=== PATIENT | female | born 1950 | race Caucasian/White ===

== ENCOUNTER → 2017-11-06 13:21 | Outpatient (CLI) | payer SELFPAY, MEDICARE, OTHER ==
[2017-11-06 13:34] VITALS: BP 141/67; PULSE 46; RESP 16; O2SAT 94; BMI 26.2
--- NOTE | 2017-11-07 08:46 | CA.SCORE ---
Calcium Scoring Date of Study:: 11/06/17 Coronary Calcium Scoring: Coronary calcium score: 0.0 Conclusion: Coronary calcium score: 0.0 Results: The patient underwent high resolution CT imaging of the chest on 11/06/2017 with attention to the coronary arteries. The images were examined and analyzed for the presence and extent of coronary artery calcification using coronary calcium quantification software. The patient was reported as tolerating the procedure well with no adverse events. The coronary calcium score was reported at 0.0. Based upon pre-published reference tables a coronary calcium score of 0 would be indicative of a very low cardiovascular disease risk and less than 5% chance of the presence of coronary artery disease. Impression: Coronary calcium score: 0.0 This note was generated with [employer] dictation software. It may contain incorrect words, spelling, and punctuation that were not noted in checking the note before signing.
== END ==
PROVIDERS: Family Provider Internal Medicine; PCP Internal Medicine; Visit Provider Internal Medicine
DX: E78.00 Pure hypercholesterolemia, unspecified (principal); Z82.49 Family history of ischemic heart disease and other diseases of the circulatory system
CPT/HCPCS: 75571; 76380

== ENCOUNTER → 2017-11-17 13:09 | Outpatient (CLI) | payer MEDICARE, OTHER, SELFPAY ==
--- NOTE | 2017-11-17 13:12 | BI_ITS ---
MAMMOGRAPHY - UNILATERAL DIAGNOSTIC: LEFT BREAST REASON FOR EXAM: Female, 67 years old. One-month history of left breast tenderness. PERTINENT HISTORY: Personal history of breast cancer. Prior right mastectomy. TECHNIQUE: Digital unilateral breast chad (3D mammographic acquisition) in the CC and MLO projections. 2-D mediolateral oblique (MLO) and craniocaudad (CC) views of both breasts were obtained. CAD: Full Field Digital Mammography with Computer Added Detection was performed. COMPARISON: Comparison is made with prior study dated December 26, 2016. FINDINGS: Breast Composition: The breasts are heterogeneously dense, which may obscure small masses. There are no dominant masses or suspicious calcifications. No other significant abnormalities are identified. There has been no significant change since the prior study. BI/DIAG MAMM W/CAD, UNILAT IMPRESSION: Stable unilateral diagnostic mammogram. With the patient's history of left breast tenderness, correlation with ultrasound is recommended. ASSESSMENT CATEGORY: BIRADS Category 0: Incomplete. Need additional imaging evaluation. A letter regarding these results will be sent to the patient by the facility within 30 days. Approximately 10% of breast cancers are not detected by mammography. A normal mammogram should not delay biopsy of a clinically suspicious abnormality. Electronically Signed: Justice Dahl MD at 14:13 EDT Tel [phone], Service support ,
--- NOTE | 2017-11-17 13:59 | US_ITS ---
STUDY: ULTRASOUND BREAST - LEFT REASON FOR EXAM: Female, 67 years old. Pain in the left breast. TECHNIQUE: Axial and longitudinal images of the LEFT breast were performed with a high resolution ultrasound transducer. COMPARISON: Comparison is made with prior mammogram done earlier in the day. FINDINGS: LEFT Breast: The entire left breast was examined by ultrasound. There is a homogeneous fibroglandular tissue. No solid or cystic mass lesion is seen. US/Breast Limited Unilateral IMPRESSION: Unremarkable sonographic evaluation of the left breast. Routine mammographic follow-up is recommended. ASSESSMENT CATEGORY: BIRADS Category 1: Negative. A letter regarding these results will be sent to the patient by the facility within 30 days. Electronically Signed: Justice Dahl MD at 8:37 EDT Tel [phone], Service support ,
== END ==
PROVIDERS: Family Provider Internal Medicine; PCP Internal Medicine; Visit Provider Internal Medicine
DX: N64.4 Mastodynia (principal)
CPT/HCPCS: 76642; 77061; 77065; G0279

== ENCOUNTER → 2018-02-17 16:44 | Outpatient (CLI) | payer MEDICARE, OTHER, SELFPAY ==
[2017-12-15 11:03] VITALS: BMI 26.2
--- NOTE | 2018-02-17 16:52 | RAD_ITS ---
STUDY: X-RAY - RIGHT KNEE REASON FOR EXAM: Female, 67 years old. Right knee pain without acute injury. TECHNIQUE: 4 view(s) of the knee. COMPARISON: None. FINDINGS: Osteopenia. Mild DJD lateral compartment with minimal joint margin osteophytic lipping. Mild to moderate DJD of the medial compartment with joint margin osteophytic lipping slightly more prominent than that seen in the lateral compartment. Very minimal osteophytic lipping about the margins of the patellofemoral joint. No effusion. No fracture. Periarticular soft tissues exhibit no acute process. RAD/Knee 4 or More Views IMPRESSION: Mild tricompartmental DJD. No effusion. No injury. Electronically Signed: Richard Romano MD at 17:49 EST Tel , Service support ,
--- OUTSIDE RECORDS SUMMARY | 2018-05-22 05:23 | XMS RPT_ITS | Continuity of Care Document ---
:1950 Author Organization [facility] Address [address] [facility] [address] [place] [address] Phone Care Team Providers Name Role Phone Mónica Petty MD Unavailable Dr. Junior Boyle Unavailable Yasmin HORNER , Dr. Ishmael Mcarthur Unavailable FLOR Santana Unavailable Unavailable Unavailable Unavailable Problems Name Dates Details Abnormal EKG (R94.31, 794.31) Comments: conduction delay staying now ? rhythm willcheck [facility] cardio hard to tell with artifact. will do echo and CCTA had cath 2012 good no signs and symptoms Status: Active Abnormal thyroid stimulating hormone (TSH) level (R79.89, 790.6) Comments: will recheck was sick recently. was elevatedin TSH. will recheck in 8 weeks explain what mean Status: Active Allergic rhinitis (J30.9, 477.9) Comments: spring/fall--stable Status: Active Asthma (J45.909, 493.90) Comments: stable on low dose advair. has rescue inhaler if need. having signs and symptoms now.night signs and symptoms not have rescue really talk about need to use rescue....willincrease dulera 200 bid during t his season. will go back down january been good now. added bbkler for htn and tremor watch for increase and she did not notice that. Status: Active Atrophic vaginitis (N95.2, 627.3) Comments: dry and irritated and has painful ingtercourse the coconut oil not help no estrogen with breast cancer so told about kelsea laila laser Status: Active Benign essential hypertension (I10, 401.1) Comments: Dr. jose juan ALVES had cough and thickeningin throat better now. talk about andioedema will call me if she has swelling of the lip or tongue had to come off propranolol with low HR Status: Active BMI 24.0-24.9, adult (Z68.24, V85.1) Status: Active BMI 27.0-27.9,adult (Z68.27, V85.23) Status: Active Bradycardia (R00.1, 427.89) Comments: jose juan now stop propranolol all together Status: Active Breast cancer, right (C50.911, 174.9) Comments: stable see heme onc. Status: Active Breast tenderness in female (N64.4, 611.71) Status: Active Chest wall tenderness (R07.89, 786.52) Comments: think costochondritis but willrechek breast. mobic help and will go to tyelnol Status: Active CRP elevated (R79.82, 790.95) Comments: crp coming down down to 11. Status: Active Current nonsmoker (Renamed from Current non-smoker) (Z78.9, V49.89) Status: Active Deliveries (Parity) Comments: Term, 4 Status: Active Encounter for routine adult medical exam with abnormal findings (Z00.01, V70.0) Comments: 09-23-16 colonoscopy 2006 due this year, refuse flu, had tetanus and shingles, still needs prevnar,refuse BD, mammogram , whisper test WNL, last eye exam was in June [address] Bishop and incl uded glaucoma screening, 6CIT test Status: Active Fam hx-ischem heart disease (Z82.49, V17.3) Comments: both parents. stress and echo good -, 13. homocystiene good had cath - good. right now no signs and symptoms but conduction delay on ekg check CCTA =0 and echo Status: Active GERD (gastroesophageal reflux disease) (K21.9, 530.81) Comments: taken off ASA per Jose Juan, on zantac bid Status: Active Hematuria (R31.9, 599.7) Comments: cystoscope 2009. US kidneys 2009. stable Status: Active Hypercholesterolemia (E78.00, 272.0) Comments: reviewed with patient recent tests and hx normal cath, ldl high but in small LDL great, MPO great and LDL -p good. HDL high. at this point pt not want ot go on meds. so hold off. working getting rid saturate. animal fat Status: Active Malignant neoplasm of upper-outer quadrant of right breast in female, estrogen receptor positive (C50.411, 174.4) Comments: seh does not need chemo seeing Dr Jones. had surgery. Status: Active Mitral valve prolapse (I34.1, 424.0) Comments: echo 08-11 mild MR. Status: Active Need for zoster vaccination (Z23, V04.89) Status: Active Osteoporosis (M81.0, 733.00) Comments: labs workup 2009 good. add calcium vit d bid. fosamax dizzy, evista-chd in family. bis phonates severe CP. bd 08-12 doing vibration machine03-20 last bd Status: Active Parkinson disease, symptomatic (G20, 332.0) Aug-2014 Comments: 12-18 patient off Mirapex and on Sinimet tid and seems to be working bettertrev chavez. doing natural med now with Dr. Will tompkins. Status: Active Pregnancies () Comments: 4 Status: Active Screening for cervical cancer (Z12.4, V76.2) Comments: repap pt today because solution in pap cup was Status: Active Screening mammogram, encounter for (Z12.31, V76.12) Status: Active Urinary tract infection, site not specified (N39.0, 599.0) Status: Active Vitamin D deficiency, unspecified (E55.9, 268.9) Comments: good Status: Active Wart (B07.9, 078.10) Comments: removed nylon suture used for hemostasis. Status: Active Well woman exam (Z00.00, V70.0) Comments: mammo 08-12, scope 2006, refuse BD Status: Active Well woman exam (Renamed from Encounter for well woman exam) (Z01.419, V72.31) Comments: 10-27-17 [facility] physical mammogram , colonoscopy , due for prevnar 13, refuse influenza, otherwise immunizations are up to date, BD 1-16-18, PHQ-9 (2) minimal, 6CIT= mammo 12-17, BD 1-18. pap was 2012. Status: Active Medications Name Dates Details Advair Diskus 250-50 MCG/DOSE Inhalation Aerosol Powder Breath Activated 1 puff Aero Pow Br Act bid for 0 days Quantity: 3 {Disk} Refills: 3 Ordered:11-Nov-2017 Mónica Petty MD, MD, Dana M Start : 11-Nov-2017 Active Arimidex 1 MG Oral Tablet 1 (one) Tablet qd for 0 days Quantity: 30 {Tablet} Refills: 0 Ordered:01-Sep-2017 Mónica Petty MD, MD, Dana M Start : 01-Sep-2017 Active Co-Adren uad qd Active Liposomel Glutathione uad qd Active Lisinopril 40 MG Oral Tablet 1 Tablet daily for 0 days Quantity: 90 {Tablet} Refills: 3 Ordered:01-Sep-2017 Jovanny HORNER, Mónica Lemons MD Start : 01-Sep-2017 Active Macrobid 100 MG Oral Capsule uad Capsule postcoital prn for 0 days Quantity: 30 {Capsule} Refills: 3 Ordered:27-Oct-2017 Jovanny HORNER, Mónica Lemons MD Start : 27-Oct-2017 Active Mobic 15 MG Oral Tablet 1 (one) Tablet Tablet in am for 0 days Quantity: 15 {Tablet} Refills: 0 Ordered:27-Oct-2017 FLOR Santana Start : 27-Oct-2017 Active NALTREXONE (Powder) 4.5mg qd Active Comments:comes from [facility], Dr. Will Ruiz Choline uad qd Active Proventil HFA 108 (90 Base) MCG/ACT Inhalation Aerosol Solution 1-2 Aerosol Soln TID/PRN for 0 days Quantity: 1 {Each} Refills: 0 Ordered:26-Dec-2015 Mónica Petty MD, MD, Dana M Start : 26-Dec-2015 Active Sinemet 25-100 MG Oral Tablet 1 (one) Tablet qid for 0 days Quantity: 120 {Tablet} Refills: 3 Ordered:22-Dec-2017 Mónica Petty MD, MD, Dana M Start : 22-Dec-2017 Active VITAMIN D3, 5000UNIT (Oral Tablet) 1 cap Tablet qd for 0 days Quantity: 30 {Tablet} Refills: 0 Ordered:10-Aug-2015 Mónica Petty MD, MD, Dana M Start : 10-Aug-2015 Active ACTONEL, 150MG (Oral Tablet) 1 Tablet monthly for 0 days Quantity: 3 {Tablet} Refills: 3 Ordered:22-Apr-2013 Mónica Petty MD, MD, Dana M Start : 22-Apr-2013 End : 22-Apr-2013 Inactive AUGMENTIN, 875-125MG (Oral Tablet) 1 Tablet bid for 10 days Quantity: 22 {Tablet} Refills: 0 Ordered:08-Mar-2008 RosemaryKellen islas CNP Start : 08-Mar-2008 End : 23-Mar-2008 Inactive Azo Tabs 3 per day PRN Inactive BENADRYL, 25MG (Oral Tablet) 1 QD, PRN for 0 days Refills: 0 Ordered:15-Jun-2009 FLOR SantanaInactive BIAXIN XL PAC, 500MG (Oral Tablet Extended Release 24 Hour) 2 (two) Tablet ER 24HR Daily for 0 days Quantity: 2 {Tablet_ER_24HR} Refills: 0 Ordered:08-May-2006 Aliya Martinez Start : 08-May-2006 End : 04-Sep-2006 Inactive Comments:dispense 2 biaxin xl packs Calan SR 180 MG Oral Tablet Extended Release 1 Tablet ER qd for 0 days Quantity: 90 {Tablet} Refills: 3 Ordered:19-Feb-2016 FLOR Santana Start : 28-Nov-2015 End : 19-Feb-2016 Inactive Cipro 500 MG Oral Tablet 1 (one) Tablet bid for 10 days Quantity: 20 {Tablet} Refills: 0 Ordered:13-Oct-2017 Mónica Petty MD, MD, Dana M Start : 13-Oct-2017 End : 23-Oct-2017 Inactive CIPRO, 500MG (Oral Tablet) 1 (one) Tablet BID for 0 days Quantity: 14 {Tablet} Refills: 0 Ordered:10-Aug-2015 FLOR Santana Start : 04-Jan-2015 End : 10-Aug-2015 Inactive COQ-10, 200MG (Oral Capsule) 1 qd (200 MG) Inactive DIFLUCAN, 150MG (Oral Tablet) 1 (one) Tablet once for 0 days Quantity: 1 {Tablet} Refills: 1 Ordered:15-Jun-2009 FLOR Santana Start : 01-May-2009 Inactive Dopa-Mind uad qd Inactive Dulera 200-5 MCG/ACT Inhalation Aerosol 1 (one) Aerosol Aerosol bid for 0 days Quantity: 1 {Each} Refills: 3 Ordered:12-Jul-2016 Mónica Petty MD, MD, Dana M Start : 12-Jul-2016 End : 12-Jul-2016 Inactive Comments:12 samples given ERGOCALCIFEROL, 59036ZIYU (Oral Capsule) 1 Capsule twice weekly for 0 days Quantity: 8 {Capsule} Refills: 3 Ordered:24-Jul-2010 FLOR Santana Start : 01-Sep-2008 End : 24-Jul-2010 Inactive EVISTA, 60MG (Oral Tablet) 1 Tablet qd for 0 days Quantity: 30 {Tablet} Refills: 5 Ordered:06-Sep-2009 Leola Mitchell Start : 06-Sep-2009 Inactive FOSAMAX, 70MG (Oral Tablet) 1 Q week for 0 days Refills: 0 Ordered:22-Sep-2008 FLOR Santana End : 22-Sep-2008 Inactive GUAIATUSSIN AC, 100-10MG/5ML (Oral Syrup) 1 Syrup 1 tsp qhs prn for 0 days Quantity: 6 {Ounce(s)} Refills: 0 Ordered:08-Mar-2008 FLOR Santana Start : 08-Mar-2008 End : 02-Aug-2008 Inactive Inderal LA 60 MG Oral Capsule Extended Release 24 Hour 1 (one) Capsule in am for 0 days Quantity: 30 {Capsule} Refills: 6 Ordered:01-Sep-2017 Mónica Petty MD, MD, Mónica Mcarthur Start : 01-Sep-2017 End : 01-Sep-2017 Inactive Comments:bradycardia KEFLEX, 500MG (Oral Capsule) 1 (one) Capsule bid for 7 days Quantity: 14 {Capsule} Refills: 0 Ordered:29-May-2009 Won AYERS Inessa Start : 27-Apr-2009 End : 04-May-2009 Inactive Lentra uad qd Inactive LEVAQUIN, 500MG (Oral Tablet) 1 Tablet qd for 0 days Quantity: 10 {Tablet} Refills: 0 Ordered:24-Jul-2010 FLOR Santana Start : 15-Mar-2010 End : 24-Jul-2010 Inactive NASONEX, 50MCG/ACT (Nasal Suspension) 2 (two) Suspension Daily for 0 days Refills: 0 Ordered:07-Aug-2009 Gisela Narvaez Start : 02-Nov-2008 End : 04-Sep-2006 Inactive Pramipexole Dihydrochloride 1.5 MG Oral Tablet 1 (one) Tablet TID for 0 days Quantity: 90 {Tablet} Refills: 6 Ordered:11-Nov-2017 Mónica Petty MD, MD, Dana M Start : 11-Nov-2017 End : 11-Nov-2017 Inactive PREMARIN, 0.625MG/GM (Vaginal Cream) 1 Cream PV 1 jim twice a week for 0 days Quantity: 1 {Cream} Refills: 6 Ordered:06-Nov-2010 FLOR Santana Start : 06-Sep-2009 End : 06-Nov-2010 Inactive Procite-D uad qd Inactive Prolent uad qd Inactive PYRIDIUM, 200MG (Oral Tablet) 1 (one) Tablet tid prn for 0 days Quantity: 15 {Tablet} Refills: 0 Ordered:15-Jun-2009 FLOR Santana Start : 05-Jun-2009 Inactive TAURINE, 500MG (Oral Capsule) 1 qd (500 MG) Inactive ZETIA, 10MG (Oral Tablet) 1 Tablet qd for 0 days Quantity: 90 {Tablet} Refills: 3 Ordered:10-Aug-2015 Mónica Petty MD, MD, Dana M Start : 10-Aug-2015 End : 10-Aug-2015 Inactive Comments:patient did not like the side effects that she read ATELVIA, 35MG (Oral Tablet Delayed Release) [address] weekly for 0 days Quantity: 4 {Tablet_DR} Refills: 11 Ordered:14-May-2012 Mónica Petty MD, MD, Dana M Start : 14-May-2012 End : 14-May-2012 Discontinued METANX, 3-35-2MG (Oral Tablet) 1 Tablet daily for 0 days Quantity: 30 {Tablet} Refills: 3 Ordered:27-Feb-2012 Mónica Petty MD, MD, Mónica M Start : 27-Feb-2012 End : 19-Oct-2013 Discontinued Mirapex ER 0.75 MG Oral Tablet Extended Release 24 Hour 1 (one) Tablet tid for 0 days Quantity: 90 {Tablet} Refills: 0 Ordered:01-Sep-2017 Mónica Petty MD, MD, Dana M Start : 01-Sep-2017 End : 01-Sep-2017 Discontinued Neupro 3 MG/24HR Transdermal Patch 24 Hour 1 (one) Patch apply and change patch every 24 hours. for 0 days Quantity: 30 {Patch} Refills: 6 Ordered:27-Oct-2017 Mónica Petty MD, MD, Dana M Start : 27-Oct-2017 End : 27-Oct-2017 Discontinued PREDNISONE, 20MG (Oral Tablet) Tablet 2 a day for 5d, 1 for 5d, 1/2 for 5 d for 0 days Refills: 0 Ordered:01-Apr-2006 Aliya Martinez Start : 01-Apr-2006 End : 02-Jul-2007 Discontinued VISTARIL, 25MG (Oral Capsule) Capsule QID/PRN for 0 days Quantity: 10 {Capsule} Refills: 0 Ordered:01-Apr-2006 Aliya Martinez Start : 01-Apr-2006 End : 02-Jul-2007 Discontinued ZANTAC, 150MG (Oral Capsule) 1 bid for 0 days Refills: 0 Ordered:15-Nov-2014 Mónica Petty MD, MD, Dana M End : 15-Nov-2014 Discontinued Comments:This order discontinued per [facility]. Allergies and Adverse Reactions Name Dates Details Bactrim *ANTI-INFECTIVE AGENTS - MISC.* (Allergy) Status: Active Sulfa Drugs (Allergy) Status: Active Comments: per pt 09/25/16 Past Medical History Name Dates Details Abdominal pain, acute, left lower quadrant (R10.32, 789.04) Status: Inactive as of 10-Aug-2015 Acute sinusitis, unspecified (J01.90, 461.9) Status: Inactive as of 24-Aug-2008 BMI 25.0-25.9,adult (Z68.25, V85.21) Status: Resolved as of 22-Dec-2017 Cough (R05, 786.2) Status: Inactive as of 24-Jerzy-2009 Diverticulitis (K57.92, 562.11) Status: Inactive as of 10-Aug-2015 Dysuria (R30.0, 788.1) Comments: ? stress son stroke will increase water and cranberry because urine no wbc. Status: Inactive as of 15-Jun-2009 Dysuria (R30.0, 788.1) 18-Apr-2010 Status: Inactive as of 10-Aug-2015 Elevated blood-pressure reading without diagnosis of hypertension (R03.0, 796.2) Comments: at home 120/80's Status: Inactive as of 06-Nov-2010 Knee pain (M25.569, 719.46) Comments: better than was with injection but stil bad at end of day cheange aleve over to zorvalex with samples. Xray and PT if not better then to mri and orthosx. Status: Inactive as of 10-Aug-2015 Need for prophylactic vaccination and inoculation against influenza (Z23, V04.81) Status: Inactive as of 10-Aug-2015 Need for Tdap vaccination (Renamed from Need for agadtebygz-uyzuaku-nvoskurlk (Tdap) vaccine, adult/adolescent) (Z23, V06.1) Status: Resolved as of 01-Sep-2017 Osteitis deformans without mention of bone tumor (731.0) Status: Inactive as of 05-Nov-2011 Other specified viral infection, in conditions classified elsewhere and of unspecified site (B97.89, 079.89) Status: Inactive as of 15-Jun-2009 Pain in forearm, unspecified laterality (M79.639, 729.5) Comments: left tennis elbow--talk about rest, brace, nsaids handout given not better inject. 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 Status: Inactive as of 10-Aug-2015 Syncope and collapse (R55, 780.2) Comments: presyncope and really vasovagal reaction? why. had eye sclera bleed. ? blood sugar. check labs and discuss. Status: Inactive as of 10-Aug-2015 Unspecified Diagnosis Status: Inactive as of 10-Aug-2015 Unspecified Diagnosis Status: Inactive as of 10-Aug-2015 Unspecified Diagnosis Status: Resolved as of 01-Sep-2017 Unspecified Diagnosis Status: Inactive as of 15-Jun-2009 Unspecified Diagnosis Status: Inactive as of 10-Aug-2015 Unspecified open wound of other finger without damage to nail, initial encounter (S61.208A, 883.0) Status: Inactive as of 15-Jun-2009 Urinary frequency (R35.0, 788.41) Status: Inactive as of 10-Aug-2015 UTI symptoms (R39.9, 788.99) Status: Inactive as of 26-Dec-2015 Well Female (V70.0) (Renamed from Well Female (I)) (V70.0) Status: Inactive as of 10-Aug-2015 Wheezing (R06.2, 786.07) Status: Inactive as of 24-Aug-2008 Procedures Procedure Dates Details appendectomy in 1976 Completed breast biopsy 1999, 2000 Completed thermablation at 51 yo Completed tubal ligation 1977 Completed Date Value Details 15-Dec-2017 Oncology Visit Report Result: Comments: See Note; NOTES: [facility] [address] [place] [address] OFFICE VISIT Date of Service: 12/15/17 1053 MR#: [id number] Acct: [id number] Name: AZALIA HUNTLEY Rep #: [id number] : 1950 From: Angel Shin MD Age/Sex: 67/F Location: [facility] Status: Signed - Problem List (1) Primary cancer of right female breast Status: Chronic (2) Osteopenia St atus: Chronic - Date of Service Date of Service:: 12/15/17 - Chief Complaint Breast cancer - History of Present Illness Patient is a 66-year-old female who has been compliant with screening mammogra phy who in the late summer early fall 2016 felt a painless lump in the right breast. She waited until her screening mammogram in December 2016 which confirmed an abnormality that on biopsy was found to b e an invasive lobular carcinoma in January 2017. On February 12, 2017 she underwent a right breast mastectomy and sentinel lymph node biopsy that revealed an invasive lobular cancer measuring 2 cm in maximum diameter with an over old grade 2 (score 7) with no evidence of metastatic cancer in 1 identified sentinel lymph node. The cancer was in a single focus margins were -1.8 cm no lymphovascular inv asion. Tumor is ER positive (95%) UT positive (40%) (and HER-2 not overexpressed. Patient made an uneventful recovery from her surgery. Oncotype DX testing showed her to be at low risk group with a sco re of 13. Her past medical history is notable for Parkinson's disease, hypertension and vitamin D deficiency state. No family history of breast cancer Treatment: - February 12, 2017 she underwent a r ight breast mastectomy and sentinel lymph node biopsy. 2- Arimidex 03/2017- - Past Medical/Social History Past Medical History Cancer: Breast cancer Social History Social History: No changes Smoking Status Never smoker Review of Systems Constitutional:: Reports: Weakness, - - Parkinson's limits her activities Infrequent tolerable hot flashes. Denies: Fever, Sweats, Weight loss, Appetite change, Chills Cardiovascular:: Denies: Chest pain, Palpitations, Dyspnea on exertion, Orthopnea, PND, Shortness of breath Respiratory: Denies: Cough, Hemoptysis, Shortness of Breath, Wheezing Gastrointestinal: : Denies: Abdominal pain, Nausea, Vomiting, Diarrhea, Constipation, Hematochezia Genitourinary: Denies: Dysuria, Hematuria, 15, Flank pain Musculoskeletal:: Reports: - - Nonspecific musculoskeletal ache s and pains, manageable with Tylenol. Denies: Back pain, Myalgia, Arthralgia Skin: Denies: Rash, Skin Changes, Wounds Neurological:: Reports: - - Parkinson's. Denies: Headache, Dizziness, Visual changes , Tinnitus, Hearing loss Psychiatric: Denies: Anxiety, Depression, Homicidal Ideations, Suicidal Ideations Vital Signs Height 5 ft 2 in Weight: 65.771 kg Weight in Pounds 145.0 lbs Pulse Ox 97 - Ph ysical Exam General: Alert, Oriented x3, No apparent distress, - - ECOG 1-2, parkinsonian HEENT: Atraumatic, PERRLA, EOMI, Normocephalic Oropharynx:: Dry mucosa Neck:: Supple, Trachea midline. Negative for: JVD, bilateral Cardiac:: Regular rate, Regular rhythm, Normal S1, Normal S2. Negative for: Murmur Lungs: Clear to auscultation, Excusion symmetrical. Negative for: Rhonchi, Wheezes Abdomen:: Soft, Non-tender, Non-distended. Negative for: Hepatosplenomegaly Extremities:: Negative for: Cyanosis, Edema Neurological: Neuro grossly intact - No lateralization, parkinsonian Skin:: Negative for: Lesions, Rash, Petechiae, Ecchymosis Psychiatric:: Appropriate affect, Euthymic Lymphatics:: Negative for: Cervical lymphadenopathy, Supraclavicular lymphadenopathy, Axillary lymphadenopathy Diagnostic Data: Ma mmogram and ultrasound November 2017, no evidence to suggest malignancy Assessment and Plan 1- 67 year-old female with stage Ia (T1c, N0, M0) invasive lobular carcinoma of the right breast grade 2, E R positive, UT positive, HER-2/skylar not overexpressed. Patient is status post mastectomy with sentinel lymph node biopsy January 2017. Adequate negative margin. Oncotype DX score low risk group. Starte d systemic adjuvant hormonal therapy with an aromatase inhibitor for at least 5 years March 2017. Well-tolerated with no notable side effects. 2- progressive bone loss secondary to menopause with supe r added aromatase inhibitor therapy started March 2017. Advise continue vitamin D calcium supplement plus Prolia/6M. 3-annual mammogram to schedule, December 2018. Impression and recommendation discu ssed. Follow-up in 3 months Medications: Prescriptions This Visit Medication Instructions Recorded Anastrozole [Arimidex] 1 mg PO DAILY 90 Days #90 tab 09/11/17 Primary Care Provider: Mónica galicia Provider: Angel Shin MD 12/15/17 1116 <Electronically signed by Angel Shin MD> Date Angel Shin MD [facility] Signature: Date (if applicable) CC: 17-Nov-2017 Breast Limited Unilateral Result: Comments: See Note; NOTES: [facility] [address] [place] [address] Breast Limited Unilateral MR#: [id number] Acct: [id number] Name: PARUL HUNTLEY Rep # : [id number] : 1950 F 67 From: Justice Gerardo MD PCP: Mónica Petty MD Status: REG CLI Study: Breast Limited Unilateral Date of Exam: 11/17/17 Exam# [id number] Ordering Dr: Mónica Petty MD STUDY: ULTRASOUND BREAST - LEFT REASON FOR EXAM: Female, 67 years old. Pain in the left breast. TECHNIQUE: Axial and longitudinal images of the LEFT breast were performed with a high resolution ultra sound transducer. COMPARISON: Comparison is made with prior mammogram done earlier in the day. FINDINGS: LEFT Breast: The entire left breast was examined by ultras ound. There is a homogeneous fibroglandular tissue. No solid or cystic mass lesion is seen. US/Breast Limited Unilateral IMPRESSION: Unremarkable sonographic evaluation of the left breast. Routine mammographic follow-up is recommended. ASSESSMENT CATEGORY: BIRADS Category 1: Negative. A letter regarding these results will be sent to the patient by the facility within 30 days. Electronically Signed: Justcie Gerardo MD at 8:37 EDT Tel [phone], Service support , Fax CC: Mónica Petty MD Yarn Tester: Signed 17-Nov-2017 DIAG MAMM W/CAD, UNILAT Result: Comments: See Note; NOTES: [facility] [address] [place] [address] DIAG MAMM W/CAD, UNILAT MR#: [id number] Acct: [id number] Name: PARUL HUNTLEY Rep #: [id number] : 1950 F 67 From: Justice Gerardo MD PCP: Mónica Petty MD Status: REG CLI Study: DIAG MAMM W/CAD, UNILAT Date of Exam: 11/17/17 Exam# [id number] Ordering Dr: Mónica Petty MD [facility] MOGRAPHY - UNILATERAL DIAGNOSTIC: LEFT BREAST REASON FOR EXAM: Female, 67 years old. One-month history of left breast tenderness. PERTINENT HISTORY: Personal history of breast cancer. Prior right mast ectomy. TECHNIQUE: Digital unilateral breast chad (3D mammographic acquisition) in the CC and MLO projections. 2-D mediolateral oblique (MLO) and craniocaudad (CC) views of both breasts were obtained. CAD: Full Field Digital Mammography with Computer Added Detection was performed. COMPARISON: Comparison is made with prior study dated December 26, 2016. FINDINGS: B reast Composition: The breasts are heterogeneously dense, which may obscure small masses. There are no dominant masses or suspicious calcifications. No other significant abnormalities are identified. There has been no significant change since the prior study. BI/DIAG MAMM W/CAD, UNILAT IMPRESSION: Stable unilateral diagnostic mammogram. With t he patient's history of left breast tenderness, correlation with ultrasound is recommended. ASSESSMENT CATEGORY: BIRADS Category 0: Incomplete. Need additional imag ing evaluation. A letter regarding these results will be sent to the patient by the facility within 30 days. Approximately 10% of breast cancers are not detected by mammography. A normal mammogram shou ld not delay biopsy of a clinically suspicious abnormality. Electronically Signed: Justice Gerardo MD at 14:13 EDT Tel [phone], Service support , CC: Mónica Petty MD Yarn Tester: Signed 06-Nov-[address] w/CCTA Result: Comments: See Note; NOTES: [facility] Imaging Services [address] [place] [address] [id number] w/CCTA MR#: [id number] Acct: [id number] Name: PARUL HUNTLEY Rep #: [id number] : 1950 F 67 From: Farhat Montalvo DO PCP: Mónica Petty MD Status: REG CLI Study: Limited Chest CT w/CCTA Date of Exam: 11/06/17 Exam# [id number] Ordering Dr: Mónica Petty MD STUDY: CAR DIA CALCIUM SCORING - CT CHEST REASON FOR EXAM: Female, 67 years old. Elevated cholesterol. History of breast cancer. RADIATION DOSAGE (If Supplied By Facility): CTDIvol = ( 12.19 ) mGy, DLP = ( 243. 79 ) mGycm TECHNIQUE: Axial non-enhanced images were acquired through the heart for the sole purpose of measuring coronary artery calcium. Individualized dose optimization techniques were used for [facility] s CT. COMPARISON: Chest, January 26, 2013. FINDINGS: This portion of the report is being generated solely for the evaluation of noncoronary artery structures whic h have been assessed on plain another report. The visualized lungs are clear. The heart is normal in size. Normal pericardium. Normal mediastinum and vazquez. Normal pulmonary arteries. There is minimal atherosclerotic changes of the thoracic aorta without aneurysm. Normal thoracic spine. There is absence of the right breast. Normal visualized upper abdomen. ORD ER #: [id number] CT/Limited Chest CT w/CCTA IMPRESSION: 1. Status post right mastectomy. 2. There is no intrathoracic abnormality. Electronically Signed: Farhat Montalvo DO at 18:54 EDT Tel [phone], Service support , CC: Mónica Petty MD Yarn Tester: Signed 11-Sep-2017 Oncology Visit Report Result: Comments: See Note; NOTES: [facility] [address] [place] [address] [place] [address] OFFICE VISIT Date of Service: 09/11/17 [facility] MR#: [id number] Acct: [id number] Name: AZALIA HUNTLEY Rep #: [id number] : 1950 From: Angel Shin MD Age/Sex: 67/F Location: OMD Status: Signed - Problem List (1) Primary cancer of right female breast Status: Chronic (2) Osteopenia St atus: Chronic - History of Present Illness Patient is a 66-year-old female who has been compliant with screening mammography who in the late summer early fall 2016 felt a painless lump in the right br east. She waited until her screening mammogram in December 2016 which confirmed an abnormality that on biopsy was found to be an invasive lobular carcinoma in January 2017. On February 12, 2017 she und erwent a right breast mastectomy and sentinel lymph node biopsy that revealed an invasive lobular cancer measuring 2 cm in maximum diameter with an over old grade 2 (score 7) with no evidence of metasta tic cancer in 1 identified sentinel lymph node. The cancer was in a single focus margins were -1.8 cm no lymphovascular invasion. Tumor is ER positive (95%) UT positive (40%) (and HER-2 not overexpresse d. Patient made an uneventful recovery from her surgery. Oncotype DX testing showed her to be at low risk group with a score of 13. Her past medical history is notable for Parkinson's disease, hyperte nsion and vitamin D deficiency state. No family history of breast cancer Treatment: - February 12, 2017 she underwent a right breast mastectomy and sentinel lymph node biopsy. 2- Arimidex 03/2017- - P ast Medical/Social History Past Medical History Cancer: Breast cancer Social History Social History: No changes Smoking Status Never smoker Review of Systems Constitutional:: Reports: - - Activiti es limited by Parkinson's No hot flashes. Denies: Fever, Sweats, Weight loss, Appetite change, Chills Cardiovascular:: Denies: Chest pain, Palpitations, Dyspnea on exertion, Orthopnea, PND, Shortness of breath Respiratory: Denies: Cough, Hemoptysis, Shortness of Breath, Wheezing Gastrointestinal:: Denies: Nausea, Vomiting, Diarrhea, Constipation, Hematochezia Genitourinary: Denies: Dysuria, Hematuria, 15, Flank pain Musculoskeletal:: Denies: Back pain, Myalgia, Arthralgia Skin: Denies: Rash, Skin Changes, Wounds Neurological:: Reports: Tremors, - - Parkinson's. Denies: Headache, Dizziness, Visual ch anges, Tinnitus, Hearing loss Psychiatric: Denies: Anxiety, Depression, Homicidal Ideations, Suicidal Ideations Comment: No lumps in breasts Vital Signs Height 5 ft 2 in Weight: 66.043 kg Weight in Rebecca nds 145.6 lbs Pulse Ox 94 - Physical Exam General: Alert, Oriented x3, No apparent distress, - - ECOG 1-2 Parkinsonian HEENT: Atraumatic, PERRLA, EOMI, Normocephalic Oropharynx:: Dry mucosa Neck:: S upple, Trachea midline. Negative for: JVD, bilateral Cardiac:: Regular rate, Regular rhythm, Normal S1, Normal S2. Negative for: Murmur Lungs: Clear to auscultation, Excusion symmetrical. Negative for: Rhonchi, Wheezes Abdomen:: Soft, Non-tender, Non-distended. Negative for: Hepatosplenomegaly Extremities:: Negative for: Cyanosis, Edema Neurological: Neuro grossly intact - With parkinsonian features a nd tremor Skin:: Negative for: Lesions, Rash, Petechiae, Ecchymosis Psychiatric:: Appropriate affect, Euthymic Lymphatics:: Negative for: Cervical lymphadenopathy, Supraclavicular lymphadenopathy, Axill handy lymphadenopathy Assessment and Plan 1- 66-year-old female with stage Ia (T1c, N0, M0) invasive lobular carcinoma of the right breast grade 2, ER positive, UT positive, HER-2/skylar not overexpressed. Patient is status post mastectomy with sentinel lymph node biopsy January 2017. Adequate negative margin. Oncotype DX score low risk group. Started systemic adjuvant hormonal therapy with an aromatas e inhibitor for at least 5 years March 2017. Well-tolerated with no notable side effects. 2-progressive bone loss secondary to menopause with super added aromatase inhibitor therapy started March 04. Advise continue vitamin D calcium supplement plus Prolia/6M. 3-annual mammogram to schedule, December 2017. Impression and recommendation discussed. Follow-up in 3 months Medications: Prescription s This Visit Medication Instructions Recorded Anastrozole [Arimidex] 1 mg PO DAILY 90 Days #90 tab 06/12/17 Primary Care Provider: Mónica Petty Referring Provider: Angel Shin MD 09/11/17 112 0 <Electronically signed by Angel Shin MD> Date Angel Shin MD Cosigner Signature: Date (if applicable) CC: Mónica Petty MD 22-Aug-2017 Cardiology Visit Report Result: Comments: See Note; NOTES: [facility] [address] [place] [address] OFFICE VISIT Date of Service: 08/22/17 MR#: [id number] Acct: [id number] Name: MARY HUNTLEY Rep #: [id number] : 1950 Provider: Johann Drake MD Age/Sex: 67/F Location: [facility] Status: Signed HPI HPI Chief Complaint: Follow-up visits. Details: PARUL HUNTLEY, is a 67 F who presen ts to the office today for a follow-up visit. She is a lady with a history of hypertension recently developed Parkinson's a left bundle branch block who returns for follow-up visit. She denies any chest pain or shortness breath or paroxysmal nocturnal dyspnea or pedal edema she has complained of fatigue but is not clear whether this is secondary to her medication or whether from her previous experienc e of breast cancer. She has had no neck arm or jaw discomfort suggest angina her physical exam today demonstrates clear lung melara regular rate and rhythm bradycardia and normal blood pressures. 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 DAILY 02/10/17 [History Confirmed 08/22/17] Breast Prosthesis #1 ea 03/04/17 [Rx Confirme d 08/22/17] Mastectomy Bra #4 ea 03/05/17 [Rx Confirmed 04/04/17] Anastrozole [Arimidex] 1 mg PO DAILY 90 Days #90 tab 06/12/17 [Rx Confirmed 08/22/17] Mastectomy bra #12 ea 06/12/17 [Rx] denosumab 120 mg/1.7 mL (70 mg/mL) subcutaneous solution 120 mg SC .COMPLEX 08/22/17 [History Confirmed 08/22/17] lisinopril 40 mg tablet 40 mg PO QDAY #90 tab 08/22/17 [Rx Confirmed 08/22/17] pramipexole 0.75 mg tab let 0.75 mg PO TID tab 08/22/17 [History Confirmed 08/22/17] Ejection fraction %: 60 to 64 PFSH Medical History Parkinson disease (Chronic) Osteopenia (Chronic) Nonrheumatic mitral (valve) insufficiency (Chronic) Sinus bradycardia (Chronic) HLD (hyperlipidemia) (Chronic) HTN (hypertension) (Chronic) Estrogen receptor positive status [ER+] (Chronic) Ac quired absence of right breast and nipple (Chronic) Asthma (Chronic) Estrogen receptor positive status (ER+) (Chronic) GERD (gastroesophageal reflux disease) (Chronic) INVASIVE LOBULAR CARCINOMA RIGHT B REAST (Chronic) Ptosis of breast (Chronic) Disproportion of reconstructed breast (Resolved) Primary cancer of right female breast (Inactive) Surgical History S/P right mastectomy (Chronic) History of left heart catheterization (Chronic 01/26/13) BREAST BIOPSY X2 IN 1997 (Chronic) History of appendectomy (Chronic) THERMABLATION (Chronic) TUBAL LIGATION (Chronic) Family History Father , AGE 60 CAD (coronary artery disease) Myocardial infarction Mother , AGE 70 Myocardial infarction CAD (coronary artery disease) Diabetes Sister CAD (coronary artery disease) Social History Smoking Status: Never smoker alcohol intake: current alcohol intake frequency: other Alcohol typ e: wine details: PATIENT HAS A RARE GLASS OF WINE substance use type: does not use ROS Const Const: Negative for fatigue, weakness, body ache, fever(s), headache(s), chills, frequent falls, night sweats, daytime sleepiness, difficulty sleeping, excessive sweating, weight gain, weight loss, increased appetite, poor appetite, anorexia or other Eyes Eyes: Negative for blind spots, loss of peripher al vision, transient loss of vision, blurry vision, change in vision, double vision, floaters, tunnel vision or other ENT ENT: Negative for headache(s), dizziness, hearing loss, tinnitus, Nosebleed/epis taxis, balance problems, post nasal drip, lip swelling, tongue swelling, bleeding gums, hoarseness, neck pain, dry mouth or other Cardio Chest Pain: No Palpitations: No Edema: None Muscle aches with wal dilip: None Resp Respiratory: Positive for Cough; negative for SOB with activity, SOB at rest, SOB orthopnea\SOB lying down, Coughing up blood/hemoptysis, chest congestion, pain on inspiration, snoring, stridor, wheezing, crackles, paroxysmal nocturnal dyspnea or other GI GI: Negative nausea, vomiting, heartburn, constipation, belching, bloating, cramping, vomiting blood/hematemesis, bright, red blood in stools, black,tarry stools, loose stools, Difficulty Swallowing or other : Negative for hematuria, frequent nighttime urination/ nocturia, erectile dysfunction or abnormal vaginal bleeding Musc Musc: Negative for balance problems, muscle aches/ myalgia, muscle weakness or joint pain Skin Skin: Negative redness, non-healing lesions, rash, unusual bruising, skin ulcer, wounds, jaundice or other Neuro Neuro: Negative for weakness, headache(s), frequent falls, blurry vision, double vision, dizziness, lightheadedness, near syncope, syncope, orthostatic symptoms, confusion, memory loss, restless l egs, vertigo, seizures, lack of coordination or other Blaine Hematologic/Lymphatic: Negative for easy bleeding, easy bruising, enlarged lymph nodes or other Endo Endo: Negative for fatigue, excessive swea ting, cold intolerance, heat intolerance, flushing, increased thirst/drinking, increased hunger, hair loss, hair growth or other Psych Psych: Negative for anxiety, depression, thoughts of harming anyone , thoughts of harming yourself, visual hallucinations, panic attacks or audible hallucinations Allergy Allergy/Immunology: Negative for lip swelling, Negative for tongue swelling, Negative for rash, Neg ative for throat swelling, Negative for hives Cardiology Exam Const Appearance: cooperative, healthy appearing, well developed, well groomed and no acute distress Nutritional Appearance: well nourishe d and average body habitus Orientation: alert, awake and oriented x3 Head Head: normal to inspection, normocephalic and atraumatic Ears: hearing grossly normal bilaterally and external ears normal Nose: external nose normal, nasal mucous membranes and turbinates normal, nares normal, septum normal, no nasal discharge Face and Sinus: face symmetric Mouth: oral mucosae normal, tongue normal, oropharynx normal and moist mucous membranes Teeth and gingiva: dentition normal Throat: posterior oropharynx normal, tonsils normal and uvula midline Eyes General: appearance normal, both eyes and all related str uctures Eyelids: eyelids normal Conjunctivae: conjunctivae normal Pupils: PERRL, normal by confrontation and accommodation normal EOM: EOM intact bilaterally Neck Neck: normal visual inspection, trachea midline and no JVD JVD: +5 Carotids: normal carotid upstroke and bounding pulses Chest Chest inspection: normal inspection of the chest, symmetric chest movement and normal respiratory effort Auscultat ion: Bilateral: Clear to Auscultation Cardio Palpation: normal PMI Rate: regular rate Rhythm: regular rhythm Heart sounds: S1 normal, S2 normal and normal, physiologic split S2; negative rub, gallop or murmur GI GI: normal to inspection, soft, no hepatosplenomegaly and bowel sounds present Neuro General: alert, awake, oriented x3, no focal sensory deficit, gait normal and moves all extremities Skin Sk in: no rashes or lesions noted Extremities Pulses: Normal: Right Femoral Pulse, Left Femoral Pulse, Right Dorsalis Pedis Pulse, Left Dorsalis Pedis Pulse, Right Posterior Tibial Pulse, Left Posterior Ti bial Pulse, Right Radial Pulse, Left Radial Pulse Lower Extremity Edema: None: Bilateral Musculoskel Musculoskeletal: No joint tenderness Psych Psychological: normal affect Assessment AND Plan 1. Esse ntial hypertension I10 Plan She does have a history of hypertension and with his to have a left bundle branch block as she is bradycardic I will suggest that we discontinue the propranolol and increase her lisinopril to 40 mg once a day. I suspect that this would be better at keeping her blood pressure under good control and making her feel better as well. No other changes will be made I discussed the above with her she does understand. Thank you for allowing me to participate in the care of your patient. 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) Coding Level of Care Code Off vis,est,level 3 Diagnoses Essential hypertension I10 Hypertension type: essential hypertension Coding Level of Care Code Off vis,est,leve l 3 Diagnoses Essential hypertension I10 Hypertension type: essential hypertension 08/22/17 1055 <Electronically signed by Johann Drake MD> Date Johann Aquinoer Signature: Date (if applicable) CC: Mónica Petty MD 12-Jun-2017 Oncology Visit Report Result: Comments: See Note; NOTES: [facility] [address] [place] [address] OFFICE VISIT Date of Service: 06/12/17 1108 MR#: [id number] Acct: [id number] Name: AZALIA HUNTLEY Rep #: [id number] : 1950 From: Angel Shin MD Age/Sex: 66/F Location: OMD Status: Signed - Problem List (1) Primary cancer of right female breast Status: Acute (2) Osteopenia Stat us: Chronic - Date of Service Date of Service:: 06/12/17 - Chief Complaint Breast cancer - History of Present Illness Patient is a 66-year-old female who has been compliant with screening mammograph y who in the late summer early fall 2016 felt a painless lump in the right breast. She waited until her screening mammogram in December 2016 which confirmed an abnormality that on biopsy was found to be an invasive lobular carcinoma in January 2017. On February 12, 2017 she underwent a right breast mastectomy and sentinel lymph node biopsy that revealed an invasive lobular cancer measuring 2 cm in ma ximum diameter with an over old grade 2 (score 7) with no evidence of metastatic cancer in 1 identified sentinel lymph node. The cancer was in a single focus margins were -1.8 cm no lymphovascular invas ion. Tumor is ER positive (95%) UT positive (40%) (and HER-2 not overexpressed. Patient made an uneventful recovery from her surgery. Oncotype DX testing showed her to be at low risk group with a score of 13. Her past medical history is notable for Parkinson's disease, hypertension and vitamin D deficiency state. No family history of breast cancer Treatment: February 12, 2017 she underwent a rig ht breast mastectomy and sentinel lymph node biopsy. 2- Arimidex 03/2017- - Past Medical/Social History Past Medical History Cancer: Breast cancer Social History Smoking Status Never smoker Review of Systems Constitutional:: Reports: - - Minimal infrequent hot flashes. Denies: Fever, Sweats, Weight loss, Appetite change, Chills Cardiovascular:: Denies: Chest pain, Palpitations, Dyspnea on exerti on, Orthopnea, PND, Shortness of breath Respiratory: Denies: Cough, Hemoptysis, Shortness of Breath, Wheezing Gastrointestinal:: Denies: Abdominal pain, Nausea, Vomiting, Diarrhea, Constipation, Hematoc hezia Genitourinary: Denies: Dysuria, Hematuria, 15, Flank pain Musculoskeletal:: Reports: Arthritis - No notable change after AI therapy, Arthralgia. Denies: Back pain, Myalgia Skin: Denies: Rash, Skin Changes, Wounds Neurological:: Denies: Headache, Dizziness, Visual changes, Tinnitus, Hearing loss Psychiatric: Denies: Anxiety, Depression, Homicidal Ideations, Suicidal Ideations Vital Signs Height 5 ft 1.6 in Weight: 65.771 kg Weight in Pounds 145.0 lbs Pulse Ox 96 - Physical Exam General: Alert, Oriented x3, No apparent distress HEENT: Atraumatic, PERRLA, EOMI, Normocephalic Oropharynx:: Dry mucosa Neck:: Supple, Trachea midline. Negative for: JVD, bilateral Cardiac:: Regular rate, Regular rhythm, Normal S1, Normal S2. Negative for: Murmur Lungs: Clear to auscultation, Excusion symmetrical . Negative for: Rhonchi, Wheezes Abdomen:: Bowel sounds x 4, Soft, Non-tender, Non-distended. Negative for: Hepatosplenomegaly Extremities:: Negative for: Cyanosis, Edema Neurological: Neuro grossly int act Skin:: Negative for: Lesions, Rash, Petechiae, Ecchymosis Psychiatric:: Appropriate affect, Euthymic Lymphatics:: Negative for: Cervical lymphadenopathy, Supraclavicular lymphadenopathy, Axillary ly mphadenopathy Diagnostic Data: Bone density March 2017: IMPRESSION: The patient is considered osteopenic as outlined according to World Cal Organization (WHO) criteria with a moderate fracture risk . There has been worsening of bone density since the previous examination. Assessment and Plan 1- 66-year-old female with stage Ia (T1c, N0, M0) invasive lobular carcinoma of the right breast grade 2, ER positive, UT positive, HER-2/skylar not overexpressed. Patient is status post mastectomy with sentinel lymph node biopsy January 2017. Adequate negative margin. Oncotype DX score low risk group. Star huong systemic adjuvant hormonal therapy with an aromatase inhibitor for at least 5 years March 2017. Well-tolerated with no notable side effects. 2- progressive bone loss secondary to menopause with keene per added aromatase inhibitor therapy started March 2017. Advise continue vitamin D calcium supplement plus Prolia. Impression and recommendation discussed. Follow-up in 3 months Medications: Prescri ptions This Visit Medication Instructions Recorded Anastrozole [Arimidex] 1 mg PO DAILY #30 tab 03/18/17 Primary Care Provider: Mónica Petty Referring Provider: Angel Shin MD 06/12/17 1136 & amp;#60;Electronically signed by Angel Shin MD> Date Angel Shin MD Cosigner Signature: Date (if applicable) CC: Mónica Petty MD 2-Apr-2017 Surgery Visit Report Result: Comments: See Note; NOTES: [facility] [address] [place] [address] OFFICE VISIT Date of Service: 04/04/17 MR#: [id number] Acct: [id number] Name: PARUL BERMEO Rep #: [id number] : 1950 Provider: Adilson Crawford MD Age/Sex: 66/F Location: [facility] Status: Signed Intake Intake Visit Reasons: 1 M FU Mastectomy 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: N o Is patient in pain?: No Allergies sulfamethoxazole [From Bactrim] Allergy (Verified 04/04/17 13:06) Swelling trimethoprim [From Bactrim] Allergy (Verified 04/04/17 13:06) Swelling Medications Aleja nopril [Zestril] 20 mg PO DAILY 01/26/13 [History Confirmed 04/04/17] Cholecalciferol (Vitamin D3) [Vitamin D3] 5,000 unit PO QHS 02/10/17 [History Confirmed 04/04/17] Fluticasone/Salmeterol [Advair 250 -50 Diskus] 1 ea IH BID 02/10/17 [History Confirmed 04/04/17] Propranolol HCl [Propranolol HCl ER] 60 mg PO DAILY 02/10/17 [History Confirmed 04/04/17] Ranitidine [Zantac] 150 mg PO DAILY PRN PRN [History Confirmed 04/04/17] Rotigotine [Neupro] 1 patch TRANSDERM. DAILY 02/10/17 [History Confirmed 04/04/17] Ubidecarenone/Vitamin E Mixed [Rta69-Fla E 200 mg- 20 Unit Sfg] 1 ea PO DAILY 02/10/17 [ History Confirmed 04/04/17] Breast Prosthesis #1 ea 03/04/17 [Rx Confirmed 04/04/17] Mastectomy Bra #4 ea 03/05/17 [Rx Confirmed 04/04/17] Anastrozole [Arimidex] 1 mg PO DAILY #30 tab 03/18/17 [Rx Confi rmed 04/04/17] PFSH Medical History Ptosis of breast (Chronic) Estrogen receptor positive status [ER+] (Acute) Disproportion of reconstructed breast (Acu te) Acquired absence of right breast and nipple (Acute) Primary cancer of right female breast (Acute) Asthma (Acute) ECHO (Acute) EJECTION FRACTION 60 % PER ECHO 08/11 (Acute) Estrogen receptor positive status (ER+) (Acute) GERD (gastroesophageal reflux disease) (Acute) HEART CATH (Acute) HLD (hyperlipidemia) (Acute) 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) INVASIVE LOBULAR CARCINOMA RIGHT BREAST (Acute) Mitral valve p rolapse (Acute) NUCLEAR STRESS TEST (Acute) Parkinson's disease (Acute) Sinus bradycardia (Acute) HTN (hypertension) (Chronic) Surgical History BREAST BIO PSY X2 IN 1997 (Acute) History of appendectomy (Acute) S/P right mastectomy (Acute) THERMABLATION (Acute) TUBAL LIGATION (Acute) Family History Father Dece ased, AGE 60 CAD (coronary artery disease) Myocardial infarction Mother , AGE 70 Myocardial infarction CAD (coronary artery disease) Diabetes Sister CAD (coronary artery diseas e) Social History Smoking Status: Never smoker alcohol intake: current alcohol intake frequency: other Alcohol type: wine details: PATIENT HAS A RARE GLASS OF WINE substance use type: does not use HPI HPI HPI: PARUL HUNTLEY, is a 66 F who presents to the office today for follow-up. The patient is doing well with no complaints. Exam Chest Other: The patient's right breast incision is c lean dry and intact. The blue dye is fading. There is no sign of infection. Assessment AND Plan Problems 1. Primary cancer of right female breast C50.911 Plan 1. The patient is doing well. She is sti ll debating delayed reconstruction and will see Dr. Gm Yeager if she decides on it. She is doing well with her prosthetic. I will see her back in 1 year to follow-up. Adilson Crawford MD Pager: [facility] [address], [address] [address] Office: Coding Level of Care Code Global Post Op Diagnoses Primary cancer of right f emale breast C50.911 04/04/17 1354 <Electronically signed by Adilson Crawford MD> Date Adilson Crawford MD Cosigner Signature: Date (if applicable) CC: Mónica Petty MD 18-Mar-2017 Dexa Bone Density Study (HP) Result: Comments: See Note; NOTES: [facility] [address] [place] [address] Dexa Bone Density Study (HP) MR#: [id number] Acct: [id number] Name: PARUL HUNTLEY p #: [id number] : 1950 F 66 From: Justice Gerardo MD PCP: Mónica Petty MD Status: REG CLI Study: Dexa Bone Density Study (HP) Date of Exam: 03/18/17 Exam# [id number] Ordering Dr: Skylar Shin MD STUDY: DUAL ENERGY X-RAY ABSORPTIOMETRY / DXA REASON FOR EXAM: Female, 66 years old. The patient is postmenopausal. Loss of height. TECHNIQUE: Bone Mineral Density (BMD) measurements of lum bar spine and bilateral hips were obtained. COMPARISON: Comparison is made with prior study dated August 20, 2011. FINDINGS: Lumbar Spine (L1-L4): g/cm2 (0.895) / T- score (-2.4) / Z-score (-0.8) Findings are suggestive of osteopenia with a moderate fracture risk. Left Femur Total: g/cm2 (0.747) / T-score (-2.1) / Z-score (- 0.8) Left Femoral Neck: g/cm2 (0.750) / T -score (-2.1) / Z-score (10.6) Right Femur Total: g/cm2 (0.766) / T-score (-1.9) / Z-score (-0.7) Right Femoral Neck: g/cm2 (0.75) / T-score (-2.1) / Z-score (- 0.6) The T-Scores on the most recent prio r examination were: Lumbar Spine (L1-L4): There has been improvement of bone density since the previous examination. Left Femur Total: which represents a worsening of 6.0%. Right Femur Total: which re presents a worsening of 3.9%. 0009 HPBD/Dexa Bone Density Study (HP) IMPRESSION: The patient is considered osteopenic as outlined below according to [place] Organization (WHO) criteria with a moderate fracture risk. There has been worsening of bone density since the previous examination. Reference Information : The T-score is the number of standard deviations above or below the standard which is normal for young adults at their peak bone mineral density. The World Health Organization (WHO) interprets the T-s cores as follows: Above -1 Normal bone density Between -1 and -2.5 Osteopenia Equal to / or below -2.5 Osteoporosis As a practical clinical guideline, osteopenia may be graded as follows: Mild -1 thro ugh -1.5 Moderate -1.6 through -2.0 Severe -2.1 through -2.4 The Z-score is the number of standard deviations above or below age-matched controls. A Z-score of less than -1.5 would be considered abnorm al. References: 1. NIH Osteoporosis and Related Bone Diseases http://www.osteo.org 2. International Society for Clinical Densitometry http://www.iscd.org 3. National Osteoporosis Foundation http://www. nof.org Electronically Signed: Justice Gerardo MD at 15:58 EST Tel [phone], Service support , CC: Mónica Petty MD; Angel Shin MD Yarn Tester: Signed 17-Mar-2017 Plastic Surgery Visit Report Result: Comments: See Note; NOTES: [facility] [address] [place] [id number] OFFICE VISIT Date of Service: 02/05/17 MR#: [id number] Acct: [id number] Name: PARUL HUNTLEY Rep #: [id number] : 1950 Provider: Tyler Amezcua MD Age/Sex: 66/F Location: [facility] Status: Signed Intake Vital Signs02/05/17 Height 5 ft 2 in 02/05/17 Weight: 14 5 lb 02/05/17 Body Mass Index (BMI) 26.5 02/05/17 Respiratory Rate 20 Intake Visit Reasons: evaluation breast reconstruction 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: No Is patient in pain?: No Allergies sulfamethoxazol e [From Bactrim] Allergy (Verified 03/13/17 10:05) Swelling trimethoprim [From Bactrim] Allergy (Verified 03/13/17 10:05) Swelling Medications Lisinopril [Zestril] 20 mg PO DAILY 01/26/13 [History Co nfirmed 03/13/17] Cholecalciferol (Vitamin D3) [Vitamin D3] 5,000 unit PO QHS 02/10/17 [History Confirmed 03/13/17] Fluticasone/Salmeterol [Advair 250-50 Diskus] 1 ea IH BID 02/10/17 [History Confirmed 03/13/17] Propranolol HCl [Propranolol HCl ER] 60 mg PO DAILY 02/10/17 [History Confirmed 03/13/17] Ranitidine [Zantac] 150 mg PO DAILY PRN PRN 02/10/17 [History Confirmed 03/13/17] Rotigotine [Neupro] 1 patch TRANSDERM. DAILY 02/10/17 [History Confirmed 03/13/17] Ubidecarenone/Vitamin E Mixed [Qrh15-Nly E 200 mg-20 Unit Sfg] 1 ea PO DAILY 02/10/17 [History Confirmed 03/13/17] Breast Prosthesis #1 ea 03/04/17 [Rx Confirmed 03/04/17] Mastectomy Bra #4 ea 03/05/17 [Rx] PFSH Medical History Ptosis of breast (Chronic) Estrogen receptor positive status [ER+] (Acute) Disproportion of reconstructed jennifer ast (Acute) Acquired absence of right breast and nipple (Acute) Primary cancer of right female breast (Acute) Asthma (Acute) ECHO (Acute) EJECTION FRACTION 60 % PER ECHO 08/11 (Acute) Estrogen receptor positive status (ER+) (Acute) GERD (gastroesophageal reflux disease) (Acute) HEART CATH (Acute) HLD (hyperlipidemia) (Acute) 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) INVASIVE LOBULAR CARCINOMA RIGHT BREAST (Acute) Mitral valve prolapse (Acute) NUCLEAR STRESS TEST (Acute) Parkinson's disease (Acute) Sinus bradycardia (Acute) HTN (hypertension) (Chronic) Surgical History BREAST BIOPSY X2 IN 1997 (Acute) History of jim endectomy (Acute) S/P right mastectomy (Acute) THERMABLATION (Acute) TUBAL LIGATION (Acute) Family History Father , AGE 60 CAD (coronary artery disease) Myocardial infarction Mother D eceased, AGE 70 Myocardial infarction CAD (coronary artery disease) Diabetes Sister CAD (coronary artery disease) Social History Smoking Status: Never smoker alcohol intake: current alcohol intake frequency: other Alcohol type: wine details: PATIENT HAS A RARE GLASS OF WINE substance use type: does not use HPI evaluation breast reconstruction: Details: 66-year-old woman presents wit h recent diagnosis of right breast cancer from a biopsy done on January 15, 2017. The biopsy results showed invasive lobular carcinoma, grade 2. Estrogen receptors were positive. Progesterone receptors were positive. Mvl6lvh was negative. She comes in today to discuss her breast reconstruction options. At the present time she has some minor discomfort in the area of the biopsy site. She had an MRI do ne of the breast on January 13, 2017. The left breast was okay. The right breast showed this suspicious mass that was biopsied. She just wants to address the breast cancer on the right breast at this t jaclyn. She is not interested in a prophylactic mastectomy on the left side at this time. I initially saw her on January 20, 2017 to discuss breast reconstruction options. Patient is worried at this time about her Parkinson's disease and wants to do the least amount at this time. So at this time she is leaning toward just the mastectomy. If there are no healing problems and her Parkinson's disease is no t worsened because of the surgery, then she would consider delayed breast reconstruction in the future. PAST MEDICAL HISTORY: Past Medical Illness: Asthma, HTN,GERD, HLD, Parkinson's Past Cardiac Illne ss: Mitral Valve prolapse,sinus bradycardia invasive lobular carcinoma right breast estrogen receptor status positive Cardiology Procedures (invasive): heart cath 01/13 Cardiology Procedures (non-invasi ve): nuclear stress test 05/12, echo 08/11, holter monitor 02/07/2016. Ejection Fraction: 60% per echo 08/11 PAST SURGICAL HISTORY: Appendectomy Tubal Ligation Breast biopsy x2 in 1997 Thermablation FAMI LY HISTORY: negative for breast cancer. Father: age [address], hx CAD Mother: age 70 [address], hx CAD and diabetes SOCIAL HISTORY: Patient has never smoked. Alcohol Use - yes Rarely Drug Use - no MEDICATIONS: CO Q-10 200 MG ORAL CAPSULE (COENZYME Q10) One tablet by mouth daily TAURINE CAPSULE (TAURINE CAPS) One tablet by mouth daily NALTREXONE HCL TABLET (NALTREXONE HCL TABS) 4.5mg daily DULER A 100-5 MCG/ACT INHALATION AEROSOL (MOMETASONE FURO-FORMOTEROL FUM) as directed MACROBID 100 MG ORAL CAPSULE (NITROFURANTOIN MONOHYD MACRO) postcoital VITAMIN D TABLET (CHOLECALCIFEROL TABS) 5000u daily LISINOPRIL 20 MG ORAL TABLET (LISINOPRIL) One tablet by mouth daily ALLERGIES: * BACTRIM (Severe) REVIEW OF SYSTEMS General-denies fever, weight loss. Has some fatigue. Eyes-denies cataracts. Denies glaucoma. Ear nose and throat-denies nasal congestion sore throat. Skin -no suspicious lesions noted. Denies skin cancer. Musculoskeletal-denies joint pain, joint stiffness, weakness of muscles and join ts, back pain, arthritis. Cardiovascular-has some fatigue. Denies shortness of breath. Denies chest pain. Psych-denies anxiety. Denies depression. Respiratory denies cough and shortness of breath. Has s ome asthma. Gastrointestinal-denies nausea, vomiting, diarrhea, and constipation. Hematologic-denies bleeding and abnormal bruising. Neuro-denies headaches. Endocrine-denies excessive thirst or urinatio n. Genitourinary-denies hematuria and urinary frequency. PHYSICAL EXAMINATION General-well developed, well nourished, in no acute distress. Her bra size is 38B. HEENT-pupils equal round and reactive to light. Extraocular muscles intact. Throat is clear. Neck-supple and nontender. No cervical adenopathy. Breasts-breasts are soft and symmetrical. There is minor bruising on the right breast where the bi opsy site was located. No hematoma noted. Distance from the midclavicular line on the left to the nipple is 23 cm up from the nipple to the inframammary fold is 8 cm. The distance from the midclavicular line on the right to the nipple is 23 cm in from the nipple to the inframammary fold is 8 cm. Nipple areolar complex diameter bilaterally is 5 cm. There is slight stage II ptosis present where the nipp le is located below the inframammary fold. No axillary adenopathy noted. The width of the breasts are 14 cm bilaterally. Lungs-clear to auscultation. Heart- regular rate and rhythm. Abdomen-soft and nond istended. No masses. No ventral hernias noted. His right lower quadrant scar noted. There is some redundant skin and subcutaneous tissue between the umbilicus and the pubic area. Good skin elasticity is noted. Extremities-full range of motion. No axillary adenopathy. No inguinal adenopathy. Radial pulses are palpable. Dorsalis pedis pulses are palpable. Back-no bony tenderness. Neuro--cranial nerves I I through XII grossly intact. Psych-normal mood and affect. ASSESSMENT 1. Right breast cancer. 2. Planned acquired absence of right breast. 3. Planned disproportion reconstructed right breast. 4. Estro gen receptor positive status 5. Breast ptosis. PLAN Patient's biggest concern is the effects of any complex extended surgery on her Parkinson's disease. At this time she just wants to proceed with the mastectomy. She does not want any prophylactic mastectomy on the other side. If she has no problems with healing after her mastectomy surgery and her Parkinson's disease is not worsened by the surgery, then she would consider discussing delayed breast reconstruction in the future. So Dr. Crawford will proceed with the mastectomy sometime in the next couple of weeks. Discussed the various delayed jennifer ast reconstruction options that are available. The 2 main types of reconstruction are using an funeral service practitioner/embalmer and/or implant or using autogenous tissue such as the abdominal tissue or the back tissue. The ot er option would be a combination of both. After the reconstruction is done on the right side, then we would address the left side for symmetry purposes. Since there is a little bit of ptosis, she would benefit from a breast lift. Depending on how large the size of the right breast reconstruction is, a small cohesive gel implant may be necessary as well on the left side. And if she decides on being a l ittle smaller, then a small breast reduction can be done as well on the left side. After the creation of the breast mound, we can then discuss nipple reconstruction at a later date if interested. This r anges from creation of a nipple flap which gives us the nipple projection versus placement of a skin graft for the areola and possibly adding intradermal tattooing to help with color match. The patient was informed of the risks and complications of the procedure including alternatives to surgery. These were discussed with the patient personally. The patient voices understanding and wishes to proceed with the mastectomy only and wants to wait on reconstruction in a delayed fashion in order to see if her Parkinson's remains stable after the stress of the mastectomy surgery. She will call my office at a later date when she wants to discuss her breast reconstruction options further at that time. Assessment AND Plan Problems 1. Primary cancer of right female breast C50.911 2. Acquired absence of ri ght breast and nipple Z90.11 3. Disproportion of reconstructed breast N65.1 4. Estrogen receptor positive status [ER+] Z17.0 5. Ptosis of breast N64.81 03/17/17 1532 <Electronically signed by Tyler Amezcua MD> Date Tyler Amezcua MD Cosigner Signature: Date (if applicable) CC: Adilson Crawford MD; Mónica Petty MD 13-Mar-2017 History and Physical Exam Result: Comments: See Note; NOTES: [facility] Medical Records Department [address] [place] [address] History and Physical 03/13/17 1056 MR#: [id number] Acct: [id number] Name: Roe HUNTLEY Rep #: [id number] : 1950 66 From: Angel Shin MD PCP: Mónica Petty MD Status: REG RCR Y Location: [facility] (1) Primary cancer of right female breast Status: Acute Subjective Date of Service:: 03/13/17 Chief Complaint: Breast cancer, new diagnosis History of Present Illness: Patient is a 66-year-old female who has been compliant with screening mammography who in the late summer early fall 2016 felt a painless lump in the right breast. She waited until her screening mammogram in December 2016 which confirmed an abnormality that on biopsy was found to be an invasive lobular carci noma in January 2017. On February 12, 2017 she underwent a right breast mastectomy and sentinel lymph node biopsy that revealed an invasive lobular cancer measuring 2 cm in maximum diameter with an ov er old grade 2 (score 7) with no evidence of metastatic cancer in 1 identified sentinel lymph node. The cancer was in a single focus margins were -1.8 cm no lymphovascular invasion. Tumor is ER positive (95%) UT positive (40%) (and HER-2 not overexpressed. Patient made an uneventful recovery from her surgery. Oncotype DX testing showed her to be at low risk group with a score of 13. Her past medical history is notable for Parkinson's disease, hypertension and vitamin D deficiency state. No family history of breast cancer Power of Trial Court Judge: Yes Living Will: Yes Health History: Cancer History Can er: Breast cancer Social History Smoking Status Never smoker Allergies/Adverse Reactions: Allergy/AdvReac Type Severity Reaction Status Date / Time Home Medications Medication Instructions Stephen rded Lisinopril [Zestril] 20 mg PO DAILY 01/26/13 Cholecalciferol (Vitamin D3) 5,000 unit PO QHS 02/10/17 [Vitamin D3] Fluticasone/Salmeterol [Advair 1 ea IH BID 02/10/17 Risk Factors Tobacco Risk Da ta: Tobacco Risk Smoking Status Never smoker Type of tobacco: Smokeless tobacco usage: Items/Day: Year started: Years used: Counseled to quit/cut down: Reason for no counseling performed: Reason for n o pharmacotherapy: Tobacco use comments: Passive smoke exposure: Substance Risk Drug use: Caffeine use [drinks/day]: Alcohol use: Type of alcohol: Drinks per day: Has patient felt the need to cut do wn: Has the patient been annoyed by complaints: Has the patient felt guilty about drinking: Has the patient needed an eye shrinker in the mornings: Comments: Date of last mammogram:: 12/26/16 Review of Systems Constitutional:: Denies: Fever, Sweats, Weight loss, Appetite change, Chills Cardiovascular:: Denies: Chest pain, Palpitations, Dyspnea on exertion, Orthopnea, PND, Shortness of breath Respirat ory: Denies: Cough, Hemoptysis, Shortness of Breath, Wheezing Gastrointestinal:: Denies: Abdominal pain, Nausea, Vomiting, Diarrhea, Constipation, Hematochezia Genitourinary: Denies: Dysuria, Hematuria, 15, Flank pain Musculoskeletal:: Denies: Back pain, Myalgia, Arthralgia Skin: Denies: Rash, Skin Changes, Wounds Neurological:: Reports: Tremors, - - She suffers from Parkinson's which limits her activ ities. Denies: Headache, Dizziness, Visual changes, Tinnitus, Hearing loss Psychiatric: Denies: Anxiety, Depression, Homicidal Ideations, Suicidal Ideations Comment: Chest wound healed with no complicat ions Vital Signs Height 5 ft 1.61 in Weight: 65.317 kg Weight in Pounds 144.0 lbs Pulse Ox 97 - Physical Exam General: Alert, Oriented x3, No apparent distress, - - Parkinsonian ECOG 2 HEENT: Atra umatic, PERRLA, EOMI, Normocephalic Oropharynx:: Dry mucosa Neck:: Supple, Trachea midline. Negative for: JVD, bilateral Cardiac:: Regular rate, Regular rhythm, Normal S1, Normal S2. Negative for: Murmu r Lungs: Clear to auscultation, Excusion symmetrical. Negative for: Rhonchi, Wheezes Abdomen:: Bowel sounds x 4, Soft, Non-tender, Non-distended. Negative for: Hepatosplenomegaly Extremities:: Negative for: Cyanosis, Edema Neurological: - - Consistent with Parkinson's slow movement and tremor no lateralization Skin:: Negative for: Lesions, Rash, Petechiae, Ecchymosis Psychiatric:: Appropriate affect, Euthymic Lymphatics:: Negative for: Cervical lymphadenopathy, Supraclavicular lymphadenopathy, Axillary lymphadenopathy Breast:: - - Left breast no masses. Right mastectomy scar healed well Assessment and Plan 66-year-old female with stage Ia (T1c, N0, M0) invasive lobular carcinoma of the right breast grade 2, ER positive, UT positive, HER-2/skylar not overexpressed. Patient is status post mastectomy with sentinel lymph node biopsy January 2017. Adequate negative margin. Oncotype DX score low risk group. I reviewed the most recent NCCN guidelines and advice systemic adjuvant hormonal therapy with an aromatase inhibitor for at least 5 years. The added benefit from systemic chemotherapy is small and being in the low risk group is not warranted. Adjuvant radiation therapy is not indicated. Genetic testing is not indicated. Patient was seen was her and [id number]. Impression and recommendation discussed. The rationale behind aromatase inhibitor therapy and the main side effects discu ssed. A formal teaching session about antiestrogen therapy will be scheduled with nurse practitioner. Baseline CBC, CMP, and bone density (patient reported never had one) will be scheduled. Follow-up i n 3 months Primary Care Provider: Mónica Petty Referring Provider: Angel Shin MD 03/13/17 1110 <Electronically signed by Angel Shin MD> Date Angel Shin MD Cosigner Signature: Date (if applicable) CC: Adilson Crawford MD; Mónica Petty MD; Angel Shin MD Signed 05-Mar-2017 Surgery Visit Report Result: Comments: See Note; NOTES: [facility] [address] [place] [address] OFFICE VISIT Date of Service: 03/04/17 MR#: [id number] Acct: [id number] Name: PARUL BERMEO Rep #: [id number] : 1950 Provider: Adilson Crawford MD Age/Sex: 66/F Location: [facility] Status: Signed Intake Intake Visit Reasons: 2 week f/u mastectomy Hardwood Finisher Require d: No Is patient in pain?: No Allergies sulfamethoxazole [From Bactrim] Allergy (Verified 03/04/17 13:09) Swelling trimethoprim [From Bactrim] Allergy (Verified 03/04/17 13:09) Swelling Medications Lisinopril [Zestril] 20 mg PO DAILY 01/26/13 [History Confirmed 03/04/17] Cholecalciferol (Vitamin D3) [Vitamin D3] 5,000 unit PO QHS 02/10/17 [History Confirmed 03/04/17] Fluticasone/Salmeterol [Advair 250-50 Diskus] 1 ea IH BID 02/10/17 [History Confirmed 03/04/17] Propranolol HCl [Propranolol HCl ER] 60 mg PO DAILY 02/10/17 [History Confirmed 03/04/17] Ranitidine [Zantac] 150 mg PO DAILY PRN PRN [History Confirmed 03/04/17] Rotigotine [Neupro] 1 patch TRANSDERM. DAILY 02/10/17 [History Confirmed 03/04/17] Ubidecarenone/Vitamin E Mixed [Ikj65-Ufm E 200 mg-20 Unit Sfg] 1 ea PO DAILY [History Confirmed 03/04/17] Oxycodone HCl/Acetaminophen [Percocet 5/325] 1 - 2 tab PO Q4H PRN PRN #40 tab 02/13/17 [Rx Confirmed 03/04/17] Breast Prosthesis #1 ea 03/04/17 [Rx Confirmed 03/04/17] Ma stectomy Bra #4 ea 03/05/17 [Rx] PFSH Medical History Breast cancer, right (Acute) Asthma (Chronic) Benign essential hypertension (Chronic) Asthma (Acute ) ECHO (Acute) EJECTION FRACTION 60 % PER ECHO 08/11 (Acute) Estrogen receptor positive status (ER+) (Acute) GERD (gastroesophageal reflux disease) (Acute) HEART CATH (Acute) HLD (hyperlipidemia) (Acute ) 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) INVASIVE LOBULAR CARCINOMA RIGHT BREAST (Acute) Mitral valve prolapse (Acute) NUCLEAR STRESS TEST (Acute) Parkinson's disease (Acute) Sinus bradycardia (Acute) HTN (hypertension ) (Chronic) Surgical History BREAST BIOPSY X2 IN 1997 (Acute) History of appendectomy (Acute) S/P right mastectomy (Acute) THERMABLATION (Acute) TUBAL LIG ATION (Acute) Family History Father , AGE 60 CAD (coronary artery disease) Myocardial infarction Mother , AGE 70 Myocardi al infarction CAD (coronary artery disease) Diabetes Sister CAD (coronary artery disease) Social History Smoking Status: Never smoker alcohol intake: current alcohol intake frequency: other Alcohol t ype: wine details: PATIENT HAS A RARE GLASS OF WINE substance use type: does not use HPI HPI HPI: PARUL HUNTLEY, is a 66 F who presents to the office today for follow-up after right mastectom y. The patient is doing well with no pain. She reports no swelling or issues. ROS General Additional Details: Patient has no complaints and says her wound is healing well. Exam Chest Other: The pat ient's right breast area is healing. The upper area which was firm is now softened. She is still having some area of firmness inferior at the inframammary crease. Her incision is still stained blue from the methylene blue but there is no sign of ecchymosis or erythema. Assessment AND Plan Problems 1. Malignant neoplasm of central portion of right breast in female, estrogen receptor positive C50.111 Plan 1. Patient is doing well after her right mastectomy. Pathology results showed clean margins with no signs of spread. Lymph node was negative for malignancy. 2. I have ordered Oncotype DX for her pathology. The patient is following up with oncology next week. 3. I will see her back in 1 month to ensure that the swelling has decreased and the blue dye has disappeared. I did warn her there was a chance that the blue dye would permanently tattooed the skin but I am hoping this will dissipate Adilson Crawford MD Pager: [facility] [address], [address] [place] [address] Office: Medications New: 03/05/17 0903 <Electronically signed by Adilson Crawford MD> Date Adilson Crawford MD Cosigner Signature: Date (if applicable) CC: Mónica Petty MD; Angel Shin MD 13-Feb-2017 Discharge Summary Result: Comments: See Note; NOTES: [facility] Medical Records Department [address] [place] [address] Discharge Summary 02/13/17 08 MR#: [id number] Acct: [id number] Name: NEYMAR HUNTLEY Rep #: [id number] : 1950 66 From: Adilson Crawford MD PCP: Mónica Petty MD Status: REG [facility] Y Location: [place] [address] Discharge Date and Diagnosis - Problem List Patient Problems: Ac tive and Suspected Problems (Last Updated 02/03/17 @ 13:46 by Moni Brewster) Breast cancer, right (Acute) Date of Admission: 02/12/17 Date of Discharge: 02/13/17 - Primary Discharge Diagnosis Active and Suspected Problems (Last Updated 02/03/17 @ 13:46 by Moni Brewster) Breast cancer, right (Acute) - Secondary Discharge Diagnosis Chronic Problems (Last Updated 02/03/17 @ 13:46 by Moni Brewster) Asthma (Chronic) Benign essential hypertension (Chronic) Hospital Course and Treatment Imaging Results: Clinical Impression(s) from Imaging Studies [place] Node 02/12/17 11:00 IMPRESSION: Injectio n of 1.1 mCi of technetium level sulfur colloid for sentinel node imaging. Electronically Signed: Justice Gerardo MD at 12:38 EST Tel [phone], Service support , Fax Operations: - - Right simple mastectomy and sentinel lymph node biopsy Procedures: None Summary of Care Provided: The patient is a 66 year old F with invasive right lobular carcinoma of th e breast. The patient underwent a right simple mastectomy with sentinel lymph node biopsy was admitted to the floor postoperatively. Once she was tolerating a diet and her pain was controlled well with p.o. medications she was discharged home in stable condition with a drain. Discharge Diet: No Restrictions Discharge Activity: May Not Drive - for 2-3 days or while taking narcotic pain meds., May Show er May shower in (days): 1 Call your doctor if your incision/area has: Continuous Slow Oozing, Sudden Increased Bleeding, Increased Pain/ Swelling, Increased Redness, Swelling at the incision site Call your doctor if you observe: Fever of 101 or Higher Suture Line Care: Avoid Pulling/Pushing, Avoid Pinching/Bending Change Dressing in (Days):: 1 - Keep ana laura wrapped for next 3 days, may remove to shower Cleanse incision/area with: Soap AND Water Drain: Suction Additional Dressing/Incision Instructions:: Remove ana laura wrap to shower then rewrap Home Medications: Medications to take at Discharge Lisinopril [Zestril] 20 mg PO DAILY 01/26/13 Cholecalciferol (Vitamin D3) [Vitamin D3] 5,000 unit PO QHS 02/10/17 Fluticasone/Salmeterol [Advair 250-50 Diskus] 1 each IH BID 02/10/17 Propranolol HCl [Propranolol HCl ER] 60 mg PO DAILY 02/10/17 Ranitidine [Zantac] 150 mg PO DAILY PRN PRN 02/10/17 Rotigotine [Neupro] 1 patch TRANSDERM. DAILY 02/10/17 Ubidecarenone/Vitamin E Mixed [Lol77-Mbz E 200 mg-20 Unit Sfg] 1 each PO DAILY 02/10/17 Oxycodone HCl/Acetaminophen [Percocet 5/325] 1 - 2 tablet PO Q4H PRN PRN #40 tablet 02/13/17 Following Prescrptions Were Given to Patient: Oxycodone HCl/Acetaminophen [Percoce t 5/325] 1 - 2 tablet PO Q4H PRN PRN #40 tablet PRN Reason: Pain Primary Care Physician: Mónica Petty MD [Primary Care Provider] - Please Follow Up With: Adilson Crawford MD When: call today to make appt mon or [phone] Meaningful Use Info Meaningful Use Diagnoses (Choose all that apply): None applicable 02/13/17805 <Electronically signed by Adilson Crawford MD> Date Adilson Crawford MD Cosigner Signature (if applicable): Date CC: Adilson Crawford MD; Mónica Petty MD Signed 13-Feb-2017 Discharge Summary Result: Comments: See Note; NOTES: [facility] Medical Records Department [address] [place] [address] Discharge Summary 02/13/17 0753 MR#: [id number] Acct: [id number] Name: NEYMAR HUNTLEY Rep #: [id number] : 1950 66 From: Adilson Crawford MD PCP: Mónica Petty MD Status: REG [facility] Location: [place] [address] Discharge Date and Diagnosis - Problem List Patient Problems: Ac tive and Suspected Problems (Last Updated 02/03/17 @ 13:46 by Moni Brewster) Breast cancer, right (Acute) Date of Admission: 02/12/17 Date of Discharge: 02/13/17 - Primary Discharge Diagnosis Active and Suspected Problems (Last Updated 02/03/17 @ 13:46 by Moni Brewster) Breast cancer, right (Acute) - Secondary Discharge Diagnosis Chronic Problems (Last Updated 02/03/17 @ 13:46 by Moni Brewster) Asthma (Chronic) Benign essential hypertension (Chronic) Hospital Course and Treatment Operations: - - Right simple mastectomy and sentinel lymph node biopsy Procedures: None Summary of Care Provided : The patient is a 66 year old F with right invasive lobular carcinoma. She underwent a right simple mastectomy with sentinel lymph node biopsy. She was admitted and started on a diet. Once her pain wa s controlled well with p.o. pain medications and she is tolerating a diet she was discharged home in stable condition the following day with a drain in place. Home Medications: Medications to take at D ischarge Lisinopril [Zestril] 20 mg PO DAILY 01/26/13 Cholecalciferol (Vitamin D3) [Vitamin D3] 5,000 unit PO QHS 02/10/17 Fluticasone/Salmeterol [Advair 250- 50 Diskus] 1 each IH BID 02/10/17 Propranol ol HCl [Propranolol HCl ER] 60 mg PO DAILY 02/10/17 Ranitidine [Zantac] 150 mg PO DAILY PRN PRN 02/10/17 Rotigotine [Neupro] 1 patch TRANSDERM. DAILY 02/10/17 Ubidecarenone/Vitamin E Mixed [Gaz45-Mro E 200 mg-20 Unit Sfg] 1 each PO DAILY 02/10/17 Oxycodone HCl/Acetaminophen [Percocet 5/325] 1 - 2 tablet PO Q4H PRN PRN #40 tablet 02/13/17 Following Prescrptions Were Given to Patient: Oxycodone HCl/Ac etaminophen [Percocet 5/325] 1 - 2 tablet PO Q4H PRN PRN #40 tablet PRN Reason: Pain Primary Care Physician: Mónica Petty MD [Primary Care Provider] - Meaningful Use Info Meaningful Use Diagnoses (Cho ose all that apply): None applicable 02/13/17 08 <Electronically signed by Adilson Crawford MD> Date Adilson Crawford MD Cosig ner Signature (if applicable): Date CC: Adilson Crawford MD; Mónica Petty MD Signed 13-Feb-2017 Discharge Instruction Result: Comments: See Note; NOTES: [facility] Medical Records Department [address] [place] [address] Instructions for Home/Discharge Instructions 02/13/17 0756 MR#: [id number] Acct: [id number] Name: PARUL HUNTLEY Rep #: [id number] : 1950 66 From: Adilson Crawford MD PCP: Mónica Petty MD Status: REG [facility] Discharge Diet: No Restrictions Discharge Activity: May Not Dri ve - for 2-3 days or while taking narcotic pain meds., May Shower May shower in (days): 1 Lifting Restrictions: 10 pounds for 1 week. Call your doctor if your incision/area has: Continuous Slow Oozing, Sudden Increased Bleeding, Increased Pain/ Swelling, Increased Redness, Swelling at the incision site Call your doctor if you observe: Fever of 101 or Higher Suture Line Care: Avoid Pulling/Pushing, Lit id Pinching/Bending Change Dressing in (Days):: 1 - Keep ana laura wrapped for next 3 days, may remove to shower Cleanse incision/area with: Soap AND Water Drain: Suction Additional Dressing/Incision Instruct ions:: Remove ana alura wrap to shower then rewrap Allergies/Adverse Reactions: Allergies sulfamethoxazole [From Bactrim] Allergy (Verified 02/10/17 15:50) Swelling trimethoprim [From Bactrim] Allergy (Verif ied 02/10/17 15:50) Swelling Medications to take at Discharge Lisinopril [Zestril] 20 mg PO DAILY 01/26/13 Cholecalciferol (Vitamin D3) [Vitamin D3] 5,000 unit PO QHS 02/10/17 Fluticasone/Salmeterol [Advair 250-50 Diskus] 1 each IH BID 02/10/17 Propranolol HCl [Propranolol HCl ER] 60 mg PO DAILY 02/10/17 Ranitidine [Zantac] 150 mg PO DAILY PRN PRN 02/10/17 Rotigotine [Neupro] 1 patch TRANSDERM. LAUREANO LY 02/10/17 Ubidecarenone/Vitamin E Mixed [Uod16-Lde E 200 mg-20 Unit Sfg] 1 each PO DAILY 02/10/17 Oxycodone HCl/Acetaminophen [Percocet 5/325] 1 - 2 tablet PO Q4H PRN PRN #40 tablet 02/13/17 The fol lowing prescriptions were given: Oxycodone HCl/Acetaminophen [Percocet 5/325] 1 - 2 tablet PO Q4H PRN PRN #40 tablet PRN Reason: Pain Primary Care Physician: Mónica Petty MD [Primary Care Provider] - Antonio cardoza Follow Up With: Adilson Crawford MD When: call today to make appt mon or [phone] 02/13/17 2282 <Electronically signed by Adilson Crawford MD> Date _ Adilson Crawford MD CC: Mónica Petty MD 12-Feb-2017 Operative Report Result: Comments: See Note; NOTES: [facility] Medical Records Department [address] [place] [address] Operative Report 02/12/17 1709 MR#: [id number] Acct: [id number] Name: SCOTT HUNTLEY Rep #: [id number] : 1950 66 From: Adilson Crawford MD PCP: Mónica Petty MD Status: REG [facility] Location: [place] [address] Problem List (1) Breast cancer, right Status: Acute Qualifiers: [address] st location: central portion of breast Estrogen receptor status: positive Patient sex: female Qualified Code(s): C50.111 - Malignant neoplasm of central portion of right female breast; Z17.0 - Estrogen receptor positive status [ER+]; Z17.0 - Estrogen receptor positive status [ER+] Report of Operation Date of Procedure: 02/12/17 Pre-Operative Diagnosis: Right breast invasive lobular carcinoma central portion Post-Operative Diagnosis: Same Surgery/Procedure Performed:: Right simple mastectomy with right sentinel lymph node biopsy and injection of blue dye and use of neoprobe Description of Surgical F indings:: The patient had one blue lymph node which was sent for pathology and was negative. The neoprobe count on this lymph node was 261 and a bed count after removal of this lymph node and not reach over 12. There were also no other blue nodes or palpable lymph nodes in the axilla. Specimen's removed: Right breast, long suture lateral short suture superior Drains: MARIO to bulb suction Description of Procedure: The patient was brought back to the operating room and general anesthesia was induced. Methylene blue dye was injected into 4 areas under the nipple. The breast was then massaged for 5 jacek shilo. The right breast and axilla were prepped and draped in usual sterile fashion. An elliptical incision was marked with a pen allowing for the superior lateral portion of the incision to be near the a xilla. Next the incision was made with a 10 blade scalpel and hemostasis was gained with electrocautery. Next using electrocautery a flap was made into the axilla and a blue lymphatic was identified. Sh gail dissection was used to follow the lymphatic to the lymph node. The lymph node was dissected free and clipped from its surrounding tissue. A neoprobe count was done of this lymph node and it was hot. A 10 second count showed a count of 261 and the probe was used back in the axilla and no tissue was over 10% of this. I was not able to see any other blue lymphatics or nodes in the axilla and I was un able to palpate any pathologic appearing lymph nodes. Attention was then paid to the mastectomy portion of the procedure. Superior flaps were made to the level just inferior to the clavicle. This was a lso brought medially to the sternum. Next inferiorly the flap was brought to the inferior mammary crease. The skin flaps were then dissected downward to the fascia of the pectoral. The breast and pector al fascia were then removed in a medial to lateral fashion with electrocautery. Once the breast was removed it was marked with a long stitch laterally and a short stitch superiorly and sent for patholog y. Next the pectoral and flaps were irrigated as was the axilla. Hemostasis was gained in the pectoral and flap area with hemostasis. There was good hemostasis in the axillary region with no oozing. Nex t a devorah was made in the inferior lateral skin and hemostat was used to bring a 15 Telugu round drain into the inferior flap. The drain was placed over the pectoral muscle and Indigo powdered was spraye d onto the pectoral muscle. Next interrupted 3-0 Vicryl sutures were used to reapproximate the dermal layer of the incision. The flaps laid very flat with no extra skin laxity. Next Marcaine was injecte d into the incision site and a running 4-0 Monocryl suture was used to close the incision. Histocryl glue was then applied on the incision. The drain was placed to bulb suction and once the glue was dri ed fluffy gauze as well as an Ana Laura wrap was applied to the incision. The patient tolerated the procedure well and was taken to PACU in stable condition. - Admit VTE Documentation VTE Mechan Device Proph ylaxis: SCD's 02/12/17 5874 <Electronically signed by Adilson Crawford MD> Date Adilson Crawford MD CC: Adilson Crawford MD; Mónica Petty MD Signed 12-Feb-2017 Lymph Node Injection Only Result: Comments: See Note; NOTES: [facility] Imaging Services [address] [place] [address] Lymph Node Injection Only MR#: [id number] Acct: [id number] Name: PARUL HUNTLEY Rep # : [id number] : 1950 F 66 From: Justice Gerardo MD PCP: Mónica Petty MD Status: [facility] Study: Lymph Node Injection Only Date of Exam: 02/12/17 Exam# [id number] Ordering Dr: Patti Crawford MD PROCEDURE: NUCLEAR MEDICINE Injection [place] Node - RIGHT breast(s). REASON FOR EXAM: Female, 66 years old. Right breast cancer. TECHNIQUE: [place] node localization using radionuclide metho ds of the RIGHT breast(s) was performed following subcutaneous administration of 1.1 mCi of of sulfur colloid Tc-99m. FINDINGS: 1.1 mCi of technetium labeled sulfur colloid was injected in the inner lower quadrant of the right breast for sentinel node imaging. NM/Lymph Node Injection Only IMPRESSION: Injecti on of 1.1 mCi of technetium level sulfur colloid for sentinel node imaging. Electronically Signed: Justice Gerardo MD at 12:38 EST Tel [phone], Service support , Fax CC: Adilson Crawford MD; Mónica Petty MD Yarn Tester: Signed 03-Feb-2017 PET/CT Tumor Base -Thigh Init Result: Comments: See Note; NOTES: [facility] Imaging Services [address] [place] [address] PET/CT Tumor Base -Thigh Init MR#: [id number] Acct: [id number] Name: PARUL HUNTLEY ep #: [id number] : 1950 F 66 From: Richard Pino DO PCP: Mónica Petty MD Status: REG CLI Study: PET/CT Tumor Base -Thigh Init Date of Exam: 02/03/17 Exam# [id number] Ordering Dr: Chris Crawford MD EXAMINATION: FDG PET-CT INDICATIONS: A 66-year-old female with history of carcinoma of the breast presenting for initial staging examination. COMPARISON EXAMINATION: None available INDEX LE ELLIS SIZE SUV INTERPRETATION Right breast 15.8-mm (frame 156) 1.3 Most consistent with site of histologically confirmed primary breast malignancy TECHNIQUE: Following the intravenous administration of 13.82 mCi of F-18 deoxyglucose via the left forearm, multiplanar image acquisitions of the neck, chest, abdomen and pelvis to level of mid thigh, obtained at one hour post radiopharmaceutical administra tion contemporaneously interpreted with the current CT of the neck, chest, abdomen and pelvis, to level of mid thigh, dated 02/03/17 via coregistration reveals: Blood glucose level:?? 90 mg/dl?H eight:?62 inches?Weight: 140 pounds FINDINGS: 1. A single nodular focus of increased glucose metabolism is demonstrated in the right breast generating a corrected maximum calculated standard uptake value of 1.3. The maximal axial diameter of the corresponding hypermetabolic soft tissue density on review of CT of the thorax dated 02/03/17 is 15.8-mm (transverse). 2. Normal physiologic distr ibution of the radiopharmaceutical is apparent in the hepatic (2.8) and splenic parenchyma, both renal units, bladder and visualized intestinal tract. The visualized portion of the cerebral cortex demon strate symmetric and preserved glucose metabolism. Diffuse radiopharmaceutical concentration is noted in all four quadrants of the abdomen and pelvis. Prominent glucose metabolism is defined in the desc ending thoracic aorta. Pertinent CT findings are as follows: CHEST: Right-left axillary soft tissue densities with fatty hilus formation are non-glucose avid. There is atherosclerotic calcification def ined in the thoracic aorta without evidence of dilatation-aneurysm formation. There are no parenchymal densities-nodules demonstrated in the right-left hemithorax manifesting quantitatively significant increased glucose metabolism. ABDOMEN AND PELVIS: Calcifications are noted in the bilateral lower hemipelvis in proximity to adnexal regions without evidence of increased glucose metabolism. Subcentimet er bilateral inguinal soft tissue densities are ametabolic. Colonic diverticulosis is demonstrated. SKELETAL: Degenerative changes are noted in the cervical, thoracic and lumbar spine. 001 PET/PET/CT Tumor Base -Thigh Init IMPRESSION: 1. 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 2. Prominent glucose concentration observed in the descending thoracic aorta is commensurate with activated leukocytes associated with atherosclerotic plaque formation. (Daniella, C linical Nuclear Medicine 29:93, 2004). 3. There is no definitive quantitatively significant evidence of distant metastatic disease. Electronic Signature Richard Pino D.O. Electronically Signed: Manpreet Pino DO at 13:20 EST Tel , Service support , CC: Adilson Crawford MD; Mónica Petty MD Yarn Tester: Signed 13-Jan-2017 Breast w/o and/or W Cont Bilat Result: Comments: See Note; NOTES: [facility] Imaging Services [address] [place] [address] Breast w/o and/or W Cont Bilat MR#: [id number] Acct: [id number] Name: PARUL HUNTLEY Rep #: [id number] : 1950 F 66 From: Joanne Hagen MD PCP: Mónica Petty MD Status: REG CLI Study: Breast w/o and/or W Cont Bilat Date of Exam: 01/13/17 Exam# [id number] Ordering Dr: Chris Crawford MD STUDY: BILATERAL BREAST MR WITHOUT AND WITH CONTRAST REASON FOR EXAM: Female, 66 years old. Right breast mass. History of 2 previous biopsies, benign. History of fatty tumor removed from axil la. TECHNIQUE: Multi-sequence multi-echo imaging of both breasts was performed with a dedicated breast coil. T1-weighted and T2-weighted images were performed before the administration of contrast. T1- weighted images were also performed after the administration of 7 mL of Gadavist contrast intravenously without complications. COMPARISON: Bilateral mammograms and right breast ultrasound dated December 26, 2016. FINDINGS: RIGHT BREAST: The breast tissue is fatty with minimal background enhancement. There is an irregular enhancing mass at the 3:00 position of th e right breast measuring 2 cm x 1.9 cm x 1.3 cm. This corresponds to the ultrasonographic abnormality and is highly suspicious for breast carcinoma. As indicated in the ultrasound report, an ultrasound -guided biopsy for histologic confirmation is recommended. LEFT BREAST: The breast tissue is fatty with minimal background enhancement. There are no abnormal enhancing masses or areas of non-mass enh ancement in the left breast. There are no enlarged or abnormal lymph nodes. There is no abnormality in the visualized regions of the chest or liver. 0002 MRI/Breast w/o and/or W Cont Bilat IMPRESSION: Irregular enhancing mass at the 3:00 position of the right breast as described highly suspicious for breast carcinoma. An ultrasound-guided biopsy fo r histologic confirmation is recommended. No other significant abnormality. CATEGORY: BIRADS Category 5: Highly Suggestive of Malignancy - Appropriate Action Shoul d Be Taken. A letter regarding these results will be sent to the patient by the facility within 30 days. Electronically Signed: Joanne Hagen MD at 17:00 EST , Service support , CC: Adilson Crawford MD; Mónica Petty MD Yarn Tester: Signed 26-Dec-2016 Breast Limited Unilateral Result: Comments: See Note; NOTES: [facility] Imaging Services [address] [place] [address] Breast Limited Unilateral MR#: [id number] Acct: [id number] Name: PARUL HUNTLEY Rep # : [id number] : 1950 F 66 From: Justice Gerardo MD PCP: Mónica Petty MD Status: REG CLI Study: Breast Limited Unilateral Date of Exam: 12/26/16 Exam# [id number] Ordering Dr: Mónica Petty MD STUDY: ULTRASOUND BREAST - RIGHT REASON FOR EXAM: Female, 66 years old. Abnormal mammogram. TECHNIQUE: Axial and longitudinal images of the RIGHT breast were performed with a high resolution ultrasou nd transducer. COMPARISON: Comparison is made with prior mammogram done earlier today. FINDINGS: RIGHT Breast: There is a 9 mm x 7 mm x 7 mm hypoechoic irregular n odule with posterior shadowing at the 3:00 position breast at 2 cm from the nipple. This is a suspicious lesion. A biopsy is recommended. US/[place] st Limited Unilateral IMPRESSION: 9 mm x 7 mm x 7 mm suspicious lesion is seen at the 3:00 position breast ultrasound is from nipple. A biopsy is recommended. ASSESS MENT CATEGORY: BIRADS Category 5: Highly Suggestive of Malignancy - Appropriate Action Should Be Taken. A letter regarding these results will be sent to the patient by the facility within 30 days. Elec tronically Signed: Justice Gerardo MD at 15:02 EDT Tel [phone], Service support , CC: Mónica Petty MD Yarn Tester: Signed 26-Dec-2016 SCREENING MAMM (CAD), BILAT Result: Comments: See Note; NOTES: [facility] Imaging Services [address] [place] [address] SCREENING MAMM (CAD), BILAT MR#: [id number] Acct: [id number] Name: PARUL HUNTLEY Rep #: [id number] : 1950 F 66 From: Justice Gerardo MD PCP: Mónica Petty MD Status: REG CLI Study: SCREENING MAMM (CAD), BILAT Date of Exam: 12/26/16 Exam# [id number] Ordering Dr: Mónica Petty MD MAMMOGRAPHY - BILATERAL SCREENING REASON FOR EXAM: Female, 66 years old. Routine annual screening examination. PERTINENT HISTORY: Non-contributory. Remote right excisional breast biopsy. TECHNIQ UE: Digital bilateral breast chad (3D mammographic acquisition) in the CC and MLO projections. 2-D mediolateral oblique (MLO) and craniocaudad (CC) views of both breasts were obtained. CAD: Full Field D igital Mammography with Computer Added Detection was performed. COMPARISON: Comparison is made with prior study dated December 20, 2015 and December 13, 2014. FINDING S: Breast Composition: The breasts are heterogeneously dense, which may obscure small masses. Focal area of architectural distortion is seen in the mid medial aspect of the right breast. Correlation wi th ultrasound is recommended. This may be the site of prior biopsy. No other significant abnormalities are identified. HPBI/SCREENING MAMM (CAD) , BILAT IMPRESSION: Focal area of architectural distortion is seen in the right breast as described. Correlation with ultrasound and possible additional mammographic views is recommended. ASSESSMENT CATEGORY: BIRADS Category 0: Incomplete. Need additional imaging evaluation. A letter regarding these results will be sent to the patient by the facility within 30 day s. Approximately 10% of breast cancers are not detected by mammography. A normal mammogram should not delay biopsy of a clinically suspicious abnormality. [id number] Electronically Signed: Justice suggs MD at 11:31 EDT Tel [phone], Service support , CC: Mónica Petty MD Yarn Tester: Signed 20-Dec-2015 Bilat Scrn Digital AND CAD Result: Comments: See Note; NOTES: [facility] Imaging Services [address] [place] [address] Verdana 4d Bilat Scrn Digital AND CAD MR#: [id number] Acct: [id number] Name: SCOTT HUNTLEY Rep #: [id number] : 1950 F 65 From: Justice Gerardo MD PCP: Mónica Petty MD Status: REG CLI Study: Bilat Scrn Digital AND CAD Date of Exam: 12/20/15 Exam# [id number] Ordering Dr: Mónica Corral MD MAMMOGRAPHY - BILATERAL SCREENING REASON FOR EXAM: Female, 65 years old. Routine annual screening examination. PERTINENT HISTORY: Non- contributory. TECHNIQUE: Digital bilateral breast chad (3D mammographic acquisition) in the CC and MLO projections. 2-D mediolateral oblique (MLO) and craniocaudad (CC) views of both breasts were obtained. CAD: Full Field Digital Mammography with Comp uter Added Detection was performed. COMPARISON: Comparison is made with prior study dated December 13, 2014 and May 17, 2013. FINDINGS: Breast Composition: The jennifer asts are heterogeneously dense, which may obscure small masses. There are no dominant masses or suspicious calcifications. No other significant abnormalities are identified. There has been no signific ant change since the prior study. HPBI/Bilat Scrn Digital AND CAD IMPRESSION: Stable bilateral screening mammogram. Yearly follow-up mammogram r ecommended. (A) ASSESSMENT CATEGORY: BIRADS Category 1: Negative. A letter regarding these results will be sent to the patient by the facility within 30 days. Appr oximately 10% of breast cancers are not detected by mammography. A normal mammogram should not delay biopsy of a clinically suspicious abnormality. [id number] Electronically Signed: Justice Gerardo MD at 14:08 EDT Tel [phone], Service support [phone], CC: Mónica Petty MD Yarn Tester: Signed 13-Dec-2014 Bilat Scrn Digital AND CAD Result: Comments: See Note; NOTES: [facility] Imaging Services [address] [place] [address] Breast Imaging Report MR#: [id number] Acct: [id number] Name: PARUL HUNTLEY Rep #: [id number] : 1950 F 64 From: Justice Gerardo MD PCP: Mónica Petty MD Status: REG CLI Study: Bilat Scrn Digital AND CAD Date of Exam: 12/13/14 Exam# [id number] Ordering Dr: Mónica Grant MD MAMMOGRAPHY - BILATERAL SCREENING REASON FOR EXAM: Female, 64 years old. Routine annual screening examination. PERTINENT HISTORY: Remote right excisional breast biopsy and axillary node dissection. TECHNIQUE: Digital examination. Mediolateral oblique (MLO) and craniocaudad (CC) views of both breasts were obtained. CAD: CAD was performed on this study. COMPARISON: Comparison is made with prior study dated May 17, 2013 and August 20, 2011. FINDINGS: Breast Composition: The breasts are heterogeneously dense, which may obscure small m asses. There are no dominant masses or suspicious calcifications. No other significant abnormalities are identified. There has been no significant change since the prior study. IMPRESSION: Stable bilateral screening mammogram. Yearly follow- up recommended. (A) ASSESSMENT CATEGORY: BIRADS Category 1: Negative. A lette r regarding these results will be sent to the patient by the facility within 30 days. Approximately 10% of breast cancers are not detected by mammography. A normal mammogram should not delay biopsy of a clinically suspicious abnormality. Electronically Signed: Justice Gerardo MD at 8:13 EDT Tel [phone], Service support [phone], CC: Mónica Petty MD Yarn Tester: Signed 26-Apr-2014 Knee 4 or More Views Result: Comments: See Note; NOTES: [facility] Imaging Services [address] [place] [address] Radiology Report MR#: [id number] Acct: [id number] Name: PARUL HUNTLEY Rep #: [id number] : 1950 F 63 From: Justice Gerardo MD PCP: Mónica Petty MD Status: REG CLI Study: Knee 4 or More Views Date of Exam: 04/26/14 Exam# [id number] Ordering Dr: Mónica Petty MD S TUDY: X-RAY - LEFT KNEE REASON FOR EXAM: Female, 63 years old. Pain. TECHNIQUE: 4 view(s) of the knee. COMPARISON: None. FINDINGS: Normal visualized distal femur. Normal visualized proximal tibia and fibula. Normal proximal tibiofibular articulation. Normal medial femorotibial compartment. Normal lateral femorotibial compartment. Normal patellofemoral articulation. The soft tissue structures are unremarkable. IMPRESSION: Normal x-ray examination of the knee. Electronically Signed: Justice Gerardo MD 2 at 15:36 EST Tel [phone], Service support [phone], CC: Mónica Petty MD Yarn Tester: Signed 17-May-2013 [employer] [employer] Result: Comments: See Note; NOTES: [facility] Imaging Services [address] [place] [address] Breast Imaging Report MR#: [id number] Acct: [id number] Name: PARUL HUNTLEY Rep #: [id number] : 1950 F 62 From: Justice Gerardo MD PCP: Mónica Petty MD Status: REG CLI Exam# [id number] Ordering Dr: Mónica Petty MD MAMMOGRAPHY - BILATERAL SCREENING REASON FOR EXAM: Female, 62 years old. Routine annual screening examination. PERTINENT HISTORY: Prior right excisional breast biopsy. TECHNIQUE: Digital examination. Mediolateral oblique (MLO) and craniocaud ad (CC) views of both breasts were obtained. CAD: CAD was performed on this study. COMPARISON: Comparison is made with prior study dated August 20, 2011 and August 15, 2010. FINDINGS: The breast composition is heterogeneously dense - ranging from 51% to 75% of the breast tissue. There are no dominant masses or suspicious calcifications. No other significant abnormalities are identified. There has been no significant change since the prior study. IMPRESSION: Stable bilateral screening mammogram. Yearly follow-up rec ommended. (A) ASSESSMENT CATEGORY: BIRADS Category 2: Benign finding(s). A letter regarding these results will be sent to the patient by the facility within 30 d ays. Approximately 10% of breast cancers are not detected by mammography. A normal mammogram should not delay biopsy of a clinically suspicious abnormality. Electronically Signed: Justice koehler M.D. at 11:03 EDT , Service support [phone], CC: Mónica Petty MD Yarn Tester: Signed Family History Unknown Family Member Name Dates Details 8 siblings: Sjorgens, DM in 2 sisters, RA, younger sister had CT and DM Comments: CT at 63yo. hyperthyriodism Status: Active Father Comments: at [address] [place], not involved with him not know history, acoholism Status: Active maternal cousin neck cancer 17 yo Status: Active maternal uncle Parkinsons Status: Active Mother Comments: at [address] [place], DM in 50's obesity. some high cholesterol. 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 work at [employer]. left [place] at 18 yo to live with sister to help. mennonite Status: Active Exercise History Comments: Light Status: Active Living Situation Comments: , Lives with spouse, he is more controlling and possesive and depressed as get older Status: Active No Drug Use Status: Active Non Drinker/No Alcohol Use Status: Active Non Smoker/No Tobacco Use Status: Active Tobacco use: Never smoker. Status: Active Smoking Status Name Dates Details Never smoker Vital Signs Date Test Result Details :55 Temperature 97.8 f Comments: Method: Temporal Pulse 74 /min Comments: Pattern: Regular Respiration Rate 20 /min Comments: Pattern: Unlabored O2 SAT 98 % Comments: Room air BP Systolic 124 mm[Hg] Comments: Patient Position: Sitting; Cuff Location: Left Arm; Cuff Size: Standard BP Diastolic 82 mm[Hg] Comments: Patient Position: Sitting; Cuff Location: Left Arm; Cuff Size: Standard Weight 142 lb Height 60.8 in Body Mass Index Calculated 27.01 kg/m2 Body Surface Area Calculated 1.63 m2 :09 Pulse 76 /min Comments: Pattern: Regular Respiration Rate 18 /min O2 SAT 98 % Comments: Room air BP Systolic 126 mm[Hg] Comments: Patient Position: Sitting BP Diastolic 82 mm[Hg] Comments: Patient Position: Sitting :30 Temperature 97.8 f Comments: Method: Temporal Pulse 74 /min Comments: Pattern: Regular Respiration Rate 20 /min Comments: Pattern: Unlabored O2 SAT 94 % Comments: Room air BP Systolic 158 mm[Hg] Comments: Patient Position: Sitting; Cuff Location: Left Arm; Cuff Size: Standard BP Diastolic 90 mm[Hg] Comments: Patient Position: Sitting; Cuff Location: Left Arm; Cuff Size: Standard Weight 142 lb Height 60.8 in Body Mass Index Calculated 27.01 kg/m2 Body Surface Area Calculated 1.63 m2 :29 Temperature 97.9 f Comments: Method: Temporal Pulse 76 /min Comments: Pattern: Regular Respiration Rate 18 /min Comments: Pattern: Unlabored O2 SAT 98 % Comments: Room air BP Systolic 126 mm[Hg] Comments: Patient Position: Sitting; Cuff Location: Left Arm; Cuff Size: Standard BP Diastolic 84 mm[Hg] Comments: Patient Position: Sitting; Cuff Location: Left Arm; Cuff Size: Standard Weight 145 lb Height 63 in Body Mass Index Calculated 25.69 kg/m2 Body Surface Area Calculated 1.69 m2 :11 Temperature 97.6 f Comments: Method: Temporal Pulse 54 /min Comments: Pattern: Regular Respiration Rate 20 /min Comments: Pattern: Unlabored O2 SAT 98 % Comments: Room air BP Systolic 138 mm[Hg] Comments: Patient Position: Sitting; Cuff Location: Left Arm; Cuff Size: Standard BP Diastolic 84 mm[Hg] Comments: Patient Position: Sitting; Cuff Location: Left Arm; Cuff Size: Standard Weight 142 lb Height 63 in Body Mass Index Calculated 25.15 kg/m2 Body Surface Area Calculated 1.67 m2 :55 Temperature 97.6 f Comments: Method: Temporal Pulse 46 /min Comments: Pattern: Regular Respiration Rate 20 /min Comments: Pattern: Unlabored O2 SAT 98 % Comments: Room air BP Systolic 144 mm[Hg] Comments: Patient Position: Sitting; Cuff Location: Left Arm; Cuff Size: Standard BP Diastolic 98 mm[Hg] Comments: Patient Position: Sitting; Cuff Location: Left Arm; Cuff Size: Standard Weight 142 lb Height 63 in Body Mass Index Calculated 25.15 kg/m2 Body Surface Area Calculated 1.67 m2 :50 Temperature 97.6 f Comments: Method: Temporal Pulse 54 /min Comments: Pattern: Regular Respiration Rate 20 /min Comments: Pattern: Unlabored O2 SAT 98 % Comments: Room air BP Systolic 124 mm[Hg] Comments: Patient Position: Sitting; Cuff Location: Left Arm; Cuff Size: Standard BP Diastolic 74 mm[Hg] Comments: Patient Position: Sitting; Cuff Location: Left Arm; Cuff Size: Standard Weight 142 lb Height 63 in Body Mass Index Calculated 25.15 kg/m2 Body Surface Area Calculated 1.67 m2 :44 Pulse 39 /min Comments: Pattern: Regular Respiration Rate 18 /min Comments: Pattern: Unlabored O2 SAT 98 % Comments: Room air BP Systolic 130 mm[Hg] Comments: Patient Position: Sitting; Cuff Location: Left Arm; Cuff Size: Standard BP Diastolic 82 mm[Hg] Comments: Patient Position: Sitting; Cuff Location: Left Arm; Cuff Size: Standard Weight 142 lb Height 63 in Body Mass Index Calculated 25.15 kg/m2 Body Surface Area Calculated 1.67 m2 :27 Temperature 97.6 f Comments: Method: Temporal Pulse 60 /min Comments: Pattern: Regular Respiration Rate 20 /min Comments: Pattern: Unlabored O2 SAT 98 % Comments: Room air BP Systolic 144 mm[Hg] Comments: Patient Position: Sitting; Cuff Location: Left Arm; Cuff Size: Standard BP Diastolic 98 mm[Hg] Comments: Patient Position: Sitting; Cuff Location: Left Arm; Cuff Size: Standard Weight 140 lb Height 63 in Body Mass Index Calculated 24.8 kg/m2 Body Surface Area Calculated 1.66 m2 :54 Comments: patient did not take b/p meds this am Temperature 97.6 f Comments: Method: Temporal Pulse 74 /min Comments: Pattern: Regular Respiration Rate 20 /min Comments: Pattern: Unlabored O2 SAT 98 % Comments: Room air BP Systolic 160 mm[Hg] Comments: Patient Position: Sitting; Cuff Location: Left Arm; Cuff Size: Standard BP Diastolic 90 mm[Hg] Comments: Patient Position: Sitting; Cuff Location: Left Arm; Cuff Size: Standard Weight 143 lb Height 63 in Body Mass Index Calculated 25.33 kg/m2 Body Surface Area Calculated 1.68 m2 :23 Temperature 97.6 f Comments: Method: Temporal Pulse 78 /min Comments: Pattern: Regular Respiration Rate 20 /min Comments: Pattern: Unlabored O2 SAT 97 % Comments: Room air BP Systolic 146 mm[Hg] Comments: Patient Position: Sitting; Cuff Location: Left Arm; Cuff Size: Standard BP Diastolic 100 mm[Hg] Comments: Patient Position: Sitting; Cuff Location: Left Arm; Cuff Size: Standard Weight 143 lb Height 63 in Body Mass Index Calculated 25.33 kg/m2 Body Surface Area Calculated 1.68 m2 :45 Temperature 97.6 f Comments: Method: Temporal Pulse 74 /min Comments: Pattern: Regular Respiration Rate 18 /min Comments: Pattern: Unlabored O2 SAT 97 % Comments: Room air BP Systolic 124 mm[Hg] Comments: Patient Position: Sitting; Cuff Location: Left Arm; Cuff Size: Standard BP Diastolic 80 mm[Hg] Comments: Patient Position: Sitting; Cuff Location: Left Arm; Cuff Size: Standard Weight 145 lb Height 63 in Body Mass Index Calculated 25.69 kg/m2 Body Surface Area Calculated 1.69 m2 :49 Temperature 97.8 f Pulse 85 /min Comments: Pattern: Regular Respiration Rate 16 /min Comments: Pattern: Unlabored O2 SAT 97 % Comments: Room air BP Systolic 126 mm[Hg] Comments: Patient Position: Sitting; Cuff Location: Left Arm; Cuff Size: Standard BP Diastolic 82 mm[Hg] Comments: Patient Position: Sitting; Cuff Location: Left Arm; Cuff Size: Standard Weight 143.5 lb Height 63 in Body Mass Index Calculated 25.42 kg/m2 Body Surface Area Calculated 1.68 m2 :22 Temperature 98.7 f Comments: Method: Temporal Pulse 92 /min Comments: Pattern: Regular Respiration Rate 17 /min Comments: Pattern: Unlabored O2 SAT 98 % Comments: Room air BP Systolic 124 mm[Hg] Comments: Patient Position: Sitting; Cuff Location: Left Arm; Cuff Size: Standard BP Diastolic 78 mm[Hg] Comments: Patient Position: Sitting; Cuff Location: Left Arm; Cuff Size: Standard Weight 145.2 lb Height 63 in Body Mass Index Calculated 25.72 kg/m2 Body Surface Area Calculated 1.69 m2 :14 Pulse 80 /min Comments: Pattern: Regular Respiration Rate 16 /min Comments: Pattern: Unlabored O2 SAT 98 % Comments: Room air BP Systolic 152 mm[Hg] Comments: Patient Position: Sitting; Cuff Location: Left Arm; Cuff Size: Standard BP Diastolic 88 mm[Hg] Comments: Patient Position: Sitting; Cuff Location: Left Arm; Cuff Size: Standard Weight 140 lb Height 63 in Body Mass Index Calculated 24.8 kg/m2 Body Surface Area Calculated 1.66 m2 :14 Comments: Pt has lost 7 lbs, states not trying to lose weight, not eating any different Temperature 97.1 f Comments: Method: Oral Pulse 81 /min Comments: Pattern: Regular Respiration Rate 18 /min Comments: Pattern: Unlabored O2 SAT 97 % Comments: Room air BP Systolic 132 mm[Hg] Comments: Patient Position: Sitting; Cuff Location: Left Arm; Cuff Size: Standard BP Diastolic 100 mm[Hg] Comments: Patient Position: Sitting; Cuff Location: Left Arm; Cuff Size: Standard Weight 140 lb Height 63 in Body Mass Index Calculated 24.8 kg/m2 Body Surface Area Calculated 1.66 m2 [id number]:21 Temperature 98.2 f Comments: Method: Temporal Pulse 72 /min Comments: Pattern: Regular Respiration Rate 16 /min Comments: Pattern: Unlabored O2 SAT 98 % Comments: Room air BP Systolic 128 mm[Hg] Comments: Patient Position: Sitting; Cuff Location: Left Arm; Cuff Size: Standard BP Diastolic 78 mm[Hg] Comments: Patient Position: Sitting; Cuff Location: Left Arm; Cuff Size: Standard Weight 147 lb Height 63 in Body Mass Index Calculated 26.04 kg/m2 Body Surface Area Calculated 1.7 m2 :54 Temperature 98.3 f Comments: Method: Oral Pulse 69 /min Comments: Pattern: Regular Respiration Rate 16 /min Comments: Pattern: Unlabored O2 SAT 98 % Comments: Room air BP Systolic 130 mm[Hg] Comments: Patient Position: Sitting; Cuff Location: Left Arm; Cuff Size: Standard BP Diastolic 80 mm[Hg] Comments: Patient Position: Sitting; Cuff Location: Left Arm; Cuff Size: Standard Weight 147 lb Height 63 in Body Mass Index Calculated 26.04 kg/m2 Body Surface Area Calculated 1.7 m2 :30 Temperature 97.6 f Comments: Method: Oral Pulse 68 /min Comments: Pattern: Regular Respiration Rate 20 /min Comments: Pattern: Unlabored BP Systolic 118 mm[Hg] Comments: Patient Position: Sitting; Cuff Location: Left Arm; Cuff Size: Standard BP Diastolic 76 mm[Hg] Comments: Patient Position: Sitting; Cuff Location: Left Arm; Cuff Size: Standard Weight 141 lb Height 63 in Body Mass Index Calculated 24.98 kg/m2 Body Surface Area Calculated 1.67 m2 :07 Temperature 97.6 f Comments: Method: Oral Pulse 70 /min Comments: Pattern: Regular Respiration Rate 16 /min Comments: Pattern: Unlabored BP Systolic 120 mm[Hg] Comments: Patient Position: Sitting; Cuff Location: Left Arm; Cuff Size: Standard BP Diastolic 72 mm[Hg] Comments: Patient Position: Sitting; Cuff Location: Left Arm; Cuff Size: Standard Weight 145.1875 lb Height 63 in Body Mass Index Calculated 25.72 kg/m2 Body Surface Area Calculated 1.69 m2 :07 Temperature 97.9 f Comments: Method: Oral Pulse 72 /min Comments: Pattern: Regular Respiration Rate 16 /min Comments: Pattern: Unlabored BP Systolic 124 mm[Hg] Comments: Patient Position: Sitting; Cuff Location: Left Arm; Cuff Size: Standard BP Diastolic 74 mm[Hg] Comments: Patient Position: Sitting; Cuff Location: Left Arm; Cuff Size: Standard Weight 145.1875 lb Height 63 in Body Mass Index Calculated 25.72 kg/m2 Body Surface Area Calculated 1.69 m2 :55 Temperature 98.2 f Comments: Method: Oral Pulse 68 /min Comments: Pattern: Regular Respiration Rate 16 /min Comments: Pattern: Unlabored BP Systolic 116 mm[Hg] Comments: Patient Position: Sitting; Cuff Location: Left Arm; Cuff Size: Standard BP Diastolic 76 mm[Hg] Comments: Patient Position: Sitting; Cuff Location: Left Arm; Cuff Size: Standard Weight 145.1875 lb Height 63 in Body Mass Index Calculated 25.72 kg/m2 Body Surface Area Calculated 1.69 m2 :10 Temperature 98.8 f Comments: Method: Oral Pulse 60 /min Comments: Pattern: Regular Respiration Rate 15 /min Comments: Pattern: Unlabored BP Systolic 142 mm[Hg] Comments: Patient Position: Sitting; Cuff Location: Left Arm; Cuff Size: Standard BP Diastolic 82 mm[Hg] Comments: Patient Position: Sitting; Cuff Location: Left Arm; Cuff Size: Standard Weight 145.1875 lb Height 63 in Body Mass Index Calculated 25.72 kg/m2 Body Surface Area Calculated 1.69 m2 :34 Temperature 97.7 f Comments: Method: Oral Pulse 66 /min Comments: Pattern: Regular Respiration Rate 18 /min Comments: Pattern: Unlabored O2 SAT 97 % Comments: Room air BP Systolic 124 mm[Hg] Comments: Patient Position: Sitting; Cuff Location: Left Arm; Cuff Size: Standard BP Diastolic 80 mm[Hg] Comments: Patient Position: Sitting; Cuff Location: Left Arm; Cuff Size: Standard Weight 146 lb Height 63 in Body Mass Index Calculated 25.86 kg/m2 Body Surface Area Calculated 1.69 m2 :42 Temperature 97.9 f Comments: Method: Oral Pulse 62 /min Comments: Pattern: Regular Respiration Rate 18 /min Comments: Pattern: Unlabored BP Systolic 136 mm[Hg] Comments: Patient Position: Sitting; Cuff Location: Left Arm; Cuff Size: Standard BP Diastolic 84 mm[Hg] Comments: Patient Position: Sitting; Cuff Location: Left Arm; Cuff Size: Standard Weight 146 lb Height 63 in Body Mass Index Calculated 25.86 kg/m2 Body Surface Area Calculated 1.69 m2 :40 Temperature 97.6 f Comments: Method: Oral Pulse 64 /min Comments: Pattern: Regular Respiration Rate 18 /min Comments: Pattern: Unlabored BP Systolic 132 mm[Hg] Comments: Patient Position: Sitting; Cuff Location: Left Arm; Cuff Size: Standard BP Diastolic 80 mm[Hg] Comments: Patient Position: Sitting; Cuff Location: Left Arm; Cuff Size: Standard Weight 146 lb Height 63 in Body Mass Index Calculated 25.86 kg/m2 Body Surface Area Calculated 1.69 m2 :32 Temperature 97.6 f Comments: Method: Oral Pulse 68 /min Comments: Pattern: Regular Respiration Rate 18 /min Comments: Pattern: Unlabored BP Systolic 142 mm[Hg] Comments: Patient Position: Sitting; Cuff Location: Left Arm; Cuff Size: Standard BP Diastolic 88 mm[Hg] Comments: Patient Position: Sitting; Cuff Location: Left Arm; Cuff Size: Standard Weight 147 lb Height 63 in Body Mass Index Calculated 26.04 kg/m2 Body Surface Area Calculated 1.7 m2 :28 Temperature 96.9 f Pulse 64 /min Comments: Pattern: Regular Respiration Rate 18 /min Comments: Pattern: Unlabored BP Systolic 138 mm[Hg] Comments: Patient Position: Sitting; Cuff Location: Left Arm; Cuff Size: Large BP Diastolic 84 mm[Hg] Comments: Patient Position: Sitting; Cuff Location: Left Arm; Cuff Size: Large :13 Temperature 97.7 f Comments: Method: Oral Pulse 64 /min Comments: Pattern: Regular Respiration Rate 20 /min Comments: Pattern: Unlabored BP Systolic 130 mm[Hg] Comments: Patient Position: Sitting; Cuff Location: Left Arm; Cuff Size: Large BP Diastolic 82 mm[Hg] Comments: Patient Position: Sitting; Cuff Location: Left Arm; Cuff Size: Large Weight 143.0625 lb Height 63 in Body Mass Index Calculated 25.34 kg/m2 Body Surface Area Calculated 1.68 m2 :41 Pulse 80 /min Comments: Pattern: Regular Respiration Rate 20 /min Comments: Pattern: Unlabored BP Systolic 142 mm[Hg] Comments: Patient Position: Sitting; Cuff Location: Left Arm; Cuff Size: Large BP Diastolic 90 mm[Hg] Comments: Patient Position: Sitting; Cuff Location: Left Arm; Cuff Size: Large Weight 143.0625 lb Height 63 in Body Mass Index Calculated 25.34 kg/m2 Body Surface Area Calculated 1.68 m2 :07 Pulse 60 /min Comments: Pattern: Regular Respiration Rate 16 /min Comments: Pattern: Unlabored BP Systolic 136 mm[Hg] Comments: Patient Position: Supine; Cuff Location: Left Arm; Cuff Size: Standard BP Diastolic 86 mm[Hg] Comments: Patient Position: Supine; Cuff Location: Left Arm; Cuff Size: Standard Weight 143.25 lb Height 63 in Body Mass Index Calculated 25.38 kg/m2 Body Surface Area Calculated 1.68 m2 :14 Pulse 68 /min Comments: Pattern: Regular Respiration Rate 16 /min Comments: Pattern: Unlabored BP Systolic 136 mm[Hg] Comments: Patient Position: Sitting; Cuff Location: Left Arm; Cuff Size: Standard BP Diastolic 88 mm[Hg] Comments: Patient Position: Sitting; Cuff Location: Left Arm; Cuff Size: Standard Weight 142.25 lb :51 Temperature 98.1 f Comments: Method: Oral Pulse 70 /min Comments: Pattern: Regular Respiration Rate 18 /min Comments: Pattern: Unlabored BP Systolic 132 mm[Hg] Comments: Patient Position: Sitting; Cuff Location: Left Arm; Cuff Size: Standard BP Diastolic 86 mm[Hg] Comments: Patient Position: Sitting; Cuff Location: Left Arm; Cuff Size: Standard :31 Temperature 97.8 f Pulse 76 /min Comments: Pattern: Regular Respiration Rate 18 /min Comments: Pattern: Unlabored BP Systolic 148 mm[Hg] Comments: Patient Position: Sitting; Cuff Location: Left Arm; Cuff Size: Large BP Diastolic 100 mm[Hg] Comments: Patient Position: Sitting; Cuff Location: Left Arm; Cuff Size: Large :25 Temperature 97.4 f Comments: Method: Oral Pulse 78 /min Comments: Pattern: Regular Respiration Rate 16 /min Comments: Pattern: Unlabored BP Systolic 144 mm[Hg] Comments: Patient Position: Sitting; Cuff Location: Left Arm; Cuff Size: Standard BP Diastolic 82 mm[Hg] Comments: Patient Position: Sitting; Cuff Location: Left Arm; Cuff Size: Standard Weight 145 lb Height 63 in Body Mass Index Calculated 25.69 kg/m2 Body Surface Area Calculated 1.69 m2 :53 Temperature 97.9 f Comments: Method: Oral Pulse 64 /min Comments: Pattern: Regular Respiration Rate 16 /min Comments: Pattern: Unlabored BP Systolic 142 mm[Hg] Comments: Patient Position: Sitting; Cuff Location: Left Arm; Cuff Size: Standard BP Diastolic 80 mm[Hg] Comments: Patient Position: Sitting; Cuff Location: Left Arm; Cuff Size: Standard Weight 0 lb Height 0 in Head Circumference 0.00 cm :59 Temperature 96.6 f Comments: Method: Oral Pulse 72 /min Comments: Pattern: Regular Respiration Rate 16 /min Comments: Pattern: Unlabored O2 SAT 97 % Comments: Room air BP Systolic 122 mm[Hg] Comments: Patient Position: Sitting; Cuff Location: Left Arm; Cuff Size: Large BP Diastolic 78 mm[Hg] Comments: Patient Position: Sitting; Cuff Location: Left Arm; Cuff Size: Large Weight 145 lb Height 63 in Body Mass Index Calculated 25.69 kg/m2 Body Surface Area Calculated 1.69 m2 Head Circumference 0.00 cm :25 Pulse 72 /min Comments: Pattern: Regular Respiration Rate 16 /min Comments: Pattern: Unlabored BP Systolic 124 mm[Hg] Comments: Patient Position: Sitting; Cuff Location: Left Arm; Cuff Size: Standard BP Diastolic 84 mm[Hg] Comments: Patient Position: Sitting; Cuff Location: Left Arm; Cuff Size: Standard Weight 145 lb Height 0 in Head Circumference 0.00 cm :53 Temperature 98.1 f Comments: Method: Oral Pulse 70 /min Comments: Pattern: Regular Respiration Rate 16 /min Comments: Pattern: Unlabored BP Systolic 132 mm[Hg] Comments: Patient Position: Sitting; Cuff Location: Left Arm; Cuff Size: Standard BP Diastolic 90 mm[Hg] Comments: Patient Position: Sitting; Cuff Location: Left Arm; Cuff Size: Standard Weight 0 lb Height 0 in Head Circumference 0.00 cm :44 Temperature 97.3 f Comments: Method: Oral Pulse 70 /min Comments: Pattern: Regular Respiration Rate 18 /min Comments: Pattern: Unlabored O2 SAT 99 % Comments: Room air BP Systolic 116 mm[Hg] Comments: Patient Position: Sitting; Cuff Location: Left Arm; Cuff Size: Standard BP Diastolic 72 mm[Hg] Comments: Patient Position: Sitting; Cuff Location: Left Arm; Cuff Size: Standard Weight 145.5625 lb Height 63 in Body Mass Index Calculated 25.78 kg/m2 Body Surface Area Calculated 1.69 m2 Head Circumference 0.00 cm :38 Temperature 97.4 f Comments: Method: Oral Pulse 64 /min Comments: Pattern: Regular Respiration Rate 18 /min Comments: Pattern: Unlabored BP Systolic 132 mm[Hg] Comments: Patient Position: Sitting; Cuff Location: Left Arm; Cuff Size: Standard BP Diastolic 78 mm[Hg] Comments: Patient Position: Sitting; Cuff Location: Left Arm; Cuff Size: Standard Weight 145.5625 lb Height 63 in Body Mass Index Calculated 25.78 kg/m2 Body Surface Area Calculated 1.69 m2 Head Circumference 0.00 cm :36 Temperature 97.5 f Comments: Method: Oral Pulse 80 /min Comments: Pattern: Regular Respiration Rate 18 /min Comments: Pattern: Unlabored BP Systolic 132 mm[Hg] Comments: Patient Position: Sitting; Cuff Location: Left Arm; Cuff Size: Standard BP Diastolic 84 mm[Hg] Comments: Patient Position: Sitting; Cuff Location: Left Arm; Cuff Size: Standard Weight 144.3125 lb Height 0 in Head Circumference 0.00 cm :04 Temperature 97.6 f Comments: Method: Oral Pulse 84 /min Comments: Pattern: Regular Respiration Rate 18 /min Comments: Pattern: Unlabored BP Systolic 130 mm[Hg] Comments: Patient Position: Sitting; Cuff Location: Left Arm; Cuff Size: Standard BP Diastolic 84 mm[Hg] Comments: Patient Position: Sitting; Cuff Location: Left Arm; Cuff Size: Standard Weight 144.3125 lb Height 0 in Head Circumference 0.00 cm :48 Temperature 97.8 f Comments: Method: Oral Pulse 82 /min Comments: Pattern: Regular Respiration Rate 18 /min Comments: Pattern: Unlabored BP Systolic 152 mm[Hg] Comments: Patient Position: Sitting; Cuff Location: Left Arm; Cuff Size: Standard BP Diastolic 88 mm[Hg] Comments: Patient Position: Sitting; Cuff Location: Left Arm; Cuff Size: Standard Weight 144.3125 lb Height 0 in Head Circumference 0.00 cm :26 Temperature 98.1 f Comments: Method: Undefined Pulse 88 /min Comments: Pattern: Regular Respiration Rate 18 /min Comments: Pattern: Unlabored BP Systolic 144 mm[Hg] Comments: Patient Position: Sitting; Cuff Location: Left Arm; Cuff Size: Large BP Diastolic 84 mm[Hg] Comments: Patient Position: Sitting; Cuff Location: Left Arm; Cuff Size: Large Weight 0 lb Height 0 in Head Circumference 0.00 cm :14 Pulse 72 /min Comments: Pattern: Regular Respiration Rate 16 /min Comments: Pattern: Unlabored BP Systolic 140 mm[Hg] Comments: Patient Position: Sitting; Cuff Location: Left Arm; Cuff Size: Standard BP Diastolic 78 mm[Hg] Comments: Patient Position: Sitting; Cuff Location: Left Arm; Cuff Size: Standard Weight 144.3125 lb Height 0 in Head Circumference 0.00 cm :05 Temperature 98.2 f Comments: Method: Oral Pulse 70 /min Comments: Pattern: Regular Respiration Rate 18 /min Comments: Pattern: Unlabored BP Systolic 130 mm[Hg] Comments: Patient Position: Sitting; Cuff Location: Left Arm; Cuff Size: Standard BP Diastolic 96 mm[Hg] Comments: Patient Position: Sitting; Cuff Location: Left Arm; Cuff Size: Standard Weight 145 lb Height 0 in Head Circumference 0.00 cm :50 Temperature 98.2 f Comments: Method: Oral Pulse 68 /min Comments: Pattern: Regular Respiration Rate 18 /min Comments: Pattern: Unlabored BP Systolic 156 mm[Hg] Comments: Patient Position: Sitting; Cuff Location: Left Arm; Cuff Size: Large BP Diastolic 94 mm[Hg] Comments: Patient Position: Sitting; Cuff Location: Left Arm; Cuff Size: Large Weight 140 lb Height 0 in Head Circumference 0.00 cm :05 Temperature 97.7 f Comments: Method: Oral Pulse 74 /min Comments: Pattern: Regular Respiration Rate 18 /min Comments: Pattern: Unlabored BP Systolic 124 mm[Hg] Comments: Patient Position: Sitting; Cuff Location: Left Arm; Cuff Size: Standard BP Diastolic 80 mm[Hg] Comments: Patient Position: Sitting; Cuff Location: Left Arm; Cuff Size: Standard Weight 0 lb Height 0 in Head Circumference 0.00 cm :20 Temperature 97.6 f Comments: Method: Oral Pulse 70 /min Comments: Pattern: Regular Respiration Rate 20 /min Comments: Pattern: Unlabored BP Systolic 130 mm[Hg] Comments: Patient Position: Sitting; Cuff Location: Left Arm; Cuff Size: Standard BP Diastolic 92 mm[Hg] Comments: Patient Position: Sitting; Cuff Location: Left Arm; Cuff Size: Standard Weight 0 lb Height 0 in Head Circumference 0.00 cm :36 Temperature 98.6 f Comments: Method: Oral Pulse 70 /min Comments: Pattern: Regular Respiration Rate 20 /min Comments: Pattern: Unlabored BP Systolic 126 mm[Hg] Comments: Patient Position: Sitting; Cuff Location: Left Arm; Cuff Size: Standard BP Diastolic 80 mm[Hg] Comments: Patient Position: Sitting; Cuff Location: Left Arm; Cuff Size: Standard Weight 0 lb Height 0 in Head Circumference 0.00 cm :52 Temperature 98.8 f Comments: Method: Undefined Pulse 78 /min Comments: Pattern: Regular Respiration Rate 16 /min Comments: Pattern: Undefined BP Systolic 144 mm[Hg] Comments: Patient Position: Undefined; Cuff Location: Undefined; Cuff Size: Undefined BP Diastolic 90 mm[Hg] Comments: Patient Position: Undefined; Cuff Location: Undefined; Cuff Size: Undefined Weight 0 lb Height 0 in Head Circumference 0.00 cm :13 Temperature 98.1 f Comments: Method: Oral Pulse 78 /min Comments: Pattern: Regular Respiration Rate 20 /min Comments: Pattern: Unlabored BP Systolic 134 mm[Hg] Comments: Patient Position: Sitting; Cuff Location: Left Arm; Cuff Size: Standard BP Diastolic 90 mm[Hg] Comments: Patient Position: Sitting; Cuff Location: Left Arm; Cuff Size: Standard Weight 140 lb Height 0 in Head Circumference 0.00 cm [id number]:20 Temperature 97.6 f Comments: Method: Oral Pulse 76 /min Comments: Pattern: Regular Respiration Rate 20 /min Comments: Pattern: Unlabored BP Systolic 124 mm[Hg] Comments: Patient Position: Sitting; Cuff Location: Left Arm; Cuff Size: Standard BP Diastolic 80 mm[Hg] Comments: Patient Position: Sitting; Cuff Location: Left Arm; Cuff Size: Standard Weight 140 lb Height 0 in Head Circumference 0.00 cm :47 Temperature 97.9 f Comments: Method: Oral Pulse 66 /min Comments: Pattern: Regular Respiration Rate 18 /min Comments: Pattern: Unlabored BP Systolic 144 mm[Hg] Comments: Patient Position: Sitting; Cuff Location: Left Arm; Cuff Size: Standard BP Diastolic 84 mm[Hg] Comments: Patient Position: Sitting; Cuff Location: Left Arm; Cuff Size: Standard Weight 143.125 lb Height 63 in Body Mass Index Calculated 25.35 kg/m2 Body Surface Area Calculated 1.68 m2 Head Circumference 0.00 cm Results Date Description Value Details [id number]-Nxu-[id number]:48 Pap IG, rfx HPV Comments: Source.............Cervix;EndocervixNo. of containers..01 ThinPrep VialPATIENT NOT FASTINGPERFORMED BY: [facility] [id number] Information: [id number] all pth Note: PAPSMR (Normal) Comments: The Pap smear is a screening test designed to aid in the detection ofpremalignant and malignant conditions of the uterine cervix. It is not adiagnostic procedure and should not be used as the sole mean s of detectingcervical cancer. Both false-positive and false-negative reports do occur. .This liquid based ThinPrep(R) pap test w as screened with theuse of an image guided system.The HPV DNA reflex criteria were not met with this specimen resulttherefore, no HPV testing was performed. . See Note . (Normal) DIAGNOSIS: SPRCS (Normal) Comments: NEGATIVE FOR INTRAEPITHELIAL LESION AND MALIGNANCY.CELLULAR CHANGES ASSOCIATED WITH ATROPHY ARE PRESENT.Satisfactory for evaluation. Endocervical and/or squamous metaplasticcells (endocervical componen t) are present.Partially obscuring thick areas are present.Z12.Hetal Duarte, Swim Instructor ([facility])Cassie Jain, Supervisory Swim Instructor ([facility]) 85-Fxa-[id number]:58 C-REACT PROT HIGH SENS(hsCRP) Comments: PATIENT NOT FASTINGPERFORMED BY: [facility] [id number] ([id number]) C-Reactive Protein, Cardiac 11.71 mg/L (Abnormal) Range: 0.00-3.00 Comments: Relative Risk for Future Cardiovascular Event Low <1.00 Average 1.00 - 3.00 High >3.00 32-Oay-[id number]:12 Microscopic Examination Comments: PATIENT NOT FASTINGPERFORMED BY: [facility] [id number] Bacteria Moderate (Abnormal) Mucus Threads Present (Normal) Crystal Type Amorphous Sediment (Normal) Crystals Present (Abnormal) Epithelial Cells (non renal) 0-10 {/hpf} (Normal) Range: 0 - 10 RBC 3-10 {/hpf} (Abnormal) Range: 0 - 2 WBC >30 {/hpf} (Abnormal) Range: 0 - 5 41-Mfi-502471:46 URINE BOOGIE CULTURE-IDENTIFICATN Comments: PATIENT NOT FASTINGPERFORMED BY: [facility] [facility] [id number] Information: SRC:MICHELLE ([id number]) Antimicrobial MIHEAD (Normal) Comments: S = Susceptible; I = Intermediate; R = Resistant P = Positive; N = Negative MICS are expressed in micrograms per mL Antibiotic RSLT#1 RSLT#2 RS Susceptibility LT#3 RSLT#4Amoxicillin/Clavulanic Acid SAmpicillin SCefepime SCeftriaxone SCefuroxime SCiprofloxacin SErtapenem SGentamicin SImipenem SLevofloxacin SMeropenem SNitrofurantoin SPipera cillin/Tazobactam STetracycline STobramycin STrimethoprim/Sulfa S Result 1 Escherichia coli Comments: Greater than 100,000 colony forming units per mLCefazolin <=4 ug/mLCefazolin with an CAMILA <=16 predicts susceptibility to the oral agentscefaclor, cefdinir, cefpodoxime, cefprozil, cefuroxime, ceph (Abnormal) alexin,and loracarbef when used for therapy of uncomplicated urinary tractinfections due to E. coli, Klebsiella pneumoniae, and Proteusmirabilis. Urine Final report Culture,Comprehensive (Abnormal) [id number]-Cxi-[id number]:27 CBC W/Diff, Automated Comments: Reason for Laboratory Test .[facility] [address] [place], [place], [id number] Absolute Lymph 1.08 {X10_3/ul} (Normal) Range: 0.83-4.51 Absolute Neut 3.4 {X10_3/uL} (Normal) Range: 2.0-7.7 IM GRAN % 0.000 % (Normal) Range: 0.0-0.9 Comments: IG% - Immature Granulocytes (promyelocytes, myelocytes andmetamyelocytes) > 1% indicates that a LEFT SHIFT is Present. BASO% 0.6 % (Normal) Range: 0-1 EO% 1.6 % (Normal) Range: 0-5 MONO% 8.5 % (Normal) Range: 0-10 LY% 21.8 % (Normal) Range: 19-41 NEUT% 67.5 % (Normal) Range: 47-70 MPV 9.5 fL (Normal) Range: 6.2-12.0 PLT 291 K/mm3 (Normal) Range: 150-450 RDW SD 48.2 fL (Abnormal) Range: 35.1-43.9 RDW CV 14.3 % (Normal) Range: 11.6-14.6 MCHC 31.9 {g/gl} (Abnormal) Range: 32-36 MCH 29.1 pg (Normal) Range: 27.0-32.0 MCV 91.2 fL (Normal) Range: 81-99 HCT 40.4 % (Normal) Range: 37-47 HGB 12.9 g/dL (Normal) Range: 12.0-15.0 RBC 4.43 {M/mm3} (Normal) Range: 4.2-5.4 WBC 5.0 K/mm3 (Normal) Range: 4.4-11.0 76-Sxk-947547:27 Comprehensive Metabolic Profil Comments: Reason for Laboratory Test .[facility] [address] [place], [place], [id number] GAP 6 (Normal) Range: 5-15 CO2 29.0 mmol/L (Normal) Range: 21.0-32.0 CL 104 mmol/L (Normal) Range: 98-107 K 4.2 mmol/L (Normal) Range: 3.5-5.1 NA 139 mmol/L (Normal) Range: 136-145 T BILI 0.40 mg/dL (Normal) Range: 0.20-1.00 ALT 34 U/L (Normal) Range: 13-56 ALK P 58 U/L (Normal) Range: 45-117 AST 18 U/L (Normal) Range: 15-37 CA 9.1 mg/dL (Normal) Range: 8.5-10.1 A/G 1.0 {RATIO} (Normal) Range: 0.9-2.4 GLOB 3.9 g/dL (Normal) Range: 2.2-4.2 ALB 4.0 g/dL (Normal) Range: 3.2-5.0 T PROT 7.9 g/dL (Normal) Range: 6.4-8.2 BUN/CRE 12.1 {RATIO} (Normal) Range: 10-20 Estimated CRCL 44.21 ml/min (Normal) EST GFR - AA 72 mL/min (Normal) Comments: GFR Calc EST GFR 60 mL/min (Normal) Comments: Non- GFR Calc CREAT,SERUM 0.99 mg/dL (Normal) Range: 0.55-1.02 Comments: The validity of the calculated GFR AND GFRAA in patients over70 years has not been determined. Clinical correlation isessential. BUN 12 mg/dL (Normal) Range: 7-18 GLU 87 mg/dL (Normal) Range: 74-106 Comments: Please note revised GLUCOSE reference range vqrhoneux16/02/2018. 62-Ura-359087:55 CBC W/Diff, Automated Comments: Reason for Laboratory Test .[facility] [address] [place], [place], [id number] Absolute Lymph 1.26 {X10_3/ul} (Normal) Range: 0.83-4.51 Absolute Neut 2.9 {X10_3/uL} (Normal) Range: 2.0-7.7 IM GRAN % 0.200 % (Normal) Range: 0.0-0.9 Comments: IG% - Immature Granulocytes (promyelocytes, myelocytes andmetamyelocytes) > 1% indicates that a LEFT SHIFT is Present. BASO% 1.1 % (Abnormal) Range: 0-1 EO% 2.4 % (Normal) Range: 0-5 MONO% 7.6 % (Normal) Range: 0-10 LY% 27.2 % (Normal) Range: 19-41 NEUT% 61.5 % (Normal) Range: 47-70 MPV 10.0 fL (Normal) Range: 6.2-12.0 PLT 284 K/mm3 (Normal) Range: 150-450 RDW SD 46.1 fL (Abnormal) Range: 35.1-43.9 RDW CV 14.1 % (Normal) Range: 11.6-14.6 MCHC 32.5 {g/gl} (Normal) Range: 32-36 MCH 29.2 pg (Normal) Range: 27.0-32.0 MCV 90.0 fL (Normal) Range: 81-99 HCT 40.3 % (Normal) Range: 37-47 HGB 13.1 g/dL (Normal) Range: 12.0-15.0 RBC 4.48 {M/mm3} (Normal) Range: 4.2-5.4 WBC 4.6 K/mm3 (Normal) Range: 4.4-11.0 71-Abk-184244:55 Comprehensive Metabolic Profil Comments: Reason for Laboratory Test .[facility] [address] [facility] [place], [address] GAP 6 (Normal) Range: 5-15 CO2 28.0 mmol/L (Normal) Range: 21.0-32.0 CL 107 mmol/L (Normal) Range: 98-107 K 4.1 mmol/L (Normal) Range: 3.5-5.1 NA 141 mmol/L (Normal) Range: 136-145 T BILI 0.40 mg/dL (Normal) Range: 0.20-1.00 ALT 21 U/L (Normal) Range: 13-56 Comments: Please note revised ALT reference range sqarblyvo23/28/2018. ALK P 76 U/L (Normal) Range: 45-117 AST 17 U/L (Normal) Range: 15-37 CA 8.3 mg/dL (Abnormal) Range: 8.5-10.1 A/G 1.0 {RATIO} (Normal) Range: 0.9-2.4 GLOB 3.6 g/dL (Normal) Range: 2.2-4.2 ALB 3.7 g/dL (Normal) Range: 3.2-5.0 T PROT 7.3 g/dL (Normal) Range: 6.4-8.2 BUN/CRE 17.5 {RATIO} (Normal) Range: 10-20 Estimated CRCL 45.73 ml/min (Normal) EST GFR - AA 74 mL/min (Normal) Comments: GFR Calc EST GFR 61 mL/min (Normal) Comments: Non- GFR Calc CREAT,SERUM 0.97 mg/dL (Normal) Range: 0.55-1.02 Comments: The validity of the calculated GFR AND GFRAA in patients over70 years has not been determined. Clinical correlation isessential. BUN 17 mg/dL (Normal) Range: 7-18 GLU 98 mg/dL (Normal) Range: 74-106 Comments: Please note revised GLUCOSE reference range gxkohooza35/02/2018. 13-Svq-482673:55 Vitamin D,25 Hydroxy Comments: Reason for Laboratory Test .[facility] [address] [facility]. [place], [place], [id number] Vitamin D 25-OH 33.6 ng/mL (Normal) Range: 29.95-100.01 Comments: Vitamin D 25(OH) Status Range Deficiency <20 ng/mL (50nmol/L) Insuffciency 20 - 30 ng/mL (50 - 75 nmol/L) Sufficiency 30 - 100 ng/mL (75 - 250 nmol/L) Toxicity >100 ng/mL (>250 nmol/L) 70-Bme-285424:14 CBC W/Diff, Automated Comments: Reason for Laboratory Test [facility]ERKet[facility] [address] [facility] [place], [address] Absolute Lymph 1.49 {X10_3/ul} (Normal) Range: 0.83-4.51 Absolute Neut 3.7 {X10_3/uL} (Normal) Range: 2.0-7.7 IM GRAN % 0.200 % (Normal) Range: 0.0-0.9 Comments: IG% - Immature Granulocytes (promyelocytes, myelocytes andmetamyelocytes) > 1% indicates that a LEFT SHIFT is Present. BASO% 0.8 % (Normal) Range: 0-1 EO% 5.5 % (Abnormal) Range: 0-5 MONO% 7.8 % (Normal) Range: 0-10 LY% 24.8 % (Normal) Range: 19-41 NEUT% 60.9 % (Normal) Range: 47-70 MPV 10.0 fL (Normal) Range: 6.2-12.0 PLT 307 K/mm3 (Normal) Range: 150-450 RDW SD 44.6 fL (Abnormal) Range: 35.1-43.9 RDW CV 13.4 % (Normal) Range: 11.6-14.6 MCHC 32.7 {g/gl} (Normal) Range: 32-36 MCH 29.7 pg (Normal) Range: 27.0-32.0 MCV 91.1 fL (Normal) Range: 81-99 HCT 39.8 % (Normal) Range: 37-47 HGB 13.0 g/dL (Normal) Range: 12.0-15.0 RBC 4.37 {M/mm3} (Normal) Range: 4.2-5.4 WBC 6.0 K/mm3 (Normal) Range: 4.4-11.0 34-Gja-633182:14 Comprehensive Metabolic Profil Comments: Reason for Laboratory Test [facility] [address] [facility] [place], [place], [id number] GAP 7 (Normal) Range: 5-15 CO2 28.0 mmol/L (Normal) Range: 21.0-32.0 CL 107 mmol/L (Normal) Range: 98-107 K 4.3 mmol/L (Normal) Range: 3.5-5.1 NA 142 mmol/L (Normal) Range: 136-145 T BILI 0.30 mg/dL (Normal) Range: 0.20-1.00 ALT 20 U/L (Normal) Range: 12-78 ALK P 88 U/L (Normal) Range: 45-117 AST 15 U/L (Normal) Range: 15-37 CA 8.8 mg/dL (Normal) Range: 8.5-10.1 A/G 0.9 {RATIO} (Normal) Range: 0.9-2.4 GLOB 4.1 g/dL (Normal) Range: 2.2-4.2 ALB 3.8 g/dL (Normal) Range: 3.4-5.0 Comments: Please note revised Albumin AND Globulin reference rangeeffective 2016. T PROT 7.9 g/dL (Normal) Range: 6.4-8.2 BUN/CRE 14.6 {RATIO} (Normal) Range: 10-20 Estimated CRCL 44.09 ml/min (Normal) EST GFR - AA 75 mL/min (Normal) Comments: GFR Calc EST GFR 62 mL/min (Normal) Comments: Non- GFR Calc CREAT,SERUM 0.96 mg/dL (Normal) Range: 0.55-1.02 Comments: The validity of the calculated GFR AND GFRAA in patients over70 years has not been determined. Clinical correlation isessential. BUN 14 mg/dL (Normal) Range: 7-18 GLU 96 mg/dL (Normal) Range: 70-110 22-Psa-40830:34 Basic Metabolic Profile (BMP) Comments: [facility] [address] [place], [address] GAP 8 (Normal) Range: 5-15 CO2 25.0 mmol/L (Normal) Range: 21.0-32.0 CL 104 mmol/L (Normal) Range: 98-107 K 3.8 mmol/L (Normal) Range: 3.5-5.1 NA 137 mmol/L (Normal) Range: 136-145 CA 8.3 mg/dL (Abnormal) Range: 8.5-10.1 BUN/CRE 16.1 {RATIO} (Normal) Range: 10-20 Estimated CRCL 54.76 ml/min (Normal) EST GFR - AA 92 mL/min (Normal) Comments: GFR Calc EST GFR 76 mL/min (Normal) Comments: Non- GFR Calc CREAT,SERUM 0.81 mg/dL (Normal) Range: 0.55-1.02 Comments: The validity of the calculated GFR AND GFRAA in patients over70 years has not been determined. Clinical correlation isessential. BUN 13 mg/dL (Normal) Range: 7-18 GLU 125 mg/dL (Abnormal) Range: 70-110 Comments: Fasting Glucose result from 110 to <126 mg/dLsuggests IMPAIRED HOMEOSTASIS per A.D.A. criteria. :34 CBC W/Diff, Automated Comments: [facility] [address] [place], [place], [id number] Absolute Lymph 0.74 {X10_3/ul} (Abnormal) Range: 0.83-4.51 Absolute Neut 6.2 {X10_3/uL} (Normal) Range: 2.0-7.7 IM GRAN % 0.100 % (Normal) Range: 0.0-0.9 Comments: IG% - Immature Granulocytes (promyelocytes, myelocytes andmetamyelocytes) > 1% indicates that a LEFT SHIFT is Present. BASO% 0.1 % (Normal) Range: 0-1 EO% 0.0 % (Normal) Range: 0-5 MONO% 6.6 % (Normal) Range: 0-10 LY% 10.0 % (Abnormal) Range: 19-41 NEUT% 83.2 % (Abnormal) Range: 47-70 MPV 10.0 fL (Normal) Range: 6.2-12.0 PLT 255 K/mm3 (Normal) Range: 150-450 RDW SD 45.9 fL (Abnormal) Range: 35.1-43.9 RDW CV 13.9 % (Normal) Range: 11.6-14.6 MCHC 32.2 {g/gl} (Normal) Range: 32-36 MCH 29.2 pg (Normal) Range: 27.0-32.0 MCV 90.7 fL (Normal) Range: 81-99 HCT 37.0 % (Normal) Range: 37-47 HGB 11.9 g/dL (Abnormal) Range: 12.0-15.0 RBC 4.08 {M/mm3} (Abnormal) Range: 4.2-5.4 WBC 7.4 K/mm3 (Normal) Range: 4.4-11.0 :20 Partial Thromboplast Time Comments: [facility] [address] [place], [place], [id number] PTT 27.7 s (Normal) Range: 24.1-36.2 27-Bvs-850582:20 Prothrombin Time w/INR Comments: [facility] [address] [place], [phone] INR 1.0 (Normal) PROTIME 12.5 s (Normal) Range: 11.7-14.9 37-Gcx-031581:57 CBC-Complete Blood Cnt No Diff Comments: [facility] [address] [place], [id number] MPV 10.2 fL (Normal) Range: 6.2-12.0 PLT 300 K/mm3 (Normal) Range: 150-450 RDW SD 45.5 fL (Abnormal) Range: 35.1-43.9 RDW CV 13.8 % (Normal) Range: 11.6-14.6 MCHC 32.7 {g/gl} (Normal) Range: 32-36 MCH 29.7 pg (Normal) Range: 27.0-32.0 MCV 91.0 fL (Normal) Range: 81-99 HCT 41.3 % (Normal) Range: 37-47 HGB 13.5 g/dL (Normal) Range: 12.0-15.0 RBC 4.54 {M/mm3} (Normal) Range: 4.2-5.4 WBC 4.5 K/mm3 (Normal) Range: 4.4-11.0 69-Fqr-912644:57 Liver Profile Comments: [facility] [address] [place], [address] D BILI 0.15 mg/dL Range: 0.00-0.30 (Normal) T BILI 0.70 mg/dL Range: 0.20-1.00 (Normal) ALT 26 U/L (Normal) Range: 12-78 ALK P 71 U/L (Normal) Range: 45-117 AST 18 U/L (Normal) Range: 15-37 GLOB 3.7 g/dL (Normal) Range: 2.2-4.2 ALB 3.9 g/dL (Normal) Range: 3.4-5.0 Comments: Please note revised Albumin AND Globulin reference rangeeffective 2016. T PROT 7.6 g/dL (Normal) Range: 6.4-8.2 BREAST BIOPSY (CHOOSE SITE) See Note (Normal) Comments: [facility] [address] [place], [address] 710:35 Comments: Patient: PARUL HUNTLEY : 1950 (66/F) Acct Num: [id number] Phys: Adilson Crawford MD Unit Num: [id number] Loc: LABSPEC Specimen: [id number] Received: 01/16/17943 Spec Type: BREAST BX TISSUES TISSUES: COMMENT Immunohistochemistry ([id number]) supports the above diagnosis. ER/UT/Hlj2gdq studies are being performed on sections of tumor and the r esults from this study will be reported separately ([id number]). GROSS DESCRIPTION Received in fixative is one container labeled with the patient's name and designated right breast tissue. The s pecimen consists of multiple elongated fragments of cabrera-yellow fibroadipose tissue that in aggregate measure 2 x 0.3 x 0.1 cm. The entire specimen is submitted in one cassette. / SJ:abena 01/16/17 TC:0 CPT: 21960 HEADER OPERATION: Right breast mammotome biopsy PRE-OP DIAGNOSIS: Abnormal breast MRI TISSUE SUBMITTED: Right breast tissue ISCHEMIC TIME: 5 seconds FIXATION TIME: 33 hours MICROSCOPIC DESCRIPTION Slides are reviewed. MICROSCOPIC DIAGNOSIS Right breast, mammotome core biopsy: Invasive lobular carcinoma, nuclear grade 2 (1.5 cm in greatest length). S ee comment. SJ:abena 01/17/17 Signed Dario Bill 01/17/17 <signature on file> IMMUNOHISTOCHEMISTRY See Note (Normal) Comments: [facility] [address] [place], [address] 70:00 Comments: Patient: PARUL HUNTLEY : 1950 (66/F) Acct Num: [id number] Phys: Adilson Crawford MD Unit Num: [id number] Loc: LABSPEC Specimen: [id number] Received: 01/17/17 1256 Spec Type: IMMUNO TISSUES TISSUES: SPECIMEN INFORMATION: Tissue Source: Right breast tissue Clinical Info: Abnormal breast MRI Specimen Number: [id number] CPT code: 08870, 883 41 x4, 87579 x3 METHODOLOGY: Deparaffinized sections of prefer/formalin- fixed tissue or PAP/DQ stained slides are incubated with monoclonal/polyclonal antibodies/oligonucleotide probes. Localizati on is made via biotin free immunoperoxidase method. Appropriate controls are performed and reacted as expected. Results on target cell population are indicated in the following table: RESULTS: A NTIBODY / CLONE RESULT E-Cad (ECH-6) negative CK8 (84cvrrZ81) positive CK5-6 (D5 AND 1684) negative Ki-67 (30-9) positive , low P53 (DO-7) negative MORPHOMETRIC ANALYSIS ER (clone 6F11) >95%, strong UT (clone 16/1E2) 40% , weak to moderate Her-2Neu (clone CB11) 0 The prognostic test for HER2 is performed on formalin-fixed paraffin embedded tissue. A 3+ (positive) staining pattern is defined as intense, h omogeneous, complete, circumferential membranous staining in >10% of contiguous tumor cells. A similar weak (2+) staining pattern is interpreted as equivocal. ALEXSANDER follow-up testing is recommended fo r all equivocal cases. Positivity/negativity for ER/UT is reported if > or < 1% of the tumor cells are immuno- reactive, respectively. The ASCO/CAP criteria is used for scoring. Reference: Journal of Clinical Oncology, 2013; 31:1562-5379 AND 2009; 16:7033-8617. Duration of fixation: 33 Hrs; Sample Adequate: Yes. These assays have not been validated on decalcified tissues. Results should b einterpreted with caution given the likelihood of false negativity on decalcifiedspecimens. These tests were developed and their performance characteristics determined by [facility]. They may not have been cleared or approved by the U.S. Food and Drug Administration. The FDA has determined that such clearance or approval is not necessary. INTERPRETATION: Right jennifer ast, mammotome biopsy: Invasive lobular carcinoma, nuclear grade 2. Positive for estrogen receptors (favorable prognostic indicator). Positive for progesterone receptors (favorable prognos tic indicator). Negative for overexpression of NZJ8flc. SJ:abena 01/17/17 PHYSICIAN AND INSTITUTION [facility] [address] [place], [place] [address] Signed __ Dario Almazanin 01/17/17 <signature on file> 76-Cmw-61714:30 CREATININE FINGERSTICK Comments: [facility] [address] [place] [address] EGFR WB > 60.0000 mL/min (Normal) CREATININE WB 0.7 mg/dL (Normal) Range: 0.55-1.02 76-Snx-149470:12 MICROALBUMIN: CREATININE RATIO Comments: PATIENT NOT FASTINGPERFORMED BY: [employer] [facility] [id number] ([id number]) AND ([id number]) Alb/Creat Ratio 41.6 {mg/g_creat} (Abnormal) Range: 0.0-30.0 Albumin, Urine 26.1 ug/mL (Normal) Creatinine, Urine 62.7 mg/dL (Normal) 07-Qgk-151730:12 URINALYSIS ([id number]) Comments: PATIENT NOT FASTINGPERFORMED BY: [employer] [facility] [id number]; patient was treated with Cipro Microscopic Examination See below: (Normal) Comments: Microscopic was indicated and was performed. Nitrite, Urine Positive (Abnormal) Urobilinogen,Semi-Qn 1.0 mg/dL (Normal) Range: 0.2-1.0 Bilirubin Negative (Normal) Occult Blood Trace (Abnormal) Ketones Negative (Normal) Glucose Negative (Normal) Protein Negative (Normal) WBC Esterase 3+ (Abnormal) Appearance Clear (Normal) Urine-Color Yellow (Normal) pH 6.5 (Normal) Range: 5.0-7.5 Specific [place] 1.011 (Normal) Range: 1.005-1.030 77-Llr-370100:12 Metabolic Panel, Comprehensive Comments: PATIENT NOT FASTINGPERFORMED BY: [employer] [address] [facility] [id number] ([id number]) ALT (SGPT) 16 [iU]/L (Normal) Range: 0-32 AST (SGOT) 18 [iU]/L (Normal) Range: 0-40 Alkaline Phosphatase 55 [iU]/L (Normal) Range: 39-117 Bilirubin, Total 0.4 mg/dL (Normal) Range: 0.0-1.2 A/G Ratio 1.6 (Normal) Range: 1.2-2.2 Globulin, Total 2.7 g/dL (Normal) Range: 1.5-4.5 Albumin 4.3 g/dL (Normal) Range: 3.6-4.8 Protein, Total 7.0 g/dL (Normal) Range: 6.0-8.5 Calcium 9.0 mg/dL (Normal) Range: 8.7-10.3 Carbon Dioxide, Total 22 mmol/L (Normal) Range: 20-29 Chloride 104 mmol/L (Normal) Range: 96-106 Potassium 4.1 mmol/L (Normal) Range: 3.5-5.2 Sodium 140 mmol/L (Normal) Range: 134-144 BUN/Creatinine Ratio 13 (Normal) Range: 12-28 eGFR If Africn Am 77 mL/min/1.73 (Normal) eGFR If NonAfricn Am 67 mL/min/1.73 (Normal) Creatinine 0.90 mg/dL (Normal) Range: 0.57-1.00 BUN 12 mg/dL (Normal) Range: 8-27 Glucose 94 mg/dL (Normal) Range: 65-99 49-Ufz-693581:12 CBC WITH MANUAL DIFF Comments: PATIENT NOT FASTINGPERFORMED BY: LabCoVirtua VoorheesLsajua1113 [facility] [id number] Information: NURSE DRAW (05552) Immature Grans (Abs) 0.0 {x10E3/uL} (Normal) Range: 0.0-0.1 Immature Granulocytes 0 % (Normal) Baso (Absolute) 0.0 {x10E3/uL} (Normal) Range: 0.0-0.2 Eos (Absolute) 0.1 {x10E3/uL} (Normal) Range: 0.0-0.4 Monocytes(Absolute) 0.4 {x10E3/uL} (Normal) Range: 0.1-0.9 Lymphs (Absolute) 1.4 {x10E3/uL} (Normal) Range: 0.7-3.1 Neutrophils (Absolute) 5.3 {x10E3/uL} (Normal) Range: 1.4-7.0 Basos 0 % (Normal) Eos 1 % (Normal) Monocytes 6 % (Normal) Lymphs 19 % (Normal) Neutrophils 74 % (Normal) Platelets 311 {x10E3/uL} (Normal) Range: 150-379 RDW 14.4 % (Normal) Range: 12.3-15.4 MCHC 32.0 g/dL (Normal) Range: 31.5-35.7 MCH 29.3 pg (Normal) Range: 26.6-33.0 MCV 91 fL (Normal) Range: 79-97 Hematocrit 40.6 % (Normal) Range: 34.0-46.6 Hemoglobin 13.0 g/dL (Normal) Range: 11.1-15.9 RBC 4.44 {x10E6/uL} (Normal) Range: 3.77-5.28 WBC 7.3 {x10E3/uL} (Normal) Range: 3.4-10.8 0-Gcm-049945:00 Pathology Report Comments: PERFORMED BY: CYT [facility] [place] Cyto Woqlx32413 [facility] [id number] BY: [facility] Dermatopathology Tgtlwce275 [address] [id number] Information: [id number] See MATER Comments: Material submitted: .RIGHT BOTTOM FOOT PUNCHClinician provided ICD-10:V07.9Clinical history: .VERRUCOUS LESION Note (Normal) Diagnosis:ACRAL SKIN FRAGMENT WITH EPIDERMAL ACANTHOSIS, HYPERKERATOSIS,AND PARAKERATOSIS, SEE COMMENT BELOW..COMMENT:THE HISTOPATHOLOGIC CHANGE S NOTED ARE NOT FULLY DIAGNOSTIC. THISMAY REPRESENT A TRAUMATIZED SENESCENT VERRUCA OR CLAVUS. I HAVEALSO CONSIDERED THE POSSIBILITY OF A POROKERATOSIS INVOLVING ANACRAL LOCATION. THERE IS NO EVIDENCE O F MALIGNANCY IN THESESECTIONS. CLINICOPATHOLOGIC CORRELATION IS RECOMMENDED.CASSANDRA/12/12/2016Electronically signed: .Erika Bright MD, DermatopathologistGross description: .RECEIVED IN FORMALIN LABELED PARUL HUNTLEY AND DESIGNATEDBIOPSY FOOT IS A 0.6 CM PU [facility] BIOPSY OF CORNIFIED SKIN HAVING ADERMIS OF 0.4 CM. ECCENTRICALLY LOCATED ON THE SKIN SURFACE IS A0.4 CM IN DIAMETER FIRM YELLOW SLIGHTLY RAISED AREA. THE DERMISIS MARKED WITH RED INK AND THE SPECIME N IS BISECTED AND SUBMITTEDIN TOTO IN ONE BLOCK.LIT/VINPathologist provided ICD-10:B07.9CPT .299578 3 COLON See Note Comments: [facility] Zlfcugpmcd2457 [facility] [place], [address] 1 BIOPS (Normal) Comments: Patient: PARUL HUNTLEY : 1950 (66/F) Acct Num: [id number] Phys: Junior Boyle Unit Num: [id number] Loc: LABSPEC Specimen: [id number] Received: 10/31/161606 Spec Ty - Y pe: COLON BX TISSUES TISSUES: GROSS DESCRIPTION Received in fixative is one container labeled with the patient's name and designated right colon polyp biopsies. The specimen consis A (CALI ts of multiple irregular fragments of light cabrera soft tissue that in aggregate measure 0.3 x 0.3x 0.1 cm. The specimen is totally submitted in one cassette. / Ramonita 11/01/16 TC:1 CPT: 99431 HEADER u SE OPERATION: Colonoscopy with biopsies PRE-OP DIAGNOSIS: Screening TISSUE SUBMITTED: Right colon polyp biopsies - rule out adenoma MICROSCOPIC DESCRIPTION Slides are reviewed. MICROSCOPIC g SITE) DIAGNOSIS Right colon polyp, biopsy: Fragments of hyperplastic polyp. Ramonita 11/05/16 Signed Dario Bill 11/05/16 <signature on file> - 2 0 1 7 1 1 : 0 7 52-Jtu-981926:08 CBC with auto diff (73009) Comments: PATIENT NOT FASTINGPERFORMED BY: [employer] Gbetvj7321 [facility] HospitalOmniVecNovant [facility] [id number] Immature Grans (Abs) 0.0 {x10E3/uL} (Normal) Range: 0.0-0.1 Immature Granulocytes 0 % (Normal) Baso (Absolute) 0.0 {x10E3/uL} (Normal) Range: 0.0-0.2 Eos (Absolute) 0.0 {x10E3/uL} (Normal) Range: 0.0-0.4 Monocytes(Absolute) 0.4 {x10E3/uL} (Normal) Range: 0.1-0.9 Lymphs (Absolute) 1.3 {x10E3/uL} (Normal) Range: 0.7-3.1 Neutrophils (Absolute) 3.9 {x10E3/uL} (Normal) Range: 1.4-7.0 Basos 0 % (Normal) Eos 1 % (Normal) Monocytes 7 % (Normal) Lymphs 23 % (Normal) Neutrophils 69 % (Normal) Platelets 302 {x10E3/uL} (Normal) Range: 150-379 RDW 14.1 % (Normal) Range: 12.3-15.4 MCHC 32.6 g/dL (Normal) Range: 31.5-35.7 MCH 29.3 pg (Normal) Range: 26.6-33.0 MCV 90 fL (Normal) Range: 79-97 Hematocrit 41.1 % (Normal) Range: 34.0-46.6 Hemoglobin 13.4 g/dL (Normal) Range: 11.1-15.9 RBC 4.57 {x10E6/uL} (Normal) Range: 3.77-5.28 WBC 5.6 {x10E3/uL} (Normal) Range: 3.4-10.8 56-Xcx-791573:08 METABOLIC PANEL, COMPREHENSIVE Comments: PATIENT NOT FASTINGPERFORMED BY: Ide[employer] Villagerp TouchBistroin [place] [id number] (77748) ALT (SGPT) 13 [iU]/L (Normal) Range: 0-32 AST (SGOT) 16 [iU]/L (Normal) Range: 0-40 Alkaline Phosphatase, S 67 [iU]/L (Normal) Range: 39-117 Bilirubin, Total 0.3 mg/dL (Normal) Range: 0.0-1.2 A/G Ratio 1.5 (Normal) Range: 1.2-2.2 Globulin, Total 2.9 g/dL (Normal) Range: 1.5-4.5 Albumin, Serum 4.4 g/dL (Normal) Range: 3.6-4.8 Protein, Total, Serum 7.3 g/dL (Normal) Range: 6.0-8.5 Calcium, Serum 9.3 mg/dL (Normal) Range: 8.7-10.3 Carbon Dioxide, Total 23 mmol/L (Normal) Range: 18-29 Chloride, Serum 104 mmol/L (Normal) Range: 96-106 Potassium, Serum 4.1 mmol/L (Normal) Range: 3.5-5.2 Sodium, Serum 145 mmol/L (Abnormal) Range: 134-144 BUN/Creatinine Ratio 13 (Normal) Range: 12-28 eGFR If Africn Am 69 mL/min/1.73 (Normal) eGFR If NonAfricn Am 60 mL/min/1.73 (Normal) Creatinine, Serum 0.99 mg/dL (Normal) Range: 0.57-1.00 BUN 13 mg/dL (Normal) Range: 8-27 Glucose, Serum 93 mg/dL (Normal) Range: 65-99 35-Cxp-180428:08 CALCIFIDIOL (39461) VIT D 25 Comments: PATIENT NOT FASTINGPERFORMED BY: [facility] Rrjjov3713 [facility] [id number] Vitamin D, 25-Hydroxy 54.0 ng/mL (Normal) Range: 30.0-100.0 Comments: Vitamin D deficiency has been defined by the [place] ofMedicine and an Endocrine Society practice guideline as alevel of serum 25-OH vitamin D less than 20 ng/mL (1,2).The Endocrine Society went on to further define vitamin Dinsufficiency as a level between 21 and 29 ng/mL (2).1. IOM ([place] of Medicine). 2010. Dietary reference intakes for calcium and D. [place]: The National Academies Press.2. Angelo MF, Chin HANSEN, Katy HERRERA, et al. Evaluation, treatment, and prevention of vitamin D deficiency: an Endocrine Society clinical practice guideline. JCEM. 2010; 96(7):1911-30. :45 Anti-TPO Antibody (03469) Comments: PATIENT NOT FASTINGPERFORMED BY: [employer] Exnbyi5[address] RoadDublin [place] [id number] Thyroid Peroxidase (TPO) Ab <6 {IU/mL} (Normal) Range: 0-34 :45 T3, FREE (TRIDOTHYRONINE) (81614) Comments: PATIENT NOT FASTINGPERFORMED BY: [employer] LabSpinelabrp Qwnkpi8415 [address] RoadDublin [place] [id number] Triiodothyronine,Free,Serum 2.7 pg/mL (Normal) Range: 2.0-4.4 :45 T4, FREE (THYROXINE) (53961) Comments: PATIENT NOT FASTINGPERFORMED BY: [employer] [facility] Vhuomv6367 [address] RoadDublin [place] [id number] T4,Free(Direct) 1.22 ng/dL (Normal) Range: 0.82-1.77 :45 TSH (THYROID STIMULATING Comments: PATIENT NOT FASTINGPERFORMED BY: CB [facility] Jzrynm1278 [address] RoadDublin [place] [id number]; fu 12-19 HORMONE) (33978) TSH 2.340 {uIU/mL} (Normal) Range: 0.450-4.500 :13 CALCIFIDIOL (82453) VIT D 25 Comments: PATIENT WAS FASTINGPERFORMED BY: [employer] [facility] Lxzgct1435 [address] RoadDublin [place] [id number] Vitamin D, 25-Hydroxy 43.6 ng/mL (Normal) Range: 30.0-100.0 Comments: Vitamin D deficiency has been defined by the [place] of[place]icine and an Endocrine Society practice guideline as alevel of serum 25-OH vitamin D less than 20 ng/mL (1,2).The Endocrine Society went on to further define vitamin Dinsufficiency as a level between 21 and 29 ng/mL (2).1. IOM ([place] of [employer]). 2010. Dietary reference intakes for calcium and D. [place]: The National Academies Press.2. Angelo MF, Chin HANSEN, Katy HERRERA, et al. Evaluation, treatment, and prevention of vitamin D deficiency: an Endocrine Society clinical practice guideline. JCEM. 2010; 96(7):1911-30. :13 URINALYSIS (09658) Comments: PATIENT WAS FASTINGPERFORMED BY: [place] [id number] Microscopic Examination MICNIP (Normal) Comments: Microscopic not indicated and not performed. Nitrite, Urine Negative (Normal) Urobilinogen,Semi-Qn 0.2 mg/dL (Normal) Range: 0.2-1.0 Bilirubin Negative (Normal) Occult Blood Negative (Normal) Ketones Negative (Normal) Glucose Negative (Normal) Protein Negative (Normal) WBC Esterase Negative (Normal) Appearance Clear (Normal) Urine-Color Yellow (Normal) pH 7.0 (Normal) Range: 5.0-7.5 Specific [place] 1.021 (Normal) Range: 1.005-1.030 :13 Metabolic Panel, Comprehensive Comments: PATIENT WAS FASTINGPERFORMED BY: Mettl6370 [facility]SoftNov[facility] [id number] (17991) ALT (SGPT) 23 [iU]/L (Normal) Range: 0-32 AST (SGOT) 20 [iU]/L (Normal) Range: 0-40 Alkaline Phosphatase, S 66 [iU]/L (Normal) Range: 39-117 Bilirubin, Total 0.4 mg/dL (Normal) Range: 0.0-1.2 A/G Ratio 1.8 (Normal) Range: 1.1-2.5 Globulin, Total 2.5 g/dL (Normal) Range: 1.5-4.5 Albumin, Serum 4.4 g/dL (Normal) Range: 3.6-4.8 Protein, Total, Serum 6.9 g/dL (Normal) Range: 6.0-8.5 Calcium, Serum 9.3 mg/dL (Normal) Range: 8.7-10.3 Carbon Dioxide, Total 24 mmol/L (Normal) Range: 18-29 Chloride, Serum 104 mmol/L (Normal) Range: 97-108 Potassium, Serum 4.2 mmol/L (Normal) Range: 3.5-5.2 Sodium, Serum 143 mmol/L (Normal) Range: 134-144 BUN/Creatinine Ratio 16 (Normal) Range: 11-26 eGFR If Africn Am 80 mL/min/1.73 (Normal) eGFR If NonAfricn Am 70 mL/min/1.73 (Normal) Creatinine, Serum 0.88 mg/dL (Normal) Range: 0.57-1.00 BUN 14 mg/dL (Normal) Range: 8-27 Glucose, Serum 84 mg/dL (Normal) Range: 65-99 :13 Lipid Panel (34034) Comments: PATIENT WAS FASTINGPERFORMED BY: [facility]Nov[facility] [id number] LDL/HDL Ratio 1.6 {ratio_units} (Normal) Range: 0.0-3.2 Comments: LDL/HDL Ratio Men Women 1/2 Avg.Risk 1.0 1.5 Av g.Risk 3.6 3.2 2X Avg.Risk 6.2 5.0 3X Avg.Risk 8.0 6.1 LDL Cholesterol Calc 163 mg/dL (Abnormal) Range: 0-99 VLDL Cholesterol Esau 10 mg/dL (Normal) Range: 5-40 HDL Cholesterol 101 mg/dL (Normal) Comments: According to ATP-III Guidelines, HDL-C >59 mg/dL is considered anegative risk factor for CHD. Triglycerides 52 mg/dL (Normal) Range: 0-149 Cholesterol, Total 274 mg/dL (Abnormal) Range: 100-199 :13 CBC WITH MANUAL DIFF Comments: PATIENT WAS FASTINGPERFORMED BY: [address] [facility] [id number] Information: [id number],[id number]; [address] ([address]) Immature Grans (Abs) 0.0 {x10E3/uL} (Normal) Range: 0.0-0.1 Immature Granulocytes 0 % (Normal) Baso (Absolute) 0.1 {x10E3/uL} (Normal) Range: 0.0-0.2 Eos (Absolute) 0.1 {x10E3/uL} (Normal) Range: 0.0-0.4 Monocytes(Absolute) 0.3 {x10E3/uL} (Normal) Range: 0.1-0.9 Lymphs (Absolute) 1.8 {x10E3/uL} (Normal) Range: 0.7-3.1 Neutrophils (Absolute) 2.3 {x10E3/uL} (Normal) Range: 1.4-7.0 Basos 1 % (Normal) Eos 3 % (Normal) Monocytes 7 % (Normal) Lymphs 39 % (Normal) Neutrophils 50 % (Normal) Platelets 314 {x10E3/uL} (Normal) Range: 150-379 RDW 13.7 % (Normal) Range: 12.3-15.4 MCHC 32.0 g/dL (Normal) Range: 31.5-35.7 MCH 29.2 pg (Normal) Range: 26.6-33.0 MCV 91 fL (Normal) Range: 79-97 Hematocrit 39.7 % (Normal) Range: 34.0-46.6 Hemoglobin 12.7 g/dL (Normal) Range: 11.1-15.9 RBC 4.35 {x10E6/uL} (Normal) Range: 3.77-5.28 WBC 4.6 {x10E3/uL} (Normal) Range: 3.4-10.8 :35 URINE BOOGIE CULTURE-KATHRYN COL Comments: PATIENT NOT FASTINGPERFORMED BY: LabCoVirtua VoorheesAagdkf4289 [facility] [id number] Information: SRC:UR [id number] COUNT (55283) Result 1 NG36 (Normal) Comments: No growth in 36 - 48 hours. Urine Culture,Comprehensive Final report (Normal) 8-Djf-480614:50 Urinalysis, Office (50621) UA - LEUKOCYTE ESTERASE Small (Normal) UA - NITRITE Negative (Normal) URINE UROBILINGN KATHRYN TIMED Normal mg/dL (Normal) UA - PROTEIN Negative mg/dL (Normal) UA - PH 6 (Abnormal) UA - BLOOD Hemolyzed Trace (Normal) UA - SPECIFIC GRAVITY 1.020 (Normal) UA - KETONES Negative mg/dL (Normal) UA - BILIRUBIN Negative (Normal) UA - GLUCOSE Negative (Normal) 59-Ras-008873:13 Miscellaneous Lab Procedure Comments: Results faxed on 11/22/14- 5954 by JODY .Comments: [id number] PAPTest(s) Ordered: [id number] PAPTest performed at:[facility] Btnz[address]pgx[address] [place], [place] [address] [facility] LAB TEST (Normal) Comments: Scanned image report available in EMR 15-Yww-557669:08 CBC With Differential/Platelet Comments: PATIENT WAS FASTINGPERFORMED BY: LabCoVirtua VoorheesJztler7818 [facility] [id number]; [facility] fu - will review with patient then Immature Grans (Abs) 0.0 {x10E3/uL} (Normal) Range: 0.0-0.1 Immature Granulocytes 0 % (Normal) Baso (Absolute) 0.1 {x10E3/uL} (Normal) Range: 0.0-0.2 Eos (Absolute) 0.2 {x10E3/uL} (Normal) Range: 0.0-0.4 Monocytes(Absolute) 0.4 {x10E3/uL} (Normal) Range: 0.1-0.9 Lymphs (Absolute) 1.4 {x10E3/uL} (Normal) Range: 0.7-3.1 Neutrophils (Absolute) 3.6 {x10E3/uL} (Normal) Range: 1.4-7.0 Basos 1 % (Normal) Eos 3 % (Normal) Monocytes 8 % (Normal) Lymphs 24 % (Normal) Neutrophils 64 % (Normal) Platelets 300 {x10E3/uL} (Normal) Range: 150-379 RDW 13.7 % (Normal) Range: 12.3-15.4 MCHC 32.3 g/dL (Normal) Range: 31.5-35.7 MCH 29.4 pg (Normal) Range: 26.6-33.0 MCV 91 fL (Normal) Range: 79-97 Hematocrit 39.6 % (Normal) Range: 34.0-46.6 Hemoglobin 12.8 g/dL (Normal) Range: 11.1-15.9 RBC 4.35 {x10E6/uL} (Normal) Range: 3.77-5.28 WBC 5.6 {x10E3/uL} (Normal) Range: 3.4-10.8 :08 Comp. Metabolic Panel (14) Comments: PATIENT WAS FASTINGPERFORMED BY: [address] [facility] [id number] ALT (SGPT) 12 [iU]/L (Normal) Range: 0-32 AST (SGOT) 13 [iU]/L (Normal) Range: 0-40 Alkaline Phosphatase, S 72 [iU]/L (Normal) Range: 39-117 Bilirubin, Total 0.4 mg/dL (Normal) Range: 0.0-1.2 A/G Ratio 1.9 (Normal) Range: 1.1-2.5 Globulin, Total 2.3 g/dL (Normal) Range: 1.5-4.5 Albumin, Serum 4.4 g/dL (Normal) Range: 3.6-4.8 Protein, Total, Serum 6.7 g/dL (Normal) Range: 6.0-8.5 Calcium, Serum 9.2 mg/dL (Normal) Range: 8.7-10.3 Carbon Dioxide, Total 24 mmol/L (Normal) Range: 18-29 Chloride, Serum 102 mmol/L (Normal) Range: 97-108 Potassium, Serum 4.7 mmol/L (Normal) Range: 3.5-5.2 Sodium, Serum 141 mmol/L (Normal) Range: 134-144 BUN/Creatinine Ratio 15 (Normal) Range: 11-26 eGFR If Africn Am 72 mL/min/1.73 (Normal) eGFR If NonAfricn Am 62 mL/min/1.73 (Normal) Creatinine, Serum 0.97 mg/dL (Normal) Range: 0.57-1.00 BUN 15 mg/dL (Normal) Range: 8-27 Glucose, Serum 84 mg/dL (Normal) Range: 65-99 24-Bio-825589:08 Lipid Panel With LDL/HDL Comments: PATIENT WAS FASTINGPERFORMED BY: [address] Cam[facility]illoGiftlyNovant [facility] [id number] Ratio LDL/HDL Ratio 1.3 {ratio_units} Range: 0.0-3.2 (Normal) Comments: LDL/HDL Ratio Men Women 1/2 Avg.Risk 1.0 1.5 Av g.Risk 3.6 3.2 2X Avg.Risk 6.2 5.0 3X Avg.Risk 8.0 6.1 LDL Cholesterol Calc 138 mg/dL (Abnormal) Range: 0-99 VLDL Cholesterol Esau 12 mg/dL (Normal) Range: 5-40 HDL Cholesterol 110 mg/dL (Normal) Comments: According to ATP-III Guidelines, HDL-C >59 mg/dL is considered anegative risk factor for CHD. Triglycerides 59 mg/dL (Normal) Range: 0-149 Cholesterol, Total 260 mg/dL (Abnormal) Range: 100-199 29-Sep-2014 Vitamin D, 25-Hydroxy 40.5 ng/mL (Normal) Comments: PATIENT WAS FASTINGPERFORMED BY: [address] [facility] [id number] 11:08 Range: 30.0-100.0 Comments: Vitamin D deficiency has been defined by the [place] of[place]icine and an Endocrine Society practice guideline as alevel of serum 25-OH vitamin D less than 20 ng/mL (1,2).The Endocrine Society went on to further define vitamin Dinsufficiency as a level between 21 and 29 ng/mL (2).1. IOM ([place] of [employer]). 2010. Dietary reference intakes for calcium and D. [place]: The National Academies Press.2. Angelo MF, Chin [place], Katy HERRERA, et al. Evaluation, treatment, and prevention of vitamin D deficiency: an Endocrine Society clinical practice guideline. JCEM. 2010; 96(7):1911-30. 77-Efj-09504:36 METABOLIC PANEL, COMPREHENSIVE Comments: PATIENT WAS FASTINGPERFORMED BY: [employer] LabCoIdooble70 [facility] [id number] (84081) ALT (SGPT) 13 [iU]/L (Normal) Range: 0-32 AST (SGOT) 15 [iU]/L (Normal) Range: 0-40 Alkaline Phosphatase, S 70 [iU]/L (Normal) Range: 39-117 Bilirubin, Total 0.4 mg/dL (Normal) Range: 0.0-1.2 A/G Ratio 1.9 (Normal) Range: 1.1-2.5 Globulin, Total 2.2 g/dL (Normal) Range: 1.5-4.5 Albumin, Serum 4.2 g/dL (Normal) Range: 3.6-4.8 Protein, Total, Serum 6.4 g/dL (Normal) Range: 6.0-8.5 Calcium, Serum 9.4 mg/dL (Normal) Range: 8.6-10.2 Carbon Dioxide, Total 23 mmol/L (Normal) Range: 18-29 Chloride, Serum 105 mmol/L (Normal) Range: 97-108 Potassium, Serum 4.3 mmol/L (Normal) Range: 3.5-5.2 Sodium, Serum 141 mmol/L (Normal) Range: 134-144 BUN/Creatinine Ratio 15 (Normal) Range: 11-26 eGFR If Africn Am 73 mL/min/1.73 (Normal) eGFR If NonAfricn Am 64 mL/min/1.73 (Normal) Creatinine, Serum 0.96 mg/dL (Normal) Range: 0.57-1.00 BUN 14 mg/dL (Normal) Range: 8-27 Glucose, Serum 85 mg/dL (Normal) Range: 65-99 :36 LIPID PANEL (70794) Comments: PATIENT WAS FASTINGPERFORMED BY: Mettl[address] [facility] [id number] LDL/HDL Ratio 1.2 {ratio_units} (Normal) Range: 0.0-3.2 LDL Cholesterol Calc 120 mg/dL (Abnormal) Range: 0-99 VLDL Cholesterol Esau 16 mg/dL (Normal) Range: 5-40 HDL Cholesterol 103 mg/dL (Normal) Comments: According to ATP-III Guidelines, HDL-C >59 mg/dL is considered anegative risk factor for CHD. Triglycerides 81 mg/dL (Normal) Range: 0-149 Cholesterol, Total 239 mg/dL (Abnormal) Range: 100-199 :36 CBC WITH MANUAL DIFF Comments: PATIENT WAS FASTINGPERFORMED BY: Mettl6[address] [facility] [id number] Information: [id number] (06536) Immature Grans (Abs) 0.0 {x10E3/uL} (Normal) Range: 0.0-0.1 Baso (Absolute) 0.0 {x10E3/uL} (Normal) Range: 0.0-0.2 Immature Granulocytes 0 % (Normal) Range: 0-2 Eos (Absolute) 0.1 {x10E3/uL} (Normal) Range: 0.0-0.4 Monocytes(Absolute) 0.3 {x10E3/uL} (Normal) Range: 0.1-0.9 Lymphs (Absolute) 1.7 {x10E3/uL} (Normal) Range: 0.7-3.1 Neutrophils (Absolute) 2.6 {x10E3/uL} (Normal) Range: 1.4-7.0 Basos 1 % (Normal) Range: 0-3 Eos 3 % (Normal) Range: 0-5 Monocytes 7 % (Normal) Range: 4-12 Lymphs 36 % (Normal) Range: 14-46 Neutrophils 53 % (Normal) Range: 40-74 Platelets 295 {x10E3/uL} (Normal) Range: 150-379 RDW 14.0 % (Normal) Range: 12.3-15.4 MCHC 32.1 g/dL (Normal) Range: 31.5-35.7 MCH 29.3 pg (Normal) Range: 26.6-33.0 MCV 91 fL (Normal) Range: 79-97 Hematocrit 40.5 % (Normal) Range: 34.0-46.6 Hemoglobin 13.0 g/dL (Normal) Range: 11.1-15.9 RBC 4.43 {x10E6/uL} (Normal) Range: 3.77-5.28 WBC 4.8 {x10E3/uL} (Normal) Range: 3.4-10.8 14-Mor-90982:36 CALCIFIDIOL (19147) VIT D 25 Comments: PATIENT WAS FASTINGPERFORMED BY: LabCoVirtua VoorheesBsgtbz1707 [facility] [id number] Vitamin D, 25-Hydroxy 45.3 ng/mL (Normal) Range: 30.0-100.0 Comments: Vitamin D deficiency has been defined by the [place] of[place]icine and an Endocrine Society practice guideline as alevel of serum 25-OH vitamin D less than 20 ng/mL (1,2).The Endocrine Society went on to further define vitamin Dinsufficiency as a level between 21 and 29 ng/mL (2).1. IOM ([place] of [employer]). 2010. Dietary reference intakes for calcium and D. [place]: The National Academies Press.2. Angelo MF, Chin HANSEN, Katy HERRERA, et al. Evaluation, treatment, and prevention of vitamin D deficiency: an Endocrine Society clinical practice guideline. JCEM. 2010; 96(7):1911-30. 31-Fvk-699617:06 URINE BOOGIE CULTURE-KATHRYN COL Comments: PATIENT NOT FASTINGPERFORMED BY: [employer] Wplhwn4043 [facility] [id number] Information: SRC:UR [id number] COUNT (76645) Result 1 NG36 (Normal) Comments: No growth in 36 - 48 hours. Urine Culture,Comprehensive Final report (Normal) 16-Yjn-771703:05 Urinalysis, Office (14643) UA - BILIRUBIN Negative (Normal) UA - BLOOD Non Hemolyzed Trace (Normal) UA - GLUCOSE Negative (Normal) UA - KETONES Negative mg/dL (Normal) UA - LEUKOCYTE ESTERASE Negative (Normal) UA - NITRITE Negative (Normal) UA - PH 7.5 (Normal) UA - PROTEIN Trace mg/dL (Normal) UA - SPECIFIC GRAVITY 1.015 (Normal) URINE UROBILINGN KATHRYN TIMED 2 mg/dL (Normal) 42-Krn-70863:06 Metabolic Panel, Comments: PATIENT WAS FASTINGPERFORMED BY: [employer] Ywhozr9514 [facility] [id number] Information: [id number] Comprehensive (89805) ALT (SGPT) 16 [iU]/L (Normal) Range: 0-32 AST (SGOT) 17 [iU]/L (Normal) Range: 0-40 Alkaline Phosphatase, S 58 [iU]/L (Normal) Range: 25-165 Bilirubin, Total 0.5 mg/dL (Normal) Range: 0.0-1.2 A/G Ratio 1.7 (Normal) Range: 1.1-2.5 Globulin, Total 2.6 g/dL (Normal) Range: 1.5-4.5 Albumin, Serum 4.4 g/dL (Normal) Range: 3.6-4.8 Protein, Total, Serum 7.0 g/dL (Normal) Range: 6.0-8.5 Calcium, Serum 8.9 mg/dL (Normal) Range: 8.6-10.2 Carbon Dioxide, Total 22 mmol/L (Normal) Range: 20-32 Chloride, Serum 106 mmol/L (Normal) Range: 97-108 Potassium, Serum 4.1 mmol/L (Normal) Range: 3.5-5.2 Sodium, Serum 140 mmol/L (Normal) Range: 134-144 BUN/Creatinine Ratio 14 (Normal) Range: 11-26 eGFR If Africn Am 80 mL/min/1.73 (Normal) eGFR If NonAfricn Am 70 mL/min/1.73 (Normal) Creatinine, Serum 0.90 mg/dL (Normal) Range: 0.57-1.00 BUN 13 mg/dL (Normal) Range: 8-27 Glucose, Serum 89 mg/dL (Normal) Range: 65-99 :06 Lipid Panel (29792) Comments: PATIENT WAS FASTINGPERFORMED BY: [facility] [id number] LDL/HDL Ratio 1.2 {ratio_units} (Normal) Range: 0.0-3.2 LDL Cholesterol Calc 131 mg/dL (Abnormal) Range: 0-99 VLDL Cholesterol Esau 11 mg/dL (Normal) Range: 5-40 HDL Cholesterol 107 mg/dL (Normal) Comments: According to ATP-III Guidelines, HDL-C >59 mg/dL is considered anegative risk factor for CHD. Cholesterol, Total 249 mg/dL (Abnormal) Range: 100-199 Triglycerides 57 mg/dL (Normal) Range: 0-149 :06 Homocysteine, Plasma (27370) Comments: PATIENT WAS FASTINGPERFORMED BY: [facility] [id number] Homocyst(e)ine, Plasma 7.4 umol/L (Normal) Range: 0.0-15.0 :06 CALCIFIDIOL ([id number]) VIT D 25 Comments: PATIENT WAS FASTINGPERFORMED BY: [id number] [id number] Vitamin D, 25-Hydroxy 24.9 ng/mL (Abnormal) Range: 30.0-100.0 Comments: Vitamin D deficiency has been defined by the [place] of[employer]icine and an Endocrine Society practice guideline as alevel of serum 25-OH vitamin D less than 20 ng/mL (1,2).The Endocrine Society went on to further define vitamin Dinsufficiency as a level between 21 and 29 ng/mL (2).1. IOM ([place] of [employer]). 2010. Dietary reference intakes for calcium and D. [place]: The National AcademM[employer].2. Angelo MF, Chin HANSEN, Katy HERRERA, et al. Evaluation, treatment, and prevention of vitamin D deficiency: an Endocrine Society clinical practice guideline. JCEM. 2010; 96(7):1911-30. [id number] Microscopic Examination Comments: PATIENT WAS FASTINGPERFORMED BY: [facility] Vqqpbs9400 [facility] [id number] Bacteria Few (Normal) Mucus Threads Present (Normal) Epithelial Cells (non renal) >10 {/hpf} (Abnormal) Range: 0 - 10 RBC 0-3 {/hpf} (Normal) Range: 0 - 3 WBC 11-30 {/hpf} (Abnormal) Range: 0 - 5 27-Bzw-23620:51 BILAT SCRN DIGITAL & CAD Radiology Report See Note (Normal) Comments: MAMMOGRAPHY - BILATERAL SCREENING REASON FOR EXAM: Female, 61 years old. Routine annual screeningexamination. PERTINENT HISTORY: No family history of breast cancer. History ofright-sided excisiona l biopsy for suspicious area. This was normalhowever. Lymph nodes removed two years ago. TECHNIQUE: Digital examination. Mediolateral oblique (MLO) andcraniocaudad (CC) views of both breasts were o btained. CAD: UtilizedCOMPARISON: August 15, 2010. FINDINGS:The breast composition is heterogeneously dense which does lowermammographic sensitivity. There are no dominant masses or suspicious calcifica tions. No other significant abnormalities are identified. There is nosignificantinterval change. IMPRESSION:Stable bilateral screening mammogram. Yearly follow-up recommended. (A) ASSESSMENT CATEGOR Y:BIRADS Category 2: Benign finding(s). A letter regarding these resultswill be sent to the patient by the facility within 30 days. Approximately 10% of breast cancers are not detected by mammography. Anormal mammogram should not delay biopsy of a clinically suspiciousabnormality. Signed:Rajat Walton D.O.August 20, 2011 at 2:53:02 PM [phone] Signed BB/BB If you are the refe rring physician and would like to consult with theradiologist who provided this interpretation, please contact Ye Jarvis at . If this radiologist is unavailable, youwill be direc huong to another radiologist to assist. If you are a patient with a question regarding this report, pleasecontactyour referring physician directly. Professional Interpretation Provided By: [facility] , Dictated on 08/20/11 1024 by Rajat Walton DOTranscribed on 08/20/112053 by ITS IMPORTSign by Rajat Walton DO on 08/20/112054 Sign by: Rajat Walton DO 86-Aii-10856:51 DEXA BONE DENSITY STUDY (HP) Radiology Report See Note (Normal) Comments: PROCEDURE: DUAL ENERGY X-RAY ABSORPTIOMETRY / DEXA. REASON FOR EXAM: Female, 61 years old. Post menopause TECHNIQUE: Bone Mineral Density (BMD) measurements of lumbar spine andbilatera l hips were obtained. COMPARISON: Studies dating back through August 09, 2008. FINDINGS: Lumbar Spine (L1-L4): g/cm2 (0.881) / T-score (-2.5) / Z-score (-1.3)Left Femur Total: g/cm2 (0.795) / T-score (-1.7) / Z-score (-0.8)Right Femur Total: g/cm2 (0.797) / T-score (-1.7) / Z-score -0.7) Additional Abnormal T-Scores: None. The T-Scores on the most recent prior examination were: Lumbar Spine (L1-L4) : 0.7%.Left Femur Total: -9.9%.Right Femur Total: -5.7%. IMPRESSION:The patient is considered normal, as outlined below according to WorldHealth Organization (WHO) criteria. Fracture risk is moderately high.There is low bone mass/osteopenia in this is in the lower range justaboveosteoporosis. Reference Information:The T-score is the number of standard deviations above or be low thestandard which is normal for young adults at their peak bone mineraldensity. The World Health Organization (WHO) interprets the T-scores asfollows: Above - 1 Normal bone densityBetween - 1 and -2.5 OsteopeniaEqual to / or below -2.5 Osteoporosis As a practical clinical guideline, osteopenia may be graded as follows:Mild -1 through - 1.5Moderate -1.6 through -2.0Severe -2.1 through -2.4 The Z-score is the number of standard deviations above or below age- matchedcontrols. A Z-score of less than -1.5 would be considered abnormal. References:1. NIH Osteoporosis and Related Bone Dise ases http://www.osteo.org2. International Society for Clinical Densitometry http://www.iscd.org3. National Osteoporosis Foundation http://www.nof.org Signed:Rajat Walton D.O.August 22, 2011 at 12:09: 10 PM [phone] Signed BB/BB If you are the referring physician and would like to consult with theradiologist who provided this interpretation, please contact Ye Jarvis a t . If this radiologist is unavailable, youwill be directed to another radiologist to assist. If you are a patient with a question regarding this report, pleasecontactyour referring physic shaun directly. Professional Interpretation Provided By: [employer], Phone , Dictated on 08/20/11 0957 by Rajat Walton DOTranscribed on 08/22/11 1501 by ITS IMPORTSign by Rajat Walton DO on 08/22/11 150 Sign by: Rajat Walton DO 84-Rpv-084608:19 Renal function Panel Comments: PATIENT NOT FASTINGPERFORMED BY: [facility]6370 [facility] [id number] Information: [id number] ([id number]) Albumin, Serum 4.4 g/dL (Normal) Range: 3.5-5.5 Phosphorus, Serum 3.4 mg/dL (Normal) Range: 2.5-4.5 Calcium, Serum 9.6 mg/dL (Normal) Range: 8.7-10.2 Carbon Dioxide, Total 23 mmol/L (Normal) Range: 20-32 Chloride, Serum 104 mmol/L (Normal) Range: 97-108 Potassium, Serum 4.2 mmol/L (Normal) Range: 3.5-5.2 Sodium, Serum 143 mmol/L (Normal) Range: 134-144 BUN/Creatinine Ratio 11 (Normal) Range: 9-23 eGFR If Africn Am 91 mL/min/1.73 (Normal) Comments: Note: A persistent eGFR <60 mL/min/1.73 m2 (3 months or more) mayindicate chronic kidney disease. An eGFR >59 mL/min/1.73 m2 with anelevated urine protein also may indicate chronic kidney disease.Calculated using CKD-EPI formula. eGFR If NonAfricn Am 79 mL/min/1.73 (Normal) Creatinine, Serum 0.82 mg/dL (Normal) Range: 0.57-1.00 BUN 9 mg/dL (Normal) Range: 6-24 Glucose, Serum 84 mg/dL (Normal) Range: 65-99 74-Ado-177550:00 URINALYSIS, W/ MICRO ([id number]) Comments: PATIENT WAS FASTINGPERFORMED BY: LabCoVirtua VoorheesMczpll5273 [facility] [id number] Microscopic Examination See below: (Normal) Nitrite, Urine Negative (Normal) Urobilinogen,Semi-Qn 0.2 mg/dL (Normal) Range: 0.0-1.9 Bilirubin Negative (Normal) Occult Blood Negative (Normal) Ketones Negative (Normal) Glucose Negative (Normal) Protein Negative (Normal) WBC Esterase 2+ (Abnormal) Appearance Clear (Normal) Urine-Color Yellow (Normal) pH 7.0 (Normal) Range: 5.0-7.5 Specific [place] 1.012 (Normal) Range: 1.005-1.030 00-Lsu-299256:00 METABOLIC PANEL, COMPREHENSIVE Comments: PATIENT WAS FASTINGPERFORMED BY: [address] [facility] [id number] ([id number]) ALT (SGPT) 17 [iU]/L (Normal) Range: 0-40 AST (SGOT) 16 [iU]/L (Normal) Range: 0-40 Alkaline Phosphatase, S 67 [iU]/L (Normal) Range: 25-165 Bilirubin, Total 0.4 mg/dL (Normal) Range: 0.0-1.2 A/G Ratio 1.8 (Normal) Range: 1.1-2.5 Globulin, Total 2.4 g/dL (Normal) Range: 1.5-4.5 Albumin, Serum 4.2 g/dL (Normal) Range: 3.6-4.8 Protein, Total, Serum 6.6 g/dL (Normal) Range: 6.0-8.5 Calcium, Serum 9.2 mg/dL (Normal) Range: 8.6-10.2 Carbon Dioxide, Total 22 mmol/L (Normal) Range: 20-32 Chloride, Serum 104 mmol/L (Normal) Range: 97-108 Potassium, Serum 4.4 mmol/L (Normal) Range: 3.5-5.2 Sodium, Serum 141 mmol/L (Normal) Range: 134-144 BUN/Creatinine Ratio 15 (Normal) Range: 11-26 eGFR If Africn Am 71 mL/min/1.73 (Normal) eGFR If NonAfricn Am 61 mL/min/1.73 (Normal) Creatinine, Serum 1.00 mg/dL (Normal) Range: 0.57-1.00 BUN 15 mg/dL (Normal) Range: 8-27 Glucose, Serum 89 mg/dL (Normal) Range: 65-99 44-Djv-887380:00 LIPID PANEL ([id number]) Comments: PATIENT WAS FASTINGPERFORMED BY: Mettl6370 [facility] [id number] LDL/HDL Ratio 1.3 {ratio_units} (Normal) Range: 0.0-3.2 LDL Cholesterol Calc 120 mg/dL (Abnormal) Range: 0-99 VLDL Cholesterol Esau 20 mg/dL (Normal) Range: 5-40 HDL Cholesterol 92 mg/dL (Normal) Comments: According to ATP-III Guidelines, HDL-C >59 mg/dL is considered anegative risk factor for CHD. Triglycerides 100 mg/dL (Normal) Range: 0-149 Cholesterol, Total 232 mg/dL (Abnormal) Range: 100-199 94-Gzn-520458:00 CBC WITH MANUAL DIFF Comments: PATIENT WAS FASTINGPERFORMED BY: LabCoVirtua VoorheesSaxzux6159 [facility] [id number] Information: [id number] ([id number]) Immature Grans (Abs) 0.0 {x10E3/uL} (Normal) Range: 0.0-0.1 Immature Granulocytes 0 % (Normal) Range: 0-2 Baso (Absolute) 0.1 {x10E3/uL} (Normal) Range: 0.0-0.2 Eos (Absolute) 0.2 {x10E3/uL} (Normal) Range: 0.0-0.4 Monocytes(Absolute) 0.4 {x10E3/uL} (Normal) Range: 0.1-1.0 Lymphs (Absolute) 1.7 {x10E3/uL} (Normal) Range: 0.7-4.5 Neutrophils (Absolute) 3.3 {x10E3/uL} (Normal) Range: 1.8-7.8 Basos 1 % (Normal) Range: 0-3 Eos 3 % (Normal) Range: 0-7 Monocytes 7 % (Normal) Range: 4-13 Lymphs 30 % (Normal) Range: 14-46 Neutrophils 59 % (Normal) Range: 40-74 Platelets 290 {x10E3/uL} (Normal) Range: 140-415 RDW 13.7 % (Normal) Range: 12.3-15.4 MCHC 32.6 g/dL (Normal) Range: 31.5-35.7 MCH 29.5 pg (Normal) Range: 26.6-33.0 MCV 91 fL (Normal) Range: 79-97 Hematocrit 41.1 % (Normal) Range: 34.0-46.6 Hemoglobin 13.4 g/dL (Normal) Range: 11.1-15.9 RBC 4.54 {x10E6/uL} (Normal) Range: 3.77-5.28 WBC 5.6 {x10E3/uL} (Normal) Range: 4.0-10.5 :35 Microscopic Examination Comments: PATIENT WAS FASTINGPERFORMED BY: [facility] [id number] Bacteria Few (Normal) Mucus Threads Present (Normal) Epithelial Cells (non renal) >10 {/hpf} (Abnormal) Range: 0 - 10 RBC 0-3 {/hpf} (Normal) Range: 0 - 3 WBC 0-5 {/hpf} (Normal) Range: 0 - 5 :35 URINALYSIS, W/ MICRO ([id number]) Comments: PATIENT WAS FASTINGPERFORMED BY: [facility] [id number] Microscopic Examination See below: (Normal) Microscopic Examination MICRON (Normal) Comments: Microscopic follows if indicated. Nitrite, Urine Negative (Normal) Urobilinogen,Semi-Qn 0.2 mg/dL (Normal) Range: 0.0-1.9 Bilirubin Negative (Normal) Occult Blood Negative (Normal) Ketones Negative (Normal) Glucose Negative (Normal) Protein Trace (Normal) WBC Esterase Negative (Normal) Appearance Clear (Normal) Urine-Color Yellow (Normal) pH 7.5 (Normal) Range: 5.0-7.5 Specific [place] 1.021 (Normal) Range: 1.005-1.030 :35 METABOLIC PANEL, COMPREHENSIVE Comments: PATIENT WAS FASTINGPERFORMED BY: [address] [facility] [id number] ([id number]) ALT (SGPT) 21 [iU]/L (Normal) Range: 0-40 AST (SGOT) 20 [iU]/L (Normal) Range: 0-40 Alkaline Phosphatase, S 77 [iU]/L (Normal) Range: 25-150 Bilirubin, Total 0.5 mg/dL (Normal) Range: 0.0-1.2 A/G Ratio 1.7 (Normal) Range: 1.1-2.5 Globulin, Total 2.5 g/dL (Normal) Range: 1.5-4.5 Albumin, Serum 4.3 g/dL (Normal) Range: 3.5-5.5 Protein, Total, Serum 6.8 g/dL (Normal) Range: 6.0-8.5 Calcium, Serum 9.3 mg/dL (Normal) Range: 8.7-10.2 Carbon Dioxide, Total 23 mmol/L (Normal) Range: 20-32 Chloride, Serum 105 mmol/L (Normal) Range: 97-108 Potassium, Serum 4.1 mmol/L (Normal) Range: 3.5-5.2 Sodium, Serum 144 mmol/L (Normal) Range: 134-144 BUN/Creatinine Ratio 12 (Normal) Range: 9-23 eGFR If Africn Am 72 mL/min/1.73 (Normal) Comments: Note: A persistent eGFR <60 mL/min/1.73 m2 (3 months or more) mayindicate chronic kidney disease. An eGFR >59 mL/min/1.73 m2 with anelevated urine protein also may indicate chronic kidney disease.Calculated using CKD-EPI formula. eGFR If NonAfricn Am 63 mL/min/1.73 (Normal) Creatinine, Serum 0.99 mg/dL (Normal) Range: 0.57-1.00 BUN 12 mg/dL (Normal) Range: 6-24 Glucose, Serum 87 mg/dL (Normal) Range: 65-99 :35 LIPID PANEL ([id number]) Comments: PATIENT WAS FASTINGPERFORMED BY: [facility]Flag[facility] [id number] LDL/HDL Ratio 1.3 {ratio_units} (Normal) Range: 0.0-3.2 LDL Cholesterol Calc 130 mg/dL (Abnormal) Range: 0-99 VLDL Cholesterol Esau 13 mg/dL (Normal) Range: 5-40 HDL Cholesterol 102 mg/dL (Normal) Comments: According to ATP-III Guidelines, HDL-C >59 mg/dL is considered anegative risk factor for CHD. Triglycerides 63 mg/dL (Normal) Range: 0-149 Cholesterol, Total 245 mg/dL (Abnormal) Range: 100-199 :35 CBC WITH MANUAL DIFF Comments: PATIENT WAS FASTINGPERFORMED BY: [place] [id number] Information: [id number] (23215) Immature Grans (Abs) 0.0 {x10E3/uL} (Normal) Range: 0.0-0.1 Immature Granulocytes 0 % (Normal) Range: 0-2 Baso (Absolute) 0.1 {x10E3/uL} (Normal) Range: 0.0-0.2 Eos (Absolute) 0.1 {x10E3/uL} (Normal) Range: 0.0-0.4 Monocytes(Absolute) 0.4 {x10E3/uL} (Normal) Range: 0.1-1.0 Lymphs (Absolute) 1.6 {x10E3/uL} (Normal) Range: 0.7-4.5 Neutrophils (Absolute) 2.6 {x10E3/uL} (Normal) Range: 1.8-7.8 Basos 1 % (Normal) Range: 0-3 Eos 3 % (Normal) Range: 0-7 Monocytes 8 % (Normal) Range: 4-13 Lymphs 33 % (Normal) Range: 14-46 Neutrophils 55 % (Normal) Range: 40-74 Platelets 338 {x10E3/uL} (Normal) Range: 140-415 RDW 13.8 % (Normal) Range: 11.7-15.0 MCHC 32.3 g/dL (Normal) Range: 32.0-36.0 MCH 29.3 pg (Normal) Range: 27.0-34.0 MCV 91 fL (Normal) Range: 80-98 Hematocrit 41.8 % (Normal) Range: 34.0-44.0 Hemoglobin 13.5 g/dL (Normal) Range: 11.5-15.0 RBC 4.61 {x10E6/uL} (Normal) Range: 3.80-5.10 WBC 4.7 {x10E3/uL} (Normal) Range: 4.0-10.5 :42 Urinalysis, Office (20502) UA - BILIRUBIN Negative (Normal) UA - BLOOD Hemolyzed Trace (Normal) UA - GLUCOSE Negative (Normal) UA - KETONES Negative mg/dL (Normal) UA - LEUKOCYTE ESTERASE Negative (Normal) UA - NITRITE Negative (Normal) UA - PH 7.0 (Normal) UA - PROTEIN Negative mg/dL (Normal) UA - SPECIFIC GRAVITY 1.015 (Normal) URINE UROBILINGN KATHRYN TIMED 2 mg/dL (Normal) 89-Ygy-458922:01 BILAT SCRN DIGITAL & CAD Radiology Report See Note (Normal) Comments: MAMMOGRAPHY - BILATERAL SCREENING INDICATION:Female, 60 years old. Routine annual screening examination. PERTINENT HISTORY:Non-contributory. The patient has a history of prior right breastbiopsy. TECH NIQUE:Digital examination. Mediolateral oblique (MLO) and craniocaudad (CC)views of both breasts were obtained. CAD: CAD was performed on thisstudy. COMPARISON:Comparison is made with prior examination dated August 14, 2009. FINDINGS:The breast composition is heterogeneously dense. There are no masses or suspicious microcalcifications. No other significant abnormalities are identified. There has been nosignificant change since the prior study. IMPRESSION:Normal bilateral screening mammogram. One year follow-up recommended. (1) ASSESSMENT CATEGORY:BIRADS Category 2: Benign finding(s). A letter reg arding these resultswill be sent to the patient by the facility within 30 days. Approximately 10% of breast cancers are not detected by mammography. Anormal mammogram should not delay biopsy of a clini kenny suspiciousabnormality. Dictated on 08/15/10 0910 by Julián Gerardo MDranscribed on 08/15/10 1102 by ITS IMPORTSign by Justice Gerardo MD on 08/15/10 1103 Sign by: Justice Gerardo MD 9-Ijk-481116:49 MYOCARD PERF STRESS/REST MULT Radiology Report See Note (Normal) Comments: EXERCISE MYOCARDIAL PERFUSION SCAN A 60-year-old lady with a history of atypical chest pain. BTWQDWDNJ20.0 mCi of Sestamibi was injected at rest. The patient exercisedaccording to the regul ar Rajat pro tocol for a total duration of 9minutes. The maximum heart rate attained was 127 beats which was 78% ofmaximum predicted heart rate. The maximum workload attained was 10.1METs. At peak exercise 31.0 mCi of Sestamibi was then injected. Stressimages were then obtained. Stress and rest images were reconstructed andcompared in the short axis, vertical long and horizontal long axes.Gated images were al so obtained. RESULTSReview of the tracings demonstrate normal cardiac silhouette size. Thereis mildly reduced uptake in the anterior wall in the stress and restingimages consistent with breast attenuat ion artifact. No reversibility isnoted to suggest ischemia. The gated ejection fraction is 62% withnormal wall motion. CONCLUSION1. Exercise stress test with no evidence of ischemia at a high workloa d.2. Preserved ejection fraction. Dictated on 08/06/10 1029 by Jose Juan HORNER,JaidenrilTranscribed on 08/06/10 1249 by Nati DEMPSEYgn by Johann Drake MD on 08/06/10 9071 Sign by: Johann Drake MD :16 HEPATIC FUNCTION PANEL Comments: PATIENT WAS FASTINGPERFORMED BY: Mettl6370 [facility] [id number] Information: [id number] (75192) ALT (SGPT) 22 [iU]/L (Normal) Range: 0-40 AST (SGOT) 21 [iU]/L (Normal) Range: 0-40 Alkaline Phosphatase, S 75 [iU]/L (Normal) Range: 25-150 Bilirubin, Direct 0.13 mg/dL (Normal) Range: 0.00-0.40 Bilirubin, Total 0.4 mg/dL (Normal) Range: 0.0-1.2 Albumin, Serum 4.2 g/dL (Normal) Range: 3.5-5.5 Protein, Total, Serum 6.5 g/dL (Normal) Range: 6.0-8.5 :16 Lipid Panel (13246) Comments: PATIENT WAS FASTINGPERFORMED BY: [address] [facility] [id number] LDL/HDL Ratio 1.4 {ratio_units} (Normal) Range: 0.0-3.2 LDL Cholesterol Calc 116 mg/dL (Abnormal) Range: 0-99 VLDL Cholesterol Esau 18 mg/dL (Normal) Range: 5-40 HDL Cholesterol 85 mg/dL (Normal) Comments: According to ATP-III Guidelines, HDL-C >59 mg/dL is considered anegative risk factor for CHD. Triglycerides 89 mg/dL (Normal) Range: 0-149 Cholesterol, Total 219 mg/dL (Abnormal) Range: 100-199 :16 C-REACT PROT HIGH SENS(hsCRP) Comments: PATIENT WAS FASTINGPERFORMED BY: Mettl6370 [facility] [id number] ([id number]) C-Reactive Protein, Cardiac 12.60 mg/L (Abnormal) Range: 0.00-3.00 Comments: Relative Risk for Future Cardiovascular Event Low <1.00 Average 1.00 - 3.00 High >3.00 :16 Homocysteine, Plasma (06261) Comments: PATIENT WAS FASTINGPERFORMED BY: Mettl6370 [facility] [id number] Homocyst(e)ine, Plasma 7.8 umol/L (Normal) Range: 0.0-15.0 30-Zsj-850155:35 URINE BOOGIE CULTURE-KATHRYN COL Comments: PATIENT NOT FASTINGPERFORMED BY: [employer]lin6370 [facility] [id number] Information: SRC: [id number] COUNT (23480) Result 1 VIRIST (Normal) Comments: Viridans streptococcus group1,000 Colonies/mLSusceptibility not normally performed on this organism. Urine Final report (Normal) Culture,Comprehensive 52-Nll-453068:30 ABDOMEN/PELVIS WITH CONTRAST Radiology Report See Note (Normal) Comments: CLINICAL:Female, 59 years old. The patient presents with a one week history ofleftlower quadrant pain. The patient is status post appendectomy. CT ABDOMEN AND PELVIS WITH CONTRAST TECHNIQUE:Transaxial images were obtained from the dome of the diaphragm to thesymphysis pubis with oral contrast. 100 ml of Isovue-300 contrast wasadministered. Multiplanar coronal and sagittal images were reformatted. COMPARISON:Comparison is made with prior study dated March,. FINDINGS:The visualized lung bases are unremarkable. Normal enhanced liver. Normal gallbladder and extrahepatic biliarysystem.Norm al enhanced spleen. Normal pancreas. Normal bilateral adrenal glands. Normal size of the right kidney. There is no right renal mass. Thereareno right renal calculi. There is no right hydronephrosis. Normalvisualized right ureter. Normal size of the left kidney. There is evidence of several smallparapelvic cysts. There are no left renal calculi. There is no lefthydronephrosis. Normal visualize d left ureter. Normal visualized stomach. Normal small intestine. There isdiverticulosis, with thickening of the colon wall, and pericolonicinflammation changes consistent with acute diverticulitis. The patientisstatus post appendectomy. There is no demonstrated peritoneal fluid. Normal abdominal aorta. Normal inferior vena cava. Normalretroperitoneum. Normal urinary bladder. There is no pelvic mass lesion orlymphadenopathy.There is no pelvic fluid. Normal abdominal wall. There are diffuse degenerative changes of thevisualized lumbar spine. IMPRESSION:Findings in keeping with sigmoid diverti culitis. Dictated on 03/15/10 1334 by Julián Gerardoranscribed on 03/15/10 1411 by ITS IMPORTSign by Justice Gerardo on 03/15/10 1412 Sign by: Justice Gerardo 2-Jfd-457490:27 Thin prep Pap Comments: Source.............Cervical;EndocervicalNo. of containers..01 CYTYC Thin Prep VialPATIENT NOT FASTINGPERFORMED BY: Lab[address] [id number] Information: [id number] ([id number]) Note: PAPSMR (Normal) Comments: The Pap smear is a screening test designed to aid in the detection ofpremalignant and malignant conditions of the uterine cervix. It is not adiagnostic procedure and should not be used as the sole mean s of detectingcervical cancer. Both false-positive and false-negative reports do occur..The HPV DNA reflex criteria were not met with this specimen resulttherefore, no HPV testing was performed.. See Note . (Normal) DIAGNOSIS: SPRCS (Normal) Comments: NEGATIVE FOR INTRAEPITHELIAL LESION AND MALIGNANCY.Satisfactory for evaluation. Endocervical and/or squamous metaplasticcells (endocervical component) are present.V70.0 ; Routine general me dical examin [facility] (ASCP) 2-Owq-949442:12 Urinalysis, Office (73796) UA - LEUKOCYTE ESTERASE Negative (Normal) UA - NITRITE Negative (Normal) URINE UROBILINGN KATHRYN TIMED Normal mg/dL (Normal) UA - PROTEIN Negative mg/dL (Normal) UA - PH 7.5 (Normal) UA - BLOOD Hemolyzed Trace (Normal) UA - SPECIFIC GRAVITY 1.015 (Normal) UA - KETONES Negative mg/dL (Normal) UA - BILIRUBIN Negative (Normal) UA - GLUCOSE Negative (Normal) 41-Sca-930880:56 BILAT SCRN DIGITAL & CAD Radiology Report See Note (Normal) Comments: Exam Number: [id number] MAMMOGRAPHY - BILATERAL SCREENING INDICATION:Routine annual screening examination. PERTINENT HISTORY:Non-contributory. TECHNIQUE:Digital examination. Mediolateral oblique (MLO) a nd craniocaudad(CC) views of both breasts were obtained. CAD was performed on thisstudy. COMPARISON:Comparison is made with prior examination dated July 15, 2007. FINDINGS:The breast composition is hete rogeneously dense. There are no masses or suspicious microcalcifications. No other significant abnormalities are identified. There has beenno significant change since the prior study. IMPRESSION:Normal bilateral screening mammogram. Yearly follow-up recommended. ASSESSMENT CATEGORY:Category 2: Benign finding(s) Approximately 10% of breast cancers are not detected by mammography.A normal mammogram s hould not delay biopsy of a clinicallysuspicious abnormality.This addendum is being created for the purpose of attaching a ResultCode to this exam.ADDENDUM: [id number] HPBI/MDS Reported By: JUSTICE GERARDO 27-Jul-2009 C-Reactive Protein, 9.8 mg/L Comments: PATIENT WAS FASTINGPERFORMED BY: JAMIL [place] Prmhfn1140 [facility] [id number] 9:00 Quant (Abnormal) Range: 0.0-4.9 63-Deh-01584:00 CBC With Differential/Platelet Comments: PATIENT WAS FASTINGPERFORMED BY: [facility] Systemz6370 [facility] [id number] Baso (Absolute) 0.0 {x10E3/uL} (Normal) Range: 0.0-0.2 Eos (Absolute) 0.2 {x10E3/uL} (Normal) Range: 0.0-0.4 Lymphs (Absolute) 1.4 {x10E3/uL} (Normal) Range: 0.7-4.5 Monocytes(Absolute) 0.3 {x10E3/uL} (Normal) Range: 0.1-1.0 Basos 0 % (Normal) Range: 0-3 Neutrophils (Absolute) 2.3 {x10E3/uL} (Normal) Range: 1.8-7.8 Eos 5 % (Normal) Range: 0-7 Monocytes 7 % (Normal) Range: 4-13 Lymphs 33 % (Normal) Range: 14-46 Neutrophils 55 % (Normal) Range: 40-74 Platelets 255 {x10E3/uL} (Normal) Range: 140-415 RDW 14.4 % (Normal) Range: 11.7-15.0 Hematocrit 40.4 % (Normal) Range: 34.0-44.0 MCH 30.5 pg (Normal) Range: 27.0-34.0 MCHC 33.5 g/dL (Normal) Range: 32.0-36.0 MCV 91 fL (Normal) Range: 80-98 Hemoglobin 13.5 g/dL (Normal) Range: 11.5-15.0 RBC 4.43 {x10E6/uL} (Normal) Range: 3.80-5.10 WBC 4.2 {x10E3/uL} (Normal) Range: 4.0-10.5 82-Syq-27633:00 Comp. Metabolic Panel (14) Comments: PATIENT WAS FASTINGPERFORMED BY: LabCoVirtua VoorheesKhabua1329 [facility] [id number] A/G Ratio 1.9 (Normal) Range: 1.1-2.5 Alkaline Phosphatase, S 67 [iU]/L (Normal) Range: 25-150 ALT (SGPT) 17 [iU]/L (Normal) Range: 0-40 AST (SGOT) 19 [iU]/L (Normal) Range: 0-40 Bilirubin, Total 0.6 mg/dL (Normal) Range: 0.0-1.2 Albumin, Serum 4.5 g/dL (Normal) Range: 3.5-5.5 Globulin, Total 2.4 g/dL (Normal) Range: 1.5-4.5 Protein, Total, Serum 6.9 g/dL (Normal) Range: 6.0-8.5 Calcium, Serum 8.8 mg/dL (Normal) Range: 8.7-10.2 Carbon Dioxide, Total 22 mmol/L (Normal) Range: 20-32 Chloride, Serum 105 mmol/L (Normal) Range: 97-108 Potassium, Serum 4.0 mmol/L (Normal) Range: 3.5-5.2 Sodium, Serum 141 mmol/L (Normal) Range: 135-145 BUN/Creatinine Ratio 13 (Normal) Range: 8-27 eGFR AfricanAmerican >59 mL/min/1.73 Comments: Note: Persistent reduction for 3 months or more in an eGFR<60 mL/min/1.73 m2 defines CKD. Patients with eGFR values>/=60 mL/min/1.73 m2 may also have CKD if evidence of persistentproteinuria is (Normal) present. Additional information may be found [email or web address]. eGFR >59 mL/min/1.73 (Normal) BUN 12 mg/dL (Normal) Range: 5-26 Creatinine, Serum 0.94 mg/dL (Normal) Range: 0.57-1.00 Glucose, Serum 88 mg/dL (Normal) Range: 65-99 :00 Lipid Panel With LDL/HDL Comments: PATIENT WAS FASTINGPERFORMED BY: [facility] Knwgzz9425 [facility] [id number] Ratio HDL Cholesterol 112 mg/dL (Normal) Comments: According to ATP-III Guidelines, HDL-C >59 mg/dL is considered anegative risk factor for CHD. LDL Cholesterol Calc 114 mg/dL Range: 0-99 (Abnormal) LDL/HDL Ratio 1.0 {ratio_units} Range: 0.0-3.2 (Normal) VLDL Cholesterol Esau 10 mg/dL (Normal) Range: 5-40 Cholesterol, Total 236 mg/dL Range: 100-199 (Abnormal) Triglycerides 52 mg/dL (Normal) Range: 0-149 NTI Urine Tube (Zurita) COMMNT (Normal) Comments: PATIENT WAS FASTINGPERFORMED BY: [facility] [id number] :00 Comments: Test not indicated.IF TESTING IS REQUESTED ON URINE CULTURE TUBE PLEASE CONTACTLAB WITHIN 3 DAYS.A urine culture transport was received with no test indicated. Iftesting is required on this specimen, pl ease contact the [facility] Inquiry/Technical Services Department to obtain a Request forWritten Authorization Form. :00 Urinalysis, Routine Comments: PATIENT WAS FASTINGPERFORMED BY: [facility] [id number] Microscopic Examination MICRON (Normal) Comments: Microscopic follows if indicated. Bilirubin Negative (Normal) Nitrite, Urine Negative (Normal) Occult Blood Negative (Normal) Urobilinogen,Semi-Qn 0.2 mg/dL (Normal) Range: 0.0-1.9 Glucose Negative (Normal) Ketones Negative (Normal) Protein Negative (Normal) Appearance Clear (Normal) pH 7.5 (Normal) Range: 5.0-7.5 Urine-Color Yellow (Normal) WBC Esterase Negative (Normal) Specific Troy 1.011 (Normal) Range: 1.005-1.030 Vitamin D, 25-Hydroxy 39.3 ng/mL (Normal) Comments: PATIENT WAS FASTINGPERFORMED BY: [facility] [id number] :00 Range: 32.0-100.0 Comments: Recent studies consider the lower limit of 32.0 ng/mL to be athreshold for optimal health.Mike ESCOBAR. J Nutr. 2004;135(2):317-22. 37-Vjf-822664:47 Urinalysis, Office (12587) UA - LEUKOCYTE ESTERASE Negative (Normal) UA - NITRITE Positive (Normal) URINE UROBILINGN KATHRYN TIMED 2 mg/dL (Normal) UA - PROTEIN Negative mg/dL (Normal) UA - PH 6.5 (Normal) UA - BLOOD Hemolyzed Trace (Normal) UA - SPECIFIC GRAVITY 1.015 (Normal) UA - KETONES Negative mg/dL (Normal) UA - BILIRUBIN Negative (Normal) UA - GLUCOSE Negative (Normal) 8-Vio-671706:51 URINE BOOGIE CULTURE-KATHRYN COL Comments: PATIENT NOT FASTINGPERFORMED BY: [facility] [id number] Information: SRC:UR [id number] COUNT ([id number]) Antimicrobial MIHEAD (Normal) Comments: S = Susceptible; I = Intermediate; R = Resistant P = Positive; N = NegativeMICS are expressed in micrograms per mLAntibiotic RSLT#1 RSLT#2 RSLT#3 RSLT#4Am oxicillin/Cl Susceptibility avulanic Acid SAmpicillin SCefepime SCeftriaxone SCefuroxime SCephalothin SCiprofloxacin SESBL NGentamicin SImipenem SLevofloxacin SNitrofurantoin SPiperacillin/Tazobactam Tony tracycline STobramycin STrimethoprim/Sulfa S Result 1 Escherichia coli Comments: 25,000-50,000 colony forming units per mL (Normal) Urine Final report (Normal) Culture,Comprehensive 3-Kag-709014:36 Urinalysis, Office (89260) UA - LEUKOCYTE ESTERASE Moderate (Normal) UA - NITRITE Negative (Normal) URINE UROBILINGN KATHRYN TIMED Normal mg/dL (Normal) UA - PROTEIN Negative mg/dL (Normal) UA - PH 6.0 (Normal) UA - BLOOD Hemolyzed Moderate (Normal) UA - SPECIFIC GRAVITY 1.010 (Normal) UA - KETONES Negative mg/dL (Normal) UA - BILIRUBIN Negative (Normal) UA - GLUCOSE Negative (Normal) 86-Teh-13524:19 URINE BOOGIE CULTURE-KATHRYN COL Comments: PATIENT NOT FASTINGClinical Information: SRC:UR [id number] PERFORMED BY: [facility] [id number] COUNT ([id number]) Result 1 Lactobacillus species Comments: 50,000-100,000 colony forming units per mL (Normal) Urine Final report (Normal) Culture,Comprehensive 55-Tgh-105861:56 Urinalysis, Office (26001) UA - BILIRUBIN Small (Normal) UA - BLOOD Hemolyzed Small (Normal) UA - GLUCOSE Negative (Normal) UA - KETONES Small mg/dL (Normal) UA - LEUKOCYTE ESTERASE Negative (Normal) UA - NITRITE Negative (Normal) UA - PH 5.0 (Normal) UA - PROTEIN Trace mg/dL (Normal) UA - SPECIFIC GRAVITY 1.025 (Normal) URINE UROBILINGN KATHRYN TIMED 2 mg/dL (Normal) :57 CHEST WITH CONTRAST Radiology Report See Note (Normal) Comments: Exam Number: [id number] CLINICAL:Shortness of breath and back pain. CTA CHEST COMPARISON:None. TECHNIQUE:The examination was performed with the intravenous administration of 150 ml of Isovue 370 contrast . Post-processing of the angiographic images was performed, with multiplanar reformation and 3D reconstruction. FINDINGS:There is no demonstrated intraluminal defect of the pulmonary arteries. Specifica lly, there is no demonstrated pulmonary embolus Normal main pulmonary artery, with normal right and left pulmonary arteries. Normal bilateral peripheral pulmonary arteries, without vascular prominence . There is no demonstrated arterial dissection, with a normal visualized aortic arch, brachiocephalic, left common, and left subclavian arteries, and descending thoracic aorta. Normal cardiac size, with out demonstrated pericardial fluid or pleural thickening. There are no demonstrated vascular calcifications of the coronary arteries. There are no valvular calcifications. Normal mediastinum and pulmo nary vazquez, without mediastinal or hilar lymphadenopathy. There are two tiny nodular densities in the left upper lobe, measuring 2 mm and 3 mm (series 4 image is 120 and 178). Otherwise, normal pulmonar y parenchyma, with normal inflation of the lungs and no demonstrated parenchymal infiltrate. Normal pleura, without pleural thickening, a mass lesion or calcifications. There are no pleural effusions. Normal thoracic esophagus (mucosal disease cannot be excluded) There is no lymphadenopathy of the axillary or supraclavicular lymph nodes. Normal visualized liver, spleen, pancreas and adrenal glands. T here are mild degenerative changes of the thoracic spine. Normal visualized chest wall structures. IMPRESSION:No evidence of pulmonary embolism. No evidence of aortic dissection. Two tiny 2-3 mm nonc alcified nodular densities in the left upper lobe, which are nonspecific and are likely related to infectious or inflammatory process. No parenchymal infiltrates. Reported By: MALCOLM BHAKTA M.D. Vitamin D, 25-Hydroxy 49.7 ng/mL (Normal) Comments: PERFORMED BY: [facility] [id number] :01 Range: 32.0-100.0 Comments: Recent studies consider the lower limit of 32.0 ng/mL to be athreshold for optimal health.[facility]. J Nutr. 2004;135(2):317-22. 6-Ffp-169977:14 CALCIFIDIOL (12063) VIT D 25 Comments: PATIENT WAS FASTINGClinical Information: ADD [id number] PERFORMED BY: [employer] Yivlal3[address] RoadDublin [place] [id number] Vitamin D, 25-Hydroxy 39.1 ng/mL (Normal) Range: 32.0-100.0 Comments: Recent studies consider the lower limit of 32.0 ng/mL to be athreshold for optimal health.[facility]. J Nutr. 2004;135(2):317-22. 5-Tfw-176432:14 CALCIUM SERUM (29341) Comments: PATIENT WAS FASTINGPERFORMED BY: [employer] Dddtoc5141 [address] RoadOmniVecblin [place] [id number] Calcium, Serum 9.5 mg/dL (Normal) Range: 8.5-10.6 3-Ffz-069965:14 PARATHORMONE (49132) Comments: PATIENT WAS FASTINGPERFORMED BY: [employer] [facility] Iiebyw[address] RoadDublin [place] [id number] PTH, Intact 28 pg/mL (Normal) Range: 15-65 :28 BONE SCAN WHOLE BODY Radiology Report See Note (Normal) Comments: Exam Number: [id number] CLINICAL DATAAbnormal lesion at the left iliac area seen on CT scan. WHOLE-BODY BONE SCANWhole body bone scan in anterior and posterior views was obtainedabout 3 kristie rs after inj ection of 25 mCi of Tc99m MDP. There is no abnormal focal area of increased or decreased activity inthe bony structures. Spot images of the pelvis were obtained inmultiple projections. Both kidneys a re unremarkable. Scleroticarea in the posterior portion of the left iliac bone adjacent to theSI joint on CT scan was failed to be demonstrated as abnormal area ofincreased or decreased activity in thi s bone scan. IMPRESSIONNo focal abnormal area of increased or decreased activity in the areaof posterior portion of the left iliac bone adjacent to the SI joint. Reported By: ELLEN ELDRIDGE :12 DEXA BONE DENSITY STUDY (HP) Radiology Report See Note (Normal) Comments: Exam Number: [id number] CLINICAL DATAAbnormal lesion left iliac area seen on CT scan. EXAMINATIONWhole body bone scan. Whole body bone scan in anterior and posterior views wasobtained ab out 3 hours after the injection of 25 mCi of technetium-99MDP. There is no abnormal focal area of increased or decreased activity inthe bony structures. Spot images of the pelvis obtained in multipleprojections. Some sclerotic area in theposterior portion of left iliac bone adjacent to the SI joint on CTscan was failed to be demonstrated as an abnormal area of increasedor decreased activity in this bone scan. IMPRESSION No focal abnormal area of increased or decreased activity in the areaof posterior portion of the left iliac bone adjacent to thesacroiliac joint. Reported By: ELLEN ELDRIDGE :33 CBCD BASO% 1.0 % (Normal) Range: 0-1 EO% 3.2 % (Normal) Range: 0-5 HCT 39.0 % (Normal) Range: 37-47 HGB 13.4 g/dL (Normal) Range: 12.0-16.0 LY% 28.9 % (Normal) Range: 19-41 MCH 30.8 pg (Normal) Range: 27.0-32.0 MCHC 34.3 g/dL (Normal) Range: 32-36 MCV 89.8 fL (Normal) Range: 81-99 MONO% 6.0 % (Normal) Range: 0-10 MPV 8.4 fL (Normal) Range: 6.5-12.0 NEUT% 60.9 % (Normal) Range: 47-70 PLT 293 K/mm3 (Normal) Range: 150-450 RBC 4.34 {M/mm3} (Normal) Range: 4.2-5.4 RDW 13.7 % (Normal) Range: 11.6-14.6 WBC 6.2 K/mm3 (Normal) Range: 4.4-11.0 :33 COMP METABOLIC A/G 1.1 {RATIO} (Normal) Range: 0.9-2.4 ALB 3.7 g/dL (Normal) Range: 3.4-5.0 ALK P 88 U/L (Normal) Range: 50-136 ALT 28 U/L (Abnormal) Range: 30-65 AST 14 U/L (Abnormal) Range: 15-37 BUN 13 mg/dL (Normal) Range: 7-18 BUN/CRE 14.4 {RATIO} (Normal) Range: 10-20 CA 8.7 mg/dL (Normal) Range: 8.5-10.1 CL 108 mmol/L (Abnormal) Range: 98-107 CO2 27.0 mmol/L (Normal) Range: 21.0-32.0 CREAT,SERUM 0.9 mg/dL (Normal) Range: 0.6-1.0 EST GFR 69 mL/min (Normal) EST GFR - AA 84 mL/min (Normal) GAP 6 (Normal) Range: 5-15 GLOB 3.3 g/dL (Normal) Range: 2.7-4.2 GLU 86 mg/dL (Normal) Range: 70-110 K 3.8 mmol/L (Normal) Range: 3.5-5.1 NA 141 mmol/L (Normal) Range: 136-145 T BILI 0.60 mg/dL (Normal) Range: 0.00-1.00 T PROT 7.0 g/dL (Normal) Range: 6.4-8.2 :33 LIPID CHOL 220 mg/dL (Abnormal) Comments: <200 mg/dL Desirable 200-240 mg/dL Borderline >240 mg/dL High Risk HDL 91 mg/dL (Normal) Comments: Reference Range HDL <40 mg/dL Low HDL Cholesterol HDL >or= 60 mg/dL High HDL Cholesterol LDL 115 mg/dL (Normal) Range: 0-130 TRIG 69 mg/dL (Normal) Comments: Serum Triglycerides Reference Interval Normal <150 mg/dL Borderline high 150 - 199 mg/dL High 200 - 499 mg/dL Very High > or = 500 mg/dL VLDL 14 mg/dL (Normal) Range: 5-40 :33 VIT D,25 28109 25.8 ng/mL (Abnormal) Range: 32.0-100.0 Comments: Recent studies consider the lower limit of 32.0 ng/mL to mela threshold for optimal health.Mike ESCOBAR. J Nutr. 2004;135(2):317-22.Performed At: [address]in, [place] [id number] 02-Qbc-820262:49 Urinalysis, Office (48411) UA - BILIRUBIN Negative (Normal) UA - BLOOD Hemolyzed Trace (Normal) UA - GLUCOSE Negative (Normal) UA - KETONES Negative mg/dL (Normal) UA - LEUKOCYTE ESTERASE Negative (Normal) Comments: aw UA - NITRITE Negative (Normal) UA - PH 6.0 (Normal) UA - PROTEIN Negative mg/dL (Normal) UA - SPECIFIC GRAVITY 1.010 (Normal) URINE UROBILINGN KATHRYN TIMED Normal mg/dL (Normal) 3-Cza-494874:41 POST VOID RESIDUAL BLADDER Radiology Report See Note (Normal) Comments: Exam Number: [id number] ULTRASOUND OF THE KIDNEYS/POST VOID RESIDUAL URINARY BLADDER CLINICAL INFORMATIONHematuria. Sonographic evaluation of the kidneys was performed. The right kidneywas difficult to visualize well. Dimensions are approximately 11.4 x4.9 x 3.7 cm in longitudinal, AP and transverse dimensions. There isno evidence of hydronephrosis. Cortical echogenicity appears to bewithin richard l limits. Left kidney was somewhat better seen and measured approximately 10.4 x5.7 x 4.5 cm. Cortical echogenicity appears normal. There appear flip mild pelvic caliectasis predominantly involving th e mid to lowerpole of the kidney. Upper pole calyces appear relatively spared. Following voiding, the calculated bladder volume was approximately 52cc. IMPRESSION1) Right kidney was difficult to visualize. There was nohydronephrosis seen on the right. Left kidney demonstrates mildpelvic caliectasis in the mid to lower pole.2) Urinary bladder demonstrates a postvoid residual of negfxrzdcvuzs74 cc. Reported By: JOANNE STORY M.D. 02-Feb-20088:21 KIDNEY Radiology Report See Note (Normal) Comments: Exam Number: [id number] ULTRASOUND OF THE KIDNEYS/POST VOID RESIDUAL URINARY BLADDER CLINICAL INFORMATIONHematuria. Sonographic evaluation of the kidneys was performed. The right kidneywas difficult to visualize well. Dimensions are approximately 11.4 x4.9 x 3.7 cm in longitudinal, AP and transverse dimensions. There isno evidence of hydronephrosis. Cortical echogenicity appears to bewithin richard l limits. Left kidney was somewhat better seen and measured approximately 10.4 x5.7 x 4.5 cm. Cortical echogenicity appears normal. There appear flip mild pelvic caliectasis predominantly involving th e mid to lowerpole of the kidney. Upper pole calyces appear relatively spared. Following voiding, the calculated bladder volume was approximately 52cc. IMPRESSION1) Right kidney was difficult to visualize. There was nohydronephrosis seen on the right. Left kidney demonstrates mildpelvic caliectasis in the mid to lower pole.2) Urinary bladder demonstrates a postvoid residual of uqedfbpzjrepb27 cc. Reported By: JOANNE STORY M.D. 01-Feb-20088:49 Urinalysis, Office (77307) UA - BILIRUBIN Negative (Normal) UA - BLOOD Hemolyzed Trace (Normal) UA - GLUCOSE Negative (Normal) UA - KETONES Negative mg/dL (Normal) UA - LEUKOCYTE ESTERASE Trace (Normal) UA - NITRITE Negative (Normal) UA - PH 7.0 (Normal) UA - PROTEIN Negative mg/dL (Normal) UA - SPECIFIC GRAVITY 1.010 (Normal) URINE UROBILINGN KATHRYN TIMED Normal mg/dL (Normal) 08-Ksx-69629:45 Urinalysis, Office (56893) UA - BILIRUBIN Negative (Normal) UA - BLOOD Non Hemolyzed Trace (Normal) UA - GLUCOSE Negative (Normal) UA - KETONES Negative mg/dL (Normal) UA - LEUKOCYTE ESTERASE Negative (Normal) UA - NITRITE Negative (Normal) UA - PH 6.5 (Normal) UA - PROTEIN Negative mg/dL (Normal) UA - SPECIFIC GRAVITY 1.000 (Normal) URINE UROBILINGN KATHRYN TIMED Normal mg/dL (Normal) 0-Lvj-921192:50 Urinalysis, Office (65379) UA - BILIRUBIN Negative (Normal) UA - BLOOD Hemolyzed Trace (Normal) UA - GLUCOSE Negative (Normal) UA - KETONES Negative mg/dL (Normal) UA - LEUKOCYTE ESTERASE Negative (Normal) UA - NITRITE Negative (Normal) UA - PH 7.0 (Normal) UA - PROTEIN Negative mg/dL (Normal) UA - SPECIFIC GRAVITY 1.000 (Normal) URINE UROBILINGN KATHRYN TIMED Normal mg/dL (Normal) 61-Bmh-141627:48 ELBOW,MIN 3 VIEWS Radiology Report See Note (Normal) Comments: Exam Number: [id number] RIGHT ELBOW 3 VIEWS CLINICAL STATEMENTFell off couch, pain. There is no fracture visible. Joint spaces are maintained with normalalignment. Fat pads are visible ante riorly but n ot elevatedposteriorly. IMPRESSIONNormal study. Reported By: ETHEL MONDRAGON M.D. :47 FOREARM,2 VIEWS Radiology Report See Note (Normal) Comments: Exam Number: [id number] RIGHT FOREARM - 2 VIEWS. CLINICAL STATEMENTPain. Fell off couch. FINDINGSRoutine views show no fracture, dislocation, joint abnormality, orsoft tissue calcification. IMPRESSIONNo rmal examination of the right forearm. Reported By: ETHEL MONDRAGON M.D. :47 WRIST,MIN 3 VIEWS Radiology Report See Note (Normal) Comments: Exam Number: [id number] RIGHT WRIST - 3 VIEWS. CLINICAL STATEMENTPain. Fell off cough. FINDINGSThere is no fracture. Joint spaces are maintained and normallyaligned. No erosion or soft tissue calcific ation is evident. IMPRESSIONNormal study. Reported By: ETHEL MONDRAGON M.D. :02 Thin prep Pap (49581) Comments: LMP / Prev Treat...PAT=[id number]. of containers..01 CYTYC Thin Prep VialPATIENT NOT FASTINGClinical Information: [id number] PERFORMED BY: [facility] [facility] [id number] . . (Normal) DIAGNOSIS: SPRCS (Normal) Comments: NEGATIVE FOR INTRAEPITHELIAL LESION AND MALIGNANCY.Satisfactory for evaluation. Endocervical and/or squamous metaplasticcells (endocervical component) are present.V72.31 ; Routine gynecolog ical examina Hermes Hernandez, Supervisory Swim Instructor (ASCP) Note: PAPSMR (Normal) Comments: The Pap smear is a screening test designed to aid in the detection ofpremalignant and malignant conditions of the uterine cervix. It is not adiagnostic procedure and should not be used as the sole mean s of detectingcervical cancer. Both false-positive and false-negative reports do occur. .The HPV DNA reflex criteria were not met with this specimen resulttherefore, no HPV testing was performed. . :29 BILAT SCRN DIGITAL & CAD Radiology Report See Note (Normal) Comments: Exam Number: [id number] BILATERAL SCREENING DIGITAL MAMMOGRAM CLINICAL INFORMATIONScreening. Bilateral digital mammography was performed as a screening exam. Standard CC and MLO views were ob tained. The current study is compared to the previous examinations of March 25, 2006, and February 13, 2005. FINDINGSThere has been no significant change in the overall appearance of thebreasts. There is dense, somewhat heterogeneous parenchyma centrallyin both breasts, somewhat more prominent on the left than the rightbut stable as compared to previous studies. No dominant masses areevident and no suspicious groups of calcifications are seen. No areas of spiculation or distortion are found. There are a fewbenign calcifications. IMPRESSION1. Stable appearance of the breasts with no specific mammographice vidence of malignancy. Annual mammography is recommended.2. BIRADS 2 with 1-year followup. A letter regarding the results has been sent to the patient. This interpretation was rendered by a radiologis t certified underthe Mammography Quality Standards Act of 1992 (MQSA). The mammogramswere also examined with computer-aided detection software(GLIIF.). Reported By: JOANNE STORY M.D. 5-Fqu-577446:06 Urine Culture,Comprehensive Comments: Clinical Information: SRC:UR PERFORMED BY: [facility]Nov[facility] [id number] Result 1 MUG (Normal) Comments: Mixed urogenital [id number] Colonies/mL Urine Culture,Comprehensive Final report (Normal) 03-Jul-20078:43 Microscopic Examination Comments: PATIENT WAS FASTINGPERFORMED BY: [employer] Nxfbfe[address] QuintesocialNovant Health [facility] [id number] Bacteria None seen (Normal) Crystal Type Amorphous Sediment (Normal) Crystals Present (Abnormal) Epithelial Cells (non renal) 0-10 {/hpf} (Normal) Range: 0 - 10 Mucus Threads Present (Abnormal) RBC 0-3 {/hpf} (Normal) Range: 0 - 3 WBC 11-30 {/hpf} (Abnormal) Range: 0 - 5 03-Jul-20078:43 Urinalysis, Routine Comments: PATIENT WAS FASTINGPERFORMED BY: [facility]l[address] QuintesocialNovant [facility] [id number] Appearance Clear (Normal) Bilirubin Negative (Normal) Glucose Negative (Normal) Ketones Negative (Normal) Microscopic Examination See below: (Normal) Nitrite, Urine Negative (Normal) Occult Blood Negative (Normal) pH 7.0 (Normal) Range: 5.0-7.5 Protein Trace (Normal) Specific Troy 1.025 (Normal) Range: 1.005-1.030 Urine-Color Yellow (Normal) Urobilinogen,Semi-Qn 0.2 mg/dL (Normal) Range: 0.0-1.9 WBC Esterase 1+ (Abnormal) :43 CBC (Auto) (75915) Comments: PATIENT WAS FASTINGPERFORMED BY: [facility] VillageVirtua VoorheesQscvxj0091 [facility] [id number] Hematocrit 40.9 % (Normal) Range: 34.0-44.0 Hemoglobin 13.8 g/dL (Normal) Range: 11.5-15.0 MCH 30.1 pg (Normal) Range: 27.0-34.0 MCHC 33.6 g/dL (Normal) Range: 32.0-36.0 MCV 90 fL (Normal) Range: 80-98 Platelets 313 {x10E3/uL} (Normal) Range: 140-415 RBC 4.57 {x10E6/uL} (Normal) Range: 3.80-5.10 RDW 14.2 % (Normal) Range: 11.7-15.0 WBC 5.2 {x10E3/uL} (Normal) Range: 4.0-10.5 :43 Metabolic Panel, Comprehensive Comments: PATIENT WAS FASTINGPERFORMED BY: [facility] VillageVirtua VoorheesQamvpt7874 [facility] [id number] ([id number]) A/G Ratio 1.7 (Normal) Range: 1.1-2.5 Albumin, Serum 4.3 g/dL (Normal) Range: 3.5-5.5 Alkaline Phosphatase, S 81 [iU]/L (Normal) Range: 25-150 ALT (SGPT) 23 [iU]/L (Normal) Range: 0-40 AST (SGOT) 19 [iU]/L (Normal) Range: 0-40 Bilirubin, Total 0.4 mg/dL (Normal) Range: 0.1-1.2 BUN 14 mg/dL (Normal) Range: 5-26 BUN/Creatinine Ratio 16 (Normal) Range: 8-27 Calcium, Serum 9.4 mg/dL (Normal) Range: 8.5-10.6 Carbon Dioxide, Total 25 mmol/L (Normal) Range: 20-32 Chloride, Serum 106 mmol/L (Normal) Range: 97-108 Creatinine, Serum 0.90 mg/dL (Normal) Range: 0.50-1.50 Globulin, Total 2.6 g/dL (Normal) Range: 1.5-4.5 Glom Filt Rate, Est >60 mL/min (Normal) Range: 60-128 Glucose, Serum 75 mg/dL (Normal) Range: 65-99 If -Austrian >60 mL/min (Normal) Range: 60-128 Comments: Note: Persistent reduction for 3 months or more in an eGFR<60 mL/min/1.73 m2 defines CKD. Patients with eGFR values>/=60 mL/min/1.73 m2 may also have CKD if evidence of persistentproteinuria is present. .Additional information may be found at [email or web address].org. Potassium, Serum 4.3 mmol/L (Normal) Range: 3.5-5.2 Protein, Total, Serum 6.9 g/dL (Normal) Range: 6.0-8.5 Sodium, Serum 142 mmol/L (Normal) Range: 135-145 :43 Lipid Panel (92754) Comments: PATIENT WAS FASTINGPERFORMED BY: LabCoVirtua VoorheesThzqxc5996 [facility] [id number] Cholesterol, Total 245 mg/dL (Abnormal) Range: 100-199 Comment SPR (Normal) Comments: If initial LDL-cholesterol result is >100 mg/dL, assess forrisk factors. HDL Cholesterol 99 mg/dL (Abnormal) Range: 40-59 Comments: HDL cholesterol values >59 mg/dL are associated with reduced cardiacrisk. LDL Cholesterol Calc 133 mg/dL (Abnormal) Range: 0-99 LDL/HDL Ratio 1.3 {ratio_units} (Normal) Range: 0.0-3.2 Triglycerides 66 mg/dL (Normal) Range: 0-149 VLDL Cholesterol Esau 13 mg/dL (Normal) Range: 5-40 03-Kkk-596467:47 Urinalysis, Office (85491) UA - BILIRUBIN Negative (Normal) UA - BLOOD Non Hemolyzed Trace (Normal) UA - GLUCOSE Negative (Normal) UA - KETONES Negative mg/dL (Normal) UA - LEUKOCYTE ESTERASE Negative (Normal) Comments: aw UA - NITRITE Negative (Normal) UA - PH 7.0 (Normal) UA - PROTEIN Negative mg/dL (Normal) UA - SPECIFIC GRAVITY 1.005 (Normal) URINE UROBILINGN KATHRYN TIMED Normal mg/dL (Normal) 41-Tjy-266069:02 Urinalysis, Office (74560) UA - BILIRUBIN Negative (Normal) UA - BLOOD Non Hemolyzed Trace (Normal) UA - GLUCOSE Negative (Normal) UA - KETONES Negative mg/dL (Normal) UA - LEUKOCYTE ESTERASE Moderate (Normal) UA - NITRITE Negative (Normal) UA - PH 6.0 (Normal) UA - PROTEIN Negative mg/dL (Normal) UA - SPECIFIC GRAVITY 1.010 (Normal) URINE UROBILINGN KATHRYN TIMED 2 mg/dL (Normal) :45 Urinalysis, Office (76239) UA - BILIRUBIN Negative (Normal) UA - BLOOD Non Hemolyzed Trace (Normal) UA - GLUCOSE Negative (Normal) UA - KETONES Negative mg/dL (Normal) UA - LEUKOCYTE ESTERASE Trace (Normal) UA - NITRITE Negative (Normal) UA - PH 7.5 (Normal) UA - PROTEIN Negative mg/dL (Normal) UA - SPECIFIC GRAVITY 1.010 (Normal) URINE UROBILINGN KATHRYN TIMED Normal mg/dL (Normal) :29 CBCD,SMEAR DIFF CELLS COUNTED 100 (Normal) EOS 4 % (Normal) Range: 0-5 HCT 39.5 % (Normal) Range: 37-47 HGB 13.4 g/dL (Normal) Range: 12.0-16.0 LYMPH 22 % (Normal) Range: 19-41 MCH 30.2 pg (Normal) Range: 27.0-32.0 MCHC 34.0 g/dL (Normal) Range: 32-36 MCV 88.7 fL (Normal) Range: 81-99 MONOCYTE 7 % (Normal) Range: 0-10 PLT 326 K/mm3 (Normal) Range: 150-450 PLT EST SeeNote (Normal) Comments: Result: ADEQUATE RBC 4.45 {M/mm3} (Normal) Range: 4.2-5.4 RDW 13.4 % (Normal) Range: 11.6-14.6 RED CELL MORPH SeeNote {NORMAL} (Normal) Comments: Result: NORM C&C SEGS 67 % (Normal) Range: 47-70 WBC 5.6 K/mm3 (Normal) Range: 4.4-11.0 :29 COMP METABOLIC A/G 1.2 {RATIO} (Normal) Range: 0.9-2.4 ALB 3.9 g/dL (Normal) Range: 3.4-5.0 ALK P 87 U/L (Normal) Range: 50-136 ALT 42 [iU]/L (Normal) Range: 30-65 AST 15 U/L (Normal) Range: 15-37 BUN 14 mg/dL (Normal) Range: 7-18 BUN/CRE 14.0 {RATIO} (Normal) Range: 10-20 CA 8.7 mg/dL (Normal) Range: 8.5-10.1 CL 105 mmol/L (Normal) Range: 98-107 CO2 28.0 mmol/L (Normal) Range: 22.0-29.0 CREAT,SERUM 1.0 mg/dL (Normal) Range: 0.6-1.0 GAP 8 (Normal) Range: 5-15 GLOB 3.2 g/dL (Normal) Range: 2.3-3.5 GLU 80 mg/dL (Normal) Range: 70-110 K 3.6 mmol/L (Normal) Range: 3.5-5.1 NA 141 mmol/L (Normal) Range: 136-145 T BILI 0.57 mg/dL (Normal) Range: 0.00-1.00 T PROT 7.1 g/dL (Normal) Range: 6.4-8.2 :29 COMPLETE UA BACTERIA 0 SEEN {/hpf} (Normal) BILIRUBIN URINE SeeNote (Normal) Comments: Result: NEGATIVE CLARITY CLOUDY (Normal) COLOR YELLOW (Normal) GLUCOSE, UR SeeNote (Normal) Comments: Result: NEGATIVE KETONE UR SeeNote mg/dL (Normal) Comments: Result: NEGATIVE LEUK ESTERASE 1+ (Abnormal) MUCUS, URINE 0 SEEN {/hpf} (Normal) NITRITE UR SeeNote (Normal) Comments: Result: NEGATIVE OCCULT BLOOD-UR 1+ (Abnormal) pH UR 7.0 (Normal) Range: 5.0-8.0 PROT DIPSTX SeeNote (Normal) Comments: Result: NEGATIVE RBC-UA SeeNote {/hpf} (Normal) Range: 0-5 Comments: Result: 0-5 SEEN SP.GR. DIPSTX 1.010 (Normal) Range: 1.002-1.030 SQUAM EPI SeeNote {/hpf} (Normal) Range: 5-10 Comments: Result: 0-5 SEEN UROBILI 0.2 EU/dl (Normal) Range: 0.2 - 1.0 WBC SeeNote {/hpf} (Normal) Range: 0-5 Comments: Result: 0-5 SEEN :29 CULTURE, URINE Comments: PLEASE ADD TO UA COLLECTED 10/14/06 0829. PLEASE CALL LAB IMMEDIATELY FOR ADD-ON'S. ORDER RECEIVED ON FAX MACHINE 10/15/06 @ 8425 JUST PRIOR TOURINES FROM 10/14/06 BEING DISCARDED. URINE CULTURE See Note {CFU/mL} (Normal) Comments: COLONY COUNT <1000 ORGANISM 1: MIXED GRAM POSITIVE ORGANISMS :29 LIPID CHOL 231 mg/dL (Abnormal) Comments: <200 mg/dL Desirable 200-240 mg/dL Borderline >240 mg/dL High Risk HDL 76 mg/dL (Normal) Comments: Reference Range HDL <40 mg/dL Low HDL Cholesterol HDL >or= 60 mg/dL High HDL Cholesterol LDL 143 mg/dL (Abnormal) Range: 0-130 TRIG 62 mg/dL (Normal) Comments: Serum Triglycerides Reference Interval Normal <150 mg/dL Borderline high 150 - 199 mg/dL High 200 - 499 mg/dL Very High > or = 500 mg/dL VLDL 12 mg/dL (Normal) Range: 5-40 :29 TSH 2.29 {uIU/mL} (Normal) Range: 0.34-4.82 :09 TIBIA & FIBULA,2 VIEWS Radiology Report See Note (Normal) Comments: Exam Number: [id number] 4 VIEWS OF THE RIGHT KNEE AP, lateral, tunnel view, patellar view. Being done for pain. There is mild pointing of the tibial spines. No fracture or effusionis noted. Bony trab ecular pattern and soft tissues are unremarkable. IMPRESSIONMild degenerative changes. AP AND LATERAL RIGHT TIB/FIB Being done for pain. What is seen of the knee and ankle is unremarkable. No fractures areseen. Bony trabecular pattern and soft tissues are unremarkable. IMPRESSIONNo acute change identified. Reported By: ESTEFANÍA COPE M.D. :08 KNEE,4 OR MORE VIEWS Radiology Report See Note (Normal) Comments: Exam Number: [id number] 4 VIEWS OF THE RIGHT KNEE AP, lateral, tunnel view, patellar view. Being done for pain. There is mild pointing of the tibial spines. No fracture or effusionis noted. Bony trab ecular pattern and soft tissues are unremarkable. IMPRESSIONMild degenerative changes. AP AND LATERAL RIGHT TIB/FIB Being done for pain. What is seen of the knee and ankle is unremarkable. No fractures areseen. Bony trabecular pattern and soft tissues are unremarkable. IMPRESSIONNo acute change identified. Reported By: ESTEFANÍA COPE M.D. :52 CBC HCT 38.4 % (Normal) Range: 37-47 HGB 13.1 g/dL (Normal) Range: 12.0-16.0 MCH 30.3 pg (Normal) Range: 27.0-32.0 MCHC 34.2 g/dL (Normal) Range: 32-36 MCV 88.4 fL (Normal) Range: 81-99 PLT 366 K/mm3 (Normal) Range: 150-450 RBC 4.34 {M/mm3} (Normal) Range: 4.2-5.4 RDW 13.0 % (Normal) Range: 11.6-14.6 WBC 5.0 K/mm3 (Normal) Range: 4.4-11.0 :52 COMP METABOLIC A/G 1.1 {RATIO} (Normal) Range: 0.9-2.4 ALB 3.9 g/dL (Normal) Range: 3.4-5.0 ALK P 90 U/L (Normal) Range: 50-136 ALT 36 [iU]/L (Normal) Range: 30-65 AST 16 U/L (Normal) Range: 15-37 BUN 13 mg/dL (Normal) Range: 7-18 BUN/CRE 13.0 {RATIO} (Normal) Range: 10-20 CA 9.0 mg/dL (Normal) Range: 8.5-10.1 CL 106 mmol/L (Normal) Range: 98-107 CO2 29.2 mmol/L (Abnormal) Range: 22.0-29.0 CREAT,SERUM 1.0 mg/dL (Normal) Range: 0.6-1.0 GAP 5 (Normal) Range: 5-15 GLOB 3.4 g/dL (Normal) Range: 2.3-3.5 GLU 93 mg/dL (Normal) Range: 70-110 K 3.7 mmol/L (Normal) Range: 3.5-5.1 NA 140 mmol/L (Normal) Range: 136-145 T BILI 0.47 mg/dL (Normal) Range: 0.00-1.00 T PROT 7.3 g/dL (Normal) Range: 6.4-8.2 :52 PFLIP CHOL 208 mg/dL (Abnormal) Comments: <200 mg/dL Desirable 200-240 mg/dL Borderline >240 mg/dL High Risk HDL 80 mg/dL (Normal) Comments: Reference Range HDL <40 mg/dL Low HDL Cholesterol HDL >or= 60 mg/dL High HDL Cholesterol LDL 122 mg/dL (Normal) Range: 0-130 TRIG 32 mg/dL (Normal) Comments: Serum Triglycerides Reference Interval Normal <150 mg/dL Borderline high 150 - 199 mg/dL High 200 - 499 mg/dL Very High > or = 500 mg/dL VLDL 6 mg/dL (Normal) Range: 5-40 09-Qxl-903089:27 C-REACTIVE PROT 16.90 mg/L (Abnormal) Range: 0.0-6.0 Comments: Test performed using the Dimension C-Reactive ProteinExtended Range assay method. This assay meets the AHA/CDC 2003 recommendations fordetermining patients at high risk for cardiovasculardisease. Reference: High risk CRP >3.0 mg/L 81-Nmt-258057:27 CBCD,SMEAR DIFF BASOPHIL 1 % (Normal) Range: 0-1 CELLS COUNTED 100 (Normal) EOS 3 % (Normal) Range: 0-5 HCT 38.7 % (Normal) Range: 37-47 HGB 13.5 g/dL (Normal) Range: 12.0-16.0 LYMPH 36 % (Normal) Range: 19-41 MCH 30.7 pg (Normal) Range: 27.0-32.0 MCHC 34.8 g/dL (Normal) Range: 32-36 MCV 88.1 fL (Normal) Range: 81-99 MONOCYTE 7 % (Normal) Range: 0-10 PLT 348 K/mm3 (Normal) Range: 150-450 PLT EST SeeNote (Normal) Comments: Result: ADEQUATE RBC 4.40 {M/mm3} (Normal) Range: 4.2-5.4 RDW 13.4 % (Normal) Range: 11.6-14.6 RED CELL MORPH SeeNote {NORMAL} (Normal) Comments: Result: NORM C&C SEGS 53 % (Normal) Range: 47-70 WBC 4.6 K/mm3 (Normal) Range: 4.4-11.0 11-Ngy-634982:27 ESR SED RATE 7 mm/h (Normal) Range: 0-30 Plan of Care Name Dates Details Instructions Wart : Punch Biopsy without Epi Indication: Wart BMI 24.0-24.9, adult : Eprescribed prescriptions (G8553) Indication: BMI 24.0-24.9, adult BMI 25.0-25.9,adult : Mammogram *: gynecological health Indication: BMI 25.0-25.9,adult UTI symptoms : Follow up if no improvement or if symptoms worsen Indication: UTI symptoms Well woman exam : Eprescribed prescriptions (G8553) Indication: Well woman exam Knee pain : Bursitis: knee Indication: Knee pain Knee pain : Eprescribed prescriptions (G8553) Indication: Knee pain Knee pain : Knee Injections Indication: Knee pain Benign essential hypertension : Eprescribed prescriptions (G8553) Indication: Benign essential hypertension Hypercholesterolemia : Fats in the Diet: Good and Bad Recommendations for a Healthy Diet *: cholesterol Indication: Hypercholesterolemia Urinary frequency : Reviewed Lab Indication: Urinary frequency Urinary frequency : follow up for recheck urine 1 week after complete antibiotic Indication: Urinary frequency Urinary frequency : *UTI treatment Indication: Urinary frequency Urinary frequency : Water in diet, brief version Indication: Urinary frequency Benign essential hypertension : Follow up after lab work completed Indication: Benign essential hypertension Benign essential hypertension : Follow up in 6 months Indication: Benign essential hypertension Benign essential hypertension : Dietary Approaches to Stop Hypertension (The DASH Diet): dietary approaches to stop hypertension Indication: Benign essential hypertension Benign essential hypertension : Dietary Approaches to Stop Hypertension (The DASH Diet): high blood pressure Indication: Benign essential hypertension Benign essential hypertension : Follow up in 6 weeks Indication: Benign essential hypertension Benign essential hypertension : Reviewed Lab Indication: Benign essential hypertension Precordial pain : Reviewed Diagnostic Tests Indication: Precordial pain Precordial pain : Reviewed Lab Indication: Precordial pain Benign essential hypertension : Reviewed Diagnostic Tests Indication: Benign essential hypertension Dysuria : *Antibiotic Usage Education - Female Indication: Dysuria Well Female (V70.0) (Renamed from Well Female (I)) : *Well Female Maintenance (KF) Indication: Well Female (V70.0) (Renamed from Well Female (I)) Well Female (V70.0) (Renamed from Well Female (I)) : Pap/Pelvic/Bimanual/Rectal/Breast Exam was done. Indication: Well Female (V70.0) (Renamed from Well Female (I)) Dysuria : *Antibiotic Usage Education - Female Indication: Dysuria Dysuria : UTI treatment Indication: Dysuria Other specified viral infection, in conditions classified elsewhere and of unspecified site : *URI Symptoms Indication: Other specified viral infection, in conditions classified elsewhere and of unspecified site Other specified viral infection, in conditions classified elsewhere and of unspecified site : *URI Treatment Indication: Other specified viral infection, in conditions classified elsewhere and of unspecified site Acute sinusitis, unspecified : *URI Treatment Indication: Acute sinusitis, unspecified Acute sinusitis, unspecified : Antibiotic Usage Education - Female Indication: Acute sinusitis, unspecified Acute sinusitis, unspecified : URI Symptoms Indication: Acute sinusitis, unspecified Hematuria : Reviewed Diagnostic Tests Indication: Hematuria Dysuria : FOLLOW UP IN 2 WEEKS Indication: Dysuria Dysuria : Water in diet, brief version Indication: Dysuria Well woman exam : Self Breast Exam Education Indication: Well woman exam Well woman exam : Pap/Pelvic/Bimanual/Rectal/Breast Exam was done. Indication: Well woman exam Well woman exam : Well Female Maintenance (KF) Indication: Well woman exam Acute sinusitis, unspecified : Antibiotic Usage Education - Female Indication: Acute sinusitis, unspecified Acute sinusitis, unspecified : URI Symptoms Indication: Acute sinusitis, unspecified Acute sinusitis, unspecified : URI treament Indication: Acute sinusitis, unspecified Well Female (V70.0) (Renamed from Well Female (I)) : Pap/Pelvic/Bimanual/Rectal/Breast Exam was done. Indication: Well Female (V70.0) (Renamed from Well Female (I)) Well Female (V70.0) (Renamed from Well Female (I)) : Colon Cancer Screening Indication: Well Female (V70.0) (Renamed from Well Female (I)) Planned Observations CBC with auto diff ([id number])Indication: Benign essential hypertension On: 85-Wta-383066:28 Request METABOLIC PANEL, COMPREHENSIVE ([id number])Indication: Benign essential hypertension On: 42-Azt-445121:28 Request Thin Prep Pap ([id number])Indication: Screening for cervical cancer On: 91-Ctb-036008:00 Request Renal function Panel ([id number])Indication: Benign essential hypertension On: 8-Asg-580752:12 Request Thin Prep Pap ([id number])Indication: Screening for cervical cancer On: 98-Eut-63656:03 Request Thin Prep Pap (54851)Indication: Well woman exam On: 09-Gfi-84977:51 Request CALCIFIDIOL (69023) VIT D 25Indication: Vitamin D deficiency, unspecified On: :28 Request METABOLIC PANEL, COMPREHENSIVE (13820)Indication: Benign essential hypertension On: :28 Request LIPID PANEL (55142)Indication: Benign essential hypertension On: :28 Request CBC W/AUTO DIFF WBC (10447)Indication: Benign essential hypertension On: :28 Request Urinalysis, Office (57622)Indication: Dysuria On: 80-Vgb-509666:27 Request CBC (Auto) ([id number])Indication: Elevated blood-pressure reading without diagnosis of hypertension On: 2-Qiz-447238:23 Request CALCIFIDIOL ([id number]) VIT D 25 On: 0-Dor-656724:23 Request Lipid Panel ([id number])Indication: Elevated blood-pressure reading without diagnosis of hypertension On: 5-Rtz-586493:23 Request Metabolic Panel, Comprehensive ([id number])Indication: Elevated blood-pressure reading without diagnosis of hypertension On: 2-Xwa-550497:23 Request URINALYSIS W MICROSCOPY (37307)Indication: Dysuria On: 6-Aek-772958:50 Request URINALYSIS (85584)Indication: Hypercholesterolemia On: 5-Hly-823389:21 Request Metabolic Panel, Comprehensive (98943)Indication: Hypercholesterolemia On: :47 Request Lipid Panel ([id number])Indication: Hypercholesterolemia On: :47 Request Planned Encounters Medical; [facility] 3 Month FU - On: 26-Mar-2018 10:00 [facility] Mónica Petty MD, MD, Dana M Planned Procedures MAMMOGRAM BREAST LEFT DIAGNOSTIC On: 11-Nov-2017 Intent ([id number])By: Mónica Petty MD, MD, Dana M LEFT BREAST ULTRASOUND ([id number])By: On: 11-Nov-2017 Intent Mónica Petty MD, MD, Dana M Pap Smear, Medicare ([id number])By: On: 27-Oct-2017 Intent Mónica Petty MD, MD, Dana M ELECTROCARDIOGRAM, COMPLETE (ECG) On: 22-Oct-2016 Intent ([id number])By: Mónica Petty MD Comments: see scanned document of test done to see results reviewed today with patient Mónica HORNER SCREENING DIGITAL TOMOSYNTHESIS OF On: 23-Sep-2016 Intent BREAST ([id number])By: Mónica Petty MD, MD, Dana M [place] ([id number])By: Jovanny On: 26-Dec-2015 Intent Mónica HORNER MD, Dana M Comments: Lot:[id number]:12/04/16Dose:1mLRoute:sub q Site:r armGiven By:KATHRINE signed TD VACCINE ADULT ([id number])By: Jovanny On: 26-Dec-2015 Mónica Corona MD, MD, Dana M TDAP VACCINE >7 IM ([id number])By: Jovanny On: 26-Dec-2015 Mónica Corona MD, MD, Dana M Comments: Lot:[id number]:04/13/18Dose:0.5mgRoute:imSite:r arm Given By:KATHRINE signed BILATERAL MAMMOGRAMS ([id number])By: On: 05-Dec-2015 Mónica Mark MD, MD, Dana M MAMMOGRAM, SCREENING, BOTH BREAST On: 20-Oct-2014 Intent ([id number])By: Mónica Petty MD, MD, Dana M Radiology - Knee - LeftBy: Jovanny On: 26-Apr-2014 Mónica Corona MD, MD, Dana M Kenalog Injection, 10 mgm ([id number])By: On: 17-Mar-2014 Intent Jovanny HORNER, Mónica Petty MD, Mónica Mcarthur Kenalog Injection, 10 mgm ([id number])By: On: 17-Mar-2014 Intent Mónica Petty MD, MD, Mónica Mcarthur Kenalog Injection, 10 mgm ([id number])By: On: 17-Mar-2014 Intent Mónica Petty MD, MD, Mónica Mcarthur Kenalog Injection, 10 mgm ([id number])By: On: 17-Mar-2014 Intent Mónica Petty MD, MD, Mónica Mcarthur DEXA SCAN AXIAL SKELETON ([id number])By: On: 19-Oct-2013 Intent Mónica Petty MD, MD, Dana M MAMMOGRAM, SCREENING, BOTH BREASTS On: 22-Apr-2013 Intent ([id number])By: Mónica Petty MD, MD, Dana M Eprescribed prescriptions (G8553)By: On: 22-Apr-2013 Intent Mónica Petty MD, MD, Mónica Mcarthur SPECIMEN HANDLING/TRANSPORT On: 20-Nov-2011 Intent ([id number])By: Mary Lemon LPN ADMNIN, 1 VAC, SNGL/COMBO On: 05-Nov-2011 Intent ([id number])By: Kiera Kim LPN Comments: DECLINED FLU VAC, SPLIT, >3 YEARS, INTRAMUSC On: 05-Nov-2011 Intent ([id number])By: Kiera Kim LPN Comments: DECLINED Spirometry ([id number])By: Jovanny HORNER, On: 07-May-2011 Intent Mónica Gatica MD PNEUM VAC ADLT/IMUMNOSPR, SBC/INTRM On: 07-May-2011 Intent ([id number])By: Mónica Petty MD, MD, Dana M MAMMOGRAM, SCREENING, BOTH BREASTS On: 07-May-2011 Intent ([id number])By: Mónica Petty MD, MD, Dana M DXA, BONE DENSITY, AXIAL SKELETON On: 07-May-2011 Intent ([id number])By: Jovanny HORNER, Mónica Gatica MD Nuclear Stress Test/Stress On: 24-Jul-2010 Intent SPECT/TreadmillBy: Mónica Petty MD, MD, Dana M Echo CompleteBy: Mónica Petty MD On: 24-Jul-2010 Intent Mónica Petty MD MAMMOGRAM, SCREENING, BOTH BREASTS On: 24-Jul-2010 Intent ([id number])By: Mónica Petty MD, MD, Mónica Mcarthur EKG ([id number])By: FLOR Santana On: 24-Jul-[address] - Abdomen & Pelvis (IV Contrast On: 15-Mar-2010 Intent Needed)By: Alma Jansen DO Comments: call wiht wet read to doc movement education specialist MAMMOGRAM, SCREENING, BOTH BREASTS On: 07-Aug-2009 Intent ([id number])By: Mónica Petty MD, MD, Dana M CT - ChestBy: Alma Jansen DO On: 02-Nov-2008 Intent Comments: PE PROTOCOL Pulse Oximetry ([id number])By: Inderjit BECK, On: 02-Nov-2008 Intent Alma Bone Density StudyBy: Jovanny HORNER, On: 02-Aug-2008 Intent Mónica Gatica MD Nuclear Medicine - Bone ScanBy: On: 02-Aug-2008 Intent Mónica Petty MD, MD, Mónica Mcarthur Ultrasound - RenalBy: Kellen Upton CNP On: 01-Feb-2008 Intent E SPECIMEN HANDLING/TRANSPORT On: 04-Jan-2008 Intent ([id number])By: Dang Song Radiology - Hand - RightBy: Ciesa On: 22-Oct-2007 Intent [facility] - Forearm - RightBy: Ciesa On: 22-Oct-2007 Intent [facility] MAMMOGRAM, SCREENING, BOTH BREASTS On: 02-Jul-2007 Intent ([id number])By: Mónica Petty MD, MD, Mónica Mcarthur EKG ([id number])By: FLOR Santana On: 02-Jul-2007 Intent Spirometry ([id number])By: Max, On: 02-Jul-2007 Intent FLOR Pulse Oximetry ([id number])By: Max On: 02-Jul-2007 Intent FLOR Toradol Injection, 30 mg ([id number])By: On: 04-Sep-2006 Intent Mónica Petty MD, MD, Mónica Mcarthur Solu -Medrol Injection, 125 mg On: 01-Apr-2006 Intent ([id number])By: Mónica Petty MD, MD, Dana M MAMMOGRAM, SCREENING, BOTH BREASTS On: 26-Feb-2006 Intent ([id number])By: Mónica Petty MD, MD, Mónica Mcrathur Planned Medications INJECTION, TRIAMCINOLONE ACETONIDE, NOT OTHERWISE SPECIFIED, 10 MG Ordered: 17-Mar-2014 Pending Jovanny HORNER, Mónica Petty MD, Mónica Mcarthur INJECTION, TRIAMCINOLONE ACETONIDE, NOT OTHERWISE SPECIFIED, 10 MG Ordered: 17-Mar-2014 Pending Mónica Petty MD, MD, Mónica Mcarthur INJECTION, TRIAMCINOLONE ACETONIDE, NOT OTHERWISE SPECIFIED, 10 MG Ordered: 17-Mar-2014 Pending Mónica Petty MD, MD, Mónica Mcarthur INJECTION, TRIAMCINOLONE ACETONIDE, NOT OTHERWISE SPECIFIED, 10 MG Ordered: 17-Mar-2014 Pending Mónica Petty MD, MD, Mónica Mcarthur Instructions Name Dates Details Current nonsmoker (Renamed from Current non-smoker) : How to access health information online Indication: Current nonsmoker (Renamed from Current non-smoker) Current nonsmoker (Renamed from Current non-smoker) : How to access health information online - Detail Indication: Current nonsmoker (Renamed from Current non-smoker) Current nonsmoker (Renamed from Current non-smoker) : Patient Instructions Indication: Current nonsmoker (Renamed from Current non-smoker) Well woman exam (Renamed from Encounter for well woman exam) : How to access health information online Indication: Well woman exam (Renamed from Encounter for well woman exam) Well woman exam (Renamed from Encounter for well woman exam) : How to access health information online - Detail Indication: Well woman exam (Renamed from Encounter for well woman exam) Well woman exam (Renamed from Encounter for well woman exam) : Patient Instructions Indication: Well woman exam (Renamed from Encounter for well woman exam) Parkinson disease, symptomatic : How to access health information online Indication: Parkinson disease, symptomatic Parkinson disease, symptomatic : How to access health information online - Detail Indication: Parkinson disease, symptomatic Parkinson disease, symptomatic : Patient Instructions Indication: Parkinson disease, symptomatic Wart : How to access health information online Indication: Xuan Diamondt : How to access health information online - Detail Indication: Xuan Diamondt : Patient Instructions Indication: Xuan Diamondt : How to access health information online Indication: Xuan Diamondt : How to access health information online - Detail Indication: Wart Wart : Patient Instructions Indication: Wart BMI 24.0-24.9, adult : How to access health information online Indication: BMI 24.0-24.9, adult BMI 24.0-24.9, adult : How to access health information online - Detail Indication: BMI 24.0-24.9, adult BMI 24.0-24.9, adult : Patient Instructions Indication: BMI 24.0-24.9, adult BMI 24.0-24.9, adult : How to access health information online Indication: BMI 24.0-24.9, adult BMI 24.0-24.9, adult : How to access health information online - Detail Indication: BMI 24.0-24.9, adult BMI 24.0-24.9, adult : Patient Instructions Indication: BMI 24.0-24.9, adult Benign essential hypertension : How to access health information online Indication: Benign essential hypertension Benign essential hypertension : How to access health information online - Detail Indication: Benign essential hypertension Benign essential hypertension : Patient Instructions Indication: Benign essential hypertension BMI 25.0-25.9,adult : How to access health information online Indication: BMI 25.0-25.9,adult BMI 25.0-25.9,adult : How to access health information online - Detail Indication: BMI 25.0-25.9,adult BMI 25.0-25.9,adult : Patient Instructions Indication: BMI 25.0-25.9,adult Benign essential hypertension : How to access health information online Indication: Benign essential hypertension Benign essential hypertension : How to access health information online - Detail Indication: Benign essential hypertension Benign essential hypertension : Patient Instructions Indication: Benign essential hypertension Well woman exam : How to access health information online Indication: Well woman exam Well woman exam : How to access health information online - Detail Indication: Well woman exam Well woman exam : Patient Instructions Indication: Well woman exam Knee pain : How to access health information online Indication: Knee pain Knee pain : How to access health information online - Detail Indication: Knee pain Knee pain : Patient Instructions Indication: Knee pain Benign essential hypertension : Patient Instructions Indication: Benign essential hypertension Hypercholesterolemia : Patient Instructions Indication: Hypercholesterolemia Urinary frequency : Patient Instructions Indication: Urinary frequency Benign essential hypertension : Patient Instructions Indication: Benign essential hypertension Encounters Office Visit On: 22-Dec-2017 10:54 Encounter Reason: Follow up acute care visit - The patient feeling better since last seen and improving. Patient has been compliant with instructions. Current medication use: no side effects and compliant with dosing reg End: 22-Dec-2017 11:40 imen. Patient sleeps 7 hours per night. Impact of disease: emotional impact-mild. Nutrition: balanced diet and supplemental vitamins. The medical issues the patient is following up for include other (fu on Sinimet).Encounter Diagnosis: BMI 27.0-27.9,adult, Current nonsmoker (Renamed from Current non-smoker), Parkinson disease, symptomatic, Benign essential hypertension [facility] Phone Encounter On: 11-Nov-2017 16:24 Encounter Diagnosis: Parkinson disease, symptomatic End: 11-Nov-2017 16:27 [facility] Office Visit On: 11-Nov-2017 10:53 Encounter Diagnosis: Allergic rhinitis, Hematuria (599.7), Breast cancer, right, Benign essential hypertension, Bradycardia, Current nonsmoker (Renamed from Current non-smoker), BMI 27.0-27.9,adult, GERD (gastroesophageal reflux disease), Asthma, End: 11-Nov-2017 11:18 Mitral valve prolapse, Vitamin D deficiency, unspecified, Chest wall tenderness, Abnormal EKG, Well woman exam (Renamed from Encounter for well woman exam), Atrophic vaginitis, Screening for cervical cancer, Osteoporosis, Hypercholesterolemia, Fam hx-ischem heart disease, CRP elevated, Parkinson disease, symptomatic, BMI 25.0- 25.9,adult, Breast tenderness in female [facility] Office Visit On: 27-Oct-2017 13:30 Encounter Reason: Physical female exam - Last seen between 1-3 months ago. General health: feels well with minor complaints and has decreased energy level. The patient's appetite is normal. Nutrition: supplemental vitami End: 27-Oct-2017 15:09 ns & iron. Exercises 3 days per week. Sleeps on average 5 hours per night. Normal bowel and bladder habits. Safety measures include appropriate use of safety belts and home smoke detectors. Current emotional problems include sleep disturbances. screening, colonoscopy (), screening, mammography (December 2016), screening, Pap smear (2014) and screening, visual acuity (June 2017).Encounter Diagnosis: BMI 27.0-27.9,adult, Current nonsmoker (Renamed from Current non-smoker), Well woman exam (Renamed from Encounter for well woman exam), Hypercholesterolemia, GERD (gastroesophageal reflux disease), Osteoporosis, Fam hx-ischem heart disease, Mitral valve prolapse, Asthma , Hematuria (599.7), Allergic rhinitis, Breast cancer, right, Bradycardia, Benign essential hypertension, Vitamin D deficiency, unspecified, Parkinson disease, symptomatic, CRP elevated, Abnormal EKG, Chest wall tenderness, Screening for cervical cancer, Atrophic vaginitis [facility] Lab Order On: 13-Oct-2017 10:32 Encounter Diagnosis: Urinary tract infection, site not specified End: 13-Oct-2017 10:33 [facility] Office Visit On: 01-Sep-2017 13:29 Encounter Reason: Follow up for chronic medical issues - The patient feels well with minor complaints and has decreased energy level. Patient has been compliant with instructions. Current medication use: no side effects End: 02-Sep-2017 7:43 and compliant with dosing regimen. Patient sleeps 7 hours per night. Impact of disease: emotional impact-mild. Nutrition: balanced diet and supplemental vitamins. The medical issues the patient is follo wing up for include asthma, cardiac issues, gastric reflux, high blood pressure, osteoporosis/osteopenia and other (hx. of breast cancer, Parkinson's, vitamin D def., allergic rhinitis).Encounter Diagnosis: BMI 25.0-25.9,adult, Current nonsmoker (Renamed from Current non-smoker), Breast cancer, right, Parkinson disease, symptomatic, Mitral valve prolapse, Asthma, Hematuria (599.7), Fam hx- ischem heart disease, Hypercholesterolemia, GERD (gastroesophageal reflux disease), Bradycardia, Malignant neoplasm of upper-outer quadrant of right breast in female, estrogen receptor positive, Osteoporosis, Benign essential hypertension, Allergic rhinitis, Vitamin D deficiency, unspecified, Well woman exam (Renamed from Encounter for well woman exam), Screening for cervical cancer, Well woman exam, Wart, Screening mammogram, encounter for, BMI 24.0- 24.9, adult [facility] Office Visit On: 20-Mar-2017 8:32 Encounter Diagnosis: Malignant neoplasm of upper-outer quadrant of right breast in female, estrogen receptor positive, Osteoporosis End: 20-Mar-2017 8:38 [facility] Lab Order On: 03-Jan-2017 13:46 Encounter Diagnosis: Benign essential hypertension End: 03-Jan-2017 13:48 [facility] Office Visit On: 12-Dec-2016 10:10 Encounter Diagnosis: Wart End: 13-Dec-2016 7:02 [facility] Office Visit On: 05-Dec-2016 10:54 Encounter Diagnosis: BMI 25.0-25.9,adult, Wart, Current nonsmoker (Renamed from Current non-smoker) End: 06-Dec-2016 6:59 [facility] Office Visit On: 26-Nov-2016 10:50 Encounter Diagnosis: BMI 25.0-25.9,adult, Wart, Current nonsmoker (Renamed from Current non-smoker) End: 26-Nov-2016 11:41 [facility] Annotation/Addendum On: 22-Oct-2016 13:49 Encounter Diagnosis: Bradycardia End: 22-Oct-2016 13:50 [facility] Annotation/Addendum On: 22-Oct-2016 11:34 Encounter Diagnosis: Unspecified Diagnosis End: 22-Oct-2016 11:37 [facility] Office Visit On: 22-Oct-2016 10:40 Encounter Reason: Follow up Meds - The patient feels well with no complaints, has good energy level and is sleeping well. Patient has been compliant with instructions. Current medication use: no side effects and complian End: 22-Oct-2016 11:25 t with dosing regimen. Patient sleeps 7 hours per night. Nutrition: balanced diet., [ADDITIONAL REASON] Follow up tests - Date: (08/2016). Encounter Diagnosis: Allergic rhinitis, Current nonsmoker (Renamed from Current non-smoker), BMI 24.0-24.9, adult, Asthma, Benign essential hypertension, Parkinson disease, symptomatic [facility] Phone Encounter On: 25-Sep-2016 13:20 [facility] End: 25-Sep-2016 13:41 Office Visit On: 23-Sep-2016 11:24 Encounter Reason: Annual Medicare Exam - The patient had reviewed and updated the family history, medication/s, past medical history and social history. Yes the patient did have a mini mental status exam done today. The End: 23-Sep-2016 12:45 activities of daily living the patient needs help with are housework (has hired someone). The patient has driven in past 6 months and put area rugs through house. The patient has completed the following preventative measures: PAP smear (), mammography () and colonoscopy (2006). The patient does have durable power of employee benefits attorney and living will. The patient has noticed lack of energy. Other p roviders contributing to the patient's care are gastrologist (Dr. Boyle) and other: (Dr. Bishop opthalm ??Dr. Street neuro).Encounter Diagnosis: BMI 24.0-24.9, adult, Current nonsmoker (Renamed from Current non-smoker), Encounter for routine adult medical exam with abnormal findings, Screening for colon cancer, Hypercholesterolemia, Mitral valve prolapse, GERD (gastroesophageal reflux disease), Osteoporosis, Fam hx-ischem heart disease, Vitamin D deficiency, unspecified, Asthma, Benign essential hypertension, Hematuria (599.7), Allergic rhinitis, Parkinson disease, symptomatic, Screening mammogram, encounter for [facility] Office Visit On: 19-Feb-2016 10:54 Encounter Reason: Follow up, Diagnostic Procedure Results - Diagnostic tests include other (labs ). Date: (). Follow up visit with no current symptoms.Encounter Diagnosis: Benign essential hypertension, End: 19-Feb-2016 11:26 Current nonsmoker (Renamed from Current non-smoker) [facility] Office Visit On: 02-Jan-2016 8:01 [facility] End: 02-Jan-2016 8:04 Office Visit On: 26-Dec-2015 13:22 Encounter Diagnosis: BMI 25.0-25.9,adult, Well woman exam (Renamed from Encounter for well woman exam), Current nonsmoker (Renamed from Current non-smoker), GERD (gastroesophageal reflux disease), Osteoporosis, Mitral valve prolapse, Asthma, End: 27-Dec-2015 14:06 Benign essential hypertension, Vitamin D deficiency, unspecified, Allergic rhinitis, Hypercholesterolemia, Screening mammogram, encounter for, Fam hx-ischem heart disease, Hematuria (599.7), Screening for cervical cancer, Parkinson disease, symptomatic, Well woman exam, Precordial pain, Abnormal thyroid stimulating hormone (TSH) level, Need for Tdap vaccination (Renamed from Need for ffiaonysrz-dzzuimt-mrndnollh (Tdap) vaccine, adult/adolescent), Need for zoster vaccination [facility] Phone Encounter On: 05-Dec-2015 8:47 Encounter Diagnosis: Screening mammogram, encounter for End: 05-Dec-2015 8:57 [facility] Office Visit On: 10-Aug-2015 9:45 Encounter Reason: Follow up for chronic medical issues - The patient has decreased energy level and is sleeping well. Patient has been compliant with instructions. Current medication use: no side effects, compliant with End: 11-Aug-2015 6:39 dosing regimen and considered effective by patient. Patient sleeps 7 hours per night. Impact of disease: emotional impact-mild. Nutrition: balanced diet and supplemental vitamins. The medical issues the patient is following up for include cardiac issues, gastric reflux, high blood pressure, high cholesterol, osteoporosis/osteopenia and other (Parkinson's, allergic rhinitis, vitamin d def. ).Encounter Diagnosis: Benign essential hypertension, Current nonsmoker (Renamed from Current non-smoker), Hypercholesterolemia, Fam hx- ischem heart disease, Vitamin D deficiency, unspecified, Allergic rhinitis, Asthma, GERD (gastroesophageal reflux disease), Osteoporosis, Mitral valve prolapse, UTI symptoms, Well woman exam, Hematuria (599.7), Screening for cervical cancer, Parkinson disease, symptomatic [facility] Lab Order On: 08-Aug-2015 8:46 Encounter Diagnosis: Benign essential hypertension (401.1), Hypercholesterolemia, Vitamin D deficiency, unspecified End: 08-Aug-2015 8:48 [facility] Phone Encounter On: 16-Feb-2015 11:41 Encounter Diagnosis: Unspecified Diagnosis End: 16-Feb-2015 11:48 [facility] Office Visit On: 04-Jan-2015 15:48 Encounter Reason: UTI - The urinary symptoms are described as painful urination, frequency, urgency and flank pain. The symptoms have been occurring for 1 week and have been constant. The symptoms have been associated w End: 04-Jan-2015 16:01 ith low back pain. There is no history of sexual contact with a person having an STD, use of tampons, possible vaginal foreign body, douching, use of contraceptive devices, sexual assault, trauma, vulvo vaginal exposure to chemical irritants, sexual contact with a person exposed to an STD, recent catheterization, new sexual partner or current catheterization. There is a medical history of recurrent uri nary tract infections. The patient has been using antibiotics.Encounter Diagnosis: UTI symptoms [facility] Office Visit On: 15-Nov-2014 8:01 Encounter Diagnosis: Screening for cervical cancer End: 15-Nov-2014 8:04 [facility] Office Visit On: 20-Oct-2014 9:22 Encounter Reason: Well Women Exam - The patient has decreased energy level (just dx w parkinsons). Pap smear: date of last pap: (like 5 years ago). Patient exercises 3 - 4 times per week. The patient's libido is normal. End: 20-Oct-2014 10:05 The patient reports that she performs monthly self breast exam. Previous evaluations: cervical treatment (unspecified) (ablation 1999). Menstruation: Last menstrual period date: (1999 after ablation).Encounter Diagnosis: Well Woman Exam (V72.31) (Pap,Mammo,Routine Female) (Renamed from Well Woman V72.31 (p,m)) [facility] Annotation/Addendum On: 26-Apr-2014 14:56 Encounter Diagnosis: Knee pain (719.46) End: 26-Apr-2014 15:00 [facility] Office Visit On: 26-Apr-2014 14:11 Encounter Reason: Knee Pain - This condition occurred without any known injury. Symptoms include knee pain, decreased range of motion and difficulty bearing weight, while symptoms do not include swelling or warmth. Sympt End: 26-Apr-2014 14:52 oms are located in the left knee. The patient describes the pain as sharp and aching. Onset was 2 month(s) ago. The patient describes symptoms as worsening. Symptoms are exacerbated by motion at the kne e and weight bearing. Current treatment includes application of heat, application of ice, restricted activity and nonsteroidal anti-inflammatory drugs.Encounter Diagnosis: Knee pain (719.46) [facility] Office Visit On: 17-Mar-2014 12:09 Encounter Reason: Knee Pain - This condition occurred without any known injury. The injury involved the left knee. This occurred 30 day(s) ago. Symptoms include knee pain, warmth, decreased range of motion, difficulty be End: 17-Mar-2014 12:55 aring weight and difficulty ambulating. Symptoms are located in the left knee. The pain radiates to the left hip. The patient describes the pain as burning. Onset was gradual. The symptoms occur constantly.Encounter Diagnosis: Knee pain (719.46) [facility] Office Visit On: 19-Oct-2013 10:20 Encounter Reason: Follow up tests - Date: (10.11.13)., [ADDITIONAL REASON] Follow up for chronic medical issues - The patient feels well with no complaints End: 19-Oct-2013 11:30 , has good energy level and is sleeping well. Patient has been compliant with instructions. Current medication use: experiencing side effects (stopped taking Actonel....thought was having a heart attack back in January. had heart cath, everything came back clear. Jose Juan decided it was d/t actonel so stopped taking) and compliant with dosing regimen. Patient sleeps 5 hours per night. Impact of disease: emotional impact-mild. Nutrition: balanced diet and supplemental vitamins. The medical issues the patient is following up for include asthma, cardiac issues, gastric reflux, high blood pressure, high c holesterol, osteoporosis/osteopenia and other (vitamin d def. ). Encounter Diagnosis: Hypercholesterolemia (272.0), Benign essential hypertension (401.1), Gerd (530.81), Allergic rhinitis (477.9), Mitral Valve Prolapse (746.9), Well Woman Exam (V72.31) (Pap,Mammo,Routine Female) (Renamed from Well Woman V72.31 (p,m)), Hematuria (599.7), Vitamin D deficiency, unspecified (268.9), Asthma (493.11), Osteoporosis (733.00), HX, FAMILY, ISCHEMIC HEART DISEASE (V17.3) [facility] Office Visit On: 22-Apr-2013 12:46 Encounter Reason: Follow up for chronic medical issues - The patient feels well with no complaints, has good energy level and is sleeping well. Patient has been compliant with instructions. Current medication use: experi End: 22-Apr-2013 13:51 encing side effects (stopped taking Actonel....thought was having a heart attack back in January. had heart cath, everything came back clear. Jose Juan decided it was d/t actonel so stopped taking) and com pliant with dosing regimen. Patient sleeps 5 hours per night. Impact of disease: emotional impact-mild. Nutrition: balanced diet and supplemental vitamins. The medical issues the patient is following up for include asthma, cardiac issues, gastric reflux, high blood pressure, high cholesterol, osteoporosis/osteopenia and other (vitamin d def. ).Encounter Diagnosis: Hypercholesterolemia (272.0), Urinary frequency (788.41), Mitral Valve Prolapse (746.9), Well Woman Exam (V72.31) (Pap,Mammo,Routine Female) (Renamed from Well Woman V72.31 (p,m)), Gerd (530.81), Allergic rhinitis (477.9), Hematuria (599.7), Benign essential hypertension (401.1), Stress Reaction (308.4), Osteoporosis (733.00), HX, FAMILY, ISCHEMIC HEART DISEASE (V17.3), Vitamin D deficiency, unspecified (268.9), Asthma (493.11) [facility] Office Visit On: 14-May-2012 12:30 Encounter Reason: Follow up, Diagnostic Procedure Results - Diagnostic tests include other (labs ). Date: (04-22-12). Follow up visit with no current symptoms.Encounter Diagnosis: Benign essential hypertension (401.1), Mitral Valve Prolapse (746.9), End: 14-May-2012 13:16 Asthma (493.11), Hypercholesterolemia (272.0), Vitamin D deficiency, unspecified (268.9), Osteoporosis (733.00), HX, FAMILY, ISCHEMIC HEART DISEASE (V17.3), Well Woman Exam (V72.31) (Pap,Mammo,Routine Female) (Renamed from Well Woman V72.31 (p,m)) , Stress Reaction (308.4) [facility] Office Visit On: 20-Nov-2011 13:54 Encounter Reason: Urinary problems - The onset of the urinary problems has been sudden and they have been occurring in a persistent pattern for 1 week. The course has been constant. The urinary problems are described as End: 20-Nov-2011 14:18 moderate. The urinary problem is characterized as frequency and urgency. Note for Urinary problems: Some burning on urination Encounter Diagnosis: Urinary frequency (788.41) [facility] Office Visit On: 05-Nov-2011 13:03 Encounter Reason: Follow up tests - Date: (10.22.11)., [ADDITIONAL REASON] Follow up for chronic medical issues - The patient feels well with minor complai End: 05-Nov-2011 13:31 nts, has decreased energy level and is sleeping poorly. Patient has been compliant with instructions. Current medication use: no side effects and compliant with dosing regimen. Patient sleeps 5 hours pe r night. Impact of disease: emotional impact-mild. Nutrition: balanced diet and supplemental vitamins. The medical issues the patient is following up for include asthma, cardiac issues, gastric reflux, high blood pressure, high cholesterol, osteoporosis/osteopenia and other (vitamin d def. ). 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), Abnormal blood chemistry (790.6), Vitamin D deficiency, unspecified (268.9), Knee pain (719.46), Hypercholesterolemia (272.0), Wheezing (786.07), Rash (782.1), Allergic rhinitis (477.9), Cough (786.2), Open wound of fingers, without mention of complication (883.0), SOB (786.05), Forearm Pain (719.43) [facility] Office Visit On: 17-Sep-2011 11:53 Encounter Reason: Follow up tests - Date: (bone dx September 2011).Encounter Diagnosis: Osteoporosis (733.00) End: 17-Sep-2011 12:54 [facility] Office Visit On: 15-Jul-2011 12:55 Encounter Reason: Follow up Hypertension - The symptoms have been associated with family history of hypertension, while the symptoms have not been associated with anxiety, excessive caffeine intake, obesity, sleep apnea End: 15-Jul-2011 13:23 symptoms or use of nasal decongestants. blood pressure range : (126/78,138/76, 132/78, 119/76, 142/75, 126/79, 128/84, 133/77).Encounter Diagnosis: Benign essential hypertension (401.1), Gerd (530.81) [facility] Office Visit On: 27-May-2011 13:26 Encounter Reason: Follow up hospital - Reason for ER visit: note: (CP). The patient feels well with no complaints, has good energy level and is sleeping well. Patient has been compliant with instructions. Current medicat End: 27-May-2011 14:14 ion use: no side effects, compliant with dosing regimen and considered effective by patient. Patient sleeps 7 hours per night. Nutrition: balanced diet. The hospital results of the stress test and other (EKG) wereEncounter Diagnosis: Chest pain (786.59), Benign essential hypertension (401.1) [facility] Office Visit On: 07-May-2011 8:37 Encounter Reason: Follow up for chronic medical issues - The patient feels well with minor complaints, has decreased energy level and is sleeping well. Patient has been compliant with instructions. Current medication use End: 07-May-2011 9:24 : no side effects and compliant with dosing regimen. Patient sleeps 7 hours per night. Impact of disease: emotional impact-mild. Nutrition: balanced diet and supplemental vitamins. The medical issues th e patient is following up for include asthma, cardiac issues, gastric reflux, high blood pressure, high cholesterol, osteoporosis/osteopenia and other (vitamin d def. ).Encounter Diagnosis: Benign essential hypertension (401.1), Asthma (493.11), Mitral Valve Prolapse (746.9), HX, FAMILY, ISCHEMIC HEART DISEASE (V17.3), Hypercholesterolemia (272.0), Gerd (530.81), Osteoporosis (733.00), Well Woman Exam (V72.31) (Pap,Mammo,Routine Female) (Renamed from Well Woman V72.31 (p,m)), Knee pain (719.46) [facility] Office Visit On: 06-Nov-2010 9:39 Encounter Reason: Follow up tests - Diagnostic tests include other (labs ). Date: (10-17-10).Encounter Diagnosis: Hematuria (599.7), Hypercholesterolemia (272.0), Asthma (493.11), Vitamin D deficiency, unspecified (268.9), End: 06-Nov-2010 10:02 Elevated Blood Pressure without diagnosis of Hypertension (796.2), Mitral Valve Prolapse (746.9), HX, FAMILY, ISCHEMIC HEART DISEASE (V17.3), Benign essential hypertension (401.1) [facility] Phone Encounter On: 23-Oct-2010 13:13 Encounter Diagnosis: Unspecified Diagnosis End: 23-Oct-2010 13:14 [facility] Office Visit On: 24-Jul-2010 10:32 Encounter Diagnosis: Elevated Blood Pressure without diagnosis of Hypertension (796.2), SYMPTOM, SYNCOPE AND COLLAPSE (780.2), Vitamin D deficiency, unspecified (268.9), Hypercholesterolemia (272.0), Abnormal blood chemistry (790.6), End: 24-Jul-2010 11:30 Well Woman Exam (V72.31) (Pap,Mammo,Routine Female) (Renamed from Well Woman V72.31 (p,m)), Chest pain (786.59), Asthma (493.11) [facility] Office Visit On: 18-Apr-2010 13:19 Encounter Reason: Dysuria - The onset of the dysuria has been sudden and has been occurring in a persistent pattern for 1 week. The course has been increasing. The dysuria is described as moderate. The quality of the husam End: 18-Apr-2010 14:02 n is described as a burning sensation The dysuria is described as being located in the vaginal area (when urinates) and suprapubic area. The dysuria does not radiate. The symptoms have been associated w ith frequency, hematuria and past history of urinary tract infections, while the symptoms have not been associated with chills, fever, flank pain, history of passing a stone, incontinence, urgency, vagi nal discharge or excessive caffeine intake. Note for Dysuria: urinating after intercourse- and despite this relates most of her utis to intercourse- watches her caffeineEncounter Diagnosis: Dysuria (788.1) [facility] Office Visit On: 15-Mar-2010 10:04 Encounter Reason: Abdominal pain - The onset of the pain has been sudden and has been occurring in an intermittent pattern for 2 days. The course has been constant. The pain is described as a mild dull ache. The pain is End: 15-Mar-2010 10:50 described as being located in the left lower quadrant. The pain radiates to the back. The symptoms have no aggravating factors. The symptoms have no relieving factors. The symptoms have been associated with bloody stools, chest pain (pressure off and on so not sure if it is my heart) and diarrhea (some this am), while the symptoms have not been associated with constipation.Encounter Diagnosis: Abdominal Pain,LLQ (789.04), Diverticulitis (562.11) [facility] Office Visit On: 02-Nov-2009 8:41 Encounter Reason: Foot Pain - The onset of the foot pain has been sudden following no specific incident and has been occurring in a persistent pattern for months. The course has been worsening. The foot pain is moderate. End: 02-Nov-2009 9:30 The foot pain is characterized as a dull aching. The foot pain is described as being located in the heel. The foot pain is aggravated by physical activity. The pain has not been relieved by anything. T he symptoms have been associated with swelling. There have been no previous diagnostic tests. There have been no previous evaluations. These has been no previous physical therapy. There have been no pre vious surgeries. There has been no use of assistive devices. Previous medications have included Tylenol. Encounter Diagnosis: Arm Pain (729.5) [facility] Office Visit On: 06-Sep-2009 9:58 Encounter Reason: Well Women Exam - The patient feels well with no complaints ,has good energy level and is sleeping poorly (nothing new, has never slept good). Pap smear: date of last pap: (07/2007). Contraceptive histor End: 06-Sep-2009 10:34 y: The patient is not using any method of contraception at this time. Patient does not exercise. The patient's libido is decreased. The patient reports that she performs monthly self breast exam. Previo us evaluations: cervical treatment (unspecified) (ablation 1999). Menstruation: Last menstrual period date: (1999 after ablation). Encounter Diagnosis: Hematuria (599.7), Well Female (V70.0) (Renamed from Well Female (V70.0) (I)), Urinary tract infection, site not specified (599.0) [facility] Office Visit On: 07-Aug-2009 10:11 Encounter Reason: Follow up, Laboratory Test Results - Date: (07/27). 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 Patient has been compliant with instructions. Current medication use: no side effects ,compliant with dosing regimen and considered effective by End: 15-Jun-2009 13:25 patient. Patient sleeps 7 hours per night. Impact of disease: emotional impact-mild. Nutrition: balanced diet and supplemental vitamins. The medical issues the patient is following up for include UTI. Encounter Diagnosis: Urinary tract infection, site not specified (599.0) [facility] Office Visit On: 05-Jun-2009 13:29 Encounter Reason: UTI - The urinary symptoms are described as painful urination ,frequency ,urgency and burning. The symptoms have been occurring for 3 days and have been increasing. The urine is described as yellow (and End: 05-Jun-2009 13:59 some orange from azo). The symptoms have been associated with nausea and low back pain, while the symptoms have not been associated with fever ,abdominal pain ,chills or vomiting. There is no history o f use of tampons ,douching ,recent catheterization ,new sexual partner or current catheterization. There is a medical history of recurrent urinary tract infections, while there is no history of diabetes ,current ,kidney stones ,menopause or renal disease. The patient has been using pyridium/uristat (azo otc), while the patient denies the use of oral contraceptives ,antibiotics or hormone rep lacement therapy. Note for UTI: she checks bp at home and is good and a fair amount of pain- no feverEncounter Diagnosis: Dysuria (788.1) [facility] Phone Encounter On: 01-May-2009 15:41 Encounter Diagnosis: Unspecified Diagnosis End: 01-May-2009 15:43 [facility] Office Visit On: 27-Apr-2009 11:20 Encounter Reason: Trauma - The onset of the trauma has been sudden and has been occurring in a persistent pattern for 1 weeks. The course has been constant. The trauma is described as moderate. Encounter Diagnosis: End: 27-Apr-2009 11:46 Open wound of fingers, without mention of complication (883.0) [facility] Office Visit On: 26-Dec-2008 16:51 Encounter Reason: Dysuria - The onset of the dysuria has been acute and has been occurring in a persistent pattern for 1 weeks. The course has been increasing. The dysuria is described as moderate. The quality of the husam End: 26-Dec-2008 17:00 n is described as a burning sensation The dysuria is described as being located in the suprapubic area. The dysuria radiates to the right flank. The symptoms have been associated with flank pain. Encounter Diagnosis: DYSURIA, NOS (788.1) [facility] Office Visit On: 02-Nov-2008 8:58 Encounter Reason: Cough - The onset of the cough has been sudden. The cough is characterized as dry. The amount of sputum produced is scanty. The cough occurs all the time. The symptoms are not aggravated by supine postu End: 02-Nov-2008 9:47 re. The symptoms have been associated with headache ,hoarseness ,runny nose and sore throat, while the symptoms have not been associated with fever. , [ADDITIONAL REASON] Shortness of breath - The onset of the shortness of breath has been acute and has been occurring in a persistent pattern for 2 days. The course has been constant. The shortness of b reath is mild to moderate. The shortness of breath occurs with normal activities. The symptoms have been associated with chest pain (atypical -- really in back btw shoulder blades) and coughing, while t he symptoms have not been associated with anxiety or fever / chills. Encounter Diagnosis: SOB (786.05), Viral infection, unspecified (079.99) [facility] Phone Encounter On: 22-Sep-2008 12:39 [facility] End: 22-Sep-2008 12:41 Historical Summary On: 08-Sep-2008 14:16 [facility] End: 08-Sep-2008 14:17 Office Visit On: 01-Sep-2008 9:24 Encounter Reason: Follow up, Diagnostic Procedure Results - Diagnostic tests include bone scan (08-11-08 ) and other (Bone density 08-09-08 ). Date: (08-11-08/08-09-08 ). Follow up visit with no current symptoms. Past medical End: 01-Sep-2008 10:02 history includes asthma ,hypertension and other (Vit d. def., GERD, high cholesterol ). 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 The course has been increasing. The pain is described as moderate. The pain is described as asya End: 02-Aug-2008 11:27 ng located in the left elbow ,left forearm and left hand. The pain is aggravated by reaching ,lifting ,extending elbow and grasping. The pain is relieved by nothing. Encounter Diagnosis: Forearm Pain (719.43), Paget's disease, Elevated Blood Pressure without diagnosis of Hypertension (796.2), Hematuria (599.7) [facility] Office Visit On: 08-Mar-2008 9:40 Encounter Reason: Cough - The onset of the cough has been 1 weeks. The cough is characterized as dry. The amount of sputum produced is scanty. The cough occurs all the time. The symptoms are aggravated by supine posture. End: 08-Mar-2008 10:19 The symptoms have been associated with dysphagia ,dyspnea ,runny nose and wheezing, while the symptoms have not been associated with fever or headache. the color of the sputum is greenish. Encounter Diagnosis: Cough (786.2), Wheezing (786.07), Acute sinusitis, unspecified (461.9) [facility] Office Visit On: 16-Feb-2008 13:31 Encounter Reason: Follow up, Diagnostic Procedure Results - Diagnostic tests include ultrasound (kidney-see face sheet 02/02/08). , [ADDITIONAL REASON] Follow up acute care visit - The patient feeling better since last seen. Patient End: 16-Feb-2008 14:04 has been compliant with instructions. Current medication use: no side effects and compliant with dosing regimen. Patient sleeps 8 hours per night. Impact of disease: no overall impact. Nutrition: danielle martir diet and supplemental vitamins. The medical issues the patient is following up for include All identified problems below ,asthma ,high blood pressure ,UTI and other (Hematuria). Encounter Diagnosis: Hematuria (599.7) [facility] Office Visit On: 01-Feb-2008 8:48 Encounter Reason: Follow up acute care visit - The patient feeling better since last seen. Patient has been compliant with instructions. Current medication use: no side effects and compliant with dosing regimen. Patient End: 01-Feb-2008 9:55 sleeps 6 hours per night. Nutrition: balanced diet. The medical issues the patient is following up for include other (dysuria, hematuria). Encounter Diagnosis: Dysuria (788.1), Hematuria (599.7) [facility] Office Visit On: 14-Jan-2008 8:44 Encounter Reason: Follow up acute care visit - The patient feeling better since last seen. Patient has been compliant with instructions. Current medication use: no side effects and compliant with dosing regimen. Patient End: 14-Jan-2008 9:38 sleeps 8 hours per night. Nutrition: balanced diet. The medical issues the patient is following up for include other (dysuria, hematuria). Encounter Diagnosis: Dysuria (788.1), Hematuria (599.7) [facility] Office Visit On: 04-Jan-2008 10:49 Encounter Reason: Dysuria - The onset of the dysuria has been acute and has been occurring in a persistent pattern for 2 days. The course has been constant. The dysuria is described as moderate. The quality of the pain i End: 04-Jan-2008 12:16 s described as a burning sensation (and pressure) The dysuria is described as being located in the vaginal area. The dysuria does not radiate. The symptoms have been associated with chills ,frequency ,n octuria ,past history of urinary tract infections and urgency, while the symptoms have not been associated with hematuria or history of passing a stone. Encounter Diagnosis: Dysuria (788.1), Hematuria (599.7) [facility] Office Visit On: 22-Oct-2007 15:01 Encounter Reason: Arm pain - The onset of the pain has been acute and has been occurring in a persistent pattern for 1 days. The course has been increasing. The pain is described as moderate. The pain is described as asya End: 22-Oct-2007 16:19 ng located in the right elbow and right forearm. The pain is aggravated by extending elbow and grasping. The pain is relieved by nothing. Encounter Diagnosis: Arm Pain (729.5), Forearm Pain (719.43) [facility] Office Visit On: 22-Jul-2007 11:12 Encounter Reason: Well Women Exam - The patient feels well with no complaints and has good energy level. Pap smear: date of last pap: (). Contraceptive history: The patient is not using any method of contraception End: 22-Jul-2007 11:40 at this time. Patient exercises a weekly. The patient's libido is normal. The patient reports that she performs monthly self breast exam. Calcium intake includes 1500 mg daily supplement. Previous evalu ations: laser vaporation (thermal ablation- 6-7 years ago). Menstruation: Last menstrual period date: (6-7 years ago). Encounter Diagnosis: Well Woman Exam (V72.31) (Pap,Mammo,Routine Female) (Renamed from Well Woman V72.31 (p,m)) [facility] Erroneous Entry On: 09-Jul-2007 11:46 [facility] End: 09-Jul-2007 11:52 Office Visit On: 02-Jul-2007 11:04 Encounter Reason: Follow up for chronic medical issues - The patient feels well with minor complaints ,has decreased energy level and is sleeping well. Patient has been compliant with instructions. Current medication use End: 02-Jul-2007 11:29 : no side effects ,compliant with dosing regimen and considered effective by patient. Patient sleeps 6 hours per night. Impact of disease: emotional impact-mild. Nutrition: balanced diet. The medical is sues the patient is following up for include asthma ,cardiac issues ,gastric reflux ,high blood pressure and high cholesterol. blood pressure range : (122/70). Encounter Diagnosis: Asthma (493.11), Elevated Blood Pressure without diagnosis of Hypertension (796.2), Hypercholesterolemia (272.0), Dysuria (788.1), Mitral Valve Prolapse (746.9), Knee pain (719.46), Hematuria (599.7), Acute sinusitis, unspecified (461.9), Rash (782.1), Gerd (530.81), Allergic rhinitis (477.9), Well Female (V70.0) (Renamed from Well Female (V70.0) (I)) [facility] Nurse Visit On: 25-Dec-2006 10:46 Encounter Diagnosis: Dysuria (788.1) End: 25-Dec-2006 21:46 [facility] Nurse Visit On: 16-Dec-2006 13:52 Encounter Reason: Dysuria - The onset of the dysuria has been sudden and has been occurring in a persistent pattern for 1 days. The course has been increasing. The dysuria is described as moderate. The quality of the husam End: 16-Dec-2006 14:09 n is described as a burning sensation and stabbing The symptoms have been associated with frequency and past history of urinary tract infections, while the symptoms have not been associated with hematuria or vaginal discharge. Encounter Diagnosis: Dysuria (788.1) [facility] Office Visit On: 23-Oct-2006 9:20 Encounter Reason: Follow up, Laboratory Test Results - Lab results: abnormal blood lipids. Date: (10-14-06). Current symptoms/reason for visit include/s Follow up visit with no current symptoms. There is a family history End: 24-Oct-2006 13:12 of cardiovascular disease. Past medical history includes elevated cholesterol ,elevated triglycerides and hypertension. Encounter Diagnosis: Knee pain (719.46), Hypercholesterolemia (272.0), Elevated Blood Pressure without diagnosis of Hypertension (796.2), Hematuria (599.7) [facility] Office Visit On: 04-Sep-2006 7:36 Encounter Reason: Knee Pain - The onset of the knee pain has been sudden following no specific incident and has been occurring in a persistent pattern for weeks. The course has been gradually worsening. The knee pain is End: 04-Sep-2006 7:54 mild to moderate. The knee pain is characterized as a dull aching. The knee pain is described as being located in the entire knee (right). The knee pain is aggravated by work duties ,squatting ,kneeling ,climbing ,stairs and prolonged standing. There were no relieving factors. The symptoms have been associated with joint swelling ,medial pain ,lateral pain ,decreased ROM ,warmth ,burning sensation ,di fficulty arising from chair and difficulty going up and down stairs. Note for Knee Pain: no injury 10 years ago had it, gone, after play with grandchild, no lock, pop, giveoutfEncounter Diagnosis: Elevated Blood Pressure without diagnosis of Hypertension (796.2), Asthma (493.11), Knee pain (719.46) [facility] Office Visit On: 08-May-2006 10:52 Encounter Reason: Sinus pain - The onset of the pain has been acute and has been occurring in a persistent (feels like there is somthing in the left narres not sure if just inflamation or if there is a polyp) pattern for End: 08-May-2006 11:09 days. The course has been constant. The pain is characterized as moderate. The pain is described as being located in the left side. Encounter Diagnosis: Elevated Blood Pressure without diagnosis of Hypertension (796.2), Acute sinusitis, unspecified (461.9) [facility] Office Visit On: 01-Apr-2006 10:13 Encounter Reason: Rash - The onset of the rash has been acute and has been occurring in a persistent pattern for 5 days. The course has been increasing. The rash is characterized as red and raised above the skin. The richard End: 01-Apr-2006 10:32 h was first seen on the neck (clavicle area ). It spread to the neck (started as slight to left side neck area and has spread around the neck/clavicle area ). There has been associated itching. Note for Rash: was on an atb amoxicillin about 2 weeks ago? reaction , no new scarf or necklace no new creams or soaps deterants, on tagament and benadrylEncounter Diagnosis: Rash (782.1) [facility] Office Visit On: 13-Mar-2006 10:20 Encounter Reason: Well Women Exam - The patient feels well with no complaints. Pap smear: date of last pap: (03-08). Contraceptive history: The patient is not using any method of contraception at this time. Patient does n End: 13-Mar-2006 10:48 ot exercise. The patient's libido is normal. The patient reports that she performs monthly self breast exam. Calcium intake includes 1200 mg with Vit D daily supplement. Note for Well Women Exam: menopausal, abalation 1999 Encounter Diagnosis: Well Female (V70.0) (Renamed from Well Female (V70.0) (I)) [facility] Historical Summary On: 27-Feb-2006 12:28 [facility] End: 27-Feb-2006 12:39 Office Visit On: 26-Feb-2006 9:48 Encounter Reason: Follow up for chronic medical issues - The patient feels well with no complaints ,has good energy level and is sleeping well. Patient has been compliant with instructions. Current medication use: no rosalind End: 26-Feb-2006 10:21 e effects ,compliant with dosing regimen and considered effective by patient. Patient sleeps 8 hours per night. Nutrition: balanced diet. The medical issues the patient is following up for include asthm a ,cardiac issues (MVP) and high cholesterol. blood pressure range : (120-130/70). Encounter Diagnosis: Asthma (493.11), Mitral Valve Prolapse (746.9), Hypercholesterolemia (272.0), Gerd (530.81), Allergic rhinitis (477.9), Well Female (V70.0) (Renamed from Well Female (V70.0) (I)) [facility] Historical Summary On: 11-Dec-2005 13:01 [facility] End: 11-Dec-2005 13:04 Payers MedicareAetna/mcare supplement Jam HUNTLEY; mane guarantor
--- OUTSIDE RECORDS SUMMARY | 2018-05-22 05:25 | XMS RPT_ITS | Continuity of Care Document ---
:1950 Author Organization [facility] Address [address] [place] [address] Phone Care Team Providers Name Role Phone Mónica Petty MD Unavailable Dr. Junior Boyle Unavailable Yasmin HORNER , Dr. Ishmael Mcarthur Unavailable FLOR Santana Unavailable Unavailable Unavailable Unavailable Problems Name Dates Details Abnormal EKG (R94.31, 794.31) Comments: conduction delay staying now ? rhythm [facility] cardio hard to tell with artifact. will [...] : 12-Jul-2016 Inactive Comments:12 samples given ERGOCALCIFEROL, 47108RFYA (Oral Capsule) 1 Capsule twice weekly for [...] for Tdap vaccination (Renamed from Need for xsgdiujgac-mgmyvse-yrijndbao (Tdap) vaccine, adult/adolescent) (Z23, V06.1) Status: Resolved [...] Visit Report Result: Comments: See Note; NOTES: [facility] [address] [place] [address] OFFICE VISIT Date of Service: 12/15/17 1053 MR#: [id number] Acct: [id number] Name: AZALIA HUNTLEY Rep #: [id number] : 1950 From: Angel Shin MD Age/Sex: [...] inv asion. Tumor is ER positive (95%) AL positive (40%) (and HER-2 not overexpressed. Patient [...] right breast grade 2, E R positive, AL positive, HER-2/skylar not overexpressed. Patient is status [...] Angel Shin MD> Date Angel Shin MD [facility] Signature: Date (if applicable) CC: 17-Nov-2017 Breast Limited Unilateral Result: Comments: See Note; NOTES: [facility] Imaging Services [address] [place] [address] Breast Limited Unilateral MR#: [id number] Acct: [id number] Name: PARUL HUNTLEY Rep # : [id number] : 1950 F 67 From: Justice Gerardo MD PCP: Mónica Petty MD Status: REG CLI Study: Breast Limited Unilateral Date of Exam: 11/17/17 Exam# [id number] Ordering Dr: Mónica Petty MD STUDY: ULTRASOUND [...] the facility within 30 days. Electronically Signed: Justice Gerardo MD at 8:37 EDT Tel [phone], Service support , Fax CC: Mónica Petty MD Bar Pointer: Signed 17-Nov-2017 DIAG MAMM W/CAD, UNILAT Result: Comments: See Note; NOTES: [facility] Imaging Services [address] [place] [address] DIAG MAMM W/CAD, UNILAT MR#: [id number] Acct: [id number] Name: PARUL HUNTLEY Rep #: [id number] : 1950 F 67 From: Justice Gerardo MD PCP: Mónica Petty MD Status: REG CLI Study: DIAG MAMM W/CAD, UNILAT Date of Exam: 11/17/17 Exam# [id number] Ordering Dr: Mónica Petty MD [facility] MOGRAPHY - UNILATERAL DIAGNOSTIC: LEFT BREAST REASON [...] Justice Gerardo MD at 14:13 EDT Tel [phone], Service support , CC: Mónica Petty MD Bar Pointer: Signed 06-Nov-[address] w/CCTA Result: Comments: See Note; NOTES: [facility] Imaging Services [address] [place] [address] w/CCTA MR#: [id number] Acct: [id number] Name: PARUL HUNTLEY Rep #: [id number] : 1950 F 67 From: Farhat Montalvo DO PCP: Mónica Petty MD Status: REG CLI Study: Limited Chest CT w/CCTA Date of Exam: 11/06/17 Exam# [id number] Ordering Dr: Mónica Petty MD STUDY: CAR [...] Individualized dose optimization techniques were used for [facility] s CT. COMPARISON: Chest, January 26, 2013. [...] Normal visualized upper abdomen. ORD ER #: [id number] CT/Limited Chest CT w/CCTA IMPRESSION: 1. Status post right mastectomy. 2. There is no intrathoracic abnormality. Electronically Signed: Farhat Montalvo DO at 18:54 EDT Tel [phone], Service support , CC: Mónica Petty MD Bar Pointer: Signed 11-Sep-2017 Oncology Visit Report Result: Comments: See Note; NOTES: [facility] [address] [place] [address] [place] [address] OFFICE VISIT Date of Service: 09/11/17 [facility] MR#: [id number] Acct: [id number] Name: AZALIA HUNTLEY Rep #: [id number] : 1950 From: Angel Shin MD Age/Sex: [...] lymphovascular invasion. Tumor is ER positive (95%) AL positive (40%) (and HER-2 not overexpresse d. [...] the right breast grade 2, ER positive, AL positive, HER-2/skylar not overexpressed. Patient is status [...] [facility] 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) Coding Level of Care Code Off vis,est,level 3 Diagnoses Essential hypertension I10 Hypertension type: essential hypertension Coding Level of Care Code Off vis,est,leve l 3 Diagnoses Essential hypertension I10 Hypertension type: essential hypertension 08/22/17 1055 <Electronically signed by Johann Drake MD> Date Johann Aquinoer Signature: Date (if applicable) CC: Mónica Petty MD 12-Jun-2017 Oncology Visit Report Result: Comments: See Note; NOTES: [facility] [address] [place] [address] OFFICE VISIT Date of Service: 06/12/17 1108 MR#: [id number] Acct: [id number] Name: AZALIA HUNTLEY Rep #: [id number] : 1950 From: Angel Shin MD Age/Sex: [...] invas ion. Tumor is ER positive (95%) AL positive (40%) (and HER-2 not overexpressed. Patient [...] the right breast grade 2, ER positive, AL positive, HER-2/skylar not overexpressed. Patient is status [...] Visit Report Result: Comments: See Note; NOTES: [facility] [address] [place] [address] OFFICE VISIT Date of Service: 04/04/17 MR#: [id number] Acct: [id number] Name: PARUL BERMEO Rep #: [id number] : 1950 Provider: Adilson Crawford MD Age/Sex: 66/F Location[place] [facility] Status: Signed Intake Intake Visit Reasons: 1 M FU Mastectomy Cardiology Tech Required: N o Is patient in pain?: [...] 02/10/17 [History Confirmed 04/04/17] Ubidecarenone/Vitamin E Mixed [Szp71-Ujc E 200 mg- 20 Unit Sfg] 1 [...] year to follow-up. Adilson Crawford MD Pager: [facility] [address], [address] [address] Office: Coding Level of Care Code Global Post Op Diagnoses Primary cancer of right f emale breast C50.911 04/04/17 1354 <Electronically signed by Adilson Crawford MD> Date Adilson Crawford MD Cosigner Signature: Date (if applicable) CC: Mónica Petty MD 18-Mar-2017 Dexa Bone Density Study (HP) Result: Comments: See Note; NOTES: [facility] Imaging Services [address] [place] [address] Dexa Bone Density Study (HP) MR#: [id number] Acct: [id number] Name: PARUL HUNTLEY p #: [id number] : 1950 F 66 From: Justice Gerardo MD PCP: Mónica Petty MD Status: REG CLI Study: Dexa Bone Density Study (HP) Date of Exam: 03/18/17 Exam# [id number] Ordering Dr: Skylar Shin MD STUDY: DUAL [...] Justice Gerardo MD at 15:58 EST Tel [phone], Service support , CC: Mónica Petty MD; Angel Shin MD Bar Pointer: Signed 17-Mar-2017 Plastic Surgery Visit Report Result: Comments: See Note; NOTES: [facility] [address] [place] [address] OFFICE VISIT Date of Service: 02/05/17 MR#: [id number] Acct: [id number] Name: PARUL HUNTLEY Rep #: [id number] : 1950 Provider: Tyler Amezcua MD Age/Sex: 66/F Location[place] [facility] Status: Signed Intake Vital Signs02/05/17 Height 5 ft 2 in 02/05/17 Weight: 14 5 lb 02/05/17 Body Mass Index (BMI) 26.5 02/05/17 Respiratory Rate 20 Intake Visit Reasons: evaluation breast reconstruction Cardiology Tech Required: No Is patient in pain?: No [...] 02/10/17 [History Confirmed 03/13/17] Ubidecarenone/Vitamin E Mixed [Mrj72-Xyz E 200 mg-20 Unit Sfg] 1 ea [...] receptors were positive. Progesterone receptors were positive. Crm9vgw was negative. She comes in today to [...] for breast cancer. Father: age 60 of [place], hx CAD Mother: age 70 of [place], hx CAD and diabetes SOCIAL HISTORY: Patient [...] main types of reconstruction are using an real estate asset manager and/or implant or using autogenous tissue such [...] Physical Exam Result: Comments: See Note; NOTES: [facility] Medical Records Department [address] [place] [address] History and Physical 03/13/17 1056 MR#: [id number] Acct: [id number] Name: Roe HUNTLEY Rep #: [id number] : 1950 66 From: Anegl Shin MD PCP: Mónica Petty MD Status: REG RCR Y Location: [facility] (1) Primary cancer of right female breast [...] lymphovascular invasion. Tumor is ER positive (95%) AL positive (40%) (and HER-2 not overexpressed. Patient made an uneventful recovery from her surgery. Oncotype DX testing showed her to be at low risk group with a score of 13. Her past medical history is notable for Parkinson's disease, hypertension and vitamin D deficiency state. No family history of breast cancer Power of Cordwood Cutter: Yes Living Will: Yes Health History: Cancer [...] drinking: Has the patient needed an eye speech correction consultant in the mornings: Comments: Date of last [...] the right breast grade 2, ER positive, AL positive, HER-2/skylar not overexpressed. Patient is status [...] indicated. Patient was seen was her and yjfnwzqr-tm-hgi. Impression and recommendation discussed. The rationale behind [...] Visit Report Result: Comments: See Note; NOTES: [facility] [address] [place] [address] OFFICE VISIT Date of Service: 03/04/17 MR#: [id number] Acct: [id number] Name: PARUL BERMEO Rep #: [id number] : 1950 Provider: Adilson Crawford MD Age/Sex: 66/F Location: [facility] Status: Signed Intake Intake Visit Reasons: 2 week f/u mastectomy Cardiology Tech Require d: No Is patient in pain?: [...] 02/10/17 [History Confirmed 03/04/17] Ubidecarenone/Vitamin E Mixed [Tii80-Uoj E 200 mg-20 Unit Sfg] 1 ea [...] this will dissipate Adilson Crawford MD Pager: [facility] [address], [address] [facility] [place] [address] Office: Medications New: 03/05/17 0903 <Electronically signed by Adilson Crawford MD> Date Adilson Crawford MD Cosigner Signature: Date (if applicable) CC: Mónica Petty MD; Angel Shin MD 13-Feb-2017 Discharge Summary Result: Comments: See Note; NOTES: [facility] Medical Records Department [address] [place] [address] Discharge Summary 02/13/17 08 MR#: [id number] Acct: [id number] Name: NEYMAR HUNTLEY Rep #: [id number] : 1950 66 From: dAilson Crawford MD PCP: Mónica Petty MD Status: REG [facility] Location: [place] [address] Discharge Date and Diagnosis - Problem List [...] Imaging Results: Clinical Impression(s) from Imaging Studies [place] Node 02/12/17 11:00 IMPRESSION: Injectio n of 1.1 mCi of technetium level sulfur colloid for sentinel node imaging. Electronically Signed: Justice Gerardo MD at 12:38 EST Tel [phone], Service support , Fax Operations: - - [...] patch TRANSDERM. DAILY 02/10/17 Ubidecarenone/Vitamin E Mixed [Gdu38-Kbl E 200 mg-20 Unit Sfg] 1 each [...] call today to make appt mon or [phone] Meaningful Use Info Meaningful Use Diagnoses (Choose all that apply): None applicable 02/13/17805 <Electronically signed by Adilson Crawford MD> Date Adilson Crawford MD Cosigner Signature (if applicable): Date CC: Adilson Crawford MD; Mónica Petty MD Signed 13-Feb-2017 Discharge Summary Result: Comments: See Note; NOTES: [facility] Medical Records Department [address] [place] [address] Discharge Summary 02/13/17 0753 MR#: [id number] Acct: [id number] Name: NEYMAR HUNTLEY Rep #: [id number] : 1950 66 From: Adilson Crawford MD PCP: Mónica Petty MD Status: REG [facility] Location: [place] [address] Discharge Date and Diagnosis - Problem List [...] patch TRANSDERM. DAILY 02/10/17 Ubidecarenone/Vitamin E Mixed [Lor89-Slu E 200 mg-20 Unit Sfg] 1 each [...] Discharge Instruction Result: Comments: See Note; NOTES: [facility] Medical Records Department [address] [place] [address] Instructions for Home/Discharge Instructions 02/13/17 0756 MR#: [id number] Acct: [id number] Name: PARUL HUNTLEY Rep #: [id number] : 1950 66 From: Adilson Crawford MD PCP: Mónica Petty MD Status: REG [facility] Discharge Diet: No Restrictions Discharge Activity: May [...] Suction Additional Dressing/Incision Instruct ions:: Remove ana laura wrap to shower then rewrap Allergies/Adverse Reactions: [...] TRANSDERM. LAUREANO LY 02/10/17 Ubidecarenone/Vitamin E Mixed [Suq78-Plq E 200 mg-20 Unit Sfg] 1 each [...] call today to make appt mon or [phone] 02/13/17 4308 <Electronically signed by Adilson Crawford MD> Date _ Adilson Crawford MD CC: Mónica Petty MD 12-Feb-2017 Operative Report Result: Comments: See Note; NOTES: [facility] Medical Records Department [address] [place] [address] Operative Report 02/12/17 1709 MR#: [id number] Acct: [id number] Name: SCOTT HUNTLEY Rep #: [id number] : 1950 66 From: Adilson Crawford MD PCP: Mónica Petty MD Status: REG [facility] Location: [place] [address] Problem List (1) Breast cancer, right Status: [...] hemostat was used to bring a 15 Japanese round drain into the inferior flap. The [...] VTE Mechan Device Proph ylaxis: SCD's 02/12/17 8123 <Electronically signed by Adilson Crawford MD> Date Adilson Crawford MD CC: Adilson Crawford MD; Mónica Petty MD Signed 12-Feb-2017 Lymph Node Injection Only Result: Comments: See Note; NOTES: [facility] Imaging Services [address] [place] [address] Lymph Node Injection Only MR#: [id number] Acct: [id number] Name: PARUL HUNTLEY Rep # : [id number] : 1950 F 66 From: Justice Gerardo MD PCP: Mónica Petty MD Status: [facility] Study: Lymph Node Injection Only Date of Exam: 02/12/17 Exam# [id number] Ordering Dr: Patti Crawford MD PROCEDURE: NUCLEAR MEDICINE Injection [place] Node - RIGHT breast(s). REASON FOR EXAM: Female, 66 years old. Right breast cancer. TECHNIQUE: [place] node localization using radionuclide metho ds of [...] Justice Gerardo MD at 12:38 EST Tel [phone], Service support , Fax CC: Adilson Crawford MD; Mónica Petty MD Bar Pointer: Signed 03-Feb-2017 PET/CT Tumor Base -Thigh Init Result: Comments: See Note; NOTES: [facility] Imaging Services [address] [place] [address] PET/CT Tumor Base -Thigh Init MR#: [id number] Acct: [id number] Name: PARUL HUNTLEY ep #: [id number] : 1950 F 66 From: Richard Pino DO PCP: Mónica Petty MD Status: REG CLI Study: PET/CT Tumor Base -Thigh Init Date of Exam: 02/03/17 Exam# [id number] Ordering Dr: Chris Crawford MD EXAMINATION: FDG [...] manifest in the right breast presumably is telephone sales representative of the site of the patient?s [...] CC: Adilson Crawford MD; Mónica Petty MD Bar Pointer: Signed 13-Jan-2017 Breast w/o and/or W Cont Bilat Result: Comments: See Note; NOTES: [facility] Imaging Services [address] [place] [address] Breast w/o and/or W Cont Bilat MR#: [id number] Acct: [id number] Name: PARUL HUNTLEY Rep #: [id number] : 1950 F 66 From: Joanne Hagen MD PCP: Mónica Petty MD Status: REG CLI Study: Breast w/o and/or W Cont Bilat Date of Exam: 01/13/17 Exam# [id number] Ordering Dr: Chris Crawford MD STUDY: BILATERAL [...] CC: Adilson Crawford MD; Mónica Petty MD Bar Pointer: Signed 26-Dec-2016 Breast Limited Unilateral Result: Comments: See Note; NOTES: [facility] Imaging Services [address] [place] [address] Breast Limited Unilateral MR#: [id number] Acct: [id number] Name: PARUL HUNTLEY Rep # : [id number] : 1950 F 66 From: Justice Gerardo MD PCP: Mónica Petty MD Status: REG CLI Study: Breast Limited Unilateral Date of Exam: 12/26/16 Exam# [id number] Ordering Dr: Mónica Petty MD STUDY: ULTRASOUND [...] a suspicious lesion. A biopsy is recommended. US/[place] st Limited Unilateral IMPRESSION: 9 mm x [...] Justice Gerardo MD at 15:02 EDT Tel [phone], Service support , CC: Mónica Petty MD Bar Pointer: Signed 26-Dec-2016 SCREENING MAMM (CAD), BILAT Result: Comments: See Note; NOTES: [facility] Imaging Services [address] [place] [address] SCREENING MAMM (CAD), BILAT MR#: [id number] Acct: [id number] Name: PARUL HUNTLEY Rep #: [id number] : 1950 F 66 From: Justice Gerardo MD PCP: Mónica Petty MD Status: REG CLI Study: SCREENING MAMM (CAD), BILAT Date of Exam: 12/26/16 Exam# [id number] Ordering Dr: Mónica Petty MD MAMMOGRAPHY - [...] delay biopsy of a clinically suspicious abnormality. [id number] Electronically Signed: Justice suggs MD at 11:31 EDT Tel [phone], Service support , CC: Mónica Petty MD Bar Pointer: Signed 20-Dec-2015 Bilat Scrn Digital AND CAD Result: Comments: See Note; NOTES: [facility] Imaging Services [address] [place] [address] Verdana 4d Bilat Scrn Digital AND CAD MR#: [id number] Acct: [id number] Name: SCOTT HUNTLEY Rep #: [id number] : 1950 F 65 From: Justice Gerardo MD PCP: Mónica Petty MD Status: REG CLI Study: Bilat Scrn Digital AND CAD Date of Exam: 12/20/15 Exam# [id number] Ordering Dr: Mónica Corral MD MAMMOGRAPHY - [...] delay biopsy of a clinically suspicious abnormality. [id number] Electronically Signed: Justice Gerardo MD at 14:08 EDT Tel [phone], Service support [phone], CC: Mónica Petty MD Bar Pointer: Signed 13-Dec-2014 Bilat Scrn Digital AND CAD Result: Comments: See Note; NOTES: [facility] Imaging Services [address] [place] [address] Breast Imaging Report MR#: [id number] Acct: [id number] Name: PARUL HUNTLEY Rep #: [id number] : 1950 F 64 From: Justice Gerardo MD PCP: Mónica Petty MD Status: REG CLI Study: Bilat Scrn Digital AND CAD Date of Exam: 12/13/14 Exam# [id number] Ordering Dr: Mónica Grant MD MAMMOGRAPHY - [...] Justice Gerardo MD at 8:13 EDT Tel [phone], Service support [phone], CC: Mónica Petty MD Bar Pointer: Signed 26-Apr-2014 Knee 4 or More Views Result: Comments: See Note; NOTES: [facility] Imaging Services [address] [place] [address] Radiology Report MR#: [id number] Acct: [id number] Name: PARUL HUNTLEY Rep #: [id number] : 1950 F 63 From: Justice Gerardo MD PCP: Mónica Petty MD Status: REG CLI Study: Knee 4 or More Views Date of Exam: 04/26/14 Exam# [id number] Ordering Dr: Mónica Petty MD S TUDY: [...] Gerardo MD 2 at 15:36 EST Tel [phone], Service support [phone], CC: Mónica Petty MD Bar Pointer: Signed 17-May-2013 Cristi Pham Digital & CAD Result: Comments: See Note; NOTES: [facility] Imaging Services [address] [place] [address] Breast Imaging Report MR#: [id number] Acct: [id number] Name: PARUL HUNTLEY Rep #: [id number] : 1950 F 62 From: Justice Gerardo MD PCP: Mónica Petty MD Status: REG CLI Exam# [id number] Ordering Dr: Mónica Petty MD MAMMOGRAPHY - [...] M.D. at 11:03 EDT , Service support [phone], CC: Mónica Petty MD Bar Pointer: Signed Family History Unknown Family Member Name Dates Details 8 siblings: Sjorgens, DM in 2 sisters, RA, younger sister had [place] and DM Comments: [place] at 63yo. hyperthyriodism Status: Active Father Comments: at 67 from [place], not involved with him not know history, acoholism Status: Active maternal cousin neck cancer 17 yo Status: Active maternal uncle Parkinsons Status: Active Mother Comments: at 67 from [place], DM in 50's obesity. some high cholesterol. 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 left [place] at 18 yo to live with sister [...] kg/m2 Body Surface Area Calculated 1.66 m2 25-Knz-962920:21 Temperature 98.2 f Comments: Method: Temporal Pulse [...] Height 0 in Head Circumference 0.00 cm 19-Grp-111648:20 Temperature 97.6 f Comments: Method: Oral Pulse [...] 0.00 cm Results Date Description Value Details 27-Moh-45905:48 Pap IG, rfx HPV Comments: Source.............Cervix;EndocervixNo. of containers..01 ThinPrep VialPATIENT NOT FASTINGPERFORMED BY: [facility] [id number] Information: [id number] all pth Note: PAPSMR (Normal) Comments: The [...] present.Partially obscuring thick areas are present.Z12.Hetal Duarte, Side Seam Tender ([facility])Cassie Jian, Supervisory Side Seam Tender ([facility]) 65-Hpm-508160:58 C-REACT PROT HIGH SENS(hsCRP) Comments: PATIENT NOT FASTINGPERFORMED BY: [facility] [facility] [id number] ([id number]) C-Reactive Protein, Cardiac 11.71 mg/L (Abnormal) Range: 0.00-3.00 Comments: Relative Risk for Future Cardiovascular Event Low <1.00 Average 1.00 - 3.00 High >3.00 02-Ofm-332076:12 Microscopic Examination Comments: PATIENT NOT FASTINGPERFORMED BY: [facility] [facility] [id number] Bacteria Moderate (Abnormal) Mucus Threads Present (Normal) Crystal Type Amorphous Sediment (Normal) Crystals Present (Abnormal) Epithelial Cells (non renal) 0-10 {/hpf} (Normal) Range: 0 - 10 RBC 3-10 {/hpf} (Abnormal) Range: 0 - 2 WBC >30 {/hpf} (Abnormal) Range: 0 - 5 74-Uyu-142696:46 URINE BOOGIE CULTURE-IDENTIFICATN Comments: PATIENT NOT FASTINGPERFORMED BY: [facility] [facility] [id number] Information: SRC:MICHELLE ([id number]) Antimicrobial MIHEAD (Normal) Comments: S = Susceptible; [...] and Proteusmirabilis. Urine Final report Culture,Comprehensive (Abnormal) 14-Xlf-917920:27 CBC W/Diff, Automated Comments: Reason for Laboratory Test .[facility] [address] [place], [place], [address] Absolute Lymph 1.08 {X10_3/ul} (Normal) Range: 0.83-4.51 [...] 4.2-5.4 WBC 5.0 K/mm3 (Normal) Range: 4.4-11.0 12-Uxf-554695:27 Comprehensive Metabolic Profil Comments: Reason for Laboratory Test .[facility] [address] [place], [place], [address] GAP 6 (Normal) Range: 5-15 CO2 29.0 [...] Comments: Please note revised GLUCOSE reference range ufalmrigd32/02/2018. 34-Qkj-202389:55 CBC W/Diff, Automated Comments: Reason for Laboratory Test .[facility] [address] [place], [place], [address] Absolute Lymph 1.26 {X10_3/ul} (Normal) Range: 0.83-4.51 [...] 4.2-5.4 WBC 4.6 K/mm3 (Normal) Range: 4.4-11.0 51-Vwf-368754:55 Comprehensive Metabolic Profil Comments: Reason for Laboratory Test .[facility] [address] [facility] [place], [address] GAP 6 (Normal) Range: 5-15 CO2 28.0 mmol/L (Normal) Range: 21.0-32.0 CL 107 mmol/L (Normal) Range: 98-107 K 4.1 mmol/L (Normal) Range: 3.5-5.1 NA 141 mmol/L (Normal) Range: 136-145 T BILI 0.40 mg/dL (Normal) Range: 0.20-1.00 ALT 21 U/L (Normal) Range: 13-56 Comments: Please note revised ALT reference range zxpvncymv00/28/2018. ALK P 76 U/L (Normal) Range: 45-117 [...] Comments: Please note revised GLUCOSE reference range rwgozfvld54/02/2018. 57-Miw-691739:55 Vitamin D,25 Hydroxy Comments: Reason for Laboratory Test .[facility] [address] [facility]. [place], [place], [address] Vitamin D 25-OH 33.6 ng/mL (Normal) Range: 29.95-100.01 Comments: Vitamin D 25(OH) Status Range Deficiency <20 ng/mL (50nmol/L) Insuffciency 20 - 30 ng/mL (50 - 75 nmol/L) Sufficiency 30 - 100 ng/mL (75 - 250 nmol/L) Toxicity >100 ng/mL (>250 nmol/L) 35-Zeo-875293:14 CBC W/Diff, Automated Comments: Reason for Laboratory Test [facility] [address] [facility] [place], [address] Absolute Lymph 1.49 {X10_3/ul} (Normal) [...] 4.2-5.4 WBC 6.0 K/mm3 (Normal) Range: 4.4-11.0 77-Aln-347106:14 Comprehensive Metabolic Profil Comments: Reason for Laboratory Test [facility] [facility] Ohfqkbyxos9640 [facility] [place], [place], [id number] GAP 7 (Normal) Range: 5-15 CO2 28.0 [...] 7-18 GLU 96 mg/dL (Normal) Range: 70-110 59-Hqd-25133:34 Basic Metabolic Profile (BMP) Comments: [facility] [address] [place], [address] GAP 8 (Normal) Range: 5-15 CO2 25.0 [...] A.D.A. criteria. :34 CBC W/Diff, Automated Comments: [facility] [address] [place], [place], [id number] Absolute Lymph 0.74 {X10_3/ul} (Abnormal) Range: 0.83-4.51 [...] Range: 4.4-11.0 :20 Partial Thromboplast Time Comments: [facility] [address] [place], [place], [address] PTT 27.7 s (Normal) Range: 24.1-36.2 01-Lwg-317639:20 Prothrombin Time w/INR Comments: [facility] [address] [place], [id number] INR 1.0 (Normal) PROTIME 12.5 s (Normal) Range: 11.7-14.9 19-Ghy-310464:57 CBC-Complete Blood Cnt No Diff Comments: [facility] [address] [place], [id number] MPV 10.2 fL (Normal) Range: 6.2-12.0 PLT [...] 4.2-5.4 WBC 4.5 K/mm3 (Normal) Range: 4.4-11.0 27-Kvq-787064:57 Liver Profile Comments: [facility] [address] [place], [address] D BILI 0.15 mg/dL Range: 0.00-0.30 (Normal) [...] BIOPSY (CHOOSE SITE) See Note (Normal) Comments: [facility] [address] [place], [address] 710:35 Comments: Patient: PARUL HUNTLEY : 1950 (66/F) Acct Num: [id number] Phys: Adilson Crawford MD Unit Num: [id number] Loc: LABSPEC Specimen: [id number] Received: 01/16/17943 Spec Type: BREAST BX TISSUES TISSUES: COMMENT Immunohistochemistry ([id number]) supports the above diagnosis. ER/AL/Sde5djg studies are being performed on sections of tumor and the r esults from this study will be reported separately ([id number]). GROSS DESCRIPTION Received in fixative is one container labeled with the patient's name and designated right breast tissue. The s pecimen consists of multiple elongated fragments of cabrera-yellow fibroadipose tissue that in aggregate measure 2 x 0.3 x 0.1 cm. The entire specimen is submitted in one cassette. / SJ:abena 01/16/17 TC:0 CPT: 67424 HEADER OPERATION: Right breast mammotome biopsy PRE-OP [...] on file> IMMUNOHISTOCHEMISTRY See Note (Normal) Comments: [facility] [address] [place], [address] 70:00 Comments: Patient: PARUL HUNTLEY : 1950 (66/F) Acct Num: [id number] Phys: Adilson Crawford MD Unit Num: [id number] Loc: LABSPEC Specimen: [id number] Received: 01/17/17 1256 Spec Type: IMMUNO TISSUES TISSUES: SPECIMEN INFORMATION: Tissue Source: Right breast tissue Clinical Info: Abnormal breast MRI Specimen Number: [id number] CPT code: 62712, 883 41 x4, 15833 x3 METHODOLOGY: Deparaffinized sections of prefer/formalin- fixed tissue or PAP/DQ stained slides are incubated with monoclonal/polyclonal antibodies/oligonucleotide probes. Localizati on is made via biotin free immunoperoxidase method. Appropriate controls are performed and reacted as expected. Results on target cell population are indicated in the following table: RESULTS: A NTIBODY / CLONE RESULT E-Cad (ECH-6) negative CK8 (06omqeB25) positive CK5-6 (D5 AND 1684) negative Ki-67 (30-9) positive , low P53 (DO-7) negative MORPHOMETRIC ANALYSIS ER (clone 6F11) >95%, strong AL (clone 16/1E2) 40% , weak to moderate [...] fo r all equivocal cases. Positivity/negativity for ER/AL is reported if > or < 1% of the tumor cells are immuno- reactive, respectively. The ASCO/CAP criteria is used for scoring. Reference: Journal of Clinical Oncology, 2013; 31:4386-5754 AND 2009; 16:5662-4711. Duration of fixation: 33 Hrs; Sample Adequate: Yes. These assays have not been validated on decalcified tissues. Results should b einterpreted with caution given the likelihood of false negativity on decalcifiedspecimens. These tests were developed and their performance characteristics determined by [facility] L aboratory. They may not have been cleared or approved by the U.S. Food and Drug Administration. The FDA has determined that such clearance or approval is not necessary. INTERPRETATION: Right jennifer ast, mammotome biopsy: Invasive lobular carcinoma, nuclear grade 2. Positive for estrogen receptors (favorable prognostic indicator). Positive for progesterone receptors (favorable prognos tic indicator). Negative for overexpression of YKW9fin. SJ:abena 01/17/17 PHYSICIAN AND INSTITUTION [facility] [address] [place], [place] [address] Signed __ Dario Almazanin 01/17/17 <signature on file> 89-Qtk-07910:30 CREATININE FINGERSTICK Comments: [facility] LaboratoryPoint of Emzo[address] [place] [address] EGFR WB > 60.0000 mL/min (Normal) CREATININE WB 0.7 mg/dL (Normal) Range: 0.55-1.02 60-Dcd-641227:12 MICROALBUMIN: CREATININE RATIO Comments: PATIENT NOT FASTINGPERFORMED BY: [employer] enGreet [facility] [id number] (68139) AND (88250) Alb/Creat Ratio 41.6 {mg/g_creat} (Abnormal) Range: 0.0-30.0 Albumin, Urine 26.1 ug/mL (Normal) Creatinine, Urine 62.7 mg/dL (Normal) 18-Hzz-440607:12 URINALYSIS (30611) Comments: PATIENT NOT FASTINGPERFORMED BY: [employer] [facility] [id number]; patient was treated with Cipro Microscopic Examination See below: (Normal) Comments: Microscopic was indicated and was performed. Nitrite, Urine Positive (Abnormal) Urobilinogen,Semi-Qn 1.0 mg/dL (Normal) Range: 0.2-1.0 Bilirubin Negative (Normal) Occult Blood Trace (Abnormal) Ketones Negative (Normal) Glucose Negative (Normal) Protein Negative (Normal) WBC Esterase 3+ (Abnormal) Appearance Clear (Normal) Urine-Color Yellow (Normal) pH 6.5 (Normal) Range: 5.0-7.5 Specific Hadley 1.011 (Normal) Range: 1.005-1.030 85-Xsn-480043:12 Metabolic Panel, Comprehensive Comments: PATIENT NOT FASTINGPERFORMED BY: [employer] Tlrrjs0423 [facility] [id number] (51795) ALT (SGPT) 16 [iU]/L (Normal) Range: 0-32 [...] 8-27 Glucose 94 mg/dL (Normal) Range: 65-99 19-Vpl-429283:12 CBC WITH MANUAL DIFF Comments: PATIENT NOT FASTINGPERFORMED BY: LabCoWeisman Children's Rehabilitation HospitalDqsslt3859 [facility] [id number] Information: NURSE DRAW (53863) Immature Grans (Abs) 0.0 {x10E3/uL} (Normal) Range: [...] 3.77-5.28 WBC 7.3 {x10E3/uL} (Normal) Range: 3.4-10.8 8-Fsn-517155:00 Pathology Report Comments: PERFORMED BY: CYT [facility] [place] Cyto Tdznw22124 [facility] [id number] BY: [facility] Dermatopathology Mhiitrf093 [address] [id number] Information: [id number] See MATER Comments: Material submitted: .RIGHT BOTTOM [...] DESIGNATEDBIOPSY FOOT IS A 0.6 CM PU [facility] BIOPSY OF CORNIFIED SKIN HAVING ADERMIS OF 0.4 CM. ECCENTRICALLY LOCATED ON THE SKIN SURFACE IS A0.4 CM IN DIAMETER FIRM YELLOW SLIGHTLY RAISED AREA. THE DERMISIS MARKED WITH RED INK AND THE SPECIME N IS BISECTED AND SUBMITTEDIN TOTO IN ONE BLOCK.LIT/VINPathologist provided ICD-10:B07.9CPT .555444 3 COLON See Note Comments: [facility] [address]mbm[address] [facility] [place], [address] 1 BIOPS (Normal) Comments: Patient: PARUL HUNTLEY : 1950 (66/F) Acct Num: [id number] Phys: Junior Boyle Unit Num: [id number] Loc: LABSPEC Specimen: [id number] Received: 10/31/161606 Spec Ty - Y pe: [...] one cassette. / Ramonita 11/01/16 TC:1 CPT: 19683 HEADER u SE OPERATION: Colonoscopy with biopsies PRE-OP DIAGNOSIS: Screening TISSUE SUBMITTED: Right colon polyp biopsies - rule out adenoma MICROSCOPIC DESCRIPTION Slides are reviewed. MICROSCOPIC g SITE) DIAGNOSIS Right colon polyp, biopsy: Fragments of hyperplastic polyp. Ramonita 11/05/16 Signed Dario Bill 11/05/16 <signature on file> - 2 0 1 7 1 1 : 0 7 79-Fcd-003591:08 CBC with auto diff (01673) Comments: PATIENT NOT FASTINGPERFORMED BY: [employer] Iravyb2453 [employer] [facility] HospitalRetailMeNot[facility] [id number] Immature Grans (Abs) 0.0 {x10E3/uL} (Normal) Range: [...] 3.77-5.28 WBC 5.6 {x10E3/uL} (Normal) Range: 3.4-10.8 79-Xro-819139:08 METABOLIC PANEL, COMPREHENSIVE Comments: PATIENT NOT FASTINGPERFORMED BY: [employer] [place] [id number] (22698) ALT (SGPT) 13 [iU]/L (Normal) Range: 0-32 [...] Glucose, Serum 93 mg/dL (Normal) Range: 65-99 56-Uzw-890521:08 CALCIFIDIOL (85760) VIT D 25 Comments: PATIENT NOT FASTINGPERFORMED BY: [facility] Wvbvxa3984 [facility] [id number] Vitamin D, 25-Hydroxy 54.0 ng/mL (Normal) Range: 30.0-100.0 Comments: Vitamin D deficiency has been defined by the [place] of[place]icine and an Endocrine Society practice guideline as alevel of serum 25-OH vitamin D less than 20 ng/mL (1,2).The Endocrine Society went on to further define vitamin Dinsufficiency as a level between 21 and 29 ng/mL (2).1. IOM ([place] of Medicine). 2010. Dietary reference intakes for calcium and D. [place]: The National Academies Press.2. Angelo MF, Chin HANSEN, Katy HERRERA, et al. Evaluation, treatment, and prevention of vitamin D deficiency: an Endocrine Society clinical practice guideline. JCEM. 2010; 96(7):1911-30. :45 Anti-TPO Antibody (63857) Comments: PATIENT NOT FASTINGPERFORMED BY: Chef Ghuiew2961 [address] RoadDublin [place] [id number] Thyroid Peroxidase (TPO) Ab <6 {IU/mL} (Normal) Range: 0-34 :45 T3, FREE (TRIDOTHYRONINE) (75012) Comments: PATIENT NOT FASTINGPERFORMED BY: [employer] LabPraxis Engineering Technologiesrp Ooebfi9814 [address]Dublin [place] [id number] Triiodothyronine,Free,Serum 2.7 pg/mL (Normal) Range: 2.0-4.4 :45 T4, FREE (THYROXINE) (19270) Comments: PATIENT NOT FASTINGPERFORMED BY: [employer] [facility] Xavjtr6494 [address] RoadDublin [place] [id number] T4,Free(Direct) 1.22 ng/dL (Normal) Range: 0.82-1.77 :45 TSH (THYROID STIMULATING Comments: PATIENT NOT FASTINGPERFORMED BY: CB [facility] Nbhqxw3761 [address] RoadDublin [place] [id number]; fu 12-19 HORMONE) (69548) TSH 2.340 {uIU/mL} (Normal) Range: 0.450-4.500 :13 CALCIFIDIOL (24242) VIT D 25 Comments: PATIENT WAS FASTINGPERFORMED BY: [employer] [facility] Ahjpky2343 [address] RoadDublin [place] [id number] Vitamin D, 25-Hydroxy 43.6 ng/mL (Normal) Range: 30.0-100.0 Comments: Vitamin D deficiency has been defined by the [place] of[place]icine and an Endocrine Society practice guideline as alevel of serum 25-OH vitamin D less than 20 ng/mL (1,2).The Endocrine Society went on to further define vitamin Dinsufficiency as a level between 21 and 29 ng/mL (2).1. IOM ([place] of Medicine). 2010. Dietary reference intakes for calcium and D. [place]: The National Academies Press.2. Angelo MF, Chin HANSEN, Katy HERRERA, et al. Evaluation, treatment, and prevention of vitamin D deficiency: an Endocrine Society clinical practice guideline. JCEM. 2010; 96(7):1911-30. :13 URINALYSIS (29421) Comments: PATIENT WAS FASTINGPERFORMED BY: [employer] [place] [id number] Microscopic Examination MICNIP (Normal) Comments: Microscopic not indicated and not performed. Nitrite, Urine Negative (Normal) Urobilinogen,Semi-Qn 0.2 mg/dL (Normal) Range: 0.2-1.0 Bilirubin Negative (Normal) Occult Blood Negative (Normal) Ketones Negative (Normal) Glucose Negative (Normal) Protein Negative (Normal) WBC Esterase Negative (Normal) Appearance Clear (Normal) Urine-Color Yellow (Normal) pH 7.0 (Normal) Range: 5.0-7.5 Specific Hadley 1.021 (Normal) Range: 1.005-1.030 :13 Metabolic Panel, Comprehensive Comments: PATIENT WAS FASTINGPERFORMED BY: [employer]6370 [facility] [id number] (49523) ALT (SGPT) 23 [iU]/L (Normal) Range: 0-32 [...] mg/dL (Normal) Range: 65-99 :13 Lipid Panel (87368) Comments: PATIENT WAS FASTINGPERFORMED BY: [facility]Sc[facility] [id number] LDL/HDL Ratio 1.6 {ratio_units} (Normal) Range: 0.0-3.2 [...] MANUAL DIFF Comments: PATIENT WAS FASTINGPERFORMED BY: Nuvosun70 [facility] [id number] Information: [id number]; [address] ([address]) Immature Grans (Abs) 0.0 {x10E3/uL} (Normal) Range: [...] CULTURE-KATHRYN COL Comments: PATIENT NOT FASTINGPERFORMED BY: LabCoWeisman Children's Rehabilitation HospitalOvwbsg9476 [facility] [id number] Information: SRC:UR [id number] COUNT (95304) Result 1 NG36 (Normal) Comments: No growth in 36 - 48 hours. Urine Culture,Comprehensive Final report (Normal) 8-Cqu-856217:50 Urinalysis, Office (02946) UA - LEUKOCYTE ESTERASE Small (Normal) UA - NITRITE Negative (Normal) URINE UROBILINGN KATHRYN TIMED Normal mg/dL (Normal) UA - PROTEIN Negative mg/dL (Normal) UA - PH 6 (Abnormal) UA - BLOOD Hemolyzed Trace (Normal) UA - SPECIFIC GRAVITY 1.020 (Normal) UA - KETONES Negative mg/dL (Normal) UA - BILIRUBIN Negative (Normal) UA - GLUCOSE Negative (Normal) 63-Jty-817094:13 Miscellaneous Lab Procedure Comments: Results faxed on 11/22/14- 7623 by JODY .Comments: [id number] PAPTest(s) Ordered: [id number] PAPTest performed at:[facility] [address] [place], [place] [address] [facility] [place] LAB TEST (Normal) Comments: Scanned image report available in EMR 19-Kiz-688224:08 CBC With Differential/Platelet Comments: PATIENT WAS FASTINGPERFORMED BY: LabCoWeisman Children's Rehabilitation HospitalDrgvip1800 [facility] [id number]; [facility] fu - will review with [...] Panel (14) Comments: PATIENT WAS FASTINGPERFORMED BY: Nuvosun70 [facility] [id number] ALT (SGPT) 12 [iU]/L (Normal) Range: 0-32 [...] Glucose, Serum 84 mg/dL (Normal) Range: 65-99 03-Cvi-698003:08 Lipid Panel With LDL/HDL Comments: PATIENT WAS FASTINGPERFORMED BY: Nuvosun70 CamarilloCardioMEMSScionHealth [id number] Ratio LDL/HDL Ratio 1.3 {ratio_units} Range: 0.0-3.2 [...] ng/mL (Normal) Comments: PATIENT WAS FASTINGPERFORMED BY: Nuvosun70 [facility] [id number] 11:08 Range: 30.0-100.0 Comments: Vitamin D deficiency has been defined by the [place] of[place]icine and an Endocrine Society practice guideline as alevel of serum 25-OH vitamin D less than 20 ng/mL (1,2).The Endocrine Society went on to further define vitamin Dinsufficiency as a level between 21 and 29 ng/mL (2).1. IOM ([place] of Medicine). 2010. Dietary reference intakes for calcium and D. [place]: The National Academies Press.2. Angelo MF, Chin [place], Katy HERRERA, et al. Evaluation, treatment, and prevention of vitamin D deficiency: an Endocrine Society clinical practice guideline. JCEM. 2010; 96(7):1911-30. 64-Yme-22063:36 METABOLIC PANEL, COMPREHENSIVE Comments: PATIENT WAS FASTINGPERFORMED BY: [employer] LabCoGlori Energy70 [facility]Spot [facility] [id number] (51550) ALT (SGPT) 13 [iU]/L (Normal) Range: 0-32 [...] mg/dL (Normal) Range: 65-99 :36 LIPID PANEL (64994) Comments: PATIENT WAS FASTINGPERFORMED BY: [employer]6370 [place] [facility] [id number] LDL/HDL Ratio 1.2 {ratio_units} (Normal) Range: 0.0-3.2 [...] MANUAL DIFF Comments: PATIENT WAS FASTINGPERFORMED BY: [employer]6370 [place] [facility] [id number] Information: [id number] (06559) Immature Grans (Abs) 0.0 {x10E3/uL} (Normal) Range: [...] 3.77-5.28 WBC 4.8 {x10E3/uL} (Normal) Range: 3.4-10.8 27-Mpt-79952:36 CALCIFIDIOL (37067) VIT D 25 Comments: PATIENT WAS FASTINGPERFORMED BY: LabCoWeisman Children's Rehabilitation HospitalHuwuwz4142 [facility] [id number] Vitamin D, 25-Hydroxy 45.3 ng/mL (Normal) Range: 30.0-100.0 Comments: Vitamin D deficiency has been defined by the [place] of[place]icine and an Endocrine Society practice guideline as alevel of serum 25-OH vitamin D less than 20 ng/mL (1,2).The Endocrine Society went on to further define vitamin Dinsufficiency as a level between 21 and 29 ng/mL (2).1. IOM ([place] of Medicine). 2010. Dietary reference intakes for calcium and D. [place]: The National Academies Press.2. Angelo MF, Chin HANSEN, Katy HERRERA, et al. Evaluation, treatment, and prevention of vitamin D deficiency: an Endocrine Society clinical practice guideline. JCEM. 2010; 96(7):1911-30. 97-Flm-449177:06 URINE BOOGIE CULTURE-KATHRYN COL Comments: PATIENT NOT FASTINGPERFORMED BY: [employer] Tyypfr6253 [facility] [id number] Information: SRC:UR [id number] COUNT (94690) Result 1 NG36 (Normal) Comments: No growth in 36 - 48 hours. Urine Culture,Comprehensive Final report (Normal) 02-Vij-439748:05 Urinalysis, Office (25585) UA - BILIRUBIN Negative (Normal) UA - BLOOD Non Hemolyzed Trace (Normal) UA - GLUCOSE Negative (Normal) UA - KETONES Negative mg/dL (Normal) UA - LEUKOCYTE ESTERASE Negative (Normal) UA - NITRITE Negative (Normal) UA - PH 7.5 (Normal) UA - PROTEIN Trace mg/dL (Normal) UA - SPECIFIC GRAVITY 1.015 (Normal) URINE UROBILINGN KATHRYN TIMED 2 mg/dL (Normal) 94-Kco-26190:06 Metabolic Panel, Comments: PATIENT WAS FASTINGPERFORMED BY: [employer] Sjyrqt5698 [facility] [id number] Information: [id number] Comprehensive (15743) ALT (SGPT) 16 [iU]/L (Normal) Range: 0-32 [...] mg/dL (Normal) Range: 65-99 :06 Lipid Panel (76232) Comments: PATIENT WAS FASTINGPERFORMED BY: [facility] [id number] LDL/HDL Ratio 1.2 {ratio_units} (Normal) Range: 0.0-3.2 LDL Cholesterol Calc 131 mg/dL (Abnormal) Range: 0-99 VLDL Cholesterol Esau 11 mg/dL (Normal) Range: 5-40 HDL Cholesterol 107 mg/dL (Normal) Comments: According to ATP-III Guidelines, HDL-C >59 mg/dL is considered anegative risk factor for CHD. Cholesterol, Total 249 mg/dL (Abnormal) Range: 100-199 Triglycerides 57 mg/dL (Normal) Range: 0-149 :06 Homocysteine, Plasma (58018) Comments: PATIENT WAS FASTINGPERFORMED BY: [facility] [id number] Homocyst(e)ine, Plasma 7.4 umol/L (Normal) Range: 0.0-15.0 :06 CALCIFIDIOL (65163) VIT D 25 Comments: PATIENT WAS FASTINGPERFORMED BY: Rockstar SolosWeisman Children's Rehabilitation HospitalHrkocc8893 [facility] [id number] Vitamin D, 25-Hydroxy 24.9 ng/mL (Abnormal) Range: 30.0-100.0 Comments: Vitamin D deficiency has been defined by the [place] of[place]icine and an Endocrine Society practice guideline as alevel of serum 25-OH vitamin D less than 20 ng/mL (1,2).The Endocrine Society went on to further define vitamin Dinsufficiency as a level between 21 and 29 ng/mL (2).1. IOM ([place] of Medicine). 2010. Dietary reference intakes for calcium and D. [place]: The National AcademPositron Press.2. Angelo MF, Chin HANSEN, Katy HERRERA, et al. Evaluation, treatment, and prevention of vitamin D deficiency: an Endocrine Society clinical practice guideline. JCEM. 2010; 96(7):1911-30. 61-Elq-343491:00 Microscopic Examination Comments: PATIENT WAS FASTINGPERFORMED BY: [facility] Kamzgy3727 [facility] [id number] Bacteria Few (Normal) Mucus Threads Present (Normal) Epithelial Cells (non renal) >10 {/hpf} (Abnormal) Range: 0 - 10 RBC 0-3 {/hpf} (Normal) Range: 0 - 3 WBC 11-30 {/hpf} (Abnormal) Range: 0 - 5 49-Efs-54066:51 BILAT SCRN DIGITAL & CAD Radiology Report [...] Walton D.O.August 20, 2011 at 2:53:02 PM [phone] Signed BB/BB If you are the refe rring physician and would like to consult with theradiologist who provided this interpretation, please contact Ye Jarvis at . If this radiologist is unavailable, youwill be direc huong to another radiologist to assist. If you are a patient with a question regarding this report, pleasecontactyour referring physician directly. Professional Interpretation Provided By: [facility] , Dictated on 08/20/11 1024 by Rajat Walton DOTranscribed on 08/20/112053 by ITS IMPORTSign by Rajat Walton DO on 08/20/112054 Sign by: Rajat Walton DO 75-Ore-80630:51 DEXA BONE DENSITY STUDY (HP) Radiology Report [...] D.O.August 22, 2011 at 12:09: 10 PM [phone] Signed BB/BB If you are the referring physician and would like to consult with theradiologist who provided this interpretation, please contact Ye Jarvis a t . If this radiologist is unavailable, youwill be directed to another radiologist to assist. If you are a patient with a question regarding this report, pleasecontactyour referring physic shaun directly. Professional Interpretation Provided By: [employer], Phone , Dictated on 08/20/11 0957 by Rajat Walton DOTranscribed on 08/22/11 1501 by ITS IMPORTSign by Rajat Walton DO on 08/22/11 150 Sign by: Rajat Walton DO 88-Fhs-425986:19 Renal function Panel Comments: PATIENT NOT FASTINGPERFORMED BY: [facility]Former[facility]6370 [facility] [id number] Information: [id number] (57890) Albumin, Serum 4.4 g/dL (Normal) Range: 3.5-5.5 [...] Glucose, Serum 84 mg/dL (Normal) Range: 65-99 80-Qpf-306985:00 URINALYSIS, W/ MICRO (53355) Comments: PATIENT WAS FASTINGPERFORMED BY: LabCoWeisman Children's Rehabilitation HospitalHocpjj3483 [facility] [id number] Microscopic Examination See below: (Normal) Nitrite, Urine Negative (Normal) Urobilinogen,Semi-Qn 0.2 mg/dL (Normal) Range: 0.0-1.9 Bilirubin Negative (Normal) Occult Blood Negative (Normal) Ketones Negative (Normal) Glucose Negative (Normal) Protein Negative (Normal) WBC Esterase 2+ (Abnormal) Appearance Clear (Normal) Urine-Color Yellow (Normal) pH 7.0 (Normal) Range: 5.0-7.5 Specific Hadley 1.012 (Normal) Range: 1.005-1.030 21-Fob-614163:00 METABOLIC PANEL, COMPREHENSIVE Comments: PATIENT WAS FASTINGPERFORMED BY: Nuvosun70 [facility] [id number] (05388) ALT (SGPT) 17 [iU]/L (Normal) Range: 0-40 [...] Glucose, Serum 89 mg/dL (Normal) Range: 65-99 58-Hbs-271052:00 LIPID PANEL (89830) Comments: PATIENT WAS FASTINGPERFORMED BY: [employer]6370 [facility] [id number] LDL/HDL Ratio 1.3 {ratio_units} (Normal) Range: 0.0-3.2 LDL Cholesterol Calc 120 mg/dL (Abnormal) Range: 0-99 VLDL Cholesterol Esau 20 mg/dL (Normal) Range: 5-40 HDL Cholesterol 92 mg/dL (Normal) Comments: According to ATP-III Guidelines, HDL-C >59 mg/dL is considered anegative risk factor for CHD. Triglycerides 100 mg/dL (Normal) Range: 0-149 Cholesterol, Total 232 mg/dL (Abnormal) Range: 100-199 37-Rnk-799091:00 CBC WITH MANUAL DIFF Comments: PATIENT WAS FASTINGPERFORMED BY: LabCoWeisman Children's Rehabilitation HospitalMkxkrz2751 [facility] [id number] Information: [id number] (27383) Immature Grans (Abs) 0.0 {x10E3/uL} (Normal) Range: [...] Microscopic Examination Comments: PATIENT WAS FASTINGPERFORMED BY: [facility] [id number] Bacteria Few (Normal) Mucus Threads Present (Normal) Epithelial Cells (non renal) >10 {/hpf} (Abnormal) Range: 0 - 10 RBC 0-3 {/hpf} (Normal) Range: 0 - 3 WBC 0-5 {/hpf} (Normal) Range: 0 - 5 :35 URINALYSIS, W/ MICRO (42935) Comments: PATIENT WAS FASTINGPERFORMED BY: [facility] [id number] Microscopic Examination See below: (Normal) Microscopic Examination MICRON (Normal) Comments: Microscopic follows if indicated. Nitrite, Urine Negative (Normal) Urobilinogen,Semi-Qn 0.2 mg/dL (Normal) Range: 0.0-1.9 Bilirubin Negative (Normal) Occult Blood Negative (Normal) Ketones Negative (Normal) Glucose Negative (Normal) Protein Trace (Normal) WBC Esterase Negative (Normal) Appearance Clear (Normal) Urine-Color Yellow (Normal) pH 7.5 (Normal) Range: 5.0-7.5 Specific Hadley 1.021 (Normal) Range: 1.005-1.030 :35 METABOLIC PANEL, COMPREHENSIVE Comments: PATIENT WAS FASTINGPERFORMED BY: Nuvosun70 [facility] [id number] ([id number]) ALT (SGPT) 21 [iU]/L (Normal) Range: 0-40 [...] mg/dL (Normal) Range: 65-99 :35 LIPID PANEL (63626) Comments: PATIENT WAS FASTINGPERFORMED BY: Doll[facility] KillPsychiatric [id number] LDL/HDL Ratio 1.3 {ratio_units} (Normal) Range: 0.0-3.2 [...] MANUAL DIFF Comments: PATIENT WAS FASTINGPERFORMED BY: [employer] [place] [id number] Information: [id number] (74588) Immature Grans (Abs) 0.0 {x10E3/uL} (Normal) Range: [...] {x10E3/uL} (Normal) Range: 4.0-10.5 :42 Urinalysis, Office (73043) UA - BILIRUBIN Negative (Normal) UA - BLOOD Hemolyzed Trace (Normal) UA - GLUCOSE Negative (Normal) UA - KETONES Negative mg/dL (Normal) UA - LEUKOCYTE ESTERASE Negative (Normal) UA - NITRITE Negative (Normal) UA - PH 7.0 (Normal) UA - PROTEIN Negative mg/dL (Normal) UA - SPECIFIC GRAVITY 1.015 (Normal) URINE UROBILINGN KATHRYN TIMED 2 mg/dL (Normal) 94-Izm-998900:01 BILAT SCRN DIGITAL & CAD Radiology Report [...] 08/15/10 1103 Sign by: Justice Gerardo MD 5-Htx-350667:49 MYOCARD PERF STRESS/REST MULT Radiology Report See Note (Normal) Comments: EXERCISE MYOCARDIAL PERFUSION SCAN A 60-year-old lady with a history of atypical chest pain. XGJQNPGWG89.0 mCi of Sestamibi was injected at rest. [...] DEMPSEYgn by Johann Drake MD on 08/06/10 5952 Sign by: oJhann Drake MD :16 HEPATIC FUNCTION PANEL Comments: PATIENT WAS FASTINGPERFORMED BY: [employer]6370 [facility] [id number] Information: [id number] (88243) ALT (SGPT) 22 [iU]/L (Normal) Range: 0-40 AST (SGOT) 21 [iU]/L (Normal) Range: 0-40 Alkaline Phosphatase, S 75 [iU]/L (Normal) Range: 25-150 Bilirubin, Direct 0.13 mg/dL (Normal) Range: 0.00-0.40 Bilirubin, Total 0.4 mg/dL (Normal) Range: 0.0-1.2 Albumin, Serum 4.2 g/dL (Normal) Range: 3.5-5.5 Protein, Total, Serum 6.5 g/dL (Normal) Range: 6.0-8.5 :16 Lipid Panel (02277) Comments: PATIENT WAS FASTINGPERFORMED BY: [employer]uvosun70 [facility] [id number] LDL/HDL Ratio 1.4 {ratio_units} (Normal) Range: 0.0-3.2 [...] HIGH SENS(hsCRP) Comments: PATIENT WAS FASTINGPERFORMED BY: [employer]6370 [facility] [id number] ([id number]) C-Reactive Protein, Cardiac 12.60 mg/L (Abnormal) Range: 0.00-3.00 Comments: Relative Risk for Future Cardiovascular Event Low <1.00 Average 1.00 - 3.00 High >3.00 :16 Homocysteine, Plasma (11857) Comments: PATIENT WAS FASTINGPERFORMED BY: [employer] Cloud6370 [facility] [id number] Homocyst(e)ine, Plasma 7.8 umol/L (Normal) Range: 0.0-15.0 11-Dhu-859581:35 URINE BOOGIE CULTURE-KATHRYN COL Comments: PATIENT NOT FASTINGPERFORMED BY: Telcarelin6370 [facility] [id number] Information: SRC: [id number] COUNT (56959) Result 1 VIRIST (Normal) Comments: Viridans streptococcus group1,000 Colonies/mLSusceptibility not normally performed on this organism. Urine Final report (Normal) Culture,Comprehensive 87-Lhd-634947:30 ABDOMEN/PELVIS WITH CONTRAST Radiology Report See Note [...] on 03/15/10 1412 Sign by: Justice Gerardo 2-Qzw-079243:27 Thin prep Pap Comments: Source.............Cervical;EndocervicalNo. of containers..01 CYTYC Thin Prep VialPATIENT NOT FASTINGPERFORMED BY: Lab[address] [id number] Information: [id number] ([id number]) Note: PAPSMR (Normal) Comments: The Pap smear [...] present.V70.0 ; Routine general me dical examin [facility] Side Seam Tender (ASCP) 7-Dbl-855197:12 Urinalysis, Office (66751) UA - LEUKOCYTE ESTERASE Negative (Normal) UA - NITRITE Negative (Normal) URINE UROBILINGN KATHRYN TIMED Normal mg/dL (Normal) UA - PROTEIN Negative mg/dL (Normal) UA - PH 7.5 (Normal) UA - BLOOD Hemolyzed Trace (Normal) UA - SPECIFIC GRAVITY 1.015 (Normal) UA - KETONES Negative mg/dL (Normal) UA - BILIRUBIN Negative (Normal) UA - GLUCOSE Negative (Normal) 69-Zqk-447803:56 BILAT SCRN DIGITAL & CAD Radiology Report See Note (Normal) Comments: Exam Number: [id number] MAMMOGRAPHY - BILATERAL SCREENING INDICATION:Routine annual screening [...] of attaching a ResultCode to this exam.ADDENDUM: [id number] HPBI/MDS Reported By: JUSTICE GEARRDO 27-Jul-2009 C-Reactive Protein, 9.8 mg/L Comments: PATIENT WAS FASTINGPERFORMED BY: JAMIL VitaPortal Imziuz1935 [facility] [id number] 9:00 Quant (Abnormal) Range: 0.0-4.9 79-Zah-59293:00 CBC With Differential/Platelet Comments: PATIENT WAS FASTINGPERFORMED BY: [employer]6370 [facility] [id number] Baso (Absolute) 0.0 {x10E3/uL} (Normal) Range: 0.0-0.2 [...] 3.80-5.10 WBC 4.2 {x10E3/uL} (Normal) Range: 4.0-10.5 93-Lgd-88480:00 Comp. Metabolic Panel (14) Comments: PATIENT WAS FASTINGPERFORMED BY: LabCoWeisman Children's Rehabilitation HospitalYbovsv0883 [facility] [id number] A/G Ratio 1.9 (Normal) Range: 1.1-2.5 Alkaline [...] LDL/HDL Comments: PATIENT WAS FASTINGPERFORMED BY: LabCo Cijynb0357 [facility] [id number] Ratio HDL Cholesterol 112 mg/dL (Normal) Comments: [...] COMMNT (Normal) Comments: PATIENT WAS FASTINGPERFORMED BY: [facility]6370 [facility] [id number] :00 Comments: Test not indicated.IF TESTING IS REQUESTED ON URINE CULTURE TUBE PLEASE CONTACTLAB WITHIN 3 DAYS.A urine culture transport was received with no test indicated. Iftesting is required on this specimen, pl ease contact the [facility] Inquiry/Technical Services Department to obtain a Request forWritten Authorization Form. :00 Urinalysis, Routine Comments: PATIENT WAS FASTINGPERFORMED BY: [facility]6370 [facility] [id number] Microscopic Examination MICRON (Normal) Comments: Microscopic follows if indicated. Bilirubin Negative (Normal) Nitrite, Urine Negative (Normal) Occult Blood Negative (Normal) Urobilinogen,Semi-Qn 0.2 mg/dL (Normal) Range: 0.0-1.9 Glucose Negative (Normal) Ketones Negative (Normal) Protein Negative (Normal) Appearance Clear (Normal) pH 7.5 (Normal) Range: 5.0-7.5 Urine-Color Yellow (Normal) WBC Esterase Negative (Normal) Specific Hadley 1.011 (Normal) Range: 1.005-1.030 Vitamin D, 25-Hydroxy 39.3 ng/mL (Normal) Comments: PATIENT WAS FASTINGPERFORMED BY: [facility]6370 [facility] [id number] :00 Range: 32.0-100.0 Comments: Recent studies consider the lower limit of 32.0 ng/mL to be athreshold for optimal health.Mike ESCOBAR. J Nutr. 2004;135(2):317-22. 76-Lnp-480107:47 Urinalysis, Office (90352) UA - LEUKOCYTE ESTERASE Negative (Normal) UA - NITRITE Positive (Normal) URINE UROBILINGN KATHRYN TIMED 2 mg/dL (Normal) UA - PROTEIN Negative mg/dL (Normal) UA - PH 6.5 (Normal) UA - BLOOD Hemolyzed Trace (Normal) UA - SPECIFIC GRAVITY 1.015 (Normal) UA - KETONES Negative mg/dL (Normal) UA - BILIRUBIN Negative (Normal) UA - GLUCOSE Negative (Normal) 9-Gzq-691919:51 URINE BOOGIE CULTURE-KATHRYN COL Comments: PATIENT NOT FASTINGPERFORMED BY: AlereonFormerly [facility]6370 [facility] [id number] Information: SRC:UR [id number] COUNT (64033) Antimicrobial MIHEAD (Normal) Comments: S = Susceptible; [...] mL (Normal) Urine Final report (Normal) Culture,Comprehensive 6-Wqe-043989:36 Urinalysis, Office (90844) UA - LEUKOCYTE ESTERASE Moderate (Normal) UA - NITRITE Negative (Normal) URINE UROBILINGN KATHRYN TIMED Normal mg/dL (Normal) UA - PROTEIN Negative mg/dL (Normal) UA - PH 6.0 (Normal) UA - BLOOD Hemolyzed Moderate (Normal) UA - SPECIFIC GRAVITY 1.010 (Normal) UA - KETONES Negative mg/dL (Normal) UA - BILIRUBIN Negative (Normal) UA - GLUCOSE Negative (Normal) 27-Yzw-85750:19 URINE BOOGIE CULTURE-KATHRYN COL Comments: PATIENT NOT FASTINGClinical Information: SRC:UR [id number] PERFORMED BY: [facility]6370 [facility] [id number] COUNT (61289) Result 1 Lactobacillus species Comments: 50,000-100,000 colony forming units per mL (Normal) Urine Final report (Normal) Culture,Comprehensive 71-Sgw-565326:56 Urinalysis, Office (41938) UA - BILIRUBIN Small (Normal) UA - [...] Report See Note (Normal) Comments: Exam Number: [id number] CLINICAL:Shortness of breath and back pain. CTA [...] 25-Hydroxy 49.7 ng/mL (Normal) Comments: PERFORMED BY: [facility]6370 [facility] [id number] :01 Range: 32.0-100.0 Comments: Recent studies consider the lower limit of 32.0 ng/mL to be athreshold for optimal health.[facility]. J Nutr. 2004;135(2):317-22. 9-Efh-065678:14 CALCIFIDIOL (72734) VIT D 25 Comments: PATIENT WAS FASTINGClinical Information: ADD [id number] PERFORMED BY: Chef Aymprd2996 [address] RoadDublin [place] [id number] Vitamin D, 25-Hydroxy 39.1 ng/mL (Normal) Range: 32.0-100.0 Comments: Recent studies consider the lower limit of 32.0 ng/mL to be athreshold for optimal health.[facility]. J Nutr. 2004;135(2):317-22. 3-Xql-096798:14 CALCIUM SERUM (20104) Comments: PATIENT WAS FASTINGPERFORMED BY: Chef Grrfnq1852 Cam[address]illo RoadRetailMeNot, Inc.blin [place] [id number] Calcium, Serum 9.5 mg/dL (Normal) Range: 8.5-10.6 8-Gri-504812:14 PARATHORMONE (51780) Comments: PATIENT WAS FASTINGPERFORMED BY: [employer] [facility] Clqonb0605 [address] RoadDublin [place] [id number] PTH, Intact 28 pg/mL (Normal) Range: 15-65 :28 BONE SCAN WHOLE BODY Radiology Report See Note (Normal) Comments: Exam Number: [id number] CLINICAL DATAAbnormal lesion at the left iliac [...] Report See Note (Normal) Comments: Exam Number: [id number] CLINICAL DATAAbnormal lesion left iliac area seen [...] mg/dL (Normal) Range: 5-40 :33 VIT D,25 00551 25.8 ng/mL (Abnormal) Range: 32.0-100.0 Comments: Recent studies consider the lower limit of 32.0 ng/mL to mela threshold for optimal health.Mike ESCOBAR. J Nutr. 2004;135(2):317-22.Performed At: [address]in, [place] [id number] 55-Bys-702353:49 Urinalysis, Office (44975) UA - BILIRUBIN Negative (Normal) UA - BLOOD Hemolyzed Trace (Normal) UA - GLUCOSE Negative (Normal) UA - KETONES Negative mg/dL (Normal) UA - LEUKOCYTE ESTERASE Negative (Normal) Comments: aw UA - NITRITE Negative (Normal) UA - PH 6.0 (Normal) UA - PROTEIN Negative mg/dL (Normal) UA - SPECIFIC GRAVITY 1.010 (Normal) URINE UROBILINGN KATHRYN TIMED Normal mg/dL (Normal) 1-Quc-199809:41 POST VOID RESIDUAL BLADDER Radiology Report See Note (Normal) Comments: Exam Number: [id number] ULTRASOUND OF THE KIDNEYS/POST VOID RESIDUAL URINARY [...] Urinary bladder demonstrates a postvoid residual of baqzhsodfcibs34 cc. Reported By: JOANNE STORY M.D. 02-Feb-20088:21 KIDNEY Radiology Report See Note (Normal) Comments: Exam Number: [id number] ULTRASOUND OF THE KIDNEYS/POST VOID RESIDUAL URINARY [...] Urinary bladder demonstrates a postvoid residual of lrhedzcuixeui24 cc. Reported By: JOANNE STORY M.D. 01-Feb-20088:49 Urinalysis, Office (06739) UA - BILIRUBIN Negative (Normal) UA - BLOOD Hemolyzed Trace (Normal) UA - GLUCOSE Negative (Normal) UA - KETONES Negative mg/dL (Normal) UA - LEUKOCYTE ESTERASE Trace (Normal) UA - NITRITE Negative (Normal) UA - PH 7.0 (Normal) UA - PROTEIN Negative mg/dL (Normal) UA - SPECIFIC GRAVITY 1.010 (Normal) URINE UROBILINGN KATHRYN TIMED Normal mg/dL (Normal) 86-Uqf-76946:45 Urinalysis, Office (03932) UA - BILIRUBIN Negative (Normal) UA - BLOOD Non Hemolyzed Trace (Normal) UA - GLUCOSE Negative (Normal) UA - KETONES Negative mg/dL (Normal) UA - LEUKOCYTE ESTERASE Negative (Normal) UA - NITRITE Negative (Normal) UA - PH 6.5 (Normal) UA - PROTEIN Negative mg/dL (Normal) UA - SPECIFIC GRAVITY 1.000 (Normal) URINE UROBILINGN KATHRYN TIMED Normal mg/dL (Normal) 4-Jlw-192970:50 Urinalysis, Office (80411) UA - BILIRUBIN Negative (Normal) UA - BLOOD Hemolyzed Trace (Normal) UA - GLUCOSE Negative (Normal) UA - KETONES Negative mg/dL (Normal) UA - LEUKOCYTE ESTERASE Negative (Normal) UA - NITRITE Negative (Normal) UA - PH 7.0 (Normal) UA - PROTEIN Negative mg/dL (Normal) UA - SPECIFIC GRAVITY 1.000 (Normal) URINE UROBILINGN KATHRYN TIMED Normal mg/dL (Normal) 96-Nsn-681095:48 ELBOW,MIN 3 VIEWS Radiology Report See Note (Normal) Comments: Exam Number: [id number] RIGHT ELBOW 3 VIEWS CLINICAL STATEMENTFell off couch, pain. There is no fracture visible. Joint spaces are maintained with normalalignment. Fat pads are visible ante riorly but n ot elevatedposteriorly. IMPRESSIONNormal study. Reported By: ETHEL MONDRAGON M.D. :47 FOREARM,2 VIEWS Radiology Report See Note (Normal) Comments: Exam Number: [id number] RIGHT FOREARM - 2 VIEWS. CLINICAL STATEMENTPain. Fell off couch. FINDINGSRoutine views show no fracture, dislocation, joint abnormality, orsoft tissue calcification. IMPRESSIONNo rmal examination of the right forearm. Reported By: ETHEL MONDRAGON M.D. :47 WRIST,MIN 3 VIEWS Radiology Report See Note (Normal) Comments: Exam Number: [id number] RIGHT WRIST - 3 VIEWS. CLINICAL STATEMENTPain. Fell off cough. FINDINGSThere is no fracture. Joint spaces are maintained and normallyaligned. No erosion or soft tissue calcific ation is evident. IMPRESSIONNormal study. Reported By: ETHEL MONDRAGON M.D. :02 Thin prep Pap (51695) Comments: LMP / Prev Treat...JNW=[id number]. of containers..01 CYTYC Thin Prep VialPATIENT NOT FASTINGClinical Information: [id number] PERFORMED BY: Lab[address] [facility] [id number] . . (Normal) DIAGNOSIS: SPRCS (Normal) Comments: NEGATIVE FOR INTRAEPITHELIAL LESION AND MALIGNANCY.Satisfactory for evaluation. Endocervical and/or squamous metaplasticcells (endocervical component) are present.V72.31 ; Routine gynecolog ical examina Hermes Hernandez, Supervisory Side Seam Tender (ASCP) Note: PAPSMR (Normal) Comments: The Pap [...] Report See Note (Normal) Comments: Exam Number: [id number] BILATERAL SCREENING DIGITAL MAMMOGRAM CLINICAL INFORMATIONScreening. Bilateral [...] The mammogramswere also examined with computer-aided detection software(VitaPortal.). Reported By: JOANNE STORY M.D. 6-Kpj-679072:06 Urine Culture,Comprehensive Comments: Clinical Information: SRC:UR PERFORMED BY: [facility] [id number] Result 1 MUG (Normal) Comments: Mixed urogenital Colonies/mL Urine Culture,Comprehensive Final report (Normal) 03-Jul-20078:43 Microscopic Examination Comments: PATIENT WAS FASTINGPERFORMED BY: [employer] Pjrnyb60[address] [place] Juesheng.comCone [facility] [id number] Bacteria None seen (Normal) Crystal Type Amorphous Sediment (Normal) Crystals Present (Abnormal) Epithelial Cells (non renal) 0-10 {/hpf} (Normal) Range: 0 - 10 Mucus Threads Present (Abnormal) RBC 0-3 {/hpf} (Normal) Range: 0 - 3 WBC 11-30 {/hpf} (Abnormal) Range: 0 - 5 03-Jul-20078:43 Urinalysis, Routine Comments: PATIENT WAS FASTINGPERFORMED BY: Contract Cloud6370 [place] Juesheng.comCone [facility] [id number] Appearance Clear (Normal) Bilirubin Negative (Normal) Glucose Negative (Normal) Ketones Negative (Normal) Microscopic Examination See below: (Normal) Nitrite, Urine Negative (Normal) Occult Blood Negative (Normal) pH 7.0 (Normal) Range: 5.0-7.5 Protein Trace (Normal) Specific Hadley 1.025 (Normal) Range: 1.005-1.030 Urine-Color Yellow (Normal) Urobilinogen,Semi-Qn 0.2 mg/dL (Normal) Range: 0.0-1.9 WBC Esterase 1+ (Abnormal) :43 CBC (Auto) (55039) Comments: PATIENT WAS FASTINGPERFORMED BY: VitaPortalWeisman Children's Rehabilitation HospitalXvptdq6996 [facility] [id number] Hematocrit 40.9 % (Normal) Range: 34.0-44.0 Hemoglobin 13.8 g/dL (Normal) Range: 11.5-15.0 MCH 30.1 pg (Normal) Range: 27.0-34.0 MCHC 33.6 g/dL (Normal) Range: 32.0-36.0 MCV 90 fL (Normal) Range: 80-98 Platelets 313 {x10E3/uL} (Normal) Range: 140-415 RBC 4.57 {x10E6/uL} (Normal) Range: 3.80-5.10 RDW 14.2 % (Normal) Range: 11.7-15.0 WBC 5.2 {x10E3/uL} (Normal) Range: 4.0-10.5 :43 Metabolic Panel, Comprehensive Comments: PATIENT WAS FASTINGPERFORMED BY: VitaPortalWeisman Children's Rehabilitation HospitalMstxve7906 [facility] [id number] (89229) A/G Ratio 1.7 (Normal) Range: 1.1-2.5 Albumin, [...] Serum 75 mg/dL (Normal) Range: 65-99 If -Gibraltarian >60 mL/min (Normal) Range: 60-128 Comments: Note: [...] mmol/L (Normal) Range: 135-145 :43 Lipid Panel (27313) Comments: PATIENT WAS FASTINGPERFORMED BY: LabCoWeisman Children's Rehabilitation HospitalLxnpdq0831 [facility] [id number] Cholesterol, Total 245 mg/dL (Abnormal) Range: 100-199 [...] Cholesterol Esau 13 mg/dL (Normal) Range: 5-40 00-Ndf-095801:47 Urinalysis, Office (21334) UA - BILIRUBIN Negative (Normal) UA - BLOOD Non Hemolyzed Trace (Normal) UA - GLUCOSE Negative (Normal) UA - KETONES Negative mg/dL (Normal) UA - LEUKOCYTE ESTERASE Negative (Normal) Comments: aw UA - NITRITE Negative (Normal) UA - PH 7.0 (Normal) UA - PROTEIN Negative mg/dL (Normal) UA - SPECIFIC GRAVITY 1.005 (Normal) URINE UROBILINGN KATHRYN TIMED Normal mg/dL (Normal) 97-Kyj-498849:02 Urinalysis, Office (51817) UA - BILIRUBIN Negative (Normal) UA - BLOOD Non Hemolyzed Trace (Normal) UA - GLUCOSE Negative (Normal) UA - KETONES Negative mg/dL (Normal) UA - LEUKOCYTE ESTERASE Moderate (Normal) UA - NITRITE Negative (Normal) UA - PH 6.0 (Normal) UA - PROTEIN Negative mg/dL (Normal) UA - SPECIFIC GRAVITY 1.010 (Normal) URINE UROBILINGN KATHRYN TIMED 2 mg/dL (Normal) :45 Urinalysis, Office (08486) UA - BILIRUBIN Negative (Normal) UA - [...] ORDER RECEIVED ON FAX MACHINE 10/15/06 @ 4705 JUST PRIOR TOURINES FROM 10/14/06 BEING DISCARDED. [...] Report See Note (Normal) Comments: Exam Number: [id number] 4 VIEWS OF THE RIGHT KNEE AP, [...] Report See Note (Normal) Comments: Exam Number: [id number] 4 VIEWS OF THE RIGHT KNEE AP, [...] mg/dL VLDL 6 mg/dL (Normal) Range: 5-40 37-Ujo-352816:27 C-REACTIVE PROT 16.90 mg/L (Abnormal) Range: 0.0-6.0 Comments: Test performed using the Dimension C-Reactive ProteinExtended Range assay method. This assay meets the AHA/CDC 2003 recommendations fordetermining patients at high risk for cardiovasculardisease. Reference: High risk CRP >3.0 mg/L 76-Fyb-399289:27 CBCD,SMEAR DIFF BASOPHIL 1 % (Normal) Range: [...] 47-70 WBC 4.6 K/mm3 (Normal) Range: 4.4-11.0 15-Cnl-041342:27 ESR SED RATE 7 mm/h (Normal) Range: [...] (I)) Planned Observations CBC with auto diff (59242)Indication: Benign essential hypertension On: 90-Kmd-114315:28 Request METABOLIC PANEL, COMPREHENSIVE (38669)Indication: Benign essential hypertension On: 69-Fxr-848677:28 Request Thin Prep Pap (48700)Indication: Screening for cervical cancer On: 91-Tcl-365924:00 Request Renal function Panel (64717)Indication: Benign essential hypertension On: 0-Rei-455514:12 Request Thin Prep Pap (41946)Indication: Screening for cervical cancer On: 39-Cjn-34021:03 Request Thin Prep Pap (10782)Indication: Well woman exam On: 75-Gso-41261:51 Request CALCIFIDIOL (04707) VIT D 25Indication: Vitamin D deficiency, unspecified On: :28 Request METABOLIC PANEL, COMPREHENSIVE (08676)Indication: Benign essential hypertension On: :28 Request LIPID PANEL (48172)Indication: Benign essential hypertension On: :28 Request CBC W/AUTO DIFF WBC (85405)Indication: Benign essential hypertension On: :28 Request Urinalysis, Office (95131)Indication: Dysuria On: 30-Jmt-281904:27 Request CBC (Auto) (35155)Indication: Elevated blood-pressure reading without diagnosis of hypertension On: 4-Apg-676507:23 Request CALCIFIDIOL (49036) VIT D 25 On: 9-Mhb-449468:23 Request Lipid Panel (58790)Indication: Elevated blood-pressure reading without diagnosis of hypertension On: 8-Fjg-837464:23 Request Metabolic Panel, Comprehensive (25086)Indication: Elevated blood-pressure reading without diagnosis of hypertension On: 1-Our-401010:23 Request URINALYSIS W MICROSCOPY (65632)Indication: Dysuria On: 3-Lkq-041638:50 Request URINALYSIS (14225)Indication: Hypercholesterolemia On: 9-Qcu-107779:21 Request Metabolic Panel, Comprehensive (95061)Indication: Hypercholesterolemia On: :47 Request Lipid Panel (90387)Indication: Hypercholesterolemia On: :47 Request Planned Encounters Medical; [facility] 3 Month FU - On: 26-Mar-2018 10:00 Comprehensive Internal Medicine Mónica Petty MD, MD, Dana M Planned Procedures MAMMOGRAM BREAST LEFT DIAGNOSTIC On: 11-Nov-2017 Intent (52656)By: Mónica Petty MD, MD, Dana M LEFT BREAST ULTRASOUND (93637)By: On: 11-Nov-2017 Intent Mónica Petty MD, MD, Dana M Pap Smear, Medicare (Q0091)By: On: 27-Oct-2017 Intent Mónica Petty MD, MD, Dana M ELECTROCARDIOGRAM, COMPLETE (ECG) On: 22-Oct-2016 Intent (50850)By: Mónica Petty MD Comments: see scanned document of test done to see results reviewed today with patient Mónica HORNER SCREENING DIGITAL TOMOSYNTHESIS OF On: 23-Sep-2016 Intent BREAST (73206)By: Mónica Petty MD, MD, Dana M ZOSTER VACC, [place] (23275)By: Jovanny On: 26-Dec-2015 Intent Mónica HORNER MD, Dana M Comments: Lot:[id number]:12/04/16Dose:1mLRoute:sub q Site:r armGiven By:KATHRINE signed TD VACCINE ADULT (13394)By: Jovanny On: 26-Dec-2015 Mónica Corona MD, MD, Dana M TDAP VACCINE >7 IM (75556)By: Jovanny On: 26-Dec-2015 Mónica Corona MD, MD, Dana M Comments: Lot:[id number]:04/13/18Dose:0.5mgRoute:imSite:r arm Given By:KATHRINE signed BILATERAL MAMMOGRAMS (29630)By: On: 05-Dec-2015 Mónica Mark MD, MD, Dana M MAMMOGRAM, SCREENING, BOTH BREAST On: 20-Oct-2014 Intent (44408)By: Mónica Petty MD, MD, Dana M Radiology [...] MD, Mónica Mcarthur DEXA SCAN AXIAL SKELETON (49934)By: On: 19-Oct-2013 Intent Mónica Petty MD, MD, Dana M MAMMOGRAM, SCREENING, BOTH BREASTS On: 22-Apr-2013 Intent (80643)By: Mónica Petty MD, MD, Dana M Eprescribed prescriptions (G8553)By: On: 22-Apr-2013 Intent Mónica Petty MD, MD, Mónica Mcarthur SPECIMEN HANDLING/TRANSPORT On: 20-Nov-2011 Intent (29708)By: Mary Lemon LPN ADMNIN, 1 VAC, SNGL/COMBO On: 05-Nov-2011 Intent (16106)By: Kiera Kim LPN Comments: DECLINED FLU VAC, SPLIT, >3 YEARS, INTRAMUSC On: 05-Nov-2011 Intent (41753)By: Kiera Kim LPN Comments: DECLINED Spirometry (97731)By: Jovanny HORNER, On: 07-May-2011 Intent Mónica Gatica MD PNEUM VAC ADLT/IMUMNOSPR, SBC/INTRM On: 07-May-2011 Intent (49158)By: Mónica Petty MD, MD, Dana M MAMMOGRAM, SCREENING, BOTH BREASTS On: 07-May-2011 Intent (28341)By: Mónica Petty MD, MD, Dana M DXA, BONE DENSITY, AXIAL SKELETON On: 07-May-2011 Intent (33988)By: Jovanny HORNER, Mónica Gatica MD Nuclear Stress Test/Stress On: 24-Jul-2010 Intent SPECT/TreadmillBy: Mónica Petty MD, MD, Dana M Echo CompleteBy: Mónica Petty MD On: 24-Jul-2010 Intent Mónica Petty MD MAMMOGRAM, SCREENING, BOTH BREASTS On: 24-Jul-2010 Intent (13817)By: Mónica Petty MD, MD, Mónica Mcarthur EKG (79492)By: FLOR Santana On: 24-Jul-[address] - Abdomen & Pelvis (IV Contrast On: 15-Mar-2010 Intent Needed)By: Alma Jansen DO Comments: call wiht wet read to doc stone splitter MAMMOGRAM, SCREENING, BOTH BREASTS On: 07-Aug-2009 Intent (36354)By: Mónica Petty MD, MD, Dana M CT - ChestBy: Alma Jansen DO On: 02-Nov-2008 Intent Comments: PE PROTOCOL Pulse Oximetry (90444)By: Inderjit BECK, On: 02-Nov-2008 Intent Alma Bone Density StudyBy: Jovanny HORNER, On: 02-Aug-2008 Intent Mónica Gatica MD Nuclear Medicine - Bone ScanBy: On: 02-Aug-2008 Intent Mónica Petty MD, MD, Mónica Mcarthur Ultrasound - RenalBy: Kellen Upton CNP On: 01-Feb-2008 Intent E SPECIMEN HANDLING/TRANSPORT On: 04-Jan-2008 Intent (64101)By: Dang Song Radiology - Hand - RightBy: Ciesa On: 22-Oct-2007 Intent [facility] - Forearm - RightBy: Ciesa On: 22-Oct-2007 Intent [facility] MAMMOGRAM, SCREENING, BOTH BREASTS On: 02-Jul-2007 Intent (41238)By: Mónica Petty MD, MD, Mónica Mcarthur EKG ([id number])By: FLOR Santana On: 02-Jul-2007 Intent Spirometry ([id number])By: Max, On: 02-Jul-2007 Intent FLOR Pulse Oximetry ([id number])By: Max On: 02-Jul-2007 Intent FLOR Toradol Injection, 30 mg ([id number])By: On: 04-Sep-2006 Intent Mónica Petty MD, MD, Mónica Mcarthur Solu -Medrol Injection, 125 mg On: 01-Apr-2006 Intent ([id number])By: Mónica Petty MD, MD, Dana M MAMMOGRAM, SCREENING, BOTH BREASTS On: 26-Feb-2006 Intent ([id number])By: Mónica Petty MD, MD, Mónica Mcarthur Planned Medications INJECTION, TRIAMCINOLONE ACETONIDE, NOT OTHERWISE [...] The patient does have durable power of criminal defense attorney and living will. The patient has [...] for Tdap vaccination (Renamed from Need for orrllanbbx-zamamyi-jshbzpczr (Tdap) vaccine, adult/adolescent), Need for zoster vaccination [...]
--- OUTSIDE RECORDS SUMMARY | 2018-05-22 05:26 | XMS RPT_ITS | Continuity of Care Document ---
:1950 Author Organization [facility] Address [address] [facility] [address] [place] [address] Phone Care Team Providers Name Role Phone Mónica Ptety MD Unavailable Dr. Junior Boyle Unavailable Yasmin HORNER , Dr. Ishmael Mcarthur Unavailable FLOR Santana Unavailable Unavailable Unavailable Unavailable Problems Name Dates Details Abnormal EKG (R94.31, 794.31) Comments: conduction delay staying now ? [facility] hard to tell with [...] PHQ-9 (2) minimal, 6CIT= mammo 12-17, BD -18. pap was 2012. Status: Active Medications Name [...] : 01-Sep-2017 Active Co-Adren uad qd Active Levaquin 500 MG Oral Tablet 1 Tablet qd for 0 days Quantity: 10 {Tablet} Refills: 0 Ordered:05-Feb-2018 Mónica Petty MD, MD, Dana M Start : 05-Feb-2018 Active Liposomel Glutathione uad qd Active Lisinopril 40 MG Oral Tablet 1 Tablet daily for 0 days Quantity: 90 {Tablet} Refills: 3 Ordered:01-Sep-2017 Mónica Petty MD, MD, Dana M Start : 01-Sep-2017 Active Macrobid 100 MG Oral Capsule uad Capsule postcoital prn for 0 days Quantity: 30 {Capsule} Refills: 3 Ordered:27-Oct-2017 Mónica Petty MD, MD, Dana M Start : 27-Oct-2017 Active Mobic 15 MG Oral Tablet 1 (one) Tablet Tablet in am for 0 days Quantity: 15 {Tablet} Refills: 0 Ordered:27-Oct-2017 FLOR Santana Start : 27-Oct-2017 Active NALTREXONE (Powder) 4.5mg qd Active Comments:comes from compound pharmacy, Dr. Solis Phosamy Choline uad qd Active Proventil HFA 108 [...] days Quantity: 22 {Tablet} Refills: 0 Ordered:08-Mar-2008 Rosemarymengmane AYERSKellen Start : 08-Mar-2008 End : 23-Mar-2008 Inactive [...] Refills: 3 Ordered:12-Jul-2016 Mónica Petty MD, MD, Mónica Mcarthur Start : 12-Jul-2016 End : 12-Jul-2016 Inactive Comments:12 samples given ERGOCALCIFEROL, 00768JHEB (Oral Capsule) 1 Capsule twice weekly for [...] days Quantity: 14 {Capsule} Refills: 0 Ordered:29-May-2009 Kellen Upton CNP Start : 27-Apr-2009 End : 04-May-2009 Inactive Lentra uad qd Inactive NASONEX, 50MCG/ACT (Nasal Suspension) 2 (two) [...] {Tablet} Refills: 3 Ordered:27-Feb-2012 Mónica Petty MD, MD Mónica M Start : 27-Feb-2012 End : [...] Cough (R05, 786.2) Status: Inactive as of 24-Aug-2008 Diverticulitis (K57.92, 562.11) Status: Inactive as of [...] for Tdap vaccination (Renamed from Need for ionrtvpruh-ftowlye-hcbdgwmxd (Tdap) vaccine, adult/adolescent) (Z23, V06.1) Status: Resolved [...] Visit Report Result: Comments: See Note; NOTES: [facility] [address] [facility] [place] [address] OFFICE VISIT Date of Service: 12/15/17 1053 MR#: [id number] Acct: [id number] Name: AZALIA HUNTLEY Rep #: [id number] : 1950 From: Angel Shin MD Age/Sex: [...] inv asion. Tumor is ER positive (95%) AZ positive (40%) (and HER-2 not overexpressed. Patient made an uneventful recovery from her surgery. Oncotype DX testing showed her to be at low risk group with a sco re of 13. Her past medical history is notable for Parkinson's disease, hypertension and vitamin D deficiency state. No family history of breast cancer Treatment: February 12, 2017 she underwent a r [...] right breast grade 2, E R positive, AZ positive, HER-2/skylar not overexpressed. Patient is status [...] Angel Shin MD> Date Angel Shin MD Critical access hospital Signature: Date (if applicable) CC: 17-Nov-2017 Breast Limited Unilateral Result: Comments: See Note; NOTES: [facility] Imaging Services [address] [place] [address] Breast Limited Unilateral MR#: [id number] Acct: [id number] Name: PARUL HUNTLEY Rep # : [id number] : 1950 F 67 From: Justice Gerardo MD PCP: Mónica Petty MD Status: REG CLI Study: Breast Limited Unilateral Date of Exam: 11/17/17 Exam# [id number] Ordering Dr: Mónica Petty MD STUDY: ULTRASOUND [...] Justice Gerardo MD at 8:37 EDT Tel [phone], Service support , Fax CC: Mónica Petty MD Supervisor Pumping: Signed 17-Nov-2017 DIAG MAMM W/CAD, UNILAT Result: Comments: See Note; NOTES: [facility] Imaging Services [address] [place] [address] DIAG MAMM W/CAD, UNILAT MR#: [id number] Acct: [id number] Name: PARUL HUNTLEY Rep #: [id number] : 1950 F 67 From: Justice Gerardo MD PCP: Mónica Petty MD Status: REG CLI Study: DIAG MAMM W/CAD, UNILAT Date of Exam: 11/17/17 Exam# [id number] Ordering Dr: Mónica Petty MD [facility] MOGRAPHY - UNILATERAL DIAGNOSTIC: LEFT BREAST [...] Justice Gerardo MD at 14:13 EDT Tel [phone], Service support , CC: Mónica Petty MD Supervisor Pumping: Signed 06-Nov-[address] w/CCTA Result: Comments: See Note; NOTES: [facility] Imaging Services [address] [place] [address] w/CCTA MR#: [id number] Acct: [id number] Name: PARUL HUNTLEY Rep #: [id number] : 1950 F 67 From: Farhat Montalvo DO PCP: Mónica Petty MD Status: REG CLI Study: Limited Chest CT w/CCTA Date of Exam: 11/06/17 Exam# [id number] Ordering Dr: Mónica Petty MD STUDY: CAR DIAC CALCIUM SCORING - CT CHEST REASON FOR EXAM: Female, 67 years old. Elevated cholesterol. History of breast cancer. RADIATION DOSAGE (If Supplied By Facility): CTDIvol = ( 12.19 ) mGy, DLP = ( 243. 79 ) mGycm TECHNIQUE: Axial non-enhanced images were acquired through the heart for the sole purpose of measuring coronary artery calcium. Individualized dose optimization techniques were used for [facility] s CT. COMPARISON: Chest, January 26, 2013. [...] Normal visualized upper abdomen. ORD ER #: [id number] CT/Limited Chest CT w/CCTA IMPRESSION: 1. Status post right mastectomy. 2. There is no intrathoracic abnormality. Electronically Signed: Farhat Montalvo DO at 18:54 EDT Tel [phone], Service support , CC: Mónica Petty MD Supervisor Pumping: Signed 11-Sep-2017 Oncology Visit Report Result: Comments: See Note; NOTES: [facility] [address] [place] [address] [place] [address] OFFICE VISIT Date of Service: 09/11/17 [facility] MR#: [id number] Acct: [id number] Name: AZALIA HUNTLEY Rep #: [id number] : 1950 From: Angel Shin MD Age/Sex: [...] lymphovascular invasion. Tumor is ER positive (95%) AZ positive (40%) (and HER-2 not overexpresse d. [...] the right breast grade 2, ER positive, AZ positive, HER-2/skylar not overexpressed. Patient is status [...] Visit Report Result: Comments: See Note; NOTES: [facility] [address] [place] [address] OFFICE VISIT Date of Service: 08/22/17 MR#: [id number] Acct: [id number] Name: MARY HUNTLEY Rep #: [id number] : 1950 Provider: Johann Drake MD Age/Sex: 67/F Location: [facility] Status: Signed HPI [facility] Chief Complaint: Follow-up visits. 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 [place] [address] OFFICE VISIT Date of Service: 06/12/17 1108 MR#: [id number] Acct: [id number] Name: AZALIA HUNTLEY Rep #: [id number] : 1950 From: Angel Shin MD Age/Sex: [...] invas ion. Tumor is ER positive (95%) AZ positive (40%) (and HER-2 not overexpressed. Patient [...] the right breast grade 2, ER positive, AZ positive, HER-2/skylar not overexpressed. Patient is status [...] Date (if applicable) CC: Mónica Petty MD -Apr-2017 Surgery Visit Report Result: Comments: See Note; NOTES: [facility] [address] [place] [address] OFFICE VISIT Date of Service: 04/04/17 MR#: [id number] Acct: [id number] Name: PARUL BERMEO Rep #: [id number] : 1950 Provider: Adilson Crawford MD Age/Sex: 66/F Location: [facility] Status: Signed Intake Intake Visit Reasons: 1 M FU Mastectomy Manager Drug Required: N o Is patient in pain?: [...] 02/10/17 [History Confirmed 04/04/17] Ubidecarenone/Vitamin E Mixed [Blw80-Blk E 200 mg- 20 Unit Sfg] 1 [...] year to follow-up. Adilson Crawford MD Pager: [facility] [address], [address] [address] Office: Coding Level of Care Code Global Post Op Diagnoses Primary cancer of right f emale breast C50.911 04/04/17 1354 <Electronically signed by Adilson Crawford MD> Date Adilson Crawford MD Cosigner Signature: Date (if applicable) CC: Mónica Petty MD 18-Mar-2017 Dexa Bone Density Study (HP) Result: Comments: See Note; NOTES: [facility] Imaging Services [address] [place] [address] Dexa Bone Density Study () MR#: [id number] Acct: [id number] Name: PARUL HUNTLEY p #: [id number] : 1950 F 66 From: Justice Gerardo MD PCP: Mónica Petty MD Status: REG CLI Study: Dexa Bone Density Study () Date of Exam: 03/18/17 Exam# [id number] Ordering Dr: Skylar Shin MD STUDY: DUAL [...] Justice Gerardo MD at 15:58 EST Tel [phone], Service support , CC: Mónica Petty MD; Angel Shin MD Supervisor Pumping: Signed 17-Mar-2017 Plastic Surgery Visit Report Result: Comments: See Note; NOTES: [facility] [address] [place] [address] OFFICE VISIT Date of Service: 02/05/17 MR#: [id number] Acct: [id number] Name: PARUL HUNTLEY Rep #: [id number] : 1950 Provider: Tyler Amezcua MD Age/Sex: 66/F Location: [facility] Status: Signed Intake Vital Signs02/05/17 Height 5 ft 2 in 02/05/17 Weight: 14 5 lb 02/05/17 Body Mass Index (BMI) 26.5 02/05/17 Respiratory Rate 20 Intake Visit Reasons: evaluation breast reconstruction Manager Drug Required: No Is patient in pain?: No [...] 02/10/17 [History Confirmed 03/13/17] Ubidecarenone/Vitamin E Mixed [Lnr28-Psu E 200 mg-20 Unit Sfg] 1 ea [...] receptors were positive. Progesterone receptors were positive. Vlg2fgu was negative. She comes in today to [...] for breast cancer. Father: age 60 of [place], hx CAD Mother: age 70 of [place], hx CAD and diabetes SOCIAL HISTORY: Patient [...] main types of reconstruction are using an formwork carpenter and/or implant or using autogenous tissue such as the abdominal tissue or the back tissue. The oth er option would be a combination of [...] Physical Exam Result: Comments: See Note; NOTES: [facility] Medical Records Department [address] [place] [address] History and Physical 03/13/17 1056 MR#: [id number] Acct: [id number] Name: Roe HUNTLEY Rep #: [id number] : 1950 66 From: Angel Shin MD PCP: Mónica Petty MD Status: REG RCR Y Location: [facility] (1) Primary cancer of right female [...] lymphovascular invasion. Tumor is ER positive (95%) AZ positive (40%) (and HER-2 not overexpressed. Patient made an uneventful recovery from her surgery. Oncotype DX testing showed her to be at low risk group with a score of 13. Her past medical history is notable for Parkinson's disease, hypertension and vitamin D deficiency state. No family history of breast cancer Power of Director Reactor Projects: Yes Living Will: Yes Health History: Cancer [...] drinking: Has the patient needed an eye registered travel nurse in the mornings: Comments: Date of last [...] the right breast grade 2, ER positive, AZ positive, HER-2/skylar not overexpressed. Patient is status [...] indicated. Patient was seen was her and cexzlsto-ne-erp. Impression and recommendation discussed. The rationale behind [...] Visit Report Result: Comments: See Note; NOTES: [facility] [address] [place] [address] OFFICE VISIT Date of Service: 03/04/17 MR#: [id number] Acct: [id number] Name: PARUL BERMEO Rep #: [id number] : 1950 Provider: Adilson Crawford MD Age/Sex: 66/F Location: [facility] Status: Signed Intake Intake Visit Reasons: 2 week f/u mastectomy Manager Drug Require d: No Is patient in pain?: [...] 02/10/17 [History Confirmed 03/04/17] Ubidecarenone/Vitamin E Mixed [Zfj14-Nrf E 200 mg-20 Unit Sfg] 1 ea [...] but I am hoping this will dissipate Adislon Crawford MD Pager: [facility] [address], [address] [facility] [place] [address] Office: Medications New: 03/05/17 0903 <Electronically signed by Adilson Crawford MD> Date Adilson Crawford MD Cosigner Signature: Date (if applicable) CC: Mónica Petty MD; Angel Shin MD 13-Feb-2017 Discharge Summary Result: Comments: See Note; NOTES: [facility] Medical Records Department [address] [place] [address] Discharge Summary 02/13/17 0804 MR#: [id number] Acct: [id number] Name: NEYMAR HUNTLEY Rep #: [id number] : 1950 66 From: Adilson Crawford MD PCP: Mónica Petty MD Status: REG [facility] Y Location: [place] [address] Discharge Date and Diagnosis - Problem List [...] Imaging Results: Clinical Impression(s) from Imaging Studies Florala Node 02/12/17 11:00 IMPRESSION: Injectio n of 1.1 mCi of technetium level sulfur colloid for sentinel node imaging. Electronically Signed: Justiec Gerardo MD at 12:38 EST Tel [phone], Service support , Fax Operations: - - [...] patch TRANSDERM. DAILY 02/10/17 Ubidecarenone/Vitamin E Mixed [Vqj73-Gvr E 200 mg-20 Unit Sfg] 1 each [...] call today to make appt mon or [phone] Meaningful Use Info Meaningful Use Diagnoses (Choose all that apply): None applicable 02/13/17 08 <Electronically signed by Adilson Crawford MD> Date Adilson Crawford MD Cosigner Signature (if applicable): Date CC: Adilson Crawford MD; Mónica Petty MD Signed 13-Feb-2017 Discharge Summary Result: Comments: See Note; NOTES: [facility] Medical Records Department [address] [place] [address] Discharge Summary 02/13/17 0753 MR#: [id number] Acct: [id number] Name: NEYMAR HUNTLEY Rep #: [id number] : 1950 66 From: Adilson Crawford MD PCP: Mónica Petty MD Status: REG [facility] Y Location: [place] [address] Discharge Date and Diagnosis - Problem List [...] patch TRANSDERM. DAILY 02/10/17 Ubidecarenone/Vitamin E Mixed [Byz90-Ihf E 200 mg-20 Unit Sfg] 1 each [...] Discharge Instruction Result: Comments: See Note; NOTES: [facility] Medical Records Department [address] [place] [address] Instructions for Home/Discharge Instructions 02/13/17 0756 MR#: [id number] Acct: [id number] Name: PARUL HUNTLEY Rep #: [id number] : 1950 66 From: Adilson Crawford MD PCP: Mónica Petty MD Status: REG [facility] Discharge Diet: No Restrictions Discharge Activity: May [...] TRANSDERM. LAUREANO LY 02/10/17 Ubidecarenone/Vitamin E Mixed [Tls94-Uyn E 200 mg-20 Unit Sfg] 1 each [...] call today to make appt mon or [phone] 02/13/17 8456 <Electronically signed by Adilson Crawford MD> Date _ Adilson Crawford MD CC: Mónica Petty MD 12-Feb-2017 Operative Report Result: Comments: See Note; NOTES: [facility] Medical Records Department [address] [place] [address] Operative Report 02/12/17 1709 MR#: [id number] Acct: [id number] Name: SCOTT HUNTLEY Rep #: [id number] : 1950 66 From: Adilson Crawford MD PCP: Mónica Petty MD Status: REG [facility] Y Location: [place] [address] Problem List (1) Breast cancer, right Status: Acute Qualifiers: [address] location: central portion of breast Estrogen [...] hemostat was used to bring a 15 Chinese round drain into the inferior flap. The [...] VTE Mechan Device Proph ylaxis: SCD's 02/12/17 5354 <Electronically signed by Adilson Crawford MD> Date Adilson Crawford MD CC: Adislon Crawford MD; Mónica Petty MD Signed 12-Feb-2017 Lymph Node Injection Only Result: Comments: See Note; NOTES: [facility] Imaging Services [address] [place] [address] Lymph Node Injection Only MR#: [id number] Acct: [id number] Name: PARUL HUNTLEY Rep # : [id number] : 1950 F 66 From: Justice Gerardo MD PCP: Mónica Petty MD Status: [facility] Study: Lymph Node Injection Only Date of Exam: 02/12/17 Exam# [id number] Ordering Dr: Patti Crawford MD PROCEDURE: NUCLEAR MEDICINE Injection Florala Node - RIGHT breast(s). REASON FOR EXAM: Female, 66 years old. Right breast cancer. TECHNIQUE: Florala node localization using radionuclide metho ds of [...] Justice Gerardo MD at 12:38 EST Tel [phone], Service support , Fax CC: Adilson Crawford MD; Mónica Petty MD Supervisor Pumping: Signed 03-Feb-2017 PET/CT Tumor Base -Thigh Init Result: Comments: See Note; NOTES: [facility] Imaging Services [address] [place] [address] PET/CT Tumor Base -Thigh Init MR#: [id number] Acct: [id number] Name: PARUL HUNTLEY ep #: [id number] : 1950 F 66 From: Richard Pino DO PCP: Mónica Petty MD Status: REG CLI Study: PET/CT Tumor Base -Thigh Init Date of Exam: 02/03/17 Exam# [id number] Ordering Dr: Chris Crawford MD EXAMINATION: FDG [...] manifest in the right breast 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 of the [...] CC: Adilson Crawford MD; Mónica Petty MD Supervisor Pumping: Signed 13-Jan-2017 Breast w/o and/or W Cont Bilat Result: Comments: See Note; NOTES: [facility] Imaging Services [address] [place] [address] Breast w/o and/or W Cont Bilat MR#: [id number] Acct: [id number] Name: PARUL HUNTLEY Rep #: [id number] : 1950 F 66 From: Joanne Hagen MD PCP: Mónica Petty MD Status: REG CLI Study: Breast w/o and/or W Cont Bilat Date of Exam: 01/13/17 Exam# [id number] Ordering Dr: Chris Crawford MD STUDY: BILATERAL [...] CC: Adilson Crawford MD; Mónica Petty MD Supervisor Pumping: Signed 26-Dec-2016 Breast Limited Unilateral Result: Comments: See Note; NOTES: [facility] Imaging Services [address] [place] [address] Breast Limited Unilateral MR#: [id number] Acct: [id number] Name: PARUL HUNTLEY Rep # : [id number] : 1950 F 66 From: Justice Gerardo MD PCP: Mónica Petty MD Status: REG CLI Study: Breast Limited Unilateral Date of Exam: 12/26/16 Exam# [id number] Ordering Dr: Mónica Petty MD STUDY: ULTRASOUND [...] a suspicious lesion. A biopsy is recommended. US/[facility] Limited Unilateral IMPRESSION: 9 mm x [...] Justice Gerardo MD at 15:02 EDT Tel [phone], Service support , CC: Mónica Petty MD Supervisor Pumping: Signed 26-Dec-2016 SCREENING MAMM (CAD), BILAT Result: Comments: See Note; NOTES: [facility] Imaging Services [address] [place] [address] SCREENING MAMM (CAD), BILAT MR#: [id number] Acct: [id number] Name: PARUL HUNTLEY Rep #: [id number] : 1950 F 66 From: Justice Gerardo MD PCP: Mónica Petty MD Status: REG CLI Study: SCREENING MAMM (CAD), BILAT Date of Exam: 12/26/16 Exam# [id number] Ordering Dr: Mónica Petty MD MAMMOGRAPHY - [...] delay biopsy of a clinically suspicious abnormality. [id number] Electronically Signed: Justice suggs MD at 11:31 EDT Tel [phone], Service support , CC: Mónica Petty MD Supervisor Pumping: Signed 20-Dec-2015 Bilat Scrn Digital AND CAD Result: Comments: See Note; NOTES: [facility] Imaging Services [address] [place] [address] Verdana 4d Bilat Scrn Digital AND CAD MR#: [id number] Acct: [id number] Name: SCOTT HUNTLEY Rep #: [id number] : 1950 F 65 From: Justice Gerardo MD PCP: Mónica Petty MD Status: REG CLI Study: Bilat Scrn Digital AND CAD Date of Exam: 12/20/15 Exam# [id number] Ordering Dr: Mónica Corral MD MAMMOGRAPHY - [...] delay biopsy of a clinically suspicious abnormality. [id number] Electronically Signed: Justice Gerardo MD at 14:08 EDT Tel [phone], Service support [phone], CC: Mónica Petty MD Supervisor Pumping: Signed 13-Dec-2014 Bilat Scrn Digital AND CAD Result: Comments: See Note; NOTES: [facility] Imaging Services [address] [place] [address] Breast Imaging Report MR#: [id number] Acct: [id number] Name: PARUL HUNTLEY Rep #: [id number] : 1950 F 64 From: Justice Gerardo MD PCP: Mónica Petty MD Status: REG CLI Study: Bilat Vero Digital AND CAD Date of Exam: 12/13/14 Exam# [id number] Ordering Dr: Mónica Grant MD MAMMOGRAPHY - [...] Justice Gerardo MD at 8:13 EDT Tel [phone], Service support [phone], CC: Mónica Petty MD Supervisor Pumping: Signed 26-Apr-2014 Knee 4 or More Views Result: Comments: See Note; NOTES: [facility] Imaging Services [address] [place] [address] Radiology Report MR#: [id number] Acct: [id number] Name: PARUL HUNTLEY Rep #: [id number] : 1950 F 63 From: Justice Gerardo MD PCP: Mónica Petty MD Status: REG CLI Study: Knee 4 or More Views Date of Exam: 04/26/14 Exam# [id number] Ordering Dr: Mónica Petty MD S TUDY: [...] Gerardo MD 2 at 15:36 EST Tel [phone], Service support [phone], CC: Mónica Petty MD Supervisor Pumping: Signed 17-May-2013 Cristi Pham Digital & CAD Result: Comments: See Note; NOTES: [facility] Imaging Services [address] [place] [address] Breast Imaging Report MR#: [id number] Acct: [id number] Name: PARUL HUNTLEY Rep #: [id number] : 1950 F 62 From: Justice Gerardo MD PCP: Mónica Petty MD Status: REG CLI Exam# [id number] Ordering Dr: Mónica Petty MD MAMMOGRAPHY - [...] M.D. at 11:03 EDT , Service support [phone], CC: Mónica Petty MD Supervisor Pumping: Signed Family History Unknown Family Member Name Dates Details 8 siblings: Sjorgens, DM in 2 sisters, RA, younger sister had [place] and DM Comments: [place] at 63yo. hyperthyriodism Status: Active Father Comments: at 67 from [place], not involved with him not know history, acoholism Status: Active maternal cousin neck cancer 17 yo Status: Active maternal uncle Parkinsons Status: Active Mother Comments: at 67 from [place], DM in 50's obesity. some high cholesterol. 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 left [place] at 18 yo to live with sister [...] Diastolic 82 mm[Hg] Comments: Patient Position: Sitting 74-Bpq-604305:30 Temperature 97.8 f Comments: Method: Temporal Pulse [...] kg/m2 Body Surface Area Calculated 1.66 m2 :21 Temperature 98.2 f Comments: Method: Temporal Pulse [...] Cuff Location: Left Arm; Cuff Size: Large 29-Wph-214769:13 Temperature 97.7 f Comments: Method: Oral Pulse [...] Height 0 in Head Circumference 0.00 cm 94-Xjj-171154:20 Temperature 97.6 f Comments: Method: Oral Pulse [...] 0.00 cm Results Date Description Value Details 98-Sqk-71198:48 Pap IG, rfx HPV Comments: Source.............Cervix;EndocervixNo. of containers..01 ThinPrep VialPATIENT NOT FASTINGPERFORMED BY: [facility] [address] [id number] Information: [id number] all pth Note: PAPSMR (Normal) Comments: The [...] t) are present.Partially obscuring thick areas are present.Z12.4Erin Gerald, Operations Forester ([facility])Cassie Jain, Supervisory Operations Forester ([facility]) 72-Atk-707529:58 C-REACT PROT HIGH SENS(hsCRP) Comments: PATIENT NOT FASTINGPERFORMED BY: [facility] [facility] [id number] ([id number]) C-Reactive Protein, Cardiac 11.71 mg/L (Abnormal) Range: 0.00-3.00 Comments: Relative Risk for Future Cardiovascular Event Low <1.00 Average 1.00 - 3.00 High >3.00 10-Hlj-202427:12 Microscopic Examination Comments: PATIENT NOT FASTINGPERFORMED BY: [facility] [facility] [id number] Bacteria Moderate (Abnormal) Mucus Threads Present (Normal) Crystal Type Amorphous Sediment (Normal) Crystals Present (Abnormal) Epithelial Cells (non renal) 0-10 {/hpf} (Normal) Range: 0 - 10 RBC 3-10 {/hpf} (Abnormal) Range: 0 - 2 WBC >30 {/hpf} (Abnormal) Range: 0 - 5 06-Dux-416211:46 URINE BOOGIE CULTURE-IDENTIFICATN Comments: PATIENT NOT FASTINGPERFORMED BY: [facility] Center[address] [facility] [id number] Information: SRC:MICHELLE (52941) Antimicrobial MIHEAD (Normal) Comments: S = Susceptible; [...] and Proteusmirabilis. Urine Final report Culture,Comprehensive (Abnormal) 23-Ndv-105799:27 CBC W/Diff, Automated Comments: Reason for Laboratory Test .[facility] [address] [place], [place], [address] Absolute Lymph 1.08 {X10_3/ul} (Normal) Range: 0.83-4.51 [...] 4.2-5.4 WBC 5.0 K/mm3 (Normal) Range: 4.4-11.0 95-Vzy-280234:27 Comprehensive Metabolic Profil Comments: Reason for Laboratory Test .[facility] [address] [place], [address] GAP 6 (Normal) Range: 5-15 CO2 29.0 [...] Comments: Please note revised GLUCOSE reference range afnmperfu25/02/2018. 87-Uel-161852:55 CBC W/Diff, Automated Comments: Reason for Laboratory Test .[facility] [address] [place], [address] Absolute Lymph 1.26 {X10_3/ul} (Normal) Range: 0.83-4.51 [...] 4.2-5.4 WBC 4.6 K/mm3 (Normal) Range: 4.4-11.0 56-Lqk-058182:55 Comprehensive Metabolic Profil Comments: Reason for Laboratory Test .[facility] [address] [place], [address] GAP 6 (Normal) Range: 5-15 CO2 28.0 mmol/L (Normal) Range: 21.0-32.0 CL 107 mmol/L (Normal) Range: 98-107 K 4.1 mmol/L (Normal) Range: 3.5-5.1 NA 141 mmol/L (Normal) Range: 136-145 T BILI 0.40 mg/dL (Normal) Range: 0.20-1.00 ALT 21 U/L (Normal) Range: 13-56 Comments: Please note revised ALT reference range vsckuylcp10/28/2018. ALK P 76 U/L (Normal) Range: 45-117 [...] Comments: Please note revised GLUCOSE reference range isufeanig62/02/2018. 36-Ifv-290553:55 Vitamin D,25 Hydroxy Comments: Reason for Laboratory Test .[facility] [address] [facility]. [place], [place], [id number] Vitamin D 25-OH 33.6 ng/mL (Normal) Range: 29.95-100.01 Comments: Vitamin D 25(OH) Status Range Deficiency <20 ng/mL (50nmol/L) Insuffciency 20 - 30 ng/mL (50 - 75 nmol/L) Sufficiency 30 - 100 ng/mL (75 - 250 nmol/L) Toxicity >100 ng/mL (>250 nmol/L) 23-Kvh-323972:14 CBC W/Diff, Automated Comments: Reason for Laboratory Test [facility] [address]ynt64[address] [facility] [place], [address] Absolute Lymph 1.49 {X10_3/ul} (Normal) [...] 4.2-5.4 WBC 6.0 K/mm3 (Normal) Range: 4.4-11.0 40-Mxk-425144:14 Comprehensive Metabolic Profil Comments: Reason for Laboratory Test [facility] [address] [place], [place], [address] GAP 7 (Normal) Range: 5-15 CO2 28.0 [...] 7-18 GLU 96 mg/dL (Normal) Range: 70-110 44-Qjz-53572:34 Basic Metabolic Profile (BMP) Comments: [facility] [address] [place], [address] GAP 8 (Normal) Range: 5-15 CO2 25.0 [...] A.D.A. criteria. :34 CBC W/Diff, Automated Comments: [facility] [address] [place], [place], [address] Absolute Lymph 0.74 {X10_3/ul} (Abnormal) Range: 0.83-4.51 [...] Range: 4.4-11.0 :20 Partial Thromboplast Time Comments: [facility] [address] [place], [place], [address] PTT 27.7 s (Normal) Range: 24.1-36.2 87-Heb-094956:20 Prothrombin Time w/INR Comments: [facility] [address] [place], [address] INR 1.0 (Normal) PROTIME 12.5 s (Normal) Range: 11.7-14.9 67-Cjj-079867:57 CBC-Complete Blood Cnt No Diff Comments: [facility] [address] [place], [address] MPV 10.2 fL (Normal) Range: 6.2-12.0 PLT [...] 4.2-5.4 WBC 4.5 K/mm3 (Normal) Range: 4.4-11.0 52-Dfc-132248:57 Liver Profile Comments: [facility] [address] [place], [address] D BILI 0.15 mg/dL Range: 0.00-0.30 (Normal) [...] BIOPSY (CHOOSE SITE) See Note (Normal) Comments: [facility] [address] [place], [address] 710:35 Comments: Patient: PARUL HUNTLEY : 1950 (66/F) Acct Num: [id number] Phys: Adilson Crawford MD Unit Num: [id number] Loc: LABSPEC Specimen: [id number] Received: 01/16/17943 Spec Type: BREAST BX TISSUES TISSUES: COMMENT Immunohistochemistry ([id number]) supports the above diagnosis. ER/AZ/Qey1hsd studies are being performed on sections of tumor and the r esults from this study will be reported separately ([id number]). GROSS DESCRIPTION Received in fixative is one container labeled with the patient's name and designated right breast tissue. The s pecimen consists of multiple elongated fragments of cabrera-yellow fibroadipose tissue that in aggregate measure 2 x 0.3 x 0.1 cm. The entire specimen is submitted in one cassette. / SJ:abena 01/16/17 TC:0 CPT: 10417 HEADER OPERATION: Right breast mammotome biopsy PRE-OP [...] on file> IMMUNOHISTOCHEMISTRY See Note (Normal) Comments: [facility] [address] [place], [address] 70:00 Comments: Patient: PARUL HUNTLEY : 1950 (66/F) Acct Num: [id number] Phys: Adilson Crawford MD Unit Num: [id number] Loc: LABSPEC Specimen: [id number] Received: 01/17/17 - 1256 Spec Type: IMMUNO TISSUES TISSUES: SPECIMEN INFORMATION: Tissue Source: Right breast tissue Clinical Info: Abnormal breast MRI Specimen Number: [id number] CPT code: 70485, 883 41 x4, 35829 x3 METHODOLOGY: Deparaffinized sections of prefer/formalin- fixed tissue or PAP/DQ stained slides are incubated with monoclonal/polyclonal antibodies/oligonucleotide probes. Localizati on is made via biotin free immunoperoxidase method. Appropriate controls are performed and reacted as expected. Results on target cell population are indicated in the following table: RESULTS: A NTIBODY / CLONE RESULT E-Cad (ECH-6) negative CK8 (05oqhcG65) positive CK5-6 (D5 AND 1684) negative Ki-67 (30-9) positive , low P53 (DO-7) negative MORPHOMETRIC ANALYSIS ER (clone 6F11) >95%, strong AZ (clone 16/1E2) 40% , weak to moderate [...] fo r all equivocal cases. Positivity/negativity for ER/AZ is reported if > or < 1% of the tumor cells are immuno- reactive, respectively. The ASCO/CAP criteria is used for scoring. Reference: Journal of Clinical Oncology, 2013; 31:8638-4560 AND 2009; 16:1583-2893. Duration of fixation: 33 Hrs; Sample Adequate: Yes. These assays have not been validated on decalcified tissues. Results should b einterpreted with caution given the likelihood of false negativity on decalcifiedspecimens. These tests were developed and their performance characteristics determined by [facility] L aboratory. They may not have been cleared or approved by the U.S. Food and Drug Administration. The FDA has determined that such clearance or approval is not necessary. INTERPRETATION: Right jennifer ast, mammotome biopsy: Invasive lobular carcinoma, nuclear grade 2. Positive for estrogen receptors (favorable prognostic indicator). Positive for progesterone receptors (favorable prognos tic indicator). Negative for overexpression of MGU0iuy. SJ:abena 01/17/17 PHYSICIAN AND INSTITUTION [facility] [address] [place], [place] [address] Signed __ Dario Bill 01/17/17 <signature on file> 72-Vqf-69338:30 CREATININE FINGERSTICK Comments: [facility] LaboratoryPoint of Olpq[address] [place] [address] EGFR WB > 60.0000 mL/min (Normal) CREATININE WB 0.7 mg/dL (Normal) Range: 0.55-1.02 21-Gwl-608372:12 MICROALBUMIN: CREATININE RATIO Comments: PATIENT NOT FASTINGPERFORMED BY: [employer] [facility] [id number] (33494) AND (66567) Alb/Creat Ratio 41.6 {mg/g_creat} (Abnormal) Range: 0.0-30.0 Albumin, Urine 26.1 ug/mL (Normal) Creatinine, Urine 62.7 mg/dL (Normal) 65-Uue-402524:12 URINALYSIS (87472) Comments: PATIENT NOT FASTINGPERFORMED BY: [employer] [facility] [id number]; patient was treated with Cipro Microscopic Examination See below: (Normal) Comments: Microscopic was indicated and was performed. Nitrite, Urine Positive (Abnormal) Urobilinogen,Semi-Qn 1.0 mg/dL (Normal) Range: 0.2-1.0 Bilirubin Negative (Normal) Occult Blood Trace (Abnormal) Ketones Negative (Normal) Glucose Negative (Normal) Protein Negative (Normal) WBC Esterase 3+ (Abnormal) Appearance Clear (Normal) Urine-Color Yellow (Normal) pH 6.5 (Normal) Range: 5.0-7.5 Specific Hurley 1.011 (Normal) Range: 1.005-1.030 05-Nie-571194:12 Metabolic Panel, Comprehensive Comments: PATIENT NOT FASTINGPERFORMED BY: [employer] Pflkop8295 [facility] [id number] (12581) ALT (SGPT) 16 [iU]/L (Normal) Range: 0-32 [...] 8-27 Glucose 94 mg/dL (Normal) Range: 65-99 74-Chv-960855:12 CBC WITH MANUAL DIFF Comments: PATIENT NOT FASTINGPERFORMED BY: LabCoSt. Joseph's Regional Medical CenterTlkztj9734 [facility] [id number] Information: NURSE DRAW (08673) Immature Grans (Abs) 0.0 {x10E3/uL} (Normal) Range: [...] 3.77-5.28 WBC 7.3 {x10E3/uL} (Normal) Range: 3.4-10.8 6-Sqf-161412:00 Pathology Report Comments: PERFORMED BY: KWCYT [facility] [place] Cyto Gdzfo82130 [facility] [id number] BY: [facility] Dermatopathology Metouod[address] [id number] Information: [id number] See MATER Comments: Material submitted: .RIGHT BOTTOM [...] F MALIGNANCY IN THESESECTIONS. CLINICOPATHOLOGIC CORRELATION IS RECOMMENDED./12/12/2016Electronically signed: .Erika Bright MD, DermatopathologistGross description: .RECEIVED IN FORMALIN LABELED PARUL HUNTLEY AND DESIGNATEDBIOPSY FOOT IS A 0.6 CM PU [facility] BIOPSY OF CORNIFIED SKIN HAVING ADERMIS OF 0.4 CM. ECCENTRICALLY LOCATED ON THE SKIN SURFACE IS A0.4 CM IN DIAMETER FIRM YELLOW SLIGHTLY RAISED AREA. THE DERMISIS MARKED WITH RED INK AND THE SPECIME N IS BISECTED AND SUBMITTEDIN TOTO IN ONE BLOCK.LIT/VINPathologist provided ICD-10:B07.9CPT .892011 3 COLON See Note Comments: [facility] [address] [facility] [place], [address] 1 BIOPS (Normal) Comments: Patient: PARUL HUNTLEY : 1950 (66/F) Acct Num: [id number] Phys: Junior Boyle Unit Num: [id number] Loc: LABSPEC Specimen: [id number] Received: 10/31/161606 Spec Ty - Y pe: [...] one cassette. / Ramonita 11/01/16 TC:1 CPT: 22708 HEADER u SE OPERATION: Colonoscopy with biopsies PRE-OP DIAGNOSIS: Screening TISSUE SUBMITTED: Right colon polyp biopsies - rule out adenoma MICROSCOPIC DESCRIPTION Slides are reviewed. MICROSCOPIC g SITE) DIAGNOSIS Right colon polyp, biopsy: Fragments of hyperplastic polyp. Ramonita 11/05/16 Signed Dario Bill 11/05/16 <signature on file> - 2 0 1 7 1 1 : 0 7 25-Qib-650942:08 CBC with auto diff (52060) Comments: PATIENT NOT FASTINGPERFORMED BY: [employer] [facility] [id number] Immature Grans (Abs) 0.0 {x10E3/uL} (Normal) Range: [...] 3.77-5.28 WBC 5.6 {x10E3/uL} (Normal) Range: 3.4-10.8 43-Mtz-664735:08 METABOLIC PANEL, COMPREHENSIVE Comments: PATIENT NOT FASTINGPERFORMED BY: [facility] [place] IMSDublin [place] [id number] (41076) ALT (SGPT) 13 [iU]/L (Normal) Range: 0-32 [...] Glucose, Serum 93 mg/dL (Normal) Range: 65-99 00-Iin-359596:08 CALCIFIDIOL (03681) VIT D 25 Comments: PATIENT NOT FASTINGPERFORMED BY: JAMIL LabCoSt. Joseph's Regional Medical CenterDkogru5471 [facility] [id number] Vitamin D, 25-Hydroxy 54.0 ng/mL (Normal) Range: 30.0-100.0 Comments: Vitamin D deficiency has been defined by the [place] of[place] and an Endocrine Society practice guideline as alevel of serum 25-OH vitamin D less than 20 ng/mL (1,2).The Endocrine Society went on to further define vitamin Dinsufficiency as a level between 21 and 29 ng/mL (2).1. IOM ([place] [employer]). 2010. Dietary reference intakes for calcium and D. [place]: The National Academies Press.2. Angelo MF, Chin HANSEN, Katy HERRERA, et al. Evaluation, treatment, and prevention of vitamin D deficiency: an Endocrine Society clinical practice guideline. JCEM. 2010; 96(7):1911-30. :45 Anti-TPO Antibody (83376) Comments: PATIENT NOT FASTINGPERFORMED BY: [employer] Pvqakz7370 [address] RoadDublin [place] [id number] Thyroid Peroxidase (TPO) Ab <6 {IU/mL} (Normal) Range: 0-34 :45 T3, FREE (TRIDOTHYRONINE) (69552) Comments: PATIENT NOT FASTINGPERFORMED BY: Sale[employer]rp Ybpiep2786 [address] RoadDublin [place] [id number] Triiodothyronine,Free,Serum 2.7 pg/mL (Normal) Range: 2.0-4.4 :45 T4, FREE (THYROXINE) (23373) Comments: PATIENT NOT FASTINGPERFORMED BY: [employer] LabPortfolioLauncher Inc.rp Xhvgxe4003 [address] RoadDublin [place] [id number] T4,Free(Direct) 1.22 ng/dL (Normal) Range: 0.82-1.77 :45 TSH (THYROID STIMULATING Comments: PATIENT NOT FASTINGPERFORMED BY: CB [facility] Eudnac1737 [address] RoadDublin [place] [id number]; fu 12-19 HORMONE) (86905) TSH 2.340 {uIU/mL} (Normal) Range: 0.450-4.500 :13 CALCIFIDIOL (62244) VIT D 25 Comments: PATIENT WAS FASTINGPERFORMED BY: [employer] [facility] Ekrjsy2654 [address] RoadDublin [place] [id number] Vitamin D, 25-Hydroxy 43.6 ng/mL (Normal) Range: 30.0-100.0 Comments: Vitamin D deficiency has been defined by the [place] of[place] and an Endocrine Society practice guideline as alevel of serum 25-OH vitamin D less than 20 ng/mL (1,2).The Endocrine Society went on to further define vitamin Dinsufficiency as a level between 21 and 29 ng/mL (2).1. IOM ([place] [employer]). 2010. Dietary reference intakes for calcium and D. [place]: The National Academies Press.2. Angelo MF, Chin NC, Katy HERRERA, et al. Evaluation, treatment, and prevention of vitamin D deficiency: an Endocrine Society clinical practice guideline. JCEM. 2010; 96(7):1911-30. :13 URINALYSIS (74070) Comments: PATIENT WAS FASTINGPERFORMED BY: [employer] [place] [id number] Microscopic Examination MICNIP (Normal) Comments: Microscopic not indicated and not performed. Nitrite, Urine Negative (Normal) Urobilinogen,Semi-Qn 0.2 mg/dL (Normal) Range: 0.2-1.0 Bilirubin Negative (Normal) Occult Blood Negative (Normal) Ketones Negative (Normal) Glucose Negative (Normal) Protein Negative (Normal) WBC Esterase Negative (Normal) Appearance Clear (Normal) Urine-Color Yellow (Normal) pH 7.0 (Normal) Range: 5.0-7.5 Specific Hurley 1.021 (Normal) Range: 1.005-1.030 :13 Metabolic Panel, Comprehensive Comments: PATIENT WAS FASTINGPERFORMED BY: Juxinli6370 Branch2[facility] [id number] (62951) ALT (SGPT) 23 [iU]/L (Normal) Range: 0-32 [...] mg/dL (Normal) Range: 65-99 :13 Lipid Panel (95445) Comments: PATIENT WAS FASTINGPERFORMED BY: SignatureAtrium [facility]us [id number] LDL/HDL Ratio 1.6 {ratio_units} (Normal) Range: 0.0-3.2 [...] MANUAL DIFF Comments: PATIENT WAS FASTINGPERFORMED BY: [employer] [facility] [id number] Information: [id number]; [address] (52975) Immature Grans (Abs) 0.0 {x10E3/uL} (Normal) Range: [...] CULTURE-KATHRYN COL Comments: PATIENT NOT FASTINGPERFORMED BY: LabCoSt. Joseph's Regional Medical CenterBrgrxc2508 [facility] [id number] Information: SRC:UR [id number] COUNT (43277) Result 1 NG36 (Normal) Comments: No growth in 36 - 48 hours. Urine Culture,Comprehensive Final report (Normal) 4-Osj-984066:50 Urinalysis, Office (73591) UA - LEUKOCYTE ESTERASE Small (Normal) UA - NITRITE Negative (Normal) URINE UROBILINGN KATHRYN TIMED Normal mg/dL (Normal) UA - PROTEIN Negative mg/dL (Normal) UA - PH 6 (Abnormal) UA - BLOOD Hemolyzed Trace (Normal) UA - SPECIFIC GRAVITY 1.020 (Normal) UA - KETONES Negative mg/dL (Normal) UA - BILIRUBIN Negative (Normal) UA - GLUCOSE Negative (Normal) 35-Zwg-514290:13 Miscellaneous Lab Procedure Comments: Results faxed on 11/22/14- 8731 by JODY .Comments: [id number] PAPTest(s) Ordered: [id number] PAPTest performed at:[facility] [address] [place], [place] [address] [facility] LAB TEST (Normal) Comments: Scanned image report available in EMR 67-Uli-952086:08 CBC With Differential/Platelet Comments: PATIENT WAS FASTINGPERFORMED BY: LabCoSt. Joseph's Regional Medical CenterQerwlk7165 [facility] [id number]; [facility] fu 10-20 will review with patient then Immature Grans [...] Panel (14) Comments: PATIENT WAS FASTINGPERFORMED BY: [employer]70 [address]2[facility] [id number] ALT (SGPT) 12 [iU]/L (Normal) Range: 0-32 [...] Glucose, Serum 84 mg/dL (Normal) Range: 65-99 73-Oiu-877809:08 Lipid Panel With LDL/HDL Comments: PATIENT WAS FASTINGPERFORMED BY: Juxinli6370 [address]2[facility] [id number] Ratio LDL/HDL Ratio 1.3 {ratio_units} Range: 0.0-3.2 [...] ng/mL (Normal) Comments: PATIENT WAS FASTINGPERFORMED BY: [employer]70 [address]2[facility] [id number] 11:08 Range: 30.0-100.0 Comments: Vitamin D deficiency has been defined by the [place] of[place] and an Endocrine Society practice guideline as alevel of serum 25-OH vitamin D less than 20 ng/mL (1,2).The Endocrine Society went on to further define vitamin Dinsufficiency as a level between 21 and 29 ng/mL (2).1. IOM ([place] [employer]). 2010. Dietary reference intakes for calcium and D. [place]: The National Academies Press.2. Angelo MF, Chin [place], Katy HERRERA, et al. Evaluation, treatment, and prevention of vitamin D deficiency: an Endocrine Society clinical practice guideline. JCEM. 2010; 96(7):1911-30. 76-Szx-47778:36 METABOLIC PANEL, COMPREHENSIVE Comments: PATIENT WAS FASTINGPERFORMED BY: [employer]CoSequence70 [employer] [facility] [id number] (45833) ALT (SGPT) 13 [iU]/L (Normal) Range: 0-32 [...] mg/dL (Normal) Range: 65-99 :36 LIPID PANEL (32306) Comments: PATIENT WAS FASTINGPERFORMED BY: [employer]70 [address]2[facility] [id number] LDL/HDL Ratio 1.2 {ratio_units} (Normal) Range: 0.0-3.2 [...] MANUAL DIFF Comments: PATIENT WAS FASTINGPERFORMED BY: Juxinli6370 [employer] [facility] [id number] Information: [id number] (87346) Immature Grans (Abs) 0.0 {x10E3/uL} (Normal) Range: [...] 3.77-5.28 WBC 4.8 {x10E3/uL} (Normal) Range: 3.4-10.8 98-Hvf-29117:36 CALCIFIDIOL (05516) VIT D 25 Comments: PATIENT WAS FASTINGPERFORMED BY: LabCoSt. Joseph's Regional Medical CenterGtryjv2565 [facility] [id number] Vitamin D, 25-Hydroxy 45.3 ng/mL (Normal) Range: 30.0-100.0 Comments: Vitamin D deficiency has been defined by the [place] of[place] and an Endocrine Society practice guideline as alevel of serum 25-OH vitamin D less than 20 ng/mL (1,2).The Endocrine Society went on to further define vitamin Dinsufficiency as a level between 21 and 29 ng/mL (2).1. IOM ([place] [employer]). 2010. Dietary reference intakes for calcium and D. [place]: The National Academies Press.2. Angelo MF, Chin NC, Katy HERRERA, et al. Evaluation, treatment, and prevention of vitamin D deficiency: an Endocrine Society clinical practice guideline. JCEM. 2010; 96(7):1911-30. 94-Ads-757642:06 URINE BOOGIE CULTURE-KATHRYN COL Comments: PATIENT NOT FASTINGPERFORMED BY: SignatureAt[facility] [id number] Information: SRC:UR [id number] COUNT (43753) Result 1 NG36 (Normal) Comments: No growth in 36 - 48 hours. Urine Culture,Comprehensive Final report (Normal) 62-Rrw-966121:05 Urinalysis, Office (43199) UA - BILIRUBIN Negative (Normal) UA - BLOOD Non Hemolyzed Trace (Normal) UA - GLUCOSE Negative (Normal) UA - KETONES Negative mg/dL (Normal) UA - LEUKOCYTE ESTERASE Negative (Normal) UA - NITRITE Negative (Normal) UA - PH 7.5 (Normal) UA - PROTEIN Trace mg/dL (Normal) UA - SPECIFIC GRAVITY 1.015 (Normal) URINE UROBILINGN KATHRYN TIMED 2 mg/dL (Normal) 43-Sou-35774:06 Metabolic Panel, Comments: PATIENT WAS FASTINGPERFORMED BY: [employer]70 [facility]illoSt[facility] [id number] Information: [id number] Comprehensive (44583) ALT (SGPT) 16 [iU]/L (Normal) Range: 0-32 [...] mg/dL (Normal) Range: 65-99 :06 Lipid Panel (72914) Comments: PATIENT WAS FASTINGPERFORMED BY: SignatureAtrium [facility]us [id number] LDL/HDL Ratio 1.2 {ratio_units} (Normal) Range: 0.0-3.2 LDL Cholesterol Calc 131 mg/dL (Abnormal) Range: 0-99 VLDL Cholesterol Esau 11 mg/dL (Normal) Range: 5-40 HDL Cholesterol 107 mg/dL (Normal) Comments: According to ATP-III Guidelines, HDL-C >59 mg/dL is considered anegative risk factor for CHD. Cholesterol, Total 249 mg/dL (Abnormal) Range: 100-199 Triglycerides 57 mg/dL (Normal) Range: 0-149 :06 Homocysteine, Plasma (20586) Comments: PATIENT WAS FASTINGPERFORMED BY: SignatureAt[facility] [id number] Homocyst(e)ine, Plasma 7.4 umol/L (Normal) Range: 0.0-15.0 :06 CALCIFIDIOL (55881) VIT D 25 Comments: PATIENT WAS FASTINGPERFORMED BY: [facility] CSHubBeaumont Hospital6370 [facility] [id number] Vitamin D, 25-Hydroxy 24.9 ng/mL (Abnormal) Range: 30.0-100.0 Comments: Vitamin D deficiency has been defined by the [place] of[place]icine and an Endocrine Society practice guideline as alevel of serum 25-OH vitamin D less than 20 ng/mL (1,2).The Endocrine Society went on to further define vitamin Dinsufficiency as a level between 21 and 29 ng/mL (2).1. IOM ([place] [employer] [employer]). 2010. Dietary reference intakes for calcium and D. [place]: The National Academies Press.2. Angelo MF, Chin HANSEN, Katy HERRERA, et al. Evaluation, treatment, and prevention of vitamin D deficiency: an Endocrine Society clinical practice guideline. JCEM. 2010; 96(7):1911-30. 03-Eiq-518718:00 Microscopic Examination Comments: PATIENT WAS FASTINGPERFORMED BY: LabBeaumont Hospital6370 [facility] [id number] Bacteria Few (Normal) Mucus Threads Present (Normal) Epithelial Cells (non renal) >10 {/hpf} (Abnormal) Range: 0 - 10 RBC 0-3 {/hpf} (Normal) Range: 0 - 3 WBC 11-30 {/hpf} (Abnormal) Range: 0 - 5 65-Iph-51405:51 BILAT SCRN DIGITAL & CAD Radiology Report [...] Walton D.O.August 20, 2011 at 2:53:02 PM [phone] Signed BB/BB If you are the refe rring physician and would like to consult with theradiologist who provided this interpretation, please contact Ye Jarvis at . If this radiologist is unavailable, youwill be direc huong to another radiologist to assist. If you are a patient with a question regarding this report, pleasecontactyour referring physician directly. Professional Interpretation Provided By: [facility] , Dictated on 08/20/11 1024 by Rajat Walton DOTranscribed on 08/20/112053 by ITS IMPORTSign by Rajat Walton DO on 08/20/112054 Sign by: Rajat Walton DO 49-Une-77738:51 DEXA BONE DENSITY STUDY (HP) Radiology Report [...] D.O.August 22, 2011 at 12:09: 10 PM [phone] Signed BB/BB If you are the referring physician and would like to consult with theradiologist who provided this interpretation, please contact Ye Jarvis a t . If this radiologist is unavailable, youwill be directed to another radiologist to assist. If you are a patient with a question regarding this report, pleasecontactyour referring physic shaun directly. Professional Interpretation Provided By: [employer], Phone , Dictated on 08/20/11 0957 by Rajat Walton DOTranscribed on 08/22/11 1501 by ITS IMPORTSign by Rajat Walton DO on 08/22/11 1502 Sign by: Rajat Walton DO 64-Yee-839679:19 Renal function Panel Comments: PATIENT NOT FASTINGPERFORMED BY: LabBeaum[facility] Hospital6370 [facility] [id number] Information: [id number] (44349) Albumin, Serum 4.4 g/dL (Normal) Range: 3.5-5.5 [...] Glucose, Serum 84 mg/dL (Normal) Range: 65-99 34-Jqd-444273:00 URINALYSIS, W/ MICRO (92969) Comments: PATIENT WAS FASTINGPERFORMED BY: LabCoSt. Joseph's Regional Medical CenterYlgtko9487 [facility] [id number] Microscopic Examination See below: (Normal) Nitrite, Urine Negative (Normal) Urobilinogen,Semi-Qn 0.2 mg/dL (Normal) Range: 0.0-1.9 Bilirubin Negative (Normal) Occult Blood Negative (Normal) Ketones Negative (Normal) Glucose Negative (Normal) Protein Negative (Normal) WBC Esterase 2+ (Abnormal) Appearance Clear (Normal) Urine-Color Yellow (Normal) pH 7.0 (Normal) Range: 5.0-7.5 Specific Hurley 1.012 (Normal) Range: 1.005-1.030 32-Wwb-584122:00 METABOLIC PANEL, COMPREHENSIVE Comments: PATIENT WAS FASTINGPERFORMED BY: [employer]70 [facility] [id number] ([id number]) ALT (SGPT) 17 [iU]/L (Normal) Range: 0-40 [...] Glucose, Serum 89 mg/dL (Normal) Range: 65-99 68-Tzt-820729:00 LIPID PANEL (89390) Comments: PATIENT WAS FASTINGPERFORMED BY: Bitdeli Heqfco1864 [facility] [id number] LDL/HDL Ratio 1.3 {ratio_units} (Normal) Range: 0.0-3.2 LDL Cholesterol Calc 120 mg/dL (Abnormal) Range: 0-99 VLDL Cholesterol Esau 20 mg/dL (Normal) Range: 5-40 HDL Cholesterol 92 mg/dL (Normal) Comments: According to ATP-III Guidelines, HDL-C >59 mg/dL is considered anegative risk factor for CHD. Triglycerides 100 mg/dL (Normal) Range: 0-149 Cholesterol, Total 232 mg/dL (Abnormal) Range: 100-199 68-Cbc-856970:00 CBC WITH MANUAL DIFF Comments: PATIENT WAS FASTINGPERFORMED BY: LabCoSt. Joseph's Regional Medical CenterZsmxgi0411 [facility] [id number] Information: [id number] (67389) Immature Grans (Abs) 0.0 {x10E3/uL} (Normal) Range: [...] Microscopic Examination Comments: PATIENT WAS FASTINGPERFORMED BY: SignatureAt[facility] [id number] Bacteria Few (Normal) Mucus Threads Present (Normal) Epithelial Cells (non renal) >10 {/hpf} (Abnormal) Range: 0 - 10 RBC 0-3 {/hpf} (Normal) Range: 0 - 3 WBC 0-5 {/hpf} (Normal) Range: 0 - 5 :35 URINALYSIS, W/ MICRO (76698) Comments: PATIENT WAS FASTINGPERFORMED BY: SignatureAt[facility] [id number] Microscopic Examination See below: (Normal) Microscopic Examination MICRON (Normal) Comments: Microscopic follows if indicated. Nitrite, Urine Negative (Normal) Urobilinogen,Semi-Qn 0.2 mg/dL (Normal) Range: 0.0-1.9 Bilirubin Negative (Normal) Occult Blood Negative (Normal) Ketones Negative (Normal) Glucose Negative (Normal) Protein Trace (Normal) WBC Esterase Negative (Normal) Appearance Clear (Normal) Urine-Color Yellow (Normal) pH 7.5 (Normal) Range: 5.0-7.5 Specific Hurley 1.021 (Normal) Range: 1.005-1.030 :35 METABOLIC PANEL, COMPREHENSIVE Comments: PATIENT WAS FASTINGPERFORMED BY: [facility]At[facility] [id number] (53745) ALT (SGPT) 21 [iU]/L (Normal) Range: 0-40 [...] mg/dL (Normal) Range: 65-99 :35 LIPID PANEL (17924) Comments: PATIENT WAS FASTINGPERFORMED BY: Snabboteket [facility] HospitalPanèveAtrium Health Cabarrus [id number] LDL/HDL Ratio 1.3 {ratio_units} (Normal) Range: 0.0-3.2 [...] MANUAL DIFF Comments: PATIENT WAS FASTINGPERFORMED BY: Bicon Pharmaceuticalmd [place] [id number] Information: [id number] (80364) Immature Grans (Abs) 0.0 {x10E3/uL} (Normal) Range: [...] {x10E3/uL} (Normal) Range: 4.0-10.5 :42 Urinalysis, Office (42800) UA - BILIRUBIN Negative (Normal) UA - BLOOD Hemolyzed Trace (Normal) UA - GLUCOSE Negative (Normal) UA - KETONES Negative mg/dL (Normal) UA - LEUKOCYTE ESTERASE Negative (Normal) UA - NITRITE Negative (Normal) UA - PH 7.0 (Normal) UA - PROTEIN Negative mg/dL (Normal) UA - SPECIFIC GRAVITY 1.015 (Normal) URINE UROBILINGN KATHRYN TIMED 2 mg/dL (Normal) 91-Pli-258027:01 BILAT SCRN DIGITAL & CAD Radiology Report [...] 08/15/10 1103 Sign by: Justice Gerardo MD 7-Ibe-890762:49 MYOCARD PERF STRESS/REST MULT Radiology Report See Note (Normal) Comments: EXERCISE MYOCARDIAL PERFUSION SCAN A 60-year-old lady with a history of atypical chest pain. EQBHDLIDF05.0 mCi of Sestamibi was injected at rest. [...] ejection fraction. Dictated on 08/06/10 1029 by Jaiden Drake MDrilTranscribed on 08/06/10 1249 by MARVEL DEMPSEYSign by Johann Drake MD on 08/06/10 9814 Sign by: Johann Drake MD :16 HEPATIC FUNCTION PANEL Comments: PATIENT WAS FASTINGPERFORMED BY: Juxinli6370 [facility] [id number] Information: [id number] (48628) ALT (SGPT) 22 [iU]/L (Normal) Range: 0-40 AST (SGOT) 21 [iU]/L (Normal) Range: 0-40 Alkaline Phosphatase, S 75 [iU]/L (Normal) Range: 25-150 Bilirubin, Direct 0.13 mg/dL (Normal) Range: 0.00-0.40 Bilirubin, Total 0.4 mg/dL (Normal) Range: 0.0-1.2 Albumin, Serum 4.2 g/dL (Normal) Range: 3.5-5.5 Protein, Total, Serum 6.5 g/dL (Normal) Range: 6.0-8.5 :16 Lipid Panel (39035) Comments: PATIENT WAS FASTINGPERFORMED BY: [employer]70 Branch2[facility] [id number] LDL/HDL Ratio 1.4 {ratio_units} (Normal) Range: 0.0-3.2 [...] HIGH SENS(hsCRP) Comments: PATIENT WAS FASTINGPERFORMED BY: Juxinli6370 [facility]illoSt[facility] [id number] (85620) C-Reactive Protein, Cardiac 12.60 mg/L (Abnormal) Range: 0.00-3.00 Comments: Relative Risk for Future Cardiovascular Event Low <1.00 Average 1.00 - 3.00 High >3.00 :16 Homocysteine, Plasma (56768) Comments: PATIENT WAS FASTINGPERFORMED BY: Juxinli6370 [facility] [id number] Homocyst(e)ine, Plasma 7.8 umol/L (Normal) Range: 0.0-15.0 08-Hno-072196:35 URINE BOOGIE CULTURE-KATHRYN COL Comments: PATIENT NOT FASTINGPERFORMED BY: Quincuslin6370 [facility] [id number] Information: SRC: [id number] COUNT (05773) Result 1 VIRIST (Normal) Comments: Viridans streptococcus group1,000 Colonies/mLSusceptibility not normally performed on this organism. Urine Final report (Normal) Culture,Comprehensive 90-Zlb-225571:30 ABDOMEN/PELVIS WITH CONTRAST Radiology Report See Note [...] on 03/15/10 1412 Sign by: Justice Gerardo 2-Onl-119613:27 Thin prep Pap Comments: Source.............Cervical;EndocervicalNo. of containers..01 CYTYC Thin Prep VialPATIENT NOT FASTINGPERFORMED BY: Lab[address] [id number] Information: [id number] ([id number]) Note: PAPSMR (Normal) Comments: The Pap smear [...] present.V70.0 ; Routine general me dical examin [facility] [place] Operations Forester (ASCP) 8-Uno-573257:12 Urinalysis, Office (52409) UA - LEUKOCYTE ESTERASE Negative (Normal) UA - NITRITE Negative (Normal) URINE UROBILINGN KATHRYN TIMED Normal mg/dL (Normal) UA - PROTEIN Negative mg/dL (Normal) UA - PH 7.5 (Normal) UA - BLOOD Hemolyzed Trace (Normal) UA - SPECIFIC GRAVITY 1.015 (Normal) UA - KETONES Negative mg/dL (Normal) UA - BILIRUBIN Negative (Normal) UA - GLUCOSE Negative (Normal) 32-Sly-786520:56 BILAT SCRN DIGITAL & CAD Radiology Report See Note (Normal) Comments: Exam Number: [id number] MAMMOGRAPHY - BILATERAL SCREENING INDICATION:Routine annual screening [...] of attaching a ResultCode to this exam.ADDENDUM: [id number] HPBI/MDS Reported By: JUSTICE GERARDO 27-Jul-2009 C-Reactive Protein, 9.8 mg/L Comments: PATIENT WAS FASTINGPERFORMED BY: JAMIL Floqq Avktyi2209 [facility] [id number] 9:00 Quant (Abnormal) Range: 0.0-4.9 42-Kvv-26005:00 CBC With Differential/Platelet Comments: PATIENT WAS FASTINGPERFORMED BY: TheCommentorlin6370 [facility] [id number] Baso (Absolute) 0.0 {x10E3/uL} (Normal) Range: 0.0-0.2 [...] 3.80-5.10 WBC 4.2 {x10E3/uL} (Normal) Range: 4.0-10.5 21-Zvn-61509:00 Comp. Metabolic Panel (14) Comments: PATIENT WAS FASTINGPERFORMED BY: FloqqSt. Joseph's Regional Medical CenterYvrflq3177 [facility] [id number] A/G Ratio 1.9 (Normal) Range: 1.1-2.5 Alkaline [...] Glucose, Serum 88 mg/dL (Normal) Range: 65-99 00-Rmn-56772:00 Lipid Panel With LDL/HDL Comments: PATIENT WAS FASTINGPERFORMED BY: LabSaint [facility] Wnabjk2770 [facility] [id number] Ratio HDL Cholesterol 112 mg/dL (Normal) Comments: [...] COMMNT (Normal) Comments: PATIENT WAS FASTINGPERFORMED BY: [facility]6370 [facility] [id number] :00 Comments: Test not indicated.IF TESTING IS REQUESTED ON URINE CULTURE TUBE PLEASE CONTACTLAB WITHIN 3 DAYS.A urine culture transport was received with no test indicated. Iftesting is required on this specimen, pl ease contact the [facility] Inquiry/Technical Services Department to obtain a Request forWritten Authorization Form. :00 Urinalysis, Routine Comments: PATIENT WAS FASTINGPERFORMED BY: [facility]6370 [facility] [id number] Microscopic Examination MICRON (Normal) Comments: Microscopic follows if indicated. Bilirubin Negative (Normal) Nitrite, Urine Negative (Normal) Occult Blood Negative (Normal) Urobilinogen,Semi-Qn 0.2 mg/dL (Normal) Range: 0.0-1.9 Glucose Negative (Normal) Ketones Negative (Normal) Protein Negative (Normal) Appearance Clear (Normal) pH 7.5 (Normal) Range: 5.0-7.5 Urine-Color Yellow (Normal) WBC Esterase Negative (Normal) Specific Hurley 1.011 (Normal) Range: 1.005-1.030 Vitamin D, 25-Hydroxy 39.3 ng/mL (Normal) Comments: PATIENT WAS FASTINGPERFORMED BY: [facility]6370 [facility] [id number] :00 Range: 32.0-100.0 Comments: Recent studies consider the lower limit of 32.0 ng/mL to be athreshold for optimal health.Mike ESCOBAR. J Nutr. 2004;135(2):317-22. :47 Urinalysis, Office (34341) UA - LEUKOCYTE ESTERASE Negative (Normal) UA - NITRITE Positive (Normal) URINE UROBILINGN KATHRYN TIMED 2 mg/dL (Normal) UA - PROTEIN Negative mg/dL (Normal) UA - PH 6.5 (Normal) UA - BLOOD Hemolyzed Trace (Normal) UA - SPECIFIC GRAVITY 1.015 (Normal) UA - KETONES Negative mg/dL (Normal) UA - BILIRUBIN Negative (Normal) UA - GLUCOSE Negative (Normal) 9-Xcr-582375:51 URINE BOOGIE CULTURE-KATHRYN COL Comments: PATIENT NOT FASTINGPERFORMED BY: FloqqSt. Joseph's Regional Medical CenterAuwmzw8183 [facility] [id number] Information: SRC:UR [id number] COUNT (26314) Antimicrobial MIHEAD (Normal) Comments: S = Susceptible; [...] mL (Normal) Urine Final report (Normal) Culture,Comprehensive 3-Zrm-131032:36 Urinalysis, Office (01704) UA - LEUKOCYTE ESTERASE Moderate (Normal) UA - NITRITE Negative (Normal) URINE UROBILINGN KATHRYN TIMED Normal mg/dL (Normal) UA - PROTEIN Negative mg/dL (Normal) UA - PH 6.0 (Normal) UA - BLOOD Hemolyzed Moderate (Normal) UA - SPECIFIC GRAVITY 1.010 (Normal) UA - KETONES Negative mg/dL (Normal) UA - BILIRUBIN Negative (Normal) UA - GLUCOSE Negative (Normal) 96-Tsw-16516:19 URINE BOOGIE CULTURE-KATHRYN COL Comments: PATIENT NOT FASTINGClinical Information: SRC:UR [id number] PERFORMED BY: [facility]6370 [facility] [id number] COUNT (77130) Result 1 Lactobacillus species Comments: 50,000-100,000 colony forming units per mL (Normal) Urine Final report (Normal) Culture,Comprehensive 10-Ojp-312352:56 Urinalysis, Office (91631) UA - BILIRUBIN Small (Normal) UA - [...] Report See Note (Normal) Comments: Exam Number: [id number] CLINICAL:Shortness of breath and back pain. CTA [...] 25-Hydroxy 49.7 ng/mL (Normal) Comments: PERFORMED BY: [facility]6370 [facility] [id number] :01 Range: 32.0-100.0 Comments: Recent studies consider the lower limit of 32.0 ng/mL to be athreshold for optimal health.[facility]. J Nutr. 2004;135(2):317-22. 5-Geh-265941:14 CALCIFIDIOL (05238) VIT D 25 Comments: PATIENT WAS FASTINGClinical Information: ADD [id number],[id number] PERFORMED BY: Juxinli6370 [address] RoadDublin [place] [id number] Vitamin D, 25-Hydroxy 39.1 ng/mL (Normal) Range: 32.0-100.0 Comments: Recent studies consider the lower limit of 32.0 ng/mL to be athreshold for optimal health.[facility]. J Nutr. 2004;135(2):317-22. 3-Vcj-773510:14 CALCIUM SERUM (11026) Comments: PATIENT WAS FASTINGPERFORMED BY: Juxinli6[address] [place] [id number] Calcium, Serum 9.5 mg/dL (Normal) Range: 8.5-10.6 0-Lhq-208121:14 PARATHORMONE (31292) Comments: PATIENT WAS FASTINGPERFORMED BY: [employer] Wjsrma76[address] PinMyPetblin [place] [id number] PTH, Intact 28 pg/mL (Normal) Range: 15-65 61-Amu-29748:28 BONE SCAN WHOLE BODY Radiology Report See Note (Normal) Comments: Exam Number: [id number] CLINICAL DATAAbnormal lesion at the left iliac [...] Report See Note (Normal) Comments: Exam Number: [id number] CLINICAL DATAAbnormal lesion left iliac area seen [...] mg/dL (Normal) Range: 5-40 :33 VIT D,25 80459 25.8 ng/mL (Abnormal) Range: 32.0-100.0 Comments: Recent studies consider the lower limit of 32.0 ng/mL to mela threshold for optimal health.Mike ESCOBAR. J Nutr. 2004;135(2):317-22.Performed At: [address]Dublin, [place] [id number] 89-Iiw-457867:49 Urinalysis, Office (18907) UA - BILIRUBIN Negative (Normal) UA - BLOOD Hemolyzed Trace (Normal) UA - GLUCOSE Negative (Normal) UA - KETONES Negative mg/dL (Normal) UA - LEUKOCYTE ESTERASE Negative (Normal) Comments: aw UA - NITRITE Negative (Normal) UA - PH 6.0 (Normal) UA - PROTEIN Negative mg/dL (Normal) UA - SPECIFIC GRAVITY 1.010 (Normal) URINE UROBILINGN KATHRYN TIMED Normal mg/dL (Normal) 4-Iex-614449:41 POST VOID RESIDUAL BLADDER Radiology Report See Note (Normal) Comments: Exam Number: [id number] ULTRASOUND OF THE KIDNEYS/POST VOID RESIDUAL URINARY [...] Urinary bladder demonstrates a postvoid residual of neeolyttdhuij54 cc. Reported By: JOANNE STORY M.D. 02-Feb-20088:21 KIDNEY Radiology Report See Note (Normal) Comments: Exam Number: [id number] ULTRASOUND OF THE KIDNEYS/POST VOID RESIDUAL URINARY [...] Urinary bladder demonstrates a postvoid residual of qftjmaynmnnlh27 cc. Reported By: JOANNE STORY M.D. 01-Feb-20088:49 Urinalysis, Office (60462) UA - BILIRUBIN Negative (Normal) UA - BLOOD Hemolyzed Trace (Normal) UA - GLUCOSE Negative (Normal) UA - KETONES Negative mg/dL (Normal) UA - LEUKOCYTE ESTERASE Trace (Normal) UA - NITRITE Negative (Normal) UA - PH 7.0 (Normal) UA - PROTEIN Negative mg/dL (Normal) UA - SPECIFIC GRAVITY 1.010 (Normal) URINE UROBILINGN KATHRYN TIMED Normal mg/dL (Normal) :45 Urinalysis, Office (83924) UA - BILIRUBIN Negative (Normal) UA - BLOOD Non Hemolyzed Trace (Normal) UA - GLUCOSE Negative (Normal) UA - KETONES Negative mg/dL (Normal) UA - LEUKOCYTE ESTERASE Negative (Normal) UA - NITRITE Negative (Normal) UA - PH 6.5 (Normal) UA - PROTEIN Negative mg/dL (Normal) UA - SPECIFIC GRAVITY 1.000 (Normal) URINE UROBILINGN KATHRYN TIMED Normal mg/dL (Normal) 4-Ifz-489822:50 Urinalysis, Office (95901) UA - BILIRUBIN Negative (Normal) UA - BLOOD Hemolyzed Trace (Normal) UA - GLUCOSE Negative (Normal) UA - KETONES Negative mg/dL (Normal) UA - LEUKOCYTE ESTERASE Negative (Normal) UA - NITRITE Negative (Normal) UA - PH 7.0 (Normal) UA - PROTEIN Negative mg/dL (Normal) UA - SPECIFIC GRAVITY 1.000 (Normal) URINE UROBILINGN KATHRYN TIMED Normal mg/dL (Normal) 45-Ljf-207673:48 ELBOW,MIN 3 VIEWS Radiology Report See Note (Normal) Comments: Exam Number: [id number] RIGHT ELBOW 3 VIEWS CLINICAL STATEMENTFell off couch, pain. There is no fracture visible. Joint spaces are maintained with normalalignment. Fat pads are visible ante riorly but n ot elevatedposteriorly. IMPRESSIONNormal study. Reported By: ETHEL MONDRAGON M.D. :47 FOREARM,2 VIEWS Radiology Report See Note (Normal) Comments: Exam Number: [id number] RIGHT FOREARM - 2 VIEWS. CLINICAL STATEMENTPain. Fell off couch. FINDINGSRoutine views show no fracture, dislocation, joint abnormality, orsoft tissue calcification. IMPRESSIONNo rmal examination of the right forearm. Reported By: ETHEL MONDRAGON M.D. :47 WRIST,MIN 3 VIEWS Radiology Report See Note (Normal) Comments: Exam Number: [id number] RIGHT WRIST - 3 VIEWS. CLINICAL STATEMENTPain. Fell off cough. FINDINGSThere is no fracture. Joint spaces are maintained and normallyaligned. No erosion or soft tissue calcific ation is evident. IMPRESSIONNormal study. Reported By: ETHEL MONDRAGON M.D. :02 Thin prep Pap (89325) Comments: LMP / Prev Treat...SNO=008935Gp. of containers..01 CYTYC Thin Prep VialPATIENT NOT FASTINGClinical Information: [id number] PERFORMED BY: Lab[address] A [facility] [id number] . . (Normal) DIAGNOSIS: SPRCS (Normal) Comments: NEGATIVE FOR INTRAEPITHELIAL LESION AND MALIGNANCY.Satisfactory for evaluation. Endocervical and/or squamous metaplasticcells (endocervical component) are present.V72.31 ; Routine gynecolog ical examina Hermes Hernandez, Supervisory Operations Forester (ASCP) Note: PAPSMR (Normal) Comments: The Pap [...] Report See Note (Normal) Comments: Exam Number: [id number] BILATERAL SCREENING DIGITAL MAMMOGRAM CLINICAL INFORMATIONScreening. Bilateral [...] The mammogramswere also examined with computer-aided detection software(Applyful.). Reported By: JOANNE STORY M.D. 0-Anl-827590:06 Urine Culture,Comprehensive Comments: Clinical Information: SRC:UR PERFORMED BY: PropertybaseFormer[facility] [id number] Result 1 MUG (Normal) Comments: Mixed urogenital xaiml578 Colonies/mL Urine Culture,Comprehensive Final report (Normal) 03-Jul-20078:43 Microscopic Examination Comments: PATIENT WAS FASTINGPERFORMED BY: Juxinli6370 [place] NativeADFormerly [facility] [id number] Bacteria None seen (Normal) Crystal Type Amorphous Sediment (Normal) Crystals Present (Abnormal) Epithelial Cells (non renal) 0-10 {/hpf} (Normal) Range: 0 - 10 Mucus Threads Present (Abnormal) RBC 0-3 {/hpf} (Normal) Range: 0 - 3 WBC 11-30 {/hpf} (Abnormal) Range: 0 - 5 03-Jul-20078:43 Urinalysis, Routine Comments: PATIENT WAS FASTINGPERFORMED BY: [employer]70 [employer] CREFormerly [facility] [id number] Appearance Clear (Normal) Bilirubin Negative (Normal) Glucose Negative (Normal) Ketones Negative (Normal) Microscopic Examination See below: (Normal) Nitrite, Urine Negative (Normal) Occult Blood Negative (Normal) pH 7.0 (Normal) Range: 5.0-7.5 Protein Trace (Normal) Specific Hurley 1.025 (Normal) Range: 1.005-1.030 Urine-Color Yellow (Normal) Urobilinogen,Semi-Qn 0.2 mg/dL (Normal) Range: 0.0-1.9 WBC Esterase 1+ (Abnormal) :43 CBC (Auto) (96168) Comments: PATIENT WAS FASTINGPERFORMED BY: SaleStreamSt. Joseph's Regional Medical CenterNybppw4514 [facility] [id number] Hematocrit 40.9 % (Normal) Range: 34.0-44.0 Hemoglobin 13.8 g/dL (Normal) Range: 11.5-15.0 MCH 30.1 pg (Normal) Range: 27.0-34.0 MCHC 33.6 g/dL (Normal) Range: 32.0-36.0 MCV 90 fL (Normal) Range: 80-98 Platelets 313 {x10E3/uL} (Normal) Range: 140-415 RBC 4.57 {x10E6/uL} (Normal) Range: 3.80-5.10 RDW 14.2 % (Normal) Range: 11.7-15.0 WBC 5.2 {x10E3/uL} (Normal) Range: 4.0-10.5 :43 Metabolic Panel, Comprehensive Comments: PATIENT WAS FASTINGPERFORMED BY: SaleStreamSt. Joseph's Regional Medical CenterDewlpo9099 [facility] [id number] (57200) A/G Ratio 1.7 (Normal) Range: 1.1-2.5 Albumin, [...] Serum 75 mg/dL (Normal) Range: 65-99 If -Luxembourger >60 mL/min (Normal) Range: 60-128 Comments: Note: [...] mmol/L (Normal) Range: 135-145 :43 Lipid Panel (28480) Comments: PATIENT WAS FASTINGPERFORMED BY: LabCoSt. Joseph's Regional Medical CenterLtjqpe6759 [facility] [id number] Cholesterol, Total 245 mg/dL (Abnormal) Range: 100-199 Comment [facility] (Normal) Comments: If initial LDL-cholesterol result is >100 mg/dL, assess forrisk factors. HDL Cholesterol 99 mg/dL (Abnormal) Range: 40-59 Comments: HDL cholesterol values >59 mg/dL are associated with reduced cardiacrisk. LDL Cholesterol Calc 133 mg/dL (Abnormal) Range: 0-99 LDL/HDL Ratio 1.3 {ratio_units} (Normal) Range: 0.0-3.2 Triglycerides 66 mg/dL (Normal) Range: 0-149 VLDL Cholesterol Esau 13 mg/dL (Normal) Range: 5-40 01-Yoj-824573:47 Urinalysis, Office (98542) UA - BILIRUBIN Negative (Normal) UA - BLOOD Non Hemolyzed Trace (Normal) UA - GLUCOSE Negative (Normal) UA - KETONES Negative mg/dL (Normal) UA - LEUKOCYTE ESTERASE Negative (Normal) Comments: aw UA - NITRITE Negative (Normal) UA - PH 7.0 (Normal) UA - PROTEIN Negative mg/dL (Normal) UA - SPECIFIC GRAVITY 1.005 (Normal) URINE UROBILINGN KATHRYN TIMED Normal mg/dL (Normal) 84-Chz-020757:02 Urinalysis, Office (18602) UA - BILIRUBIN Negative (Normal) UA - BLOOD Non Hemolyzed Trace (Normal) UA - GLUCOSE Negative (Normal) UA - KETONES Negative mg/dL (Normal) UA - LEUKOCYTE ESTERASE Moderate (Normal) UA - NITRITE Negative (Normal) UA - PH 6.0 (Normal) UA - PROTEIN Negative mg/dL (Normal) UA - SPECIFIC GRAVITY 1.010 (Normal) URINE UROBILINGN KATHRYN TIMED 2 mg/dL (Normal) :45 Urinalysis, Office (34763) UA - BILIRUBIN Negative (Normal) UA - [...] ORDER RECEIVED ON FAX MACHINE 10/15/06 @ 4426 JUST PRIOR TOURINES FROM 10/14/06 BEING DISCARDED. [...] Report See Note (Normal) Comments: Exam Number: [id number] 4 VIEWS OF THE RIGHT KNEE AP, [...] Report See Note (Normal) Comments: Exam Number: [id number] 4 VIEWS OF THE RIGHT KNEE AP, [...] mg/dL VLDL 6 mg/dL (Normal) Range: 5-40 16-Fpr-034288:27 C-REACTIVE PROT 16.90 mg/L (Abnormal) Range: 0.0-6.0 Comments: Test performed using the Dimension C-Reactive ProteinExtended Range assay method. This assay meets the AHA/CDC 2003 recommendations fordetermining patients at high risk for cardiovasculardisease. Reference: High risk CRP >3.0 mg/L 35-Eim-216251:27 CBCD,SMEAR DIFF BASOPHIL 1 % (Normal) Range: [...] 47-70 WBC 4.6 K/mm3 (Normal) Range: 4.4-11.0 13-Oii-243960:27 ESR SED RATE 7 mm/h (Normal) Range: [...] (I)) Planned Observations CBC with auto diff (08150)Indication: Benign essential hypertension On: 92-Cpf-619850:28 Request METABOLIC PANEL, COMPREHENSIVE (17325)Indication: Benign essential hypertension On: 03-Yom-176716:28 Request Thin Prep Pap (69668)Indication: Screening for cervical cancer On: 97-Erz-009857:00 Request Renal function Panel (15840)Indication: Benign essential hypertension On: 8-Nzr-017651:12 Request Thin Prep Pap (63231)Indication: Screening for cervical cancer On: 44-Suv-03843:03 Request Thin Prep Pap (55820)Indication: Well woman exam On: 95-Mkn-04435:51 Request CALCIFIDIOL (44811) VIT D 25Indication: Vitamin D deficiency, unspecified On: :28 Request METABOLIC PANEL, COMPREHENSIVE (87159)Indication: Benign essential hypertension On: :28 Request LIPID PANEL (35911)Indication: Benign essential hypertension On: :28 Request CBC W/AUTO DIFF WBC (55768)Indication: Benign essential hypertension On: :28 Request Urinalysis, Office (71381)Indication: Dysuria On: 77-Nbm-127126:27 Request CBC (Auto) (28625)Indication: Elevated blood-pressure reading without diagnosis of hypertension On: 9-Sva-104122:23 Request CALCIFIDIOL (48363) VIT D 25 On: 6-Qnh-718295:23 Request Lipid Panel (88028)Indication: Elevated blood-pressure reading without diagnosis of hypertension On: 5-Dup-321840:23 Request Metabolic Panel, Comprehensive (80332)Indication: Elevated blood-pressure reading without diagnosis of hypertension On: 5-Nrc-309612:23 Request URINALYSIS W MICROSCOPY (96148)Indication: Dysuria On: 3-Syi-237430:50 Request URINALYSIS (75399)Indication: Hypercholesterolemia On: 2-Zse-667016:21 Request Metabolic Panel, Comprehensive (39513)Indication: Hypercholesterolemia On: :47 Request Lipid Panel (00341)Indication: Hypercholesterolemia On: :47 Request Planned Encounters Medical; [facility] 3 Month FU - On: 26-Mar-2018 10:00 [facility] Mónica Petty MD, MD, Dana M Planned Procedures MAMMOGRAM BREAST LEFT DIAGNOSTIC On: 11-Nov-2017 Intent (80762)By: Mónica Petty MD, MD, Dana M LEFT BREAST ULTRASOUND (75104)By: On: 11-Nov-2017 Intent Mónica Petty MD, MD, Dana M Pap Smear, Medicare (Q0091)By: On: 27-Oct-2017 Intent Mónica Petty MD, MD, Dana M ELECTROCARDIOGRAM, COMPLETE (ECG) On: 22-Oct-2016 Intent (17611)By: Mónica Petty MD Comments: see scanned document of test done to see results reviewed today with patient Mónica HORNER SCREENING DIGITAL TOMOSYNTHESIS OF On: 23-Sep-2016 Intent BREAST ([id number])By: Mónica Petty MD, MD, Dana M [place] ([id number])By: Jovanny On: 26-Dec-2015 Mónica Corona MD, MD, Dana M Comments: Lot:[id number]:12/04/16Dose:1mLRoute:sub q Site:r armGiven By:KATHRINE signed TD VACCINE ADULT ([id number])By: Jovanny On: 26-Dec-2015 Mónica Corona MD, MD, Dana M TDAP VACCINE >7 IM ([id number])By: Jovanny On: 26-Dec-2015 Mónica Corona MD, MD, Dana M Comments: Lot:[id number]:04/13/18Dose:0.5mgRoute:imSite:r arm Given By:KATHRINE signed BILATERAL MAMMOGRAMS ([id number])By: On: 05-Dec-2015 Mónica Mark MD, MD, Dana M MAMMOGRAM, SCREENING, BOTH BREAST On: 20-Oct-2014 Intent ([id number])By: Mónica Petty MD, MD, Dana M Radiology - Knee - LeftBy: Jovanny On: 26-Apr-2014 Mónica Corona MD, MD, Dana M Kenalog Injection, 10 mgm ([id number])By: On: 17-Mar-2014 Intent Jovanny HORNER, Mónica Petty MD, Mónica Mcarthur Kenalog Injection, 10 mgm ([id number])By: On: 17-Mar-2014 Intent Mónica Petty MD, MD, Mónica Mcarthur Kenalog Injection, 10 mgm ([id number])By: On: 17-Mar-2014 Intent Mónica Petty MD, MD, Mónica Treadwellalog Injection, 10 mgm ([id number])By: On: 17-Mar-2014 Intent Mónica Petty MD, MD, Mónica Mcarthur DEXA SCAN AXIAL SKELETON ([id number])By: On: 19-Oct-2013 Intent Mónica Petty MD, MD, Dana M MAMMOGRAM, SCREENING, BOTH BREASTS On: 22-Apr-2013 Intent ([id number])By: Mónica Petty MD, MD, Dana M Eprescribed prescriptions ([id number])By: On: 22-Apr-2013 Intent Mónica Petty MD, MD, Mónica Mcarthur SPECIMEN HANDLING/TRANSPORT On: 20-Nov-2011 Intent ([id number])By: Mary Lemon LPN ADMNIJen, 1 VAC, SNGL/COMBO On: 05-Nov-2011 Intent ([id number])By: Kiera Kim LPN Comments: DECLINED FLU VAC, SPLIT, >3 YEARS, INTRAMUSC On: 05-Nov-2011 Intent ([id number])By: Kiera Kim LPN Comments: DECLINED Spirometry ([id number])By: Jovanny HORNER, On: 07-May-2011 Intent Mónica Gatcia MD PNEUM VAC ADLT/IMUMNOSPR, SBC/INTRM On: 07-May-2011 Intent ([id number])By: Mónica Petty MD, MD, Dana M MAMMOGRAM, SCREENING, BOTH BREASTS On: 07-May-2011 Intent ([id number])By: Mónica Petty MD, MD, Dana M DXA, BONE DENSITY, AXIAL SKELETON On: 07-May-2011 Intent ([id number])By: Mónica Petty MD, MD, Mónica Mcarthur Nuclear Stress Test/Stress On: 24-Jul-2010 Intent SPECT/TreadmillBy: Mónica Petty MD, MD, Dana M Echo CompleteBy: Mónica Petty MD On: 24-Jul-2010 Intent Mónica Petty MD MAMMOGRAM, SCREENING, BOTH BREASTS On: 24-Jul-2010 Intent ([id number])By: Mónica Petty MD, MD, Mónica Mcarthur EKG ([id number])By: FLOR Santana On: 24-Jul-[address] - Abdomen & Pelvis (IV Contrast On: 15-Mar-2010 Intent Needed)By: Alma Jansen DO Comments: call wiht wet read to doc hospital personnel director MAMMOGRAM, SCREENING, BOTH BREASTS On: 07-Aug-2009 Intent ([id number])By: Mónica Petty MD, MD, Dana M CT - ChestBy: Alma Jansen DO On: 02-Nov-2008 Intent Comments: PE PROTOCOL Pulse Oximetry ([id number])By: Inderjit BECK, On: 02-Nov-2008 Intent Alma Bone Density StudyBy: Jovanny HORNER, On: 02-Aug-2008 Intent Mónica Gatica MD Nuclear Medicine - Bone ScanBy: On: 02-Aug-2008 Intent Mónica Petty MD, MD, Mónica Mcarthur Ultrasound - RenalBy: Kellen Upton CNP On: 01-Feb-2008 Intent E SPECIMEN HANDLING/TRANSPORT On: 04-Jan-2008 Intent ([id number])By: Dang Song Radiology - Hand - RightBy: Ciesa On: 22-Oct-2007 Intent Kellen AYERS Radiology - Forearm - RightBy: Ciesa On: 22-Oct-2007 Intent ANDRIA Inessa MAMMOGRAM, SCREENING, BOTH BREASTS On: 02-Jul-2007 Intent ([id number])By: Mónica Petty MD, MD, Mónica Mcarthur EKG ([id number])By: FLOR Santana On: 02-Jul-2007 Intent Spirometry ([id number])By: Max, On: 02-Jul-2007 Intent FLOR Pulse Oximetry ([id number])By: Max On: 02-Jul-2007 Intent FLOR Toradol Injection, 30 mg ([id number])By: On: 04-Sep-2006 Intent Mónica Petty MD, MD, Mónica Mcarthur Solu -Medrol Injection, 125 mg On: 01-Apr-2006 Intent ([id number])By: Mónica Petty MD, MD, Dana M MAMMOGRAM, SCREENING, BOTH BREASTS On: 26-Feb-2006 Intent ([id number])By: Mónica Petty MD, MD, Mónica Mcarthur Planned [...] How to access health information online Indication: Lobot Lobot : How to access health information online - Detail Indication: Xuan Diamondt : Patient Instructions Indication: Wart [place]obot : How to access health information online [...] patient does have durable power of criminal attorney and living will. The patient has [...] for Tdap vaccination (Renamed from Need for hmodhqrdib-fqgygcu-nklrdlsnx (Tdap) vaccine, adult/adolescent), Need for zoster vaccination [...]
--- OUTSIDE RECORDS SUMMARY | 2018-05-22 05:27 | XMS RPT_ITS | Continuity of Care Document ---
:1950 Author Organization [facility] Address [address] [facility] [address] [place] [address] Phone Care Team Providers Name Role Phone Mónica Petty MD Unavailable Dr. Junior Boyle Unavailable Yasmin HORNER , Dr. Ishmael Mcarthur Unavailable FLOR Santana Unavailable Unavailable Unavailable Unavailable Problems Name Dates Details Abnormal EKG (R94.31, 794.31) Comments: conduction delay staying now ? rhythm [facility] cardio hard to tell with [...] in family. bis phonates severe CP. bd -12 doing vibration machine-18 last bd Status: Active Parkinson disease, symptomatic (G20, 332.0) Aug-2014 Comments: 12-18 patient off Mirapex and on Sinimet tid and seems to be working bettertrev chavez. doing natural med now with Dr. Will tompkins. Status: Active Pregnancies () Comments: 4 Status: Active Right knee pain (M25.561, 719.46) Status: Active Screening for cervical cancer (Z12.4, [...] Well woman exam (Z00.00, V70.0) Comments: mammo 6-12, scope 2006, refuse BD Status: Active Well woman exam (Renamed from Encounter for well woman exam) (Z01.419, V72.31) Comments: 10-27-17 [facility] physical mammogram , colonoscopy , due for prevnar 13, refuse influenza, otherwise immunizations are up to date, BD -16-18, PHQ-9 (2) minimal, 6CIT= mammo 12-17, BD [...] days Quantity: 22 {Tablet} Refills: 0 Ordered:08-Mar-2008 Rosemaryroshan ANDRIAKellen Start : 08-Mar-2008 End : 23-Mar-2008 Inactive Azo Tabs 3 per day PRN Inactive BENADRYL, 25MG (Oral Tablet) 1 QD, PRN for 0 days Refills: 0 Ordered:15-Jun-2009 FLOR SantanaInakatlin BIAXIN XL PAC, 500MG (Oral Tablet Extended [...] : 12-Jul-2016 Inactive Comments:12 samples given ERGOCALCIFEROL, 12389OLPD (Oral Capsule) 1 Capsule twice weekly for [...] days Quantity: 30 {Capsule} Refills: 6 Ordered:01-Sep-2017 Jovanny HORNER, Mónica Merida MD, Mónica Mcarthur Start : 01-Sep-2017 End : 01-Sep-2017 Inactive Comments:bradycardia KEFLEX, 500MG (Oral Capsule) 1 (one) Capsule bid for 7 days Quantity: 14 {Capsule} Refills: 0 Ordered:29-May-2009 Kellen Upton CNP Start : 27-Apr-2009 End : 04-May-2009 Inactive Lentra uad qd Inactive Levaquin 500 MG Oral Tablet 1 Tablet qd for 0 days Quantity: 10 {Tablet} Refills: 0 Ordered:17-Feb-2018 FLOR Santana Start : 05-Feb-2018 End : 17-Feb-2018 Inactive NASONEX, 50MCG/ACT (Nasal Suspension) 2 (two) [...] Refills: 3 Ordered:27-Feb-2012 Mónica Petty MD, MD, Dana M Start : 27-Feb-2012 End : 19-Oct-2013 [...] for Tdap vaccination (Renamed from Need for eadyufcrii-vkpcbew-prspmpgws (Tdap) vaccine, adult/adolescent) (Z23, V06.1) Status: Resolved [...] of 10-Aug-2015 Precordial pain (R07.2, 786.51) Comments: 11 cath good Status: Resolved as of 01-Sep-2017 [...] Visit Report Result: Comments: See Note; NOTES: [facility] Oncology [address] [place] [address] OFFICE VISIT Date of Service: 12/15/17 1053 MR#: [id number] Acct: [id number] Name: AZALIA HUNTLEY Rep #: [id number] : 1950 From: Angel Shin MD Age/Sex: [...] inv asion. Tumor is ER positive (95%) FL positive (40%) (and HER-2 not overexpressed. Patient [...] right breast grade 2, E R positive, FL positive, HER-2/skylar not overexpressed. Patient is status [...] Angel Shin MD> Date Angel Shin MD [facility] er Signature: Date (if applicable) CC: 17-Nov-2017 Breast Limited Unilateral Result: Comments: See Note; NOTES: [facility] Imaging Services [address] [place] [address] Breast Limited Unilateral MR#: [id number] Acct: [id number] Name: PARUL HUNTLEY Rep # : [id number] : 1950 F 67 From: Justice Gerardo MD PCP: Mónica Petty MD Status: REG CLI Study: Breast Limited Unilateral Date of Exam: 11/17/17 Exam# [id number] Ordering Dr: Mónica Petty MD STUDY: ULTRASOUND [...] Justice Gerardo MD at 8:37 EDT Tel [phone], Service support , Fax CC: Mónica Petty MD News Content Specialist: Signed 17-Nov-2017 DIAG MAMM W/CAD, UNILAT Result: Comments: See Note; NOTES: [facility] Imaging Services [address] [place] [address] DIAG MAMM W/CAD, UNILAT MR#: [id number] Acct: [id number] Name: PARUL HUNTLEY Rep #: [id number] : 1950 F 67 From: Justice Gerardo MD PCP: Mónica Petty MD Status: REG CLI Study: DIAG MAMM W/CAD, UNILAT Date of Exam: 11/17/17 Exam# [id number] Ordering Dr: Mónica Petty MD MILEY MOGRAPHY - UNILATERAL DIAGNOSTIC: LEFT BREAST REASON [...] Justice Gerardo MD at 14:13 EDT Tel [phone], Service support , CC: Mónica Petty MD News Content Specialist: Signed 06-Nov-[address] w/CCTA Result: Comments: See Note; NOTES: [facility] Imaging Services [address] [place] [address] w/CCTA MR#: [id number] Acct: [id number] Name: PARUL HUNTLEY Rep #: [id number] : 1950 F 67 From: Farhat Montalvo DO PCP: Mónica Petty MD Status: REG CLI Study: Limited Chest CT w/CCTA Date of Exam: 11/06/17 Exam# [id number] Ordering Dr: Mónica Petty MD STUDY: CAR [...] Individualized dose optimization techniques were used [facility]. COMPARISON: Chest, January 26, [...] Normal visualized upper abdomen. ORD ER #: [id number] CT/Limited Chest CT w/CCTA IMPRESSION: 1. Status post right mastectomy. 2. There is no intrathoracic abnormality. Electronically Signed: Farhat Montalvo DO at 18:54 EDT Tel [phone], Service support , CC: Mónica Petty MD News Content Specialist: Signed 11-Sep-2017 Oncology Visit Report Result: Comments: See Note; NOTES: [facility] Oncology [address] [place] [address]. [place] [address] OFFICE VISIT Date of Service: 09/11/17 [facility] MR#: [id number] Acct: [id number] Name: AZALIA HUNTLEY NAHOMY Pao Rep #: [id number] : 1950 From: Angel Shin MD Age/Sex: [...] lymphovascular invasion. Tumor is ER positive (95%) FL positive (40%) (and HER-2 not overexpresse d. [...] the right breast grade 2, ER positive, FL positive, HER-2/skylar not overexpressed. Patient is status [...] Visit Report Result: Comments: See Note; NOTES: [facility] [address] [place] [address] OFFICE VISIT Date of Service: 08/22/17 MR#: [id number] Acct: [id number] Name: MARY HUNTLEY Rep #: [id number] : 1950 Provider: Johann Drake MD Age/Sex: 67/F Location: [facility] Status: Signed HPI HPI Chief Complaint: Follow-up visits. 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) Coding Level of Care Code Off vis,est,level 3 Diagnoses Essential hypertension I10 Hypertension type: essential hypertension Coding Level of Care Code Off vis,est,leve l 3 Diagnoses Essential hypertension I10 Hypertension type: essential hypertension 08/22/17 1055 <Electronically signed by Johann Drake MD> Date Johann Drake MD Cosigner Signature: Date (if applicable) CC: Mónica Petty MD 12-Jun-2017 Oncology Visit Report Result: Comments: See Note; NOTES: [facility] Oncology [facility] [place] [address] OFFICE VISIT Date of Service: 06/12/17 1108 MR#: [id number] Acct: [id number] Name: AZALIA HUNTLEY Rep #: [id number] : 1950 From: Angel Shin MD Age/Sex: [...] invas ion. Tumor is ER positive (95%) FL positive (40%) (and HER-2 not overexpressed. Patient made an uneventful recovery from her surgery. Oncotype DX testing showed her to be at low risk group with a score of 13. Her past medical history is notable for Parkinson's disease, hypertension and vitamin D deficiency state. No family history of breast cancer Treatment: - February 12, 2017 she underwent a rig [...] the right breast grade 2, ER positive, FL positive, HER-2/skylar not overexpressed. Patient is status [...] Visit Report Result: Comments: See Note; NOTES: [facility] [address] [place] [address] OFFICE VISIT Date of Service: 04/04/17 MR#: [id number] Acct: [id number] Name: PARUL BERMEO Rep #: [id number] : 1950 Provider: Adilson Crawford MD Age/Sex: 66/F Location: [facility] Status: Signed Intake Intake Visit Reasons: 1 M FU Mastectomy Fish Grader Required: N o Is patient in pain?: [...] 02/10/17 [History Confirmed 04/04/17] Ubidecarenone/Vitamin E Mixed [Qsw53-Blf E 200 mg- 20 Unit Sfg] 1 [...] year to follow-up. Adilson Crawford MD Pager: [facility] [address], [address] [address] Office: Coding Level of Care Code Global Post Op Diagnoses Primary cancer of right f emale breast C50.911 04/04/17 1354 <Electronically signed by Adilson Crawford MD> Date Adilson Crawford MD Cosigner Signature: Date (if applicable) CC: Mónica Petty MD 18-Mar-2017 Dexa Bone Density Study (HP) Result: Comments: See Note; NOTES: [facility] Imaging Services [address] [place] [address] Dexa Bone Density Study (HP) MR#: [id number] Acct: [id number] Name: PARUL HUNTLEY p #: [id number] : 1950 F 66 From: Justice Gerardo MD PCP: Mónica Petty MD Status: REG CLI Study: Dexa Bone Density Study (HP) Date of Exam: 03/18/17 Exam# [id number] Ordering Dr: Skylar Shin MD STUDY: DUAL [...] Justice Gerardo MD at 15:58 EST Tel [phone], Service support , CC: Mónica Petty MD; Angel Shin MD News Content Specialist: Signed 17-Mar-2017 Plastic Surgery Visit Report Result: Comments: See Note; NOTES: [facility] [address] [place] [address] OFFICE VISIT Date of Service: 02/05/17 MR#: [id number] Acct: [id number] Name: PARUL HUNTLEY Rep #: [id number] : 1950 Provider: Tyler Amezcua MD Age/Sex: 66/F Location: [facility] Status: Signed Intake Vital Signs02/05/17 Height 5 ft 2 in 02/05/17 Weight: 14 5 lb 02/05/17 Body Mass Index (BMI) 26.5 02/05/17 Respiratory Rate 20 Intake Visit Reasons: evaluation breast reconstruction Fish Grader Required: No Is patient in pain?: No [...] 02/10/17 [History Confirmed 03/13/17] Ubidecarenone/Vitamin E Mixed [Ubo30-Qof E 200 mg-20 Unit Sfg] 1 ea [...] receptors were positive. Progesterone receptors were positive. Shc7zcd was negative. She comes in today to [...] for breast cancer. Father: age 60 of [place], hx CAD Mother: age 70 of [place], hx CAD and diabetes SOCIAL HISTORY: Patient [...] main types of reconstruction are using an discharge planner and/or implant or using autogenous tissue such [...] Result: Comments: See Note; NOTES: [facility] Medical Records Department [address] [place] [address] History and Physical 03/13/17 1056 MR#: [id number] Acct: [id number] Name: Roe HUNTLEY Rep #: [id number] : 1950 66 From: Angel Shin MD PCP: Mónica Petty MD Status: REG RCR Y Location: [facility] (1) Primary cancer of right female breast [...] lymphovascular invasion. Tumor is ER positive (95%) FL positive (40%) (and HER-2 not overexpressed. Patient made an uneventful recovery from her surgery. Oncotype DX testing showed her to be at low risk group with a score of 13. Her past medical history is notable for Parkinson's disease, hypertension and vitamin D deficiency state. 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 Patient is status [...] indicated. Patient was seen was her and [id number]. Impression and recommendation discussed. The rationale behind [...] Visit Report Result: Comments: See Note; NOTES: [facility] [address] [place] [address] OFFICE VISIT Date of Service: 03/04/17 MR#: [id number] Acct: [id number] Name: PARUL BERMEO Rep #: [id number] : 1950 Provider: Adilson Crawford MD Age/Sex: 66/F Location: [facility] Status: Signed Intake Intake Visit Reasons: 2 week f/u mastectomy Fish Grader Require d: No Is patient in pain?: [...] 02/10/17 [History Confirmed 03/04/17] Ubidecarenone/Vitamin E Mixed [Mpx68-Zfs E 200 mg-20 Unit Sfg] 1 ea [...] healing well. Exam Chest Other: The pat iejanki's right breast area is healing. The upper [...] this will dissipate Adilson Crawford MD Pager: [facility] [address], [facility] [address] [place] [place] [address] Office: Medications New: 03/05/17 0903 <Electronically signed by Adilson Crawford MD> Date Adilson Crawford MD Cosigner Signature: Date (if applicable) CC: Mónica Petty MD; Angel Shin MD 13-Feb-2017 Discharge Summary Result: Comments: See Note; NOTES: [facility] Medical Records Department [address] [place] [address] Discharge Summary 02/13/17 0804 MR#: [id number] Acct: [id number] Name: NEYMAR HUNTLEY Rep #: [id number] : 1950 66 From: Adilson Crawford MD PCP: Mónica Petty MD Status: REG [facility] Location: [place] [address] Discharge Date and Diagnosis - Problem List [...] Imaging Results: Clinical Impression(s) from Imaging Studies [place] Node 02/12/17 11:00 IMPRESSION: Injectio n of 1.1 mCi of technetium level sulfur colloid for sentinel node imaging. Electronically Signed: Justice Gerardo MD at 12:38 EST Tel [phone], Service support , Fax Operations: - - [...] patch TRANSDERM. DAILY 02/10/17 Ubidecarenone/Vitamin E Mixed [Eju03-Fkl E 200 mg-20 Unit Sfg] 1 each [...] call today to make appt mon or [phone] Meaningful Use Info Meaningful Use Diagnoses (Choose all that apply): None applicable 02/13/17 0806 <Electronically signed by Adilson Crawford MD> Date Adilson Crawford MD Cosigner Signature (if applicable): Date CC: Adilson Crawford MD; Mónica Petty MD Signed 13-Feb-2017 Discharge Summary Result: Comments: See Note; NOTES: [facility] Medical Records Department [address] [place] [address] Discharge Summary 02/13/17 0753 MR#: [id number] Acct: [id number] Name: NEYMAR HUNTLEY Rep #: [id number] : 1950 66 From: Adilson Crawford MD PCP: Mónica Petty MD Status: REG [facility] Location: [place] [address] Discharge Date and Diagnosis - Problem List [...] (Last Updated 02/03/17 @ 13:46 by Moni rBewster) Asthma (Chronic) Benign essential hypertension (Chronic) Hospital [...] patch TRANSDERM. DAILY 02/10/17 Ubidecarenone/Vitamin E Mixed [Ywi89-Oqr E 200 mg-20 Unit Sfg] 1 each [...] ose all that apply): None applicable 02/13/17 0806 <Electronically signed by Adilson Crawford MD> Date Adilson Crawford MD Cosig ner Signature (if applicable): Date CC: Adilson Crawford MD; Mónica Petty MD Signed 13-Feb-2017 Discharge Instruction Result: Comments: See Note; NOTES: [facility] Medical Records Department [address] [place] [address] Instructions for Home/Discharge Instructions 02/13/17 0756 MR#: [id number] Acct: [id number] Name: WILLAPARUL SCOTT Rep #: [id number] : 1950 66 From: Adilson Crawford MD PCP: Mónica Petty MD Status: REG [facility] Discharge Diet: No Restrictions Discharge Activity: May [...] TRANSDERM. LAUREANO LY 02/10/17 Ubidecarenone/Vitamin E Mixed [Ghn12-Qvo E 200 mg-20 Unit Sfg] 1 each [...] MD When: call today to make appt larry or rosimeng [phone] 02/13/17 5186 <Electronically signed by Adilson Crawford MD> Date _ Adilson Crawford MD CC: Mónica Petty MD 12-Feb-2017 Operative Report Result: Comments: See Note; NOTES: [facility] Medical Records Department [address] [place] [address] Operative Report 02/12/17 1709 MR#: [id number] Acct: [id number] Name: SCOTT HUNTLEY Rep #: [id number] : 1950 66 From: Adilson Crawford MD PCP: Mónica Petty MD Status: REG [facility] Location: [place] [address] Problem List (1) Breast cancer, right Status: Acute Qualifiers: [address] location: central portion of breast Estrogen [...] hemostat was used to bring a 15 Yemeni round drain into the inferior flap. The [...] VTE Mechan Device Proph ylaxis: SCD's 02/12/17 4581 <Electronically signed by Adilson Crawford MD> Date Adilson Crawford MD CC: Adilson Crawford MD; Mónica Petty MD Signed 12-Feb-2017 Lymph Node Injection Only Result: Comments: See Note; NOTES: [facility] Imaging Services [address] [place] [address] Lymph Node Injection Only MR#: [id number] Acct: [id number] Name: PARUL HUNTLEY Rep # : [id number] : 1950 F 66 From: Justice Gerardo MD PCP: Mónica Petty MD Status: [facility] Study: Lymph Node Injection Only Date of Exam: 02/12/17 Exam# [id number] Ordering Dr: Patti Crawford MD PROCEDURE: NUCLEAR MEDICINE Injection Central [place] Node - RIGHT breast(s). REASON FOR EXAM: Female, 66 years old. Right breast cancer. TECHNIQUE: [place] node localization using radionuclide metho ds of [...] Justice Gerardo MD at 12:38 EST Tel [phone], Service support , Fax CC: Adilson Crawford MD; Mónica Petty MD News Content Specialist: Signed 03-Feb-2017 PET/CT Tumor Base -Thigh Init Result: Comments: See Note; NOTES: [facility] Imaging Services [address] [place] [address] PET/CT Tumor Base -Thigh Init MR#: [id number] Acct: [id number] Name: PARUL HUNTLEY ep #: [id number] : 1950 F 66 From: Richard Pino DO PCP: Mónica Petty MD Status: REG CLI Study: PET/CT Tumor Base -Thigh Init Date of Exam: 02/03/17 Exam# [id number] Ordering Dr: Chris Crawford MD EXAMINATION: FDG [...] manifest in the right breast presumably is medicare sales representative of the site of the patient?s recent histologically confirmed b reast malignancy. 2. Prominent glucose concentration observed in the descending thoracic aorta is commensurate with activated leukocytes associated with atherosclerotic plaque formation. (Benigno et al, C linical Nuclear Medicine 29:93, 2004). 3. There is no definitive quantitatively significant evidence of distant metastatic disease. Electronic Signature Richard Pino D.O. Electronically Signed: Manpreet Pino DO at 13:20 EST Tel , Service support , CC: Adilson Crawford MD; Mónica Petty MD News Content Specialist: Signed 13-Jan-2017 Breast w/o and/or W Cont Bilat Result: Comments: See Note; NOTES: [facility] Imaging Services [address] [place] [address] Breast w/o and/or W Cont Bilat MR#: [id number] Acct: [id number] Name: PARUL HUNTLEY Rep #: [id number] : 1950 F 66 From: oJanne Hagen MD PCP: Mónica Petty MD Status: REG CLI Study: Breast w/o and/or W Cont Bilat Date of Exam: 01/13/17 Exam# [id number] Ordering Dr: Chris Crawford MD STUDY: BILATERAL [...] CC: Adilson Crawford MD; Mónica Petty MD News Content Specialist: Signed 26-Dec-2016 Breast Limited Unilateral Result: Comments: See Note; NOTES: [facility] Imaging Services [address] [place] [address] Breast Limited Unilateral MR#: [id number] Acct: [id number] Name: PARUL HUNTLEY Rep # : [id number] : 1950 F 66 From: Justice Gerardo MD PCP: Mónica Petty MD Status: REG CLI Study: Breast Limited Unilateral Date of Exam: 12/26/16 Exam# [id number] Ordering Dr: Mónica Petty MD STUDY: ULTRASOUND [...] Justice Gerardo MD at 15:02 EDT Tel [phone], Service support , CC: Mónica Petty MD News Content Specialist: Signed 26-Dec-2016 SCREENING MAMM (CAD), BILAT Result: Comments: See Note; NOTES: [facility] Imaging Services [address] [place] [address] SCREENING MAMM (CAD), BILAT MR#: [id number] Acct: [id number] Name: PARUL HUNTLEY Rep #: [id number] : 1950 F 66 From: Justice Gerardo MD PCP: Mónica Petty MD Status: REG CLI Study: SCREENING MAMM (CAD), BILAT Date of Exam: 12/26/16 Exam# [id number] Ordering Dr: Mónica Petty MD MAMMOGRAPHY - [...] aspect of the right breast. Correlation wi ultrasound is recommended. This may be the [...] delay biopsy of a clinically suspicious abnormality. [id number] Electronically Signed: Justice suggs MD at 11:31 EDT Tel [phone], Service support , CC: Mónica Petty MD News Content Specialist: Signed 20-Dec-2015 Bilat Scrn Digital AND CAD Result: Comments: See Note; NOTES: [facility] Imaging Services [address] [place] [address] Verdana 4d Bilat Scrn Digital AND CAD MR#: [id number] Acct: [id number] Name: SCOTT HUNTLEY Rep #: [id number] : 1950 F 65 From: Justice Gerardo MD PCP: Mónica Petty MD Status: REG CLI Study: Bilat Scrn Digital AND CAD Date of Exam: 12/20/15 Exam# [id number] Ordering Dr: Mónica Corral MD MAMMOGRAPHY - [...] delay biopsy of a clinically suspicious abnormality. [id number] Electronically Signed: Justice Gerardo MD at 14:08 EDT Tel [phone], Service support [phone], CC: Mónica Petty MD News Content Specialist: Signed 13-Dec-2014 Cristi Pham Digital AND CAD Result: Comments: See Note; NOTES: [facility] Imaging Services [address] [place] [address] Breast Imaging Report MR#: [id number] Acct: [id number] Name: PARUL HUNTLEY Rep #: [id number] : 1950 F 64 From: Justice Gerardo MD PCP: Mónica Petty MD Status: REG CLI Study: Cristi Pham Digital AND CAD Date of Exam: 12/13/14 Exam# [id number] Ordering Dr: Mónica Grant MD MAMMOGRAPHY - [...] Justice Gerardo MD at 8:13 EDT Tel [phone], Service support [phone], CC: Mónica Petty MD News Content Specialist: Signed 26-Apr-2014 Knee 4 or More Views Result: Comments: See Note; NOTES: [facility] Imaging Services [address] [place] [address] Radiology Report MR#: [id number] Acct: [id number] Name: PARUL HUNTLEY Rep #: [id number] : 1950 F 63 From: Justice Gerardo MD PCP: Mónica Petty MD Status: REG CLI Study: Knee 4 or More Views Date of Exam: 04/26/14 Exam# [id number] Ordering Dr: Mónica Petty MD S TUDY: [...] Gerardo MD 2 at 15:36 EST Tel [phone], Service support [phone], CC: Mónica Petty MD News Content Specialist: Signed 17-May-2013 Cristi Pham Digital & CAD Result: Comments: See Note; NOTES: [facility] Imaging Services [address] [place] [address] Breast Imaging Report MR#: [id number] Acct: [id number] Name: PARUL HUNTLEY Rep #: [id number] : 1950 F 62 From: Justice Gerardo MD PCP: Mónica Petty MD Status: REG CLI Exam# [id number] Ordering Dr: Mónica Petty MD MAMMOGRAPHY - [...] M.D. at 11:03 EDT , Service support [phone], CC: Mónica Petty MD News Content Specialist: Signed Family History Unknown Family Member Name Dates Details 8 siblings: Sjorgens, DM in 2 sisters, RA, younger sister had [place] and DM Comments: [place] at 63yo. hyperthyriodism Status: Active Father Comments: at 67 from [place], not involved with him not know history, acoholism Status: Active maternal cousin neck cancer 17 yo Status: Active maternal uncle Parkinsons Status: Active Mother Comments: at 67 from [place], DM in 50's obesity. some high cholesterol. 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 left [place] at 18 yo to live with sister [...] smoker Vital Signs Date Test Result Details 10-Zek-287861:22 Temperature 97.6 f Comments: Method: Temporal Pulse 68 /min Comments: Pattern: Regular Respiration Rate 20 /min Comments: Pattern: Unlabored O2 SAT 98 % Comments: Room air BP Systolic 164 mm[Hg] Comments: Patient Position: Sitting; Cuff Location: Left Arm; Cuff Size: Standard BP Diastolic 100 mm[Hg] Comments: Patient Position: Sitting; Cuff Location: Left Arm; Cuff Size: Standard Weight 142 lb Height 60.8 in Body Mass Index Calculated 27.01 kg/m2 Body Surface Area Calculated 1.63 m2 39-Shm-236388:55 Temperature 97.8 f Comments: Method: Temporal Pulse [...] 0.00 cm Results Date Description Value Details 70-Dsl-20082:48 Pap IG, rfx HPV Comments: Source.............Cervix;EndocervixNo. of containers..01 ThinPrep VialPATIENT NOT FASTINGPERFORMED BY: [facility] [address] [id number] Information: [id number] all pth Note: PAPSMR (Normal) Comments: The [...] t) are present.Partially obscuring thick areas are present.Z12.4Emarysol Duarte, Referral Rn (ASCP)Cassie Jain, Supervisory Referral Rn (ASCP) 11-Hyz-418876:58 C-REACT PROT HIGH SENS(hsCRP) Comments: PATIENT NOT FASTINGPERFORMED BY: [employer] [facility] [place] [id number] ([id number]) C-Reactive Protein, Cardiac 11.71 mg/L (Abnormal) Range: 0.00-3.00 Comments: Relative Risk for Future Cardiovascular Event Low <1.00 Average 1.00 - 3.00 High >3.00 85-Gkq-405861:12 Microscopic Examination Comments: PATIENT NOT FASTINGPERFORMED BY: [employer] [facility] [place] [id number] Bacteria Moderate (Abnormal) Mucus Threads Present (Normal) Crystal Type Amorphous Sediment (Normal) Crystals Present (Abnormal) Epithelial Cells (non renal) 0-10 {/hpf} (Normal) Range: 0 - 10 RBC 3-10 {/hpf} (Abnormal) Range: 0 - 2 WBC >30 {/hpf} (Abnormal) Range: 0 - 5 81-Edc-310359:46 URINE BOOGIE CULTURE-IDENTIFICATN Comments: PATIENT NOT FASTINGPERFORMED BY: [employer] [facility] [place] [id number] Information: SRC:MICHELLE (71889) Antimicrobial MIHEAD (Normal) Comments: S = Susceptible; [...] and Proteusmirabilis. Urine Final report Culture,Comprehensive (Abnormal) 61-Sfg-960308:27 CBC W/Diff, Automated Comments: Reason for Laboratory Test .[facility] [address] [place], [address] Absolute Lymph 1.08 {X10_3/ul} (Normal) Range: 0.83-4.51 [...] 4.2-5.4 WBC 5.0 K/mm3 (Normal) Range: 4.4-11.0 55-Ybp-834968:27 Comprehensive Metabolic Profil Comments: Reason for Laboratory Test .[facility] [address] [place], [address] GAP 6 (Normal) Range: 5-15 CO2 29.0 [...] Comments: Please note revised GLUCOSE reference range qifdnyrmd04/02/2018. 34-Cxg-875805:55 CBC W/Diff, Automated Comments: Reason for Laboratory Test .[facility] [address] [place], [place], [address] Absolute Lymph 1.26 {X10_3/ul} (Normal) Range: 0.83-4.51 [...] 4.2-5.4 WBC 4.6 K/mm3 (Normal) Range: 4.4-11.0 23-Gxd-170283:55 Comprehensive Metabolic Profil Comments: Reason for Laboratory Test .[facility] [address] [place], [place], [address] GAP 6 (Normal) Range: 5-15 CO2 28.0 mmol/L (Normal) Range: 21.0-32.0 CL 107 mmol/L (Normal) Range: 98-107 K 4.1 mmol/L (Normal) Range: 3.5-5.1 NA 141 mmol/L (Normal) Range: 136-145 T BILI 0.40 mg/dL (Normal) Range: 0.20-1.00 ALT 21 U/L (Normal) Range: 13-56 Comments: Please note revised ALT reference range fscftgche84/28/2018. ALK P 76 U/L (Normal) Range: 45-117 [...] Comments: Please note revised GLUCOSE reference range cfvxxuqkk81/02/2018. 06-Mdf-294015:55 Vitamin D,25 Hydroxy Comments: Reason for Laboratory Test .[facility] [address] [place], [place], [id number] Vitamin D 25-OH 33.6 ng/mL (Normal) Range: 29.95-100.01 Comments: Vitamin D 25(OH) Status Range Deficiency <20 ng/mL (50nmol/L) Insuffciency 20 - 30 ng/mL (50 - 75 nmol/L) Sufficiency 30 - 100 ng/mL (75 - 250 nmol/L) Toxicity >100 ng/mL (>250 nmol/L) 84-Pko-893370:14 CBC W/Diff, Automated Comments: Reason for Laboratory Test [facility] [address] [place], [address] Absolute Lymph 1.49 {X10_3/ul} (Normal) [...] 4.2-5.4 WBC 6.0 K/mm3 (Normal) Range: 4.4-11.0 96-Qvf-508611:14 Comprehensive Metabolic Profil Comments: Reason for Laboratory Test [facility] [address] [place], [place], [id number] GAP 7 (Normal) Range: 5-15 CO2 28.0 [...] 7-18 GLU 96 mg/dL (Normal) Range: 70-110 36-Fzx-62883:34 Basic Metabolic Profile (BMP) Comments: [facility] [address] [place], [place], [id number] GAP 8 (Normal) Range: 5-15 CO2 25.0 [...] <126 mg/dLsuggests IMPAIRED HOMEOSTASIS per A.D.A. criteria. 87-Edq-81676:34 CBC W/Diff, Automated Comments: [facility] [address] [place], [place], [address] Absolute Lymph 0.74 {X10_3/ul} (Abnormal) Range: 0.83-4.51 [...] 4.2-5.4 WBC 7.4 K/mm3 (Normal) Range: 4.4-11.0 97-Lah-661398:20 Partial Thromboplast Time Comments: [place] [address] [place], [id number] PTT 27.7 s (Normal) Range: 24.1-36.2 99-Ocg-778330:20 Prothrombin Time w/INR Comments: [place] [address] [place], [address] INR 1.0 (Normal) PROTIME 12.5 s (Normal) Range: 11.7-14.9 39-Iia-091899:57 CBC-Complete Blood Cnt No Diff Comments: [facility] [address] [place], [id number] MPV 10.2 fL (Normal) Range: 6.2-12.0 PLT [...] 4.2-5.4 WBC 4.5 K/mm3 (Normal) Range: 4.4-11.0 08-Jch-135007:57 Liver Profile Comments: [place] [address] [place], [id number] D BILI 0.15 mg/dL Range: 0.00-0.30 (Normal) [...] BIOPSY (CHOOSE SITE) See Note (Normal) Comments: [facility] [address] [place], [address] 710:35 Comments: Patient: PARUL HUNTLEY : 1950 (66/F) Acct Num: [id number] Phys: Yvette HORNER,Adilson Unit Num: [id number] Loc: [facility] Specimen: [id number] Received: 01/16/17943 Spec Type: BREAST BX TISSUES TISSUES: COMMENT Immunohistochemistry ([id number]) supports the above diagnosis. ER/FL/Oiy8ayc studies are being performed on sections of tumor and the r esults from this study will be reported separately ([id number]). GROSS DESCRIPTION Received in fixative is one container labeled with the patient's name and designated right breast tissue. The s pecimen consists of multiple elongated fragments of cabrera-yellow fibroadipose tissue that in aggregate measure 2 x 0.3 x 0.1 cm. The entire specimen is submitted in one cassette. / SJ:abena 01/16/17 TC:0 CPT: 14356 HEADER OPERATION: Right breast mammotome biopsy PRE-OP DIAGNOSIS: Abnormal breast MRI TISSUE SUBMITTED: Right breast tissue ISCHEMIC TIME: 5 seconds FIXATION TIME: 33 hours MICROSCOPIC DESCRIPTION Slides are reviewed. MICROSCOPIC DIAGNOSIS Right breast, mammotome core biopsy: Invasive lobular carcinoma, nuclear grade 2 (1.5 cm in greatest length). S ee comment. FELICIANO:abena 01/17/17 Signed Dario Bill 01/17/17 <signature on file> IMMUNOHISTOCHEMISTRY See Note (Normal) Comments: [facility] [address] [place], [address] 70:00 Comments: Patient: PARUL HUNTLEY : 1950 (66/F) Acct Num: [id number] Phys: Yvette HORNER,Adilson Unit Num: [id number] Loc: [facility] Specimen: [id number] Received: 01/17/171255 Spec Type: IMMUNO TISSUES TISSUES: SPECIMEN INFORMATION: Tissue Source: Right breast tissue Clinical Info: Abnormal breast MRI Specimen Number: [id number] CPT code: 30941, 883 41 x4, 98147 x3 METHODOLOGY: Deparaffinized sections of prefer/formalin- fixed tissue or PAP/DQ stained slides are incubated with monoclonal/polyclonal antibodies/oligonucleotide probes. Localizati on is made via biotin free immunoperoxidase method. Appropriate controls are performed and reacted as expected. Results on target cell population are indicated in the following table: RESULTS: A NTIBODY / CLONE RESULT E-Cad (ECH-6) negative CK8 (73kjpaR23) positive CK5-6 (D5 AND 1684) negative Ki-67 (30-9) positive , low P53 (DO-7) negative MORPHOMETRIC ANALYSIS ER (clone 6F11) >95%, strong FL (clone 16/1E2) 40% , weak to moderate [...] fo r all equivocal cases. Positivity/negativity for ER/FL is reported if > or < 1% of the tumor cells are immuno- reactive, respectively. The ASCO/CAP criteria is used for scoring. Reference: Journal of Clinical Oncology, 2013; 31:2056-8366 AND 2010; 16:8766-1296. Duration of fixation: 33 Hrs; Sample Adequate: Yes. These assays have not been validated on decalcified tissues. Results should b einterpreted with caution given the likelihood of false negativity on decalcifiedspecimens. These tests were developed and their performance characteristics determined by [facility] L aboratory. They may not have been cleared or approved by the U.S. Food and Drug Administration. The FDA has determined that such clearance or approval is not necessary. INTERPRETATION: Right jennifer ast, mammotome biopsy: Invasive lobular carcinoma, nuclear grade 2. Positive for estrogen receptors (favorable prognostic indicator). Positive for progesterone receptors (favorable prognos tic indicator). Negative for overexpression of ZYK7xzi. SJ:abena 01/17/17 PHYSICIAN AND INSTITUTION [facility] [address] [place], [place] [address] Signed __ Dario Bill 01/17/17 <signature on file> 31-Aoe-92090:30 CREATININE FINGERSTICK Comments: [facility] LaboratoryPoint of Dhtv[address] [place] [address]. [place] [address] EGFR WB > 60.0000 mL/min (Normal) CREATININE WB 0.7 mg/dL (Normal) Range: 0.55-1.02 91-Cub-241005:12 MICROALBUMIN: CREATININE RATIO Comments: PATIENT NOT FASTINGPERFORMED BY: [facility] Glrtfv4231 [facility] [id number] (22117) AND (50636) Alb/Creat Ratio 41.6 {mg/g_creat} (Abnormal) Range: 0.0-30.0 Albumin, Urine 26.1 ug/mL (Normal) Creatinine, Urine 62.7 mg/dL (Normal) 48-Fjq-652177:12 URINALYSIS (94010) Comments: PATIENT NOT FASTINGPERFORMED BY: [facility] Bmbjge9583 [facility] [id number]; patient was treated with Cipro Microscopic Examination See below: (Normal) Comments: Microscopic was indicated and was performed. Nitrite, Urine Positive (Abnormal) Urobilinogen,Semi-Qn 1.0 mg/dL (Normal) Range: 0.2-1.0 Bilirubin Negative (Normal) Occult Blood Trace (Abnormal) Ketones Negative (Normal) Glucose Negative (Normal) Protein Negative (Normal) WBC Esterase 3+ (Abnormal) Appearance Clear (Normal) Urine-Color Yellow (Normal) pH 6.5 (Normal) Range: 5.0-7.5 Specific Clarks 1.011 (Normal) Range: 1.005-1.030 91-Gki-439882:12 Metabolic Panel, Comprehensive Comments: PATIENT NOT FASTINGPERFORMED BY: [facility] CenterZxavcs9623 [facility] [id number] (03700) ALT (SGPT) 16 [iU]/L (Normal) Range: 0-32 [...] 8-27 Glucose 94 mg/dL (Normal) Range: 65-99 02-Orl-603788:12 CBC WITH MANUAL DIFF Comments: PATIENT NOT FASTINGPERFORMED BY: IZEA Udjppx8526 [facility] [id number] Information: NURSE DRAW (41057) Immature Grans (Abs) 0.0 {x10E3/uL} (Normal) Range: [...] 3.77-5.28 WBC 7.3 {x10E3/uL} (Normal) Range: 3.4-10.8 0-Yfv-482949:00 Pathology Report Comments: PERFORMED BY: KWCYT [facility] [place] Cyto Bfymi34794 [facility] [id number] BY: [facility] Dermatopathology Ckjwqbx[address] [id number] Information: [id number] See MATER Comments: Material submitted: .RIGHT BOTTOM [...] DermatopathologistGross description: .RECEIVED IN FORMALIN LABELED PARUL UHNTLEY AND DESIGNATEDBIOPSY FOOT IS A 0.6 CM PU [facility] BIOPSY OF CORNIFIED SKIN HAVING ADERMIS OF 0.4 CM. ECCENTRICALLY LOCATED ON THE SKIN SURFACE IS A0.4 CM IN DIAMETER FIRM YELLOW SLIGHTLY RAISED AREA. THE DERMISIS MARKED WITH RED INK AND THE SPECIME N IS BISECTED AND SUBMITTEDIN TOTO IN ONE BLOCK.LIT/VINPathologist provided ICD-10:B07.9CPT .396209 3 COLON See Note Comments: [facility] [address] [place], [address] 1 BIOPS (Normal) Comments: Patient: PARUL HUNTLEY : 1950 (66/F) Acct Num: [id number] Phys: Junior Boyle Unit Num: [id number] Loc: LABSPEC Specimen: [id number] Received: 10/31/161606 Spec Ty - Y pe: [...] one cassette. / Ramonita 11/01/16 TC:1 CPT: 58603 HEADER u SE OPERATION: Colonoscopy with biopsies PRE-OP DIAGNOSIS: Screening TISSUE SUBMITTED: Right colon polyp biopsies - rule out adenoma MICROSCOPIC DESCRIPTION Slides are reviewed. MICROSCOPIC g SITE) DIAGNOSIS Right colon polyp, biopsy: Fragments of hyperplastic polyp. FELCIIANO:abena 11/05/16 Signed Dario Bill 11/05/16 <signature on file> - 2 0 1 7 1 1 : 0 7 68-Quh-054780:08 CBC with auto diff (24596) Comments: PATIENT NOT FASTINGPERFORMED BY: [facility]CoThe Valley HospitalMkuvfj4022 [facility] [id number] Immature Grans (Abs) 0.0 {x10E3/uL} (Normal) Range: [...] 3.77-5.28 WBC 5.6 {x10E3/uL} (Normal) Range: 3.4-10.8 21-Psb-408422:08 METABOLIC PANEL, COMPREHENSIVE Comments: PATIENT NOT FASTINGPERFORMED BY: [facility]CoThe Valley HospitalStzaia3359 [facility] [id number] (91940) ALT (SGPT) 13 [iU]/L (Normal) Range: 0-32 [...] Glucose, Serum 93 mg/dL (Normal) Range: 65-99 16-Auk-426139:08 CALCIFIDIOL (67564) VIT D 25 Comments: PATIENT NOT FASTINGPERFORMED BY: CB [facility] Ihxile5[address] [place] [address] [id number] Vitamin D, 25-Hydroxy 54.0 ng/mL (Normal) Range: 30.0-100.0 Comments: Vitamin D deficiency has been defined by the [place] ofThe University Of Tol[facility] Medical Centercine and an Endocrine Society practice guideline as alevel of serum 25-OH vitamin D less than 20 ng/mL (1,2).The Endocrine Society went on to further define vitamin Dinsufficiency as a level between 21 and 29 ng/mL (2).1. IOM ([place] of Medicine). 2010. Dietary reference intakes for calcium and D. [place]: The National Academies Press.2. Angelo MF, Chin HANSEN, Katy HERRERA, et al. Evaluation, treatment, and prevention of vitamin D deficiency: an Endocrine Society clinical practice guideline. JCEM. 2010; 96(7):1911-30. 88-Qcl-004722:45 Anti-TPO Antibody (58627) Comments: PATIENT NOT FASTINGPERFORMED BY: CB [facility] Sdlvbd4062 [address] [place] [id number] Thyroid Peroxidase (TPO) Ab <6 {IU/mL} (Normal) Range: 0-34 :45 T3, FREE (TRIDOTHYRONINE) (61953) Comments: PATIENT NOT FASTINGPERFORMED BY: [facility] Zoeqms1750 [address] [place] [id number] Triiodothyronine,Free,Serum 2.7 pg/mL (Normal) Range: 2.0-4.4 :45 T4, FREE (THYROXINE) (23348) Comments: PATIENT NOT FASTINGPERFORMED BY: CB [facility] Xyazyl2451 [address] [place] [id number] T4,Free(Direct) 1.22 ng/dL (Normal) Range: 0.82-1.77 00-Opi-330223:45 TSH (THYROID STIMULATING Comments: PATIENT NOT FASTINGPERFORMED BY: CB [facility] Gyuidn5908 [address] [place] [id number]; fu 12-19 HORMONE) (07667) TSH 2.340 {uIU/mL} (Normal) Range: 0.450-4.500 :13 CALCIFIDIOL (38342) VIT D 25 Comments: PATIENT WAS FASTINGPERFORMED BY: IZEA Ttkzuw2800 [facility] [id number] Vitamin D, 25-Hydroxy 43.6 ng/mL (Normal) Range: 30.0-100.0 Comments: Vitamin D deficiency has been defined by the [place] ofMedicine and an Endocrine Society practice guideline as alevel of serum 25-OH vitamin D less than 20 ng/mL (1,2).The Endocrine Society went on to further define vitamin Dinsufficiency as a level between 21 and 29 ng/mL (2).1. IOM ([place] of Medicine). 2010. Dietary reference intakes for calcium and D. [place]: The National Academies Press.2. Angelo MF, Chin NC, Katy HERRERA, et al. Evaluation, treatment, and prevention of vitamin D deficiency: an Endocrine Society clinical practice guideline. JCEM. 2010; 96(7):1911-30. :13 URINALYSIS (88709) Comments: PATIENT WAS FASTINGPERFORMED BY: IZEA Qmpzmp0566 [facility] [id number] Microscopic Examination MICNIP (Normal) Comments: Microscopic not indicated and not performed. Nitrite, Urine Negative (Normal) Urobilinogen,Semi-Qn 0.2 mg/dL (Normal) Range: 0.2-1.0 Bilirubin Negative (Normal) Occult Blood Negative (Normal) Ketones Negative (Normal) Glucose Negative (Normal) Protein Negative (Normal) WBC Esterase Negative (Normal) Appearance Clear (Normal) Urine-Color Yellow (Normal) pH 7.0 (Normal) Range: 5.0-7.5 Specific Clarks 1.021 (Normal) Range: 1.005-1.030 :13 Metabolic Panel, Comprehensive Comments: PATIENT WAS FASTINGPERFORMED BY: IZEASan [facility] Medical CenterRycdqz3395 [facility] [id number] (45343) ALT (SGPT) 23 [iU]/L (Normal) Range: 0-32 [...] Glucose, Serum 84 mg/dL (Normal) Range: 65-99 09-Aug-20158:13 Lipid Panel (52435) Comments: PATIENT WAS FASTINGPERFORMED BY: [facility]6370 [facility] [id number] LDL/HDL Ratio 1.6 {ratio_units} (Normal) Range: 0.0-3.2 [...] MANUAL DIFF Comments: PATIENT WAS FASTINGPERFORMED BY: [employer] Bxwrhe6800 [facility] [id number] Information: [id number]; [address]. [address] (48907) Immature Grans (Abs) 0.0 {x10E3/uL} (Normal) Range: [...] CULTURE-KATHRYN COL Comments: PATIENT NOT FASTINGPERFORMED BY: [employer] Jhjsdp3877 [facility] [id number] Information: SRC:[facility] [id number] COUNT (58208) Result 1 NG36 (Normal) Comments: No growth in 36 - 48 hours. Urine Culture,Comprehensive Final report (Normal) 9-Ofz-812156:50 Urinalysis, Office (41840) UA - LEUKOCYTE ESTERASE Small (Normal) UA - NITRITE Negative (Normal) URINE UROBILINGN KATHRYN TIMED Normal mg/dL (Normal) UA - PROTEIN Negative mg/dL (Normal) UA - PH 6 (Abnormal) UA - BLOOD Hemolyzed Trace (Normal) UA - SPECIFIC GRAVITY 1.020 (Normal) UA - KETONES Negative mg/dL (Normal) UA - BILIRUBIN Negative (Normal) UA - GLUCOSE Negative (Normal) 40-Tne-001146:13 Miscellaneous Lab Procedure Comments: Results faxed on 11/22/14- 0275 by JODY .Comments: [id number] PAPTest(s) Ordered: [id number] PAPTest performed at:[facility] [address] [place] [address] [facility] LAB TEST (Normal) Comments: Scanned image report available in EMR 77-Kts-203387:08 CBC With Differential/Platelet Comments: PATIENT WAS FASTINGPERFORMED BY: [employer] Abqhwx2478 [facility] [id number]; [facility] fu - will review with patient then [...] 3.77-5.28 WBC 5.6 {x10E3/uL} (Normal) Range: 3.4-10.8 43-Ota-420961:08 Comp. Metabolic Panel (14) Comments: PATIENT WAS FASTINGPERFORMED BY: [facility] Zwvjih2266 [facility] [id number] ALT (SGPT) 12 [iU]/L (Normal) Range: 0-32 [...] Glucose, Serum 84 mg/dL (Normal) Range: 65-99 58-Okz-803670:08 Lipid Panel With LDL/HDL Comments: PATIENT WAS FASTINGPERFORMED BY: IZEAThe Valley HospitalEyjibk2957 [facility] [id number] Ratio LDL/HDL Ratio 1.3 {ratio_units} Range: 0.0-3.2 [...] ng/mL (Normal) Comments: PATIENT WAS FASTINGPERFORMED BY: IZEAThe Valley HospitalVawhys7170 [facility] [id number] 11:08 Range: 30.0-100.0 Comments: Vitamin D deficiency has been defined by the [place] ofMedicine and an Endocrine Society practice guideline as alevel of serum 25-OH vitamin D less than 20 ng/mL (1,2).The Endocrine Society went on to further define vitamin Dinsufficiency as a level between 21 and 29 ng/mL (2).1. IOM ([place] of Medicine). 2010. Dietary reference intakes for calcium and D. [place]: The National Academies Press.2. Angelo MF, Chin [place], Katy HERRERA, et al. Evaluation, treatment, and prevention of vitamin D deficiency: an Endocrine Society clinical practice guideline. JCEM. 2010; 96(7):1911-30. :36 METABOLIC PANEL, COMPREHENSIVE Comments: PATIENT WAS FASTINGPERFORMED BY: JAMIL IZEA Hhixag1068 [facility] [id number] (05713) ALT (SGPT) 13 [iU]/L (Normal) Range: 0-32 [...] mg/dL (Normal) Range: 65-99 :36 LIPID PANEL (85811) Comments: PATIENT WAS FASTINGPERFORMED BY: JAMIL IZEAThe Valley HospitalSxulml9642 [facility] [id number] LDL/HDL Ratio 1.2 {ratio_units} (Normal) Range: 0.0-3.2 [...] MANUAL DIFF Comments: PATIENT WAS FASTINGPERFORMED BY: [facility]CoThe [facility] HospitalYqkfif7610 [facility] [id number] Information: [id number] (14308) Immature Grans (Abs) 0.0 {x10E3/uL} (Normal) Range: [...] 3.77-5.28 WBC 4.8 {x10E3/uL} (Normal) Range: 3.4-10.8 :36 CALCIFIDIOL (45070) VIT D 25 Comments: PATIENT WAS FASTINGPERFORMED BY: IZEA Fnmste8122 [facility] [id number] Vitamin D, 25-Hydroxy 45.3 ng/mL (Normal) Range: 30.0-100.0 Comments: Vitamin D deficiency has been defined by the [place] ofMedicine and an Endocrine Society practice guideline as alevel of serum 25-OH vitamin D less than 20 ng/mL (1,2).The Endocrine Society went on to further define vitamin Dinsufficiency as a level between 21 and 29 ng/mL (2).1. IOM ([place] of Medicine). 2010. Dietary reference intakes for calcium and D. [place]: The National Academies Press.2. Angelo MF, Chin NC, Katy HERRERA, et al. Evaluation, treatment, and prevention of vitamin D deficiency: an Endocrine Society clinical practice guideline. JCEM. 2010; 96(7):1911-30. 66-Oqc-648043:06 URINE BOOGIE CULTURE-KATHRYN COL Comments: PATIENT NOT FASTINGPERFORMED BY: IZEA Nobsop2704 [facility] [id number] Information: SRC:UR [id number] COUNT (12501) Result 1 NG36 (Normal) Comments: No growth in 36 - 48 hours. Urine Culture,Comprehensive Final report (Normal) 36-Tad-021237:05 Urinalysis, Office (79294) UA - BILIRUBIN Negative (Normal) UA - BLOOD Non Hemolyzed Trace (Normal) UA - GLUCOSE Negative (Normal) UA - KETONES Negative mg/dL (Normal) UA - LEUKOCYTE ESTERASE Negative (Normal) UA - NITRITE Negative (Normal) UA - PH 7.5 (Normal) UA - PROTEIN Trace mg/dL (Normal) UA - SPECIFIC GRAVITY 1.015 (Normal) URINE UROBILINGN KATHRYN TIMED 2 mg/dL (Normal) :06 Metabolic Panel, Comments: PATIENT WAS FASTINGPERFORMED BY: IZEA Afuqxq7690 [facility] [id number] Information: [id number] [facility] (73758) ALT (SGPT) 16 [iU]/L (Normal) Range: 0-32 [...] Glucose, Serum 89 mg/dL (Normal) Range: 65-99 71-Ofn-18430:06 Lipid Panel (45025) Comments: PATIENT WAS FASTINGPERFORMED BY: LabCoThe Valley HospitalGirmel3525 [facility] [id number] LDL/HDL Ratio 1.2 {ratio_units} (Normal) Range: 0.0-3.2 LDL Cholesterol Calc 131 mg/dL (Abnormal) Range: 0-99 VLDL Cholesterol Esau 11 mg/dL (Normal) Range: 5-40 HDL Cholesterol 107 mg/dL (Normal) Comments: According to ATP-III Guidelines, HDL-C >59 mg/dL is considered anegative risk factor for CHD. Cholesterol, Total 249 mg/dL (Abnormal) Range: 100-199 Triglycerides 57 mg/dL (Normal) Range: 0-149 :06 Homocysteine, Plasma (87613) Comments: PATIENT WAS FASTINGPERFORMED BY: [facility]6370 [facility] [id number] Homocyst(e)ine, Plasma 7.4 umol/L (Normal) Range: 0.0-15.0 :06 CALCIFIDIOL (60058) VIT D 25 Comments: PATIENT WAS FASTINGPERFORMED BY: [facility]6370 [facility] [id number] Vitamin D, 25-Hydroxy 24.9 ng/mL (Abnormal) Range: 30.0-100.0 Comments: Vitamin D deficiency has been defined by the [place] ofMedicine and an Endocrine Society practice guideline as alevel of serum 25-OH vitamin D less than 20 ng/mL (1,2).The Endocrine Society went on to further define vitamin Dinsufficiency as a level between 21 and 29 ng/mL (2).1. IOM ([place] of Medicine). 2010. Dietary reference intakes for calcium and D. [place]: The National Academies Press.2. Angelo MF, Chin [place], Katy HERRERA, et al. Evaluation, treatment, and prevention of vitamin D deficiency: an Endocrine Society clinical practice guideline. JCEM. 2010; 96(7):1911-30. 07-Iuq-511060:00 Microscopic Examination Comments: PATIENT WAS FASTINGPERFORMED BY: [facility]6370 [facility] [id number] Bacteria Few (Normal) Mucus Threads Present (Normal) Epithelial Cells (non renal) >10 {/hpf} (Abnormal) Range: 0 - 10 RBC 0-3 {/hpf} (Normal) Range: 0 - 3 WBC 11-30 {/hpf} (Abnormal) Range: 0 - 5 95-Otr-65724:51 BILAT SCRN DIGITAL & CAD Radiology Report [...] Walton D.O.August 20, 2011 at 2:53:02 PM [phone] Signed BB/BB If you are the refe rring physician and would like to consult with theradiologist who provided this interpretation, please contact Ye Jarvis at . If this radiologist is unavailable, youwill be direc huong to another radiologist to assist. If you are a patient with a question regarding this report, pleasecontactyour referring physician directly. Professional Interpretation Provided By: [facility] , Dictated on 08/20/11 1024 by Rajat Walton DOTranscribed on 08/20/112053 by ITS IMPORTSign by Rajat Walton DO on 08/20/112054 Sign by: Rajat Walton DO 53-Fhb-03869:51 DEXA BONE DENSITY STUDY (HP) Radiology Report [...] D.O.August 22, 2011 at 12:09: 10 PM [phone] Signed BB/BB If you are the referring physician and would like to consult with theradiologist who provided this interpretation, please contact Ye Jarvis t . If this radiologist is unavailable, youwill be directed to another radiologist to assist. If you are a patient with a question regarding this report, pleasecontactyour referring physic shaun directly. Professional Interpretation Provided By: [employer], Phone , Dictated on 08/20/11 0957 by Rajat Walton DOTranscribed on 08/22/11 1501 by ITS IMPORTSign by Rajat Walton DO on 08/22/11 1502 Sign by: Rajat Walton DO 08-Ycq-575349:19 Renal function Panel Comments: PATIENT NOT FASTINGPERFORMED BY: [facility] Ibzcpm9658 [facility] [id number] Information: [id number] (62045) Albumin, Serum 4.4 g/dL (Normal) Range: 3.5-5.5 [...] Glucose, Serum 84 mg/dL (Normal) Range: 65-99 19-Alk-583571:00 URINALYSIS, W/ MICRO (47802) Comments: PATIENT WAS FASTINGPERFORMED BY: [employer] Bexmnk7890 [facility] [id number] Microscopic Examination See below: (Normal) Nitrite, Urine Negative (Normal) Urobilinogen,Semi-Qn 0.2 mg/dL (Normal) Range: 0.0-1.9 Bilirubin Negative (Normal) Occult Blood Negative (Normal) Ketones Negative (Normal) Glucose Negative (Normal) Protein Negative (Normal) WBC Esterase 2+ (Abnormal) Appearance Clear (Normal) Urine-Color Yellow (Normal) pH 7.0 (Normal) Range: 5.0-7.5 Specific Clarks 1.012 (Normal) Range: 1.005-1.030 00-Mrf-546859:00 METABOLIC PANEL, COMPREHENSIVE Comments: PATIENT WAS FASTINGPERFORMED BY: [employer] Wpmdwa7633 [facility] [id number] (56658) ALT (SGPT) 17 [iU]/L (Normal) Range: 0-40 [...] Glucose, Serum 89 mg/dL (Normal) Range: 65-99 81-Xla-340149:00 LIPID PANEL (78666) Comments: PATIENT WAS FASTINGPERFORMED BY: [employer]6370 [facility] [id number] LDL/HDL Ratio 1.3 {ratio_units} (Normal) Range: 0.0-3.2 LDL Cholesterol Calc 120 mg/dL (Abnormal) Range: 0-99 VLDL Cholesterol Esau 20 mg/dL (Normal) Range: 5-40 HDL Cholesterol 92 mg/dL (Normal) Comments: According to ATP-III Guidelines, HDL-C >59 mg/dL is considered anegative risk factor for CHD. Triglycerides 100 mg/dL (Normal) Range: 0-149 Cholesterol, Total 232 mg/dL (Abnormal) Range: 100-199 28-Hdz-620832:00 CBC WITH MANUAL DIFF Comments: PATIENT WAS FASTINGPERFORMED BY: [employer]6370 [facility] [id number] Information: [id number] (62157) Immature Grans (Abs) 0.0 {x10E3/uL} (Normal) Range: [...] Microscopic Examination Comments: PATIENT WAS FASTINGPERFORMED BY: [employer] Odobiu1667 [facility] [id number] Bacteria Few (Normal) Mucus Threads Present (Normal) Epithelial Cells (non renal) >10 {/hpf} (Abnormal) Range: 0 - 10 RBC 0-3 {/hpf} (Normal) Range: 0 - 3 WBC 0-5 {/hpf} (Normal) Range: 0 - 5 :35 URINALYSIS, W/ MICRO (63195) Comments: PATIENT WAS FASTINGPERFORMED BY: [employer] Ivqoig7890 [facility] [id number] Microscopic Examination See below: (Normal) Microscopic Examination MICRON (Normal) Comments: Microscopic follows if indicated. Nitrite, Urine Negative (Normal) Urobilinogen,Semi-Qn 0.2 mg/dL (Normal) Range: 0.0-1.9 Bilirubin Negative (Normal) Occult Blood Negative (Normal) Ketones Negative (Normal) Glucose Negative (Normal) Protein Trace (Normal) WBC Esterase Negative (Normal) Appearance Clear (Normal) Urine-Color Yellow (Normal) pH 7.5 (Normal) Range: 5.0-7.5 Specific Clarks 1.021 (Normal) Range: 1.005-1.030 :35 METABOLIC PANEL, COMPREHENSIVE Comments: PATIENT WAS FASTINGPERFORMED BY: [employer]6370 [facility] [id number] (40326) ALT (SGPT) 21 [iU]/L (Normal) Range: 0-40 [...] Glucose, Serum 87 mg/dL (Normal) Range: 65-99 49-Spj-71149:35 LIPID PANEL (18052) Comments: PATIENT WAS FASTINGPERFORMED BY: [employer] Zhsmhi8654 [facility] [id number] LDL/HDL Ratio 1.3 {ratio_units} (Normal) Range: 0.0-3.2 LDL Cholesterol Calc 130 mg/dL (Abnormal) Range: 0-99 VLDL Cholesterol Esau 13 mg/dL (Normal) Range: 5-40 HDL Cholesterol 102 mg/dL (Normal) Comments: According to ATP-III Guidelines, HDL-C >59 mg/dL is considered anegative risk factor for CHD. Triglycerides 63 mg/dL (Normal) Range: 0-149 Cholesterol, Total 245 mg/dL (Abnormal) Range: 100-199 23-Ses-40913:35 CBC WITH MANUAL DIFF Comments: PATIENT WAS FASTINGPERFORMED BY: LabCoThe Valley HospitalYhwzwj9216 [facility] [id number] Information: [id number] (04710) Immature Grans (Abs) 0.0 {x10E3/uL} (Normal) Range: [...] 3.80-5.10 WBC 4.7 {x10E3/uL} (Normal) Range: 4.0-10.5 06-Nov-20109:42 Urinalysis, Office (96298) UA - BILIRUBIN Negative (Normal) UA - BLOOD Hemolyzed Trace (Normal) UA - GLUCOSE Negative (Normal) UA - KETONES Negative mg/dL (Normal) UA - LEUKOCYTE ESTERASE Negative (Normal) UA - NITRITE Negative (Normal) UA - PH 7.0 (Normal) UA - PROTEIN Negative mg/dL (Normal) UA - SPECIFIC GRAVITY 1.015 (Normal) URINE UROBILINGN KATHRYN TIMED 2 mg/dL (Normal) 90-Lvw-375988:01 BILAT SCRN DIGITAL & CAD Radiology Report [...] 08/15/10 1103 Sign by: Justice Gerardo MD 5-Qpl-148510:49 MYOCARD PERF STRESS/[facility] Rad[facility] Report See Note (Normal) Comments: EXERCISE MYOCARDIAL PERFUSION SCAN A 60-year-old lady with a history of atypical chest pain. ARGVIQIIS05.0 mCi of Sestamibi was injected at rest. [...] ejection fraction. Dictated on 08/06/10 1029 by Corrine Drake MDlTranscribed on 08/06/10 1249 by Royce DEMPSEY by Johann Drake MD on 08/06/10 8517 Sign by: Johann Drake MD 80-Lur-41861:16 HEPATIC FUNCTION PANEL Comments: PATIENT WAS FASTINGPERFORMED BY: [facility]6370 [facility] [id number] Information: [id number] (89694) ALT (SGPT) 22 [iU]/L (Normal) Range: 0-40 AST (SGOT) 21 [iU]/L (Normal) Range: 0-40 Alkaline Phosphatase, S 75 [iU]/L (Normal) Range: 25-150 Bilirubin, Direct 0.13 mg/dL (Normal) Range: 0.00-0.40 Bilirubin, Total 0.4 mg/dL (Normal) Range: 0.0-1.2 Albumin, Serum 4.2 g/dL (Normal) Range: 3.5-5.5 Protein, Total, Serum 6.5 g/dL (Normal) Range: 6.0-8.5 :16 Lipid Panel (12287) Comments: PATIENT WAS FASTINGPERFORMED BY: IZEAThe Valley HospitalXgvhci9220 [facility] [id number] LDL/HDL Ratio 1.4 {ratio_units} (Normal) Range: 0.0-3.2 [...] HIGH SENS(hsCRP) Comments: PATIENT WAS FASTINGPERFORMED BY: [facility]6370 [facility] [id number] (07829) C-Reactive Protein, Cardiac 12.60 mg/L (Abnormal) Range: 0.00-3.00 Comments: Relative Risk for Future Cardiovascular Event Low <1.00 Average 1.00 - 3.00 High >3.00 :16 Homocysteine, Plasma (42050) Comments: PATIENT WAS FASTINGPERFORMED BY: [facility]6370 [facility] [id number] Homocyst(e)ine, Plasma 7.8 umol/L (Normal) Range: 0.0-15.0 03-Wtu-045781:35 URINE BOOGIE CULTURE-KATHRYN COL Comments: PATIENT NOT FASTINGPERFORMED BY: [facility]6370 [facility] [id number] Information: SRC: [id number] COUNT (27103) Result 1 VIRIST (Normal) Comments: Viridans streptococcus group1,000 Colonies/mLSusceptibility not normally performed on this organism. Urine Final report (Normal) Culture,Comprehensive 14-Bnp-095586:30 ABDOMEN/PELVIS WITH CONTRAST Radiology Report See Note [...] on 03/15/10 1412 Sign by: Justice Gerardo 3-Vib-174692:27 Thin prep Pap Comments: Source.............Cervical;EndocervicalNo. of containers..01 CYTYC Thin Prep VialPATIENT NOT FASTINGPERFORMED BY: LabCo[address] [id number] Information: [id number] (46323) Note: PAPSMR (Normal) Comments: The Pap smear [...] (endocervical component) are present.V70.0 ; Routine general [facility] Referral [facility]n (ASCP) 1-Psy-827828:12 Urinalysis, Office (83550) UA - LEUKOCYTE ESTERASE Negative (Normal) UA - NITRITE Negative (Normal) URINE UROBILINGN KATHRYN TIMED Normal mg/dL (Normal) UA - PROTEIN Negative mg/dL (Normal) UA - PH 7.5 (Normal) UA - BLOOD Hemolyzed Trace (Normal) UA - SPECIFIC GRAVITY 1.015 (Normal) UA - KETONES Negative mg/dL (Normal) UA - BILIRUBIN Negative (Normal) UA - GLUCOSE Negative (Normal) 76-Tvo-379236:56 BILAT SCRN DIGITAL & CAD Radiology Report See Note (Normal) Comments: Exam Number: [id number] MAMMOGRAPHY - BILATERAL SCREENING INDICATION:Routine annual screening [...] of attaching a ResultCode to this exam.ADDENDUM: [id number] HPBI/MDS Reported By: JUSTICE GERARDO 27-Jul-2009 C-Reactive Protein, 9.8 mg/L Comments: PATIENT WAS FASTINGPERFORMED BY: LabCoThe Valley HospitalPeaqiq3065 [facility] [id number] 9:00 Quant (Abnormal) Range: 0.0-4.9 07-Zvq-01823:00 CBC With Differential/Platelet Comments: PATIENT WAS FASTINGPERFORMED BY: LabCoThe Valley HospitalVwaexl5701 [facility] [id number] Baso (Absolute) 0.0 {x10E3/uL} (Normal) Range: 0.0-0.2 [...] 3.80-5.10 WBC 4.2 {x10E3/uL} (Normal) Range: 4.0-10.5 :00 Comp. Metabolic Panel (14) Comments: PATIENT WAS FASTINGPERFORMED BY: [facility] [id number] A/G Ratio 1.9 (Normal) Range: 1.1-2.5 Alkaline [...] With LDL/HDL Comments: PATIENT WAS FASTINGPERFORMED BY: [facility] [id number] Ratio HDL Cholesterol 112 mg/dL (Normal) Comments: [...] COMMNT (Normal) Comments: PATIENT WAS FASTINGPERFORMED BY: [employer] Rqvqlz4301 [facility] [id number] :00 Comments: Test not indicated.IF TESTING IS REQUESTED ON URINE CULTURE TUBE PLEASE CONTACTLAB WITHIN 3 DAYS.A urine culture transport was received with no test indicated. Iftesting is required on this specimen, pl ease contact the [facility] Inquiry/[facility]ical Services Department to obtain a Request forWritten Authorization Form. :00 Urinalysis, Routine Comments: PATIENT WAS FASTINGPERFORMED BY: [employer] Mqjgsl0079 [facility] [id number] Microscopic Examination MICRON (Normal) Comments: Microscopic follows if indicated. Bilirubin Negative (Normal) Nitrite, Urine Negative (Normal) Occult Blood Negative (Normal) Urobilinogen,Semi-Qn 0.2 mg/dL (Normal) Range: 0.0-1.9 Glucose Negative (Normal) Ketones Negative (Normal) Protein Negative (Normal) Appearance Clear (Normal) pH 7.5 (Normal) Range: 5.0-7.5 Urine-Color Yellow (Normal) WBC Esterase Negative (Normal) Specific Clarks 1.011 (Normal) Range: 1.005-1.030 Vitamin D, 25-Hydroxy 39.3 ng/mL (Normal) Comments: PATIENT WAS FASTINGPERFORMED BY: [facility]6370 [facility] [id number] :00 Range: 32.0-100.0 Comments: Recent studies consider the lower limit of 32.0 ng/mL to be athreshold for optimal health.Mike ESCOBAR. J Nutr. 2004;135(2):317-22. 39-Pem-148561:47 Urinalysis, Office (24740) UA - LEUKOCYTE ESTERASE Negative (Normal) UA - NITRITE Positive (Normal) URINE UROBILINGN KATHRYN TIMED 2 mg/dL (Normal) UA - PROTEIN Negative mg/dL (Normal) UA - PH 6.5 (Normal) UA - BLOOD Hemolyzed Trace (Normal) UA - SPECIFIC GRAVITY 1.015 (Normal) UA - KETONES Negative mg/dL (Normal) UA - BILIRUBIN Negative (Normal) UA - GLUCOSE Negative (Normal) 5-Uir-814143:51 URINE BOOGIE CULTURE-KATHRYN COL Comments: PATIENT NOT FASTINGPERFORMED BY: [facility] Ffnwru3485 [facility] [id number] Information: SRC:ZARI [id number] COUNT (69629) Antimicrobial MIHEAD (Normal) Comments: S = Susceptible; I = Intermediate; R = Resistant P = Positive; N = NegativeMICS are expressed in micrograms per mLAntibiotic RSLT#1 RSLT#2 RSLT#3 RSLT#4Am oxicillin/Cl Susceptibility avulanic Acid SAmpicillin SCefepime SCeftriaxone SCefuroxime SCephalothin SCiprofloxacin SESBL NGentamicin SImipenem SLevofloxacin SNitrofurantoin SPiperacillin/Tazobactam Elias tracycline STobramycin STrimethoprim/Sulfa S Result 1 Escherichia coli Comments: 25,000-50,000 colony forming units per mL (Normal) Urine Final report (Normal) Culture,Comprehensive 1-Mac-165914:36 Urinalysis, Office (99517) UA - LEUKOCYTE ESTERASE Moderate (Normal) UA - NITRITE Negative (Normal) URINE UROBILINGN KATHRYN TIMED Normal mg/dL (Normal) UA - PROTEIN Negative mg/dL (Normal) UA - PH 6.0 (Normal) UA - BLOOD Hemolyzed Moderate (Normal) UA - SPECIFIC GRAVITY 1.010 (Normal) UA - KETONES Negative mg/dL (Normal) UA - BILIRUBIN Negative (Normal) UA - GLUCOSE Negative (Normal) 92-Hxs-22628:19 URINE BOOGIE CULTURE-KATHRYN COL Comments: PATIENT NOT FASTINGClinical Information: SRC:UR [id number] PERFORMED BY: JAMIL [facility] Gyhqov2411 [facility] [id number] COUNT (97311) Result 1 Lactobacillus species Comments: 50,000-100,000 colony forming units per mL (Normal) Urine Final report (Normal) Culture,Comprehensive 04-Tco-334507:56 Urinalysis, Office (56603) UA - BILIRUBIN Small (Normal) UA - [...] Report See Note (Normal) Comments: Exam Number: [id number] CLINICAL:Shortness of breath and back pain. CTA [...] 25-Hydroxy 49.7 ng/mL (Normal) Comments: PERFORMED BY: [employer] [employer] [place] [id number] :01 Range: 32.0-100.0 Comments: Recent studies consider the lower limit of 32.0 ng/mL to be athreshold for optimal health.[facility]. J Nutr. 2004;135(2):317-22. 8-Ant-697116:14 CALCIFIDIOL (11147) VIT D 25 Comments: PATIENT WAS FASTINGClinical Information: ADD [id number] PERFORMED BY: [employer] [place] [id number] Vitamin D, 25-Hydroxy 39.1 ng/mL (Normal) Range: 32.0-100.0 Comments: Recent studies consider the lower limit of 32.0 ng/mL to be athreshold for optimal health.[facility]. J Nutr. 2004;135(2):317-22. 7-Teb-282195:14 CALCIUM SERUM (37749) Comments: PATIENT WAS FASTINGPERFORMED BY: [employer]6370 [employer] [place] [id number] Calcium, Serum 9.5 mg/dL (Normal) Range: 8.5-10.6 2-Fwv-905046:14 PARATHORMONE (70210) Comments: PATIENT WAS FASTINGPERFORMED BY: [employer] [place] [id number] PTH, Intact 28 pg/mL (Normal) Range: 15-65 14-Pfb-21637:28 BONE SCAN WHOLE BODY Radiology Report See Note (Normal) Comments: Exam Number: [id number] CLINICAL DATAAbnormal lesion at the left iliac [...] Report See Note (Normal) Comments: Exam Number: [id number] CLINICAL DATAAbnormal lesion left iliac area seen [...] mg/dL VLDL 14 mg/dL (Normal) Range: 5-40 09-Aug-20088:33 VIT D,25 33950 25.8 ng/mL (Abnormal) Range: 32.0-100.0 Comments: Recent studies consider the lower limit of 32.0 ng/mL to mela threshold for optimal health.Mike ESCOBAR. J Nutr. 2004;135(2):317-22.Performed At: [facility]6[address] [place], [place] [id number] 91-Szl-302897:49 Urinalysis, Office (58866) UA - BILIRUBIN Negative (Normal) UA - BLOOD Hemolyzed Trace (Normal) UA - GLUCOSE Negative (Normal) UA - KETONES Negative mg/dL (Normal) UA - LEUKOCYTE ESTERASE Negative (Normal) Comments: aw UA - NITRITE Negative (Normal) UA - PH 6.0 (Normal) UA - PROTEIN Negative mg/dL (Normal) UA - SPECIFIC GRAVITY 1.010 (Normal) URINE UROBILINGN KATHRYN TIMED Normal mg/dL (Normal) 5-Tql-764306:41 POST VOID RESIDUAL BLADDER Radiology Report See Note (Normal) Comments: Exam Number: [id number] ULTRASOUND OF THE KIDNEYS/POST VOID RESIDUAL URINARY [...] Urinary bladder demonstrates a postvoid residual of rcmqjzonzzxaq14 cc. Reported By: JOANNE STORY M.D. :21 KIDNEY Radiology Report See Note (Normal) Comments: Exam Number: [id number] ULTRASOUND OF THE KIDNEYS/POST VOID RESIDUAL URINARY [...] Urinary bladder demonstrates a postvoid residual of bltnennmfcamu12 cc. Reported By: JOANNE STORY M.D. 01-Feb-20088:49 Urinalysis, Office (77310) UA - BILIRUBIN Negative (Normal) UA - BLOOD Hemolyzed Trace (Normal) UA - GLUCOSE Negative (Normal) UA - KETONES Negative mg/dL (Normal) UA - LEUKOCYTE ESTERASE Trace (Normal) UA - NITRITE Negative (Normal) UA - PH 7.0 (Normal) UA - PROTEIN Negative mg/dL (Normal) UA - SPECIFIC GRAVITY 1.010 (Normal) URINE UROBILINGN KATHRYN TIMED Normal mg/dL (Normal) 81-Ygq-03826:45 Urinalysis, Office (95431) UA - BILIRUBIN Negative (Normal) UA - BLOOD Non Hemolyzed Trace (Normal) UA - GLUCOSE Negative (Normal) UA - KETONES Negative mg/dL (Normal) UA - LEUKOCYTE ESTERASE Negative (Normal) UA - NITRITE Negative (Normal) UA - PH 6.5 (Normal) UA - PROTEIN Negative mg/dL (Normal) UA - SPECIFIC GRAVITY 1.000 (Normal) URINE UROBILINGN KATHRYN TIMED Normal mg/dL (Normal) 5-Xwe-206989:50 Urinalysis, Office (87665) UA - BILIRUBIN Negative (Normal) UA - BLOOD Hemolyzed Trace (Normal) UA - GLUCOSE Negative (Normal) UA - KETONES Negative mg/dL (Normal) UA - LEUKOCYTE ESTERASE Negative (Normal) UA - NITRITE Negative (Normal) UA - PH 7.0 (Normal) UA - PROTEIN Negative mg/dL (Normal) UA - SPECIFIC GRAVITY 1.000 (Normal) URINE UROBILINGN KATHRYN TIMED Normal mg/dL (Normal) :48 ELBOW,MIN 3 VIEWS Radiology Report See Note (Normal) Comments: Exam Number: [id number] RIGHT ELBOW 3 VIEWS CLINICAL STATEMENTFell off couch, pain. There is no fracture visible. Joint spaces are maintained with normalalignment. Fat pads are visible ante riorly but n ot elevatedposteriorly. IMPRESSIONNormal study. Reported By: ETHEL MONDRAGON M.D. :47 FOREARM,2 VIEWS Radiology Report See Note (Normal) Comments: Exam Number: [id number] RIGHT FOREARM - 2 VIEWS. CLINICAL STATEMENTPain. Fell off couch. FINDINGSRoutine views show no fracture, dislocation, joint abnormality, orsoft tissue calcification. IMPRESSIONNo rmal examination of the right forearm. Reported By: ETHEL MONDRAGON M.D. :47 WRIST,MIN 3 VIEWS Radiology Report See Note (Normal) Comments: Exam Number: [id number] RIGHT WRIST - 3 VIEWS. CLINICAL STATEMENTPain. Fell off cough. FINDINGSThere is no fracture. Joint spaces are maintained and normallyaligned. No erosion or soft tissue calcific ation is evident. IMPRESSIONNormal study. Reported By: ETHEL MONDRAGON M.D. :02 Thin prep Pap (99909) Comments: LMP / Prev Treat...NRD=[id number]. of containers..01 CYTYC Thin Prep VialPATIENT NOT FASTINGClinical Information: [id number] PERFORMED BY: LabJason [place] [address] [address] [facility] [id number] . . (Normal) DIAGNOSIS: SPRCS (Normal) Comments: NEGATIVE FOR INTRAEPITHELIAL LESION AND MALIGNANCY.Satisfactory for evaluation. Endocervical and/or squamous metaplasticcells (endocervical component) are present.V72.31 ; Routine gynecolog ical examina Hermes Hernandez, Supervisory Referral Rn (ASCP) Note: PAPSMR (Normal) Comments: The Pap [...] resulttherefore, no HPV testing was performed. . 38-Yox-00588:29 BILAT SCRN DIGITAL & CAD Radiology Report See Note (Normal) Comments: Exam Number: [id number] BILATERAL SCREENING DIGITAL MAMMOGRAM CLINICAL INFORMATIONScreening. Bilateral [...] The mammogramswere also examined with computer-aided detection software([employer], [employer] Reported By: JOANNE STORY M.D. 1-Cru-986161:06 Urine Culture,Comprehensive Comments: Clinical Information: SRC:UR PERFORMED BY: JAMIL IZEA Ceeiyc5120 [facility] [id number] Result 1 MUG (Normal) Comments: Mixed urogenital fcdof429 Colonies/mL Urine Culture,Comprehensive Final report (Normal) 03-Jul-20078:43 Microscopic Examination Comments: PATIENT WAS FASTINGPERFORMED BY: JAMIL OpsensAshvin Socvtu0163 [facility] [id number] Bacteria None seen (Normal) Crystal Type Amorphous Sediment (Normal) Crystals Present (Abnormal) Epithelial Cells (non renal) 0-10 {/hpf} (Normal) Range: 0 - 10 Mucus Threads Present (Abnormal) RBC 0-3 {/hpf} (Normal) Range: 0 - 3 WBC 11-30 {/hpf} (Abnormal) Range: 0 - 5 :43 Urinalysis, Routine Comments: PATIENT WAS FASTINGPERFORMED BY: [facility] [id number] Appearance Clear (Normal) Bilirubin Negative (Normal) Glucose Negative (Normal) Ketones Negative (Normal) Microscopic Examination See below: (Normal) Nitrite, Urine Negative (Normal) Occult Blood Negative (Normal) pH 7.0 (Normal) Range: 5.0-7.5 Protein Trace (Normal) Specific Clarks 1.025 (Normal) Range: 1.005-1.030 Urine-Color Yellow (Normal) Urobilinogen,Semi-Qn 0.2 mg/dL (Normal) Range: 0.0-1.9 WBC Esterase 1+ (Abnormal) :43 CBC (Auto) (85401) Comments: PATIENT WAS FASTINGPERFORMED BY: [employer]70 [place] [facility] [id number] Hematocrit 40.9 % (Normal) Range: 34.0-44.0 Hemoglobin 13.8 g/dL (Normal) Range: 11.5-15.0 MCH 30.1 pg (Normal) Range: 27.0-34.0 MCHC 33.6 g/dL (Normal) Range: 32.0-36.0 MCV 90 fL (Normal) Range: 80-98 Platelets 313 {x10E3/uL} (Normal) Range: 140-415 RBC 4.57 {x10E6/uL} (Normal) Range: 3.80-5.10 RDW 14.2 % (Normal) Range: 11.7-15.0 WBC 5.2 {x10E3/uL} (Normal) Range: 4.0-10.5 :43 Metabolic Panel, Comprehensive Comments: PATIENT WAS FASTINGPERFORMED BY: [employer]70 [facility] [id number] (61037) A/G Ratio 1.7 (Normal) Range: 1.1-2.5 Albumin, [...] Serum 75 mg/dL (Normal) Range: 65-99 If -Mauritian >60 mL/min (Normal) Range: 60-128 Comments: Note: [...] Sodium, Serum 142 mmol/L (Normal) Range: 135-145 03-Jul-20078:43 Lipid Panel (01733) Comments: PATIENT WAS FASTINGPERFORMED BY: LabCoThe Valley HospitalJowgon2761 [facility] [id number] Cholesterol, Total 245 mg/dL (Abnormal) Range: 100-199 Comment SPRCS (Normal) Comments: If initial LDL-cholesterol result is >100 mg/dL, assess forrisk factors. HDL Cholesterol 99 mg/dL (Abnormal) Range: 40-59 Comments: HDL cholesterol values >59 mg/dL are associated with reduced cardiacrisk. LDL Cholesterol Calc 133 mg/dL (Abnormal) Range: 0-99 LDL/HDL Ratio 1.3 {ratio_units} (Normal) Range: 0.0-3.2 Triglycerides 66 mg/dL (Normal) Range: 0-149 VLDL Cholesterol Esau 13 mg/dL (Normal) Range: 5-40 78-Kca-085151:47 Urinalysis, Office (38943) UA - BILIRUBIN Negative (Normal) UA - BLOOD Non Hemolyzed Trace (Normal) UA - GLUCOSE Negative (Normal) UA - KETONES Negative mg/dL (Normal) UA - LEUKOCYTE ESTERASE Negative (Normal) Comments: aw UA - NITRITE Negative (Normal) UA - PH 7.0 (Normal) UA - PROTEIN Negative mg/dL (Normal) UA - SPECIFIC GRAVITY 1.005 (Normal) URINE UROBILINGN KATHRYN TIMED Normal mg/dL (Normal) 28-Wuy-431470:02 Urinalysis, Office (42228) UA - BILIRUBIN Negative (Normal) UA - BLOOD Non Hemolyzed Trace (Normal) UA - GLUCOSE Negative (Normal) UA - KETONES Negative mg/dL (Normal) UA - LEUKOCYTE ESTERASE Moderate (Normal) UA - NITRITE Negative (Normal) UA - PH 6.0 (Normal) UA - PROTEIN Negative mg/dL (Normal) UA - SPECIFIC GRAVITY 1.010 (Normal) URINE UROBILINGN KATHRYN TIMED 2 mg/dL (Normal) 16-Yma-44222:45 Urinalysis, Office (37590) UA - BILIRUBIN Negative (Normal) UA - [...] ORDER RECEIVED ON FAX MACHINE 10/15/06 @ 7906 JUST PRIOR TOURINES FROM 10/14/06 BEING DISCARDED. [...] Report See Note (Normal) Comments: Exam Number: [id number] 4 VIEWS OF THE RIGHT KNEE AP, [...] Report See Note (Normal) Comments: Exam Number: [id number] 4 VIEWS OF THE RIGHT KNEE AP, [...] mg/dL VLDL 6 mg/dL (Normal) Range: 5-40 99-Uwo-342222:27 C-REACTIVE PROT 16.90 mg/L (Abnormal) Range: 0.0-6.0 Comments: Test performed using the Dimension C-Reactive ProteinExtended Range assay method. This assay meets the AHA/CDC 2003 recommendations fordetermining patients at high risk for cardiovasculardisease. Reference: High risk CRP >3.0 mg/L 35-Elq-833437:27 CBCD,SMEAR DIFF BASOPHIL 1 % (Normal) Range: [...] 47-70 WBC 4.6 K/mm3 (Normal) Range: 4.4-11.0 92-Jmu-849076:27 ESR SED RATE 7 mm/h (Normal) Range: [...] (I)) Planned Observations CBC with auto diff ([id number])Indication: Benign essential hypertension On: :28 Request METABOLIC PANEL, COMPREHENSIVE ([id number])Indication: Benign essential hypertension On: :28 Request Thin Prep Pap ([id number])Indication: Screening for cervical cancer On: 14-Oxo-130609:00 Request Renal function Panel ([id number])Indication: Benign essential hypertension On: 3-Rwe-067767:12 Request Thin Prep Pap ([id number])Indication: Screening for cervical cancer On: 09-Mpi-64689:03 Request Thin Prep Pap ([id number])Indication: Well woman exam On: 10-Aqn-55251:51 Request CALCIFIDIOL ([id number]) VIT D 25Indication: Vitamin D deficiency, unspecified On: :28 Request METABOLIC PANEL, COMPREHENSIVE ([id number])Indication: Benign essential hypertension On: :28 Request LIPID PANEL ([id number])Indication: Benign essential hypertension On: :28 Request CBC W/AUTO DIFF WBC ([id number])Indication: Benign essential hypertension On: :28 Request Urinalysis, Office ([id number])Indication: Dysuria On: :27 Request CBC (Auto) ([id number])Indication: Elevated blood-pressure reading without diagnosis of hypertension On: :23 Request CALCIFIDIOL ([id number]) VIT D 25 On: :23 Request Lipid Panel ([id number])Indication: Elevated blood-pressure reading without diagnosis of hypertension On: 5-Jrd-989304:23 Request Metabolic Panel, Comprehensive ([id number])Indication: Elevated blood-pressure reading without diagnosis of hypertension On: 3-Yzf-460970:23 Request URINALYSIS W MICROSCOPY ([id number])Indication: Dysuria On: 3-Fxw-597524:50 Request URINALYSIS ([id number])Indication: Hypercholesterolemia On: 0-Tnr-054560:21 Request Metabolic Panel, Comprehensive ([id number])Indication: Hypercholesterolemia On: :47 Request Lipid Panel ([id number])Indication: Hypercholesterolemia On: :47 Request Planned Encounters Medical; [facility] 3 Month FU - On: 26-Mar-2018 10:00 [facility] Jovanny HORNER, Mónica Gatica MD Planned Procedures Radiology - Knee - Right - Weight On: 17-Feb-2018 Intent BearingBy: Mónica Petty MD Comments: call with wet read Mónica HORNER MAMMOGRAM BREAST LEFT DIAGNOSTIC On: 11-Nov-2017 Intent ([id number])By: Mónica Petty MD, MD, Dana M LEFT BREAST ULTRASOUND ([id number])By: On: 11-Nov-2017 Intent Mónica Petty MD, MD, Dana M Pap Smear, Medicare ([id number])By: On: 27-Oct-2017 Intent Mónica Petty MD, MD, Dana M ELECTROCARDIOGRAM, COMPLETE (ECG) On: 22-Oct-2016 Intent ([id number])By: Mónica Petty MD Comments: see scanned document of test done to see results reviewed today with patient Mónica HORNER SCREENING DIGITAL TOMOSYNTHESIS OF On: 23-Sep-2016 Intent BREAST ([id number])By: Mónica Petty MD, MD, Dana [place] ([id number])By: Jovanny On: 26-Dec-2015 Mónica Corona MD, MD, Dana M Comments: Lot:[id number]:12/04/16Dose:1mLRoute:sub q Site:[facility] By:KATHRINE signed TD VACCINE ADULT ([id number])By: Jovanny On: 26-Dec-2015 Intent Mónica HORNER MD, Dana M TDAP VACCINE >7 IM ([id number])By: Jovanny On: 26-Dec-2015 Intent Mónica HORNER MD, Dana M Comments: Lot:[id number]:04/13/18Dose:0.5mgRoute:imSite:r arm Given By:KATHRINE signed BILATERAL MAMMOGRAMS ([id number])By: On: 05-Dec-2015 Intent Mónica Petty MD, MD, Dana M MAMMOGRAM, SCREENING, BOTH BREAST On: 20-Oct-2014 Intent ([id number])By: Mónica Petty MD, MD, Dana M Radiology - Knee - LeftBy: Jovanny On: 26-Apr-2014 Intent Mónica HORNER MD, Dana M Kenalog Injection, 10 mgm ([id number])By: On: 17-Mar-2014 Intent Mónica Petty MD, MD, Mónica Mcarthur Kenalog Injection, 10 mgm ([id number])By: On: 17-Mar-2014 Intent Mónica Petty MD, MD, Dana M Kenalog Injection, 10 mgm ([id number])By: On: 17-Mar-2014 Intent Mónica Petty MD, MD, Mónica Mcarthur Kenalog Injection, 10 mgm ([id number])By: On: 17-Mar-2014 Intent Mónica Petty MD, MD, Dana M DEXA SCAN AXIAL SKELETON ([id number])By: On: 19-Oct-2013 Intent Mónica Petty MD, MD, Dana M MAMMOGRAM, SCREENING, BOTH BREASTS On: 22-Apr-2013 Intent ([id number])By: Mónica Petty MD, MD, Dana M Eprescribed prescriptions ([id number])By: On: 22-Apr-2013 Intent Mónica Petty MD, MD, Dana M SPECIMEN HANDLING/TRANSPORT On: 20-Nov-2011 Intent ([id number])By: Mary Lemon LPN ADMNIN, 1 VAC, SNGL/COMBO On: 05-Nov-2011 Intent ([id number])By: Kiera Kim LPN Comments: DECLINED FLU VAC, SPLIT, >3 YEARS, INTRAMUSC On: 05-Nov-2011 Intent ([id number])By: Kiera Kim LPN Comments: DECLINED Spirometry ([id number])By: Jovanny HORNER, On: 07-May-2011 Intent Mónica Gatica MD PNEUM VAC ADLT/IMUMNOSPR, SBC/INTRM On: 07-May-2011 Intent ([id number])By: Mónica Petty MD, MD, Dana M MAMMOGRAM, SCREENING, BOTH BREASTS On: 07-May-2011 Intent ([id number])By: Mónica Petty MD, MD, Dana M DXA, BONE DENSITY, AXIAL SKELETON On: 07-May-2011 Intent ([id number])By: Mónica Petty MD, MD, Dana M Nuclear Stress Test/Stress On: 24-Jul-2010 Intent SPECT/TreadmillBy: Mónica Petty MD, MD, Dana M Echo CompleteBy: Mónica Petty MD On: 24-Jul-2010 Intent Mónica Petty MD MAMMOGRAM, SCREENING, BOTH BREASTS On: 24-Jul-2010 Intent ([id number])By: Mónica Petty MD, MD, Dana M EKG ([id number])By: FLOR Santana On: 24-Jul-[address] - Abdomen & Pelvis (IV Contrast On: 15-Mar-2010 Intent Needed)By: Alma Jansen DO Comments: call wiht wet 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 to 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 concrete technician MAMMOGRAM, SCREENING, BOTH BREASTS On: 07-Aug-2009 Intent ([id number])By: Mónica Petty MD, MD, Dana M CT - ChestBy: Alma Jansen DO On: 02-Nov-2008 Intent Comments: PE PROTOCOL Pulse Oximetry ([id number])By: Inderjit BECK, On: 02-Nov-2008 Intent Alma Bone Density StudyBy: Jovanny HORNER, On: 02-Aug-2008 Intent Mónica Gatica MD Nuclear Medicine - Bone ScanBy: On: 02-Aug-2008 Intent Jovanny HORNER, Mónica Gatica MD Ultrasound - RenalBy: Won Kellen AYERS On: 01-Feb-2008 Intent E SPECIMEN HANDLING/TRANSPORT On: 04-Jan-2008 Intent ([id number])By: Dang Song Radiology - Hand - RightBy: Won On: 22-Oct-2007 Intent Kellen AYERS Radiology - Forearm - RightBy: Won On: 22-Oct-2007 Intent Kellen AYERS MAMMOGRAM, SCREENING, BOTH BREASTS On: 02-Jul-2007 Intent ([id number])By: Mónica Petty MD, MD, Mónica Mcarthur EKG ([id number])By: FLOR Santana On: 02-Jul-2007 Intent Spirometry ([id number])By: Max On: 02-Jul-2007 Intent FLOR Pulse Oximetry ([id number])By: Max On: 02-Jul-2007 Intent FLOR Toradol Injection, 30 mg ([id number])By: On: 04-Sep-2006 Intent Mónica Petty MD, MD, Mónica Mcarthur Solu -Medrol Injection, 125 mg On: 01-Apr-2006 Intent ([id number])By: Mónica Petty MD, MD, Dana M MAMMOGRAM, SCREENING, BOTH BREASTS On: 26-Feb-2006 Intent ([id number])By: Mónica Petty MD, MD, Dana M Planned Medications INJECTION, TRIAMCINOLONE ACETONIDE, NOT OTHERWISE SPECIFIED, 10 MG Ordered: 17-Mar-2014 Pending Mónica Petty MD, MD, Dana M INJECTION, TRIAMCINOLONE ACETONIDE, NOT OTHERWISE SPECIFIED, 10 MG Ordered: 17-Mar-2014 Pending Mónica Petty MD, MD, Dana M INJECTION, TRIAMCINOLONE ACETONIDE, NOT OTHERWISE SPECIFIED, 10 MG Ordered: 17-Mar-2014 Pending Mónica Petty MD, MD, Dana M INJECTION, TRIAMCINOLONE ACETONIDE, NOT OTHERWISE SPECIFIED, 10 MG Ordered: 17-Mar-2014 Pending Mónica Petty MD, MD, Dana M Instructions Name Dates Details Right knee pain : How to access health information online Indication: Right knee pain Right knee pain : How to access health information online - Detail Indication: Right knee pain Right knee pain : Patient Instructions Indication: Right knee pain Current nonsmoker (Renamed from Current non-smoker) : [...] access health information online - Detail Indication: Lobot Lobot : Patient Instructions Indication: Wart BMI 24.0-24.9, [...] Patient Instructions Indication: Benign essential hypertension Encounters Review On: 17-Feb-2018 16:21 Encounter Diagnosis: Right knee pain, BMI 27.0-27.9,adult [facility] Office Visit On: 22-Dec-2017 10:54 Encounter Reason: [...] following up for include other (fu on [place]le).Encounter Diagnosis: BMI 27.0-27.9,adult, Current nonsmoker (Renamed from [...] On: 22-Oct-2016 13:49 Encounter Diagnosis: Bradycardia End: 22-Aug-2017 13:50 [facility] Annotation/Addendum On: 22-Oct-2016 [...] The patient does have durable power of banking attorney and living will. The patient has [...] for Tdap vaccination (Renamed from Need for vobczdvnlv-vywmzaf-gdosouthk (Tdap) vaccine, adult/adolescent), Need for zoster vaccination [...] Woman Exam (V72.31) (Pap,Mammo,Routine Female) (Renamed from Epuls Woman V72.31 (p,m)), Knee pain (719.46) Comprehensive [...] Woman Exam (V72.31) (Pap,Mammo,Routine Female) (Renamed from Epuls Woman V72.31 (p,m)), Chest pain (786.59), Asthma [...] [facility] End: 11-Dec-2005 13:04 [facility] Medicare[facility]etna[facility] Jam [place]; mane guarantor
--- OUTSIDE RECORDS SUMMARY | 2018-05-22 05:29 | XMS RPT_ITS | Continuity of Care Document ---
:1950 Author Organization [facility] Address [address] [facility] [address] [place] [address] Phone Care Team Providers Name Role Phone Mónica Petty MD Unavailable Dr. Junior Boyle Unavailable Yasmin HORNER , Dr. Ishmael Mcarthur Unavailable FLOR Santana Unavailable Unavailable Unavailable Unavailable Problems Name Dates Details Abnormal EKG (R94.31, 794.31) Comments: conduction delay staying now ? rhythm [facility] cardio hard to tell with artifact. [...] phonates severe CP. bd -12 doing vibration machine- last bd Status: Active Parkinson disease, symptomatic (G20, 332.0) Aug-2014 Comments: 12-18 patient off Mirapex and on Sinimet tid and seems to be working bettertrev chavez. doing natural med now with Dr. Will tompkins. Status: Active Pregnancies () Comments: 4 Status: Active Right knee pain (M25.561, 719.46) Comments: pt send for sosa called and review results and DJD no effusion. will do steriod injection since aleve not help Status: Active Screening for cervical cancer (Z12.4, [...] BD 1-16-18, PHQ-9 (2) minimal, 6CIT= mammo -, BD -. pap was 2012. Status: Active Medications Name [...] Refills: 0 Ordered:26-Dec-2015 Mónica Petty MD, MD, Mónica M Start : 26-Dec-2015 Active Sinemet 25-100 [...] days Quantity: 22 {Tablet} Refills: 0 Ordered:08-Mar-2008 Kellen Upton CNP Start : 08-Mar-2008 End : 23-Mar-2008 [...] : 12-Jul-2016 Inactive Comments:12 samples given ERGOCALCIFEROL, 94079USTX (Oral Capsule) 1 Capsule twice weekly for [...] Refills: 6 Ordered:01-Sep-2017 Mónica Petty MD, MD, Dana M Start : 01-Sep-2017 End : 01-Sep-2017 Inactive Comments:bradycardia KEFLEX, 500MG (Oral Capsule) 1 (one) Capsule bid for 7 days Quantity: 14 {Capsule} Refills: 0 Ordered:29-Mar-2010 Kellen Upton CNP Start : 27-Apr-2009 End [...] for Tdap vaccination (Renamed from Need for bckbaadxjp-jakedxf-uyvxwzsit (Tdap) vaccine, adult/adolescent) (Z23, V06.1) Status: Resolved [...] tubal ligation 1977 Completed Date Value Details 17-Feb-2018 Knee 4 or More Views Result: Comments: See Note; NOTES: [facility] Imaging Services [address] [place] [address] Knee 4 or More Views MR#: [id number] Acct: [id number] Name: PARUL HUNTLEY Rep #: [id number] : 1950 F 67 From: Richard Romano MD PCP: Mónica Petty MD Status: REG CLI Study: Knee 4 or More Views Date of Exam: 02/17/18 Exam# [id number] Ordering Dr: Mónica Petty MD STUDY: X-RAY - RIGHT KNEE REASON FOR EXAM: Female, 67 years old. Right knee pain without acute injury. TECHNIQUE: 4 view(s) of the knee. COMPARISON: None. FINDINGS: Osteopeni a. Mild DJD lateral compartment with minimal joint margin osteophytic lipping. Mild to moderate DJD of the medial compartment with joint margin osteophytic lipping slightly more prominent than that seen in the lateral compartment. Very minimal osteophytic lipping about the margins of the patellofemoral joint. No effusion. No fracture. Periarticular soft tissues exhibit no acute process. RAD/Knee 4 or More Views IMPRESSION: Mild tricompartmental DJD. No effusion. No injury. Electronically Signed: Richard Romano MD at 17:49 EST Te l , Service support , CC: Mónica Petty MD Culinary Director: Signed 15-Dec-2017 Oncology Visit Report Result: Comments: See Note; NOTES: [facility] [address] [place] [address] OFFICE VISIT Date of Service: 12/15/17 1053 MR#: [id number] Acct: [id number] Name: AZALIA HUNTLEY Rep #: [id number] : 1950 From: Angle Shin MD Age/Sex: 67/F Location: OMD Status: [...] inv asion. Tumor is ER positive (95%) SC positive (40%) (and HER-2 not overexpressed. Patient [...] right breast grade 2, E R positive, SC positive, HER-2/skylar not overexpressed. Patient is status [...] Angel Shin MD> Date Angel Shin MD Cosign er Signature: Date (if applicable) CC: 17-Nov-2017 Breast Limited Unilateral Result: Comments: See Note; NOTES: [facility] Imaging Services [address] [place] [address] Breast Limited Unilateral MR#: [id number] Acct: [id number] Name: PARUL HUNTLEY Rep # : [id number] : 1950 F 67 From: Justice Gerardo MD PCP: Mónica Petty MD Status: REG CLI Study: Breast Limited Unilateral Date of Exam: 11/17/17 Exam# [id number] Ordering Dr: Mónica Petty MD STUDY: ULTRASOUND [...] Justice Gerardo MD at 8:37 EDT Tel [phone], Service support , Fax CC: Mónica Petty MD Culinary Director: Signed 17-Nov-2017 DIAG MAMM W/CAD, UNILAT Result: Comments: See Note; NOTES: [facility] Imaging Services [address] [place] [address] DIAG MAMM W/CAD, UNILAT MR#: [id number] Acct: [id number] Name: PARUL HUNTLEY Rep #: [id number] : 1950 F 67 From: Justice Gerardo MD PCP: Mónica Petty MD Status: REG CLI Study: DIAG MAMM W/CAD, UNILAT Date of Exam: 11/17/17 Exam# [id number] Ordering Dr: Mónica Petty MD [facility] MOGRAPHY - UNILATERAL DIAGNOSTIC: LEFT BREAST REASON [...] Justice Gerardo MD at 14:13 EDT Tel [phone], Service support , CC: Mónica Petty MD Culinary Director: Signed 06-Nov-[address] w/CCTA Result: Comments: See Note; NOTES: [facility] Imaging Services [address] [place] [address] w/CCTA MR#: [id number] Acct: [id number] Name: PARUL HUNTLEY Rep #: [id number] : 1950 F 67 From: Farhat Montalvo DO PCP: Mónica Petty MD Status: REG CLI Study: Limited Chest CT w/CCTA Date of Exam: 11/06/17 Exam# [id number] Ordering Dr: Mónica Petty MD STUDY: [facility] CALCIUM SCORING - CT CHEST REASON FOR EXAM: Female, 67 years old. Elevated cholesterol. History of breast cancer. RADIATION DOSAGE (If Supplied By Facility): CTDIvol = ( 12.19 ) mGy, DLP = ( 243. 79 ) mGycm TECHNIQUE: Axial non-enhanced images were acquired through the heart for the sole purpose of measuring coronary artery calcium. Individualized dose optimization techniques were used for [facility] s CT. COMPARISON: Chest, January 26, [...] Normal visualized upper abdomen. ORD ER #: [id number] CT/Limited Chest CT w/CCTA IMPRESSION: 1. Status post right mastectomy. 2. There is no intrathoracic abnormality. Electronically Signed: Farhat Montalvo DO at 18:54 EDT Tel [phone], Service support , CC: Mónica Petty MD Culinary Director: Signed 11-Sep-2017 Oncology Visit Report Result: Comments: See Note; NOTES: [facility] [address] [place] [address] [place] [address] OFFICE VISIT Date of Service: 09/11/17 [facility] MR#: [id number] Acct: [id number] Name: AZALIA HUNTLEY Rep #: [id number] : 1950 From: Angel Shin MD Age/Sex: [...] lymphovascular invasion. Tumor is ER positive (95%) SC positive (40%) (and HER-2 not overexpresse d. Patient made an uneventful recovery from her surgery. Oncotype DX testing showed her to be at low risk group with a score of 13. Her past medical history is notable for Parkinson's disease, hyperte nsion and vitamin D deficiency state. No family history of breast cancer Treatment: 1- February 12, 2017 she underwent a right [...] the right breast grade 2, ER positive, SC positive, HER-2/skylar not overexpressed. Patient is status [...] Visit Report Result: Comments: See Note; NOTES: [facility] [address] [place], [place] [address]. 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) Coding Level of Care Code Off vis,est,level 3 Diagnoses Essential hypertension I10 Hypertension type: essential hypertension Coding Level of Care Code Off vis,est,leve l 3 Diagnoses Essential hypertension I10 Hypertension type: essential hypertension 08/22/17 1055 <Electronically signed by Johann Drake MD> Date Johann Drake MD Cosigner Signature: Date (if applicable) CC: Mónica Petty MD 12-Jun-2017 Oncology Visit Report Result: Comments: See Note; NOTES: [facility] [address] [place] [address] OFFICE VISIT Date of Service: 06/12/17 1108 MR#: [id number] Acct: [id number] Name: AZALIA HUNTLEY Rep #: [id number] : 1950 From: Angel Shin MD Age/Sex: [...] invas ion. Tumor is ER positive (95%) SC positive (40%) (and HER-2 not overexpressed. Patient [...] the right breast grade 2, ER positive, SC positive, HER-2/skylar not overexpressed. Patient is status [...] Cosigner Signature: Date (if applicable) CC: Mónica Petyt MD -Apr-2017 Surgery Visit Report Result: Comments: See Note; NOTES: [facility] [address] [place] [address] OFFICE VISIT Date of Service: 04/04/17 MR#: [id number] Acct: [id number] Name: PARUL BERMEO Rep #: [id number] : 1950 Provider: Adilson Crawford MD Age/Sex: 66/F Location: [facility] Status: Signed Intake Intake Visit Reasons: 1 M FU Mastectomy Associate Medical Director Required: N o Is patient in pain?: [...] 02/10/17 [History Confirmed 04/04/17] Ubidecarenone/Vitamin E Mixed [Qmi24-Emy E 200 mg- 20 Unit Sfg] 1 [...] year to follow-up. Adilson Crawford MD Pager: [facility] [address] [place] [address] Office: Coding Level of Care Code Global Post Op Diagnoses Primary cancer of right f emale breast C50.911 04/04/17 1354 <Electronically signed by Adilson Crawford MD> Date Adilson Crawford MD Cosigner Signature: Date (if applicable) CC: Mónica Petty MD 18-Mar-2017 Dexa Bone Density Study (HP) Result: Comments: See Note; NOTES: [facility] Imaging Services [address] [place] [address] Dexa Bone Density Study (HP) MR#: [id number] Acct: [id number] Name: PARUL HUNTELY p #: [id number] : 1950 F 66 From: Justice Gerardo MD PCP: Mónica Petty MD Status: REG CLI Study: Dexa Bone Density Study () Date of Exam: 03/18/17 Exam# [id number] Ordering Dr: Skylar Shin MD STUDY: DUAL [...] Justice Gerardo MD at 15:58 EST Tel [phone], Service support , CC: Mónica Petty MD; Angel Shin MD Culinary Director: Signed 17-Mar-2017 Plastic Surgery Visit Report Result: Comments: See Note; NOTES: [facility] [address] [place] [address] OFFICE VISIT Date of Service: 02/05/17 MR#: [id number] Acct: [id number] Name: PARUL HUNTLEY Rep #: [id number] : 1950 Provider: Tyler Amezcua MD Age/Sex: 66/F Location: [facility] Status: Signed Intake Vital Signs02/05/17 Height 5 ft 2 in 02/05/17 Weight: 14 5 lb 02/05/17 Body Mass Index (BMI) 26.5 02/05/17 Respiratory Rate 20 Intake Visit Reasons: evaluation breast reconstruction Associate Medical Director Required: No Is patient in pain?: No [...] 02/10/17 [History Confirmed 03/13/17] Ubidecarenone/Vitamin E Mixed [Htu95-Zja E 200 mg-20 Unit Sfg] 1 ea [...] receptors were positive. Progesterone receptors were positive. Tjw3kpc was negative. She comes in today to [...] for breast cancer. Father: age 60 of [place], hx CAD Mother: age 70 of [place], hx CAD and diabetes SOCIAL HISTORY: Patient [...] main types of reconstruction are using an machine helper and/or implant or using autogenous tissue such [...] Physical Exam Result: Comments: See Note; NOTES: [facility] Medical Records Department [address] [place] [address] History and Physical 03/13/17 1056 MR#: [id number] Acct: [id number] Name: YUKORoe KODY Cedeno Rep #: [id number] : 1950 66 From: Angel Shin MD PCP: Mónica Petty MD Status: REG RCR Y Location: [facility] (1) Primary cancer of right female breast [...] lymphovascular invasion. Tumor is ER positive (95%) SC positive (40%) (and HER-2 not overexpressed. Patient made an uneventful recovery from her surgery. Oncotype DX testing showed her to be at low risk group with a score of 13. Her past medical history is notable for Parkinson's disease, hypertension and vitamin D deficiency state. 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 Patient is status [...] indicated. Patient was seen was her and erioxhch-fg-wuk. Impression and recommendation discussed. The rationale behind [...] Visit Report Result: Comments: See Note; NOTES: [facility] [address] [place] [address] OFFICE VISIT Date of Service: 03/04/17 MR#: [id number] Acct: [id number] Name: PARUL BERMEO Rep #: [id number] : 1950 Provider: Adilson Crawford MD Age/Sex: 66/F Location[facility] Status: Signed Intake Intake Visit Reasons: 2 week f/u mastectomy Associate Medical Director Require d: No Is patient in pain?: [...] 02/10/17 [History Confirmed 03/04/17] Ubidecarenone/Vitamin E Mixed [Dpx45-Ado E 200 mg-20 Unit Sfg] 1 ea [...] this will dissipate Adilson Crawford MD Pager: [facility] [address] [place] [address] Office: Medications New: 03/05/17 0903 <Electronically signed by Adilson Crawford MD> Date Adilson Crawford MD Cosign Signature: Date (if applicable) CC: Mónica Petty MD; Angel Shin MD 13-Feb-2017 Discharge Summary Result: Comments: See Note; NOTES: [facility] Medical Records Department [address] [place] [address] Discharge Summary 02/13/17 0804 MR#: [id number] Acct: [id number] Name: NEYMAR HUNTLEY Rep #: [id number] : 1950 66 From: Adilson Crawford MD PCP: Mónica Petty MD Status: REG [facility] Location: [place] [address] Discharge Date and Diagnosis - Problem List [...] Imaging Results: Clinical Impression(s) from Imaging Studies [place] Node 02/12/17 11:00 IMPRESSION: Injectio n of 1.1 mCi of technetium level sulfur colloid for sentinel node imaging. Electronically Signed: Justice Gerardo MD at 12:38 EST Tel [phone], Service support , Fax Operations: - - [...] patch TRANSDERM. DAILY 02/10/17 Ubidecarenone/Vitamin E Mixed [Pxp70-Ryt E 200 mg-20 Unit Sfg] 1 each [...] call today to make appt mon or [phone] Meaningful Use Info Meaningful Use Diagnoses (Choose all that apply): None applicable 02/13/17 0806 <Electronically signed by Adilson Crawford MD> Date Adilson Crawford MD Cosigner Signature (if applicable): Date CC: Adilson Crawford MD; Mónica Petty MD Signed 13-Feb-2017 Discharge Summary Result: Comments: See Note; NOTES: [facility] Medical Records Department [address] [place] [address] Discharge Summary 02/13/17 0753 MR#: [id number] Acct: [id number] Name: NEYMAR HUNTLEY Rep #: [id number] : 1950 66 From: Adilson Crawford MD PCP: Mónica Petty MD Status: REG SD Y Location: [place] [address] Discharge Date and Diagnosis - Problem List [...] patch TRANSDERM. DAILY 02/10/17 Ubidecarenone/Vitamin E Mixed [Mxz49-Wkq E 200 mg-20 Unit Sfg] 1 each [...] Discharge Instruction Result: Comments: See Note; NOTES: [facility] Medical Records Department [address] [place] [address] Instructions for Home/Discharge Instructions 02/13/17 0756 MR#: [id number] Acct: [id number] Name: YUKOPARUL Pao Rep #: [id number] : 1950 66 From: Adilson Crawford MD PCP: Mónica Petty MD Status: REG [facility] Discharge Diet: No Restrictions Discharge Activity: May [...] TRANSDERM. LAUREANO LY 02/10/17 Ubidecarenone/Vitamin E Mixed [Avn88-Ahx E 200 mg-20 Unit Sfg] 1 each PO DAILY 02/10/17 Oxycodone HCl/Acetaminophen [Percocet 5/325] 1 - 2 tablet PO Q4H PRN PRN #40 tablet 02/13/17 The fol lowing prescriptions were given: Oxycodone HCl/Acetaminophen [Percocet 5/325] 1 - 2 tablet PO Q4H PRN PRN #40 tablet PRN Reason: Pain Primary Care Physician: Mónica Petty MD [Primary Care Provider] - P sony Follow Up With: Adilson Crawford MD When: call today to make appt larry rosa [phone] 02/13/17 6511 <Electronically signed by Adilson Crawford MD> Date _ Adilson Crawford MD CC: Mónica Petty MD 12-Feb-2017 Operative Report Result: Comments: See Note; NOTES: [facility] Medical Records Department [address] [place] [address] Operative Report 02/12/17 1709 MR#: [id number] Acct: [id number] Name: SCOTT HUNTLEY Rep #: [id number] : 1950 66 From: Adilson Crawford MD PCP: Mónica Petty MD Status: REG SD Y Location: [place] [address]-1 Problem List (1) Breast cancer, right Status: Acute Qualifiers: [place] [address] location: central portion of breast Estrogen [...] hemostat was used to bring a 15 Urdu round drain into the inferior flap. The [...] VTE Mechan Device Proph ylaxis: SCD's 02/12/17 787 <Electronically signed by Adilson Crawford MD> Date Adilson Crawford MD CC: Adilson Crawford MD; Mónica Petty MD Signed 12-Feb-2017 Lymph Node Injection Only Result: Comments: See Note; NOTES: [facility] Imaging Services [address] [place] [address] Lymph Node Injection Only MR#: [id number] Acct: [id number] Name: PARUL HUNTLEY Rep # : [id number] : 1950 F 66 From: Justice Gerardo MD PCP: Mónica Petty MD Status: [facility] Study: Lymph Node Injection Only Date of Exam: 02/12/17 Exam# [id number] Ordering Dr: Patti Crawford MD PROCEDURE: NUCLEAR MEDICINE Injection [place] Node - RIGHT breast(s). REASON FOR EXAM: Female, 66 years old. Right breast cancer. TECHNIQUE: [place] node localization using radionuclide metho ds of [...] Justice Gerardo MD at 12:38 EST Tel [phone], Service support , Fax CC: Adilson Crawford MD; Mónica Petty MD Culinary Director: Signed 03-Feb-2017 PET/CT Tumor Base -Thigh Init Result: Comments: See Note; NOTES: [facility] Imaging Services [address] [place] [address] PET/CT Tumor Base -Thigh Init MR#: [id number] Acct: [id number] Name: PARUL HUNTLEY ep #: [id number] : 1950 F 66 From: Richard Pino DO PCP: Mónica Petty MD Status: REG CLI Study: PET/CT Tumor Base -Thigh Init Date of Exam: 02/03/17 Exam# [id number] Ordering Dr: Chris Crawford MD EXAMINATION: FDG [...] manifest in the right breast 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 of the [...] CC: Adilson Crawford MD; Mónica Petty MD Culinary Director: Signed 13-Jan-2017 Breast w/o and/or W Cont Bilat Result: Comments: See Note; NOTES: [facility] Imaging Services [address] [place] [address] Breast w/o and/or W Cont Bilat MR#: [id number] Acct: [id number] Name: PARUL HUNTLEY Rep #: [id number] : 1950 F 66 From: Joanne Hagen MD PCP: Mónica Petty MD Status: REG CLI Study: Breast w/o and/or W Cont Bilat Date of Exam: 01/13/17 Exam# [id number] Ordering Dr: Chris Crawford MD STUDY: BILATERAL [...] Highly Suggestive of Malignancy - Appropriate Action Amie d Be Taken. A letter regarding these results will be sent to the patient by the facility within 30 days. Electronically Signed: Joanne Hagen MD at 17:00 EST , Service support , CC: Adilson Crawford MD; Mónica Petty MD Culinary Director: Signed 26-Dec-2016 Breast Limited Unilateral Result: Comments: See Note; NOTES: [facility] Imaging Services [address] [place] [address] Breast Limited Unilateral MR#: [id number] Acct: [id number] Name: PARUL HUNTLEY Rep # : [id number] : 1950 F 66 From: Justice Gerardo MD PCP: Mónica Petty MD Status: REG CLI Study: Breast Limited Unilateral Date of Exam: 12/26/16 Exam# [id number] Ordering Dr: Mónica Petty MD STUDY: ULTRASOUND [...] a suspicious lesion. A biopsy is recommended. US/[place] st Limited Unilateral IMPRESSION: 9 mm x [...] Justice Gerardo MD at 15:02 EDT Tel [phone], Service support , CC: Mónica Petty MD Culinary Director: Signed 26-Dec-2016 SCREENING MAMM (CAD), BILAT Result: Comments: See Note; NOTES: [facility] Imaging Services [address] [place] [address] SCREENING MAMM (CAD), BILAT MR#: [id number] Acct: [id number] Name: PARUL HUNTLEY Rep #: [id number] : 1950 F 66 From: Justice Gerardo MD PCP: Mónica Petty MD Status: REG CLI Study: SCREENING MAMM (CAD), BILAT Date of Exam: 12/26/16 Exam# [id number] Ordering Dr: Mónica Petty MD MAMMOGRAPHY - [...] delay biopsy of a clinically suspicious abnormality. [id number] Electronically Signed: Justice suggs MD at 11:31 EDT Tel [phone], Service support , CC: Mónica Petty MD Culinary Director: Signed 20-Dec-2015 Bilat Scrn Digital AND CAD Result: Comments: See Note; NOTES: [facility] Imaging Services [address] [place] [address] Verdana 4d Bilat Scrn Digital AND CAD MR#: [id number] Acct: [id number] Name: SCOTT HUNTLEY Rep #: [id number] : 1950 F 65 From: Justice Gerardo MD PCP: Mónica Petty MD Status: REG CLI Study: Bilat Scrn Digital AND CAD Date of Exam: 12/20/15 Exam# [id number] Ordering Dr: Mónica Corral MD MAMMOGRAPHY - [...] signific ant change since the prior study. BI/Bilat Scrn Digital AND CAD IMPRESSION: Stable bilateral screening mammogram. Yearly follow-up mammogram r ecommended. (A) ASSESSMENT CATEGORY: BIRADS Category 1: Negative. A letter regarding these results will be sent to the patient by the facility within 30 days. Appr oximately 10% of breast cancers are not detected by mammography. A normal mammogram should not delay biopsy of a clinically suspicious abnormality. [id number] Electronically Signed: Justice Gerardo MD at 14:08 EDT Tel [phone], Service support [phone], CC: Mónica Petty MD Culinary Director: Signed 13-Dec-2014 Bilat Scrn Digital AND CAD Result: Comments: See Note; NOTES: [facility] Imaging Services [address] [place] [address] Breast Imaging Report MR#: [id number] Acct: [id number] Name: PARUL HUNTLEY Rep #: [id number] : 1950 F 64 From: Justice Gerardo MD PCP: Mónica Petty MD Status: REG CLI Study: Bilat Scrn Digital AND CAD Date of Exam: 12/13/14 Exam# [id number] Ordering Dr: Mónica Grant MD MAMMOGRAPHY - [...] Justice Gerardo MD at 8:13 EDT Tel [phone], Service support [phone], CC: Mónica Petty MD Culinary Director: Signed 26-Apr-2014 Knee 4 or More Views Result: Comments: See Note; NOTES: [facility] Imaging Services [address] [place] [address] Radiology Report MR#: [id number] Acct: [id number] Name: YUKOPARUL Pao Rep #: [id number] : 1950 F 63 From: Justice Gerardo MD PCP: Mónica Petty MD Status: REG CLI Study: Knee 4 or More Views Date of Exam: 04/26/14 Exam# [id number] Ordering Dr: Mónica Petty MD S TUDY: [...] Gerardo MD 2 at 15:36 EST Tel [phone], Service support [phone], CC: Mónica Petty MD Culinary Director: Signed 17-May-2013 Cristi Pham Digital & CAD Result: Comments: See Note; NOTES: [facility] Imaging Services [address] [place] [address] Breast Imaging Report MR#: [id number] Acct: [id number] Name: PARUL HUNTLEY Rep #: [id number] : 1950 F 62 From: Justice Gerardo MD PCP: Mónica Petty MD Status: REG CLI Exam# [id number] Ordering Dr: Mónica Petty MD MAMMOGRAPHY - [...] M.D. at 11:03 EDT , Service support [phone], CC: Mónica Petty MD Culinary Director: Signed Family History Unknown Family Member Name Dates Details 8 siblings: Sjorgens, DM in 2 sisters, RA, younger sister had PR and DM Comments: [place] at 63yo. hyperthyriodism Status: Active Father Comments: at 67 from [place], not involved with him not know history, acoholism Status: Active maternal cousin neck cancer 17 yo Status: Active maternal uncle Parkinsons Status: Active Mother Comments: at 67 from [place], DM in 50's obesity. some high cholesterol. 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 left [place] at 18 yo to live with sister [...] smoker Vital Signs Date Test Result Details 48-Mvl-966121:22 Temperature 97.6 f Comments: Method: Temporal Pulse [...] kg/m2 Body Surface Area Calculated 1.63 m2 68-Ome-018035:55 Temperature 97.8 f Comments: Method: Temporal Pulse [...] kg/m2 Body Surface Area Calculated 1.69 m2 : Temperature 97.9 f Comments: Method: Oral Pulse [...] 0.00 cm Results Date Description Value Details 19-Kim-79061:48 Pap IG, rfx HPV Comments: Source.............Cervix;EndocervixNo. of containers..01 ThinPrep VialPATIENT NOT FASTINGPERFORMED BY: [facility] [address] [id number] Information: [id number] all pth Note: PAPSMR (Normal) Comments: The [...] present.Partially obscuring thick areas are present.Z12.4Emarysol Duarte, Manager Operations (ASC)Cassie Jain, Supervisory Manager Operations (ASC) 35-Smj-419527:58 C-REACT PROT HIGH SENS(hsCRP) Comments: PATIENT NOT FASTINGPERFORMED BY: [employer] [place] [id number] (36021) C-Reactive Protein, Cardiac 11.71 mg/L (Abnormal) Range: 0.00-3.00 Comments: Relative Risk for Future Cardiovascular Event Low <1.00 Average 1.00 - 3.00 High >3.00 04-Yga-549557:12 Microscopic Examination Comments: PATIENT NOT FASTINGPERFORMED BY: SupportBee6370 [facility] [id number] Bacteria Moderate (Abnormal) Mucus Threads Present (Normal) Crystal Type Amorphous Sediment (Normal) Crystals Present (Abnormal) Epithelial Cells (non renal) 0-10 {/hpf} (Normal) Range: 0 - 10 RBC 3-10 {/hpf} (Abnormal) Range: 0 - 2 WBC >30 {/hpf} (Abnormal) Range: 0 - 5 33-Uej-383570:46 URINE BOOGIE CULTURE-IDENTIFICATN Comments: PATIENT NOT FASTINGPERFORMED BY: SupportBee6370 [facility] [id number] Information: SRC: ([id number]) Antimicrobial MIHEAD (Normal) Comments: S = Susceptible; [...] and Proteusmirabilis. Urine Final report Culture,Comprehensive (Abnormal) 76-Nad-017594:27 CBC W/Diff, Automated Comments: Reason for Laboratory Test .[facility] [address] [place], [address] Absolute Lymph 1.08 {X10_3/ul} (Normal) Range: 0.83-4.51 [...] 4.2-5.4 WBC 5.0 K/mm3 (Normal) Range: 4.4-11.0 33-Lxe-731878:27 Comprehensive Metabolic Profil Comments: Reason for Laboratory Test .[facility] [address] [place], [address] GAP 6 (Normal) Range: 5-15 CO2 29.0 [...] Comments: Please note revised GLUCOSE reference range vcsiiwsyc90/02/2018. 18-Cev-710615:55 CBC W/Diff, Automated Comments: Reason for Laboratory Test .[facility] [address] [place], [place], [id number] Absolute Lymph 1.26 {X10_3/ul} (Normal) Range: 0.83-4.51 [...] 4.2-5.4 WBC 4.6 K/mm3 (Normal) Range: 4.4-11.0 85-Ddb-096119:55 Comprehensive Metabolic Profil Comments: Reason for Laboratory Test .[facility] [address] [place], [place], [id number] GAP 6 (Normal) Range: 5-15 CO2 28.0 mmol/L (Normal) Range: 21.0-32.0 CL 107 mmol/L (Normal) Range: 98-107 K 4.1 mmol/L (Normal) Range: 3.5-5.1 NA 141 mmol/L (Normal) Range: 136-145 T BILI 0.40 mg/dL (Normal) Range: 0.20-1.00 ALT 21 U/L (Normal) Range: 13-56 Comments: Please note revised ALT reference range xgsoebriw38/28/2018. ALK P 76 U/L (Normal) Range: 45-117 [...] Comments: Please note revised GLUCOSE reference range lfjuwowoh01/02/2018. 79-Mvj-428857:55 Vitamin D,25 Hydroxy Comments: Reason for Laboratory Test .[facility] [address] [place], [address] Vitamin D 25-OH 33.6 ng/mL (Normal) Range: 29.95-100.01 Comments: Vitamin D 25(OH) Status Range Deficiency <20 ng/mL (50nmol/L) Insuffciency 20 - 30 ng/mL (50 - 75 nmol/L) Sufficiency 30 - 100 ng/mL (75 - 250 nmol/L) Toxicity >100 ng/mL (>250 nmol/L) 47-Iar-241015:14 CBC W/Diff, Automated Comments: Reason for Laboratory Test [facility] [address]hawgl[address] [place], [address] Absolute Lymph 1.49 {X10_3/ul} (Normal) [...] 4.2-5.4 WBC 6.0 K/mm3 (Normal) Range: 4.4-11.0 74-Tgo-006158:14 Comprehensive Metabolic Profil Comments: Reason for Laboratory Test BREAST [facility] [address] [place], [id number] GAP 7 (Normal) Range: 5-15 CO2 28.0 [...] 7-18 GLU 96 mg/dL (Normal) Range: 70-110 94-Jxo-70879:34 Basic Metabolic Profile (BMP) Comments: [facility] [address] [place], [place], [id number] GAP 8 (Normal) Range: 5-15 CO2 25.0 [...] <126 mg/dLsuggests IMPAIRED HOMEOSTASIS per A.D.A. criteria. 19-Ins-15026:34 CBC W/Diff, Automated Comments: [facility] [address] [place], [place], [id number] Absolute Lymph 0.74 {X10_3/ul} (Abnormal) Range: 0.83-4.51 [...] 4.2-5.4 WBC 7.4 K/mm3 (Normal) Range: 4.4-11.0 73-Qfs-193289:20 Partial Thromboplast Time Comments: [place] [address] [place], [address] PTT 27.7 s (Normal) Range: 24.1-36.2 91-Kzy-036618:20 Prothrombin Time w/INR Comments: [address] [place], [id number] INR 1.0 (Normal) PROTIME 12.5 s (Normal) Range: 11.7-14.9 22-Vhc-188393:57 CBC-Complete Blood Cnt No Diff Comments: [address] [place], [id number] MPV 10.2 fL (Normal) Range: 6.2-12.0 PLT [...] 4.2-5.4 WBC 4.5 K/mm3 (Normal) Range: 4.4-11.0 80-Hbs-686188:57 Liver Profile Comments: [address] [place], [id number] D BILI 0.15 mg/dL Range: 0.00-0.30 (Normal) [...] BIOPSY (CHOOSE SITE) See Note (Normal) Comments: [facility] [address] [place], [address] 710:35 Comments: Patient: PARUL HUNTLEY : 1950 (66/F) Acct Num: [id number] Phys: Yvette HORNER,Adilson Unit Num: [id number] Loc: LABSPEC Specimen: [id number] Received: 01/16/17 0944 Spec Type: BREAST BX TISSUES TISSUES: COMMENT Immunohistochemistry ([id number]) supports the above diagnosis. ER/SC/Ahi9exy studies are being performed on sections of tumor and the r esults from this study will be reported separately ([id number]). GROSS DESCRIPTION Received in fixative is one container labeled with the patient's name and designated right breast tissue. The s pecimen consists of multiple elongated fragments of cabrera-yellow fibroadipose tissue that in aggregate measure 2 x 0.3 x 0.1 cm. The entire specimen is submitted in one cassette. / FELICIANO:abena 01/16/17 TC:0 CPT: 74993 HEADER OPERATION: Right breast mammotome biopsy PRE-OP [...] on file> IMMUNOHISTOCHEMISTRY See Note (Normal) Comments: [facility] [address] [place], [address] 70:00 Comments: Patient: PARUL HUNTLEY : 1950 (66/F) Acct Num: [id number] Phys: Adilson Crawford MD Unit Num: [id number] Loc: LABSPEC Specimen: [id number] Received: 01/17/171255 Spec Type: IMMUNO TISSUES TISSUES: SPECIMEN INFORMATION: Tissue Source: Right breast tissue Clinical Info: Abnormal breast MRI Specimen Number: [id number] CPT code: 84716, 883 41 x4, 45231 x3 METHODOLOGY: Deparaffinized sections of prefer/formalin- fixed tissue or PAP/DQ stained slides are incubated with monoclonal/polyclonal antibodies/oligonucleotide probes. Localizati on is made via biotin free immunoperoxidase method. Appropriate controls are performed and reacted as expected. Results on target cell population are indicated in the following table: RESULTS: A NTIBODY / CLONE RESULT E-Cad (ECH-6) negative CK8 (38mmryT69) positive CK5-6 (D5 AND 1684) negative Ki-67 (30-9) positive , low P53 (DO-7) negative MORPHOMETRIC ANALYSIS ER (clone 6F11) >95%, strong SC (clone 16/1E2) 40% , weak to moderate [...] fo r all equivocal cases. Positivity/negativity for ER/SC is reported if > or < 1% of the tumor cells are immuno- reactive, respectively. The ASCO/CAP criteria is used for scoring. Reference: Journal of Clinical Oncology, 2013; 31:0167-5096 AND 2010; 16:3310-9609. Duration of fixation: 33 Hrs; Sample Adequate: Yes. These assays have not been validated on decalcified tissues. Results should b einterpreted with caution given the likelihood of false negativity on decalcifiedspecimens. These tests were developed and their performance characteristics determined by [facility]. They may not have been cleared or approved by the U.S. Food and Drug Administration. The FDA has determined that such clearance or approval is not necessary. INTERPRETATION: Right jennifer ast, mammotome biopsy: Invasive lobular carcinoma, nuclear grade 2. Positive for estrogen receptors (favorable prognostic indicator). Positive for progesterone receptors (favorable prognos tic indicator). Negative for overexpression of NLZ5ykm. SJ:abena 01/17/17 PHYSICIAN AND INSTITUTION [facility] [address] [place], [place] [address] Signed __ Dario Bill 01/17/17 <signature on file> 67-Vrg-64132:30 CREATININE FINGERSTICK Comments: [facility] LaboratoryPoint [facility] Jyyf[address] [facility] [place], [place] [id number] EGFR WB > 60.0000 mL/min (Normal) CREATININE WB 0.7 mg/dL (Normal) Range: 0.55-1.02 40-Pgo-985727:12 MICROALBUMIN: CREATININE RATIO Comments: PATIENT NOT FASTINGPERFORMED BY: [facility]Xulcuq4790 [facility] [id number] (24079) AND (32368) Alb/Creat Ratio 41.6 {mg/g_creat} (Abnormal) Range: 0.0-30.0 Albumin, Urine 26.1 ug/mL (Normal) Creatinine, Urine 62.7 mg/dL (Normal) 38-Urw-822075:12 URINALYSIS (42423) Comments: PATIENT NOT FASTINGPERFORMED BY: [facility]Ajccwx4667 [facility] [id number]; patient was treated with Cipro Microscopic Examination See below: (Normal) Comments: Microscopic was indicated and was performed. Nitrite, Urine Positive (Abnormal) Urobilinogen,Semi-Qn 1.0 mg/dL (Normal) Range: 0.2-1.0 Bilirubin Negative (Normal) Occult Blood Trace (Abnormal) Ketones Negative (Normal) Glucose Negative (Normal) Protein Negative (Normal) WBC Esterase 3+ (Abnormal) Appearance Clear (Normal) Urine-Color Yellow (Normal) pH 6.5 (Normal) Range: 5.0-7.5 Specific [place] 1.011 (Normal) Range: 1.005-1.030 82-Wbe-519342:12 Metabolic Panel, Comprehensive Comments: PATIENT NOT FASTINGPERFORMED BY: [facility]Mtwabd6260 [facility] [id number] (93099) ALT (SGPT) 16 [iU]/L (Normal) Range: 0-32 [...] 8-27 Glucose 94 mg/dL (Normal) Range: 65-99 80-Ckg-278977:12 CBC WITH MANUAL DIFF Comments: PATIENT NOT FASTINGPERFORMED BY: [facility]Yhdqlx4220 [facility] [id number] Information: NURSE DRAW (50668) Immature Grans (Abs) 0.0 {x10E3/uL} (Normal) Range: [...] 3.77-5.28 WBC 7.3 {x10E3/uL} (Normal) Range: 3.4-10.8 5-Xux-608699:00 Pathology Report Comments: PERFORMED BY: [facility] Ignacio Cyto Umvpl11171 [facility] [id number] BY: [facility] Dermatopathology Itcsxuc864 [address] [id number] Information: [id number] See MATER Comments: Material submitted: .RIGHT BOTTOM [...] DESIGNATEDBIOPSY FOOT IS A 0.6 CM PU [facility] BIOPSY OF CORNIFIED SKIN HAVING ADERMIS OF 0.4 CM. ECCENTRICALLY LOCATED ON THE SKIN SURFACE IS A0.4 CM IN DIAMETER FIRM YELLOW SLIGHTLY RAISED AREA. THE DERMISIS MARKED WITH RED INK AND THE SPECIME N IS BISECTED AND SUBMITTEDIN TOTO IN ONE BLOCK.LIT/VINPathologist provided ICD-10:B07.9CPT .464852 3 COLON See Note Comments: [facility] X[address]wqdbsbo8057 [facility] [place], [address] 1 BIOPS (Normal) Comments: Patient: PARUL HUNTLEY : 1950 (66/F) Acct Num: [id number] Phys: Junior Boyle Unit Num: [id number] Loc: LABSPEC Specimen: [id number] Received: 10/31/161606 Spec Ty - Y pe: COLON BX TISSUES TISSUES: GROSS DESCRIPTION Received in fixative is one container labeled with the patient's name and designated right colon polyp biopsies. The specimen consis A (CALI ts of multiple irregular fragments of light cabrera soft tissue that in aggregate measure 0.3 x 0.3x 0.1 cm. The specimen is totally submitted in one cassette. / FELICIANO:abena 11/01/16 TC:1 CPT: 02754 HEADER u SE OPERATION: Colonoscopy with biopsies PRE-OP DIAGNOSIS: Screening TISSUE SUBMITTED: Right colon polyp biopsies - rule out adenoma MICROSCOPIC DESCRIPTION Slides are reviewed. MICROSCOPIC g SITE) DIAGNOSIS Right colon polyp, biopsy: Fragments of hyperplastic polyp. FELICIANO:abena 11/05/16 Signed Dario Fly 11/05/16 <signature on file> - 2 0 1 7 1 1 : 0 7 66-Ojd-481598:08 CBC with auto diff (98012) Comments: PATIENT NOT FASTINGPERFORMED BY: [facility] Caxnrb5171 [facility] [id number] Immature Grans (Abs) 0.0 {x10E3/uL} (Normal) Range: [...] 3.77-5.28 WBC 5.6 {x10E3/uL} (Normal) Range: 3.4-10.8 86-Kza-068648:08 METABOLIC PANEL, COMPREHENSIVE Comments: PATIENT NOT FASTINGPERFORMED BY: XO170 [facility] [id number] (78000) ALT (SGPT) 13 [iU]/L (Normal) Range: 0-32 [...] Glucose, Serum 93 mg/dL (Normal) Range: 65-99 06-Wre-013782:08 CALCIFIDIOL (64120) VIT D 25 Comments: PATIENT NOT FASTINGPERFORMED BY: XO170 [facility] [id number] Vitamin D, 25-Hydroxy 54.0 ng/mL (Normal) Range: 30.0-100.0 Comments: Vitamin D deficiency has been defined by the [place] of[place]icine and an Endocrine Society practice guideline as alevel of serum 25-OH vitamin D less than 20 ng/mL (1,2).The Endocrine Society went on to further define vitamin Dinsufficiency as a level between 21 and 29 ng/mL (2).1. IOM ([place] of Medicine). 2010. Dietary reference intakes for calcium and D. [place]: The National AcademCitizenNet Press.2. Angelo MF, Chin HANSEN, Katy HERRERA, et al. Evaluation, treatment, and prevention of vitamin D deficiency: an Endocrine Society clinical practice guideline. JCEM. 2010; 96(7):1911-30. 51-Xyt-501772:45 Anti-TPO Antibody (54110) Comments: PATIENT NOT FASTINGPERFORMED BY: SupportBee6370 [place] [id number] Thyroid Peroxidase (TPO) Ab <6 {IU/mL} (Normal) Range: 0-34 :45 T3, FREE (TRIDOTHYRONINE) (81344) Comments: PATIENT NOT FASTINGPERFORMED BY: [facility] LabActacellrp Wzdptw7591 [place] [id number] Triiodothyronine,Free,Serum 2.7 pg/mL (Normal) Range: 2.0-4.4 :45 T4, FREE (THYROXINE) (95082) Comments: PATIENT NOT FASTINGPERFORMED BY: CB [facility] Nvrpif3212 [place] [employer] [id number] T4,Free(Direct) 1.22 ng/dL (Normal) Range: 0.82-1.77 64-Nwo-029109:45 TSH (THYROID STIMULATING Comments: PATIENT NOT FASTINGPERFORMED BY: CB [facility] Iadhvc2398 [place] [employer] [id number]; fu 12-19 HORMONE) (25018) TSH 2.340 {uIU/mL} (Normal) Range: 0.450-4.500 :13 CALCIFIDIOL (50009) VIT D 25 Comments: PATIENT WAS FASTINGPERFORMED BY: [facility] Tpovjt0845 [facility] [id number] Vitamin D, 25-Hydroxy 43.6 ng/mL (Normal) Range: 30.0-100.0 Comments: Vitamin D deficiency has been defined by the [place] of[place]icine and an Endocrine Society practice guideline as alevel of serum 25-OH vitamin D less than 20 ng/mL (1,2).The Endocrine Society went on to further define vitamin Dinsufficiency as a level between 21 and 29 ng/mL (2).1. IOM ([place]). 2010. Dietary reference intakes for calcium and D. [place]: The National Academies Press.2. Angelo MF, Chin HANSEN, Katy HERRERA, et al. Evaluation, treatment, and prevention of vitamin D deficiency: an Endocrine Society clinical practice guideline. JCEM. 2010; 96(7):1911-30. :13 URINALYSIS (90499) Comments: PATIENT WAS FASTINGPERFORMED BY: SupportBee6370 [facility] [id number] Microscopic Examination MICNIP (Normal) Comments: Microscopic not indicated and not performed. Nitrite, Urine Negative (Normal) Urobilinogen,Semi-Qn 0.2 mg/dL (Normal) Range: 0.2-1.0 Bilirubin Negative (Normal) Occult Blood Negative (Normal) Ketones Negative (Normal) Glucose Negative (Normal) Protein Negative (Normal) WBC Esterase Negative (Normal) Appearance Clear (Normal) Urine-Color Yellow (Normal) pH 7.0 (Normal) Range: 5.0-7.5 Specific [place] 1.021 (Normal) Range: 1.005-1.030 :13 Metabolic Panel, Comprehensive Comments: PATIENT WAS FASTINGPERFORMED BY: SupportBee6370 [facility] [id number] (89892) ALT (SGPT) 23 [iU]/L (Normal) Range: 0-32 [...] mg/dL (Normal) Range: 65-99 09-Aug-20158:13 Lipid Panel (97392) Comments: PATIENT WAS FASTINGPERFORMED BY: [facility]Bcalep6378 [facility] [id number] LDL/HDL Ratio 1.6 {ratio_units} (Normal) Range: 0.0-3.2 [...] MANUAL DIFF Comments: PATIENT WAS FASTINGPERFORMED BY: [facility]kerm[facility]Co[facility])Bzgpvb8628 [facility] [id number] Information: [id number]; apt. 08-10-15 (77980) Immature Grans (Abs) 0.0 {x10E3/uL} (Normal) Range: [...] CULTURE-KATHRYN COL Comments: PATIENT NOT FASTINGPERFORMED BY: [facility]Xsluro3820 [facility] [id number] Information: SRC:[facility] [id number] COUNT (01578) Result 1 NG36 (Normal) Comments: No growth in 36 - 48 hours. Urine Culture,Comprehensive Final report (Normal) 8-Gzx-240865:50 Urinalysis, Office (61173) UA - LEUKOCYTE ESTERASE Small (Normal) UA - NITRITE Negative (Normal) URINE UROBILINGN KATHRYN TIMED Normal mg/dL (Normal) UA - PROTEIN Negative mg/dL (Normal) UA - PH 6 (Abnormal) UA - BLOOD Hemolyzed Trace (Normal) UA - SPECIFIC GRAVITY 1.020 (Normal) UA - KETONES Negative mg/dL (Normal) UA - BILIRUBIN Negative (Normal) UA - GLUCOSE Negative (Normal) 57-Ler-199390:13 Miscellaneous Lab Procedure Comments: Results faxed on 11/22/141423 by JODY .Comments: [id number] PAPTest(s) Ordered: [id number] PAPTest performed at:[facility] Nkrbbwomvy[address] [place] [address] [facility] TEST (Normal) Comments: Scanned image report available in EMR 78-Cin-331051:08 CBC With Differential/Platelet Comments: PATIENT WAS FASTINGPERFORMED BY: [facility] Rnczef4310 [facility] [id number]; [facility] fu - will review with patient [...] 3.77-5.28 WBC 5.6 {x10E3/uL} (Normal) Range: 3.4-10.8 49-Qfn-804856:08 Comp. Metabolic Panel (14) Comments: PATIENT WAS FASTINGPERFORMED BY: [facility] Bcpimq7094 [facility] [id number] ALT (SGPT) 12 [iU]/L (Normal) Range: 0-32 [...] Glucose, Serum 84 mg/dL (Normal) Range: 65-99 46-Wrv-141444:08 Lipid Panel With LDL/HDL Comments: PATIENT WAS FASTINGPERFORMED BY: [facility]6370 [facility] [id number] Ratio LDL/HDL Ratio 1.3 {ratio_units} Range: 0.0-3.2 [...] ng/mL (Normal) Comments: PATIENT WAS FASTINGPERFORMED BY: [facility]6370 [facility] [id number] 11:08 Range: 30.0-100.0 Comments: Vitamin D deficiency has been defined by the [place] ofMet[facility] Medical Centercine and an Endocrine Society practice guideline as alevel of serum 25-OH vitamin D less than 20 ng/mL (1,2).The Endocrine Society went on to further define vitamin Dinsufficiency as a level between 21 and 29 ng/mL (2).1. IOM ([place]). 2010. Dietary reference intakes for calcium and D. [place]: The National Academies Press.2. Angelo MF, Chin HANSEN, Katy HERRERA, et al. Evaluation, treatment, and prevention of vitamin D deficiency: an Endocrine Society clinical practice guideline. JCEM. 2010; 96(7):1911-30. 49-Wse-57006:36 METABOLIC PANEL, COMPREHENSIVE Comments: PATIENT WAS FASTINGPERFORMED BY: [place] [address]94370 [facility] [id number] (72601) ALT (SGPT) 13 [iU]/L (Normal) Range: 0-32 [...] Glucose, Serum 85 mg/dL (Normal) Range: 65-99 05-Qri-62947:36 LIPID PANEL (27219) Comments: PATIENT WAS FASTINGPERFORMED BY: [facility] Nyfvgm1169 [facility] [id number] LDL/HDL Ratio 1.2 {ratio_units} (Normal) Range: 0.0-3.2 [...] MANUAL DIFF Comments: PATIENT WAS FASTINGPERFORMED BY: JAMIL LabCoFour [facility] Health CenterFmmvtt9229 [facility] [id number] Information: [id number] (52125) Immature Grans (Abs) 0.0 {x10E3/uL} (Normal) Range: [...] 4.8 {x10E3/uL} (Normal) Range: 3.4-10.8 :36 CALCIFIDIOL (98236) VIT D 25 Comments: PATIENT WAS FASTINGPERFORMED BY: [facility]Uzosuj8336 [facility] [id number] Vitamin D, 25-Hydroxy 45.3 ng/mL (Normal) Range: 30.0-100.0 Comments: Vitamin D deficiency has been defined by the [place] of[place]icine and an Endocrine Society practice guideline as alevel of serum 25-OH vitamin D less than 20 ng/mL (1,2).The Endocrine Society went on to further define vitamin Dinsufficiency as a level between 21 and 29 ng/mL (2).1. IOM ([place]). 2010. Dietary reference intakes for calcium and D. [place]: The National Academies Press.2. Angelo MF, Chin HANSEN, Katy HERRERA, et al. Evaluation, treatment, and prevention of vitamin D deficiency: an Endocrine Society clinical practice guideline. JCEM. 2010; 96(7):1911-30. 33-Bxx-525789:06 URINE BOOGIE CULTURE-KATHRYN COL Comments: PATIENT NOT FASTINGPERFORMED BY: [facility]Mdckbq1018 [facility] [id number] Information: SRC:UR [id number] COUNT (80520) Result 1 NG36 (Normal) Comments: No growth in 36 - 48 hours. Urine Culture,Comprehensive Final report (Normal) 62-Zdn-696118:05 Urinalysis, Office (04036) UA - BILIRUBIN Negative (Normal) UA - BLOOD Non Hemolyzed Trace (Normal) UA - GLUCOSE Negative (Normal) UA - KETONES Negative mg/dL (Normal) UA - LEUKOCYTE ESTERASE Negative (Normal) UA - NITRITE Negative (Normal) UA - PH 7.5 (Normal) UA - PROTEIN Trace mg/dL (Normal) UA - SPECIFIC GRAVITY 1.015 (Normal) URINE UROBILINGN KATHRYN TIMED 2 mg/dL (Normal) 25-Yoj-65579:06 Metabolic Panel, Comments: PATIENT WAS FASTINGPERFORMED BY: [facility]Ghjame0610 [facility] [id number] Information: [id number] Comprehensive (63264) ALT (SGPT) 16 [iU]/L (Normal) Range: 0-32 [...] mg/dL (Normal) Range: 65-99 :06 Lipid Panel (69468) Comments: PATIENT WAS FASTINGPERFORMED BY: [facility]Kvklqt3549 [facility] [id number] LDL/HDL Ratio 1.2 {ratio_units} (Normal) Range: 0.0-3.2 LDL Cholesterol Calc 131 mg/dL (Abnormal) Range: 0-99 VLDL Cholesterol Esau 11 mg/dL (Normal) Range: 5-40 HDL Cholesterol 107 mg/dL (Normal) Comments: According to ATP-III Guidelines, HDL-C >59 mg/dL is considered anegative risk factor for CHD. Cholesterol, Total 249 mg/dL (Abnormal) Range: 100-199 Triglycerides 57 mg/dL (Normal) Range: 0-149 :06 Homocysteine, Plasma (05577) Comments: PATIENT WAS FASTINGPERFORMED BY: [facility] Rsuzlq2666 [facility] [id number] Homocyst(e)ine, Plasma 7.4 umol/L (Normal) Range: 0.0-15.0 :06 CALCIFIDIOL (80413) VIT D 25 Comments: PATIENT WAS FASTINGPERFORMED BY: [facility] Ioixxb4891 [facility] [id number] Vitamin D, 25-Hydroxy 24.9 ng/mL (Abnormal) Range: 30.0-100.0 Comments: Vitamin D deficiency has been defined by the [place] of[place]icine and an Endocrine Society practice guideline as alevel of serum 25-OH vitamin D less than 20 ng/mL (1,2).The Endocrine Society went on to further define vitamin Dinsufficiency as a level between 21 and 29 ng/mL (2).1. IOM ([place] of Medicine). 2010. Dietary reference intakes for calcium and D. [place]: The National Academies Press.2. Angelo MF, Chin HANSEN, Katy HERRERA, et al. Evaluation, treatment, and prevention of vitamin D deficiency: an Endocrine Society clinical practice guideline. JCEM. 2010; 96(7):1911-30. 20-Kvm-675001:00 Microscopic Examination Comments: PATIENT WAS FASTINGPERFORMED BY: [facility] Phjbhb3271 [facility] [id number] Bacteria Few (Normal) Mucus Threads Present (Normal) Epithelial Cells (non renal) >10 {/hpf} (Abnormal) Range: 0 - 10 RBC 0-3 {/hpf} (Normal) Range: 0 - 3 WBC 11-30 {/hpf} (Abnormal) Range: 0 - 5 63-Nlb-91703:51 BILAT SCRN DIGITAL & CAD Radiology Report [...] Walton D.O.August 20, 2011 at 2:53:02 PM [id number] Signed BB/BB If you are the refe rring physician and would like to consult with theradiologist who provided this interpretation, please contact Ye Jarvis at . If this radiologist is unavailable, youwill be direc huong to another radiologist to assist. If you are a patient with a question regarding this report, pleasecontactyour referring physician directly. Professional Interpretation Provided By: [facility] , Dictated on 08/20/11 1024 by Rajat Walton DOTranscribed on 08/20/112053 by ITS IMPORTSign by Rajat Walton DO on 08/20/112054 Sign by: Rajat Walton DO 86-Ulz-03536:51 DEXA BONE DENSITY STUDY (HP) Radiology Report [...] D.O.August 22, 2011 at 12:09: 10 PM [phone] Signed BB/BB If you are the referring physician and would like to consult with theradiologist who provided this interpretation, please contact Ye Jarvis a t . If this radiologist is unavailable, youwill be directed to another radiologist to assist. If you are a patient with a question regarding this report, pleasecontactyour referring physic shaun directly. Professional Interpretation Provided By: [employer], Phone , Dictated on 08/20/11 0957 by Rajat Walton DOTranscribed on 08/22/11 1501 by ITS IMPORTSign by Rajat Walton DO on 08/22/11 1502 Sign by: Rajat Walton DO 10-Sxj-415858:19 Renal function Panel Comments: PATIENT NOT FASTINGPERFORMED BY: SupportBee6370 [facility] [id number] Information: [id number] (53615) Albumin, Serum 4.4 g/dL (Normal) Range: 3.5-5.5 [...] Glucose, Serum 84 mg/dL (Normal) Range: 65-99 37-Now-564407:00 URINALYSIS, W/ MICRO (27244) Comments: PATIENT WAS FASTINGPERFORMED BY: internetstores70 [facility] [id number] Microscopic Examination See below: (Normal) Nitrite, Urine Negative (Normal) Urobilinogen,Semi-Qn 0.2 mg/dL (Normal) Range: 0.0-1.9 Bilirubin Negative (Normal) Occult Blood Negative (Normal) Ketones Negative (Normal) Glucose Negative (Normal) Protein Negative (Normal) WBC Esterase 2+ (Abnormal) Appearance Clear (Normal) Urine-Color Yellow (Normal) pH 7.0 (Normal) Range: 5.0-7.5 Specific [place] 1.012 (Normal) Range: 1.005-1.030 99-Inr-250849:00 METABOLIC PANEL, COMPREHENSIVE Comments: PATIENT WAS FASTINGPERFORMED BY: [facility] Qdloud2056 [facility] [id number] (51126) ALT (SGPT) 17 [iU]/L (Normal) Range: 0-40 [...] Glucose, Serum 89 mg/dL (Normal) Range: 65-99 42-Kkj-356179:00 LIPID PANEL (37089) Comments: PATIENT WAS FASTINGPERFORMED BY: [facility]Nwsiwk1676 [facility] [id number] LDL/HDL Ratio 1.3 {ratio_units} (Normal) Range: 0.0-3.2 LDL Cholesterol Calc 120 mg/dL (Abnormal) Range: 0-99 VLDL Cholesterol Esau 20 mg/dL (Normal) Range: 5-40 HDL Cholesterol 92 mg/dL (Normal) Comments: According to ATP-III Guidelines, HDL-C >59 mg/dL is considered anegative risk factor for CHD. Triglycerides 100 mg/dL (Normal) Range: 0-149 Cholesterol, Total 232 mg/dL (Abnormal) Range: 100-199 94-Zlb-108366:00 CBC WITH MANUAL DIFF Comments: PATIENT WAS FASTINGPERFORMED BY: [facility]6370 [facility] [id number] Information: [id number] (54975) Immature Grans (Abs) 0.0 {x10E3/uL} (Normal) Range: [...] Microscopic Examination Comments: PATIENT WAS FASTINGPERFORMED BY: [facility] [id number] Bacteria Few (Normal) Mucus Threads Present (Normal) Epithelial Cells (non renal) >10 {/hpf} (Abnormal) Range: 0 - 10 RBC 0-3 {/hpf} (Normal) Range: 0 - 3 WBC 0-5 {/hpf} (Normal) Range: 0 - 5 :35 URINALYSIS, W/ MICRO (22416) Comments: PATIENT WAS FASTINGPERFORMED BY: [facility] [id number] Microscopic Examination See below: (Normal) Microscopic Examination MICRON (Normal) Comments: Microscopic follows if indicated. Nitrite, Urine Negative (Normal) Urobilinogen,Semi-Qn 0.2 mg/dL (Normal) Range: 0.0-1.9 Bilirubin Negative (Normal) Occult Blood Negative (Normal) Ketones Negative (Normal) Glucose Negative (Normal) Protein Trace (Normal) WBC Esterase Negative (Normal) Appearance Clear (Normal) Urine-Color Yellow (Normal) pH 7.5 (Normal) Range: 5.0-7.5 Specific [place] 1.021 (Normal) Range: 1.005-1.030 :35 METABOLIC PANEL, COMPREHENSIVE Comments: PATIENT WAS FASTINGPERFORMED BY: [facility] [id number] (38607) ALT (SGPT) 21 [iU]/L (Normal) Range: 0-40 [...] Glucose, Serum 87 mg/dL (Normal) Range: 65-99 86-Fbg-76633:35 LIPID PANEL (49035) Comments: PATIENT WAS FASTINGPERFORMED BY: [facility]Yeuyxu3821 [facility] [id number] LDL/HDL Ratio 1.3 {ratio_units} (Normal) Range: 0.0-3.2 LDL Cholesterol Calc 130 mg/dL (Abnormal) Range: 0-99 VLDL Cholesterol Esau 13 mg/dL (Normal) Range: 5-40 HDL Cholesterol 102 mg/dL (Normal) Comments: According to ATP-III Guidelines, HDL-C >59 mg/dL is considered anegative risk factor for CHD. Triglycerides 63 mg/dL (Normal) Range: 0-149 Cholesterol, Total 245 mg/dL (Abnormal) Range: 100-199 82-Wpy-15944:35 CBC WITH MANUAL DIFF Comments: PATIENT WAS FASTINGPERFORMED BY: [facility]Zhqncy6396 [facility] [id number] Information: [id number] (79142) Immature Grans (Abs) 0.0 {x10E3/uL} (Normal) Range: [...] {x10E3/uL} (Normal) Range: 4.0-10.5 06-Nov-20109:42 Urinalysis, Office (33881) UA - BILIRUBIN Negative (Normal) UA - BLOOD Hemolyzed Trace (Normal) UA - GLUCOSE Negative (Normal) UA - KETONES Negative mg/dL (Normal) UA - LEUKOCYTE ESTERASE Negative (Normal) UA - NITRITE Negative (Normal) UA - PH 7.0 (Normal) UA - PROTEIN Negative mg/dL (Normal) UA - SPECIFIC GRAVITY 1.015 (Normal) URINE UROBILINGN KATHRYN TIMED 2 mg/dL (Normal) 01-Urr-058230:01 BILAT SCRN DIGITAL & CAD Radiology Report [...] kenny suspiciousabnormality. Dictated on 08/15/10 0910 by Ashli Gerardo MDscribed on 08/15/10 1102 by ITS IMPORTSign by Justiec Gerardo MD on 08/15/10 1103 Sign by: Justice Gerardo MD 5-Bys-528089:49 MYOCARD PERF STRESS/REST MULT Radiology Report See Note (Normal) Comments: EXERCISE MYOCARDIAL PERFUSION SCAN A 60-year-old lady with a history of atypical chest pain. ERROZLIPQ35.0 mCi of Sestamibi was injected at rest. [...] Jose Juan HORNER,JaidenrilTranscribed on 08/06/10 1249 by Royce DEMPSEY by Jose Juan HORNER,Johann on 08/06/10 6625 Sign by: Johann Drake MD :16 HEPATIC FUNCTION PANEL Comments: PATIENT WAS FASTINGPERFORMED BY: [facility]Igywtt8464 [facility] [id number] Information: [id number] (20562) ALT (SGPT) 22 [iU]/L (Normal) Range: 0-40 AST (SGOT) 21 [iU]/L (Normal) Range: 0-40 Alkaline Phosphatase, S 75 [iU]/L (Normal) Range: 25-150 Bilirubin, Direct 0.13 mg/dL (Normal) Range: 0.00-0.40 Bilirubin, Total 0.4 mg/dL (Normal) Range: 0.0-1.2 Albumin, Serum 4.2 g/dL (Normal) Range: 3.5-5.5 Protein, Total, Serum 6.5 g/dL (Normal) Range: 6.0-8.5 :16 Lipid Panel (01693) Comments: PATIENT WAS FASTINGPERFORMED BY: [facility]6370 [facility] [id number] LDL/HDL Ratio 1.4 {ratio_units} (Normal) Range: 0.0-3.2 [...] HIGH SENS(hsCRP) Comments: PATIENT WAS FASTINGPERFORMED BY: [facility]6370 [facility] [id number] (77305) C-Reactive Protein, Cardiac 12.60 mg/L (Abnormal) Range: 0.00-3.00 Comments: Relative Risk for Future Cardiovascular Event Low <1.00 Average 1.00 - 3.00 High >3.00 :16 Homocysteine, Plasma (90340) Comments: PATIENT WAS FASTINGPERFORMED BY: [facility]6370 [facility] [id number] Homocyst(e)ine, Plasma 7.8 umol/L (Normal) Range: 0.0-15.0 38-Kjy-282599:35 URINE BOOGIE CULTURE-KATHRYN COL Comments: PATIENT NOT FASTINGPERFORMED BY: [place] 1594370 [facility] [id number] Information: SRC:UR [id number] COUNT ([id number]) Result 1 VIRIST (Normal) Comments: Viridans streptococcus group1,000 Colonies/mLSusceptibility not normally performed on this organism. Urine Final report (Normal) Culture,Comprehensive 98-Otu-201948:30 ABDOMEN/PELVIS WITH CONTRAST Radiology Report See Note [...] on 03/15/10 1412 Sign by: Justice Gerardo 2-Qub-575674:27 Thin prep Pap Comments: Source.............Cervical;EndocervicalNo. of containers..01 CYTYC Thin Prep VialPATIENT NOT FASTINGPERFORMED BY: [facility] [address] [id number] Information: [id number] (52240) Note: PAPSMR (Normal) Comments: The Pap smear [...] present.V70.0 ; Routine general me dical examin [facility] centerSakyle Samayoa Manager Operations (ASCP) 0-Aun-150038:12 Urinalysis, Office (62007) UA - LEUKOCYTE ESTERASE Negative (Normal) UA - NITRITE Negative (Normal) URINE UROBILINGN KATHRYN TIMED Normal mg/dL (Normal) UA - PROTEIN Negative mg/dL (Normal) UA - PH 7.5 (Normal) UA - BLOOD Hemolyzed Trace (Normal) UA - SPECIFIC GRAVITY 1.015 (Normal) UA - KETONES Negative mg/dL (Normal) UA - BILIRUBIN Negative (Normal) UA - GLUCOSE Negative (Normal) 07-Ubg-390816:56 BILAT SCRN DIGITAL & CAD Radiology Report See Note (Normal) Comments: Exam Number: [id number] MAMMOGRAPHY - BILATERAL SCREENING INDICATION:Routine annual screening [...] of attaching a ResultCode to this exam.ADDENDUM: [id number] HPBI/MDS Reported By: JUSTICE GERARDO 27-Jul-2009 C-Reactive Protein, 9.8 mg/L Comments: PATIENT WAS FASTINGPERFORMED BY: [facility]Qvdbgg6127 [facility] [id number] 9:00 Quant (Abnormal) Range: 0.0-4.9 :00 CBC With Differential/Platelet Comments: PATIENT WAS FASTINGPERFORMED BY: [facility]Jsyeiy9000 [facility] [id number] Baso (Absolute) 0.0 {x10E3/uL} (Normal) Range: 0.0-0.2 [...] 3.80-5.10 WBC 4.2 {x10E3/uL} (Normal) Range: 4.0-10.5 70-Tcq-03355:00 Comp. Metabolic Panel (14) Comments: PATIENT WAS FASTINGPERFORMED BY: [facility]Vwhwpd5648 [facility] [id number] A/G Ratio 1.9 (Normal) Range: 1.1-2.5 Alkaline [...] Glucose, Serum 88 mg/dL (Normal) Range: 65-99 16-Zuj-94366:00 Lipid Panel With LDL/HDL Comments: PATIENT WAS FASTINGPERFORMED BY: [facility] Vvyclq5870 [facility] [id number] Ratio HDL Cholesterol 112 mg/dL (Normal) Comments: [...] COMMNT (Normal) Comments: PATIENT WAS FASTINGPERFORMED BY: [employer] Bluhrv6554 [facility] [id number] :00 Comments: Test not indicated.IF TESTING IS REQUESTED ON URINE CULTURE TUBE PLEASE CONTACTLAB WITHIN 3 DAYS.A urine culture transport was received with no test indicated. Iftesting is required on this specimen, pl ease contact the [facility] Inquiry/Technical Services Department to obtain a Request forWritten Authorization Form. :00 Urinalysis, Routine Comments: PATIENT WAS FASTINGPERFORMED BY: [employer] Bnhyfz6391 [facility] [id number] Microscopic Examination MICRON (Normal) Comments: Microscopic follows if indicated. Bilirubin Negative (Normal) Nitrite, Urine Negative (Normal) Occult Blood Negative (Normal) Urobilinogen,Semi-Qn 0.2 mg/dL (Normal) Range: 0.0-1.9 Glucose Negative (Normal) Ketones Negative (Normal) Protein Negative (Normal) Appearance Clear (Normal) pH 7.5 (Normal) Range: 5.0-7.5 Urine-Color Yellow (Normal) WBC Esterase Negative (Normal) Specific [place] 1.011 (Normal) Range: 1.005-1.030 Vitamin D, 25-Hydroxy 39.3 ng/mL (Normal) Comments: PATIENT WAS FASTINGPERFORMED BY: [facility] Vcrbms0144 [facility] [id number] :00 Range: 32.0-100.0 Comments: Recent studies consider the lower limit of 32.0 ng/mL to be athreshold for optimal health.Mike ESCOBAR. J Nutr. 2004;135(2):317-22. 92-Gwx-192269:47 Urinalysis, Office (11051) UA - LEUKOCYTE ESTERASE Negative (Normal) UA - NITRITE Positive (Normal) URINE UROBILINGN KATHRYN TIMED 2 mg/dL (Normal) UA - PROTEIN Negative mg/dL (Normal) UA - PH 6.5 (Normal) UA - BLOOD Hemolyzed Trace (Normal) UA - SPECIFIC GRAVITY 1.015 (Normal) UA - KETONES Negative mg/dL (Normal) UA - BILIRUBIN Negative (Normal) UA - GLUCOSE Negative (Normal) 4-Gcd-574320:51 URINE BOOGIE CULTURE-KATHRYN COL Comments: PATIENT NOT FASTINGPERFORMED BY: [employer] [facility] [id number] Information: SRC:UR [id number] COUNT (86805) Antimicrobial MIHEAD (Normal) Comments: S = Susceptible; [...] mL (Normal) Urine Final report (Normal) Culture,Comprehensive 4-Brz-230517:36 Urinalysis, Office (20088) UA - LEUKOCYTE ESTERASE Moderate (Normal) UA - NITRITE Negative (Normal) URINE UROBILINGN KATHRYN TIMED Normal mg/dL (Normal) UA - PROTEIN Negative mg/dL (Normal) UA - PH 6.0 (Normal) UA - BLOOD Hemolyzed Moderate (Normal) UA - SPECIFIC GRAVITY 1.010 (Normal) UA - KETONES Negative mg/dL (Normal) UA - BILIRUBIN Negative (Normal) UA - GLUCOSE Negative (Normal) 71-Atx-75408:19 URINE BOOGIE CULTURE-KATHRYN COL Comments: PATIENT NOT FASTINGClinical Information: SRC:UR G15015 PERFORMED BY: SupportBee6370 [facility] [id number] COUNT (94015) Result 1 Lactobacillus species Comments: 50,000-100,000 colony forming units per mL (Normal) Urine Final report (Normal) Culture,Comprehensive 65-Cdr-679848:56 Urinalysis, Office (43828) UA - BILIRUBIN Small (Normal) UA - [...] Report See Note (Normal) Comments: Exam Number: [id number] CLINICAL:Shortness of breath and back pain. CTA [...] 25-Hydroxy 49.7 ng/mL (Normal) Comments: PERFORMED BY: SupportBee6370 [facility] [id number] :01 Range: 32.0-100.0 Comments: Recent studies consider the lower limit of 32.0 ng/mL to be athreshold for optimal health.[facility]. J Nutr. 2004;135(2):317-22. 1-Sst-174032:14 CALCIFIDIOL (84829) VIT D 25 Comments: PATIENT WAS FASTINGClinical Information: ADD [id number] PERFORMED BY: SupportBee6370 [facility] [id number] Vitamin D, 25-Hydroxy 39.1 ng/mL (Normal) Range: 32.0-100.0 Comments: Recent studies consider the lower limit of 32.0 ng/mL to be athreshold for optimal health.[facility]. J Nutr. 2004;135(2):317-22. 1-Yqy-058474:14 CALCIUM SERUM (63497) Comments: PATIENT WAS FASTINGPERFORMED BY: SupportBee6370 [facility] [id number] Calcium, Serum 9.5 mg/dL (Normal) Range: 8.5-10.6 1-Pme-023116:14 PARATHORMONE (56131) Comments: PATIENT WAS FASTINGPERFORMED BY: internetstores70 [facility]CrossMediaNov[facility] [id number] PTH, Intact 28 pg/mL (Normal) Range: 15-65 :28 BONE SCAN WHOLE BODY Radiology Report See Note (Normal) Comments: Exam Number: [id number] CLINICAL DATAAbnormal lesion at the left iliac [...] Report See Note (Normal) Comments: Exam Number: [id number] CLINICAL DATAAbnormal lesion left iliac area seen [...] mg/dL VLDL 14 mg/dL (Normal) Range: 5-40 9-Jerzy-53001:33 VIT D,25 06755 25.8 ng/mL (Abnormal) Range: 32.0-100.0 Comments: Recent studies consider the lower limit of 32.0 ng/mL to mela threshold for optimal health.Mike ESCOBAR. J Nutr. 2004;135(2):317-22.Performed At: [facility]6370 [place], [place] [id number] 13-Att-413036:49 Urinalysis, Office (71909) UA - BILIRUBIN Negative (Normal) UA - BLOOD Hemolyzed Trace (Normal) UA - GLUCOSE Negative (Normal) UA - KETONES Negative mg/dL (Normal) UA - LEUKOCYTE ESTERASE Negative (Normal) Comments: aw UA - NITRITE Negative (Normal) UA - PH 6.0 (Normal) UA - PROTEIN Negative mg/dL (Normal) UA - SPECIFIC GRAVITY 1.010 (Normal) URINE UROBILINGN KATHRYN TIMED Normal mg/dL (Normal) 0-Nlj-959380:41 POST VOID RESIDUAL BLADDER Radiology Report See Note (Normal) Comments: Exam Number: [id number] ULTRASOUND OF THE KIDNEYS/POST VOID RESIDUAL URINARY [...] cm. Cortical echogenicity appears normal. There appear filp mild pelvic caliectasis predominantly involving th e mid to lowerpole of the kidney. Upper pole calyces appear relatively spared. Following voiding, the calculated bladder volume was approximately 52cc. IMPRESSION1) Right kidney was difficult to visualize. There was nohydronephrosis seen on the right. Left kidney demonstrates mildpelvic caliectasis in the mid to lower pole.2) Urinary bladder demonstrates a postvoid residual of wzzbesdgcewph84 cc. Reported By: JOANNE STORY M.D. :21 KIDNEY Radiology Report See Note (Normal) Comments: Exam Number: [id number] ULTRASOUND OF THE KIDNEYS/POST VOID RESIDUAL URINARY [...] Urinary bladder demonstrates a postvoid residual of iewedrlmcuhec28 cc. Reported By: JOANNE STORY M.D. 01-Feb-20088:49 Urinalysis, Office (18991) UA - BILIRUBIN Negative (Normal) UA - BLOOD Hemolyzed Trace (Normal) UA - GLUCOSE Negative (Normal) UA - KETONES Negative mg/dL (Normal) UA - LEUKOCYTE ESTERASE Trace (Normal) UA - NITRITE Negative (Normal) UA - PH 7.0 (Normal) UA - PROTEIN Negative mg/dL (Normal) UA - SPECIFIC GRAVITY 1.010 (Normal) URINE UROBILINGN KATHRYN TIMED Normal mg/dL (Normal) 34-Nxs-17692:45 Urinalysis, Office (03296) UA - BILIRUBIN Negative (Normal) UA - BLOOD Non Hemolyzed Trace (Normal) UA - GLUCOSE Negative (Normal) UA - KETONES Negative mg/dL (Normal) UA - LEUKOCYTE ESTERASE Negative (Normal) UA - NITRITE Negative (Normal) UA - PH 6.5 (Normal) UA - PROTEIN Negative mg/dL (Normal) UA - SPECIFIC GRAVITY 1.000 (Normal) URINE UROBILINGN KATHRYN TIMED Normal mg/dL (Normal) 8-Qaa-225134:50 Urinalysis, Office (93833) UA - BILIRUBIN Negative (Normal) UA - [...] Report See Note (Normal) Comments: Exam Number: [id number] RIGHT ELBOW 3 VIEWS CLINICAL STATEMENTFell off couch, pain. There is no fracture visible. Joint spaces are maintained with normalalignment. Fat pads are visible ante riorly but n ot elevatedposteriorly. IMPRESSIONNormal study. Reported By: ETHEL MONDRAGON M.D. :47 FOREARM,2 VIEWS Radiology Report See Note (Normal) Comments: Exam Number: [id number] RIGHT FOREARM - 2 VIEWS. CLINICAL STATEMENTPain. Fell off couch. FINDINGSRoutine views show no fracture, dislocation, joint abnormality, orsoft tissue calcification. IMPRESSIONNo rmal examination of the right forearm. Reported By: ETHEL MONDRAGON M.D. :47 WRIST,MIN 3 VIEWS Radiology Report See Note (Normal) Comments: Exam Number: [id number] RIGHT WRIST - 3 VIEWS. CLINICAL STATEMENTPain. Fell off cough. FINDINGSThere is no fracture. Joint spaces are maintained and normallyaligned. No erosion or soft tissue calcific ation is evident. IMPRESSIONNormal study. Reported By: ETHEL MONDRAGON M.D. :02 Thin prep Pap (37129) Comments: LMP / Prev Treat...SEB=[id number]. of containers..01 CYTYC Thin Prep VialPATIENT NOT FASTINGClinical Information: [id number] PERFORMED BY: LabAlyssa [place] [address] [facility] [id number] . . (Normal) DIAGNOSIS: SPRCS (Normal) Comments: NEGATIVE FOR INTRAEPITHELIAL LESION AND MALIGNANCY.Satisfactory for evaluation. Endocervical and/or squamous metaplasticcells (endocervical component) are present.V72.31 ; Routine gynecolog ical examina Hermes Hernandez, Supervisory Manager Operations (ASCP) Note: PAPSMR (Normal) Comments: The Pap [...] resulttherefore, no HPV testing was performed. . 77-Dkv-07622:29 BILAT SCRN DIGITAL & CAD Radiology Report See Note (Normal) Comments: Exam Number: [id number] BILATERAL SCREENING DIGITAL MAMMOGRAM CLINICAL INFORMATIONScreening. Bilateral [...] The mammogramswere also examined with computer-aided detection software(Dpivision.). Reported By: JOANNE STORY M.D. 5-Qhf-595673:06 Urine Culture,Comprehensive Comments: Clinical Information: SRC:UR PERFORMED BY: JAMIL [facility]6370 [facility] [id number] Result 1 MUG (Normal) Comments: Mixed urogenital ppywe929 Colonies/mL Urine Culture,Comprehensive Final report (Normal) 03-Jul-20078:43 Microscopic Examination Comments: PATIENT WAS FASTINGPERFORMED BY: JAMIL [facility]6370 [facility] [id number] Bacteria None seen (Normal) Crystal Type Amorphous Sediment (Normal) Crystals Present (Abnormal) Epithelial Cells (non renal) 0-10 {/hpf} (Normal) Range: 0 - 10 Mucus Threads Present (Abnormal) RBC 0-3 {/hpf} (Normal) Range: 0 - 3 WBC 11-30 {/hpf} (Abnormal) Range: 0 - 5 :43 Urinalysis, Routine Comments: PATIENT WAS FASTINGPERFORMED BY: [employer] ([employer]) Rgnaxg0913 [facility] [id number] Appearance Clear (Normal) Bilirubin Negative (Normal) Glucose Negative (Normal) Ketones Negative (Normal) Microscopic Examination See below: (Normal) Nitrite, Urine Negative (Normal) Occult Blood Negative (Normal) pH 7.0 (Normal) Range: 5.0-7.5 Protein Trace (Normal) Specific [place] 1.025 (Normal) Range: 1.005-1.030 Urine-Color Yellow (Normal) Urobilinogen,Semi-Qn 0.2 mg/dL (Normal) Range: 0.0-1.9 WBC Esterase 1+ (Abnormal) :43 CBC (Auto) (01624) Comments: PATIENT WAS FASTINGPERFORMED BY: internetstores70 [facility] [id number] Hematocrit 40.9 % (Normal) Range: 34.0-44.0 Hemoglobin 13.8 g/dL (Normal) Range: 11.5-15.0 MCH 30.1 pg (Normal) Range: 27.0-34.0 MCHC 33.6 g/dL (Normal) Range: 32.0-36.0 MCV 90 fL (Normal) Range: 80-98 Platelets 313 {x10E3/uL} (Normal) Range: 140-415 RBC 4.57 {x10E6/uL} (Normal) Range: 3.80-5.10 RDW 14.2 % (Normal) Range: 11.7-15.0 WBC 5.2 {x10E3/uL} (Normal) Range: 4.0-10.5 :43 Metabolic Panel, Comprehensive Comments: PATIENT WAS FASTINGPERFORMED BY: [employer] ([employer]) Ztjtya2766 [facility] [id number] (43363) A/G Ratio 1.7 (Normal) Range: 1.1-2.5 Albumin, [...] Serum 75 mg/dL (Normal) Range: 65-99 If -[place]atorial [place] >60 mL/min (Normal) Range: 60-128 Comments: Note: [...] mmol/L (Normal) Range: 135-145 03-Jul-20078:43 Lipid Panel (19014) Comments: PATIENT WAS FASTINGPERFORMED BY: [facility]Ppeghf3621 [facility] [id number] Cholesterol, Total 245 mg/dL (Abnormal) Range: 100-199 [...] Cholesterol Esau 13 mg/dL (Normal) Range: 5-40 39-Cfc-020771:47 Urinalysis, Office (84128) UA - BILIRUBIN Negative (Normal) UA - BLOOD Non Hemolyzed Trace (Normal) UA - GLUCOSE Negative (Normal) UA - KETONES Negative mg/dL (Normal) UA - LEUKOCYTE ESTERASE Negative (Normal) Comments: aw UA - NITRITE Negative (Normal) UA - PH 7.0 (Normal) UA - PROTEIN Negative mg/dL (Normal) UA - SPECIFIC GRAVITY 1.005 (Normal) URINE UROBILINGN KATHRYN TIMED Normal mg/dL (Normal) 60-Tps-483251:02 Urinalysis, Office (37596) UA - BILIRUBIN Negative (Normal) UA - BLOOD Non Hemolyzed Trace (Normal) UA - GLUCOSE Negative (Normal) UA - KETONES Negative mg/dL (Normal) UA - LEUKOCYTE ESTERASE Moderate (Normal) UA - NITRITE Negative (Normal) UA - PH 6.0 (Normal) UA - PROTEIN Negative mg/dL (Normal) UA - SPECIFIC GRAVITY 1.010 (Normal) URINE UROBILINGN KATHRYN TIMED 2 mg/dL (Normal) :45 Urinalysis, Office (34616) UA - BILIRUBIN Negative (Normal) UA - [...] ORDER RECEIVED ON FAX MACHINE 10/15/06 @ 9905 JUST PRIOR TOURINES FROM 10/14/06 BEING DISCARDED. [...] Report See Note (Normal) Comments: Exam Number: [id number] 4 VIEWS OF THE RIGHT KNEE AP, [...] Report See Note (Normal) Comments: Exam Number: [id number] 4 VIEWS OF THE RIGHT KNEE AP, [...] mg/dL VLDL 6 mg/dL (Normal) Range: 5-40 43-Civ-243603:27 C-REACTIVE PROT 16.90 mg/L (Abnormal) Range: 0.0-6.0 Comments: Test performed using the Dimension C-Reactive ProteinExtended Range assay method. This assay meets the AHA/CDC 2003 recommendations fordetermining patients at high risk for cardiovasculardisease. Reference: High risk CRP >3.0 mg/L :27 CBCD,SMEAR DIFF BASOPHIL 1 % (Normal) Range: [...] 47-70 WBC 4.6 K/mm3 (Normal) Range: 4.4-11.0 82-Zfz-925561:27 ESR SED RATE 7 mm/h (Normal) Range: [...] (I)) Planned Observations CBC with auto diff (13083)Indication: Benign essential hypertension On: 59-Pqu-651434:28 Request METABOLIC PANEL, COMPREHENSIVE (42381)Indication: Benign essential hypertension On: 62-Hge-986604:28 Request Thin Prep Pap (50032)Indication: Screening for cervical cancer On: 82-Crf-457449:00 Request Renal function Panel (90685)Indication: Benign essential hypertension On: 1-Con-147409:12 Request Thin Prep Pap (02105)Indication: Screening for cervical cancer On: :03 Request Thin Prep Pap ([id number])Indication: Well woman exam On: [id number] Request CALCIFIDIOL ([id number]) VIT D 25Indication: Vitamin D deficiency, unspecified On: :28 Request METABOLIC PANEL, COMPREHENSIVE ([id number])Indication: Benign essential hypertension On: :28 Request LIPID PANEL ([id number])Indication: Benign essential hypertension On: :28 Request CBC W/AUTO DIFF WBC ([id number])Indication: Benign essential hypertension On: :28 Request Urinalysis, Office ([id number])Indication: Dysuria On: :27 Request CBC (Auto) ([id number])Indication: Elevated blood-pressure reading without diagnosis of hypertension On: :23 Request CALCIFIDIOL ([id number]) VIT D 25 On: :23 Request Lipid Panel ([id number])Indication: Elevated blood-pressure reading without diagnosis of hypertension On: :23 Request Metabolic Panel, Comprehensive ([id number])Indication: Elevated blood-pressure reading without diagnosis of hypertension On: :23 Request URINALYSIS W MICROSCOPY ([id number])Indication: Dysuria On: [id number]-[id number]:50 Request URINALYSIS ([id number])Indication: Hypercholesterolemia On: 0-Hfv-809804:21 Request Metabolic Panel, Comprehensive ([id number])Indication: Hypercholesterolemia On: :47 Request Lipid Panel ([id number])Indication: Hypercholesterolemia On: :47 Request Planned Encounters Medical; RENETTAP 3 Month FU - On: 26-Mar-2018 10:00 [facility] Mónica Petty MD, MD, Dana M Planned Procedures DRAIN/INJECT MAJOR JOINT OR BURSA On: 17-Feb-2018 Intent ([id number])By: Mónica Petty MD Comments: 2 cc Marcaine lot # [id number] 1 cc Kenalog [id number] given in right knee per Dr. Petty intra articular Mónica HORNER Radiology - Knee - Right - Weight On: 17-Feb-2018 Intent BearingBy: Mónica Petty MD Comments: call with wet read Mónica HORNER MAMMOGRAM BREAST LEFT DIAGNOSTIC On: 11-Nov-2017 Intent ([id number])By: Mónica Petty MD, MD, Dana M LEFT BREAST ULTRASOUND ([id number])By: On: 11-Nov-2017 Intent Mónica Petty MD, MD, Dana M Pap Smear, Medicare ([id number])By: On: 27-Oct-2017 Intent Mónica Petty MD, MD, Dana M ELECTROCARDIOGRAM, COMPLETE (ECG) On: 22-Oct-2016 Intent ([id number])By: Mónica Petty MD Comments: see scanned document of test done to see results reviewed today with patient Mónica HORNER SCREENING DIGITAL TOMOSYNTHESIS OF On: 23-Sep-2016 Intent BREAST ([id number])By: Mónica Petty MD, MD, Dana M ZOSTER VACC, [place] ([id number])By: Jovanny On: 26-Dec-2015 Intent Mónica HORNER MD, Dana M Comments: Lot:[id number]:12/04/16Dose:1mLRoute:sub q Site: [place] By:KATHRINE signed TD VACCINE ADULT ([id number])By: Jovanny On: 26-Dec-2015 Intent Mónica HORNER MD, Dana M TDAP VACCINE >7 IM ([id number])By: Jovanny On: 26-Dec-2015 Intent Mónica HORNER MD, Dana M Comments: Lot:[id number]:04/13/18Dose:0.5mgRoute:imSite:r arm Given By:KATHRINE signed BILATERAL MAMMOGRAMS ([id number])By: On: 05-Dec-2015 Intent Mónica Petty MD, MD, Dana M MAMMOGRAM, SCREENING, BOTH BREAST On: 20-Oct-2014 Intent ([id number])By: Mónica Petty MD, MD, Dana M Radiology [...] MD, Dana M DEXA SCAN AXIAL SKELETON ([id number])By: On: 19-Oct-2013 Intent Mónica Petty MD, MD, Dana M MAMMOGRAM, SCREENING, BOTH BREASTS On: 22-Apr-2013 Intent ([id number])By: Mónica Petty MD, MD, Dana M Eprescribed prescriptions ([id number])By: On: 22-Apr-2013 Intent Mónica Petty MD, MD, Dana M SPECIMEN HANDLING/TRANSPORT On: 20-Nov-2011 Intent ([id number])By: Ion CURING ROOM WORKER, Mary IMMUNIZ ADMNIN, 1 VAC, SNGL/COMBO On: 05-Nov-2011 Intent ([id number])By: Kiera Kim LPN Comments: DECLINED FLU VAC, SPLIT, >3 YEARS, INTRAMUSC On: 05-Nov-2011 Intent ([id number])By: Kiera Kim LPN Comments: DECLINED Spirometry ([id number])By: Jovanny HORNER, On: 07-May-2011 Intent Mónica Gatica MD PNEUM VAC ADLT/IMUMNOSPR, SBC/INTRM On: 07-May-2011 Intent ([id number])By: Mónica Petty MD, MD, Dana M MAMMOGRAM, SCREENING, BOTH BREASTS On: 07-May-2011 Intent ([id number])By: Mónica Petty MD, MD, Dana M DXA, BONE DENSITY, AXIAL SKELETON On: 07-May-2011 Intent ([id number])By: Mónica Petty MD, MD, Dana M Nuclear Stress Test/Stress On: 24-Jul-2010 Intent SPECT/TreadmillBy: Jovanny HORNER, Mónica Gatica MD Echo CompleteBy: Mónica Petty MD On: 24-Jul-2010 Intent Mónica Petty MD MAMMOGRAM, SCREENING, BOTH BREASTS On: 24-Jul-2010 Intent ([id number])By: Mónica Petty MD, MD, Dana M EKG ([id number])By: FLOR Santana On: 24-Jul-[address] - Abdomen & Pelvis (IV Contrast On: 15-Mar-2010 Intent Needed)By: Alma Jansen DO Comments: call wiht wet read to doc emergency response technician MAMMOGRAM, SCREENING, BOTH BREASTS On: 07-Aug-2009 Intent ([id number])By: Mónica Petty MD, MD, Dana M CT - ChestBy: Alma Jansen DO On: 02-Nov-2008 Intent Comments: PE PROTOCOL Pulse Oximetry ([id number])By: Inderjit BECK, On: 02-Nov-2008 Intent Alma Bone Density StudyBy: Jovanny HORNER, On: 02-Aug-2008 Intent Mónica Gatica MD Nuclear Medicine - Bone ScanBy: On: 02-Aug-2008 Intent Jovanny HORNER, Mónica Petty MD, Mónica Mcarthur Ultrasound - RenalBy: Won Kellen AYERS On: 01-Feb-2008 Intent E SPECIMEN HANDLING/TRANSPORT On: 04-Jan-2008 Intent ([id number])By: Dang Song Radiology - Hand - RightBy: Cyrusmane On: 22-Oct-2007 Intent Kellen AYERS Radiology - Forearm - RightBy: Cyrusmane On: 22-Oct-2007 Intent Kellen AYERS MAMMOGRAM, SCREENING, BOTH BREASTS On: 02-Jul-2007 Intent ([id number])By: Jovanny HORNER, Mónica Petty MD, Mónica Mcarthur EKG ([id number])By: FLOR Santana On: 02-Jul-2007 Intent Spirometry ([id number])By: Max On: 02-Jul-2007 Intent FLOR Pulse Oximetry ([id number])By: Max, On: 02-Jul-2007 Intent FLOR Toradol Injection, 30 mg ([id number])By: On: 04-Sep-2006 Intent Jovanny HORNER, Mónica Petty MD, Mónica Mcarthur Solu -Medrol Injection, 125 mg On: 01-Apr-2006 Intent ([id number])By: Mónica Petty MD, MD, Dana M MAMMOGRAM, SCREENING, BOTH BREASTS On: 26-Feb-2006 Intent ([id number])By: Mónica Petty MD, MD, Dana M Planned [...] to access health information online Indication: Xuan [place]ovea : How to access health information online - Detail Indication: Xuan [place]ovea : Patient Instructions Indication: [place]uan [place] : How to access health information online Indication: [place]uan [place] : How to access health information online - Detail Indication: Xuan [place]ovea : Patient Instructions Indication: Wart BMI 24.0-24.9, [...] Benign essential hypertension Encounters Office Visit On: 17-Feb-2018 16:21 Encounter Diagnosis: Right knee pain, BMI 27.0-27.9,adult End: 17-Feb-2018 20:13 [facility] Office Visit On: 22-Dec-2017 [...] The patient does have durable power of divorce attorney and living will. The patient has [...] for Tdap vaccination (Renamed from Need for inseugynxl-vjkrjrr-foiqgatzh (Tdap) vaccine, adult/adolescent), Need for zoster vaccination [...] [facility] End: 11-Dec-2005 13:04 Payers MedicareAetrekha/[facility] supplement Jam [place]; mane guarantor
--- OUTSIDE RECORDS SUMMARY | 2018-05-22 05:29 | XMS RPT_ITS ---
:1950 Author Organization OHIP Support Name Relationship Address Phone SAMANTHA HUNTLEY Unavailable [address] + [place] [address] R Unavailable Unavailable Unavailable SAMANTHA HUNTLEY Unavailable [address] + [place] [address] R Unavailable Unavailable Unavailable SAMANTHA HUNTLEY Unavailable [address] + [place] [address] R Unavailable Unavailable Unavailable SAMANTHA HUNTLEY Unavailable [address] + [place] [address] R Unavailable Unavailable Unavailable SAMANTHA HUNTLEY Unavailable [address] + [place] [address] R Unavailable Unavailable Unavailable SAMANTHA HUNTLEY Unavailable [address] + [place] [address] R Unavailable Unavailable Unavailable SAMANTHA HUNTLEY Unavailable [address] + [place] [address] R Unavailable Unavailable Unavailable [employer] Unavailable [address] + [place] [address] SAMANTHA HUNTLEY Unavailable [address] + [place] [address] [employer] Unavailable [address] + [place] [address] SAMANTHA HUNTLEY Unavailable [address] + [place] [address] [employer] Unavailable [address] + [place] [address] SAMANTHA HUNTLEY Unavailable [address] + [place] [address] [employer] Unavailable [address] + [place] [address] YUKO SAMANTHA Unavailable [address] + [facility] [place] [address] [employer] Unavailable [address] + [place] [address] SAMANTHA HUNTLEY Unavailable [address] + [place] [address] Care Team Providers Name Role Phone Jovanny HORNER, Mónica Mcarthur Attending Unavailable Bonezzi , Mónica Mcarthur Referring Unavailable Bonezzi , Mónica Mcarthur Consulting Unavailable Bonezzi, Mónica Attending Unavailable Bonezzi, Mónica Referring Unavailable Bonezzi, Mónica Primary Care Unavailable Isckarus, Quentinour Attending Unavailable Bonezzi, Mónica Referring Unavailable Bonezzi, Mónica Primary Care Unavailable Isckarus, Angel Consulting Unavailable Isckarus, Angel Attending Unavailable Bonezzi, Mónica Primary Care Unavailable Bonezzi, Mónica Referring Unavailable Adilson Crawford Attending Unavailable Bonezzi, Mónica Referring Unavailable Bonezzi, Mónica Primary Care Unavailable Johann Drake Attending Unavailable Bonezzi, Mónica Referring Unavailable Bonezzi, Mónica Primary Care Unavailable Isckarus, Mansour Attending Unavailable Bonezzi, Mónica Primary Care Unavailable Isckarus, Mansour Consulting Unavailable Tamie Moreira Attending Unavailable Isckarus, Angel Attending Unavailable Bonezzi, Mónica Referring Unavailable Bonezzi, Mónica Primary Care Unavailable Isckarus, Mansour Consulting Unavailable Bonezzi, Mónica Attending Unavailable Bonezzi, Mónica Referring Unavailable Bonezzi, Mónica Primary Care Unavailable Rodney Leger Attending Unavailable Bonezzi, Mónica Referring Unavailable Bonezzi, Mónica Primary Care Unavailable Bonezzi, Mónica Consulting Unavailable Bonezzi, Mónica Attending Unavailable Bonezzi, Mónica Referring Unavailable Bonezzi, Mónica Primary Care Unavailable Isckarus, Mansour Attending Unavailable Bonezzi, Mónica Referring Unavailable Bonezzi, Mónica Primary Care Unavailable Isckarus, Mansour Consulting Unavailable PROBLEMS PROBLEMS DATE TYPE CONDITION / CODE ATTENDING STATUS SOURCE 12/12/2017 Unknown M85.80 - Other Isckarus, Active [place] specified [facility] disorders of bone Hospital density and Repository structure, unspecified site / M85.80(ICD-10) 12/12/2017 Unknown Z17.0 - Estrogen Isckarus, Active [place] receptor positive [facility] status [ER+] / Hospital Z17.0(ICD-10) Repository 12/12/2017 Unknown C50.911 - Isckarus, Active [place] Malignant neoplasm [facility] of unspecified Hospital site of right Repository female breast / C50.911(ICD-10) 12/12/2017 Unknown Z12.31 - Encounter Isckarus, Active [place] for screening [facility] mammogram for Hospital malignant neoplasm Repository of breast / Z12.31(ICD-10) 08/22/2017 Unknown I10 - Essential Noelle, [place] Active [place] (primary) [facility] hypertension / Hospital I10(ICD-10) Repository 06/18/2017 Unknown Z79.811 - Long Isckarus, Active [place] term (current) use [facility] aromatase Hospital inhibitors / Repository Z79.811(ICD-10) 06/18/2017 Unknown Z79.899 - Other Isckarus, Active [place] group home [facility] (current) drug Hospital therapy / Repository Z79.899(ICD-10) PROCEDURES PROCEDURES No Procedure Records FoundRESULTS RESULTS ONCOLOGY VISIT REPORT Observed: 03/17/2018 Status: F Source: [place] 11:39 AM [facility] REPOSITORY [facility] Medical Oncology [address] [place] [address] OFFICE VISIT Date of Service: 03/17/18 1056 MR#: [id number] Acct: [id number] Name: PARUL HUNTLEY Rep #: [id number] : 1950 From: Angel Shin MD Age/Sex: 67/F Location: OMD Status: Signed - Problem List (1) Primary cancer of right female breast Status: Chronic (2) Osteopenia Status: Chronic - Date of Service Date of Service:: 03/17/18 - Chief Complaint Breast cancer followup - History of Present Illness Patient is a 67-year-old female who had been compliant with screening mammography who in [...] lymphovascular invasion. Tumor is ER positive (95%) ME positive (40%) (and HER-2 not overexpressed. Patient [...] Review of Systems Constitutional:: Reports: - - Tolerable hot flashes. Denies: Fever, Sweats, Weight loss, Appetite change, Chills Cardiovascular:: Denies: Chest pain, Palpitations, Dyspnea on exertion, Orthopnea, PND, Shortness of breath Respiratory: Denies: Cough, Hemoptysis, Shortness of Breath, Wheezing Gastrointestinal:: Denies: Abdominal pain, Nausea, Vomiting, Diarrhea, Constipation, Hematochezia Genitourinary: Denies: Dysuria, Hematuria, 15, Flank pain Musculoskeletal:: Denies: Back pain, Myalgia, Arthralgia Skin: Denies: Rash, Skin Changes, Wounds Neurological:: Reports: - - Parkinson's disease well controlled. Denies: Headache, Dizziness, Visual changes, Tinnitus, Hearing loss Psychiatric: Denies: Anxiety, Depression, Homicidal Ideations, Suicidal Ideations Vital Signs Height 5 ft 2 in Weight: 64.954 kg Weight in Pounds 143.2 lbs Pulse Ox 100 - Physical Exam General: Alert, Oriented x3, [...] Neurological: Neuro grossly intact - No lateralization, - - Parkinsonian Skin:: Negative for: Lesions, Rash, Petechiae, Ecchymosis Psychiatric:: Appropriate affect, Euthymic Lymphatics:: Negative for: Cervical lymphadenopathy, Supraclavicular lymphadenopathy, Axillary lymphadenopathy Assessment and Plan 1- 67 year-old female with stage Ia (T1c, N0, M0) invasive lobular carcinoma of the right breast grade 2, ER positive, ME positive, HER-2/skylar not overexpressed. Patient is status post mastectomy with sentinel lymph node biopsy January 2017. Adequate negative margin. Oncotype DX score low risk group. Started systemic adjuvant hormonal therapy with an aromatase inhibitor for at least 5 years March 2017. Well-tolerated with no notable side effects. 2-progressive bone loss secondary to menopause with super added aromatase inhibitor therapy started March 2017. Advise continue vitamin D calcium supplement plus Prolia/6M. 3-annual mammogram to schedule, December 2018. Impression and recommendation discussed. Follow-up in 3 months Angel Shin MD Algebraist, Clinical [facility] Divisions of Medical Oncology AND Hematology Department of Internal Medicine [facility] [place] [address] Medications: Prescriptions This Visit Medication Instructions Recorded Anastrozole [Arimidex] 1 mg PO DAILY 90 Days #90 tab 09/11/17 Carbidopa/Levodopa 25/100 [Sinemet] 1 tablet PO TIDAC 12/15/17 Primary Care Provider: Mónica Petty Referring Provider: Angel Shin MD 03/17/18 9916 <Electronically signed by Angel Shin MD> Date Angel Shin MD Cosigner Signature: Date (if applicable) CC: Mónica Petty MD KNEE 4 OR MORE Observed: 02/17/2018 Status: F Source: [place] VIEWS 4:52 PM [facility] Imaging Services [address] [place] [address] Knee 4 or More Views MR#: [id number] Acct: [id number] Name: PARUL HUNTLEY Rep #: [id number] : 1950 F 67 From: Richard Romano MD PCP: Mónica Petty MD Status: REG CLI Study: Knee 4 or More Views Date of Exam: 02/17/18 Exam# [id number] Ordering Dr: Mónica Petty MD STUDY: X-RAY - RIGHT KNEE REASON FOR EXAM: Female, 67 years old. Right knee pain without acute injury. TECHNIQUE: 4 view(s) of the knee. COMPARISON: None. FINDINGS: Osteopenia. Mild DJD lateral compartment with minimal joint [...] Signed: Richard Romano MD at 17:49 EST Tel , Service support , CC: Mónica Petty MD Md Psychiatry: Signed ONCOLOGY VISIT REPORT Observed: 12/15/2017 Status: F Source: [place] 11:16 AM [facility] [address] [place] [address] OFFICE VISIT Date of Service: 12/15/17 1053 MR#: [id number] Acct: [id number] Name: PARUL HUNTLEY Rep #: [id number] : 1950 From: Angel Shin MD Age/Sex: 67/F Location: OMD Status: Signed - Problem List (1) Primary cancer of right female breast Status: Chronic (2) Osteopenia Status: Chronic - Date of Service Date of [...] lymphovascular invasion. Tumor is ER positive (95%) ME positive (40%) (and HER-2 not overexpressed. Patient made an uneventful recovery from her surgery. Oncotype DX testing showed her to be at low risk group with a score of 13. Her past medical history is notable for Parkinson's disease, hypertension and vitamin D deficiency state. No family history of breast cancer Treatment: February 12, 2017 she underwent a right [...] pain Musculoskeletal:: Reports: - - Nonspecific musculoskeletal aches and pains, manageable with Tylenol. Denies: Back pain, Myalgia, Arthralgia Skin: Denies: Rash, Skin Changes, Wounds Neurological:: Reports: - - Parkinson's. Denies: Headache, Dizziness, Visual changes, Tinnitus, Hearing loss Psychiatric: Denies: Anxiety, Depression, Homicidal Ideations, Suicidal Ideations Vital Signs Height 5 ft 2 in Weight: 65.771 kg Weight in Pounds 145.0 lbs Pulse Ox 97 - Physical Exam [...] lymphadenopathy, Supraclavicular lymphadenopathy, Axillary lymphadenopathy Diagnostic Data: Mammogram and ultrasound November 2017, no evidence to suggest malignancy Assessment and Plan 1- 67 year-old female with stage Ia (T1c, N0, M0) invasive lobular carcinoma of the right breast grade 2, ER positive, ME positive, HER-2/skylar not overexpressed. Patient is status post mastectomy with sentinel lymph node biopsy January 2017. Adequate negative margin. Oncotype DX score low risk group. Started systemic adjuvant hormonal therapy with an aromatase inhibitor for at least 5 years March 2017. Well-tolerated with no notable side effects. 2-progressive bone loss secondary to menopause with super added aromatase inhibitor therapy started March 2017. Advise continue vitamin D calcium supplement plus Prolia/6M. 3-annual mammogram to schedule, December 2018. Impression and recommendation discussed. Follow-up in 3 months Medications: Prescriptions This Visit Medication Instructions Recorded Anastrozole [Arimidex] 1 mg PO DAILY 90 Days #90 tab 09/11/17 Primary Care Provider: Mónica Petty Referring Provider: Angel Shin MD 12/15/17 1116 <Electronically signed by Angel Shin MD> Date Angel Shin MD Cosigner Signature: Date (if applicable) CC: BREAST LIMITED Observed: 11/17/2017 Status: F Source: [place] UNILATERAL 1:59 PM [facility] Imaging Services [address] [place], [place] [address] [address] Breast Limited Unilateral MR#: [id number] Acct: [id number] Name: PARUL HUNTLEY Rep #: [id number] : 1950 F 67 From: Justice Dahl MD PCP: Mónica Petty MD Status: REG CLI Study: Breast Limited Unilateral Date of Exam: 11/17/17 Exam# [id number] Ordering Dr: Mónica Petty MD STUDY: ULTRASOUND BREAST - LEFT REASON FOR EXAM: Female, 67 years old. Pain in the left breast. TECHNIQUE: Axial and longitudinal images of the LEFT breast were performed with a high resolution ultrasound transducer. COMPARISON: Comparison is made with prior mammogram done earlier in the day. FINDINGS: LEFT Breast: The entire left breast was examined by ultrasound. There is a homogeneous fibroglandular tissue. No solid or cystic mass lesion is seen. US/Breast Limited Unilateral IMPRESSION: Unremarkable sonographic evaluation of the left breast. Routine mammographic follow-up is recommended. ASSESSMENT CATEGORY: BIRADS Category 1: Negative. A letter regarding these results will be sent to the patient by the facility within 30 days. Electronically Signed: Justice Dahl MD at 8:37 EDT Tel [phone], Service support , CC: Mónica Petty MD Md Psychiatry: Signed DIAG MAMM W/CAD, Observed: 11/17/2017 Status: F Source: [place] UNIL 1:12 PM [facility] Imaging Services [address] [place] [address] DIAG MAMM W/CAD, UNILAT MR#: [id number] Acct: [id number] Name: GERMAN HUNTLEYLINE Pao Rep #: [id number] : 1950 F 67 From: Justice Dahl MD PCP: Mónica Petty MD Status: REG CLI Study: DIAG MAMM W/CAD, UNILAT Date of Exam: 11/17/17 Exam# [id number] Ordering Dr: Mónica Petty MD MAMMOGRAPHY - UNILATERAL DIAGNOSTIC: LEFT BREAST REASON FOR EXAM: Female, 67 years old. One-month history of left breast tenderness. PERTINENT HISTORY: Personal history of breast cancer. Prior right mastectomy. TECHNIQUE: Digital unilateral breast chad (3D mammographic acquisition) in the CC and MLO projections. 2-D mediolateral oblique (MLO) and craniocaudad (CC) views of both breasts were obtained. CAD: Full Field Digital Mammography with Computer Added Detection was performed. COMPARISON: Comparison is made with prior study dated December 26, 2016. FINDINGS: Breast Composition: The breasts are heterogeneously dense, which may obscure small masses. There are no dominant masses or suspicious calcifications. No other significant abnormalities are identified. There has been no significant change since the prior study. BI/DIAG MAMM W/CAD, UNILAT IMPRESSION: Stable unilateral diagnostic mammogram. With the patient's history of left breast tenderness, correlation with ultrasound is recommended. ASSESSMENT CATEGORY: BIRADS Category 0: Incomplete. Need additional imaging evaluation. A letter regarding these results will be sent to the patient by the facility within 30 days. Approximately 10% of breast cancers are not detected by mammography. A normal mammogram should not delay biopsy of a clinically suspicious abnormality. Electronically Signed: Justice Dahl MD at 14:13 EDT Tel [phone], Service support , CC: Mónica Petty MD Md Psychiatry: Signed LIMITED CHEST CT Observed: 11/06/2017 Status: F Source: [place] W/CCTA 1:40 PM [facility] Imaging Services [address] [place] [address] w/CCTA MR#: [id number] Acct: [id number] Name: PARUL HUNTLEY Rep #: [id number] : 1950 F 67 From: Farhat Montalvo DO PCP: Mónica Petty MD Status: REG CLI Study: Limited Chest CT w/CCTA Date of Exam: 11/06/17 Exam# [id number] Ordering Dr: Mónica Petty MD STUDY: CARDIAC CALCIUM SCORING - CT CHEST REASON FOR EXAM: Female, 67 years old. Elevated cholesterol. History of breast cancer. RADIATION DOSAGE (If Supplied By Facility): CTDIvol = ( 12.19 ) mGy, DLP = ( 243.79 ) mGycm TECHNIQUE: Axial non-enhanced images were acquired through the heart for the sole purpose of measuring coronary artery calcium. Individualized dose optimization techniques were used for this CT. COMPARISON: Chest, January 26, 2013. FINDINGS: This portion of the report is being generated solely for the evaluation of noncoronary artery structures which have been assessed on plain another report. The visualized lungs are clear. The heart is normal in size. Normal pericardium. Normal mediastinum and vazquez. Normal pulmonary arteries. There is minimal atherosclerotic changes of the thoracic aorta without aneurysm. Normal thoracic spine. There is absence of the right breast. Normal visualized upper abdomen. CT/Limited Chest CT w/CCTA IMPRESSION: 1. Status post right mastectomy. 2. There is no intrathoracic abnormality. Electronically Signed: Farhat Montalvo DO at 18:54 EDT Tel [phone], Service support , CC: Mónica Petty MD Md Psychiatry: Signed ONCOLOGY VISIT REPORT Observed: 09/11/2017 Status: F Source: [place] 11:20 AM [facility] [address] [place] [address] OFFICE VISIT Date of Service: 09/11/17 1038 MR#: [id number] Acct: [id number] Name: PARUL HUNTLEY Rep #: [id number] : 1950 From: Angel Shin MD Age/Sex: 67/F Location: OMD Status: Signed - Problem List (1) Primary cancer of right female breast Status: Chronic (2) Osteopenia Status: Chronic - History of Present Illness Patient [...] lymphovascular invasion. Tumor is ER positive (95%) ME positive (40%) (and HER-2 not overexpressed. Patient [...] Review of Systems Constitutional:: Reports: - - Activities limited by Parkinson's No hot flashes. Denies: [...] - - Parkinson's. Denies: Headache, Dizziness, Visual changes, Tinnitus, Hearing loss Psychiatric: Denies: Anxiety, Depression, Homicidal Ideations, Suicidal Ideations Comment: No lumps in breasts Vital Signs Height 5 ft 2 in Weight: 66.043 kg Weight in Pounds 145.6 lbs Pulse Ox 94 - Physical [...] Neuro grossly intact - With parkinsonian features and tremor Skin:: Negative for: Lesions, Rash, Petechiae, Ecchymosis Psychiatric:: Appropriate affect, Euthymic Lymphatics:: Negative for: Cervical lymphadenopathy, Supraclavicular lymphadenopathy, Axillary lymphadenopathy Assessment and Plan 1- 66-year-old female with stage Ia (T1c, N0, M0) invasive lobular carcinoma of the right breast grade 2, ER positive, ME positive, HER-2/skylar not overexpressed. Patient is status post mastectomy with sentinel lymph node biopsy January 2017. Adequate negative margin. Oncotype DX score low risk group. Started systemic adjuvant hormonal therapy with an aromatase inhibitor for at least 5 years March 2017. Well-tolerated with no notable side effects. 2-progressive bone loss secondary to menopause with super added aromatase inhibitor therapy started March 2017. Advise continue vitamin D calcium supplement plus Prolia/6M. 3-annual mammogram to schedule, December 2017. Impression and recommendation discussed. Follow-up in 3 months Medications: Prescriptions This Visit Medication Instructions Recorded Anastrozole [Arimidex] 1 mg PO DAILY 90 Days #90 tab 06/12/17 Primary Care Provider: Mónica Petty Referring Provider: Angel Shin MD 09/11/17 1120 <Electronically signed by Angel Shin MD> Date Angel Shin MD Cosigner Signature: Date (if applicable) CC: Mónica Petty MD CBC W/DIFF, AUTOMATED Collected: 09/11/2017 Status: F Source: [place] 10:27 AM [facility] Order Comment: Reason for Laboratory Test . TYPE CODE TESTS RESULT OUT OF RANGE REFERENCE UNITS LAB L100.1000 4.4-11.0 K/mm3 Normal WBC 5.0 LAB L100.1200 4.2-5.4 M/mm3 Normal RBC 4.43 LAB L100.1300 12.0-15.0 g/dl Normal HGB 12.9 LAB L100.1400 37-47 % Normal HCT 40.4 LAB L100.1500 81-99 fL Normal MCV 91.2 LAB L100.1600 27.0-32.0 pg Normal MCH 29.1 LAB L100.1700 32-36 g/gl Low MCHC 31.9 LAB L100.1810 11.6-14.6 % Normal RDW CV 14.3 LAB L100.1820 35.1-43.9 fl High RDW SD 48.2 LAB L100.1900 150-450 K/mm3 Normal PLT 291 LAB L100.2000 6.2-12.0 fl Normal MPV 9.5 LAB L100.2100 47-70 % Normal NEUT% 67.5 LAB L100.2200 19-41 % Normal LY% 21.8 LAB L100.2300 0-10 % Normal MONO% 8.5 LAB L100.2400 0-5 % Normal EO% 1.6 LAB L100.2500 0-1 % Normal BASO% 0.6 LAB L100.2550 0.0-0.9 % Normal IM GRAN % 0.000 Result Comment: IG% - Immature Granulocytes (promyelocytes, myelocytes and metamyelocytes) > 1% indicates that a LEFT SHIFT is Present. LAB L100.2620 2.0-7.7 X10 3/uL Normal Absolute Neut 3.4 LAB L100.2720 0.83-4.51 X10 3/ul Normal Absolute Lymph 1.08 Performed By: #### L100.0100, L500.4050 #### [facility] [address] [place], [place], [id number] COMPREHENSIVE METABOLIC Collected: 09/11/2017 Status: F Source: [facility] 10:27 AM [facility] Order Comment: Reason for Laboratory Test . TYPE CODE TESTS RESULT OUT OF RANGE REFERENCE UNITS LAB L501.0100 74-106 mg/dL Normal GLU 87 Result Comment: Please note revised GLUCOSE reference range effective 2017. LAB L501.1000 7-18 mg/dL Normal BUN 12 LAB L501.1100 0.55-1.02 mg/dL Normal CREAT,SERUM 0.99 Result Comment: The validity of the calculated GFR AND GFRAA in patients over 70 years has not been determined. Clinical correlation is essential. LAB L501.1110 >60 mL/min Normal EST GFR 60 Result Comment: Non- GFR Calc LAB L501.1115 >60 mL/min Normal EST GFR - AA 72 Result Comment: GFR Calc LAB L501.1255 ml/min Normal Estimated CRCL 44.21 LAB L501.1300 10-20 RATIO Normal BUN/CRE 12.1 LAB L501.1500 6.4-8. g/dL Normal 2 T PROT 7.9 LAB L501.1800 3.2-5. g/dL Normal 0 ALB 4.0 LAB L501.1950 2.2-4. g/dL Normal 2 GLOB 3.9 LAB L501.2000 0.9-2. RATIO Normal 4 A/G 1.0 LAB L501.2200 8.5-10 mg/dL Normal .1 CA 9.1 LAB L501.4100 15-37 U/L Normal AST 18 LAB L501.4305 45-117 U/L Normal ALK P 58 LAB L501.4405 13-56 U/L Normal ALT 34 LAB L501.4600 0.20-1 mg/dL Normal .00 T BILI 0.40 LAB L501.5300 136-14 mmol/L Normal 5 NA 139 LAB L501.5600 3.5-5. mmol/L Normal 1 K 4.2 LAB L501.5900 98-107 mmol/L Normal CL 104 LAB L501.6100 21.0-3 mmol/L Normal 2.0 CO2 29.0 LAB L501.6200 5-15 Normal GAP 6 Performed By: #### L100.0100, L500.4050 #### [facility] [address] [place], [place], [address] CARDIOLOGY VISIT Observed: 08/22/2017 Status: F Source: [place] REPORT 10:55 AM [facility] [address] [place] [address] OFFICE VISIT Date of Service: 08/22/17 MR#: [id number] Acct: [id number] Name: PARUL HUNTLEY Rep #: [id number] : 1950 Provider: Johann Drake MD Age/Sex: 67/F Location[place] [facility] Status: Signed HPI [facility] Chief Complaint: Follow-up visits. Details: PARUL HUNTLEY, is a 67 F who presents to the office today for a follow-up [...] her medication or whether from her previous experience of breast cancer. She has had no neck arm or jaw discomfort suggest angina her physical exam today demonstrates clear lung melara regular rate and rhythm bradycardia and normal blood pressures. Intake Vital Signs08/22/17 Height 5 ft 2 in 08/22/17 Weight: 147 lb 08/22/17 Body Mass Index (BMI) 26.9 08/22/17 Blood Pressure 140/80 Intake Visit Reasons: 1 Y FU (we moved from 4-10) [employer]ruiting Internship Required: No Is patient in pain?: No Allergies sulfamethoxazole [From Bactrim] Allergy (Verified 08/22/17 10:40) Swelling trimethoprim [From Bactrim] Allergy (Verified 08/22/17 10:40) Swelling Medications Cholecalciferol (Vitamin D3) [Vitamin D3] 5,000 unit PO QHS 02/10/17 [History Confirmed 06/12/17] Fluticasone/Salmeterol [Advair 250-50 Diskus] 1 ea IH BID 02/10/17 [History Confirmed 08/22/17] Ranitidine [Zantac] 150 mg PO DAILY PRN PRN 02/10/17 [History Confirmed 08/22/17] Rotigotine [Neupro] 1 patch TRANSDERM. DAILY 02/10/17 [History Confirmed 08/22/17] Breast Prosthesis #1 ea 03/04/17 [Rx Confirmed 08/22/17] Mastectomy Bra #4 ea 03/05/17 [Rx Confirmed 04/04/17] Anastrozole [Arimidex] 1 mg PO DAILY 90 Days #90 tab 06/12/17 [Rx Confirmed 08/22/17] Mastectomy bra #12 ea 06/12/17 [Rx] denosumab 120 mg/1.7 mL (70 mg/mL) subcutaneous solution 120 mg SC .COMPLEX 08/22/17 [History Confirmed 08/22/17] lisinopril 40 mg tablet 40 mg PO QDAY #90 tab 08/22/17 [Rx Confirmed 08/22/17] pramipexole 0.75 mg tablet 0.75 mg PO TID tab 08/22/17 [History Confirmed 08/22/17] Ejection fraction %: 60 to 64 [facility] Medical History Parkinson disease (Chronic) Osteopenia (Chronic) Nonrheumatic mitral (valve) insufficiency (Chronic) Sinus bradycardia (Chronic) HLD (hyperlipidemia) (Chronic) HTN (hypertension) (Chronic) Estrogen receptor positive status [ER+] (Chronic) 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) Asthma (Chronic) Estrogen receptor positive status (ER+) (Chronic) GERD (gastroesophageal reflux disease) (Chronic) INVASIVE LOBULAR CARCINOMA RIGHT BREAST (Chronic) Ptosis of breast (Chronic) Disproportion of [...] Eyes: Negative for blind spots, loss of peripheral vision, transient loss of vision, blurry vision, change in vision, double vision, floaters, tunnel vision or other ENT ENT: Negative for headache(s), dizziness, hearing loss, tinnitus, Nosebleed/epistaxis, balance problems, post nasal drip, lip swelling, tongue swelling, bleeding gums, hoarseness, neck pain, dry mouth or other Cardio Chest Pain: No Palpitations: No Edema: None Muscle aches with walking: None Resp Respiratory: Positive for Cough; negative [...] syncope, orthostatic symptoms, confusion, memory loss, restless legs, vertigo, seizures, lack of coordination or other [place]aine Hematologic/Lymphatic: Negative for easy bleeding, easy bruising, enlarged lymph nodes or other Endo Endo: Negative for fatigue, excessive sweating, cold intolerance, heat intolerance, flushing, increased thirst/drinking, increased hunger, hair loss, hair growth or other Psych Psych: Negative for anxiety, depression, thoughts of harming anyone, thoughts of harming yourself, visual hallucinations, panic attacks or audible hallucinations Allergy Allergy/Immunology: Negative for lip swelling, Negative for tongue swelling, Negative for rash, Negative for throat swelling, Negative for hives Cardiology Exam Const Appearance: cooperative, healthy appearing, well developed, well groomed and no acute distress Nutritional Appearance: well nourished and average body habitus Orientation: alert, awake [...] appearance normal, both eyes and all related structures Eyelids: eyelids normal Conjunctivae: conjunctivae normal Pupils: PERRL, normal by confrontation and accommodation normal EOM: EOM intact bilaterally Neck Neck: normal visual inspection, trachea midline and no JVD JVD: +5 Carotids: normal carotid upstroke and bounding pulses Chest Chest inspection: normal inspection of the chest, symmetric chest movement and normal respiratory effort Auscultation: Bilateral: Clear to Auscultation Cardio Palpation: normal PMI Rate: regular rate Rhythm: regular rhythm Heart sounds: S1 normal, S2 normal and normal, physiologic split S2; negative rub, gallop or murmur GI GI: normal to inspection, soft, no hepatosplenomegaly and bowel sounds present Neuro General: alert, awake, oriented x3, no focal sensory deficit, gait normal and moves all extremities Skin Skin: no rashes or lesions noted Extremities Pulses: Normal: Right Femoral Pulse, Left Femoral Pulse, Right Dorsalis Pedis Pulse, Left Dorsalis Pedis Pulse, Right Posterior Tibial Pulse, Left Posterior Tibial Pulse, Right Radial Pulse, Left Radial Pulse Lower Extremity Edema: None: Bilateral Musculoskel Musculoskeletal: No joint tenderness Psych Psychological: normal affect Assessment AND Plan 1. 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) Coding Level of Care Code Off vis,est,level 3 Diagnoses Essential hypertension I10 Hypertension type: essential hypertension Coding Level of Care Code Off vis,est,level 3 Diagnoses Essential hypertension I10 Hypertension type: essential hypertension 08/22/17 1055 <Electronically signed by Johann Drake MD> Date Johann Drake MD Cosigner Signature: Date (if applicable) CC: Mónica Petty MD ONCOLOGY VISIT REPORT Observed: 06/12/2017 Status: F Source: [place] 11:36 AM [facility] [address] [place] [address] OFFICE VISIT Date of Service: 06/12/17 1108 MR#: [id number] Acct: [id number] Name: PARUL HUNTLEY Rep #: [id number] : 1950 From: Angel Shin MD Age/Sex: 66/F Location: OMD Status: Signed - Problem List (1) Primary cancer of right female breast Status: Acute (2) Osteopenia Status: Chronic - Date of Service Date of [...] lymphovascular invasion. Tumor is ER positive (95%) ME positive (40%) (and HER-2 not overexpressed. Patient [...] for: Cyanosis, Edema Neurological: Neuro grossly intact Skin:: Negative for: Lesions, Rash, Petechiae, Ecchymosis Psychiatric:: Appropriate affect, Euthymic Lymphatics:: Negative for: Cervical lymphadenopathy, Supraclavicular lymphadenopathy, Axillary lymphadenopathy Diagnostic Data: Bone density March 2017: IMPRESSION: The patient is considered osteopenic as outlined according to World Cal Organization (WHO) criteria with a moderate fracture risk. There has been worsening of bone density since the previous examination. Assessment and Plan 1- 66-year-old female with stage Ia (T1c, N0, M0) invasive lobular carcinoma of the right breast grade 2, ER positive, ME positive, HER-2/skylar not overexpressed. Patient is status post mastectomy with sentinel lymph node biopsy January 2017. Adequate negative margin. Oncotype DX score low risk group. Started systemic adjuvant hormonal therapy with an aromatase inhibitor for at least 5 years March 2017. Well-tolerated with no notable side effects. 2-progressive bone loss secondary to menopause with super added aromatase inhibitor therapy started March 2017. Advise continue vitamin D calcium supplement plus Prolia. Impression and recommendation discussed. Follow-up in 3 months Medications: Prescriptions This Visit Medication Instructions Recorded Anastrozole [Arimidex] 1 mg PO DAILY #30 tab 03/18/17 Primary Care Provider: Mónica Petty Referring Provider: Angel Shin MD 06/12/17 1136 <Electronically signed by Angel Shin MD> Date Angel Shin MD Cosigner Signature: Date (if applicable) CC: Mónica Petty MD CBC W/DIFF, AUTOMATED Collected: 06/12/2017 Status: F Source: [place] 10:55 AM [facility] Order Comment: Reason for Laboratory Test . TYPE CODE TESTS RESULT OUT OF RANGE REFERENCE UNITS LAB L100.1000 4.4-11.0 K/mm3 Normal WBC 4.6 LAB L100.1200 4.2-5.4 M/mm3 Normal RBC 4.48 LAB L100.1300 12.0-15.0 g/dl Normal HGB 13.1 LAB L100.1400 37-47 % Normal HCT 40.3 LAB L100.1500 81-99 fL Normal MCV 90.0 LAB L100.1600 27.0-32.0 pg Normal MCH 29.2 LAB L100.1700 32-36 g/gl Normal MCHC 32.5 LAB L100.1810 11.6-14.6 % Normal RDW CV 14.1 LAB L100.1820 35.1-43.9 fl High RDW SD 46.1 LAB L100.1900 150-450 K/mm3 Normal PLT 284 LAB L100.2000 6.2-12.0 fl Normal MPV 10.0 LAB L100.2100 47-70 % Normal NEUT% 61.5 LAB L100.2200 19-41 % Normal LY% 27.2 LAB L100.2300 0-10 % Normal MONO% 7.6 LAB L100.2400 0-5 % Normal EO% 2.4 LAB L100.2500 0-1 % High BASO% 1.1 LAB L100.2550 0.0-0.9 % Normal IM GRAN % 0.200 Result Comment: IG% - Immature Granulocytes (promyelocytes, myelocytes and metamyelocytes) > 1% indicates that a LEFT SHIFT is Present. LAB L100.2620 2.0-7.7 X10 3/uL Normal Absolute Neut 2.9 LAB L100.2720 0.83-4.51 X10 3/ul Normal Absolute Lymph 1.26 Performed By: #### L100.0100, L506.1000 #### [facility] [address] [place], [place], [address] VITAMIN D,25 HYDROXY Collected: 06/12/2017 Status: F Source: [place] 10:55 AM [facility] Order Comment: Reason for Laboratory Test . TYPE CODE TESTS RESULT OUT OF RANGE REFERENCE UNITS LAB L506.1000 29.95-100.01 ng/mL Normal Vitamin D 33.6 25-OH Result Comment: Vitamin D 25(OH) Status Range Deficiency <20 ng/mL (50nmol/L) Insuffciency 20 - 30 ng/mL (50 - 75 nmol/L) Sufficiency 30 - 100 ng/mL (75 - 250 nmol/L) Toxicity >100 ng/mL (>250 nmol/L) Performed By: #### L100.0100, L506.1000 #### [facility] [address] [place], [address] COMPREHENSIVE METABOLIC Collected: 06/12/2017 Status: F Source: [place] MCINTOSH 10:55 AM [facility] Order Comment: Reason for Laboratory Test . TYPE CODE TESTS RESULT OUT OF RANGE REFERENCE UNITS LAB L501.0100 74-106 mg/dL Normal GLU 98 Result Comment: Please note revised GLUCOSE reference range effective 2017. LAB L501.1000 7-18 mg/dL Normal BUN 17 LAB L501.1100 0.55-1.02 mg/dL Normal CREAT,SERUM 0.97 Result Comment: The validity of the calculated GFR AND GFRAA in patients over 70 years has not been determined. Clinical correlation is essential. LAB L501.1110 >60 mL/min Normal EST GFR 61 Result Comment: Non- GFR Calc LAB L501.1115 >60 mL/min Normal EST GFR - AA 74 Result Comment: GFR Calc LAB L501.1255 ml/min Normal Estimated CRCL 45.73 LAB L501.1300 10-20 RATIO Normal BUN/CRE 17.5 LAB L501.1500 6.4-8. g/dL Normal 2 T PROT 7.3 LAB L501.1800 3.2-5. g/dL Normal 0 ALB 3.7 LAB L501.1950 2.2-4. g/dL Normal 2 GLOB 3.6 LAB L501.2000 0.9-2. RATIO Normal 4 A/G 1.0 LAB L501.2200 8.5-10 mg/dL Low .1 CA 8.3 LAB L501.4100 15-37 U/L Normal AST 17 LAB L501.4305 45-117 U/L Normal ALK P 76 LAB L501.4405 13-56 U/L Normal ALT 21 Result Comment: Please note revised ALT reference range effective 2017. LAB L501.4600 0.20-1.00 mg/dL Normal T BILI 0.40 LAB L501.5300 136-145 mmol/L Normal NA 141 LAB L501.5600 3.5-5.1 mmol/L Normal K 4.1 LAB L501.5900 98-107 mmol/L Normal CL 107 LAB L501.6100 21.0-32.0 mmol/L Normal CO2 28.0 LAB L501.6200 5-15 Normal GAP 6 Performed By: #### L500.4050 #### [facility] [address] [place], [address] SURGERY VISIT REPORT Observed: 04/04/2017 Status: F Source: [place] 1:54 PM [facility] [address] [place] [address] OFFICE VISIT Date of Service: 04/04/17 MR#: [id number] Acct: [id number] Name: PARUL HUNTLEY Rep #: [id number] : 1950 Provider: Adilson Crawford MD Age/Sex: 66/F Location: [facility] Status: Signed Intake Intake Visit Reasons: 1 M FU Mastectomy Recruiting Internship Required: No Is patient in pain?: No Allergies sulfamethoxazole [From Bactrim] Allergy (Verified 04/04/17 13:06) Swelling trimethoprim [From Bactrim] Allergy (Verified 04/04/17 13:06) Swelling Medications Lisinopril [Zestril] 20 mg PO DAILY 01/26/13 [History Confirmed 04/04/17] Cholecalciferol (Vitamin D3) [Vitamin D3] 5,000 unit PO QHS 02/10/17 [History Confirmed 04/04/17] Fluticasone/Salmeterol [Advair 250-50 Diskus] 1 ea IH BID 02/10/17 [History Confirmed 04/04/17] Propranolol HCl [Propranolol HCl ER] 60 mg PO DAILY 02/10/17 [History Confirmed 04/04/17] Ranitidine [Zantac] 150 mg PO DAILY PRN PRN 02/10/17 [History Confirmed 04/04/17] Rotigotine [Neupro] 1 patch TRANSDERM. DAILY 02/10/17 [History Confirmed 04/04/17] Ubidecarenone/Vitamin E Mixed [Xmc62-Hcw E 200 mg-20 Unit Sfg] 1 ea PO DAILY 02/10/17 [History Confirmed 04/04/17] Breast Prosthesis #1 ea 03/04/17 [Rx Confirmed 04/04/17] Mastectomy Bra #4 ea 03/05/17 [Rx Confirmed 04/04/17] Anastrozole [Arimidex] 1 mg PO DAILY #30 tab 03/18/17 [Rx Confirmed 04/04/17] [facility] Medical History Ptosis of breast (Chronic) Estrogen receptor positive status [ER+] (Acute) Disproportion of reconstructed breast (Acute) Acquired absence of right breast and [...] Other: The patient's right breast incision is clean dry and intact. The blue dye is fading. There is no sign of infection. Assessment AND Plan Problems 1. Primary cancer of right female breast C50.911 Plan 1. The patient is doing well. She is still debating delayed reconstruction and will see Dr. Gm Yeager if she decides on it. She is doing well with her prosthetic. I will see her back in 1 year to follow-up. Adilson Crawford MD Pager: [facility] [address] [place] [address] Office: Coding Level of Care Code Global Post Op Diagnoses Primary cancer of right female breast C50.911 04/04/17 1354 <Electronically signed by Adilson Crawford MD> Date Aidlson Crawford MD Cosigner Signature: Date (if applicable) CC: Mónica Petty MD ALLERGIES ALLERGIES DATE TYPE / CODE NAME / CODE REACTION SEVERITY SOURCE 03/17/2018 Drug sulfamethoxa Swelling [facility] Allergy/4160 zole/[id number] Hospital [facility](SNOMED 827(RXNORM) Repository CT) 03/17/2018 Drug trimethoprim Swelling [facility] Allergy/4160 /[id number]( Hospital 43022(SNOMED RXNORM) Repository CT) ENCOUNTERS ENCOUNTERS ADMIT/DISCHARGE ACCOUNT ADMITTING ENCOUNTER LOCATION SOURCE NUMBER CLASS 03/17/2018 [id number] [facility] 8 [facility] ing:OMD Repository 03/17/2018 [id number] Ambulatory BMSBuilding:B [place] 9 MS.CF.Critical access hospital Repository 03/16/2018 [id number] Ambulatory Building:[facility] Practices Repository 02/17/2018 [id number] Ambulatory [address] ing:MTRAD Repository 12/15/2017 [id number] Ambulatory BMSBuilding:B [place] 6 MS.CF.Critical access hospital Repository 11/17/2017 [id number] Ambulatory [facility] 5 [facility] ing:OPBI Repository 11/07/2017 [id number] Ambulatory BMSBuilding:B [place] 9 MS.CF.[facility] Repository 11/06/2017 [id number] Ambulatory [facility] 4 [facility] ing:CT Repository 09/11/2017 [id number] Ambulatory BMSBuilding:B [place] 5 MS.CF.Critical access hospital Repository 08/22/2017/ [id number] Ambulatory BMSBuilding:B [place] 8 8 MS.[facility] Repository 08/21/2017 [id number] Ambulatory BMSBuilding:B [place] 2 MS.[facility] Repository 06/12/2017 [id number] Ambulatory BMSBuilding:B [place] 8 MS.CF.Critical access hospital Repository 04/04/2017/ [id number] Ambulatory BMSBuilding:B [place] 8 8 MS.[facility] Repository PAYERS PAYERS ENCOUNTER GUARANTOR PAYER SUBSCRIBER SOURCE 03/17/2018 SAMANTHA Bragg Primary PARULJENNIFER Narayanoster [id number] [address] Insurance:MEDICARE CRILOWDOB: [place] PART A [facility] [id number] Hospital [address]Cqo: (330) Number: Repository [phone] () [id number] Date:2017-02-26 03/17/2018 Secondary PARUL S [place] Insurance:MEDICAL CRILOWDOB: [facility] [id number] Hospital Number: Repository [id number] Date:4717-12-15CM[address] [address]ER: 03/17/2018 Tertiary NOT GIVENUNK [place] Insurance:SELF PAY [facility] Number: Effective Repository Date:2017-02-26 03/17/2018 SAMANTHA Bragg Primary PARUL S [place] [id number] [address] Insurance:MEDICARE CRILOWDOB: [place] PART A [facility] [id number] Hospital [address]Ugu: (330) Number: Repository [phone] () [id number] Date:2017-02-26 03/17/2018 Secondary PRAUL S [place] Insurance:MEDICAL CRILOWDOB: [facility] [id number] Hospital Number: Repository [id number] Date:9559-40-[address] [address]HQ: 03/17/2018 Tertiary NOT GIVENUNK [place] Insurance:SELF PAY [facility] Number: Effective Repository Date:2018-03-17 03/16/2018 PARUL S Primary PARUL S OHIP Practices CRILOWDOB: Insurance:MedicarePol CRILOWDOB: Repository icy Number: [id number] [facility] [id number] [address] [facility] [address] Date:2630-64-58Kdlv Drive [place], [place] Name:[employer] CONVEYOR FEEDER Hermes [place], [place] [address]Piv: [phone] [place], [place] [address]Fhj: (HP)Tel: [phone]: (HP) [phone] () 03/16/2018 Secondary PARUL S [place]IP Practices Insurance:Medical CRILOWDOB: Repository [facility] [id number] Number: 2 [facility] [id number] Date:0397-31-33Bguy [place], [place] Name:[address] [address]Toy: [phone], [place] [phone] (HP) [id number]: 03/16/2018 Tertiary Samantha OHIP Practices Insurance:[place] CrilowDOB: Repository [facility] Number: [id number] [facility] Date:2009-01-01 - Drive 4189-22-90Wgyk [place], [place] Name:[address] [address]Tpw: [phone], [place] [phone] (HP) [id number]: 03/16/2018 Tertiary Samantha OHIP Practices Insurance:First CrilowDOB: Repository [employer] [id number] [employer]Policy [facility] Number: Effective Drive Date: - [place], [place] 7243-69-06Ueya [address]Rgw: (330) Name:[id number] [place] [phone] (HP) Bl[address] [place] [address]XO: 03/16/2018 Tertiary PARUL S OHIP Practices Insurance:Aetna/mcare CRILOWDOB: Repository [facility] [id number] Number: 2 [facility] [id number] Date:2017-03-03 - [place], [place] 2844-71-14Ygcy [address]Qxs: ([phone]) Name:[phone] (HP) [address]Lssrgrxxc, [place] [address]QN: 02/17/2018 SAMANTHA E Primary PARUL S [place] [id number] STEP Insurance:MEDICARE CRILOWDOB: [place] PART A [facility] [id number] Hospital [address]Tyr: (330) Number: Repository [phone] () [id number] Date:2018-02-17 02/17/2018 Secondary PARUL S [place] Insurance:AETNA SR CRILOWDOB: Community SUPPLEMENT [facility] [id number] Hospital Number: Repository [id number] Date:5269-08-82JXXNR SENIOR SUPPLEMENT [address] [place] [address]LF: 02/17/2018 Tertiary NOT GIVENUNK [place] Insurance:SELF PAY [facility] Number: Effective Repository Date:2018-02-17 12/15/2017 SAMANTHA E Primary PARUL S [place] [id number] Insurance:MEDICARE CRILOWDOB: [facility] PART A [facility] [id number] Number: Repository [address]Zyc: 330 [id number] [phone] () Date:2017-02-26 12/15/2017 Secondary PARUL S [place] Insurance:AETNA SR CRILOWDOB: Community SUPPLEMENT [facility] [id number] Hospital Number: Repository [id number] Date:2842-89-04LXHPA SENIOR SUPPLEMENT [address] [address]SMNKEOBBP, [place] [address]PC: 12/15/2017 Tertiary NOT GIVENUNK [place] Insurance:SELF PAY [facility] Hospital Number: Effective Repository Date:2017-12-15 11/17/2017 SAMANTHA E Primary PARUL S [place] [id number] Insurance:MEDICARE CRILOWDOB: [facility] ROB[address]IVID[address] PART A [facility] [id number], [place] Number: Repository [address]Zuz: 330 [id number] [phone] () Date:2017-11-11 11/17/2017 Secondary PARUL S [place] Insurance:AETNA SR CRILOWDOB: Community SUPPLEMENT [facility] [id number] Hospital Number: Repository [id number] Date:4766-76-88IQWOD SENIOR SUPPLEMENT [address] [address]FVXHCNQFK, [place] [address]PS: 11/17/2017 Tertiary NOT GIVENUNK [place] Insurance:SELF PAY [facility] Number: Effective Repository Date:2017-11-11 11/07/2017 SAMANTHA E Primary Insurance:[facility] PARUL S [place] [id number] PACKAGE PLANPolicy CRILOWDOB: [facility] LORPao RICARDO Number: [id number], [place] [id number] Repository [address]Mpa: (801) Date:2017-10-27 [phone] () 11/07/2017 Secondary PARUL S [place] Insurance:MEDICARE CRILOWDOB: Community PART A [facility] [id number] Hospital Number: Repository [id number] Date:2017-10-27 11/07/2017 Tertiary PARUL S [place] Insurance:AETNA SR CRILOWDOB: Community SUPPLEMENT [facility] [id number] Hospital Number: Repository [id number] Date:0775-99-88EDMCY SENIOR SUPPLEMENT [address] [address]HWVIECMKD, [place] [address]WW: 11/07/2017 Tertiary NOT GIVENUNK [place] Insurance:SELF PAY [facility] Number: Effective Repository Date:2017-11-07 11/06/2017 SAMANTHA E Primary Insurance:[facility] PARUL S [place] [id number] PACKAGE PLANPolicy CRILOWDOB: [address] Number: [id number], [place] [id number] Repository [address]Mth: (771) Date:2017-10-27 [phone] (IP) 11/06/2017 Secondary PARUL S [place] Insurance:MEDICARE CRILOWDOB: Community PART A [facility] [id number] Hospital Number: Repository [id number] Date:2017-10-27 11/06/2017 Tertiary PARUL S [place] Insurance:AETNA SR CRILOWDOB: Community SUPPLEMENT [facility] [id number] Hospital Number: Repository [id number] Date:6284-59-20RRGLG SENIOR SUPPLEMENT [address] [place] [address]UV: 11/06/2017 Tertiary NOT GIVENUNK [place] Insurance:SELF PAY [facility] Number: Effective Repository Date:2017-10-27 09/11/2017 SAMANTHA E Primary PARUL S [place] [id number] Insurance:MEDICARE CRILOWDOB: [address] PART A [facility] [id number], [place] Number: Repository [address]Tqw: 330 [id number] [phone] () Date:2017-02-26 09/11/2017 Secondary PARUL S [place] Insurance:AETNA SR CRILOWDOB: Community SUPPLEMENT [facility] [id number] Hospital Number: Repository [id number] Date:1662-35-01ROMUH SENIOR SUPPLEMENT [address] [place] [address]SZ: 09/11/2017 Tertiary NOT GIVENUNK [place] Insurance:SELF PAY [facility] Number: Effective Repository Date:2017-09-11 08/22/2017 SAMANTHA E Primary PARUL S [place] [id number] Insurance:MEDICARE CRILOWDOB: [facility] CINDI RICARDO PART A [facility] [id number], [place] Number: Repository [id number]: 330 [id number] [phone] (HP) Date:2017-02-09 08/22/2017 Secondary PARUL S [place] Insurance:AETNA SR CRILOWDOB: Community SUPPLEMENT INSPolicy [id number] Hospital Number: Repository [id number] Date:2047-25-53NDEWA SENIOR SUPPLEMENT [address] [place] [address]DW: 08/22/2017 Tertiary NOT GIVENUNK [place] Insurance:SELF PAY [facility] Hospital Number: Effective Repository Date:2017-06-09 08/21/2017 SAMANTHA E Primary PARUL S [place] [id number] Insurance:MEDICARE CRILOWDOB: Community [address] PART A [facility] 2018-15-[facility] [place] Number: Repository [id number]: 330 [id number] [phone] (HP) Date:2017-08-21 08/21/2017 Secondary PARUL S [place] Insurance:AETNA SR CRILOWDOB: Community SUPPLEMENT INSPolicy [id number] Hospital Number: Repository [id number] Date:6151-81-16MWEBB SENIOR SUPPLEMENT [address] [address]VTARVZAGM, [place] [address]QX: 08/21/2017 Tertiary NOT GIVENUNK [place] Insurance:SELF PAY [facility] Hospital Number: Effective Repository Date:2017-08-21 06/12/2017 SAMANTHA E Primary PARUL S [place] [id number] Insurance:MEDICARE CRILOWDOB: Community [address] PART A [facility] [id number] Number: Repository [address]Hgu: 330 [id number] [phone] (HP) Date:2017-02-26 06/12/2017 Secondary PARUL S [place] Insurance:AETNA SR CRILOWDOB: Community SUPPLEMENT INSPolicy [id number] Hospital Number: Repository [id number] Date:3120-30-35CFZLY SENIOR SUPPLEMENT [address]AAIV[address] [place] [address]VP: 06/12/2017 Tertiary NOT GIVENUNK [place] Insurance:SELF PAY [facility] Number: Effective Repository Date:2017-06-12 04/04/2017 SAMANTHA Bragg Primary PARUL Cedeno [place] [id number] Insurance:MEDICARE CRILOWDOB: Community [address] LISA A [facility] [id number], [place] Number: Repository [id number]: [phone]) [id number] [phone] () Date:2017-03-06 04/04/2017 Secondary PARUL S [place] Insurance:AETNA SR CRILOWDOB: Community SUPPLEMENT [facility] [id number] [facility] Number: Repository [id number] Date:[id number] SENIOR SUPPLEMENT [address] [address], [place] [address]ZA: 04/04/2017 Tertiary NOT GIVENUNK [place] Insurance:SELF [facility]Y [facility] Number: Effective Repository Date:2017-03-06
== END ==
PROVIDERS: Family Provider Internal Medicine; PCP Internal Medicine; Referring Provider Internal Medicine; Visit Provider Internal Medicine
DX: M25.561 Pain in right knee (principal)
CPT/HCPCS: 73564

== ENCOUNTER → 2018-08-24 13:37 | Outpatient (CLI) | payer MEDICARE, OTHER, SELFPAY ==
[2018-06-16 11:40] VITALS: BMI 25.4
--- NOTE | 2018-08-24 13:45 | RAD_ITS ---
STUDY: X-RAY - RIGHT ANKLE REASON FOR EXAM: Female, 68 years old. Fall TECHNIQUE: 3 view(s) of the ankle. COMPARISON: None. FINDINGS: There is no evidence of fracture or dislocation. There are no significant degenerative changes. There are no radiodense foreign bodies. RAD/Ankle min 3 Views IMPRESSION: No fracture or dislocation in the right ankle. Electronically Signed: Karthikeyan Bryson, at 17:14 EDT Tel , Service support ,
--- NOTE | 2018-08-24 13:47 | RAD_ITS ---
STUDY: X-RAY - RIGHT FOOT CLINICAL: Female, 68 years old. Pain. Fall. TECHNIQUE: 3 view(s) of the foot. COMPARISON: None. FINDINGS: There is no evidence of fracture or dislocation. There is a plantar calcaneal spur noted. There are mild degenerative changes in the midfoot. There are no radiodense foreign bodies. RAD/Foot min 3 Views IMPRESSION: No fracture or dislocation in the right foot. Mild degenerative change. Plantar calcaneal spur. Electronically Signed: Karthikeyan Bryson, at 16:40 EDT Tel , Service support ,
== END ==
PROVIDERS: Family Provider Internal Medicine; PCP Internal Medicine; Visit Provider Internal Medicine
DX: M79.671 Pain in right foot (principal)
CPT/HCPCS: 73610; 73630

== ENCOUNTER → 2018-11-05 14:22 | Outpatient (CLI) | payer MEDICARE, OTHER, SELFPAY ==
[2018-09-15 11:40] VITALS: BMI 25.7
[2018-11-05 12:44] LABS: Absolute Lymphocyte Count 1.25 X10^3/uL (0.83-4.51); Absolute Neutrophil Count 3.9 X10^3/uL (2.0-7.7); Basophil# 0.04 X10^3/uL; Basophil% 0.7 % (0-1); Eosinophil# 0.05 X10^3/uL; Eosinophils% 0.9 % (0-5); Hematocrit 43.7 % (37-47); Hemoglobin 14.5 g/dL (12.0-15.0); Lymphocyte # 1.25 X10^3/ul (4.0); Lymphocyte % 21.8 % (19-41); Mean Corp Hgb Conc 33.2 g/dL (32-36); Mean Corpuscular Volume 93.4 fL (81-99); Mean Platelet Vol. 9.9 fl (6.2-12.0); Monocyte# 0.44 X10^3/uL; Monocyte% 7.7 % (0-10); NRBC Flagged by Analyzer 0 % (0-5); Neutrophil # 3.93 X10^3/uL (2.7-7.7); Neutrophil % 68.4 % (47-70); Platelet Count 293 K/mm3 (150-450); RBC Distribution Width CV 13.7 % (11.6-14.6); RBC Distribution Width SD 47.3 fl (35.1-43.9); Red Blood Count 4.68 M/mm3 (4.2-5.4); White Blood Count 5.7 K/mm3 (4.4-11.0)
[2018-11-05 12:47] LABS: Erythrocyte Sedimentation Rate 8 mm/hr (0-30)
[2018-11-05 12:56] LABS: ALB/GLOB Ratio 1.1 RATIO (0.9-2.4); AST(SGOT) 15 U/L (15-37); Alanine Aminotransfer ALT/SGPT 23 U/L (13-56); Albumin, Serum 3.8 g/dL (3.2-5.0); Alkaline Phosphatase 66 U/L (45-117); Amylase 61 U/L (25-115); Anion Gap 8 (5-15); BUN 16 mg/dL (7-18); BUN/Creat Ratio 16.4 RATIO (10-20); Calcium,Total 8.3 mg/dL (8.5-10.1); Chloride 107 mmol/L (98-107); Creatinine, Serum 0.98 mg/dL (0.55-1.02); EST Glomerular Filtration Rate 60 mL/min (>60); Est Glom Filt Rate - Afr Amer 73 mL/min (>60); Globulin 3.6 g/dL (2.2-4.2); Glucose 82 mg/dL (74-106); Lipase 165 U/L (73-393); Potassium 4.1 mmol/L (3.5-5.1); Protein, Total 7.4 g/dL (6.4-8.2); Sodium Level 142 mmol/L (136-145)
--- NOTE | 2018-11-05 14:25 | US_ITS ---
STUDY: ABDOMINAL ULTRASOUND - RIGHT UPPER QUADRANT REASON FOR VISIT: Female, 68 years old. Right upper quadrant pain and back pain. TECHNIQUE: Ultrasound evaluation of the right upper quadrant was performed with real-time and static saavedra-scale imaging. TECHNICAL QUALITY: Adequate. COMPARISON: None. FINDINGS: Liver: The liver measures 12.3 cm. There is normal echogenicity of the liver. The bile ducts are within normal limits. There is hepatic color flow. The direction of portal flow is hepatopetal. There is no demonstrated mass lesion. Gallbladder: Normal distended gallbladder. The gallbladder wall measures 2.0 mm. There is a negative sonographic Muniz's sign. There is no pericholecystic fluid. There are no gallstones. Common Bile Duct (C.B.D.): The common bile duct measures 4.8 mm. Pancreas: Normal size of the head, body of the pancreas. The tail portion is obscured due to overlying bowel gas. There is normal echogenicity of the pancreas. There is no demonstrated pancreatic mass or cyst. Right Kidney: Normal size of the right kidney. The right kidney measures 8.5 cm x 4.4 cm x 4.3 cm. Normal renal cortex. The right cortex measures 2.0 cm. There is no demonstrated renal mass or cyst. There is no right hydronephrosis. US/Gallbladder IMPRESSION: Normal right upper quadrant ultrasound examination. Electronically Signed: Justice Dahl, at 15:09 EDT , Service support ,
[2018-11-06 16:08] LABS: Creatine Kinase MB 0 % (0-3); Creatine Kinase MM 100 % (97-100); Creatine Kinase,Total,Serum 73 U/L (24-173); Macro I 0 % (Not Observed); Macro II 0 % (Not Observed)
[2018-11-07 14:12] LABS: Creatine Kinase BB 0 % (0)
== END ==
PROVIDERS: Family Provider Internal Medicine; PCP Internal Medicine; Referring Provider Internal Medicine; Visit Provider Internal Medicine
DX: R07.9 Chest pain, unspecified (principal); R10.10 Upper abdominal pain, unspecified
CPT/HCPCS: 76705; 80053; 82150; 82550; 82552; 83690; 84484; 85025; 85652

== ENCOUNTER → 2018-11-19 06:25 | Outpatient (CLI) | payer MEDICARE, OTHER, SELFPAY ==
[2018-09-15 11:40] VITALS: BMI 25.7
--- NOTE | 2018-11-19 06:34 | MRI_ITS ---
STUDY: MRI BRAIN WITH AND WITHOUT CONTRAST REASON FOR EXAM: Female, 68 years old. Right-sided headache history of breast cancer TECHNIQUE: Standardized multiplanar fat and water weighted pulse sequences were obtained. 12 IV Dotarem was administered for the contrast portion of the examination. COMPARISON: None. FINDINGS: Normal size of the ventricles and extra-axial spaces for the patient's age. Minor periventricular white matter ischemic changes without mass effect or restricted diffusion. Normal bilateral basal ganglia. Normal thalami. There is no extra-axial fluid accumulation. Normal flow voids within the major intracranial circulation suggesting patency by spin echo criteria. Normal venous enhancement. There is no enhancing intra-axial or extra-axial abnormality. Normal sella turcica, pituitary gland, infundibular stalk, optic chiasm and hypothalamus. Normal tectal plate and pineal gland. Normal midbrain, myrna and medulla. Normal cerebellum. Normal basal cisterns. Normal bilateral temporal bones. Normal bilateral internal auditory canals. No demonstrated orbital abnormality, within the constraints of a routine brain study. Bilateral maxillary and ethmoid sinus disease greater on the left. Normal calvarium and skull base. Normal visualized soft tissue structures. Normal visualized upper cervical spine. MRI/Brain W/WO Contrast IMPRESSION: Mild periventricular white matter ischemic changes without evidence for acute infarct. No evidence for metastatic disease. Bilateral maxillary and ethmoid sinus disease greater on the left Electronically Signed: Clayton Gresham MD at 16:25 EDT , Service support ,
== END ==
PROVIDERS: Family Provider Internal Medicine; PCP Internal Medicine; Referring Provider Internal Medicine; Visit Provider Internal Medicine
DX: R51 Headache (principal)
CPT/HCPCS: 70553; A9575

== ENCOUNTER → 2018-11-23 13:53 | Outpatient (CLI) | payer MEDICARE, OTHER, SELFPAY ==
[2018-09-15 11:40] VITALS: BMI 25.7
[2018-11-23 14:04] LABS: Hematocrit 39.9 % (37-47); Mean Corp Hgb Conc 32.6 g/dL (32-36); Mean Corpuscular Hgb 30.7 pg (27.0-32.0); Mean Corpuscular Volume 94.3 fL (81-99); Mean Platelet Vol. 10.6 fl (6.2-12.0); Platelet Count 244 K/mm3 (150-450); RBC Distribution Width CV 13.9 % (11.6-14.6); RBC Distribution Width SD 47.8 fl (35.1-43.9); Red Blood Count 4.23 M/mm3 (4.2-5.4)
[2018-11-23 14:17] LABS: ALB/GLOB Ratio 1.2 RATIO (0.9-2.4); AST(SGOT) 9 U/L (15-37); Alanine Aminotransfer ALT/SGPT 15 U/L (13-56); Albumin, Serum 3.3 g/dL (3.2-5.0); Alkaline Phosphatase 52 U/L (45-117); Amylase 39 U/L (25-115); Anion Gap 6 (5-15); BUN 12 mg/dL (7-18); BUN/Creat Ratio 13.3 RATIO (10-20); Calcium,Total 7.3 mg/dL (8.5-10.1); Chloride 110 mmol/L (98-107); EST Glomerular Filtration Rate 66 mL/min (>60); Est Glom Filt Rate - Afr Amer 80 mL/min (>60); Globulin 2.8 g/dL (2.2-4.2); Glucose 86 mg/dL (74-106); Potassium 4.2 mmol/L (3.5-5.1); Protein, Total 6.1 g/dL (6.4-8.2); Sodium Level 141 mmol/L (136-145)
[2018-11-23 15:56] LABS: Magnesium 2.1 mg/dL (1.6-2.6)
[2018-11-23 16:45] LABS: Vitamin D,25 Hydroxy 38.6 ng/mL (29.95-100.01)
== END ==
PROVIDERS: Family Provider Internal Medicine; PCP Internal Medicine; Referring Provider Internal Medicine; Visit Provider Internal Medicine
DX: R11.10 Vomiting, unspecified (principal); E83.51 Hypocalcemia
CPT/HCPCS: 80053; 82150; 82306; 83735; 83970; 85027

== ENCOUNTER → 2018-11-25 10:28 | Outpatient (CLI) | payer MEDICARE, OTHER, SELFPAY ==
[2018-09-15 11:40] VITALS: BMI 25.7
--- NOTE | 2018-11-25 10:33 | NM_ITS ---
CLINICAL: 68-year-old female with reported history of postprandial emesis and right upper quadrant abdominal pain. RADIONUCLIDE HEPATOBILIARY SCINTIGRAPHY COMPARISON: Abdominal ultrasound report 11/05/2018 FINDINGS: Following the intravenous administration of 5.5 mCi of 99m Tc Mebrofenin, hepatobiliary images reveal: 1. Relatively prompt and homogeneous radiopharmaceutical concentration is noted by a normal sized liver. No parenchymal defects are identified. 2. Gallbladder activity is identified at 15 minutes post radiopharmaceutical administration. 3. Small intestinal tract is observed at 30 minutes following tracer injection. 4. Washout of the radiopharmaceutical by the hepatic parenchyma appears qualitatively normal. Cholecystokinin (0.02 ug/kg) was administered intravenously over a 30-minute period. The post CCK gallbladder ejection fraction calculated at 21 minutes following Cholecystokinin administration was noted to be 52.0 % (normal greater than 35%). During 30 minutes of post CCK imaging, there is no scintigraphic evidence of reflux of the radiotracer into the common hepatic duct or refilling of the gallbladder. MS/Hepatobilliary Img w/Pharm Int IMPRESSION: 1. NORMAL 99m Tc Mebrofenin hepatobiliary imaging examination with Cholecystokinin. A. A gallbladder ejection fraction calculated to be greater than 35% following the administration of Cholecystokinin makes the probability of functional hepatobiliary disease (gallbladder and/or sphincter of Oddi dyskinesia) and/or organic hepatobiliary disease (chronic acalculous cholecystitis and/or cystic duct syndrome) to be low. (Dayana Ventura et al, Journal of Nuclear Medicine 32:1695, 1991). Electronically Signed: Richard Pino DO at 12:36 EDT Tel , Service support ,
== END ==
PROVIDERS: Family Provider Internal Medicine; PCP Internal Medicine; Referring Provider Internal Medicine; Visit Provider Internal Medicine
DX: R11.10 Vomiting, unspecified (principal)
CPT/HCPCS: 78227; A9537; J2805

== ENCOUNTER → 2018-12-16 12:36 | Outpatient (CLI) | payer MEDICARE, OTHER, SELFPAY ==
[2018-09-15 11:40] VITALS: BMI 25.7
--- NOTE | 2018-12-16 12:38 | BI_ITS ---
MAMMOGRAPHY - UNILATERAL SCREENING: RIGHT BREAST REASON FOR EXAM: Female, 68 years old. Routine annual screening examination (unilateral). PERTINENT HISTORY: Personal history of breast cancer. Prior right mastectomy. TECHNIQUE: Digital unilateral breast rhoda (3D mammographic acquisition) in the CC and MLO projections. 2-D mediolateral oblique (MLO) and craniocaudad (CC) views of both breasts were obtained. CAD: Full Field Digital Mammography with Computer Added Detection was performed. COMPARISON: Comparison is made with prior study of November 17, 2017 and December 26, 2016. FINDINGS: Breast Composition: The breasts are heterogeneously dense, which may obscure small masses. There are no dominant masses or suspicious calcifications. No other significant abnormalities are identified. There has been no significant change since the prior study. BI/SCREEN MAMM (CAD) W/RHODA UNI R IMPRESSION: Stable unilateral screening mammogram. Yearly follow-up mammogram recommended. (A) ASSESSMENT CATEGORY: BIRADS Category 1: Negative. A letter regarding these results will be sent to the patient by the facility within 30 days. Approximately 10% of breast cancers are not detected by mammography. A normal mammogram should not delay biopsy of a clinically suspicious abnormality. [id number] Electronically Signed: Justice Dahl, at 14:36 EDT , Service support ,
== END ==
PROVIDERS: Family Provider Internal Medicine; PCP Internal Medicine; Referring Provider Internal Medicine Hematology & Oncology; Visit Provider Internal Medicine Hematology & Oncology
DX: Z12.31 Encounter for screening mammogram for malignant neoplasm of breast (principal); Z85.3 Personal history of malignant neoplasm of breast; Z90.11 Acquired absence of right breast and nipple
CPT/HCPCS: 77061; 77063; 77067; G0279

== ENCOUNTER → 2019-03-23 08:45 | Outpatient (CLI) | payer MEDICARE, OTHER, SELFPAY ==
[2018-12-24 10:56] VITALS: BMI 24.9
--- NOTE | 2019-03-23 08:50 | BD_ITS ---
STUDY: DUAL ENERGY X-RAY ABSORPTIOMETRY / DXA REASON FOR EXAM: Female, 68 years old. 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 COMPARISON: Comparison is made with prior study dated March 18, 2017. FINDINGS: Lumbar Spine (L1-L4): g/cm2 (0.816) / T-score (-3.0) / Z-score (-1.4) Findings are suggestive of osteoporosis with a high fracture risk. Left Femur Total: g/cm2 (0.771) / T-score (-1.9) / Z-score (-0.5) Left Femoral Neck: g/cm2 (0.793) / T-score (-1.8) / Z-score (-0.2) Right Femur Total: g/cm2 (0.812) / T-score (-1.6) / Z-score (by 0.2) Right Femoral Neck: g/cm2 (0.814) / T-score (-1.6) / Z-score (0.0) The T-Scores on the most recent prior examination were: Lumbar Spine (L1-L4): There has been worsening of bone density since the previous examination. Left Femur Total: which represents an improvement of 3.2%. Right Femur Total: which represents an improvement of 6%. BD/Dexa Bone Density Study IMPRESSION: The patient is considered osteoporotic as outlined below according to World Cal Organization (WHO) criteria with a high fracture risk. There has been improvement of bone density since the previous examination. Reference Information: The T-score is the number of standard deviations above or below the standard which is normal for young adults at their peak bone mineral density. The World Health Organization (WHO) interprets the T-scores as follows: Above -1 Normal bone density Between -1 and -2.5 Osteopenia Equal to / or below -2.5 Osteoporosis As a practical clinical guideline, osteopenia may be graded as follows: Mild -1 through -1.5 Moderate -1.6 through -2.0 Severe -2.1 through -2.4 The Z-score is the number of standard deviations above or below age-matched controls. A Z-score of less than -1.5 would be considered abnormal. References: 1. NIH Osteoporosis and Related Bone Diseases http://www.osteo.org 2. International Society for Clinical Densitometry http://www.iscd.org 3. National Osteoporosis Foundation http://www.nof.org Electronically Signed: Justice Dahl, at 15:35 EST , Service support ,
== END ==
PROVIDERS: Family Provider Internal Medicine; PCP Internal Medicine; Referring Provider Internal Medicine; Visit Provider Internal Medicine
DX: M81.0 Age-related osteoporosis without current pathological fracture (principal)
CPT/HCPCS: 77080

== ENCOUNTER → 2019-09-02 | Outpatient (CLI) | payer MEDICARE, OTHER, SELFPAY ==
[2019-09-02 10:01] VITALS: BMI 25.9
[2019-09-02 12:04] LABS: Anion Gap 4 (5-15); BUN 11 mg/dL (7-18); BUN/Creat Ratio 13.4 RATIO (10-20); Calcium,Total 8.1 mg/dL (8.5-10.1); Chloride 111 mmol/L (98-107); Creatinine, Serum 0.82 mg/dL (0.55-1.02); EST Glomerular Filtration Rate 74 mL/min (>60); Est Glom Filt Rate - Afr Amer 89 mL/min (>60); Glucose 97 mg/dL (74-106); Sodium Level 141 mmol/L (136-145)
== END | disposition home or self-care (01) ==
LOC: LAB 10:37
PROVIDERS: PCP Internal Medicine; Referring Provider Internal Medicine Cardiovascular Disease; Visit Provider Internal Medicine Cardiovascular Disease
DX: I10 Essential (primary) hypertension (principal); R06.00 Dyspnea, unspecified
CPT/HCPCS: 36415; 80048; 83880

== ENCOUNTER → 2019-09-20 | Outpatient (CLI) | payer MEDICARE, OTHER, SELFPAY ==
[2019-09-02 10:01] VITALS: BMI 25.9
--- NOTE | 2019-09-20 09:53 | ECHODONC_ITS ---
Reason For Study: DYSPNEA/SOB Procedure This was a 2D Doppler, Color Flow transthoracic echocardiogram. Myocardial strain analysis was performed in this exam to aid in the assessment of cardiac function. The study was technically difficult. Exam performed in department. Left Ventricle Normal LV size. Left ventricular systolic function is lower limits of normal. The estimated ejection fraction is 53 %. Stage 1 diastolic dysfunction. No regional wall motion abnormalities noted. Right Ventricle Normal RV size. Normal systolic function. Atria Normal left atrium. Normal right atrium. Normal atrial septum. Mitral Valve Normal mitral valve. Tricuspid Valve Normal tricuspid valve. Mild tricuspid valve insufficiency. Aortic Valve Normal aortic valve. Trisinus/trileaflet aortic valve. Pulmonic Valve Normal pulmonic valve. Great Vessels Normal aortic root. The pulmonary artery is normal size. Normal inferior vena cava. Pericardium/Pleural No pericardial effusion. MMode/2D Measurements & Calculations LVIDd: 4.0 cm IVSd: 0.98 cm Ao root diam: 3.4 cm LVIDs: 2.8 cm LVPWd: 1.0 cm RVDd: 3.1 cm FS: 31.4 % LAV(MOD-bp): 40.0 ml LA A4 area: 12.7 cm2 LA dimension(2D): 2.9 cm LAV(MOD-bp) Indexed: 24.2 ml/m2 LAV(MOD-sp2): 49.3 ml LAV(MOD-sp4): 31.7 ml RA A4 area: 12.0 cm2 Time Measurements MV dec time: 0.25 sec Doppler Measurements & Calculations MV E max guido: 54.8 cm/sec Lat Peak E' Guido: 4.3 cm/sec Med Peak E' Giudo: 3.1 cm/sec MV A max guido: 82.0 cm/sec E/E' lat: 12.9 E/E' med: 17.7 MV E/A: 0.67 Ao V2 max: 121.5 cm/sec LV V1 max: 97.8 cm/sec PA V2 max: 96.4 cm/sec Ao max P.9 mmHg LV V1 max P.8 mmHg TR max guido: 226.9 cm/sec TR max P.6 mmHg Interpretation Summary Normal LV size. Left ventricular systolic function is lower limits of normal. The estimated ejection fraction is 53 %. Stage 1 diastolic dysfunction. The global longitudinal strain is moderately abnormal. The global longitudinal strain = -13.2% (abnormal). Ordering Physician: Johann Drake Referring Physician: Mónica Petty Performed By: Hemalatha Appiah, SHAJI, RVT
== END | disposition home or self-care (01) ==
LOC: CVS 09:53
PROVIDERS: PCP Internal Medicine; Referring Provider Internal Medicine Cardiovascular Disease; Visit Provider Internal Medicine Cardiovascular Disease
DX: R06.00 Dyspnea, unspecified (principal)
CPT/HCPCS: 93306; 93356

== ENCOUNTER → 2019-09-21 | Outpatient (CLI) | payer MEDICARE, OTHER, SELFPAY ==
[2019-09-02 10:01] VITALS: BMI 25.9
--- NOTE | 2019-09-21 11:28 | RAD_ITS ---
STUDY: X-RAY CHEST REASON FOR EXAM: Female, 69 years old. Dyspnea on exertion TECHNIQUE: PA and lateral views of the chest. COMPARISON: 01/26/2013 FINDINGS: The lungs are clear and expanded. There is no demonstrated pleural abnormality. Normal size heart. Normal mediastinum and vazquez. Normal visualized pulmonary arteries. Normal visualized aortic arch and descending thoracic aorta. Normal visualized thoracic spine. Normal visualized ribs, clavicles, and shoulders. There is no demonstrated abnormality of the visualized soft tissue structures of the upper abdomen. RAD/Chest PA and Lateral IMPRESSION: No acute pulmonary process Electronically Signed: Raphael Roe MD at 11:49 EDT , Service support ,
[2019-09-21 12:56] LABS: D-Dimer Quantitative (DVT/PE) 0.59 FEU/ug/m (0.27-0.49)
[2019-09-21 13:03] LABS: Anion Gap 3 (5-15); BUN 17 mg/dL (7-18); BUN/Creat Ratio 18.3 RATIO (10-20); Calcium,Total 8.6 mg/dL (8.5-10.1); Chloride 108 mmol/L (98-107); Creatinine, Serum 0.93 mg/dL (0.55-1.02); EST Glomerular Filtration Rate 64 mL/min (>60); Est Glom Filt Rate - Afr Amer 77 mL/min (>60); Glucose 100 mg/dL (74-106); Potassium 4.3 mmol/L (3.5-5.1); Sodium Level 139 mmol/L (136-145)
--- NOTE | 2019-09-21 13:30 | CT_ITS ---
STUDY: CTA CHEST REASON FOR EXAM: Female, 69 years old. ELEVATED D-DIMER, SOB X MONTHS, HX BREAST CANCER W/ RT MASTECTOMY RADIATION DOSAGE (If Supplied By Facility): CTDIvol = ( 8.7 ) mGy, DLP = ( 285.51 ) mGycm TECHNIQUE: The examination was performed with the intravenous administration of IV ISOVUE 370 100ML. Post-processing of the angiographic images was performed, with multiplanar reformation and 3D reconstruction. Individualized dose optimization techniques were used for this CT. COMPARISON: Previous plain films FINDINGS: Soft tissues show evidence of previous right mastectomy Normal enhancement of the main pulmonary artery and right and left pulmonary arteries. Normal enhancement of the bilateral peripheral pulmonary arteries. There is no demonstrated pulmonary embolism. Normal thoracic aorta and visualized great vessels. There is no demonstrated aortic dissection. Normal heart and pericardium. Normal mediastinum. Normal hilar regions. Normal visualized trachea and bronchi. The lungs are well expanded. Normal pulmonary parenchyma. Normal pleura. Normal chest wall structures. There are degenerative changes of thoracic spine. Normal visualized upper abdomen. CT/CTA Chest W/WO Contrast IMPRESSION: No demonstrated PE, or thoracic aortic aneurysm or dissection No superimposed acute pulmonary process Degenerative bony changes Electronically Signed: Raphael Roe MD at 14:02 EDT , Service support ,
== END | disposition home or self-care (01) ==
PROVIDERS: PCP Internal Medicine; Referring Provider Internal Medicine; Visit Provider Internal Medicine
DX: R06.09 Other forms of dyspnea (principal); R79.89 Other specified abnormal findings of blood chemistry
CPT/HCPCS: 71046; 71275; 80048; 85379; Q9967

== ENCOUNTER → 2019-12-20 | Outpatient (CLI) | payer MEDICARE, OTHER, SELFPAY ==
[2019-08-12 11:01] VITALS: BMI 26.1
--- NOTE | 2019-12-20 09:56 | BI_ITS ---
MAMMOGRAPHY - UNILATERAL SCREENING: LEFT BREAST REASON FOR EXAM: Female, 69 years old. Routine annual screening examination (unilateral). PERTINENT HISTORY: Personal history of breast cancer. Prior right mastectomy. TECHNIQUE: Digital unilateral breast rhoda (3D mammographic acquisition) in the CC and MLO projections. 2-D mediolateral oblique (MLO) and craniocaudad (CC) views of both breasts were obtained. CAD: Full Field Digital Mammography with Computer Added Detection was performed. COMPARISON: Comparison is made with prior examination dated 12/16/2018 and 11/17/2017. FINDINGS: Breast Composition: The breasts are heterogeneously dense, which may obscure small masses. There are no dominant masses or suspicious calcifications. No other significant abnormalities are identified. There has been no significant change since the prior study. BI/SCREEN MAMM (CAD) W/RHODA UNI L IMPRESSION: Stable unilateral screening mammogram. Yearly follow-up mammogram recommended. (A) ASSESSMENT CATEGORY: BIRADS Category 1: Negative. A letter regarding these results will be sent to the patient by the facility within 30 days. Approximately 10% of breast cancers are not detected by mammography. A normal mammogram should not delay biopsy of a clinically suspicious abnormality. [id number] Electronically Signed: Justice Dahl, at 11:30 EDT , Service support ,
== END | disposition home or self-care (01) ==
PROVIDERS: PCP Internal Medicine; Referring Provider Internal Medicine Hematology & Oncology; Visit Provider Internal Medicine Hematology & Oncology
DX: Z12.31 Encounter for screening mammogram for malignant neoplasm of breast (principal); C50.911 Malignant neoplasm of unspecified site of right female breast
CPT/HCPCS: 77063; 77067

== ENCOUNTER 2020-04-13 08:23 | Day surgery (SDC) | payer MEDICARE, OTHER, SELFPAY ==
[2020-03-24 14:26] VITALS: BMI 25.4
[2020-04-07 11:09] LABS: Hemoglobin 13.1 g/dL (12.0-15.0); Mean Corpuscular Hgb 29.9 pg (27.0-32.0); Mean Corpuscular Volume 93.6 fL (81-99); Mean Platelet Vol. 9.6 fl (6.2-12.0); Platelet Count 271 K/mm3 (150-450); RBC Distribution Width SD 48.4 fl (35.1-43.9); Red Blood Count 4.38 M/mm3 (4.2-5.4); White Blood Count 5.4 K/mm3 (4.4-11.0)
[2020-04-07 11:19] LABS: Partial Thromboplast Time 26.3 Seconds (24.1-36.2); Prothrombin Time (Protime)PT. 12.4 SECONDS (11.7-14.9)
[2020-04-07 11:38] LABS: AST(SGOT) 14 U/L (15-37); Alanine Aminotransfer ALT/SGPT 9 U/L (13-56); Albumin, Serum 3.6 g/dL (3.2-5.0); Alkaline Phosphatase 58 U/L (45-117); Anion Gap 6 (5-15); BUN 20 mg/dL (7-18); BUN/Creat Ratio 17.9 RATIO (10-20); Bilirubin, Direct 0.12 mg/dL (0.00-0.30); Calcium,Total 8.8 mg/dL (8.5-10.1); Chloride 106 mmol/L (98-107); Creatinine, Serum 1.12 mg/dL (0.55-1.02); EST Glomerular Filtration Rate 51 mL/min (>60); Est Glom Filt Rate - Afr Amer 62 mL/min (>60); Globulin 3.5 g/dL (2.2-4.2); Glucose 67 mg/dL (74-106); Potassium 3.6 mmol/L (3.5-5.1); Protein, Total 7.1 g/dL (6.4-8.2); Sodium Level 141 mmol/L (136-145)
[2020-04-13] VITALS (7 sets, daily range): BP systolic 105–157; BP diastolic 63–80; PULSE 48–59; RESP 16–18; TEMP 36.1–37; O2SAT 93–99; BMI 25.2
--- NOTE | 2020-04-13 06:54 | HP_ITS ---
Intake Vital Signs 03/24/20 Height 5 ft 2 in 03/24/20 Weight: 139 lb 03/24/20 BMI 25.4 03/24/20 BP 149/83 H 03/24/20 Blood Pressure Location Rt brachial 03/24/20 Position Sitting 03/24/20 Respiration 18 03/24/20 Pulse 64 03/24/20 Pulse Source Monitor 03/24/20 Temp 97.4 F L 03/24/20 Temp Source Temporal 03/24/20 Pulse Oximetry (%) 98 03/24/20 Oxygen Delivery Method room air Intake Visit Reasons: R Inguinal Hernia Chief Complaint: possible right inguinal hernia Pot Holder Binder Required: No Is patient in pain?: No Allergies sulfamethoxazole [From Bactrim] Allergy (Severe, Verified 03/24/20 14:29) Swelling trimethoprim [From Bactrim] Allergy (Severe, Verified 03/24/20 14:29) Swelling Medications Cholecalciferol (Vitamin D3) [Vitamin D3] 5,000 unit PO QHS 02/10/17 [History Confirmed 03/24/20] Fluticasone/Salmeterol [Advair 250-50 Diskus] 1 ea IH BID 02/10/17 [History Confirmed 03/24/20] Breast Prosthesis #1 ea 03/04/17 [Rx Confirmed 03/24/20] Mastectomy Bra #4 ea 03/05/17 [Rx Confirmed 03/24/20] lisinopril 40 mg tablet 40 mg PO QDAY #90 tab 08/25/18 [Rx Confirmed 03/24/20] calcium citrate 315 mg-vitamin D3 5 mcg (200 unit) tablet 1 tab PO DAILY tab 08/27/18 [History Confirmed 03/24/20] carbidopa 25 mg-levodopa 100 mg tablet 1 tab PO Q6H 09/02/19 [History Confirmed 03/24/20] denosumab 60 mg/mL subcutaneous syringe 60 mg SC [id number] 09/02/19 [History Confirmed 03/24/20] furosemide 20 mg tablet 20 mg PO DAILY #90 tab 10/25/19 [Rx Confirmed 03/24/20] Anastrozole [Arimidex] 1 mg PO DAILY 90 Days #90 tab 11/18/19 [Rx Confirmed 03/24/20] red yeast rice 600 mg capsule 1,200 mg PO BID cap 03/24/20 [History Confirmed 03/24/20] PFSH Medical History Essential (primary) hypertension (Chronic) HLD (hyperlipidemia) (Chronic) Use of aromatase inhibitors (Chronic) Primary cancer of right female breast (Chronic) Estrogen receptor positive status [ER+] (Chronic) 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) Osteopenia (Chronic) Asthma (Chronic) GERD (gastroesophageal reflux disease) (Chronic) INVASIVE LOBULAR CARCINOMA RIGHT BREAST (Chronic) Parkinson disease (Chronic) Ptosis of breast (Chronic) Disproportion of reconstructed breast (Resolved) Sinus bradycardia (Resolved) Nonrheumatic mitral (valve) insufficiency (Inactive) Surgical History BREAST BIOPSY X2 IN 1997 (Chronic) History of appendectomy (Chronic) S/P right mastectomy (Chronic) THERMABLATION (Chronic) TUBAL LIGATION (Chronic) History of left heart catheterization (Resolved 01/26/13) Family History Father , AGE 60 CAD (coronary artery disease) Myocardial infarction Mother , AGE 70 Myocardial infarction CAD (coronary artery disease) Diabetes Sister CAD (coronary artery disease) Social History (Updated 03/24/20 @ 16:[address] 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 The patient reports that she has had this hernia for approximately 8 years. She says that she has pain and bulging which improves with lying down. She says that the pain does not radiate. There is no nausea or vomiting. She has no fevers or chills. She says that usually the hernia does not get stuck outward and does reduce easily. ROS General General: Yes breast cancer; no weight change, appetite, fatigue, colon cancer or weakness HEENT HEENT: No difficulty swallowing, eye injury, eye surgery, swollen glands or hoarseness Endo Endocrine: No thyroid disease, diabetes mellitus, thyroid cancer, Hair loss, heat intolerance or cold intolerance Skin Skin: No rash or changing moles Breast Breast: No left breast lump, right breast lump, nipple discharge, breast pain, abnormal mammogram, abnormal US or breast enlargement Musc Musculoskeletal: No back problems, arthritis, rheumatoid arthritis, gout or joint pain Cardio Cardiovascular: Yes high blood pressure; no murmur, pacemaker, heart disease, atrial fibrillation, heart attack, heart stent, palpitations, shortness of breat with exertion or chest pain Psych Psychiatric: No depression, anxiety or hearing voices Resp Respiratory: No shortness of breath, No sleep apnea, No cough, No COPD, Yes asthma, No emphysema, No wheezing Gastro Gastrointestinal: No abdominal pain, No nausea or vomiting, No diarrhea, No constipation, No blood in stool, No acid reflux, No hemorrhoids, No ulcers, No gallbladder problem, No black,tarry stools Blaine Hematologic: No blood thinners, No blood disorders, No bleeding, No anemia, No blood clots Neuro Neurologic: No system reviewed and no additional complaints, except as docu, No as per HPI, No abnormal walking, No abnormal hearing, No abnormal movements, No abnormal speech, No behavioral changes, No burning sensations, No confusion, No seizure-like activity, No unsteadiness, No dizziness, No localized weakness, No frequent falls, No headache(s), No lack of coordination, No loss of vision, No memory loss, No numbness, No other visual disturbances, No radiating pain, No restless legs, No sensory deficit, No fainting, No tingling, No tremor(s), No weakness, No other Exam Const General: cooperative Orientation: alert, oriented x3 HENMT Head: normal to inspection Ears: hearing grossly normal bilaterally Eyes General: appearance normal, both eyes and all related structures Visual Rodriguez: normal visual rodriguez by confrontation Neck Neck: normal visual inspection Chest Chest palpation & inspection: normal inspection of the chest Breast Palpation: No nipple discharge Resp Effort & Inspection: normal respiratory effort Auscultation: clear to auscultation bilaterally Cardio Rate: regular rate Rhythm: regular rhythm Heart Sounds: no murmurs GI Inspection: non-distended Palpation: soft, hernia indirect inguinal on the right, nontender Musc Cervical Spine: normal cervical lordosis, cervical ROM normal Skin General: no rashes or lesions noted Neuro General: alert, oriented x3 Cranial Nerves: CN's II-XI intact bilaterally Cognition: normal cognition Extrem General: normal to inspection, full ROM Psych Appearance: grossly normal Affect: normal affect Assessment & Plan Problems 1. Right inguinal hernia K40.90 Plan The patient has a right inguinal hernia which was reduced in the office. The patient notes that intermittently she does have left groin pain. I discussed open versus laparoscopic hernia repair with her. I discussed robotic assisted laparoscopic right inguinal hernia repair with mesh. The patient has had a history of open appendectomy in the past. I discussed that if scar tissue is in the way or precluding laparoscopic repair I would to convert to a right inguinal hernia repair in an open fashion. The patient also like the contralateral side repaired if there is a hernia present on the left. I discussed laparoscopic inguinal hernia repair with mesh in detail with the patient. I discussed the risks including but not limited to bleeding, infection, injury to underlying bowel, hernia recurrence, chronic groin pain, injury to bladder or blood vessels in the groin. Adilson Crawford MD Pager: [facility] [address] [place] [address], [address] [place] [address] Office: Coding Level of Care Code Off vis,est,level 4 Diagnoses Right inguinal hernia K40.90 Time Spent (min) 45 I have seen and reexamined the patient. no changes since last exam
[2020-04-13] MEDS: Lactated Ringers 1,000 ML 100 ML IV (09:09)
[2020-04-13] MEDS: Cefazolin 2 GM in 0.9% Normal Saline 100 ML IV (10:03)
[2020-04-13] MEDS: Bupivacaine Mpf 0.5% 30 ML VIAL (10:40)
--- NOTE | 2020-04-13 11:06 | PCM.OPRPT ---
Problem List (1) Right inguinal hernia Status: Acute Report of Operation Date of Procedure: 04/13/20 Pre-Operative Diagnosis: Right inguinal hernia Post-Operative Diagnosis: Same Surgery/Procedure Performed:: Robotic assisted laparoscopic right inguinal hernia repair with mesh Description of Procedure: Patient was brought back to the operating room and general anesthesia was induced. The abdomen was prepped and draped in the usual sterile fashion. An incision was made superior to the umbilicus and the fascia was grasped and elevated and Veress needle was placed into the abdomen a drop test was performed. The abdomen was insufflated to 15 mmHg. The Veress needle was removed and the camera port was placed into the abdomen. The camera was placed into the abdomen and it was inspected and there were no injuries from entry. The patient was placed in Trendelenburg position and the inguinal regions were inspected. The patient had a right inguinal hernia and no hernia on the left. A right lower quadrant port was placed under direct visualization as well as a left lower quadrant port. The robot was docked. Using cautery scissors an incision was made in the peritoneum in the right lower quadrant. Dissection was carried inferiorly until the hernia was encountered. The hernia sac was reduced and the adhesions were taken down. The patient had a small femoral hernia as well. The peritoneal dissection was carried inferiorly and then a piece of ProGrip mesh was unfolded over the inguinal region. The peritoneum was reapproximated using a running 3-0 Vloc suture incorporating the hernia sac. The peritoneum completely covered the hernia sac at the end of the procedure. The robot was undocked and the abdomen was allowed to desufflate. The ports were removed and the incisions were injected with local anesthesia and closed with interrupted 4-0 Monocryl sutures as well as Steri-Strips and bandages. The patient was then awoken and taken to PACU in stable condition tolerated the procedure well. Grafts/Implants Used: ProGrip mesh - Admit VTE Documentation VTE Mechan Device Prophylaxis: SCD's
--- NOTE | 2020-04-13 11:25 | PCM.DC.HER ---
Discharge Diet: Light diet - advance as tolerated Discharge Activity: Return to Normal Activity, May Not Drive - for 2-3 days or while taking narcotic pain meds., May Shower - with the bandage in place 1-2 days after surgery. Lifting Restrictions: 20 pounds for 4 weeks. Additional Activity Instructions:: Climbing stairs is fine, walking is encouraged. Sitting in bed may be uncomfortable. Sitting up using your lateral muscles (sitting up sideways) is usually more comfortable. Do not drive, work heavy equipment of sign legal documents for 24 hours. Pain medications may cause nausea, you should typically eat light foods as you take your pain medications. Pain medications may also cause constipation. If you have difficulty with this, discuss with your doctor. Call your doctor if your incision/area has: Continuous Slow Oozing, Sudden Increased Bleeding, Increased Pain/ Swelling, Increased Redness, Foul Smelling Discharge Call your doctor if you observe: Fever of 101 or Higher Suture Line Care: Avoid Pulling/Pushing, Avoid Pinching/Bending Change Dressing in (Days):: 3 - Leave steri-strips for 1 week. May protect with a guaze bandaid. Cleanse incision/area with: Keep Dressing Clean & Dry Allergies/Adverse Reactions: Allergies sulfamethoxazole [From Bactrim] Allergy (Severe, Verified 04/13/20 08:50) Swelling hives swelling in throat trimethoprim [From Bactrim] Allergy (Severe, Verified 04/13/20 08:50) Swelling rash & swelling in throat Medications to take at Discharge Cholecalciferol (Vitamin D3) [Vitamin D3] 5,000 unit PO QHS 02/10/17 Fluticasone/Salmeterol [Advair 250-50 Diskus] 1 ea IH BID 02/10/17 Breast Prosthesis #1 ea 03/04/17 lisinopril 40 mg tablet 40 mg PO QDAY #90 tab 08/25/18 calcium citrate 315 mg-vitamin D3 5 mcg (200 unit) tablet 1 tab PO DAILY tab 08/27/18 carbidopa 25 mg-levodopa 100 mg tablet 1 tab PO Q6H 09/02/19 denosumab 60 mg/mL subcutaneous syringe 60 mg SC [id number] 09/02/19 furosemide 20 mg tablet 20 mg PO DAILY #90 tab 10/25/19 Anastrozole [Arimidex] 1 mg PO DAILY 04/06/20 Mastectomy Bra 1 applic NOTE DAILY 04/06/20 Oxycodone HCl/Acetaminophen [Percocet 5-325 mg Tablet] 1 tab PO Q6H PRN PRN 3 Days #10 tablet 04/13/20 The following prescriptions were given: Oxycodone HCl/Acetaminophen [Percocet 5-325 mg Tablet] 1 tab PO Q6H PRN PRN 3 Days #10 tablet PRN Reason: Pain Score 4-10/10 Transmission Status: Sent to [facility] Orders to be completed after discharge: 12 Lead EKG [[facility]] Time Frame: 04/07/20, Facility: [facility], Location: Cardiovascular Services Primary Care Physician: Mónica Petty MD [Primary Care Provider] - Test Results: Test results from this visit will be discussed in further detail at your follow-up appointment, if applicable. Please Follow Up With: Adilson Crawford MD When: Please call to schedule 2 week follow up appointment. [phone]
[2020-04-13] MEDS: Acetaminophen 325 MG Tablet PO (12:15)
[2020-04-13] MEDS: oxyCODONE 5 MG Tablet PO (12:15)
== END 2020-04-13 13:15 | disposition home or self-care (01) ==
LOC: SDC 08:23 → AC 08:24
PROVIDERS: Anesthesiology; PCP Internal Medicine; Referring Provider Surgery; Visit Provider Surgery
PROC: (CPT 49650; principal; 2020-04-13 09:40)
DX: K40.90 Unilateral inguinal hernia, without obstruction or gangrene, not specified as recurrent (principal); I10 Essential (primary) hypertension; E78.5 Hyperlipidemia, unspecified; J45.909 Unspecified asthma, uncomplicated; I34.1 Nonrheumatic mitral (valve) prolapse; K21.9 Gastro-esophageal reflux disease without esophagitis; G20 Parkinson's disease; Z20.822 Contact with and (suspected) exposure to COVID-19; Z79.899 Other long term (current) drug therapy
CPT/HCPCS: 49650; 36415; 80048; 80076; 85027; 85610; 85730; 87426; C9803; J7120; J2405

== ENCOUNTER → 2020-05-08 14:16 | Outpatient (CLI) | payer MEDICARE, OTHER, SELFPAY ==
[2020-04-13 08:54] VITALS: BMI 25.2
--- NOTE | 2020-05-08 14:17 | CT_ITS ---
ACR Level 3 findings have been noted. An addendum which confirms receipt of the report will follow. HISTORY: Pain. Technique: Contiguous helical images were obtained from the adrenal glands through the perineum. 2-D reformats. Comparison study is a CT scan of the chest from September 21, 2019. The study images to below the adrenal glands. PET/CT is available for February 03, 2017. Oral contrast was administered. Findings: Scarring in the right kidney. Parapelvic cysts in the left kidney. Already at the first contrast is being excreted into nondilated systems. Already traversed past the urinary bladder is somewhat opacified with excreted endovascular contrast. The gallbladder remains. Stomach is distended with ingested contrast. The visualized portions of liver are normal. The adrenal glands are incompletely imaged. Result portions of the pancreas is normal. Contrast is present within the lumen of the stomach. There is no significant contrast within the duodenum. There is some opacification of the lumen of jejunum and more of the ileum. The terminal ileum and cecum are opacified. The ascending colon is opacified. Transverse colon is opacified. Subcontracts barely reaches the splenic flexure. Stool is present throughout the colon. Stool is prominent throughout the sigmoid colon. Diverticulosis. A left ovarian cyst is present. This measures 3.5 cm. This was smaller on the study of February 03, 2017. PET lobe was not imaged in September 2019 CTA chest. The uterus is normal in appearance. The right ovary is not enlarged. Within the right inguinal region there is a hernia. The tissue within the hernia is indurated. Within the right inguinal hernia there is a rim-enhancing area of indurated tissue that measures 2 cm. This is new since 2017. Bowel gas pattern is normal. CT/Pelvis WITH IV Contrast IMPRESSION: 2 cm right inguinal rim-enhancing fluid collection with surrounding indurated fat. This may just be ascites within the right inguinal hernia, but in the setting of induration and pain could represent a small right inguinal hernia abscess. Diverticulosis. Increase in size to left ovarian cyst now measuring 3.5 cm. As this was present in 2017, but has significantly increased in size, the possibility of neoplasia is increased, but the probability of a benign cyst remains the most likely etiology. A pelvic ultrasound could be performed to further characterize the nature of this lesion. Individualized dose optimization techniques were used for this CT. at 0646 Reported and signed by: Bonilla Bceker MD Electronically Signed: Bonilla Becker MD at 6:45 EST Tel , Service support ,
[2020-05-08 14:31] LABS: CREATININE FINGERSTICK 1.1 mg/dL (0.55-1.02)
== END ==
PROVIDERS: PCP Internal Medicine; Referring Provider Surgery; Visit Provider Surgery
DX: R10.31 Right lower quadrant pain (principal); Z90.11 Acquired absence of right breast and nipple
CPT/HCPCS: 72193; Q9967

== ENCOUNTER → 2020-05-11 14:47 | Outpatient (CLI) | payer MEDICARE, OTHER, SELFPAY ==
--- NOTE | 2020-05-11 14:49 | US_ITS ---
STUDY: ULTRASOUND OF THE FEMALE PELVIS - COMPLETE REASON FOR EXAM: Female, 69 [address] LMP: 18 years ago postmenopausal. TECHNIQUE: Transabdominal TECHNICAL QUALITY: Adequate. COMPARISON: None. FINDINGS: The uterus is retroverted and is tilted to the left side of the pelvis. The uterus measures 5.1 x 4.2 x 2.7 cm. Normal uterine cervix. The endometrium measures 3.0 mm in thickness, and is hyperechoic. There is no demonstrated endometrial mass. There is no demonstrated myometrial mass. I.U.D. - The patient does not have an I.U.D. The right ovary is visualized. The right ovary measures 2.3 x 1.8 x 1.0 cm. There is no right ovarian cyst or ovarian mass. There is no visualized right adnexal mass or complex lesion. There is normal arterial and normal venous vascularity. The left ovary is visualized. The left ovary measures 4.4 x 3.8 x 3.6 cm. At the level of the left ovary there is a round anechoic structure consistent with a simple cyst and measuring 3.4 x 3.8 x 3.2 cm. There is no visualized left adnexal mass or complex lesion. There is normal arterial and normal venous vascularity. There is no fluid in the cul-de-sac. The volume of the bladder was 360 ml. US/Pelvic (Non ) IMPRESSION: Left ovarian cyst measuring 3.8 cm in maximum the patient otherwise normal female pelvis ultrasound for age. Electronically Signed: Denisha Perez MD at 0:38 EST , Service support ,
== END ==
PROVIDERS: PCP Internal Medicine; Referring Provider Internal Medicine; Visit Provider Internal Medicine
DX: R93.5 Abnormal findings on diagnostic imaging of other abdominal regions, including retroperitoneum (principal)
CPT/HCPCS: 76856

== ENCOUNTER 2020-07-11 10:00 | Outpatient (RCR) | payer MEDICARE, OTHER, SELFPAY ==
--- NOTE | 2020-06-20 13:23 | HP.PTEVAL ---
Patient's Visit Information PARUL HUNTLEY is a 70 year old F referred to Physical Therapy by Dr. Mónica Petty MD with a diagnosis of THORACIC BACK PAIN AND RIGHT ARM PAIN. Date of Evaluation: 06/20/20 Physical Therapist: Tyler Cronin, PT, Cert MDT, OCS - Visit Plan Frequency: 2x /Week Duration: 4 Weeks Plan: BREAST CA IN REMISSION BUT CONTS WITH TX -NO US/ESTIM. PT INTERVENTIONS CERVICAL/POSTUREAL EX'S,STRENGTHENING,MANUAL THERAPY AND ICT 10-16# X15MIN NEEDED - Subjective This 70 y/o female presents to physical therapy with thoracic back painand arm pain right arm pain. Patient developed scapular pain and right arm pain 2weeks ago . Symptoms intailly where constant but now pain is internmttant. Seen X-RAYS -. Aggraveting night time and in the morning ,lifting with arm . Alleviating factors aleve PM ,holding arm OH helps. Denies parathesia/tingling,Denies HERRERA/tinnutus/nausea/ Pain affects sleeping. Symptom aaffects ADL's and hosuework tasks. No h/o trauma or prior treatment.Patient c/o weakness right arm.COMORBITIES -breast CA in remission but takes MEDS,parkinsons. Patient symptoms QOL. SOCIAL; . VOCATION: retired - Pain Right Back Pain Intensity (Out of 10): 5 Comment: constant Right Scapula Pain Intensity (Out of 10): 5 Pain Intensity Range: 10 - Objective POSTURE: mild thoracic spine. PALAPTION: tender right scapular. NEURO: denies parathesia/tingling ,reflexes C5-6-7 2/3. AROM BUE: WFL. MMT: BUE grossly 4/5 shoulders 4-/5. 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# R ,55 L - Special Tests C/S Radiculapathy - Left Upper limb tension test: Negative C/S Radiculapathy - Right Upper limb tension test: Negative C/S Radiculapathy - Left Spurlings: Negative C/S Radiculapathy - Right Spurlings: Negative C/S Radiculapathy - Left Cervical distraction: Negative C/S Radiculapathy - Right Cervical distraction: Negative C/S Radiculapathy - Left Relief test: Negative Sharp Janeen: Negative Vertebral Artery Test: Negative Alar Ligament Test: Negative Cervical Sitting: Protrusion - Mechanical Response: No effect Cervical Sitting: Protrusion - Symptoms During Testing: No effect Cervical Sitting: Protrusion - Symptoms After Testing: No effect Cervical Sitting: Retraction - Mechanical Response: No effect Cervical Sitting: Retraction - Symptoms During Testing: No effect Cervical Sitting: Retraction - Symptoms After Testing: No effect Cervical Sitting: Retraction-Extension - Mechanical Response: No effect Cerv Sitting: Retraction-Extension - Symptoms During Testing: No effect Cerv Sitting: Retraction-Extension - Symptoms After Testing: No effect Cervical Sitting: Sidebend Right - Mechanical Response: No effect Cervical Sitting: Sidebend Right - Symptoms During Testing: No effect Cervical Sitting: Sidebend Right - Symptoms After Testing: No effect Cervical Sitting: Sidebend Left - Mechanical Response: No effect Cervical Sitting: Sidebend Left - Symptoms During Testing: Decreases Cervical Sitting: Sidebend Left - Symptoms After Testing: Better Cervical Sitting: Rotation Right - Mechanical Response: No effect Cervical Sitting: Rotation Right - Symptoms During Testing: No effect Cervical Sitting: Rotation Right - Symptoms After Testing: No effect Cervical Sitting: Rotation Left - Mechanical Response: No effect Cervical Sitting: Rotation Left - Symptoms During Testing: Decreases Cervical Sitting: Rotation Left - Symptoms After Testing: Better Cervical Sitting: Flexion - Mechanical Response: No effect Cervical Sitting: Flexion - Symptoms During Testing: Produces - Goals Goal 1:: I with HEP Goal Time Frame: 4-6 Weeks Goal 2:: Patient decrease cervical pain and right arm by 50% or > to improve function Goal Time Frame: 4-6 Weeks Goal 3:: Patient to improve cervical ROM for function of recovery Goal Time Frame: 4-6 Weeks Goal 4:: Patient to improve neck owestry score by 5 points or> to improve function and QOL. 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 Goal Time Frame: 4-6 Weeks - Rehabilitation Potential Physical Therapy Diagnosis: This patient has cervical readicular symptoms possine due to right lateral stenosis with pain right arm ,pain with sleeping ,weakness right UE along with h/o parrkinsons thus will benifit from skilled PT Rehabilitation Potential: Good - Anticipated Interventions Patient/Client Instruction: Educate patient on: Condition, Plan of Care For the Purpose of:: To decrease pain, To increase ROM, To improve nutrient delivery to tissue, To increase oxygenation perfusion, To improve muscle performance and motor function, To increase tolerance to activity/condition/position, To improve ability of physical actions for home/community/work/leisure, To improve health of tissue, To decrease soft tissue restriction, To increase flexibility/ROM, To reduce risk of recurrence Therapeutic Exercise to Include: Strength training, Postural training, Flexibilty training, Active ROM, Scapular Strength/Stabilization For the Purpose of:: To decrease pain, To increase ROM, To improve muscle performance and motor function, To improve ability to perform ADL's, To increase tolerance to activity/condition/position, To improve ability of physical actions for home/community/work/leisure, To improve health of tissue, To decrease soft tissue restriction, To reduce risk of recurrence, To improve ability to perform tasks related to life management Cryotherapy (ice pack, ice massage): Yes Thermo therapy (hot pack): Yes Intermittent cervical traction: Yes - 14-16 # For the Purpose of:: To decrease pain, To increase ROM, To improve health of tissue, To decrease soft tissue restriction Thank you for the opportunity to evaluate your patient. For Medicare and Medicare HMO plans, please review the plan of care and approve it. It will need to be FAXED BACK to us at [phone] for Medicare purposes. For Medicare only, by signing this I certify the plan of care. Please let me know if there are questions or concerns regarding this plan of care. Physician Signature: Date:
--- NOTE | 2020-07-11 10:23 | HP.PTDCSUM_ITS ---
It has been my pleasure to treat PARUL HUNTLEY referred by Dr. Mónica Petty MD, with the diagnosis of THORACIC BACK PAIN AND RIGHT ARM PAIN for a total of 6 visit(s). Discharge Date: 07/11/20 Please see the following information for a summary of their discharge status. Subjective: Doing well ..ready for d/c Right Back Pain Intensity (Out of 10): 0 Right Scapula Pain Intensity (Out of 10): 0 % Improvement: 100 Objective/Function: POSTURE:WFL. CERVICAL ROM: flexion min loss ,extension min loss ,rotation min loss,lateral flexion min loss. MMT: BUE 4/5 Goal 1:: I with HEP Goal Progress: Goal Met Goal 2:: Patient decrease cervical pain and right arm by 50% or > to improve function Goal Progress: Goal Met Goal 3:: Patient to improve cervical ROM for function of recovery Goal Progress: Goal Met Goal 4:: Patient to improve neck owestry score by 5 points or> to improve function and QOL. 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 Goal Progress: Goal Met Plan: d/c Discharge Comments: HEP If there are questions or concerns regarding this patient's physical therapy, please feel free to call me at [phone]. Thank you for the referral of this patient. Sincerely, Tyler Cronin PT, Cert MDT, OCS
== END 2020-07-11 19:00 | disposition home or self-care (01) ==
LOC: PT 10:00
PROVIDERS: PCP Internal Medicine; Referring Provider Internal Medicine; Visit Provider Internal Medicine
DX: M54.6 Pain in thoracic spine (principal); M79.601 Pain in right arm
CPT/HCPCS: 97012; 97110; 97162

== ENCOUNTER → 2020-11-08 11:25 | Outpatient (CLI) | payer MEDICARE, OTHER, SELFPAY ==
[2020-11-09 19:51] LABS: Cancer Antigen 125 11.8 U/mL (0.0-38.1)
== END ==
PROVIDERS: PCP Internal Medicine; Visit Provider Obstetrics & Gynecology
DX: N83.209 Unspecified ovarian cyst, unspecified side (principal)
CPT/HCPCS: 36415; 86304

== ENCOUNTER → 2020-12-20 10:36 | Outpatient (CLI) | payer MEDICARE, OTHER, SELFPAY ==
[2020-08-23 12:47] VITALS: BMI 24.8
--- NOTE | 2020-12-20 10:37 | BI_ITS ---
MAMMOGRAPHY - UNILATERAL SCREENING: LEFT BREAST REASON FOR EXAM: Female, 70 years old. Routine annual screening examination (unilateral). PERTINENT HISTORY: Personal history of breast cancer. Prior right mastectomy. TECHNIQUE: Digital unilateral breast rhoda (3D mammographic acquisition) in the CC and MLO projections. 2-D mediolateral oblique (MLO) and craniocaudad (CC) views of both breasts were obtained. CAD: Full Field Digital Mammography with Computer Added Detection was performed. COMPARISON: Comparison is made with prior study dated 12/20/2019 and 12/16/2018. FINDINGS: Breast Composition: The breasts are heterogeneously dense, which may obscure small masses. There are no dominant masses or suspicious calcifications. Stable small benign-appearing left axillary lymph nodes. No other significant abnormalities are identified. There has been no significant change since the prior study. BI/SCREEN MAMM (CAD) W/RHODA UNI L IMPRESSION: Stable unilateral screening mammogram. Yearly follow-up mammogram recommended. (A) ASSESSMENT CATEGORY: BIRADS Category 2: Benign. A letter regarding these results will be sent to the patient by the facility within 30 days. Approximately 10% of breast cancers are not detected by mammography. A normal mammogram should not delay biopsy of a clinically suspicious abnormality. [id number] Electronically Signed: Justice Dahl MD at 11:58 EDT , Service support ,
== END ==
PROVIDERS: PCP Internal Medicine; Referring Provider Internal Medicine Hematology & Oncology; Visit Provider Internal Medicine Hematology & Oncology
DX: Z12.31 Encounter for screening mammogram for malignant neoplasm of breast (principal)
CPT/HCPCS: 77063; 77067

== ENCOUNTER 2021-01-03 09:08 | Day surgery (SDC) | payer MEDICARE, OTHER, SELFPAY ==
--- NOTE | 2021-01-03 | LES_PTH ---
PATIENT: PARUL HUNTLEY LOC: [facility] [place] U#:[id number] AGE/SX: 70/F ROOM: RE01/03/[address]: Dr. Tyler Amezcua MD : 1950 BED: DIS: 01/03/2021 SPEC #: [id number] RECD: 01/03/21 12:17 STATUS: DWAIN RERayray #: [id number] AKSHAT: 01/03/21 00:[address]: Tyler Amezcua DEPT: SURGICAL PATHOLOGY RECD BY: Ruba Graff ENTERED: 01/03/21 14:02 SP TYPE: Lesion OTHR DR: Dr. Mónica Petty MD Tissues: Skin of scalp, NOS Procedures: Frozen Section (charge) Frozen Section Add'l ([facility]) Surgery Specimen Level IV HEADER OPERATION: Excision ulcerated lesion temporal parietal scalp with frozen section PRE-OP DIAGNOSIS: 1.5 cm scabby lesion right temporal parietal scalp suspicious for squamous cell carcinoma TISSUE SUBMITTED: 1.5 cm scabby lesion right temporal parietal scalp suspicious for squamous cell carcinoma, FS FROZEN SECTION DIAGNOSIS Right temporal parietal scalp lesion, biopsy: Consistent with seborrheic keratosis. Negative for carcinoma. FELICIANO:abena 01/03/2021 MICROSCOPIC DIAGNOSIS Right temporal-parietal scalp lesion, biopsy: Seborrheic keratosis and focal ulceration and associated acute and chronic inflammation. AM:abena 01/04/2021 MICROSCOPIC DESCRIPTION Slides are reviewed. GROSS DESCRIPTION Received fresh for frozen section diagnosis labeled with the patient's name is a specimen designated 1.5 cm lesion right temporal parietal scalp. The specimen consists of a round piece of cabrera-white skin with multiple hair on the surface measuring 2.5 x 2 x 0.3 cm. The specimen is inked, serially sectioned and submitted entirely for frozen section diagnosis in two cassettes. / FELICIANO:abena 01/03/21 TC:5 CPT: 09574, 38618, 24257
--- NOTE | 2021-01-03 01:14 | HP.PCM_ITS ---
History and Physical Date of Admission: 01/03/21 HISTORY OF PRESENT ILLNESS 70 year old woman presents for evaluation for TBSE. She has concerns about a lesion on her right temporal parietal scalp above the ear. It has increased in size over the last several months. She denies fever. She denies trauma. She has some bleeding from this lesion. She presents at this time for further evaluation and treatment. 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+] Generalized headaches GERD (gastroesophageal reflux disease) HLD (hyperlipidemia) Left bundle branch block (LBBB) Neoplasm of skin of scalp Nonrheumatic mitral (valve) insufficiency Osteopenia Parkinson disease Primary cancer of right female breast Ptosis of breast Right inguinal hernia Sinus bradycardia UTI (urinary tract infection) PAST SURGICAL HISTORY BREAST BIOPSY X2 IN 1997 History of appendectomy History of left heart catheterization (01/26/13) History of robot-assisted repair of inguinal hernia (~04/13/20) S/P right mastectomy THERMABLATION TUBAL LIGATION ALLERGIES sulfamethoxazole [From Bactrim] trimethoprim [From Bactrim] MEDICATIONS cholecalciferol (vitamin D3) lisinopril calcium citrate-vitamin D3 carbidopa-levodopa denosumab fluticasone-salmeterol furosemide metoprolol succinate naltrexone anastrozole FAMILY HISTORY Father - CAD (coronary artery disease), Myocardial infarction Mother - Myocardial infarction, CAD (coronary artery disease), Diabetes Sister - CAD (coronary artery disease), Diabetes, Hypertension Son - CVA (cerebral vascular accident) SOCIAL HISTORY Smoking Status: Never smoker alcohol intake: current alcohol intake frequency: other Alcohol type: wine details: PATIENT HAS A RARE GLASS OF WINE substance use type: does not use REVIEW OF SYSTEMS General - Denies fever, fatigue, and weight loss. Eyes - Denies cataracts and glaucoma. ENT - Denies nasal congestion and sore throat. Has chronic sinus problems. Endocrine - Denies excessive thirst and urination. Skin - Denies skin cancer. Has an enlarging lesion right temporal parietal scalp above the ear. Musculoskeletal - Has joint pain, joint stiffness, weakness of muscles and joints. Denies back pain, and arthritis. Neuro - Denies headaches. Cardiovascular - Denies chest pain, fatigue, and shortness of breath with exertion. Psych - Denies anxiety and depression. Respiratory - Denies chronic cough and shortness of breath. Has asthma. Gastrointestinal - Denies nausea, vomiting, diarrhea, and constipation. Hematologic - Denies abnormal bruising and bleeding. Genitourinary - Denies hematuria and urinary frequency. PHYSICAL EXAMINATION General - Alert and Oriented HEENT - PERRL. EOMI. Throat is clear. On the right temporal parietal scalp above the ear is a scabby lesion that measures 1.5 cm. No evidence of infection. Has irregular borders. No other suspicious lesions noted. Neck - Supple and nontender. No cervical adenopathy. No suspicious lesions noted. Lungs - Clear to auscultation. Heart - Regular rate and rhythm. Abdomen - Soft and nondistended. Extremities - FROM. No axillary adenopathy. Radial pulses are palpable. No suspicious lesions noted. Neuro - CN II-XII grossly intact. Psych - Normal mood and affect. ASSESSMENT 1.5 cm scabby lesion right temporal parietal scalp, suspicious for squamous cell carcinoma. PLAN Recommend excision of this lesion and send it to Pathology for analysis to rule out carcinoma. It will be a full thickness excision because of suspicion that squamous cell carcinoma is present. If carcinoma is present, then further excision will be done with skin graft or skin flap reconstruction. Surgery will be done under local anesthesia and IV sedation on an outpatient basis. Patient was informed of the risks and complications of the procedure including alternatives to surgery. These were discussed with the patient personally. Patient voices understanding and wishes to proceed. Some of the risks and complications were included in a form from the [employer]. We discussed the current risks associated with COVID-19. While it is understood that there is a community spread of COVID-19, the risk of mei COVID-19 while at [facility] ([facility]) is very low; however, the risk cannot be completely mitigated because of the community spread of the disease. We discussed in detail the risk of exposure to and/or potential harm posed by the COVID-19 virus with having a surgery/procedure at this time versus the risk of delaying the surgery/procedure. It is not possible to know either the risk of delaying the surgery or procedure or chance of getting an infection with perfect accuracy, but a joint decision was made to proceed at this time with the scheduled surgery/procedure as indicated on the consent form. Patient was notified that we will need to comply with any screening or testing [facility] wishes to perform or that surgery may be delayed for any positive results. Procedure Criteria Procedure Type: Elective COVID Risk Discussion: The surgeon/proceduralist and patient have discussed in detail the risk of exposure to and/or potential harm posed by the COVID-19 virus with having a surgery/procedure at this time versus the risk of delaying the surge ry/procedure. It is not possible to know either the risk of delaying the surgery or procedure or chance of getting an infection with perfect accuracy, but a joint decision was made between the patient and the surgeon/proceduralist to proceed at this time with the scheduled surgery/procedure as indicated on the consent form. Assessment & Plan Assessment/Plan (1) Inflamed seborrheic keratosis: (2) Neoplasm of skin of scalp:
[2021-01-03 09:42] VITALS: BP 128/75; PULSE 57; RESP 16; TEMP 36.5; O2SAT 96; BMI 26.2
[2021-01-03] MEDS: Lactated Ringers 1,000 ML 100 ML IV (09:54)
[2021-01-03] MEDS: Lidocaine 1% /Epi 1:100 (20ml) 20 ML Vial (12:08)
[2021-01-03] MEDS: Mupirocin Ointment 22gm Tube 1 APPLIC (12:35)
[2021-01-03 12:54] VITALS: BP 128/75; BP 136/80; PULSE 53; RESP 16; TEMP 35.8; O2SAT 97
[2021-01-03 13:00] VITALS: BP 128/75; BP 142/73; PULSE 58; RESP 16; O2SAT 95
[2021-01-03 13:15] VITALS: BP 128/75; BP 140/75; PULSE 58; RESP 16; TEMP 36.1; O2SAT 94
--- NOTE | 2021-01-03 13:26 | OP.PCM_ITS ---
Problems Associated Problem List Diagnoses (1) Inflamed seborrheic keratosis: (2) Neoplasm of skin of scalp: Report of Operation Date of Procedure: 01/03/21 Pre-Operative Diagnosis: 1.5 cm ulcerated lesion right temporal parietal scalp, suspicious for squamous cell carcinoma. Post-Operative Diagnosis: 1.5 cm ulcerated irritated seborrheic keratosis right temporal parietal scalp. Surgery/Procedure Performed:: Intradermal excision 1.5 cm ulcerated irritated seborrheic keratosis right temporal parietal scalp. Description of Surgical Findings:: 70 year old woman presents for evaluation for TBSE. She has concerns about a lesion on her right temporal parietal scalp above the ear. It has increased in size over the last several months. She denies fever. She denies trauma. She has some bleeding from this lesion. Patient was informed of the risks and complications of the procedure including alternatives to surgery. These were discussed with the patient personally. Pa tient voices understanding and wishes to proceed. Some of the risks and complications were included in a form from the [employer]. Frozen section right temporal parietal scalp - irritated seborrheic keratosis, and no carcinoma seen. Surgeon: Tyler Amezcua communications supervisor: Quin Pope Type of Anesthesia: General Specimen's removed: Ulcerated lesion right temporal parietal scalp, suspicious for squamous cell carcinoma, to Pathology . Drains: None. Estimated Blood Loss (mL): 10. Description of Procedure: Patient was taken to OR in supine position and was placed under general anesthesia. The right scalp and right flank areas were prepped and draped in the usual fashion. SCD's were placed for DVT prophylaxis. Perioperative antibiotics were given intravenously. Using xylocaine with epinephrine, the lesion right temporal parietal scalp was infiltrated. After waiting 5 minutes for the anesthetic to take effect, the lesion was excised in an intradermal fashion and sent to Pathology as a frozen section for analysis to rule out carcinoma. Frozen section showed and inflamed seborrheic keratosis and no carcinoma was seen. Hemostasis was obtained with electrocautery, gauze compression, and silver nitrate chemical cauterization. Antibiotic ointment was applied to be done daily. Patient tolerated the procedure well and was sent to PACU in satisfactory condition. Patient will be sent home on antibiotics and pain medication. She will keep her head elevated during the initial postoperative period. Patient will followup in a week for a wound check and for discussion of the pathology report. Grafts/Implants Used: None. Complications None. Admit VTE Documentation VTE Present on Admission: No VTE Mechan Device Prophylaxis: SCD's VTE Pharm Prophylaxis ordered?: No Addendum Addendum: Surgical Charges CPT - 81635 ICD-10 - L82.0, D49.2
--- NOTE | 2021-01-03 13:51 | PCM.DC ---
Discharge Instructions Follow Up Care Test Results: Test results from this visit will be discussed in further detail at your follow-up appointment, if applicable. Discharge Plan Admission Primary Reason for Your Visit: lesion right temporal parietal scalp. Attending Provider: Tyler Amezcua Primary Care Provider: Mónica Petty Discharge Orders/Prescriptions Prescriptions: New clindamycin HCl [Cleocin HCl] 300 mg capsule 300 mg PO TID Qty: 12 RF: 0 L.acidoph,saliva-B.bif-S.therm [Acidophilus Probiotic Blend] 175 mg capsule 1 cap PO DAILY Qty: 10 RF: 0 oxycodone-acetaminophen [Percocet] 5-325 mg tablet 1 tab PO BID PRN (Reason: pain (scale score 7-10)) 5 Days Qty: 10 RF: 0 Continued (DME) Breast Prosthesis Qty: 1 RF: 0 metoprolol succinate 25 mg tablet extended release 24 hr 25 mg PO QHS RF: 0 naltrexone 50 mg tablet 4.5 mg PO DAILY RF: 0 No Action calcium citrate-vitamin D3 [Calcium Citrate + D] 315-200 mg-unit tablet 1 tab PO DAILY RF: 0 Prolia 60 mg/mL syringe 60 mg SC [id number] RF: 0 furosemide [Lasix] 20 mg tablet 20 mg PO .QOD RF: 0 Hold Instructions: weight loss/weakness cholecalciferol (vitamin D3) 5,000 UNIT capsule 5,000 unit PO QHS RF: 0 fluticasone propion-salmeterol 250-50 mcg/dose blister with device 1 ea inhalation BID RF: 0 carbidopa-levodopa 25-100 mg tablet 1 tab PO Q6H RF: 0 lisinopril 40 mg tablet 40 mg PO QDAY Qty: 90 RF: 3 anastrozole 1 mg tablet 1 mg PO DAILY Qty: 90 RF: 1 Referrals / Follow Up: Mónica Petty MD [Primary Care Provider] - Disposition Disposition (needs filled in before D/C Order can be placed): Home, Self Care
[2021-01-03 14:27] VITALS: BP 128/75; BP 140/72; PULSE 58; RESP 16; TEMP 36.4; O2SAT 95
--- NOTE | 2021-01-03 14:34 | SUR.PHASEII ---
Pt ready and waiting for discharge, prescriptions filled. waiting for Dr Amezcua to put discharge orders in computer.
--- NOTE | 2021-01-03 14:49 | PCM.DC ---
Discharge Instructions Diet Discharge Diet: No restrictions Activity Discharge Activity: May Shower (in two days.) and - (no heavy lifting. keep head elevated.) May shower in (days): 2 May resume sexual activity in: No Restrictions Weight Bearing Status: Weight bearing as tolerated Lifting Restrictions: 20 lbs. Keep extremity elevated above heart level: - (elevate head.) Dressing / Incision Call your doctor if your incision/area has: Continuous Slow Oozing (put compression on the area and keep head elevated.), Sudden Increased Bleeding, Increased Pain/ Swelling, Increased Redness, Foul Smelling Discharge and Swelling at the incision site Call your doctor if you observe: Fever of 101 or Higher, Coldness, Increased Pain, Shortness of breath, Chest pain, Calf discomfort and Uncontrolled pain Suture Line Care: - (apply antibiotic ointment to scalp wound daily.) Cleanse incision/area with: - (may get the wound wet in the shower in two days.) Follow Up Care Please Follow Up With: Tyler Amezcua MD When: one week. call [phone] for appt. Test Results: Test results from this visit will be discussed in further detail at your follow-up appointment, if applicable. Discharge Plan Admission Primary Reason for Your Visit: lesion right temporal parietal scalp. Attending Provider: Tyler Amezcua Primary Care Provider: Mónica Petty Discharge Orders/Prescriptions Prescriptions: New clindamycin HCl [Cleocin HCl] 300 mg capsule 300 mg PO TID Qty: 12 RF: 0 L.acidoph,saliva-B.bif-S.therm [Acidophilus Probiotic Blend] 175 mg capsule 1 cap PO DAILY Qty: 10 RF: 0 oxycodone-acetaminophen [Percocet] 5-325 mg tablet 1 tab PO BID PRN (Reason: pain (scale score 7-10)) 5 Days Qty: 10 RF: 0 mupirocin 2 % ointment 1 applic topical DAILY Qty: 22 RF: 3 Continued (DME) Breast Prosthesis Qty: 1 RF: 0 metoprolol succinate 25 mg tablet extended release 24 hr 25 mg PO QHS RF: 0 naltrexone 50 mg tablet 4.5 mg PO DAILY RF: 0 No Action calcium citrate-vitamin D3 [Calcium Citrate + D] 315-200 mg-unit tablet 1 tab PO DAILY RF: 0 Prolia 60 mg/mL syringe 60 mg SC [id number] RF: 0 furosemide [Lasix] 20 mg tablet 20 mg PO .QOD RF: 0 Hold Instructions: weight loss/weakness cholecalciferol (vitamin D3) 5,000 UNIT capsule 5,000 unit PO QHS RF: 0 fluticasone propion-salmeterol 250-50 mcg/dose blister with device 1 ea inhalation BID RF: 0 carbidopa-levodopa 25-100 mg tablet 1 tab PO Q6H RF: 0 lisinopril 40 mg tablet 40 mg PO QDAY Qty: 90 RF: 3 anastrozole 1 mg tablet 1 mg PO DAILY Qty: 90 RF: 1 Referrals / Follow Up: Mónica Petty MD [Primary Care Provider] - Disposition Disposition (needs filled in before D/C Order can be placed): Home, Self Care
== END 2021-01-03 15:10 | disposition home or self-care (01) ==
LOC: SDC 09:12 → AC 09:13
PROVIDERS: PCP Internal Medicine; Referring Provider Surgery; Visit Provider Surgery
PROC: (CPT 11422; principal; 2021-01-03 11:00)
DX: L82.0 Inflamed seborrheic keratosis (principal); I11.0 Hypertensive heart disease with heart failure; I50.42 Chronic combined systolic (congestive) and diastolic (congestive) heart failure; M19.90 Unspecified osteoarthritis, unspecified site; J45.909 Unspecified asthma, uncomplicated; K21.9 Gastro-esophageal reflux disease without esophagitis; E78.5 Hyperlipidemia, unspecified; G20 Parkinson's disease; Z79.899 Other long term (current) drug therapy
CPT/HCPCS: 00300; 11422; 88305; 88331; 88332; J7120; J2405

== ENCOUNTER → 2021-01-30 11:58 | Outpatient (CLI) | payer MEDICARE, OTHER, SELFPAY ==
[2021-01-30 15:37] LABS: Thyroid Stim Hormone (TSH) 1.33 uIU/mL (0.358-3.74)
== END ==
PROVIDERS: PCP Internal Medicine; Referring Provider Psychiatry & Neurology Neurology; Visit Provider Psychiatry & Neurology Neurology
DX: E78.5 Hyperlipidemia, unspecified (principal)
CPT/HCPCS: 36415; 84443

== ENCOUNTER → 2021-02-27 09:21 | Outpatient (CLI) | payer MEDICARE, OTHER, SELFPAY ==
--- NOTE | 2021-02-27 09:25 | US_ITS ---
STUDY: ULTRASOUND BREAST - LEFT REASON FOR EXAM: Female, 70 years old. Left breast pain TECHNIQUE: Axial and longitudinal images of the LEFT breast were performed with a high resolution ultrasound transducer. # OF IMAGES: 32 COMPARISON: Screening mammogram 12/20/2020 FINDINGS: LEFT Breast: Heterogeneous background echotexture. Multiple longitudinal and transverse ultrasound images of the medial left breast failed to demonstrate a discrete solid or cystic mass.: US/Breast Limited Unilateral IMPRESSION: Normal left breast ultrasound. ASSESSMENT CATEGORY: BIRADS Category 1: Negative. A letter regarding these results will be sent to the patient by the facility within 30 days. Electronically Signed: Richard Ferris MD at 11:11 EST Tel , Service support ,
== END ==
PROVIDERS: PCP Internal Medicine; Referring Provider Nurse Practitioner Family; Visit Provider Nurse Practitioner Family
DX: N64.4 Mastodynia (principal)
CPT/HCPCS: 76642

== ENCOUNTER 2021-03-07 14:17 | Outpatient (CLI) | payer MEDICARE, OTHER, SELFPAY ==
--- NOTE | 2021-03-07 14:21 | CT_ITS ---
STUDY: CT CHEST WITH CONTRAST REASON FOR EXAM: Female, 70 years old. Left chest pain; history of right breast cancer with mastectomy. RADIATION DOSAGE (If Supplied By Facility): CTDIvol = ( 10.88 ) mGy, DLP = ( 341.09 ) mGycm TECHNIQUE: Transaxial imaging was performed following intravenous administration of IV 100mL Isovue-300. Multiplanar coronal and sagittal images were reformatted. Individualized dose optimization techniques were used for this CT. COMPARISON: Comparison is made with prior study dated 09/21/2019.. FINDINGS: The patient is status post right mastectomy with a breast implant. The lungs are normal. There is no demonstrated pleural abnormality. Normal heart and pericardium. Normal mediastinum. Normal hilar regions. Normal enhanced pulmonary arteries. Normal aorta arch and descending thoracic aorta. There are multi-level degenerative changes of the thoracic spine. There is no demonstrated abnormality of the visualized upper abdomen. CT/Chest WITH Contrast IMPRESSION: No acute abnormality is seen. Electronically Signed: Justice Dahl MD at 15:12 EST , Service support ,
== END 2021-03-07 23:59 | disposition short-term general hospital (02) ==
LOC: CT 14:20
PROVIDERS: PCP Internal Medicine; Referring Provider Nurse Practitioner Family; Visit Provider Nurse Practitioner Family
DX: N64.4 Mastodynia (principal)
CPT/HCPCS: 71260; Q9967

== ENCOUNTER 2021-04-04 08:17 | Outpatient (CLI) | payer MEDICARE, OTHER, SELFPAY ==
--- NOTE | 2021-04-04 08:26 | BD_ITS ---
STUDY: DUAL ENERGY X-RAY ABSORPTIOMETRY / DXA REASON FOR EXAM: Female, 70 years old. [id number]. The patient is postmenopausal TECHNIQUE: Bone Mineral Density (BMD) measurements of lumbar spine and bilateral hips were obtained. COMPARISON: Comparison is made with prior study dated 09/21/2019. FINDINGS: Lumbar Spine (L1-L4): g/cm2 (0.783) / T-score (-2.1) / Z-score (-0.1) Findings are suggestive of osteopenia with a high fracture risk. Left Femur Total: g/cm2 (0.738) / T-score (-1.7) / Z-score (-0.2) Left Femoral Neck: g/cm2 (0.604) / T-score (-2.2) / Z-score (-0.4) Right Femur Total: g/cm2 (0.756) / T-score (-1.5) / Z-score (0.0) Right Femoral Neck: g/cm2 (0.636) / T-score (-1.9) / Z-score (-0.1) The T-Scores on the most recent prior examination were: Lumbar Spine (L1-L4): There has been improvement of bone density since the previous examination. Left Femur Total: which represents an improvement of 3.7%. Right Femur Total: which represents an improvement of 0.7%. BD/Dexa Bone Density Study IMPRESSION: The patient is considered osteopenic as outlined below according to World Cal Organization (WHO) criteria with a high fracture risk. There has been improvement of bone density since the previous examination. Reference Information: The T-score is the number of standard deviations above or below the standard which is normal for young adults at their peak bone mineral density. The World Health Organization (WHO) interprets the T-scores as follows: Above -1 Normal bone density Between -1 and -2.5 Osteopenia Equal to / or below -2.5 Osteoporosis As a practical clinical guideline, osteopenia may be graded as follows: Mild -1 through -1.5 Moderate -1.6 through -2.0 Severe -2.1 through -2.4 The Z-score is the number of standard deviations above or below age-matched controls. A Z-score of less than -1.5 would be considered abnormal. References: 1. NIH Osteoporosis and Related Bone Diseases www osteo.org 2. International Society for Clinical Densitometry www iscd.org 3. National Osteoporosis Foundation www nof.org Electronically Signed: Justice Dahl MD at 15:09 EST ,
== END 2021-04-04 23:59 | disposition short-term general hospital (02) ==
LOC: OPBD 08:18
PROVIDERS: PCP Internal Medicine; Referring Provider Internal Medicine; Visit Provider Internal Medicine
DX: Z78.0 Asymptomatic menopausal state (principal)
CPT/HCPCS: 77080

== ENCOUNTER 2021-04-10 16:33 | Outpatient (CLI) | payer MEDICARE, OTHER, SELFPAY ==
--- NOTE | 2021-04-10 16:37 | RAD_ITS ---
STUDY: X-RAY - RIGHT KNEE REASON FOR EXAM: Female, 70 years old. KNEE PAIN TECHNIQUE: 3 view(s) of the knee. COMPARISON: Right knee x-ray dated February 17, 2018 FINDINGS: Normal visualized distal femur. Normal visualized proximal tibia and fibula. Normal proximal tibiofibular articulation. There is no demonstrated fracture. There is moderate degenerative arthrosis of the medial femorotibial compartment with moderate joint space narrowing. Normal lateral femorotibial compartment. There is mild degenerative arthrosis of the patellofemoral articulation. There is no demonstrated joint effusion. The soft tissue structures are unremarkable. RAD/Knee 4 or More Views IMPRESSION: Degenerative arthrosis. Electronically Signed: Ruddy Youngblood MD at 23:52 EST Reading Location ID and State: [facility] / [place] , Service support ,
== END 2021-04-10 23:59 | disposition home or self-care (01) ==
LOC: MTRAD 16:36
PROVIDERS: PCP Internal Medicine; Referring Provider Internal Medicine; Visit Provider Internal Medicine
DX: M25.561 Pain in right knee (principal)
CPT/HCPCS: 73564

== ENCOUNTER 2021-05-01 12:20 | Outpatient (CLI) | payer MEDICARE, OTHER, SELFPAY ==
--- NOTE | 2021-05-01 13:00 | MRI_ITS ---
STUDY: MRI RIGHT KNEE REASON FOR EXAM: Right knee pain for 3 months. TECHNIQUE: Standardized fat and water weighted pulse sequences were obtained in all 3 orthogonal planes. COMPARISON: Radiographs 04/10/2021. FINDINGS: There is tear/degeneration of the posterior horn of the medial meniscus (proton-density sagittal images 26-28) and body of the medial meniscus (proton-density coronal images 15-17). There is peripheral subluxation of the medial meniscus. There is arthrosis of the medial femorotibial compartment with small marginal osteophytes, chondral thinning (T2 sagittal image 17) and mild subchondral cystic change. Normal medial collateral ligamentous complex (MCL). Normal distal semimembranosus, gracilis and semitendinosus tendons. Normal lateral meniscus. Normal hyaline cartilage of the lateral femorotibial compartment. Normal lateral femoral condyle and tibial plateau. Normal proximal tibiofibular articulation. Normal lateral collateral (fibular) ligament. Normal popliteus tendon. Normal biceps femoris tendon. Normal anterior cruciate ligament (ACL). Normal posterior cruciate ligament (PCL). Normal congruent patellofemoral articulation. Normal hyaline cartilage of the patellofemoral compartment. Normal medial and lateral patellar retinaculum. Normal visualized quadriceps tendon. Normal patellar tendon. Normal Hoffa''s fat pad. There is a minimal volume of fluid in the knee joint. There is a very small popliteal cyst (T2 sagittal image 19). There is mild edema in the anterior subcutis adipose. The otherwise visualized osseous structures are unremarkable. MRI/Lower Ext Joint Only (Routine) IMPRESSION: Tear/degeneration of the medial meniscus. Arthrosis of the medial femorotibial compartment. Very small popliteal cyst. Electronically Signed: Marquez Camarillo MD at 13:52 EST ,
== END 2021-05-01 23:59 | disposition home or self-care (01) ==
PROVIDERS: PCP Internal Medicine; Referring Provider Internal Medicine; Visit Provider Internal Medicine
DX: M25.561 Pain in right knee (principal)
CPT/HCPCS: 73721

== ENCOUNTER 2021-05-14 13:41 | Outpatient (CLI) | payer MEDICARE, OTHER, SELFPAY ==
[2021-05-16 13:53] LABS: Cancer Antigen 125 11.5 U/mL (0.0-38.1)
== END 2021-05-14 23:59 | disposition home or self-care (01) ==
LOC: WOBLAB 13:44
PROVIDERS: PCP Internal Medicine; Visit Provider Obstetrics & Gynecology
DX: N83.202 Unspecified ovarian cyst, left side (principal)
CPT/HCPCS: 36415; 86304

== ENCOUNTER → 2021-12-21 | Outpatient (CLI) | payer MEDICARE, OTHER, SELFPAY ==
--- NOTE | 2021-12-21 11:51 | BI_ITS ---
MAMMOGRAPHY - UNILATERAL SCREENING: LEFT BREAST REASON FOR EXAM: Female, 71 years old. Routine annual screening examination (unilateral). PERTINENT HISTORY: Personal history of breast cancer with previous right mastectomy TECHNIQUE: Digital examination. Mediolateral oblique (MLO) and craniocaudad (CC) views of the breast were obtained. CAD: CAD was performed on this study. COMPARISON: 12/20/2020 FINDINGS: Breast Composition: There are scattered areas of fibroglandular density. There are no dominant masses or suspicious calcifications. No other significant abnormalities are identified. BI/SCREEN MAMM (CAD) W/RHODA UNI L IMPRESSION: Stable bilateral screening mammogram. ASSESSMENT CATEGORY: BIRADS Category 2: Benign. A letter regarding these results will be sent to the patient by the facility within 30 days. FOLLOW UP RECOMMENDATION: Yearly follow up mammogram recommended. (A) [id number] Approximately 10% of breast cancers are not detected by mammography. A normal mammogram should not delay biopsy of a clinically suspicious abnormality. [id number] Electronically Signed: Raphael Roe MD at 12:58 EDT ,
== END | disposition home or self-care (01) ==
LOC: OPBI 11:50
PROVIDERS: PCP Internal Medicine; Referring Provider Internal Medicine Hematology & Oncology; Visit Provider Internal Medicine Hematology & Oncology
DX: Z12.31 Encounter for screening mammogram for malignant neoplasm of breast (principal); Z90.11 Acquired absence of right breast and nipple; Z85.3 Personal history of malignant neoplasm of breast
CPT/HCPCS: 77063; 77067

== ENCOUNTER → 2021-12-22 | Outpatient (CLI) | payer MEDICARE, OTHER, SELFPAY ==
[2021-12-22 10:24] LABS: Hematocrit 40.1 % (37-47); Hemoglobin 13.4 g/dL (12.0-15.0); Mean Corp Hgb Conc 33.4 g/dL (32-36); Mean Corpuscular Hgb 30.7 pg (27.0-32.0); Mean Corpuscular Volume 91.8 fL (81-99); Mean Platelet Vol. 9.7 fl (6.2-12.0); Platelet Count 297 K/mm3 (150-450); RBC Distribution Width SD 47.8 fl (35.1-43.9); Red Blood Count 4.37 M/mm3 (4.2-5.4); White Blood Count 5.6 K/mm3 (4.4-11.0)
[2021-12-22 10:30] LABS: Color, Urine Yellow (Yellow); Glucose, Dipstick Normal (Normal); Ketone-Dipstick Negative (Negative); Leukocyte Esterase-Dipstick 25 /ul (Negative); Nitrite-Dipstick Negative (Negative); Occult Blood-Urine Negative /ul (Negative); Protein-Dipstick Negative (Negative); Urine Bilirubin Dipstick Negative (Negative); Urine Clarity Clear (Clear); Urine Urobilinogen Normal (Normal)
--- NOTE | 2021-12-22 10:55 | RAD_ITS ---
STUDY: X-RAY - LUMBAR SPINE REASON FOR EXAM: Female, 71 years old. MID TO LOWER BACK PAIN TECHNIQUE: 5 view(s) of the lumbar spine were obtained. COMPARISON: None FINDINGS: Normal lumbar lordosis. Mild levoscoliosis centered at L2. There is a normal alignment of the vertebrae. Mild compression fractures of T12 and L4 which may be acute, subacute, or chronic. Clinical correlation and MRI would be useful. Normal disc space heights. Facet hypertrophy in the lower lumbar spine. The soft tissue structures are unremarkable. RAD/L/S Spine Min 4 Views IMPRESSION: 1. Mild compression fractures of T12 and L4 which may be acute, subacute, or chronic. Clinical correlation and MRI would be useful. 2. Mild levoscoliosis with diffuse degenerative disc disease. Electronically Signed: Richard Ferris MD at 11:25 EDT ,
--- NOTE | 2021-12-22 10:55 | RAD_ITS ---
STUDY: X-RAY - THORACIC SPINE REASON FOR EXAM: Female, 71 years old. MID TO LOWER BACK PAIN TECHNIQUE: 2 view(s) of the thoracic spine were obtained. COMPARISON: 06/13/2020 FINDINGS: Normal kyphosis of the thoracic spine. There is no substantial scoliosis. Interval development of moderate wedge compression fracture of T6 and mild wedge compression fracture of T12. Normal disc space heights. The soft tissue structures are unremarkable. RAD/Thoracic Spine 2 Views IMPRESSION: Interval development of compression fractures of T6 and T12. These may be acute, subacute, or chronic and clinical correlation and MRI would be useful. Electronically Signed: Richard Ferris MD at 11:20 EDT ,
[2021-12-22 11:24] LABS: Anion Gap 5 (5-15); BUN 16 mg/dL (7-18); BUN/Creat Ratio 15.5 RATIO (10-20); Calcium,Total 9.2 mg/dL (8.5-10.1); Chloride 106 mmol/L (98-107); Creatinine, Serum 1.03 mg/dL (0.55-1.02); EST Glomerular Filtration Rate 56 mL/min (>60); Est Glom Filt Rate - Afr Amer 68 mL/min (>60); Glucose 96 mg/dL (74-106); Sodium Level 139 mmol/L (136-145)
== END | disposition home or self-care (01) ==
PROVIDERS: PCP Internal Medicine; Referring Provider Internal Medicine; Visit Provider Internal Medicine
DX: M54.9 Dorsalgia, unspecified (principal)
CPT/HCPCS: 36415; 72070; 72110; 80048; 81002; 85027

== ENCOUNTER 2021-12-28 07:03 | Emergency (ER) | payer MEDICARE, OTHER, SELFPAY ==
[2021-12-28 07:04] VITALS: BP 140/95; PULSE 80; RESP 16; TEMP 35.8; O2SAT 96; BMI 24.8
--- NOTE | 2021-12-28 07:32 | EDS_ITS ---
HPI History of Present Illness Chief Complaint: Back Informant: patient Onset/Context/Timing Onset: Month(s) (1) Context: Gradual Onset Timing: Continuous Quality: - (Spasm) Location: Thoracic and Lumbar Worsened by: improves with Movement Relieved by: Nothing Associated Symptoms Associated Symptoms: Negative for Numbness, Tingling, Radiation to Right Leg, Radiation to Left Leg, Fever, Abdominal Pain, Dysuria, Unable to Ambulate, Unable to Transfer, Urinary Retention, Urinary Incontinence, Constipation or Fecal Incontinence Narrative Narrative: Patient presents with mid back pain that has been getting worse over the last month. Patient states she had x-rays which showed some compression fractures. Patient describes her pain as a spasm. Patient states her pain is over the lower thoracic and upper lumbar area. Patient states it is worse with movement such as coughing and sneezing. Patient states nothing makes it better. Patient states she was recently started on oxycodone which has not been helping. Wilfredo young denies any radiation of the pain. Patient denies any bowel or bladder changes. Patient denies any saddle anesthesia. [facility] Medical History Acquired absence of right breast and nipple Allergies Arthritis Asthma Asthma Cancer Cardiology follow-up encounter Chronic combined systolic and diastolic CHF (congestive heart failure) Disproportion of reconstructed breast Easy bruising Essential (primary) hypertension Estrogen receptor positive status [ER+] Excessive bleeding Generalized headaches GERD (gastroesophageal reflux disease) History of echocardiogram History of left bundle branch block (LBBB) History of rheumatic fever History of stress test HLD (hyperlipidemia) Left bundle branch block (LBBB) Leg cramps Neoplasm of skin of scalp Non-smoker Nonrheumatic mitral (valve) insufficiency Open wound of scalp Osteopenia Pain of left breast Parkinson disease Parkinson's disease Primary cancer of right female breast Ptosis of breast Right inguinal hernia Shortness of breath on exertion Sinus bradycardia Use of aromatase inhibitors UTI (urinary tract infection) Wears glasses Home Medications cholecalciferol (vitamin D3) 125 mcg (5,000 unit) capsule 5,000 unit PO QHS supplement 02/10/17 [History Last Taken 02/11/17 22:00 5000 units] Breast Prosthesis #1 ea 03/04/17 [Rx Last Taken Unknown] calcium citrate 315 mg-vitamin D3 5 mcg (200 unit) tablet (Calcium Citrate + D) 1 tab PO DAILY 08/27/18 [History Last Taken Unknown] denosumab 60 mg/mL subcutaneous syringe (Prolia) 60 mg subcut [id number] 09/02/19 [History Last Taken 02/15/20] carbidopa 25 mg-levodopa 100 mg tablet 1 tab PO 4X/DAY #360 tabs 07/24/21 [Rx Last Taken Unknown] anastrozole 1 mg tablet 1 mg PO DAILY #90 tabs 09/26/21 [Rx Last Taken Unknown] fluticasone 250 mcg-salmeterol 50 mcg/dose blistr powdr for inhalation (Advair Diskus) 1 inh inhalation BID 12/28/21 [History Last Taken Unknown] lisinopril 40 mg tablet 40 mg PO DAILY 12/28/21 [History Last Taken Unknown] oxycodone 5 mg tablet 5 mg PO Q6H PRN Pain 12/28/21 [History Last Taken Unknown] Allergy/AdvReac Type Severity Reaction Status Date / Time sulfamethoxazole Allergy Severe Swelling Verified 12/28/21 07:04 [From Bactrim] trimethoprim [From Bactrim] Allergy Severe Swelling Verified 12/28/21 07:04 Family History Father , AGE 60 CAD (coronary artery disease) Myocardial infarction Mother , AGE 70 Myocardial infarction CAD (coronary artery disease) Diabetes Sister CAD (coronary artery disease) Diabetes Hypertension Son CVA (cerebral vascular accident) Uncle Parkinson disease Surgical History BREAST BIOPSY X2 IN 1997 History of appendectomy History of excision of lesion History of left heart catheterization (01/26/13) History of robot-assisted repair of inguinal hernia (~04/13/20) S/P right mastectomy Status post right partial knee replacement THERMABLATION TUBAL LIGATION Social History Smoking Status: Never smoker Electronic Cigarette Use: not used alcohol intake: current alcohol intake frequency: other Alcohol type: wine details: PATIENT HAS A RARE GLASS OF WINE substance use type: does not use caffeine: Yes Type: coffee Number of servings: 1 additional social history: DOES NOT TAKE ASPIRIN DOES TAKE IBUPROFEN NEEDED ROS ROS ED Constitutional Constitutional ED: Denies chills or fever(s) Eyes Eyes: Denies blurry vision or change in vision ENT ENT ED: Denies rhinorrhea or sore throat Cardiovascular Cardiovascular: Denies chest pain or palpitations Respiratory/Chest Respiratory/Chest: Denies cough or dyspnea Gastrointestinal Gastrointestinal: Reports nausea and vomiting Genitourinary Genitourinary ED: Denies dysuria or hematuria Musculoskeletal Musculoskeletal: Reports back pain; Denies neck pain Integumentary Denies abscess or rash Neurologic Neurologic: Denies headache(s) or weakness Allergic/Immunologic Allergic/Immunologic ED: Denies mouth swelling or urticaria EXAM Physical Exam Const Vital Signs: 12/28/21 07:04 12/28/21 10:00 Temperature 96.4 F L Temperature Source Temporal Pulse Rate 80 57 L Respiratory Rate 16 Blood Pressure 140/95 H 179/90 H Blood Pressure Mean 110 119 Pulse Ox 96 Oxygen Delivery Method Room Air Positive well nourished and well developed General Appearance ED: well developed and NAD HEENT Reports moist mucous membranes Neck supple and no JVD Resp normal respiratory effort and clear to auscultation bilaterally Cardio regular rate and regular rhythm GI normal to inspection, nondistended, normoactive bowel sounds, soft to palpation and non-tender Back/Spine Back/Spine Narrative: There is tenderness over the lower thoracic spine and paraspinal muscles. There is no edema or ecchymosis. There is no bony crepitance or step-off. Range of motion was limited in all motions of the thoracic and lumbar spine secondary to pain. Strength is 5/5 bilaterally. There are no sensory deficits. Thoracic Spine / Upper Back: paraspinal muscle tenderness right Lumbar Spine / Lower Back: ROM limited and straight leg raise negative bilaterally Neuro oriented x3 and no sensory deficits noted Sensorium / Orientation: alert Motor Exam: strength 5/5 throughout MDM MDM MDM Narrative Medical decision making narrative: Patient was given morphine and Zofran initially. CBC was within normal limits. Comprehensive metabolic profile was essentially within normal limits. CT scan of the thoracic spine was obtained. There are compression fractures of T6 and T7. There is also loss of height of the T12 vertebrae. There are no metastatic or lytic lesions noted. This was interpreted by the radiologist and reviewed by myself. On reevaluation, patient was having persistent pain. Patient was given a repeat dose of morphine. Patient also asked if she could have a muscle relaxer. Patient was given a dose of Norflex. Patient had minimal relief with this. Patient was given a dose of Dilaudid. Case was discussed with her primary care physician. She states that the patient has oxycodone at home. She is trying to get the patient an MRI of her thoracic spine. She is also attempted to get the patient a TLSO brace. She will have the patient follow-up with Dr. Thacker from orthopedic spine surgery. Patient is feeling better after the Dilaudid. Patient wants to go home. Patient was instructed to follow-up with her primary care physician in 3 to 5 days. Patient was instructed return if worse in any way. Patient understood and was agreeable with the plan. All questions were answered. Lab Data Attestation: I reviewed the patient's lab results. Labs: Laboratory Results - last 24 hr 12/28/21 12/28/21 07:48 07:48 WBC 6.7 RBC 4.23 Hgb 12.9 Hct 38.1 MCV 90.1 MCH 30.5 MCHC 33.9 RDW Std Deviation 45.5 H RDW Coeff of Bruce 13.9 Plt Count 252 MPV 9.4 Immature Gran % (Auto) 0.100 Neut % (Auto) 76.6 H Lymph % (Auto) 12.9 L Casey % (Auto) 9.1 Eos % (Auto) 0.9 Baso % (Auto) 0.4 Absolute Neuts (auto) 5.1 Absolute Lymphs (auto) 0.86 Nucleated RBC % 0 Sodium 138 Potassium 3.8 Chloride 105 Carbon Dioxide 27.0 Anion Gap 6 BUN 16 Creatinine 1.07 H Estim Creat Clear Calc 38.69 Est GFR (MDRD) Af Amer 65 Est GFR (MDRD) Non-Af 54 L BUN/Creatinine Ratio 15.0 Glucose 99 Calcium 9.0 Total Bilirubin 0.50 AST 13 L ALT 10 L Alkaline Phosphatase 143 H Total Protein 7.1 Albumin 3.4 Globulin 3.7 Albumin/Globulin Ratio 0.9 Radiography Diagnostic Testing: Clinical Impression(s) from Imaging Studies Thoracic Spine CT 12/28/21 07:38 IMPRESSION: Compression fracture of the T6 and T7 vertebrae and loss of height of the T12 vertebrae. Small bilateral effusions slightly more on the right side with bibasilar atelectasis. Electronically Signed: Justice Dahl MD at 8:27 EDT , Discharge Plan Triage Chief Complaint: Back ED Provider: Gonzalo Monae Dx/Rx/DC Orders Clinical Impression: Acute right-sided thoracic back pain, Primary cancer of right female breast Instructions: ED Back Pain (Acute or Chronic) Prescriptions: No Action (DME) Breast Prosthesis Qty: 1 0RF Dose Instruction: As directed Rx Instructions: As directed calcium citrate-vitamin D3 [Calcium Citrate + D] 315-200 mg-unit tablet 1 tab PO DAILY Prolia 60 mg/mL syringe 60 mg SC [id number] carbidopa-levodopa 25-100 mg tablet 1 tab PO 4X/DAY Qty: 360 2RF cholecalciferol (vitamin D3) 5,000 UNIT capsule 5,000 unit PO QHS anastrozole 1 mg tablet 1 mg PO DAILY Qty: 90 1RF fluticasone propion-salmeterol [Advair Diskus] 250-50 mcg/dose blister with device 1 inh INHALATION BID Label Comments: 1 PUFF AERO POW BR ACT 2 TIMES DAILY lisinopril 40 mg tablet 40 mg PO DAILY oxycodone 5 mg Tablet 5 mg PO Q6H PRN (Reason: Pain) Primary Care Provider: Móinca Petty Referrals: Mónica Petty MD [Primary Care Provider] - 3-5 Days Disposition Disposition: Home, Self Care
--- NOTE | 2021-12-28 07:38 | CT_ITS ---
STUDY: CT THORACIC SPINE WITHOUT CONTRAST REASON FOR EXAM: Female, 71 years old. Right-sided rib pain. History of breast cancer. RADIATION DOSAGE (If Supplied By Facility): CTDIvol = ( 18.5 ) mGy, DLP = ( 625.13 ) mGycm TECHNIQUE: The patient was scanned in a multi detector CT scanner. High resolution imaging was performed. Images were obtained from T1 to T12 level. Sagittal and coronal images were reconstructed. Individualized dose optimization techniques were used for this CT. COMPARISON: Comparison is made with prior radiographs dated 12/22/2021. FINDINGS: There is degenerative disc disease and cervical spondylosis. There is an increased kyphosis of the thoracic spine. There is no substantial scoliosis. There is 50-60% loss of height of the superior endplate of the T6 and T7 vertebrae. Mild loss of height of the T12 vertebrae. There is multilevel degenerative disc disease with loss of the disc space heights. Small right pleural effusion with bibasilar atelectasis worse on the right side. CT/Spine Thoracic without Contras IMPRESSION: Compression fracture of the T6 and T7 vertebrae and loss of height of the T12 vertebrae. Small bilateral effusions slightly more on the right side with bibasilar atelectasis. Electronically Signed: Justice Dahl MD at 8:27 EDT ,
[2021-12-28] MEDS: Morphine 4 MG/ML Syringe IV ×2 (07:45→08:58)
[2021-12-28] MEDS: Ondansetron 4 MG/2 ML Vial IV (07:45)
[2021-12-28 07:52] LABS: Absolute Lymphocyte Count 0.86 X10^3/uL (0.83-4.51); Absolute Neutrophil Count 5.1 X10^3/uL (2.0-7.7); Basophil# 0.03 X10^3/uL; Basophil% 0.4 % (0-1); Eosinophil# 0.06 X10^3/uL; Eosinophils% 0.9 % (0-5); Hematocrit 38.1 % (37-47); Hemoglobin 12.9 g/dL (12.0-15.0); Lymphocyte # 0.86 X10^3/ul (0.83-4.51); Lymphocyte % 12.9 % (19-41); Mean Corp Hgb Conc 33.9 g/dL (32-36); Mean Corpuscular Hgb 30.5 pg (27.0-32.0); Mean Corpuscular Volume 90.1 fL (81-99); Mean Platelet Vol. 9.4 fl (6.2-12.0); Monocyte# 0.61 X10^3/uL; Monocyte% 9.1 % (0-10); NRBC Flagged by Analyzer 0 % (0-5); Neutrophil % 76.6 % (47-70); Platelet Count 252 K/mm3 (150-450); RBC Distribution Width CV 13.9 % (11.6-14.6); RBC Distribution Width SD 45.5 fl (35.1-43.9); Red Blood Count 4.23 M/mm3 (4.2-5.4); White Blood Count 6.7 K/mm3 (4.4-11.0)
[2021-12-28 08:08] LABS: ALB/GLOB Ratio 0.9 RATIO (0.9-2.4); AST(SGOT) 13 U/L (15-37); Alanine Aminotransfer ALT/SGPT 10 U/L (13-56); Albumin, Serum 3.4 g/dL (3.2-5.0); Alkaline Phosphatase 143 U/L (45-117); Anion Gap 6 (5-15); BUN 16 mg/dL (7-18); Chloride 105 mmol/L (98-107); Creatinine, Serum 1.07 mg/dL (0.55-1.02); EST Glomerular Filtration Rate 54 mL/min (>60); Est Glom Filt Rate - Afr Amer 65 mL/min (>60); Estimated Creatinine Clearance 38.69 ml/min; Globulin 3.7 g/dL (2.2-4.2); Glucose 99 mg/dL (74-106); Potassium 3.8 mmol/L (3.5-5.1); Protein, Total 7.1 g/dL (6.4-8.2); Sodium Level 138 mmol/L (136-145)
[2021-12-28] MEDS: Orphenadrine 60 MG/2 ML Ampul IM (08:58)
[2021-12-28 10:00] VITALS: BP 179/90; PULSE 57
[2021-12-28] MEDS: HYDROmorphone 1 MG/ML Syringe 0.5 MG IV (10:12)
--- NOTE | 2021-12-28 10:56 | ED.RN ---
Dr. Petty office calls states patient now has appt at 1315 today. Pt. aware. MRI calls shortly after stating patient can have her outpatient MRI today at 1200, about 1 week before scheduled. Pt requests to have MRI, Dr. Monae aware and will be discharging patient. Dr. Petty office called and will return call after speaking to physician regarding change of appointment.
--- NOTE | 2021-12-28 11:06 | ED.RN ---
Patient discharged to MRI waiting area, IV left in place and patient left in gown per request of MRI.
== END 2021-12-28 11:07 | disposition home or self-care (01) ==
PROVIDERS: Emergency Provider Emergency Medicine; PCP Internal Medicine; Visit Provider Emergency Medicine
DX: M54.6 Pain in thoracic spine (principal); M48.54XA Collapsed vertebra, not elsewhere classified, thoracic region, initial encounter for fracture; C50.911 Malignant neoplasm of unspecified site of right female breast; J45.909 Unspecified asthma, uncomplicated; E78.5 Hyperlipidemia, unspecified; I10 Essential (primary) hypertension; Z79.899 Other long term (current) drug therapy; Z90.11 Acquired absence of right breast and nipple; X58.XXXA Exposure to other specified factors, initial encounter
CPT/HCPCS: 72128; 72157; 80053; 85025; 96372; 96374; 96375; 96376; 99283; A9575; A4216; J2405

== ENCOUNTER → 2021-12-28 | Outpatient (CLI) | payer MEDICARE, OTHER, SELFPAY ==
--- NOTE | 2021-12-28 11:19 | MRI_ITS ---
HISTORY: Compression fracture, history of breast cancer. TECHNIQUE: Multiplanar and multisequence MR images of the cervical thoracic spine were obtained before and after the intravenous administration of 13 mL Clariscan. 236 images. COMPARISON: CT 12/28/2021, XR 12/22/2021. FINDINGS: VERTEBRAE: Moderate T6 compression fracture with approximately 50% loss of height, bone marrow edema and enhancement, and no significant retropulsion into the spinal canal. Moderate T7 compression fracture without significant bone marrow edema. Approximately 50% loss of height in the T7 vertebral body with minimal retropulsion into the spinal canal. Mild T12 compression fracture with approximately 30% loss of height, mild bone marrow edema and enhancement of the superior endplate, and minimal retropulsion into the spinal canal. Small circumscribed enhancing lesions of the T8 and T11 vertebral bodies, most compatible with hemangiomas. No abnormal convexity of the compression fractures. VERTEBRAL ALIGNMENT: Minimal 2 mm anterolisthesis of T6-7. Exaggeration of the thoracic kyphosis also centered at this level. No gross ligamentous tear. SPINAL CANAL: Thoracic cord cord signal and morphology within normal limits. No epidural collection or enhancing intradural extramedullary mass. SOFT TISSUES: Mild paraspinal edema enhancement at the level of the T6 compression fracture. INTERVERTEBRAL DISCS: Mild disc bulges at T5-6 and T6-7 without significant central canal stenosis or foraminal narrowing. Small left perineural cyst at T6-7. MRI/Spine Thoracic W/WO Contrast IMPRESSION: Acute-subacute T6 compression fracture with bone marrow edema and enhancement. Chronic T7 compression fracture. Minimal anterolisthesis and kyphosis at the level of the T6-7 compression fractures. Subacute-chronic T12 compression fracture. Small hemangiomas in the T8 and T11 vertebral bodies. No suspicious enhancing mass in the thoracic spine. Mild degenerative disc disease without significant spinal canal stenosis. Electronically Signed: Miya Grissom MD at 13:05 EDT ,
== END | disposition home or self-care (01) ==
LOC: MRI 11:17
PROVIDERS: PCP Internal Medicine; Referring Provider Internal Medicine; Visit Provider Internal Medicine
DX: M48.54XA Collapsed vertebra, not elsewhere classified, thoracic region, initial encounter for fracture (principal)
CPT/HCPCS: 72157; A9575

== ENCOUNTER → 2022-05-16 | Outpatient (CLI) | payer MEDICARE, OTHER, SELFPAY ==
[2022-05-17 14:35] LABS: Vitamin D 1,25-Dihydroxy 72.4 pg/mL (24.8-81.5)
== END | disposition home or self-care (01) ==
LOC: LAB 09:39
PROVIDERS: PCP Internal Medicine; Referring Provider Psychiatry & Neurology Neurology; Visit Provider Psychiatry & Neurology Neurology
DX: M85.80 Other specified disorders of bone density and structure, unspecified site (principal)
CPT/HCPCS: 36415; 82652

== ENCOUNTER → 2022-10-24 | Outpatient (CLI) | payer MEDICARE, OTHER, SELFPAY ==
--- NOTE | 2022-10-24 08:03 | NM_ITS ---
CLINICAL: 72-year-old female with history of compression fracture of the thoracic spine. WHOLE BODY 99m Tc MDP RADIONUCLIDE BONE SCINTIGRAPHY COMPARISON: None available FINDINGS: Following the intravenous administration of 28.0 mCi of 99m Tc MDP, whole body bone images reveal: 1. Increased radiopharmaceutical concentration is defined in the eighth and 12th thoracic vertebra diffusely. 2. Enhanced uptake is noted in the lower cervical spine posteriorly on the right, the ninth thoracic vertebra posteriorly on the right, the fourth and fifth lumbar vertebra, acromioclavicular compartments of both shoulders, sternoclavicular compartment of the left shoulder, lateral glenohumeral compartment of the left shoulder, the patellofemoral compartment of the right knee, the right-left forefoot, the left wrist. 3. The remaining skeletal structures are scintigraphically unremarkable with normal-appearing renal images and urinary bladder activity identified. Facilitated uptake is identified in the apparent right knee hemiarthroplasty. NM/Bone Scan Whole Body IMPRESSION: 1. The increase in radiopharmaceutical defined in the eighth and 12th thoracic vertebra is commensurate with trauma-compression fracture. 2. Degenerative arthrosis is defined in the cervical, thoracic and lumbar spine, bilateral shoulders, the right knee, the forefoot bilaterally and left wrists. 3. Increased uptake noted in the right knee hemiarthroplasty is consistent with loosening in the setting of pain and discomfort. Electronically Signed: Richard Pino, at 23:11 EDT ,
== END | disposition home or self-care (01) ==
LOC: NM 08:02
PROVIDERS: PCP Internal Medicine; Referring Provider Internal Medicine; Visit Provider Internal Medicine
DX: S22.000A Wedge compression fracture of unspecified thoracic vertebra, initial encounter for closed fracture (principal); X58.XXXA Exposure to other specified factors, initial encounter
CPT/HCPCS: 78306; A9503

== ENCOUNTER → 2022-10-30 | Outpatient (CLI) | payer MEDICARE, OTHER, SELFPAY ==
--- NOTE | 2022-10-30 08:50 | US_ITS ---
STUDY: ULTRASOUND BREAST - LEFT REASON FOR EXAM: Female, 72 years old. Palpable lump in the left inframammary fold. TECHNIQUE: Axial and longitudinal images of the LEFT breast were performed with a high resolution ultrasound transducer. # OF IMAGES: 27 COMPARISON: Comparison is made with prior mammogram done earlier in the day. FINDINGS: LEFT Breast: The inferior half of the left breast was examined with ultrasound. No sonographic abnormality is seen. US/Breast Limited Unilateral IMPRESSION: No sonographic abnormality is seen. ASSESSMENT CATEGORY: BIRADS Category 1: Negative. A letter regarding these results will be sent to the patient by the facility within 30 days. Electronically Signed: Justice Dahl MD at 12:41 EDT ,
--- NOTE | 2022-10-30 08:50 | BI_ITS ---
MAMMOGRAPHY - UNILATERAL DIAGNOSTIC: LEFT BREAST REASON FOR EXAM: Female, 72 years old. Palpable lump in the left inframammary fold. PERTINENT HISTORY: Personal history of breast cancer. Prior right mastectomy. TECHNIQUE: Digital unilateral breast chad (3D mammographic acquisition) in the CC and MLO projections. 2-D mediolateral oblique (MLO) and craniocaudad (CC) views of both breasts were obtained. CAD: Full Field Digital Mammography with Computer Added Detection was performed. COMPARISON: Comparison is made with prior study dated December 21, 2021 and December 20, 2020. FINDINGS: Breast Composition: The breasts are heterogeneously dense, which may obscure small masses. There are no dominant masses or suspicious calcifications. No other significant abnormalities are identified. There has been no significant change since the prior study. BI/DIAG MAMM W/CAD, UNILAT IMPRESSION: Stable unilateral diagnostic mammogram. With the patient''s history palpable lump in the inferior central portion of the left breast, correlation with ultrasound is recommended. ASSESSMENT CATEGORY: BIRADS Category 0: Incomplete. Need additional imaging evaluation. A letter regarding these results will be sent to the patient by the facility within 30 days. Approximately 10% of breast cancers are not detected by mammography. A normal mammogram should not delay biopsy of a clinically suspicious abnormality. Electronically Signed: Justice Dahl MD at 12:25 EDT ,
== END | disposition home or self-care (01) ==
LOC: OPBI 08:48
PROVIDERS: PCP Internal Medicine; Referring Provider Internal Medicine; Visit Provider Internal Medicine
DX: N63.24 Unspecified lump in the left breast, lower inner quadrant (principal); Z85.3 Personal history of malignant neoplasm of breast
CPT/HCPCS: 76642; 77061; 77065; G0279

== ENCOUNTER → 2022-11-11 | Outpatient (CLI) | payer MEDICARE, OTHER, SELFPAY ==
--- NOTE | 2022-11-11 12:42 | MRI_ITS ---
STUDY: MRI THORACIC SPINE WITH AND WITHOUT CONTRAST REASON FOR EXAM: Female, 72 years old. Abnormal bone scan of thoracic spine TECHNIQUE: IV 12ML CLARISCAN was administered for the contrast portion of the examination. COMPARISON: MRI thoracic spine with and without contrast 12/28/2021. FINDINGS: Increase thoracic kyphosis at the T7 vertebral body level. There is no substantial scoliosis. T1-2, T2-3, T3-4, T4-5, T5-6, T6-7, T7-8, T8-9, T9-10, T10-11, T11-12: Moderate anterior wedge compression fracture of the upper T6 vertebral body is now old without change with loss of the upper vertebral body height. Pronounced flattening of the anterior wedge compression fracture of the T7 vertebral body without bony edema is old. Mild old compression fracture of the upper T12 vertebral body is unchanged. Normal visualized thoracic cord. Normal conus medullaris that terminates at the upper L1 vertebral body level. The soft tissue structures are unremarkable. Following IV contrast administration, there are no abnormal enhancing lesions intradurally and extradurally. There is mild contrast enhancement of the T11 benign vertebral body hemangioma. MRI/Spine Thoracic W/WO Contrast IMPRESSION: 1. Increased thoracic kyphosis due to worsening of pronounced flattening of the anterior wedge compression fracture of the T7 vertebral body, previously 50% loss of the vertebral body height. This is an old fracture due to the absence of bone edema. 2. Moderate anterior wedge compression fracture of the upper T6 vertebral body is now old. There is no change of the loss of the upper vertebral body height. This was previously acute subacute. 3. Mild compression fracture of the upper T12 vertebral body is old and unchanged. 4. T11 benign vertebral body hemangioma is unchanged. 5. No abnormal enhancing lesions intradurally and extradurally. Electronically Signed: Jose Pearson MD at 9:14 EDT ,
== END | disposition home or self-care (01) ==
LOC: MRI 12:34
PROVIDERS: PCP Internal Medicine; Referring Provider Internal Medicine; Visit Provider Internal Medicine
DX: R94.8 Abnormal results of function studies of other organs and systems (principal)
CPT/HCPCS: 72157; A9575

== ENCOUNTER → 2022-11-18 | Outpatient (CLI) | payer MEDICARE, OTHER, SELFPAY ==
--- NOTE | 2022-11-18 | BRBX_PTH ---
PATIENT: PARUL HUNTLEY LOC: [facility] U#:[id number] AGE/SX: 72/F ROOM: RE11/18/[address]: Dr. Adilson Crawford MD : 1950 BED: DIS: 11/18/2022 SPEC #: [id number] RECD: 11/18/22 09:09 STATUS: DWAIN FERGUSON #: [id number] AKSHAT: 11/18/22 00:[address]: Adilson Crawford DEPT: SURGICAL PATHOLOGY RECD BY: Roderick Obregon ENTERED: 11/18/22 12:09 SP TYPE: BREAST BX OTHR DR: Dr. Mónica Petty MD Tissues: Left breast, NOS Procedures: Surgery Specimen Level IV HEADER OPERATION: Excisional biopsy left breast mass PRE-OP DIAGNOSIS: Left breast mass, probable lipoma TISSUE SUBMITTED: Left breast mass MICROSCOPIC DIAGNOSIS Left breast mass, excision: Fragments of benign fibrofatty tissue. See comment. AM:abena 11/19/2022 COMMENT Ductal elements are not identified. Clinical correlation is suggested. MICROSCOPIC DESCRIPTION Slides are reviewed. GROSS DESCRIPTION Received in fixative is one container labeled with the patient's name and designated mass left breast. The specimen consists of multiple irregular fragments of yellow adipose tissue that in aggregate measure 2.5 x 2.5 x 0.3 cm. The entire specimen is submitted in one cassette. / SJ:abena 11/18/2022 TC:5 CPT: 42321
== END | disposition home or self-care (01) ==
LOC: LABSPEC 09:11
PROVIDERS: PCP Internal Medicine; Referring Provider Surgery; Visit Provider Surgery
DX: N63.20 Unspecified lump in the left breast, unspecified quadrant (principal)
CPT/HCPCS: 88305

== ENCOUNTER → 2023-04-08 | Outpatient (CLI) | payer MEDICARE, OTHER, SELFPAY ==
--- NOTE | 2023-04-08 13:56 | BD_ITS ---
STUDY: DUAL ENERGY X-RAY ABSORPTIOMETRY / DXA REASON FOR EXAM: Female, 72 years old. SCREENING TECHNIQUE: Bone Mineral Density (BMD) measurements of lumbar spine and bilateral hips were obtained. COMPARISON: Comparison is made with prior study April 04, 2021. FINDINGS: Lumbar Spine (L1-L4): g/cm2 (0.851) / T-score (-1.5) / Z-score (0.6) Findings are suggestive of osteopenia with a low fracture risk. Left Femur Total: g/cm2 (0.729) / T-score (-1.7) / Z-score (-0.1) Left Femoral Neck: g/cm2 (0.631) / T-score (-2.0) / Z-score (-0.1) Right Femur Total: g/cm2 (0.729) / T-score (-1.7) / Z-score (-0.1) Right Femoral Neck: g/cm2 (0.643) / T-score (-1.9) / Z-score (0.0) The T-Scores on the most recent prior examination were: Lumbar Spine (L1-L4): There has been improvement of bone density since the previous examination. Left Femur Total: which represents a worsening of 1.2%. Right Femur Total: which represents a worsening of 3.6%. BD/Dexa Bone Density Study IMPRESSION: The patient is considered osteopenic as outlined below according to World Cal Organization (WHO) criteria with a moderate fracture risk. There has been worsening of bone density since the previous examination. Reference Information: The T-score is the number of standard deviations above or below the standard which is normal for young adults at their peak bone mineral density. The World Health Organization (WHO) interprets the T-scores as follows: Above -1 Normal bone density Between -1 and -2.5 Osteopenia Equal to / or below -2.5 Osteoporosis As a practical clinical guideline, osteopenia may be graded as follows: Mild -1 through -1.5 Moderate -1.6 through -2.0 Severe -2.1 through -2.4 The Z-score is the number of standard deviations above or below age-matched controls. A Z-score of less than -1.5 would be considered abnormal. References: 1. NIH Osteoporosis and Related Bone Diseases www osteo.org 2. International Society for Clinical Densitometry www iscd.org 3. National Osteoporosis Foundation www nof.org Electronically Signed: Justice Dahl MD at 9:22 EST ,
== END | disposition home or self-care (01) ==
LOC: OPBD 13:52
PROVIDERS: PCP Internal Medicine; Referring Provider Internal Medicine Hematology & Oncology; Visit Provider Internal Medicine Hematology & Oncology
DX: M85.80 Other specified disorders of bone density and structure, unspecified site (principal); Z78.0 Asymptomatic menopausal state; Z79.811 Long term (current) use of aromatase inhibitors
CPT/HCPCS: 77080

== ENCOUNTER → 2023-05-12 | Outpatient (CLI) | payer MEDICARE, OTHER, SELFPAY ==
--- NOTE | 2023-05-12 10:50 | US_ITS ---
STUDY: ULTRASOUND BREAST - LEFT REASON FOR EXAM: Female, 72 years old. Six-month follow-up of left ultrasound-guided breast biopsy. TECHNIQUE: Axial and longitudinal images of the LEFT breast were performed with a high resolution ultrasound transducer. # OF IMAGES: 19 COMPARISON: Comparison is made with prior study October 30, 2022. FINDINGS: LEFT Breast: There is an 8 mm x 9 mm x 5 mm hypoechoic nodular density at the 8:00 position of the breast 7 cm from the nipple. US/Breast Limited Unilateral IMPRESSION: 8 mm x 9 mm x 5 mm hypoechoic nodular density at the o''clock position of the breast at 7 cm from the nipple. ASSESSMENT CATEGORY: BIRADS Category 2: Benign. A letter regarding these results will be sent to the patient by the facility within 30 days. Electronically Signed: Justice Dahl MD at 12:42 EDT ,
== END | disposition home or self-care (01) ==
LOC: OPUS 10:50
PROVIDERS: PCP Internal Medicine; Referring Provider Surgery; Visit Provider Surgery
DX: N64.4 Mastodynia (principal); N63.20 Unspecified lump in the left breast, unspecified quadrant
CPT/HCPCS: 76642

== ENCOUNTER → 2023-10-15 | Outpatient (CLI) | payer MEDICARE, OTHER, SELFPAY ==
--- NOTE | 2023-10-15 09:46 | BI_ITS ---
MAMMOGRAPHY - UNILATERAL SCREENING: LEFT BREAST REASON FOR EXAM: Female, 73 years old. Routine annual screening examination (unilateral). PERTINENT HISTORY: Personal history of breast cancer. Prior right mastectomy. TECHNIQUE: Digital unilateral breast rhoda (3D mammographic acquisition) in the CC and MLO projections. 2-D mediolateral oblique (MLO) and craniocaudad (CC) views of both breasts were obtained. CAD: Full Field Digital Mammography with Computer Added Detection was performed. COMPARISON: Comparison is made with prior study dated October 30, 2022 and October 21, 2021. FINDINGS: Breast Composition: The breasts are heterogeneously dense, which may obscure small masses. There are no dominant masses or suspicious calcifications. No other significant abnormalities are identified. There has been no significant change since the prior study. BI/SCREEN MAMM (CAD) W/RHODA UNI L IMPRESSION: Stable unilateral screening mammogram. Yearly follow-up mammogram recommended. (A) ASSESSMENT CATEGORY: BIRADS Category 1: Negative. A letter regarding these results will be sent to the patient by the facility within 30 days. Approximately 10% of breast cancers are not detected by mammography. A normal mammogram should not delay biopsy of a clinically suspicious abnormality. [id number] Electronically Signed: Justice Dahl MD at 14:46 EDT ,
== END | disposition home or self-care (01) ==
LOC: OPBI 09:45
PROVIDERS: PCP Internal Medicine; Referring Provider Internal Medicine Hematology & Oncology; Visit Provider Internal Medicine Hematology & Oncology
DX: Z12.31 Encounter for screening mammogram for malignant neoplasm of breast (principal); Z85.3 Personal history of malignant neoplasm of breast
CPT/HCPCS: 77063; 77067

== ENCOUNTER 2024-05-04 10:53 | Emergency (ER) | payer MEDICARE, OTHER, SELFPAY ==
[2024-05-04 10:54] VITALS: BP 140/98; PULSE 67; RESP 16; TEMP 36.6; O2SAT 99; BMI 25.6
[2024-05-04 12:00] VITALS: BP 153/78; PULSE 54; RESP 18; O2SAT 98
--- NOTE | 2024-05-04 12:48 | EKG12_ITS ---
Test Reason : CP Blood Pressure : */* mmHG Vent. Rate : 61 BPM Atrial Rate : 61 BPM P-R Int : 186 ms QRS Dur : 144 ms QT Int : 462 ms P-R-T Axes : 31 -54 102 degrees QTcB Int : 465 ms Normal sinus rhythm Left axis deviation Left bundle branch block Abnormal ECG Confirmed by Tung Urias ([id number]), legal editor CAROLINE SCOTT ([id number]) on 05/06/2024 6:50:04 AM Referred By: SLICK/CONCEPCION Confirmed By: Tung Urias
--- NOTE | 2024-05-04 12:49 | EDS_ITS ---
HPI History of Present Illness Chief Complaint: Chest Pain Informant: patient and family Narrative Narrative: 73-year-old female woke up 5 AM this morning, about 7 hours prior to evaluation, with chest squeezing discomfort. It was throughout her thorax into her back as well, nonlateralizing. No radiation to her jaw, neck, arm. No abdominal discomfort, she felt tired, it lasted 3-5 minutes before resolved and has not returned. She made a phone call to her record tester who advised her to come to the ER for evaluation. She has a history of mitral valve prolapse and a left bundle branch block, no history of coronary disease she is a non-smoker. [facility] Medical History Fatigue Breast mass, left Breast lump Pain of left breast Open wound of scalp Wears glasses Cancer Easy bruising Excessive bleeding Parkinson's disease Non-smoker Asthma Shortness of breath on exertion Leg cramps History of stress test History of echocardiogram History of left bundle branch block (LBBB) Cardiology follow-up encounter History of rheumatic fever Neoplasm of skin of scalp Generalized headaches UTI (urinary tract infection) Arthritis Allergies Left bundle branch block (LBBB) Right inguinal hernia Chronic combined systolic and diastolic CHF (congestive heart failure) Essential (primary) hypertension Use of aromatase inhibitors Ptosis of breast Parkinson disease Asthma GERD (gastroesophageal reflux disease) Osteopenia Nonrheumatic mitral (valve) insufficiency Estrogen receptor positive status [ER+] 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 Primary cancer of right female breast Sinus bradycardia HLD (hyperlipidemia) Home Medications ?Medication ?Instructions ?Recorded ?Last Taken ?Type Breast Prosthesis #1 ea 03/04/17 Unknown Rx calcium 315 mg (as 1 tab PO DAILY 08/27/18 Unkn own History citrate)-vitamin D3 5 mcg (200 unit) tablet (Calcium Citrate + D) denosumab 60 mg/mL subcutaneous 60 mg subcut [id number] 09/02/19 02/15/20 History syringe (Prolia) fluticasone 250 mcg-salmeterol 50 1 inh inhalation BID 12/28/21 Unknown History mcg/dose blistr powdr for inhalation (Advair Diskus) lisinopril 40 mg tablet 40 mg PO DAILY 12/28/21 Unkn own History mecobalamin (vitamin B12) 10,000 mcg IM MONTHLY Unknown History mcg solution for injection metoprolol tartrate 25 mg tablet 25 mg PO BID 04/15/23 Unknown History carbidopa 25 mg-levodopa 100 mg 1 tab PO BID #180 tabs 03/22/24 Unknown Rx tablet carbidopa ER 50 mg-levodopa 200 mg See Rx Instructions .Route 03/22/24 Unknown Rx tablet,extended release .COMPLEX #180 tabs Allergy/AdvReac Type Severity Reaction Status Date / Time sulfamethoxazole (From Allergy Severe Swelling Verified 05/04/24 10:55 Bactrim) trimethoprim (From Bactrim) Allergy Severe Swelling Verified 05/04/24 10:55 Family History Father , AGE 60 CAD (coronary artery disease) Myocardial infarction Mother , AGE 70 Myocardial infarction CAD (coronary artery disease) Diabetes Sister CAD (coronary artery disease) Diabetes Hypertension Son CVA (cerebral vascular accident) Uncle Parkinson disease Surgical History History of breast lump/mass excision History of partial knee replacement History of hernia repair Status post right partial knee replacement History of excision of lesion History of robot-assisted repair of inguinal hernia (~04/13/20) History of left heart catheterization (01/26/13) S/P right mastectomy THERMABLATION BREAST BIOPSY X2 IN 1997 TUBAL LIGATION History of appendectomy Social History Smoking Status: Never smoker Electronic Cigarette Use: not used alcohol intake: current alcohol intake frequency: other Alcohol type: wine details: PATIENT HAS A RARE GLASS OF WINE substance use type: does not use caffeine: Yes Type: coffee Number of servings: 1 additional social history: DOES NOT TAKE ASPIRIN DOES TAKE IBUPROFEN NEEDED ROS ROS ED Constitutional Constitutional ED: Reports fatigue; Denies chills or fever(s) Eyes Eyes: Denies change in vision or diplopia ENT ENT ED: Denies rhinorrhea or sore throat Cardiovascular Cardiovascular: Reports as per HPI and chest pain; Denies palpitations or radiating jaw, neck or arm pain Respiratory/Chest Respiratory/Chest: Denies cough or dyspnea Gastrointestinal Gastrointestinal: Denies abdominal pain, diarrhea, nausea or vomiting Genitourinary Genitourinary ED: Denies dysuria or hematuria Musculoskeletal Musculoskeletal: Denies back pain or neck pain Integumentary Denies abscess or rash Neurologic Neurologic: Denies headache(s), paresthesias or weakness Psychiatric Psychiatric: Denies anxiety or suicidal thoughts EXAM Physical Exam Const Vital Signs: 05/04/24 10:54 05/04/24 12:00 05/04/24 12:57 Temperature 98 F Temperature Source Oral Pulse Rate 67 54 L Respiratory Rate 16 18 Blood Pressure 140/98 H 153/78 H Blood Pressure Mean 112 103 Pulse Ox 99 98 Oxygen Delivery Method Room Air Room Air 05/04/24 13:32 05/04/24 14:03 05/04/24 15:00 Temperature Temperature Source Pulse Rate 59 L 55 L 51 L Respiratory Rate 18 17 14 Blood Pressure 156/84 H 156/84 H Blood Pressure Mean 108 108 Pulse Ox 95 97 98 Oxygen Delivery Method Room Air Positive well nourished and well developed General Appearance ED: well developed and NAD HEENT Reports moist mucous membranes normocephalic and atraumatic Eyes PERRL and EOMs intact bilaterally Neck full ROM and supple Resp normal respiratory effort and clear to auscultation bilaterally Cardio regular rate, regular rhythm and no murmurs GI non-tender and non-distended Auscultation: normoactive bowel sounds Palpation: soft Back/Spine no CVA tenderness General Back: other FROM Extremity normal to inspection General Extremety ED: Negative for edema, pulses abnormal or tenderness General Extremity: Negative for edema or pulses abnormal Neuro oriented x3, CN's II-XII intact bilaterally and no sensory deficits noted Sensorium / Orientation: awake and alert Motor Exam: strength 5/5 throughout Skin no rashes or lesions noted and no wounds Heart Score History: Slightly/Non-Suspicious ECG: Normal Age: >/= 65 years Risk Factors: 1 or 2 Risk Factors Troponin: </= Normal Limit Score: 3 MDM MDM MDM Narrative Medical decision making narrative: Patient states she has had episodes like this in the past, they are uncommon and not all recent. Today she is having it evaluated and she feels better now. I think this is a low risk story for this being cardiac, but her calcium score of 0 from about 6.5 years ago is also very reassuring. Her EKG shows a stable left bundle branch block, limiting further interpretation of her discomfort based on EKG, so 2 sequential troponin measurements were obtained, they are both negative and the patient had no recurrent symptoms. Her HEART score is 3. Given all of this I am comfortable with the patient being discharged home and fo llowing up as an outpatient she is as well. History & Record Review Additional record(s) reviewed:: Prior outpatient record (Cardiology 2020, coronary CTA 2017 with calcium score 0) Lab Data Attestation: I reviewed the patient's lab results. Labs: Laboratory Results - last 24 hr 05/04/24 11:30 WBC 5.4 RBC 4.25 Hgb 12.5 Hct 38.7 MCV 91.1 MCH 29.4 MCHC 32.3 RDW Std Deviation 48.2 H RDW Coeff of Bruce 14.4 Plt Count 314 MPV 10.0 Immature Gran % (Auto) 0.400 Neut % (Auto) 73.1 H Lymph % (Auto) 18.2 L [place] % (Auto) 6.5 Eos % (Auto) 1.1 Baso % (Auto) 0.7 Absolute Neuts (auto) 3.9 Absolute Lymphs (auto) 0.98 Nucleated RBC % 0 Sodium 139 Potassium 3.9 Chloride 102 Carbon Dioxide 23.6 Anion Gap 13 BUN 21 H Creatinine 0.95 Estim Creat Clear Calc 45.01 L Est GFR (MDRD) Non-Af 64 BUN/Creatinine Ratio 22.5 H Glucose 104 H Calcium 8.8 Troponin T High Sens 8 Radiography Diagnostic Testing: Clinical Impression(s) from Imaging Studies Chest X-Ray 05/04/24 13:00 IMPRESSION: Borderline cardiomegaly. Mild increased markings in the right middle lobe suggestive of possible scarring. Reading Location: [facility] Rhythm Strip Rhythm Strip: Sinus Rhythm Rate: 60 Ectopy: None EKG Initial EKG: Attestation: I personally reviewed and interpreted this EKG as follows: Interpretation: Sinus Rhythm, No Acute Injury Pattern and LBBB Prior EKG tracings: available for review Prior: Unchanged Discharge Plan Triage Chief Complaint: Chest Pain ED Provider: Aneesh Butler Dx/Rx/DC Orders Clinical Impression: Chest pain, unspecified Instructions: ED Chest Pain, Uncertain Cause Prescriptions: No Action (DME) Breast Prosthesis Qty: 1 0RF Dose Instruction: As directed Rx Instructions: As directed calcium citrate-vitamin D3 [Calcium Citrate + D] 315-200 mg-unit tablet 1 tab PO DAILY Prolia 60 mg/mL syringe 60 mg SC [id number] mecobalamin (vitamin B12) 10,000 mcg recon soln IM MONTHLY metoprolol tartrate 25 mg tablet 25 mg PO BID carbidopa-levodopa 25-100 mg tablet 1 tab PO BID Qty: 180 2RF carbidopa-levodopa 50-200 mg tablet extended release See Rx Instructions .ROUTE .COMPLEX Qty: 180 2RF Rx Instructions: Take 1 tablet orally every morning and 1 tablet nightly. fluticasone propion-salmeterol [Advair Diskus] 250-50 mcg/dose blister with device 1 inh INHALATION BID Patient Comments: 1 PUFF AERO POW BR ACT 2 TIMES DAILY lisinopril 40 mg tablet 40 mg PO DAILY Primary Care Provider: Mónica Petty Referrals: Mónica Petty MD [Primary Care Provider] - As soon as possible Print Language: Mongolian Disposition Disposition: Home, Self Care
[2024-05-04] MEDS: Aspirin 81 MG TAB.CHEW 162 MG PO (12:56)
--- NOTE | 2024-05-04 13:00 | RAD_ITS ---
PROCEDURE: CHEST 1 VIEW (PORTABLE) REASON FOR EXAM: Chest tightness and chest pain. TECHNIQUE: Frontal view of the chest. COMPARISON: Comparison is made with prior study dated October 18, 2022. FINDINGS: EKG electrodes are seen. Borderline cardiomegaly. Stable mild increased markings in the right mid lung suggestive of scarring. Surgical clips are seen in the right axilla. Tortuosity of the descending thoracic aorta. Degenerative changes of the dorsal spine. Almost complete collapse of the T7 vertebrae. This is unchanged. RAD/Chest 1 View (Portable) IMPRESSION: Borderline cardiomegaly. Mild increased markings in the right middle lobe suggestive of possible scarrin g. Reading Location: [id number]
[2024-05-04 13:11] LABS: Absolute Lymphocyte Count 0.98 X10^3/uL (0.83-4.51); Absolute Neutrophil Count 3.9 X10^3/uL (2.0-7.7); Basophil# 0.04 X10^3/uL; Basophil% 0.7 % (0-1); Eosinophil# 0.06 X10^3/uL; Eosinophils% 1.1 % (0-5); Hematocrit 38.7 % (37-47); Hemoglobin 12.5 g/dL (12.0-15.0); Lymphocyte # 0.98 X10^3/ul (0.83-4.51); Lymphocyte % 18.2 % (19-41); Mean Corp Hgb Conc 32.3 g/dL (32-36); Mean Corpuscular Hgb 29.4 pg (27.0-32.0); Mean Corpuscular Volume 91.1 fL (81-99); Monocyte# 0.35 X10^3/uL; Monocyte% 6.5 % (0-10); NRBC Flagged by Analyzer 0 % (0-5); Neutrophil # 3.93 X10^3/uL (2.7-7.7); Neutrophil % 73.1 % (47-70); Platelet Count 314 K/mm3 (150-450); RBC Distribution Width CV 14.4 % (11.6-14.6); RBC Distribution Width SD 48.2 fl (35.1-43.9); Red Blood Count 4.25 M/mm3 (4.2-5.4); White Blood Count 5.4 K/mm3 (4.4-11.0)
[2024-05-04 13:24] LABS: Anion Gap 13 (5-15); BUN 21 mg/dL (4-19); BUN/Creat Ratio 22.5 RATIO (10-20); Calcium,Total 8.8 mg/dL (7.6-11.0); Carbon Dioxide 23.6 mmol/L (21.0-32.0); Chloride 102 mmol/L (98-108); Creatinine, Serum 0.95 mg/dL (0.70-1.20); EST Glomerular Filtration Rate 64 (>60); Estimated Creatinine Clearance 45.01 ml/min (50-250); Glucose 104 mg/dL (70-99); Potassium 3.9 mmol/L (3.3-5.1); Sodium Level 139 mmol/L (133-145); Troponin T High Sensitivity 8 ng/L (<=14)
[2024-05-04 13:32] VITALS: BP 156/84; PULSE 59; RESP 18; O2SAT 95
[2024-05-04 14:03] VITALS: BP 156/84; PULSE 55; RESP 17; O2SAT 97
[2024-05-04 15:00] VITALS: PULSE 51; RESP 14; O2SAT 98
[2024-05-04 17:05] VITALS: BP 182/84; PULSE 60; RESP 17; O2SAT 94
[2024-05-04 17:57] LABS: TROPONIN VARIANCE 2 HR 2; Troponin T High Sens 2 HR 10 ng/L (<=14)
== END 2024-05-04 18:21 | disposition home or self-care (01) ==
PROVIDERS: Emergency Provider Emergency Medicine; PCP Internal Medicine; Visit Provider Emergency Medicine
DX: R07.9 Chest pain, unspecified (principal); I50.42 Chronic combined systolic (congestive) and diastolic (congestive) heart failure; I11.0 Hypertensive heart disease with heart failure; I44.7 Left bundle-branch block, unspecified; J45.909 Unspecified asthma, uncomplicated; K21.9 Gastro-esophageal reflux disease without esophagitis; E78.5 Hyperlipidemia, unspecified
CPT/HCPCS: 71045; 80048; 84484; 85025; 93005; 96374; 99284; A4216

== ENCOUNTER → 2024-05-14 | Outpatient (CLI) | payer MEDICARE, OTHER, SELFPAY ==
--- NOTE | 2024-05-18 14:16 | STRESSREP ---
Stress Test Report Date: 05/14/2024 Procedure: Pharmacologic stress nuclear imaging study Indications: Chest pain Consent: Per the patient Procedure: The patient underwent pharmacologic (Regadenoson) evaluation with a peak heart rate of 76 beats per minute (51%predicted maximal heart rate) and a peak blood pressure of 120/80 mmHg. The baseline ECG demonstrated normal sinus rhythm, LBBB, poor R wave progression in the anterior leads. EKG during lexiscan infusion revealed no significant ischemic changes. EKG post infusion revealed no significant ischemic changes. [There were no cardiac dysrhythmias pretest, during pharmacologic infusion, or recovery]. [There was no complaint of chest discomfort during pharmacologic infusion or recovery]. The examination was discontinued secondary to completion of protocol. Impression: 1. Lexiscan stress test test is negative for Lexiscan infusion induced EKG changes of ischemia. 2. Lexiscan stress test test is negative for Lexiscan infusion induced chest pain. 3. Results of the nuclear portion of the test is as below Myocardial perfusion imaging study: Technique: The patient was injected with 11.9 millicuries of technetium 99m Cardiolite and subsequently rest SPECT Cardiolite nuclear imaging was obtained in the horizontal long, vertical long, and short axis views. The patient underwent pharmacologic [Regadenoson 0.4mg] evaluation. Please see above for details. The patient was injected with 34.7 millicuries of technetium 99m Cardiolite and subsequently stress SPECT Cardiolite nuclear imaging was obtained in the horizontal long, vertical long, and short axis views. A gated Cardiolite study at peak stress was obtained. Interpretation: Rest and stress SPECT Cardiolite nuclear imaging status post realignment, normalization, and attenuation correction demonstrate no evidence of significant ischemia. There is a fixed apical defect. Gated images reveal no significant regional wall motion abnormalities. The reported LVEF is 67%. Impression: 1. There is no evidence of significant ischemia. 2. Estimated ejection fraction is 67%. This note was generated with Neptuneation software. It may contain incorrect words, spelling, and punctuation that were not noted in checking the note before signing.
== END | disposition home or self-care (01) ==
LOC: CVS 06:48
PROVIDERS: PCP Internal Medicine; Referring Provider Internal Medicine; Visit Provider Internal Medicine
DX: R07.9 Chest pain, unspecified (principal)
CPT/HCPCS: 78452; 93017; A9500; A4216; J2785

== ENCOUNTER → 2024-10-15 | Outpatient (CLI) | payer MEDICARE, OTHER, SELFPAY ==
--- NOTE | 2024-10-15 10:00 | BI_ITS ---
EXAM: SCREEN MAMM (CAD) W/RHODA UNI L DATE: 10/15/2024 CLINICAL HISTORY: F, Age 74 y/o , SCREENING TECHNIQUE: SCREEN MAMM (CAD) W/RHODA UNI L COMPARISON: Prior exam(s) dated 10/15/2023, 10/30/2022, 12/21/2021. FINDINGS: TISSUE DENSITY: The breasts are heterogeneously dense, which may obscure small masses. The mammogram demonstrates that the patient has dense breasts. Supplemental screening with whole breast ultrasound or MRI may be considered for further evaluation. Unilateral Left Breast Mammographic Findings: No significant masses, calcifications or other abnormalities are identified. BI/SCREEN MAMM (CAD) W/RHODA UNI L IMPRESSION: There is no mammographic evidence of malignancy. OVERALL FINAL ASSESSMENT BI-RADS 1: NEGATIVE. RECOMMENDATION: Routine annual follow-up in 1 Year A letter with findings and recommendations will be mailed to the patient. Reading Location: [id number]
== END | disposition home or self-care (01) ==
LOC: OPBI 09:46
PROVIDERS: PCP Internal Medicine; Referring Provider Internal Medicine Hematology & Oncology; Visit Provider Internal Medicine Hematology & Oncology
DX: Z12.31 Encounter for screening mammogram for malignant neoplasm of breast (principal)
CPT/HCPCS: 77063; 77067

== ENCOUNTER → 2024-10-25 | Outpatient (CLI) | payer MEDICARE, OTHER, SELFPAY ==
--- NOTE | 2024-10-25 15:01 | ECHOD_ITS ---
Reason For Study Reason For Study: MURMUR Procedure This was a 2D Doppler, Color Flow transthoracic echocardiogram. Exam performed in department. Left Ventricle Normal LV size. Mild concentric left ventricular hypertrophy. Septal motion consistent with bundle branch block. The left ventricular ejection fraction is 50 %. Stage 1 diastolic dysfunction. There is borderline global hypokinesis of the left ventricle. Right Ventricle Normal RV size. Normal systolic function. Atria Normal left atrium. Normal right atrium. Mitral Valve Normal mitral valve. Mild (1+) mitral valve insufficiency. Tricuspid Valve Normal tricuspid valve. Mild (1+) tricuspid valve insufficiency. Pulmonary artery systolic pressure is 25 mmHg. Aortic Valve Trisinus/trileaflet aortic valve. Pulmonic Valve Normal pulmonic valve. Great Vessels Normal aortic root. Pericardium/Pleural No pericardial effusion. MMode/2D Measurements & Calculations LVIDd: 3.2 cm IVSd: 1.3 cm LVOT diam: 2.2 cm LVIDs: 2.5 cm LVPWd: 1.1 cm LVOT area: 3.7 cm2 RVDd: 3.4 cm FS: 22.0 % asc Aorta Diam: 3.8 cm LAV(MOD-bp): 46.3 ml LVAd ap4: 28.1 cm2 LAV(MOD-bp) Indexed: 29.8 ml/m2 LVLd ap4: 8.1 cm LAV(MOD-sp2): 41.7 ml EDV(MOD-sp4): 81.0 ml LAV(MOD-sp4): 43.6 ml EDV(sp4-el): 83.2 ml LVAs ap4: 19.8 cm2 LVLs ap4: 7.3 cm ESV(MOD-sp4): 44.3 ml ESV(sp4-el): 45.4 ml EF(MOD-sp4): 45.3 % EF(sp4-el): 45.5 % LVAd ap2: 30.9 cm2 SV(MOD-sp4): 36.7 ml SV(MOD-sp2): 49.0 ml LVLd ap2: 8.2 cm SI(MOD-sp4): 23.6 ml/m2 SI(MOD-sp2): 31.5 ml/m2 EDV(MOD-sp2): 94.9 ml EDV(sp2-el): 98.1 ml LVAs ap2: 20.3 cm2 LVLs ap2: 7.4 cm ESV(MOD-sp2): 45.9 ml ESV(sp2-el): 47.4 ml EF(MOD-sp2): 51.6 % SV(sp4-el): 37.9 ml Ao sinus diam: 3.[address] Junction: 3.1 cm LA dimension(2D): 3.6 cm LA A4 area: 16.6 cm2 RA A4 area: 12.6 cm2 TAPSE: 1.7 cm Time Measurements MV dec time: 0.35 sec Doppler Measurements & Calculations MV E max guido: 52.2 cm/sec Med Peak E' Guido: 6.4 cm/sec MV dec slope: 147.9 cm/sec2 MV A max guido: 95.4 cm/sec E/E' med: 8.2 MV E/A: 0.55 Ao V2 max: 110.1 cm/sec LV V1 max: 90.9 cm/sec SV(LVOT): 78.8 ml Ao max P.8 mmHg LV V1 max P.3 mmHg Ao V2 mean: 87.5 cm/sec LV V1 mean P.0 mmHg Ao mean P.2 mmHg LV V1 mean: 65.8 cm/sec Ao V2 VTI: 25.2 cm LV V1 VTI: 21.4 cm AV (velocity ratio): 0.85 KARISSA(I,D): 3.1 cm2 KARISSA(V,D): 3.0 cm2 PA V2 max: 87.6 cm/sec PI end-d guido: 100.8 cm/sec TR max guido: 232.3 cm/sec TR max P.6 mmHg ECHO/Echo Complete Interpretation Summary Normal LV size. Mild concentric left ventricular hypertrophy. Septal motion consistent with bundle branch block. The left ventricular ejection fraction is 50 %. Stage 1 diastolic dysfunction. Ordering Physician: Mónica Petty Referring Physician: Mónica Petty Performed By: Rosalina Shay RDCS
== END | disposition home or self-care (01) ==
LOC: CVS 15:00
PROVIDERS: PCP Internal Medicine; Referring Provider Internal Medicine; Visit Provider Internal Medicine
DX: R01.1 Cardiac murmur, unspecified (principal)
CPT/HCPCS: 93306

== ENCOUNTER → 2025-01-04 | Outpatient (CLI) | payer MEDICARE, OTHER, SELFPAY ==
[2025-01-04 15:27] LABS: Free T3 2.9 pg/mL (2.18-3.98)
[2025-01-04 15:42] LABS: CRP 15.70 mg/L (0.0-3.0); LDH 200 U/L (84-246)
[2025-01-06 10:08] LABS: QNTFERON TB Mitogen Value > 10.00 IU/mL (.); QNTFERON TB Nil Value 0.05 IU/mL (.); QNTFERON TB1+ Ag Value 0.05 IU/mL (.); QNTFERON TB2+ Ag Value 0.06 IU/mL (.); QNTIFERON TB Positive Criteria Negative (Negative)
== END | disposition home or self-care (01) ==
LOC: MTLAB 11:43
PROVIDERS: PCP Internal Medicine; Referring Provider Internal Medicine; Visit Provider Internal Medicine
DX: R61 Generalized hyperhidrosis (principal); R63.4 Abnormal weight loss
CPT/HCPCS: 36415; 83615; 84439; 84443; 84481; 86140; 86376; 86480; 87040

== ENCOUNTER → 2025-01-18 | Outpatient (CLI) | payer MEDICARE, OTHER, SELFPAY ==
--- NOTE | 2025-01-18 12:20 | MRI_ITS ---
PROCEDURE: BREAST BILATERAL W/O AND W 01/18/2025 REASON FOR EXAM: MRI BREAST BILATERAL WO THEN W CONTRAST, HX BREAST CANCER, WILL S 74-year-old female with history of right breast cancer status post mastectomy in 2018, presents with left breast pain and dense breast tissue. TECHNIQUE: Procedure Code: [id number] Modality: MR Procedure: BREAST BILATERAL W/O AND W CONTRAST: 11 mL of IV Clariscan COMPARISON: Mammogram 10/15/2024 and 10/15/2023, ultrasound 05/12/2023 FINDINGS: TISSUE DENSITY: The breasts are heterogeneously dense, which may obscure small masses. Background Parenchymal Enhancement: Mild RIGHT Breast: Postsurgical changes of right mastectomy. There are no suspicious areas of enhancement in the mastectomy bed. LEFT Breast: No suspicious mass or non-mass enhancement. Other Findings: No suspicious axillary or internal mammary lymph nodes. Visualized portions of the thoracic and abdominal viscera are unremarkable. MRI/Breast Bilateral W/O and W IMPRESSION: There is no MR evidence of malignancy. OVERALL FINAL ASSESSMENT BI-RADS 2: BENIGN RECOMMENDATION: Routine annual follow-up in 1 Year Reading Location: [id number]
== END | disposition home or self-care (01) ==
PROVIDERS: PCP Internal Medicine; Referring Provider Internal Medicine; Visit Provider Internal Medicine
DX: N64.4 Mastodynia (principal); Z85.3 Personal history of malignant neoplasm of breast
CPT/HCPCS: 77049; A9575; A4216; C8908